=== PATIENT | female | born 1945 | race Caucasian/White ===

== ENCOUNTER 2016-04-29 20:53 | Emergency (ER) | payer OTHER ==
[~2016-04-29] VITALS: Ht 160 cm; Wt 68.0 kg
[~2016-04-29 20:53] MED LIST: CALCTAB5 PO; GABA-113 PO; LISI-788 PO; MULT-506 PO; NAPR1TAB9 PO; TRAM-10 PO
[2016-04-29 20:56] VITALS: TEMP 36.3; Ht 160 cm; Wt 68.0 kg
[2016-04-29] MEDS ORDERED: CORICIDIN PO (21:38)
[2016-04-29] MEDS ORDERED: CALC1TAB56 PO (21:38)
[2016-04-29] MEDS ORDERED: GABA-112 PO (21:38)
[2016-04-29] MEDS ORDERED: DIME50TA49 PO (21:39)
[2016-04-29] MEDS ORDERED: HYDROCODONE/ACETAMOPHEN 5/325MG TAB PO STA (21:42)
--- NOTE | 2016-04-29 22:30 | DIAGNOSTIC IMAGING REPORT ---
CHEST 2 VIEWS ROUTINE CLINICAL HISTORY: fall trauma COMPARISON STUDY: No previous studies for comparison. FINDINGS: Positive large right lateral hiatal hernia. Lungs are clear. Diaphragms smooth. HISTORY: Of scoliosis of the thoracic spine. IMPRESSION: Hiatal hernia. Spinal scoliosis. No acute process. Electronically signed by: Trip Leone M.D. 04/29/2016 10:29 PM Dictated Date/Time: 04/29/2016 10:27 PM
--- NOTE | 2016-04-29 22:32 | DIAGNOSTIC IMAGING REPORT ---
PELVIS 1 OR 2 VIEW ROUTINE CLINICAL HISTORY: fall pain COMPARISON: None DISCUSSION: Degenerative change right hip. Long-standing avascular necrosis left hip with associated substance loss left femoral head. Deformity left acetabulum. Degenerative changes low lumbar spine. . There is a fracture left pubic ring although this is obscured in part to overlying postoperative change. . IMPRESSION: 1. Nondisplaced fracture left pubic ring. 2. 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 3. No additional acute bony abnormality. Electronically signed by: Trip Leone M.D. 04/29/2016 10:31 PM Dictated Date/Time: 04/29/2016 10:29 PM
--- NOTE | 2016-04-29 22:33 | DIAGNOSTIC IMAGING REPORT ---
LUMBAR SPINE 5 VIEWS HISTORY: Trauma fall COMPARISON: None. FINDINGS: There is no fracture. Significant scoliosis. Moderate degenerative disc changes throughout. No acute compression deformity. IMPRESSION: Scoliosis. Significant degenerative change. No acute process. Electronically signed by: Trip Leone M.D. 04/29/2016 10:32 PM Dictated Date/Time: 04/29/2016 10:31 PM
[2016-04-29] MEDS ORDERED: NORCO 5/325MG HOME PACK PO ONE (22:45)
[2016-04-29] MEDS ORDERED: HYDR-5688 PO (22:48)
--- NOTE | 2016-04-29 22:57 | EMERGENCY ROOM VISIT NOTE ---
History Report prepared by Joseph: Xena Marin Under the Supervision of: Dr. Khai Saldaña D.O. First contact with patient: 21:23 Chief Complaint: FALL Stated Complaint: BACK PAIN,FALL History of Present Illness The patient is a 70 year old female who presents to the Emergency Room with complaints of a sudden fall that occurred 6 days ago. The patient was in her kitchen when she accidentally stepped on the cat and lost her balance. She fell onto her left buttock area and hit her left ribs on the corner of the counter as she fell. She denies hitting her head along with LOC. The patient states that she is experiencing pain in her left leg, which makes it hard to ambulate. The pain starts in her groin then radiates into her left lower back whenever she moves or puts weight on her left leg. She denies headaches, chest pain, shortness of breath, and abdominal pain. The patient states that she has a history of chronic back pain and is prescribed tramadol by her PCP. The tramadol has offered her minimal relief of her pain. The patient is not on any blood thinners. The patient has not seen her PCP for these symptoms. Source of History: patient Onset: 6 days ago Quality: other (fall) Timing: other (sudden) Associated Symptoms: No LOC, No SOB, No abdominal pain, No chest pain, No headache Note: left groin pain that radiates into her left lower back Review of Systems See HPI for pertinent positives & negatives. A total of 10 systems reviewed and were otherwise negative. Past Medical & Surgical Medical Problems: (1) Chronic low back pain (2) Hypertension Family History No pertinent family history Social History Smoking Status: Former Smoker Marital Status: single Current/Historical Medications Scheduled Calcium-Magnesium W/ Vitamin D (Citracal Calcium+D Slow R), 1,200 MG PO DAILY Dimenhydrinate (Dramamine), 1 TAB PO PRN UD Gabapentin (Neurontin), 300 MG PO HS Gabapentin (Neurontin), 200 MG PO BID Lisinopril/Hctz (Zestoretic 20MG/25MG), 1 TAB PO DAILY Multivitamin (Multivitamin), 1 TAB PO DAILY [Coricidin], 1 TAB PO PRN Scheduled PRN Hydrocodone/Acetaminophen 5MG/325MG (Lignum 5MG/325MG), 1 TABLET PO Q4 PRN for Pain Naproxen (Aleve), 220 MG PO Q12 PRN for Pain or Fever Tramadol (Ultram), 50-100 MG PO DAILY PRN for Pain Allergies Coded Allergies: Brimonidine (Verified Allergy, Intermediate, OTHER, 04/29/16) Toxic conjunctivitis Latex1 -Allergic Contact Dermititis (Unverified Allergy, Mild, RASH, ) Codeine (Unverified Allergy, Unknown, GI SYMPTOMS, 04/29/16) Nickel (Unverified Allergy, Unknown, RASH, 04/29/16) Oxycodone (Unverified Allergy, Unknown, GI SYMPTOMS, 04/29/16) Uncoded Allergies: LATEX1 (Allergy, Mild, RASH, 12/23/14) [id number] (Allergy, Unknown, GI SYMPTOMS, 12/23/14) [id number] (Allergy, Unknown, GI SYMPTOMS, 12/23/14) [id number] (Allergy, Unknown, RASH, 12/23/14) Physical Exam Vital Signs Date Time Temp Pulse Resp B/P Pulse Ox O2 Delivery O2 Flow Rate FiO2 04/29/16 23:00 93 20 137/97 97 Room Air 04/29/16 21:14 102 04/29/16 20:56 36.3 108 20 160/91 99 Room Air Physical Exam GENERAL: Patient is awake, alert, and in no acute distress. Patient is somewhat anxious and uncomfortable appearing. EYES: The conjunctivae are clear. The pupils are round and reactive. EARS, NOSE, MOUTH AND THROAT: The nose is without any evidence of any deformity. Mucous membranes are moist tongue is midline NECK: The neck is nontender and supple. RESPIRATORY: Normal respiratory effort is noted there is no evidence of wheezing rhonchi or rales CARDIOVASCULAR: Regular rate and rhythm noted there no murmurs rubs or gallops normal S1 normal S2 GASTROINTESTINAL: The abdomen is soft. Bowel sounds are present in all quadrants. Abdomen is nontender BACK: Low lumber spine tenderness noted to palpation. Range of motion appeared limited secondary to the pain. No step-off noted no signs of muscle spasm noted MUSCULOSKELETAL/EXTREMITIES: There is no evidence of gross deformity full range of motion is noted in the hips and shoulders SKIN: There is no obvious evidence of any rash. There are no petechiae, pallor or cyanosis noted. NEUROLOGIC: Patient is awake alert and oriented x3 strength is symmetric patellar reflexes are 2+ bilaterally Achilles tendon reflexes 1+ bilaterally great toe raise symmetric Medical Decision & Procedures ER Provider Diagnostic Interpretation: X-ray results as stated below per interpretation by me and the radiologist. CHEST 2 VIEWS ROUTINE IMPRESSION: Hiatal hernia. Spinal scoliosis. No acute process. Electronically signed by: Trip Leone M.D. 04/29/2016 10:29 PM Dictated Date/Time: 04/29/2016 10:27 PM LUMBAR SPINE 5 VIEWS IMPRESSION: Scoliosis. Significant degenerative change. No acute process. Electronically signed by: Trip Leone M.D. 04/29/2016 10:32 PM Dictated Date/Time: 04/29/2016 10:31 PM PELVIS 1 OR 2 VIEW ROUTINE IMPRESSION: 1. Nondisplaced fracture left pubic ring. 2. 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 3. No additional acute bony abnormality. Electronically signed by: Trip Leone M.D. 04/29/2016 10:31 PM Dictated Date/Time: 04/29/2016 10:29 PM Medications Administered Medications (Trade) Dose Ordered Sig/Viviane Route Start Time Stop Time Status Last Admin Dose Admin Acetaminophen/ Hydrocodone Bitart (Lignum 5/325 Tab) 2 tab ONE STAT PO 04/29/16 21:42 04/29/16 21:44 DC 04/29/16 22:25 2 TAB Acetaminophen/ Hydrocodone Bitart (Lignum 5/325mg Home Pack) 1 homepack UD ONCE PO 04/29/16 22:45 04/29/16 22:47 DC 04/29/16 22:58 1 HOMEPACK ED Course 2124: The medical student evaluated the patient at this time. We discussed her findings and potential treatment plans. 2137: The patient was evaluated in room C10. A complete history and physical examination were performed. 2141: Ordered Acetaminophen/Hydrocodone Bitart 2 tab PO 2244: Ordered Acetaminophen/Hydrocodone Bitart 1 homepack PO 2247: Upon the medical student's reevaluation, the patient is doing well. The medical student discussed the results and treatment plan with the patient. The patient verbalized agreement of the treatment plan. The patient was discharged home. Medical Decision Prior records/ancillary studies reviewed. Triage Nursing notes reviewed. The patient's history was concerning for back pain. Differential diagnosis: Etiologies such as musculoskeletal, disc herniation, fracture, aortic disease, metastatic disease, cord compression, discitis, infection, renal colic, gastrointestinal, acute exacerbation of chronic back pain, sciatica, cauda equina, as well as others were entertained. The patient is a 70-year-old female who presented to the emergency department for evaluation after a fall. The patient had a fall from a standing position and had pain in her left groin. She also had pain across her lower back. The patient's x-rays did reveal signs of a pelvic fracture. The patient was treated with pain medication in the emergency department. She was reevaluated multiple times. She was encouraged to rest and avoid any strenuous activity. She was also encouraged to continue all medications as prescribed. She's also encouraged to return the emergency Department immediately if symptoms change worsen or the need arises. Impression Primary Impression: Fall Additional Impressions: Lumbar contusion Pelvic fracture Scribe Attestation The scribe's documentation has been prepared under my direction and personally reviewed by me in its entirety. I confirm that the note above accurately reflects all work, treatment, procedures, and medical decision making performed by me. Departure Information Dispostion Home / Self-Care Prescriptions Hydrocodone/Acetaminophen 5MG/325MG (Lignum 5MG/325MG) Tab 1 TABLET PO Q4 Y for Pain, #20 TAB Prov: Khai Saldaña, 04/29/16 Referrals Jeremiah Alvarado M.D. (PCP) Forms HOME CARE DOCUMENTATION FORM, IMPORTANT VISIT INFORMATION Patient Instructions ED Back Pain Acute Chronic, ED Fx Pelvis, [facility] Additional Instructions Call your family to schedule a follow-up appointment. Rest and avoid any strenuous activity. Continue all medications as prescribed. Return to the emergency department immediately if symptoms change worsen or the need arises. If you are going to take the stronger pain medication be sure to take an over- the-counter laxative such as Miralax Problem Qualifiers Primary Impression: Fall Encounter type: initial encounter Qualified Codes: W19.XXXA - Unspecified fall, initial encounter Additional Impressions: Lumbar contusion Encounter type: initial encounter Qualified Codes: S30.0XXA - Contusion of lower back and pelvis, initial encounter Pelvic fracture Encounter type: initial encounter Pelvic bone location: unspecified part of pelvis Fracture type: closed Fracture alignment: nondisplaced Qualified Codes: S32.9XXA - Fracture of unspecified parts of lumbosacral spine and pelvis , initial encounter for closed fracture
[2016-04-29 23:00] VITALS: BP 137/97; PULSE 93; O2SAT 97
[2016-10-05] MEDS ORDERED: NRT25 PO (16:31)
[2016-10-05] MEDS ORDERED: CMD4 PO (16:31)
[2016-10-05] MEDS ORDERED: RCPAV2 IV (16:31)
[2016-10-05] MEDS ORDERED: CRDCD180 PO (16:31)
[2016-10-05] MEDS ORDERED: DLD2 PO (16:50)
[2016-10-18] MEDS ORDERED: CETI10TA84 PO (13:19)
[2016-10-18] MEDS ORDERED: FRRS300 PO (13:19)
[2016-11-26] MEDS ORDERED: HYDR2TAB48 PO (21:43)
[2016-11-26] MEDS ORDERED: TRAM-10 PO (21:43)
[2016-11-28] MEDS ORDERED: DAPTOMYCIN IV ×2 (09:46→09:48)
== END 2016-04-29 23:06 | disposition home or self-care (01) ==
LOC: C.EDB 20:54 → C.EDC 23:06
DX: S32.502A Unspecified fracture of left pubis, initial encounter for closed fracture (principal); S30.0XXA Contusion of lower back and pelvis, initial encounter; G89.29 Other chronic pain; I10 Essential (primary) hypertension; Z79.899 Other long term (current) drug therapy; Z88.5 Allergy status to narcotic agent; Z88.8 Allergy status to other drugs, medicaments and biological substances; Z91.040 Latex allergy status; Z87.891 Personal history of nicotine dependence; W01.10XA Fall on same level from slipping, tripping and stumbling with subsequent striking against unspecified object, initial encounter

== ENCOUNTER 2016-09-26 20:07 | Inpatient (IN) | payer OTHER ==
[~2016-09-26] VITALS: Ht 160 cm; Wt 70.2 kg
[~2016-09-26 20:07] MED LIST changes: +CALC1TAB56 PO; -CALCTAB5 PO; +CORICIDIN PO; +DIME50TA49 PO; +GABA-112 PO
[2016-09-26] MEDS ORDERED: MULT-845 PO (21:04)
[2016-09-26] MEDS ORDERED: CHLOTAB10 PO (21:04)
[2016-09-26] MEDS ORDERED: FAMO20TA11 PO (21:04)
[2016-09-26] MEDS ORDERED: TRAV0.00 OPB (21:04)
[2016-09-26] MEDS ORDERED: ACET-749 PO (21:07)
[2016-09-26] MEDS ORDERED: SODIUM CHLORIDE 0.9% 1000ML 1,000 ML IV STA (21:25)
[2016-09-26] MEDS ORDERED: ONDANSETRON INJ 2 MG/ML 2 ML VIAL IV STA (21:25)
[2016-09-26 21:32] LABS: BASO ABS # 0.01 K/uL (0-0.2); COMPLETE YES; HEMATOCRIT 32.1 % (37-47); IG% 0.4 %; LYMPH % 3.4 %; LYMPH ABS # 0.71 K/uL (1.2-3.4); MEAN CELL VOLUME 86.8 fL (80-100); MEAN CORPUSCULAR HEMOGLOBIN 30.8 pg (25-34); MEAN CORPUSCULAR HGB CONC 35.5 g/dl (32-36); MEAN PLATELET VOLUME 9.3 fL (7.4-10.4); MONO % 9.1 %; NEUT % 87.1 %; PLATELET COUNT 219 K/uL (130-400); WHITE BLOOD COUNT 20.85 K/uL (4.8-10.8)
--- NOTE | 2016-09-26 21:42 | EMERGENCY ROOM VISIT NOTE ---
History Report prepared by Joseph: Shannon Niño Under the Supervision of: Dr. Khai Saldaña D.O. First contact with patient: 21:19 Chief Complaint: BACK PAIN Stated Complaint: left groin/hip/back pain chronic History of Present Illness The patient is a 70 year old female who presents to the Emergency Room with complaints of persistent back pain that began yesterday around 2100. She currently rates her discomfort as a 3/10 in severity. The patient reports a long history of spinal stenosis and orthopedic problems. She states that she last had an epidural in the middle of August that typically alleviates her discomfort. The patient states that she cannot have another one until October or November. She states that last evening as she was walking to bed, she suddenly developed pain into her left groin that radiated into her left hip and left back. The patient states that she has never had pain this severe in the past. She states that she began hyperventilating because the pain was so severe. The patient states that when the pain began she took Aleve and got into bed around 2100, she denies any relief of her symptoms. The patient states that at 0200 she took Tramadol that allowed her to sleep for a little. She states that at 0600 she took another Tramadol without relief of her symptoms. The patient states that she had a left over prescribed Tylenol from one year ago, noting that she took that this morning that alleviated her pain for a slight amount of time. The patient states that her pain returned at 1400 and has been persistent since then. She reports worsened pain with movement and denies any injury. The patient states that she arrived via ALS, but was not given any medication en-route to the department. She denies any increased urination or hematuria. The patient denies any chest pain or shortness of breath. Source of History: patient Onset: yesterday around 2100 Position: back Symptom Intensity: 3/10 Timing: other (persistent) Modifying Factors (Worsening): movement Modifying Factors (Relieving): other (tramadol and prescription tylenol) Associated Symptoms: No chest pain, No SOB, No urinary symptoms Note: Associated Symptoms: hyperventilating, left groin pain, left groin pain Review of Systems See HPI for pertinent positives & negatives. A total of 10 systems reviewed and were otherwise negative. Past Medical & Surgical Medical Problems: (1) Chronic low back pain (2) Hypertension (3) Sepsis Family History No pertinent family history Social History Smoking Status: Former Smoker Marital Status: single Occupation Status: retired Current/Historical Medications Scheduled Calcium-Magnesium W/ Vitamin D (Citracal Calcium+D Slow R), 1,200 MG PO DAILY Dimenhydrinate (Dramamine), 1 TAB PO PRN UD Gabapentin (Neurontin), 300 MG PO HS Gabapentin (Neurontin), 200 MG PO BID Lisinopril/Hctz (Zestoretic 20MG/25MG), 1 TAB PO DAILY Multiple Vitamins W/ Minerals (Centrum Silver Adult 50+), 1 TAB PO DAILY Travoprost (Travatan Z), 1 DROPS OPB HS Scheduled PRN Acetaminophen/Codeine (Tylenol W/Codeine #3), 1 TAB PO DIRECTED PRN for Pain Chlorpheniramine-Dm (Coricidin Hbp Cough & Col), 1 TAB PO DIRECTED PRN for CONGESTION Famotidine (Pepcid), 20 MG PO DIRECTED PRN for Indigestion Naproxen (Aleve), 220 MG PO Q12 PRN for Pain or Fever Tramadol (Ultram), 50-100 MG PO DAILY PRN for Pain Allergies Coded Allergies: Latex1 -Allergic Contact Dermititis (Verified Allergy, Severe, RESPIRATORY DISTRESS, 09/26/16) Brimonidine (Verified Allergy, Intermediate, OTHER-SEE COMMENT, 09/26/16) Toxic conjunctivitis Nickel (Verified Allergy, Unknown, RASH, 09/26/16) Oxycodone (Verified Allergy, Unknown, GI SYMPTOMS, 09/26/16) PT STATES "CAN TAKE TYENOL W/CODIENE WITH OUT ANY DIFFICULTY". Diphenhydramine (Verified Adverse Reaction, Severe, DELIRIUM, 09/27/16) as per patient opposite effect Physical Exam Vital Signs Date Time Temp Pulse Resp B/P (MAP) Pulse Ox O2 Delivery O2 Flow Rate FiO2 09/26/16 22:40 94 18 139/73 96 Room Air 09/26/16 21:59 101 09/26/16 20:08 37.6 100 18 128/81 95 Room Air Physical Exam GENERAL: Patient is awake, alert, very anxious appearing and significantly uncomfortable. EYES: The conjunctivae are clear. The pupils are round and reactive. EARS, NOSE, MOUTH AND THROAT: The nose is without any evidence of any deformity. Mucous membranes are moist tongue is midline NECK: The neck is nontender and supple. RESPIRATORY: Normal respiratory effort is noted there is no evidence of wheezing rhonchi or rales CARDIOVASCULAR: Regular rate and rhythm noted there no murmurs rubs or gallops normal S1 normal S2 GASTROINTESTINAL: Mildly distended, but soft, no specific tenderness, guarding or rigidity noted. PELVIS: The Pelvis is stable. No tenderness to palpation is noted. BACK: Significant scoliotic change noted. Range of motion appears intact, but limited with pain. MUSCULOSKELETAL/EXTREMITIES: Significant pain with range of motion of the left hip. No shortening or deformity appreciated. SKIN: Pedal edema noted bilaterally. Skin is warm and dry. NEUROLOGIC: Patient is awake alert and oriented x3 strength is symmetric patellar reflexes are absent bilaterally. Medical Decision & Procedures ER Provider Diagnostic Interpretation: Radiology results as stated below per my review and radiologist interpretation: ABD/PELVIS NO IV OR ORAL CONT CT DOSE: 339.07 mGy.cm HISTORY: Pain left flank pain TECHNIQUE: Multiaxial CT images of the abdomen and pelvis were performed without contrast. A dose lowering technique was utilized adhering to the principles of ALARA. COMPARISON STUDY: None. FINDINGS: Lung bases are clear. There is anterior diaphragmatic hernia containing nonobstructive loops of bowel. This has been present previously. Liver is unremarkable as is the spleen. Kidneys negative for necrosis. There is chronic perinephric infiltrative change. Bowel pattern overall is nonobstructive. There is a small anterior periumbilical hernia possibly with a small nonobstructive localized adhesion area There are findings of chronic sigmoid diverticulosis. No evidence for acute diverticulitis. Considerable degenerative change of the osseous structures throughout. Severe degenerative change left hip with extensive subchondral cyst formation. Complex left hip joint effusion. Moderate degenerative change right hip. No significant right-sided effusion. IMPRESSION: 1. Severe degenerative change left hip with rather significant joint effusion. 2. Subchondral cystic formation left femoral head and to lesser extent left acetabulum. 3. All of the findings are potentially degenerative,, although I cannot entirely exclude an inflammatory component. 4. Chronic sigmoid diverticulosis. 5. Postoperative changes as noted. The above report was generated using voice recognition software. It may contain grammatical, syntax or spelling errors. Electronically signed by: Trip Leone M.D. 09/26/2016 10:30 PM Dictated Date/Time: 09/26/2016 10:25 PM CHEST ONE VIEW PORTABLE CLINICAL HISTORY: abd pain COMPARISON STUDY: 04/29/2016 FINDINGS: Elevation right hemidiaphragm with an interposed right hiatal hernia. This is similar compared to the prior study. Lungs are clear. Minimal chronic atelectatic change left base. IMPRESSION: Fixed hiatal hernia. Chronic changes as noted. No acute process. The above report was generated using voice recognition software. It may contain grammatical, syntax or spelling errors. Electronically signed by: Trip Leone M.D. 09/26/2016 10:16 PM Dictated Date/Time: 09/26/2016 10:15 PM Laboratory Results Test 09/26/16 20:15 09/26/16 23:19 09/26/16 23:20 09/26/16 23:30 Prothrombin Time 12.4 SECONDS (9.0-12.0) Prothromb Time International Ratio 1.2 (0.9-1.1) Activated Partial Thromboplast Time 34.4 SECONDS (21.0-31.0) Partial Thromboplastin Ratio 1.3 Total Bilirubin 0.7 mg/dl (0.2-1) Direct Bilirubin 0.2 mg/dl (0-0.2) Aspartate Amino Transf (AST/SGOT) 31 U/L (15-37) Alanine Aminotransferase (ALT/SGPT) 33 U/L (12-78) Alkaline Phosphatase 72 U/L (45-117) Total Protein 7.3 gm/dl (6.4-8.2) Albumin 3.8 gm/dl (3.4-5.0) Lipase 80 U/L (73-393) Thyroid Stimulating Hormone (TSH) 2.290 uIu/ml (0.300-4.500) Lyme Disease IgG Antibody NEG (NEG) Lyme Disease IgM Antibody NEG (NEG) Lactic Acid Level 1.4 mmol/L (0.4-2.0) Urine Color YELLOW Urine Appearance CLOUDY (CLEAR) Urine pH 5.5 (4.5-7.5) Urine Specific [place] 1.015 (1.000-1.030) Urine Protein NEG (NEG) Urine Glucose (UA) NEG (NEG) Urine Ketones TRACE (NEG) Urine Occult Blood TRACE (NEG) Urine Nitrite NEG (NEG) Urine Bilirubin NEG (NEG) Urine Urobilinogen NEG (NEG) Urine Leukocyte Esterase MODERATE (NEG) Urine WBC (Auto) >30 /hpf (0-5) Urine RBC (Auto) 0-4 /hpf (0-4) Urine Hyaline Casts (Auto) 5-10 /lpf (0-5) Urine Epithelial Cells (Auto) 5-10 /lpf (0-5) Urine Bacteria (Auto) 4+ (NEG) Urine Osmolality 418 mOms/kg (500-800) Urine Random Sodium 35 mEq/L Laboratory results per my review. Medications Administered Medications (Trade) Dose Ordered Sig/Viviane Route Start Time Stop Time Status Last Admin Dose Admin Sodium Chloride 1,000 ml @ 999 mls/hr Q1H1M STAT IV 09/26/16 21:25 09/26/16 22:25 DC 09/26/16 21:43 999 MLS/HR Ondansetron HCl (Zofran Inj) 4 mg NOW STAT IV 09/26/16 21:25 09/26/16 21:27 DC 09/26/16 21:43 4 MG Morphine Sulfate (MoRPHine SULFATE INJ) 4 mg Q15M PRN IV 09/26/16 21:30 09/27/16 00:41 DC 09/26/16 23:08 4 MG Ceftriaxone Sodium (Rocephin Inj) 2 gm NOW STAT IV 09/26/16 22:35 09/26/16 22:37 DC 09/26/16 23:08 2 GM Potassium Chloride (Klor-Con M10) 40 meq NOW STAT PO 09/26/16 23:07 09/26/16 23:17 DC 09/26/16 23:52 40 MEQ Acetaminophen (Tylenol Tab) 650 mg ONE STAT PO 09/26/16 23:17 09/26/16 23:18 DC 09/26/16 23:53 650 MG Vancomycin HCl 1400 mg/Sodium Chloride 528 ml @ 200 mls/hr NOW STAT IV 09/26/16 23:17 09/27/16 01:55 DC 09/26/16 23:53 200 MLS/HR ED Course 2121: The patient was evaluated in room C10. A complete history and physical examination were performed. 2124: Ordered Zofran Inj 4 mg IV, Sodium Chloride 1000 ml @ 999 mls/hr IV. 2129: Ordered Morphine Sulfate 4 mg IV. 2234: Ordered Vancomycin HCl 1400 mg/Sodium Chloride 278 ml @ 125 mls/hr IV, Rocephin Inj 2 gm IV. 2236: I reevaluated the patient and she is still not feeling well. I discussed the exam findings with her and I discussed the treatment plan. She verbalized complete understanding and agreement. She will be evaluated for further treatment. 2302: I discussed the patients case with Gucci Dwyer. He is going to evaluate the patient for further treatment. 0: I discussed the patients case with Dr. Aguilera, Orthopedics. He recommends antibiotics and joint aspiration tomorrow. Medical Decision Differential diagnosis: Etiologies such as musculoskeletal, disc herniation, fracture, aortic disease, metastatic disease, cord compression, discitis, infection, renal colic, gastrointestinal, acute exacerbation of chronic back pain, sciatica, cauda equina, as well as others were entertained. Nursing notes reviewed. Additional history is obtained from the prehospital personnel. The patient is a 70-year-old female who presented to the emergency department for an evaluation of back pain. The patient has a history of chronic back pain but states she had an acute onset of left groin pain today. Initially I thought the patient's condition could be consistent with a kidney stone because of the radiation of the back pain to the left groin. She had pain with range of motion of the left hip. I discussed the patient's laboratory and radiographic studies with her. She appeared to have a very significant elevation in her white blood cell count. Her inflammatory markers were also elevated. She was treated with IV fluids IV pain medicine and IV antiemetics. She was also treated with IV antibiotics for presumed septic joint. On CAT scan the patient appeared to have a large effusion of the left hip. I discussed her case with the on-call [employer] hospitalist as well as the on-call orthopedic physician. The patient will have an aspiration of her left hip to determine if this represents a septic joint. The meantime she'll receive IV antibiotic. I discussed the patient 's condition with her. She is agreeable to this plan at this time. Medication Reconcilliation Current Medication List: was personally reviewed by me Blood Pressure Screening Patient's blood pressure: Normal blood pressure Blood pressure disposition: Did not require urgent referral Consults Time Called: 2244 Consulting Physician: Gucci Dwyer Returned Call: [phone] I discussed the patients case with Gucci Dwyer. He is going to evaluate the patient for further treatment. Additional Consults: Time Called: 2244 Consulted Physician: Dr. Aguilera, Orthopedis Returned Call: [phone] Additional Comments: I discussed the patients case with Dr. Aguilera, Orthopedics. He recommends antibiotics and joint aspiration tomorrow. Impression Primary Impression: Left hip pain Additional Impressions: Effusion, left hip Possible septic joint Hyponatremia Abnormal white blood cell count UTI (urinary tract infection) Scribe Attestation The scribe's documentation has been prepared under my direction and personally reviewed by me in its entirety. I confirm that the note above accurately reflects all work, treatment, procedures, and medical decision making performed by me. Departure Information Dispostion Being Evaluated By Hospitalist Referrals Jeremiah Alvarado M.D. (PCP) Problem Qualifiers Additional Impressions:
[2016-09-26] MEDS: MoRPHine SULFATE 4 MG/ML 1 ML CARP\\VIAL IV PRN ×2 (21:43→23:08)
[2016-09-26 21:44] LABS: INR 1.2 (0.9-1.1); PARTIAL THROMBOPLASTIN RATIO 1.3; PROTHROMBIN TIME (PATIENT) 12.4 SECONDS (9.0-12.0)
[2016-09-26 21:49] LABS: BUN/CREATININE RATIO 21.5 (10-20); CALCIUM 9.5 mg/dl (8.5-10.1); POTASSIUM 3.1 mmol/L (3.5-5.1)
--- NOTE | 2016-09-26 22:17 | DIAGNOSTIC IMAGING REPORT ---
CHEST ONE VIEW PORTABLE CLINICAL HISTORY: abd pain COMPARISON STUDY: 04/29/2016 FINDINGS: Elevation right hemidiaphragm with an interposed right hiatal hernia. This is similar compared to the prior study. Lungs are clear. Minimal chronic atelectatic change left base. IMPRESSION: Fixed hiatal hernia. Chronic changes as noted. No acute process. The above report was generated using voice recognition software. It may contain grammatical, syntax or spelling errors. Electronically signed by: Trip Leone M.D. 09/26/2016 10:16 PM Dictated Date/Time: 09/26/2016 10:15 PM
--- NOTE | 2016-09-26 22:32 | DIAGNOSTIC IMAGING REPORT ---
ADDENDUM Comparison to a routine pelvic series dated 04/29/2016 demonstrates that the changes of the left hip potentially relate to the patient's long-standing avascular process. It appears to be unchanged compared to the prior study. Electronically signed by: Trip Leone M.D. 09/27/2016 4:42 PM Dictated Date/Time: 09/27/2016 4:40 PM ORIGINAL REPORT ABD/PELVIS NO IV OR ORAL CONT CT DOSE: 339.07 mGy.cm HISTORY: Pain left flank pain TECHNIQUE: Multiaxial CT images of the abdomen and pelvis were performed without contrast. A dose lowering technique was utilized adhering to the principles of ALARA. COMPARISON STUDY: None. FINDINGS: Lung bases are clear. There is anterior diaphragmatic hernia containing nonobstructive loops of bowel. This has been present previously. Liver is unremarkable as is the spleen. Kidneys negative for necrosis. There is chronic perinephric infiltrative change. Bowel pattern overall is nonobstructive. There is a small anterior periumbilical hernia possibly with a small nonobstructive localized adhesion area There are findings of chronic sigmoid diverticulosis. No evidence for acute diverticulitis. Considerable degenerative change of the osseous structures throughout. Severe degenerative change left hip with extensive subchondral cyst formation. Complex left hip joint effusion. Moderate degenerative change right hip. No significant right-sided effusion. IMPRESSION: 1. Severe degenerative change left hip with rather significant joint effusion. 2. Subchondral cystic formation left femoral head and to lesser extent left acetabulum. 3. All of the findings are potentially degenerative,, although I cannot entirely exclude an inflammatory component. 4. Chronic sigmoid diverticulosis. 5. Postoperative changes as noted. The above report was generated using voice recognition software. It may contain grammatical, syntax or spelling errors. Electronically signed by: Trip Leone M.D. 09/26/2016 10:30 PM Dictated Date/Time: 09/26/2016 10:25 PM
[2016-09-26] MEDS ORDERED: VANCOMYCIN INJ 1,400 MG in SODIUM CHLORIDE 0.9% 250ML 250 ML IV STA (22:35)
[2016-09-26] MEDS ORDERED: CEFTRIAXONE SOD INJ 1 GM ADDVIAL IV STA (22:35)
[2016-09-26 23:05] LABS: C-REACTIVE PROTEIN 24.2 mg/dl (0-0.29)
[2016-09-26] MEDS ORDERED: POTASSIUM CHLORIDE 10 MEQ TABCR PO STA (23:07)
[2016-09-26] MEDS ORDERED: ACETAMINOPHEN 325 MG TAB PO PRN (23:15)
[2016-09-26] MEDS ORDERED: VANCOMYCIN INJ 1,400 MG in SODIUM CHLORIDE 0.9% 500ML 500 ML IV STA (23:17)
[2016-09-26] MEDS ORDERED: ACETAMINOPHEN 325 MG TAB PO STA (23:17)
[2016-09-26 23:22] LABS: LYME DISEASE AB IGG NEG (NEG); LYME DISEASE AB IGM NEG (NEG)
[2016-09-26 23:34] LABS: URINE APPEARANCE CLOUDY (CLEAR); URINE BILIRUBIN NEG (NEG); URINE COLOR YELLOW; URINE NITRITE NEG (NEG); URINE PH 5.5 (4.5-7.5); URINE SPECIFIC GRAVITY 1.015 (1.000-1.030); UROBILINOGEN NEG (NEG)
[2016-09-26 23:39] LABS: MANUAL MICROSCOPIC REQUIRED? NO; REVIEW REQ? NO
[2016-09-26 23:49] LABS: MAGNESIUM 1.1 mg/dl (1.8-2.4)
[2016-09-27 00:06] LABS: THYROID STIMULATING HORMONE 2.29 uIu/ml (0.300-4.500)
[2016-09-27] MEDS ORDERED: THIAMINE HCL 100 MG/ML 2 ML VIAL IV STA (00:25)
[2016-09-27] MEDS ORDERED: ACETAMINOPHEN 325 MG TAB PO PRN (00:30)
[2016-09-27] MEDS ORDERED: LORAZEPAM 2 MG/ML 1 ML VIAL IV PRN (00:30)
[2016-09-27] MEDS ORDERED: IBUPROFEN 200 MG TAB PO PRN (00:30)
[2016-09-27] MEDS ORDERED: HYDROmorphone INJ 0.5 MG/0.5 ML SYR IV PRN (00:30)
[2016-09-27] MEDS ORDERED: DOCUSATE SODIUM 100 MG CAP PO STA (00:49)
[2016-09-27] MEDS ORDERED: LIDODERM (LIDOCAINE) PATCH 5% TD STA (00:53)
[2016-09-27] MEDS ORDERED: VANCOMYCIN CONSULT ACTIVE PRN (01:00)
[2016-09-27] MEDS ORDERED: KETOROLAC TROMETHAMINE 30 MG/ML VIAL IV STA (01:06)
[2016-09-27] MEDS ORDERED: LORAZEPAM INJ 0.5 MG in SYRINGE 0.75 ML IV PRN (01:15)
[2016-09-27] MEDS ORDERED: THIAMINE HCL INJ 100 MG in SYRINGE 9 ML IV SCH (01:30)
[2016-09-27] MEDS: NSS + 20MEQ KCL 1000ML 1,000 ML IV SCH ×2 (02:00→22:01)
[2016-09-27] MEDS: MAGNESIUM SULFATE 1GM / D5W 1 GM in PREMIXED IN D5W 100 ML IV SCH ×3 (02:04→05:43)
--- NOTE | 2016-09-27 02:47 | HISTORY & PHYSICAL EXAMINATION ---
DATE OF ADMISSION: 09/27/2016 PRIMARY CARE PHYSICIAN: Dr. Alvarado. CHIEF COMPLIANT: Left hip pain. HISTORY OF PRESENT ILLNESS: History obtained from patient and records. Medical history significant for hypertension, past tobacco abuse, chronic back pain, on narcotics, chronic hyponatremia, chronic anemia (baseline hemoglobin 11). Patient has had chronic back pain/chronic sciatica for years. Not interested in surgery. Patient moved to [place] a few years ago. July 2016, she had L5-S1 transforaminal epidural steroid injection by [facility] resulting in 80% relief of radicular left pain. On followup of pain management last month. Tramadol p.r.n. prescribed outpatient and epidural steroid injection as indicated. Recommendation for surgical referral w/c patient declined as per records. Last night, the patient had worsening of achy low back pain on the left, going to the left lateral thigh. Some chills. No chest pain, no shortness of breath. At the Emergency Room, the patient received vancomycin and ceftriaxone for septic arthritis. MEDICAL HISTORY: As above. SURGERIES: She has had hernia surgery. HOME MEDICATIONS: Include lisinopril/HCTZ, gabapentin, tramadol, Aleve, Travatan, Neurontin, Tylenol with Codeine, Dramamine, Pepcid. ALLERGIES: TO LATEX, OXYCODONE, NICKEL, BRIMONIDINE. FAMILY HISTORY: Hypertension. PERSONAL AND SOCIAL HISTORY: Past tobacco abuse. 6 drinks a week, denies abuse. 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 Lives with daughter. REVIEW OF SYSTEMS: As per HPI, all other ROS negative. PHYSICAL EXAMINATION: VITAL SIGNS: Blood pressure was noted to be 120/81, pulse rate 100, RR 18, temperature 37.6, sats 95 on room air. GENERAL: Noted to be comfortable, no respiratory distress. SKIN: Pallor. HEENT: Pale palpebral conjunctivae. Dry mucosa. Chronic lip asymmetry. NECK: No JVD. Supple. CHEST: Decreased breath sounds. HEART: Regular rate and rhythm. ABDOMEN: Soft. EXTREMITIES: tender left hip. Pain with motion. NEUROLOGIC: No gross focality. LABORATORY DATA: Hemoglobin was noted to be 11.4, hematocrit 31.1, white cell count 20, platelets 219. Sodium noted to be 120, potassium 3.1, chloride 103, CO2 26, BUN 22, creatinine 1, glucose 80. CT abdomen and pelvis showed severe arthritis left hip with significant joint effusion, subchondral cystic formation left femoral head, left acetabulum, potential degenerative, cannot exclude inflammatory, chronic sigmoid diverticulosis. ASSESSMENT: 1. Sepsis, possibly secondary to left hip joint. History of left L5-S1 transforaminal epidural steroid injection for chronic back pain. 2. Chronic anemia, hemoglobin at baseline. 3. Hypertension, stable. 4. Acute on chronic hyponatremia; hypokalemia secondary to clinical dehydration , home diuretic rx 5. Past tobacco abuse. PLAN: GMF CS, IV vancomycin for now. Orthopedics consult, L hip pain/effusion (ER physician already in touch with Dr. Aguilera) He recommends consulting IR for possible joint aspiration under fluoro careful correction of sodium. Hold home diuretics for now Replace potassium. Check mag. DVT prophylaxis, Lovenox subcu. Full code. MTDD
[2016-09-27 05:11] VITALS: BP 153/74; TEMP 36.9; Ht 160 cm; Wt 70.2 kg
[2016-09-27 05:57] LABS: BASO ABS # 0.01 K/uL (0-0.2); COMPLETE YES; HEMATOCRIT 27.8 % (37-47); IG% 0.5 %; LYMPH % 2.5 %; LYMPH ABS # 0.51 K/uL (1.2-3.4); MEAN CELL VOLUME 87.4 fL (80-100); MEAN CORPUSCULAR HEMOGLOBIN 30.8 pg (25-34); MEAN CORPUSCULAR HGB CONC 35.3 g/dl (32-36); MEAN PLATELET VOLUME 8.7 fL (7.4-10.4); MONO % 8.4 %; NEUT % 88.6 %; PLATELET COUNT 185 K/uL (130-400); RED BLOOD COUNT 3.18 M/uL (4.2-5.4); WHITE BLOOD COUNT 20.53 K/uL (4.8-10.8)
[2016-09-27 06:41] LABS: BUN/CREATININE RATIO 18.8 (10-20); CALCIUM 8.4 mg/dl (8.5-10.1); CREATININE 1.1 mg/dl (0.60-1.20); MAGNESIUM 2.1 mg/dl (1.8-2.4); POTASSIUM 2.9 mmol/L (3.5-5.1)
[2016-09-27 07:19] VITALS: BP 117/61; PULSE 100; TEMP 36.5; O2SAT 96
[2016-09-27] MEDS: ONDANSETRON INJ 2 MG/ML 2 ML VIAL IV PRN ×2 (07:36→20:45)
[2016-09-27] MEDS: HYDROCODONE/ACETAMOPHEN 5/325MG TAB PO PRN ×2 (07:36→20:45)
[2016-09-27] MEDS: LISINOPRIL 20 MG TAB PO SCH (07:37)
[2016-09-27] MEDS: ENOXAPARIN 30 MG/0.3 ML SYR SQ SCH (07:37)
[2016-09-27] MEDS: CEROVITE ADV FORMULA TAB PO SCH (07:38)
[2016-09-27] MEDS: GABAPENTIN 100 MG CAP PO SCH ×2 (07:38→14:55)
[2016-09-27 08:00] VITALS: O2SAT 96
--- NOTE | 2016-09-27 09:28 | Pharmacy Progress Note ---
Pharmacy Abx Initial Consult Date of Service Sep 27, 2016. Pharmacy Dosing Scope Date of Consult: 09/27/16 Consultation requested by: Dr. Andres Will Pharmacy is consulted to initiate Vancomycin IV dosing therapy, order appropriate labs and adjust drug dose/frequency. Subjective The patient is a 70 year old female admitted on Sep 27, 2016 at 00:00 with left hip pain and possible sepsis secondary to a septic left hip joint. Objective Height (Feet): 5 Height (Inches): 3.00 Weight (Kilograms): 69.700 Vital Signs (Past 12Hrs) Vital Signs Past 12 Hours Date Time Temp Pulse Resp B/P (MAP) Pulse Ox O2 Delivery O2 Flow Rate FiO2 09/27/16 07:19 36.5 100 18 117/61 (79) 96 Room Air 09/27/16 05:11 36.9 18 153/74 Room Air 09/27/16 01:05 36.9 104 18 153/74 96 09/26/16 22:40 94 18 139/73 96 Room Air 09/26/16 21:59 101 Lab Results (24Hrs) Laboratory Tests (24 Hours) Test 09/26/16 20:15 09/26/16 23:19 09/27/16 05:20 C-Reactive Protein 24.20 mg/dl (0-0.29) H Erythrocyte Sedimentation Rate 25 mm/hr (0-21) H Lactic Acid Level 1.4 mmol/L (0.4-2.0) White Blood Count 20.53 K/uL (4.8-10.8) H Red Blood Count 3.18 M/uL (4.2-5.4) L Hemoglobin 9.8 g/dL (12.0-16.0) L Hematocrit 27.8 % (37-47) L Mean Corpuscular Volume 87.4 fL (80-100) Mean Corpuscular Hemoglobin 30.8 pg (25-34) Mean Corpuscular Hemoglobin Concent 35.3 g/dl (32-36) Platelet Count 185 K/uL (130-400) Mean Platelet Volume 8.7 fL (7.4-10.4) Neutrophils (%) (Auto) 88.6 % Lymphocytes (%) (Auto) 2.5 % Monocytes (%) (Auto) 8.4 % Eosinophils (%) (Auto) 0.0 % Basophils (%) (Auto) 0.0 % Neutrophils # (Auto) 18.19 K/uL (1.4-6.5) H Lymphocytes # (Auto) 0.51 K/uL (1.2-3.4) L Monocytes # (Auto) 1.72 K/uL (0.11-0.59) H Eosinophils # (Auto) 0.00 K/uL (0-0.5) Basophils # (Auto) 0.01 K/uL (0-0.2) Micro Results Date/Time Source Procedure Growth Status 09/26/16 23:19 Blood Blood Culture Pending Received 09/26/16 23:13 Blood Blood Culture Pending Received 09/27/16 08:49 Joint Fluid/Space (Synovial) Hip , Left Gram Stain Pending Ordered 09/27/16 08:49 Joint Fluid/Space (Synovial) Hip , Left Bacterial Culture Pending Ordered 09/26/16 23:30 Urine , Clean Catch Urine Culture Pending Received Assessment & Plan Assessment 70 year old female admitted overnight with left hip pain, possible sepsis, secondary to a septic left hip joint. Vancomycin IV initiated empirically pending culture results. Blood cultures, urine culture and joint space culture pending. Will order MRSA nasal swab. Plan IV Vancomycin for treatment of skin and skin structure infection involving the left hip joint and possible sepsis. Vancomycin IV * Loading dose: 1400 mg (20 mg/kg) * Maintenance dose: 1050 mg IV (15 mg/kg) every 18] hours * Goal trough level for septic hip joint/sepsis: 15 to 20 mcg/mL * Trough level ordered for 09/29/16 prior to the 2000 hours IV Vancomycin dose Pharmacy will continue to follow and will adjust dose/frequency as necessary. Thank you.
[2016-09-27] MEDS: KETOROLAC TROMETHAMINE 15 MG/ML VIAL IV. PRN ×3 (09:32→22:11)
[2016-09-27 14:51] VITALS: BP 128/73; PULSE 103; TEMP 36.6; O2SAT 99
[2016-09-27] MEDS: VANCOMYCIN INJ 1,050 MG in SODIUM CHLORIDE 0.9% 250ML 250 ML IV SCH (14:54)
[2016-09-27 16:00] VITALS: O2SAT 99
[2016-09-27 17:01] LABS: BUN/CREATININE RATIO 20.3 (10-20); CREATININE 0.98 mg/dl (0.60-1.20); POTASSIUM 3.3 mmol/L (3.5-5.1)
--- NOTE | 2016-09-27 17:12 | Orthopedic Consultation ---
Orthopedic Consultation Date of Consultation: Sep 27, 2016. Attending Physician: Julien Baez M.D. Reason for Consultation: L hip effusion and pain History of Present Illness 70-year-old female with extensive past lumbar history. About a month ago she had injection for pain management for treatment of right-sided radicular symptoms. She states this relieved about 80% of the radicular symptoms is having on the right side. Starting on Saturday she started having progressively worsening left-sided hip pain. She'll be suspended groin. She denies any radicular pain. Denies any neurologic symptoms in the left leg. She has had difficulty in ambulation and pain control both from her back as well as her hip for a number years. Pain became progressively worse she presented to the emergency room Saturday night. This morning the pain is significantly increased and she is having difficulty laying supine needs to lay on the right side as to take pressure off the left side. 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 She had previous x-ray in April which demonstrated the femoral head collapse which she not been made aware of. She denies any fevers but had chills Saturday night and felt it was secondary to the before meals being on too high. No other symptoms including no chest pain shortness of breath or abdominal symptoms Past Medical/Surgical History Medical Problems: (1) Abnormal white blood cell count Status: Acute (2) Effusion, left hip Status: Acute (3) Fall Status: Acute (4) Fall Status: Acute (5) Hyponatremia Status: Acute (6) Left hip pain Status: Acute (7) Lumbar contusion Status: Acute (8) Lumbar contusion Status: Acute (9) Pelvic fracture Status: Acute (10) Pelvic fracture Status: Acute (11) UTI (urinary tract infection) Status: Acute Family History No pertinent family history Social History Smoking Status: Unknown if Ever Smoked Marital Status: single Occupation Status: retired Allergies Coded Allergies: Latex1 -Allergic Contact Dermititis (Verified Allergy, Severe, RESPIRATORY DISTRESS, 09/26/16) Brimonidine (Verified Allergy, Intermediate, OTHER-SEE COMMENT, 09/26/16) Toxic conjunctivitis Nickel (Verified Allergy, Unknown, RASH, 09/26/16) Oxycodone (Verified Allergy, Unknown, GI SYMPTOMS, 09/26/16) PT STATES "CAN TAKE TYENOL W/CODIENE WITH OUT ANY DIFFICULTY". Home Medications Scheduled Calcium-Magnesium W/ Vitamin D (Citracal Calcium+D Slow R), 1,200 MG PO DAILY Dimenhydrinate (Dramamine), 1 TAB PO PRN UD Gabapentin (Neurontin), 300 MG PO HS Gabapentin (Neurontin), 200 MG PO BID Lisinopril/Hctz (Zestoretic 20MG/25MG), 1 TAB PO DAILY Multiple Vitamins W/ Minerals (Centrum Silver Adult 50+), 1 TAB PO DAILY Travoprost (Travatan Z), 1 DROPS OPB HS Scheduled PRN Acetaminophen/Codeine (Tylenol W/Codeine #3), 1 TAB PO DIRECTED PRN for Pain Chlorpheniramine-Dm (Coricidin Hbp Cough & Col), 1 TAB PO DIRECTED PRN for CONGESTION Famotidine (Pepcid), 20 MG PO DIRECTED PRN for Indigestion Naproxen (Aleve), 220 MG PO Q12 PRN for Pain or Fever Tramadol (Ultram), 50-100 MG PO DAILY PRN for Pain Current Inpatient Medications Current Inpatient Medications Medications (Trade) Dose Ordered Sig/Viviane Route Start Time Stop Time Status Last Admin Dose Admin Enoxaparin Sodium (Lovenox Inj) 30 mg Q24H SQ 09/27/16 09:00 10/27/16 08:59 09/27/16 07:37 30 MG Acetaminophen (Tylenol Tab) 650 mg Q4H PRN PO 09/27/16 00:30 10/27/16 00:29 Ketorolac Tromethamine (Toradol Inj) 15 mg Q6H PRN IV. 09/27/16 00:30 10/02/16 00:29 09/27/16 16:13 15 MG Ibuprofen (Advil Tab) 400 mg Q6H PRN PO 09/27/16 00:30 10/27/16 00:29 Lidocaine (Lidoderm Patch 5%) 1 patch QAM TD 09/28/16 09:00 10/28/16 08:59 Vancomycin HCl (Consult) 1 ea UD PRN N/A 09/27/16 01:00 10/27/16 00:59 Potassium Chloride/Sodium Chloride 1,000 ml @ 50 mls/hr Q20H IV 09/27/16 01:30 10/27/16 01:29 09/27/16 02:00 50 MLS/HR Ondansetron HCl (Zofran Inj) 4 mg Q6H PRN IV 09/27/16 00:30 10/27/16 00:29 09/27/16 07:36 4 MG Lorazepam (Ativan Inj) 0.5 mg Q4H PRN IV 09/27/16 00:30 10/27/16 00:29 Miscellaneous (Remove Lidoderm Patch) 1 ea DAILY@21 N/A 09/27/16 14:00 10/27/16 13:59 Gabapentin (Neurontin Cap) 200 mg BID@0900,1400 PO 09/27/16 09:00 10/27/16 08:59 09/27/16 14:55 200 MG Gabapentin (Neurontin Cap) 300 mg HS PO 09/27/16 21:00 10/27/16 20:59 Multivitamins/ Minerals (Multivitamin W/ Minerals Tab) 1 tab DAILY PO 09/27/16 09:00 10/27/16 08:59 09/27/16 07:38 1 TAB Tramadol HCl (Ultram Tab) pain not relieved by ibupropen/tylenol Q6H PRN PO 09/27/16 00:30 10/27/16 00:29 Travoprost (Travatan Z) 1 drops HS OPB 09/27/16 21:00 10/27/16 20:59 Acetaminophen/ Hydrocodone Bitart ([place] 5/325 Tab) 1 tab Q4H PRN PO 09/27/16 00:30 10/11/16 00:29 09/27/16 07:36 1 TAB Docusate Sodium (coLACE CAP) 100 mg DAILY PO 09/28/16 09:00 10/28/16 08:59 Lisinopril (Zestril Tab) 20 mg QAM PO 09/27/16 09:00 10/27/16 08:59 09/27/16 07:37 20 MG Lorazepam 0.5 mg/ Syringe 1 ml @ 1 mls/min Q4H PRN IV 09/27/16 01:15 10/27/16 01:14 Vancomycin HCl 1050 mg/Sodium Chloride 271 ml @ 125 mls/hr Q18H IV 09/27/16 14:00 10/06/16 22:59 09/27/16 14:54 125 MLS/HR Morphine Sulfate (MoRPHine SULFATE INJ) 4 mg Q4HWA PRN IV 09/27/16 15:45 10/11/16 15:44 Review of Systems Constitutional: + chills Physical Exam Date Time Temp Pulse Resp B/P (MAP) Pulse Ox O2 Delivery O2 Flow Rate FiO2 09/27/16 14:51 36.6 103 18 128/73 (91) 99 Room Air 09/27/16 08:00 96 Room Air 09/27/16 07:19 36.5 100 18 117/61 (79) 96 Room Air 09/27/16 05:11 36.9 18 153/74 Room Air 09/27/16 01:05 36.9 104 18 153/74 96 09/26/16 22:40 94 18 139/73 96 Room Air 09/26/16 21:59 101 09/26/16 20:08 37.6 100 18 128/81 95 Room Air General Appearance: WD/WN, + mild distress Head: normocephalic, atraumatic Eyes: normal inspection ENT: normal ENT inspection Neck: supple Respiratory/Chest: normal breath sounds Cardiovascular: regular rate, rhythm Extremities/Musculoskelatal: + pertinent finding (significant pain with rotation to L hip, holds it in flexed position. no erythema, no swelling, no induration) Laboratory Results Last 24 Hours Test 09/26/16 20:15 09/26/16 23:19 09/26/16 23:20 09/26/16 23:30 White Blood Count 20.85 K/uL Red Blood Count 3.70 M/uL Hemoglobin 11.4 g/dL Hematocrit 32.1 % Mean Corpuscular Volume 86.8 fL Mean Corpuscular Hemoglobin 30.8 pg Mean Corpuscular Hemoglobin Concent 35.5 g/dl Platelet Count 219 K/uL Mean Platelet Volume 9.3 fL Neutrophils (%) (Auto) 87.1 % Lymphocytes (%) (Auto) 3.4 % Monocytes (%) (Auto) 9.1 % Eosinophils (%) (Auto) 0.0 % Basophils (%) (Auto) 0.0 % Neutrophils # (Auto) 18.14 K/uL Lymphocytes # (Auto) 0.71 K/uL Monocytes # (Auto) 1.89 K/uL Eosinophils # (Auto) 0.01 K/uL Basophils # (Auto) 0.01 K/uL RDW Standard Deviation 43.4 fL RDW Coefficient of Variation 13.5 % Immature Granulocyte % (Auto) 0.4 % Immature Granulocyte # (Auto) 0.09 K/uL Erythrocyte Sedimentation Rate 25 mm/hr Prothrombin Time 12.4 SECONDS Prothromb Time International Ratio 1.2 Activated Partial Thromboplast Time 34.4 SECONDS Partial Thromboplastin Ratio 1.3 Sodium Level 120 mmol/L Potassium Level 3.1 mmol/L Chloride Level 83 mmol/L Carbon Dioxide Level 26 mmol/L Anion Gap 11.0 mmol/L Blood Urea Nitrogen 22 mg/dl Creatinine 1.00 mg/dl Est Creatinine Clear Calc Drug Dose 49.7 ml/min Estimated GFR () 66.6 Estimated GFR (Non- 57.4 BUN/Creatinine Ratio 21.5 Random Glucose 80 mg/dl Osmolality 249 mOsm/kg Calcium Level 9.5 mg/dl Magnesium Level 1.1 mg/dl Total Bilirubin 0.7 mg/dl Direct Bilirubin 0.2 mg/dl Aspartate Amino Transf (AST/SGOT) 31 U/L Alanine Aminotransferase (ALT/SGPT) 33 U/L Alkaline Phosphatase 72 U/L C-Reactive Protein 24.20 mg/dl Total Protein 7.3 gm/dl Albumin 3.8 gm/dl Lipase 80 U/L Thyroid Stimulating Hormone (TSH) 2.290 uIu/ml Lyme Disease IgG Antibody NEG Lyme Disease IgM Antibody NEG Lactic Acid Level 1.4 mmol/L Urine Color YELLOW Urine Appearance CLOUDY Urine pH 5.5 Urine Specific [place] 1.015 Urine Protein NEG Urine Glucose (UA) NEG Urine Ketones TRACE Urine Occult Blood TRACE Urine Nitrite NEG Urine Bilirubin NEG Urine Urobilinogen NEG Urine Leukocyte Esterase MODERATE Urine WBC (Auto) >30 /hpf Urine RBC (Auto) 0-4 /hpf Urine Hyaline Casts (Auto) 5-10 /lpf Urine Epithelial Cells (Auto) 5-10 /lpf Urine Bacteria (Auto) 4+ Urine Osmolality 418 mOms/kg Urine Random Sodium 35 mEq/L Test 09/27/16 01:34 09/27/16 05:20 09/27/16 08:49 09/27/16 16:28 Sodium Level 123 mmol/L 124 mmol/L 124 mmol/L Ethyl Alcohol mg/dL < 3.0 mg/dl White Blood Count 20.53 K/uL Red Blood Count 3.18 M/uL Hemoglobin 9.8 g/dL Hematocrit 27.8 % Mean Corpuscular Volume 87.4 fL Mean Corpuscular Hemoglobin 30.8 pg Mean Corpuscular Hemoglobin Concent 35.3 g/dl Platelet Count 185 K/uL Mean Platelet Volume 8.7 fL Neutrophils (%) (Auto) 88.6 % Lymphocytes (%) (Auto) 2.5 % Monocytes (%) (Auto) 8.4 % Eosinophils (%) (Auto) 0.0 % Basophils (%) (Auto) 0.0 % Neutrophils # (Auto) 18.19 K/uL Lymphocytes # (Auto) 0.51 K/uL Monocytes # (Auto) 1.72 K/uL Eosinophils # (Auto) 0.00 K/uL Basophils # (Auto) 0.01 K/uL RDW Standard Deviation 43.4 fL RDW Coefficient of Variation 13.4 % Immature Granulocyte % (Auto) 0.5 % Immature Granulocyte # (Auto) 0.10 K/uL Potassium Level 2.9 mmol/L 3.3 mmol/L Chloride Level 89 mmol/L 93 mmol/L Carbon Dioxide Level 27 mmol/L 22 mmol/L Anion Gap 8.0 mmol/L 9.0 mmol/L Blood Urea Nitrogen 21 mg/dl 20 mg/dl Creatinine 1.10 mg/dl 0.98 mg/dl Est Creatinine Clear Calc Drug Dose 45.2 ml/min 50.7 ml/min Estimated GFR () 59.3 68.2 Estimated GFR (Non- 51.2 58.9 BUN/Creatinine Ratio 18.8 20.3 Random Glucose 119 mg/dl 79 mg/dl Calcium Level 8.4 mg/dl 9.0 mg/dl Magnesium Level 2.1 mg/dl Assessment & Plan (1) Left hip pain (2) Effusion, left hip Possible septic L hip An order for a fluoroscopic-guided left hip aspiration had been placed early this morning. It is my understanding however that this was never communicated to the radiology department. I have spoken with radiology and they're planning on coming to perform the left hip aspiration. The concern is obviously for septic left hip. She has an effusion on CT scan as well as an elevated white count of 20 and positive blood cultures growing gram-positive cocci. 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 If the aspiration comes back positive for infection she'll need irrigation and debridement of the hip joint.
--- NOTE | 2016-09-27 17:53 | DIAGNOSTIC IMAGING REPORT ---
FLUOROSCOPICALLY GUIDED LEFT HIP ASPIRATION CLINICAL HISTORY: Left hip pain. Elevated white count. Possible septic joint. COMPARISON STUDY: CT scan dated September 26, 2016 FLUOROSCOPY TIME: 60 seconds. NUMBER OF FLUOROSCOPIC IMAGES: 4 FINDINGS: A timeout was performed. The risks the procedure were explained the patient informed consent was obtained. The patient was prepped and draped in sterile fashion. The skin was anesthetized 1% lidocaine. A 20-gauge spinal needle was introduced the joint. No fluid could be aspirated. Saline was instilled. No fluid was withdrawn. The needle was repositioned several times. No fluid could be obtained. Optiray 300 was instilled through the needle documenting intra-articular location of the needle. IMPRESSION: No joint fluid could be aspirated, despite intra-articular location of the needle. Electronically signed by: Reggie Cota M.D. 09/27/2016 5:51 PM Dictated Date/Time: 09/27/2016 5:49 PM
[2016-09-27] MEDS: MoRPHine SULFATE 4 MG/ML 1 ML CARP\\VIAL IV PRN (18:00)
--- NOTE | 2016-09-27 18:48 | Progress Note ---
Medicine Progress Note Date & Time of Visit: Sep 27, 2016 at 18:19. Subjective Pt was seen and examined Lying in bed complaint of left hip pain Pt said that pain is worst when moving the leg she said that the toradol seems to help with the pain denies any fever, palpitation, dizziness and SOB Objective Last 8 Hrs Date Time Temp Pulse Resp B/P (MAP) Pulse Ox O2 Delivery O2 Flow Rate FiO2 09/27/16 16:00 99 Room Air 09/27/16 14:51 36.6 103 18 128/73 (91) 99 Room Air Physical Exam: General- Not in any distress Head- atraumatic Eyes- PERRL, EOMI ENT- oropharynx clear Neck- supple, no JVD Lungs- No wheezing, No rales Heart- regular rhythm; no murmur Abdomen- normal bowel sounds, soft Extremities-no calf tenderness, tenderness in the left hip area Neuro- alert, oriented x 3; PERRL, EOMI Skin- warm & dry Laboratory Results: Last 24 Hours Test 09/26/16 20:15 09/26/16 23:19 09/26/16 23:20 09/26/16 23:30 White Blood Count 20.85 K/uL Red Blood Count 3.70 M/uL Hemoglobin 11.4 g/dL Hematocrit 32.1 % Mean Corpuscular Volume 86.8 fL Mean Corpuscular Hemoglobin 30.8 pg Mean Corpuscular Hemoglobin Concent 35.5 g/dl Platelet Count 219 K/uL Mean Platelet Volume 9.3 fL Neutrophils (%) (Auto) 87.1 % Lymphocytes (%) (Auto) 3.4 % Monocytes (%) (Auto) 9.1 % Eosinophils (%) (Auto) 0.0 % Basophils (%) (Auto) 0.0 % Neutrophils # (Auto) 18.14 K/uL Lymphocytes # (Auto) 0.71 K/uL Monocytes # (Auto) 1.89 K/uL Eosinophils # (Auto) 0.01 K/uL Basophils # (Auto) 0.01 K/uL RDW Standard Deviation 43.4 fL RDW Coefficient of Variation 13.5 % Immature Granulocyte % (Auto) 0.4 % Immature Granulocyte # (Auto) 0.09 K/uL Erythrocyte Sedimentation Rate 25 mm/hr Prothrombin Time 12.4 SECONDS Prothromb Time International Ratio 1.2 Activated Partial Thromboplast Time 34.4 SECONDS Partial Thromboplastin Ratio 1.3 Sodium Level 120 mmol/L Potassium Level 3.1 mmol/L Chloride Level 83 mmol/L Carbon Dioxide Level 26 mmol/L Anion Gap 11.0 mmol/L Blood Urea Nitrogen 22 mg/dl Creatinine 1.00 mg/dl Est Creatinine Clear Calc Drug Dose 49.7 ml/min Estimated GFR () 66.6 Estimated GFR (Non- 57.4 BUN/Creatinine Ratio 21.5 Random Glucose 80 mg/dl Osmolality 249 mOsm/kg Calcium Level 9.5 mg/dl Magnesium Level 1.1 mg/dl Total Bilirubin 0.7 mg/dl Direct Bilirubin 0.2 mg/dl Aspartate Amino Transf (AST/SGOT) 31 U/L Alanine Aminotransferase (ALT/SGPT) 33 U/L Alkaline Phosphatase 72 U/L C-Reactive Protein 24.20 mg/dl Total Protein 7.3 gm/dl Albumin 3.8 gm/dl Lipase 80 U/L Thyroid Stimulating Hormone (TSH) 2.290 uIu/ml Lyme Disease IgG Antibody NEG Lyme Disease IgM Antibody NEG Lactic Acid Level 1.4 mmol/L Urine Color YELLOW Urine Appearance CLOUDY Urine pH 5.5 Urine Specific [place] 1.015 Urine Protein NEG Urine Glucose (UA) NEG Urine Ketones TRACE Urine Occult Blood TRACE Urine Nitrite NEG Urine Bilirubin NEG Urine Urobilinogen NEG Urine Leukocyte Esterase MODERATE Urine WBC (Auto) >30 /hpf Urine RBC (Auto) 0-4 /hpf Urine Hyaline Casts (Auto) 5-10 /lpf Urine Epithelial Cells (Auto) 5-10 /lpf Urine Bacteria (Auto) 4+ Urine Osmolality 418 mOms/kg Urine Random Sodium 35 mEq/L Test 09/27/16 01:34 09/27/16 05:20 09/27/16 08:49 09/27/16 16:28 Sodium Level 123 mmol/L 124 mmol/L 124 mmol/L Ethyl Alcohol mg/dL < 3.0 mg/dl White Blood Count 20.53 K/uL Red Blood Count 3.18 M/uL Hemoglobin 9.8 g/dL Hematocrit 27.8 % Mean Corpuscular Volume 87.4 fL Mean Corpuscular Hemoglobin 30.8 pg Mean Corpuscular Hemoglobin Concent 35.3 g/dl Platelet Count 185 K/uL Mean Platelet Volume 8.7 fL Neutrophils (%) (Auto) 88.6 % Lymphocytes (%) (Auto) 2.5 % Monocytes (%) (Auto) 8.4 % Eosinophils (%) (Auto) 0.0 % Basophils (%) (Auto) 0.0 % Neutrophils # (Auto) 18.19 K/uL Lymphocytes # (Auto) 0.51 K/uL Monocytes # (Auto) 1.72 K/uL Eosinophils # (Auto) 0.00 K/uL Basophils # (Auto) 0.01 K/uL RDW Standard Deviation 43.4 fL RDW Coefficient of Variation 13.4 % Immature Granulocyte % (Auto) 0.5 % Immature Granulocyte # (Auto) 0.10 K/uL Potassium Level 2.9 mmol/L 3.3 mmol/L Chloride Level 89 mmol/L 93 mmol/L Carbon Dioxide Level 27 mmol/L 22 mmol/L Anion Gap 8.0 mmol/L 9.0 mmol/L Blood Urea Nitrogen 21 mg/dl 20 mg/dl Creatinine 1.10 mg/dl 0.98 mg/dl Est Creatinine Clear Calc Drug Dose 45.2 ml/min 50.7 ml/min Estimated GFR () 59.3 68.2 Estimated GFR (Non- 51.2 58.9 BUN/Creatinine Ratio 18.8 20.3 Random Glucose 119 mg/dl 79 mg/dl Calcium Level 8.4 mg/dl 9.0 mg/dl Magnesium Level 2.1 mg/dl Date/Time Source Procedure Growth Status 09/26/16 23:19 Blood Blood Culture - Preliminary Gram Positive Cocci Resulted 09/26/16 23:13 Blood Blood Culture - Preliminary Gram Positive Cocci Resulted 09/27/16 16:28 Joint Fluid/Space (Synovial) Hip , Left Gram Stain Pending Ordered 09/27/16 16:28 Joint Fluid/Space (Synovial) Hip , Left Bacterial Culture Pending Ordered 09/27/16 08:49 Joint Fluid/Space (Synovial) Hip , Left Gram Stain Pending Ordered 09/27/16 08:49 Joint Fluid/Space (Synovial) Hip , Left Bacterial Culture Pending Ordered 09/27/16 00:00 Nasal MRSA DNA Surveillance Screen Pending Received 09/27/16 03:30 Urine , Clean Catch Urine Culture Pending Received Assessment & Plan Septic arthritis Meet sepsis criteria Tachycardia, Elevated WBC, febrile, Positive blood cx Severe Left hip pain CT abd/pelvis showed Severe degenerative change left hip with rather significant joint effusion Ortho consulted IR consulted for left hip joint aspiration No joint fluid could be aspirated by radiology Received Rocephin in the ER Continue Vanco IV Pain control Bacteremia Blood cx positive for gram positive cocci Elevated WBC Already on Vanco IV will consult ID will get echo to r/o any endocarditis Will repeat blood cx tomorrow Hyponatremia NA 124 Possible related to SIADH Low serum osmolarity, urine osmolarity elevated On NS @50ml Will start on salt tab Lisinopril/HCTZ on hold consult nephrology Continue monitor BMP Might consider to start lasix if NA does not improved. Chronic back pain. had epidural injection few months ago, with no help Continue tramadol prn Chronic anemia Hemoglobin stable Hypokalemia K replaced Monitor BMP Hypertension Lisinopril/HCTZ on hold BP stable. DVT Px on lovenox (Consider to hold for any surgical procedure) CODE STATUS FULL CODE Consultants: ID ORTHO NEPHRO Current Inpatient Medications: Current Inpatient Medications Medications (Trade) Dose Ordered Sig/Viviane Route Start Time Stop Time Status Last Admin Dose Admin Enoxaparin Sodium (Lovenox Inj) 30 mg Q24H SQ 09/27/16 09:00 10/27/16 08:59 09/27/16 07:37 30 MG Acetaminophen (Tylenol Tab) 650 mg Q4H PRN PO 09/27/16 00:30 10/27/16 00:29 Ketorolac Tromethamine (Toradol Inj) 15 mg Q6H PRN IV. 09/27/16 00:30 10/02/16 00:29 09/27/16 16:13 15 MG Ibuprofen (Advil Tab) 400 mg Q6H PRN PO 09/27/16 00:30 10/27/16 00:29 Lidocaine (Lidoderm Patch 5%) 1 patch QAM TD 09/28/16 09:00 10/28/16 08:59 Vancomycin HCl (Consult) 1 ea UD PRN N/A 09/27/16 01:00 10/27/16 00:59 Potassium Chloride/Sodium Chloride 1,000 ml @ 50 mls/hr Q20H IV 09/27/16 01:30 10/27/16 01:29 09/27/16 02:00 50 MLS/HR Ondansetron HCl (Zofran Inj) 4 mg Q6H PRN IV 09/27/16 00:30 10/27/16 00:29 09/27/16 07:36 4 MG Lorazepam (Ativan Inj) 0.5 mg Q4H PRN IV 09/27/16 00:30 10/27/16 00:29 Miscellaneous (Remove Lidoderm Patch) 1 ea DAILY@21 N/A 09/27/16 14:00 10/27/16 13:59 Gabapentin (Neurontin Cap) 200 mg BID@0900,1400 PO 09/27/16 09:00 10/27/16 08:59 09/27/16 14:55 200 MG Gabapentin (Neurontin Cap) 300 mg HS PO 09/27/16 21:00 10/27/16 20:59 Multivitamins/ Minerals (Multivitamin W/ Minerals Tab) 1 tab DAILY PO 09/27/16 09:00 10/27/16 08:59 09/27/16 07:38 1 TAB Tramadol HCl (Ultram Tab) pain not relieved by ibupropen/tylenol Q6H PRN PO 09/27/16 00:30 10/27/16 00:29 Travoprost (Travatan Z) 1 drops HS OPB 09/27/16 21:00 10/27/16 20:59 Acetaminophen/ Hydrocodone Bitart ([place] 5/325 Tab) 1 tab Q4H PRN PO 09/27/16 00:30 10/11/16 00:29 09/27/16 07:36 1 TAB Docusate Sodium (coLACE CAP) 100 mg DAILY PO 09/28/16 09:00 10/28/16 08:59 Lisinopril (Zestril Tab) 20 mg QAM PO 09/27/16 09:00 10/27/16 08:59 09/27/16 07:37 20 MG Lorazepam 0.5 mg/ Syringe 1 ml @ 1 mls/min Q4H PRN IV 09/27/16 01:15 10/27/16 01:14 Vancomycin HCl 1050 mg/Sodium Chloride 271 ml @ 125 mls/hr Q18H IV 09/27/16 14:00 10/06/16 22:59 09/27/16 14:54 125 MLS/HR Morphine Sulfate (MoRPHine SULFATE INJ) 4 mg Q4HWA PRN IV 09/27/16 15:45 10/11/16 15:44 09/27/16 18:00 4 MG
[2016-09-27] MEDS: SODIUM CHLORIDE 1 GM TAB PO SCH (20:45)
[2016-09-27] MEDS: TRAVOPROST Z 0.004% OPH SOLN 2.5 ML BTL OPB SCH (20:46)
[2016-09-27] MEDS: GABAPENTIN 300 MG CAP PO SCH (20:47)
[2016-09-27] MEDS ORDERED: FAMOTIDINE 20 MG TAB PO ONE (22:38)
[2016-09-27 22:39] VITALS: BP 114/59; PULSE 107; TEMP 36.9; O2SAT 93
[2016-09-27] MEDS ORDERED: FAMOTIDINE 20 MG TAB PO PRN (22:45)
[2016-09-28] VITALS: O2SAT 99
[2016-09-28] MEDS: MoRPHine SULFATE 4 MG/ML 1 ML CARP\\VIAL IV PRN ×3 (03:04→15:42)
[2016-09-28] MEDS: TRAMADOL HCL 50 MG TAB PO PRN (03:39)
[2016-09-28] MEDS: KETOROLAC TROMETHAMINE 15 MG/ML VIAL IV. PRN ×3 (06:18→18:51)
[2016-09-28 06:32] LABS: HEMATOCRIT 28.9 % (37-47); MEAN CELL VOLUME 87.8 fL (80-100); MEAN CORPUSCULAR HEMOGLOBIN 30.4 pg (25-34); MEAN CORPUSCULAR HGB CONC 34.6 g/dl (32-36); MEAN PLATELET VOLUME 8.5 fL (7.4-10.4); PLATELET COUNT 151 K/uL (130-400); RED BLOOD COUNT 3.29 M/uL (4.2-5.4)
[2016-09-28 07:06] LABS: BUN/CREATININE RATIO 20.3 (10-20); CREATININE 0.97 mg/dl (0.60-1.20); POTASSIUM 3.6 mmol/L (3.5-5.1)
[2016-09-28 07:12] VITALS: BP 114/69; PULSE 114; TEMP 37.3; O2SAT 94
[2016-09-28 07:15] LABS: C-REACTIVE PROTEIN 33.1 mg/dl (0-0.29)
[2016-09-28 07:19] LABS: BASO % 0.1 %; BASO ABS # 0.01 K/uL (0-0.2); COMPLETE YES; DOHLE BODIES 1+; IG% 0.4 %; LYMPH % 2.4 %; LYMPH ABS # 0.38 K/uL (1.2-3.4); MONO % 5.9 %; NEUT % 91.2 %
[2016-09-28] MEDS: VANCOMYCIN INJ 1,050 MG in SODIUM CHLORIDE 0.9% 250ML 250 ML IV SCH (08:10)
[2016-09-28] MEDS: LISINOPRIL 20 MG TAB PO SCH (08:12)
[2016-09-28] MEDS: SODIUM CHLORIDE 1 GM TAB PO SCH ×2 (08:12→21:19)
[2016-09-28] MEDS: GABAPENTIN 100 MG CAP PO SCH ×2 (08:13→13:18)
[2016-09-28] MEDS: CEROVITE ADV FORMULA TAB PO SCH (08:14)
[2016-09-28] MEDS: LIDODERM (LIDOCAINE) PATCH 5% TD SCH (08:14)
[2016-09-28] MEDS: ENOXAPARIN 30 MG/0.3 ML SYR SQ SCH (08:15)
[2016-09-28] MEDS: HYDROCODONE/ACETAMOPHEN 5/325MG TAB PO PRN (10:35)
--- NOTE | 2016-09-28 12:11 | NEPHROLOGY CONSULTATION ---
DATE OF CONSULTATION: 09/28/2016 ATTENDING OF RECORD: Dr. Baez. REASON FOR CONSULTATION: Hyponatremia. HISTORY OF PRESENT ILLNESS: This is a 70-year-old female who suffers from chronic pain, specifically back pain and hip pain, who came in with worsening left hip pain. The patient is being evaluated by orthopedics. There was an attempt to drain the left hip for possible signs of infection; however, was unable to do so. The patient is currently getting an echo looking at the heart for signs of infection. Blood cultures are positive for Staph aureus. Urine culture is positive for gram negative bacilli. The patient is currently on vancomycin for her bacteremia. The patient does have elevated white count of 20,000, which has improved to 16,000. Unclear of the source for the bacteremia at this time, although thought possibly from the hip; however, the joint attempted aspiration on the 3rd was unsuccessful with no joint fluid being able to be aspirated. So, the patient currently has 5/10 pain in her left hip at rest. She is up to 10/10 when she attempts to walk. The patient is very frustrated with her pain. In terms of her low sodiums, the patient says that she was told that she had a low sodium about a year ago, although is unaware of the actual sodium number and was instructed to eat more salty pretzels. The patient has been dealing with hypertension for several years and was on hydrochlorothiazide, which may contribute to hyponatremia. The patient also has had a poor appetite given her significant pain issues, although her weight has been stable. She admits that she has not been eating as well she used to. Her sodium level was 120 on admission on the 2nd and improved to 124 about 24 hours later and is up to 126 this morning. The patient is currently on salt tablets 1 gram p.o. b.i.d. and is also on a low rate of IV fluids at 50 mL an hour. 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 REVIEW OF SYSTEMS: No fevers or chills. No headaches. No blurry vision. No chest pain. No shortness of breath. No nausea or vomiting. Does have some constipation. Has chronic pain in the back and the hip and is quite frustrated. Difficulty walking, but no itching or rash. All other review of systems otherwise negative. PAST MEDICAL HISTORY: Hypertension, previous tobacco use quit in 2011, chronic back pain, and the patient says that she has had hyponatremia for at least a year. PAST SURGICAL HISTORY: Hernia surgery. FAMILY HISTORY: No renal disease in family. SOCIAL HISTORY: Quit smoking in 2011. No drugs. Drinks about 6 alcoholic drinks a week. 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 The patient lives with daughter. CURRENT MEDICATIONS: Lidoderm patch daily, Colace 100 mg daily, Neurontin 300 mg at night, salt tablets 1 gram p.o. b.i.d., vancomycin IV q. 18 hours, Lovenox 30 subQ q. 24 hours, multivitamin daily, and lisinopril 20 mg daily. PHYSICAL EXAMINATION: VITAL SIGNS: Temperature 37.3, pulse 114, respiratory rate is 20, blood pressure 114/69, and satting 94% on room air. GENERAL: Awake, alert, and oriented x3. EYES: No scleral icterus. ENT: Moist mucous membranes. NECK: Supple. PULMONARY: Clear to auscultation. CARDIAC: Tachy. ABDOMEN: Bowel sounds positive. Soft and nontender. EXTREMITIES: Tenderness in the left hip. No significant clubbing, cyanosis or edema. NEUROLOGICALLY: Nonfocal. DERMATOLOGIC: No rash or ulcers noted. LABORATORY DATA: Sodium level was 126, potassium 3.6, chloride is 94, bicarbonate is 23, BUN 20, and creatinine 0.97. Serum osmolality is low at 257. Calcium is 9. White count 16, H&H 10 and 29, and platelet count 151. Sed rate 49. CRP is 33. Urine osmolality is 418. Lyme negative. ASSESSMENT AND PLAN: Hyponatremia. The patient appears to have chronic hyponatremia likely from chronic pain plus or minus hydrochlorothiazide. Hydrochlorothiazide has been stopped. Currently now is on salt tablets 1 gram p.o. b.i.d. Sodium levels have improved nicely from 120 up to 126. I would like to recheck sodium levels again this afternoon and recheck another urine osmolality today. TSH levels were done and were normal at 2.29. The patient has hypoosmolar hyponatremia and appears to be euvolemic. 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 For now, we will stop the IV fluids, recheck the sodium level this afternoon. Place the patient on a 1500-mL fluid restriction and attempt to bring up the sodium levels up to the 130s hopefully by Saturday night. I appreciate the consultation. PANCHO
[2016-09-28] MEDS: CEFTRIAXONE SOD INJ 1 GM in DEXTROSE 5% ADD-VANTAGE 50ML 50 ML IV SCH (13:16)
[2016-09-28] MEDS: DOCUSATE SODIUM 100 MG CAP PO SCH (13:17)
--- NOTE | 2016-09-28 13:20 | ECHOCARDIOGRAM REPORT ---
*NOTICE TO RECEIVING [employer] This information is strictly Confidential and protected under [place] law. [place] law prohibits you from making any further disclosure of this information unless further disclosure is expressly permitted by the written consent of the person to whom it pertains or is authorized by law. A general authorization for the release of medical or other information is not sufficient for this purpose. Hospital accepts no responsibility if the information is made available to any other person, INCLUDING THE PATIENT. Interpretation Summary * Name: ELLY BLEDSOE Study Date: 09/28/2016 10:37 AM BP: 114/69 mmHg * Patient Location: .MS2W\S\W250\S\2 HR: 114 * : 1945 (M/d/yyyy) Gender: Female Height: 63 in * Age: 70 yrs Ethnicity: [place] Weight: 150 lb * Ordering Physician: Julien Baez * Referring Physician: Self, Referred * Performed By: Shannon Osborne RDCS * * Reason For Study: ARIELLE * BSA: 1.7 m2 * -- Conclusions -- * Normal LV chamber size and wall thickness. * Normal LV systolic function, EF 60-65%. * No segmental left ventricular wall motion abnormalities are noted. * Grade I diastolic dysfunction. * Trace aortic regurgitation. * No valvular lesions identified within the scope of this imaging modality. Procedure Details * A complete two-dimensional transthoracic echocardiogram was performed (2D, M-mode, Doppler and color flow Doppler). Left Ventricle * The left ventricle is normal in size. * There is normal left ventricular wall thickness. * Ejection Fraction = 60-65%. * Left ventricular systolic function is normal. * No segmental left ventricular wall motion abnormalities are noted. * The left ventricular wall motion is normal. Right Ventricle * The right ventricular cavity size is normal (basal dimension <4.2 cm in right ventricular apical 4-chamber view). * The right ventricular systolic function is normal as assessed by tricuspid annular plane systolic excursion (TAPSE) (normal >1.5 cm). Atria * The left atrial size is normal. * Right atrial size is normal. * No ASD detected; PFO is not assessed. Mitral Valve * The mitral valve is normal in structure and function. Tricuspid Valve * The tricuspid valve is normal in structure and function. Aortic Valve * The aortic valve is not well visualized. * No hemodynamically significant valvular aortic stenosis. * Trace aortic regurgitation. Pulmonic Valve * The pulmonary valve is not well seen, but the Doppler examination is normal without significant regurgitation or stenosis. Great Vessels * The aortic root is normal size. Pericardium/Pleural * There is no pericardial effusion. Left Ventricular Diastolic Function * Grade I diastolic dysfunction, (abnormal relaxation pattern). MMode 2D Measurements and Calculations IVSd 1.7 cm IVSs 1.7 cm LVIDd 3.5 cm LVIDs 2.4 cm LVPWd 0.98 cm LVPWs 1.6 cm IVS/LVPW 1.8 FS 30.6 % EDV(Teich) 51.8 ml ESV(Teich) 21.2 ml EF(Teich) 59.1 % EDV(cubed) 43.8 ml ESV(cubed) 14.7 ml EF(cubed) 66.5 % % IVS thick -4.53 % % LVPW thick 68.7 % LV mass(C)d 166.9 grams LV mass(C)dI 97.5 grams/m\S\2 LV mass(C)s 147.4 grams LV mass(C)sI 86.2 grams/m\S\2 SV(Teich) 30.6 ml SI(Teich) 17.9 ml/m\S\2 SV(cubed) 29.2 ml SI(cubed) 17.0 ml/m\S\2 Ao root diam 3.8 cm Ao root area 11.3 cm\S\2 LA dimension 3.9 cm LA/Ao 1.0 LVAd ap4 26.4 cm\S\2 LVLd ap4 8.2 cm EDV(MOD-sp4) 68.9 ml EDV(sp4-el) 72.0 ml LVAs ap4 15.7 cm\S\2 LVLs ap4 6.7 cm ESV(MOD-sp4) 29.8 ml ESV(sp4-el) 31.3 ml EF(MOD-sp4) 56.8 % EF(sp4-el) 56.5 % LVAd ap2 31.3 cm\S\2 LVLd ap2 8.9 cm EDV(MOD-sp2) 91.2 ml EDV(sp2-el) 93.8 ml LVAs ap2 17.3 cm\S\2 LVLs ap2 7.0 cm ESV(MOD-sp2) 35.6 ml ESV(sp2-el) 36.1 ml EF(MOD-sp2) 61.0 % EF(sp2-el) 61.5 % LVLd %diff 7.9 % EDV(MOD-bp) 80.5 ml LVLs %diff 4.3 % ESV(MOD-bp) 32.0 ml EF(MOD-bp) 60.2 % SV(MOD-sp4) 39.1 ml SI(MOD-sp4) 22.9 ml/m\S\2 SV(MOD-sp2) 55.6 ml SI(MOD-sp2) 32.5 ml/m\S\2 SV(MOD-bp) 48.5 ml SI(MOD-bp) 28.3 ml/m\S\2 SV(sp4-el) 40.7 ml SI(sp4-el) 23.8 ml/m\S\2 SV(sp2-el) 57.7 ml SI(sp2-el) 33.7 ml/m\S\2 Doppler Measurements and Calculations Ao V2 max 115.8 cm/sec Ao max PG 5.4 mmHg Ao max PG (full) -0.71 mmHg LV V1 max PG 6.1 mmHg LV V1 max 123.2 cm/sec TR max segundo 231.7 cm/sec
--- NOTE | 2016-09-28 14:13 | Orthopedic Progress Note ---
Orthopedic Progress Note Date of Service Sep 28, 2016. Objective calves soft nontender, N/V intact continues to have pain with rotation of hip but much improved from yesterday, no erythema, no induration Date Time Temp Pulse Resp B/P (MAP) Pulse Ox O2 Delivery O2 Flow Rate FiO2 09/28/16 08:00 Room Air 09/28/16 07:12 37.3 114 20 114/69 (84) 94 Room Air 09/28/16 00:00 99 Room Air 09/27/16 22:39 36.9 107 18 114/59 (77) 93 Room Air 09/27/16 16:00 99 Room Air 09/27/16 14:51 36.6 103 18 128/73 (91) 99 Room Air Laboratory Results 24 Hours: Test 09/28/16 06:19 White Blood Count 16.10 K/uL Red Blood Count 3.29 M/uL Hemoglobin 10.0 g/dL Hematocrit 28.9 % Mean Corpuscular Volume 87.8 fL Mean Corpuscular Hemoglobin 30.4 pg Mean Corpuscular Hemoglobin Concent 34.6 g/dl Platelet Count 151 K/uL Mean Platelet Volume 8.5 fL Neutrophils (%) (Auto) 91.2 % Lymphocytes (%) (Auto) 2.4 % Monocytes (%) (Auto) 5.9 % Eosinophils (%) (Auto) 0.0 % Basophils (%) (Auto) 0.1 % Neutrophils # (Auto) 14.70 K/uL Lymphocytes # (Auto) 0.38 K/uL Monocytes # (Auto) 0.95 K/uL Eosinophils # (Auto) 0.00 K/uL Basophils # (Auto) 0.01 K/uL Assessment & Plan Assessment: L hip pain and 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 Joint entry confirmed with radio opaque fluid. Very unlikely that there is septic arthritis with a dry tap but not impossible. Her pain is much improved with the toradol but significant when it wears off Blood cx's growing staph, urine has e. coli WBC down to 16 Will continue to observe for now. Patient might benefit from an intra- articular steroid injection at some point but as there is still concern/ question for source of infection, would not recommend that currently. (1) Left hip pain (2) Effusion, left hip
--- NOTE | 2016-09-28 14:17 | Progress Note ---
Progress Note Date of Service Sep 28, 2016. Progress Note ID Consult Dictated #[id number] A/P: 1.S.aureus Septicemia - ? seeding of hip 2. GNR uti 3. Leukocytosis -continue broad spectrum abx, follow cultures -Repeat blood cultures -will follow, thank you
--- NOTE | 2016-09-28 14:37 | INFECT. DISEASE CONSULTATION ---
DATE OF CONSULTATION: 09/28/2016 DATE OF CONSULTATION: 09/28/2016 REQUESTING PHYSICIAN: Dr. Will. HISTORY OF PRESENT ILLNESS: This is a 70-year-old female who was admitted after she had sudden onset of head pain on the left side, which began on Saturday. She denies any falls or trauma to this area. She does have a history of chronic lumbar pain; however, this was worse and she was unable to weightbear. She did have some chills associated with this but did not take her fever as she did not feel feverish at home. She has had intermittent fevers since admission with a T-max of 37.6 in the Emergency Room. She currently is afebrile. She was found to have a leukocytosis of 20.8 in the ER which is improved to 16 today. Her sed rate is elevated and her CRP is 33. She did have a urinalysis which showed greater than 30 WBCs and 4+ bacteria; however, she denies any symptoms of frequency, urgency, dysuria or hematuria. Her urine culture is growing gram negative sepideh. Initial blood cultures were done on the in the Emergency Room and are growing Staph aureus in 2/2 sets. Repeat cultures are pending. She did have an echocardiogram today which was negative for vegetation. She did have a CAT scan which showed avascular necrosis of the hip without any significant fluid. An aspiration was attempted last night, the results of this are pending. A Lyme screen was negative. She is also being followed by orthopedics. Her final sensitivities have not returned on the Staph aureus. She is on Rocephin and vancomycin and appears to be tolerating her antibiotics well. She is currently afebrile. She is out of bed to chair. Her only complaint is of pain in her left hip. She denies any nausea, vomiting or diarrhea. She has no cough, chest pain, shortness of breath or wheezing. She did have a scrape on her left elbow some weeks ago, which has resolved completely, but she denies any purulent drainage from this area. She also had a tooth removed on July 29 and she was told by the dentist there was some pus that was identified but this was not treated with antibiotics. She has no pain in her mouth. All remaining review of systems are reviewed and are unremarkable. PAST MEDICAL HISTORY: Hypertension, low back pain on narcotic therapy, hyponatremia, anemia, sciatica. PAST SURGICAL HISTORY: Significant for hernia repair and injections into the back for chronic pain. ALLERGIES: SHE IS ALLERGIC TO ADHESIVE TAPE, LATEX, OXYCODONE. FAMILY HISTORY: Noncontributory. SOCIAL HISTORY: Significant for history of tobacco use. She drinks occasionally. 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 She lives here with family. She denies any recent sick contacts or travel. CURRENT MEDICATIONS: Include Rocephin, Lidoderm patch, Colace, Pepcid, Neurontin, travoprost, morphine, vancomycin, Lovenox, Neurontin, multivitamins, Zestril, Ativan, Tylenol, Toradol, Advil, Zofran, Ultram, Percocet. PHYSICAL EXAMINATION: VITAL SIGNS: She is afebrile, pulse is 114, respiratory rate is 20, blood pressure is 114/69 and oxygen saturation is 94-99% on room air. GENERAL: She is awake, alert and oriented x3. She is in no acute distress. HEAD, EYES, EARS, NOSE, AND THROAT: Mucous membranes are moist. Extraocular muscles are intact. HEART: Regular. LUNGS: Clear bilaterally. ABDOMEN: Soft, nontender, nondistended. EXTREMITIES: There is no lower extremity edema bilaterally. SKIN: Without rash. Examination of the left elbow reveals a small superficial abrasion which is healing. There is no warmth, erythema, tenderness or induration associated with this. There is no pain to palpation. LABORATORY STUDIES: Lyme titer is negative. A CBC today reveals a white blood cell count of 16.1, hemoglobin 10, hematocrit 28.9 and platelets are 151. Chemistry panel reveals a sodium of 126, potassium 3.6, chloride 94, bicarbonate 23, BUN 20, creatinine 0.9, glucose is 90. Sed rate is 49. CRP is 33. Urinalysis in the ER was remarkable for greater than 30 WBCs and 4+ bacteria. Synovial fluid is pending. Blood cultures from the ER are growing Staph aureus in 2/2 sets. Urine culture on the 2nd and again on the 3rd has gram negative sepideh which is yet to be identified. A left hip fluid culture is pending. IMAGING: As reviewed previously. ASSESSMENT AND PLAN: 1. Staph aureus septicemia with questionable seeding of the head. 2. Gram negative rods in the urine. The patient does admit to some incontinence of stool secondary to pain at home and believes that the culture is positive secondary to this. She is currently asymptomatic. I do agree with maintaining her on broad spectrum antibiotics. Repeat blood culture should be obtained and will be ordered at this time. Echocardiogram was negative. We will follow along with you. Thank you for this consultation.
[2016-09-28 14:45] VITALS: BP 108/73; PULSE 99; TEMP 36.6; O2SAT 98
--- NOTE | 2016-09-28 15:10 | Pain Management Consultation ---
Pain Management Consultation Date of Consultation Sep 28, 2016. Reason for Consultation Left hip pain Pain Location 1 - History 70-year-old female well-known to the [facility] pain management office with history of severe scoliosis, lumbar spondylosis, lumbar radiculitis, SI joint and facet genic pain of her lumbar spine. She is previously had left L5-S1 transforaminal epidural steroid injections most recently performed on 08/08/2016 for her lumbar radiculitis with 80% reduction in her overall pain lasting approximately 2 months. She is typically maintained on when necessary tramadol and gabapentin with good efficacy. She reports that she was admitted the [facility] with left-sided hip pain. She reports that this pain is significantly different than her typical lumbar radicular pain and is solely with in her left hip. She reports that the pain ranges between 7 and 10 out of 10 characterizes a pressure and cramping sensation. She denies any bowel or bladder incontinence subcutaneous anesthesia motor weakness foot drop or any trauma to the area. She denies any distal radicular symptoms past her left intra-articular hip joint. She admits to fever and chills recently. She was seen by orthopedics during this admission for possible septic arthritis however no fluid is able to be aspirated from a left hip intra-articular aspiration. She is been seen by infectious disease and is currently on broad- spectrum antibiotics for UTI and staph aureus septicemia. Past Medical/Surgical History (1) UTI (urinary tract infection) (2) Hyponatremia (3) Left hip pain (4) Abnormal white blood cell count (5) Effusion, left hip (6) Sepsis (7) Hypertension (8) Chronic low back pain Family History No pertinent family history Family Hx Review: history personally reviewed by me Social / Work History Drug Use: none Marital Status: single Occupation: retired Allergies Coded Allergies: Latex1 -Allergic Contact Dermititis (Verified Allergy, Severe, RESPIRATORY DISTRESS, 09/26/16) Brimonidine (Verified Allergy, Intermediate, OTHER-SEE COMMENT, 09/26/16) Toxic conjunctivitis Nickel (Verified Allergy, Unknown, RASH, 09/26/16) Oxycodone (Verified Allergy, Unknown, GI SYMPTOMS, 09/26/16) PT STATES "CAN TAKE TYENOL W/CODIENE WITH OUT ANY DIFFICULTY". Diphenhydramine (Verified Adverse Reaction, Severe, DELIRIUM, 09/27/16) as per patient opposite effect Medications Current Inpatient Medications Medications (Trade) Dose Ordered Sig/Viviane Route Start Time Stop Time Status Last Admin Dose Admin Enoxaparin Sodium (Lovenox Inj) 30 mg Q24H SQ 09/27/16 09:00 10/27/16 08:59 09/28/16 08:15 30 MG Acetaminophen (Tylenol Tab) 650 mg Q4H PRN PO 09/27/16 00:30 10/27/16 00:29 Ketorolac Tromethamine (Toradol Inj) 15 mg Q6H PRN IV. 09/27/16 00:30 10/02/16 00:29 09/28/16 12:03 15 MG Ibuprofen (Advil Tab) 400 mg Q6H PRN PO 09/27/16 00:30 10/27/16 00:29 Lidocaine (Lidoderm Patch 5%) 1 patch QAM TD 09/28/16 09:00 10/28/16 08:59 Vancomycin HCl (Consult) 1 ea UD PRN N/A 09/27/16 01:00 10/27/16 00:59 Ondansetron HCl (Zofran Inj) 4 mg Q6H PRN IV 09/27/16 00:30 10/27/16 00:29 09/27/16 20:45 4 MG Lorazepam (Ativan Inj) 0.5 mg Q4H PRN IV 09/27/16 00:30 10/27/16 00:29 Miscellaneous (Remove Lidoderm Patch) 1 ea DAILY@21 N/A 09/27/16 14:00 10/27/16 13:59 09/27/16 20:53 1 EA Gabapentin (Neurontin Cap) 300 mg HS PO 09/27/16 21:00 10/27/16 20:59 09/27/16 20:47 300 MG Multivitamins/ Minerals (Multivitamin W/ Minerals Tab) 1 tab DAILY PO 09/27/16 09:00 10/27/16 08:59 09/28/16 08:14 1 TAB Tramadol HCl (Ultram Tab) pain not relieved by ibupropen/tylenol Q6H PRN PO 09/27/16 00:30 10/27/16 00:29 09/28/16 03:39 50 MG Travoprost (Travatan Z) 1 drops HS OPB 09/27/16 21:00 10/27/16 20:59 09/27/16 20:46 1 DROPS Docusate Sodium (coLACE CAP) 100 mg DAILY PO 09/28/16 09:00 10/28/16 08:59 09/28/16 13:17 100 MG Lisinopril (Zestril Tab) 20 mg QAM PO 09/27/16 09:00 10/27/16 08:59 09/28/16 08:12 20 MG Lorazepam 0.5 mg/ Syringe 1 ml @ 1 mls/min Q4H PRN IV 09/27/16 01:15 10/27/16 01:14 Vancomycin HCl 1050 mg/Sodium Chloride 271 ml @ 125 mls/hr Q18H IV 09/27/16 14:00 10/06/16 22:59 09/28/16 08:10 125 MLS/HR Morphine Sulfate (MoRPHine SULFATE INJ) 4 mg Q4HWA PRN IV 09/27/16 15:45 10/11/16 15:44 09/28/16 08:26 4 MG Sodium Chloride (Sodium Chloride Tab) 1 gm BID PO 09/27/16 21:00 10/27/16 20:59 09/28/16 08:12 1 GM Famotidine (Pepcid Tab) 20 mg DAILY PRN PO 09/27/16 22:45 10/27/16 22:44 Ceftriaxone Sodium 1 gm/ Dextrose 50 ml @ 100 mls/hr Q24H IV 09/28/16 13:00 10/03/16 11:44 09/28/16 13:16 100 MLS/HR Gabapentin (Neurontin Cap) 300 mg BID@0900,1400 PO 09/29/16 09:00 10/27/16 08:59 UNV Nortriptyline HCl (Pamelor Cap) 25 mg HS PO 09/28/16 21:00 10/28/16 20:59 UNV Hydromorphone HCl (Dilaudid Tab) 2 mg Q6H PRN PO 09/28/16 15:00 10/12/16 14:59 UNV Review of Systems 10 point review of systems was otherwise negative aside from HPI Physical Exam Height & Weight: Height 5 feet, 3.00 inches. Weight 69.700 (Kilograms) 153 (Pounds) Last Vital Signs Documentation Date Time Temp Pulse Resp B/P (MAP) Pulse Ox O2 Delivery O2 Flow Rate FiO2 09/28/16 14:45 36.6 99 20 108/73 (85) 98 09/28/16 08:00 Room Air Exam: She appears her stated age of [age] years old is awake alert noted 3 appearing in no acute distress with appropriate speech and thought processes and clear sensorium. She is tearful on examination throughout parts of the history and physical HEENT pupils equally round and react to light pupils are slightly constricted. Neck is supple CV regular rate and rhythm Lungs no audible wheezes or rhonchi Skin warm and dry to touch Left hip she is tender over the left hip girdle predominantly over the femoral head She has grossly 5 out of 5 strength in all extremities equal throughout she resides in a hospital bedside chair throughout the course of the examination and gait was not observed Cranial nerves are grossly intact Laboratory Laboratory Review: results personally reviewed by me Laboratory Results (Last CBC): 09/28/16 06:19 Red Blood Count 3.29 L, Mean Corpuscular Volume 87.8, Mean Corpuscular Hemoglobin 30.4, Mean Corpuscular Hemoglobin Concent 34.6, Mean Platelet Volume 8.5, Neutrophils (%) (Auto) 91.2, Lymphocytes (%) (Auto) 2.4, Monocytes (%) ( Auto) 5.9, Eosinophils (%) (Auto) 0.0, Basophils (%) (Auto) 0.1, Neutrophils # ( Auto) 14.70 H, Lymphocytes # (Auto) 0.38 L, Monocytes # (Auto) 0.95 H, Eosinophils # (Auto) 0.00, Basophils # (Auto) 0.[address]: reports reviewed CT Findings Patient: ELLY BLEDSOE Address1: [address] Rec: [id number] Address2: Acct ID: [id number] [facility] Zip: [place] [address] Date: 1945 Sex: F Room/Bed: W250-2 Ref Phy: Jeremiah Alvarado M.D. SC: YAIR Att Phy: Julien Baez M.D. Report #: [id number] Kandy Phy: Jeremiah Alvarado M.D. Test: APWO Admit Phy: Julien Baez M.D. Supervisor Coil Winding: LIS Interpreting Phy: Trip Leone M.D. Diagnosis: SEPSIS Ordering Phy: Khai Saldaña D.O. Service Date: 09/26/16 Admit Date: 09/27/1707/03/17 MNE: [id number] CONF: DICTATED BY: Trip Leone M.D.]] CC: Julien Baez M.D. Elias, Jeffrey R., Jeremiah Ramos M.D. Endcc: [~ rep ct add3]] ADDENDUM Comparison to a routine pelvic series dated 04/29/2016 demonstrates that the changes of the left hip potentially relate to the patient's long-standing avascular process. It appears to be unchanged compared to the prior study. Electronically signed by: Trip Leone M.D. 09/27/2016 4:42 PM Dictated Date/Time: 09/27/2016 4:40 PM ORIGINAL REPORT ABD/PELVIS NO IV OR ORAL CONT CT DOSE: 339.07 mGy.cm HISTORY: Pain left flank pain TECHNIQUE: Multiaxial CT images of the abdomen and pelvis were performed without contrast. A dose lowering technique was utilized adhering to the principles of ALARA. COMPARISON STUDY: None. FINDINGS: Lung bases are clear. There is anterior diaphragmatic hernia containing nonobstructive loops of bowel. This has been present previously. Liver is unremarkable as is the spleen. Kidneys negative for necrosis. There is chronic perinephric infiltrative change. Bowel pattern overall is nonobstructive. There is a small anterior periumbilical hernia possibly with a small nonobstructive localized adhesion area There are findings of chronic sigmoid diverticulosis. No evidence for acute diverticulitis. Considerable degenerative change of the osseous structures throughout. Severe degenerative change left hip with extensive subchondral cyst formation. Complex left hip joint effusion. Moderate degenerative change right hip. No significant right-sided effusion. IMPRESSION: 1. Severe degenerative change left hip with rather significant joint effusion. 2. Subchondral cystic formation left femoral head and to lesser extent left acetabulum. 3. All of the findings are potentially degenerative,, although I cannot entirely exclude an inflammatory component. 4. Chronic sigmoid diverticulosis. 5. Postoperative changes as noted. Radiology: reports reviewed Radiology Findings Patient: ELLY BLEDSOE Address[address] [facility] [facility] Rec: [id number] Address2: Acct ID: [id number] [facility] Zip: [place] [address] Date: 1945 Sex: F Room/Bed: [facility] Ref Phy: Jeremiah Alvarado M.D. SC: YAIR Att Phy: Julien Baez M.D. Report #: [id number] Kandy Phy: Jeremiah Alvarado M.D. Test: INJMJNT Admit Phy: Julien Baez M.D. Supervisor Coil Winding: YUDI Interpreting Phy: Reggie Cota M.D. Diagnosis: SEPSIS Ordering Phy: Zbigniew Stanford PAC Service Date: 09/27/16 Admit Date: 09/27/1707/03/17 MNE: [id number] CONF: DICTATED BY: Reggie Cota M.D.]] CC: Zbigniew Stanford P.AJulien Lepe M.D. Pilgram, Philip A., M.D. Endcc: [~ rep ct add3]] FLUOROSCOPICALLY GUIDED LEFT HIP ASPIRATION CLINICAL HISTORY: Left hip pain. Elevated white count. Possible septic joint. COMPARISON STUDY: CT scan dated September 26, 2016 FLUOROSCOPY TIME: 60 seconds. NUMBER OF FLUOROSCOPIC IMAGES: 4 FINDINGS: A timeout was performed. The risks the procedure were explained the patient informed consent was obtained. The patient was prepped and draped in sterile fashion. The skin was anesthetized 1% lidocaine. A 20-gauge spinal needle was introduced the joint. No fluid could be aspirated. Saline was instilled. No fluid was withdrawn. The needle was repositioned several times. No fluid could be obtained. Optiray 300 was instilled through the needle documenting intra-articular location of the needle. IMPRESSION: No joint fluid could be aspirated, despite intra-articular location of the needle. Past Records Previous Records: personally reviewed by me Prior [facility] pain management notes were reviewed [place] Drug Monitoring Program Search Results: patient reviewed within database, no issues identified Assessment 1. Left hip avascular necrosis with possible septic joint on broad-spectrum antibiotics 2. Gram-negative septicemia 3. Urinary Tract infection 4. History of left lumbar radiculitis 5. History of lumbar spondylosis Recommendations 1. The patient is not a candidate for interventional pain therapy at this time due to infection. She may be a candidate for repeat epidural steroid injection in the future should she have recurrence of her lumbar radicular pain however I suspect that her pain is more secondary to intra-articular pathology of her left hip rather than from her lumbar spondylosis and lumbar radiculitis at this time. 2. Recommend increasing her gabapentin to 300 mg by mouth 3 times a day and initiating nortriptyline 25 mg by mouth daily at bedtime to further diminish pain burden. She was counseled on the risks and benefits of these medications as well as side effects and orders were written. 3. We'll discontinue [place] and initiate hydromorphone 2 mg by mouth every 6 when necessary pain. Would plan to decrease her narcotics back to hydrocodone prior to discharge. 4. Continue IV Toradol and morphine as previous for backup pain relief. 5. We'll be happy to see her back as an outpatient at the [facility] pain management office upon discharge. Thank you for consultation please call with any questions
[2016-09-28 16:00] VITALS: O2SAT 98
--- NOTE | 2016-09-28 16:05 | Orthopedic Progress Note ---
Orthopedic Progress Note Date of Service Sep 28, 2016. Subjective Additional Notes: Pt lying in bed on her right side. States that she still has moderate pain in the left hip. Aspiration attempted by Radiology last night that resulted in no obvious fluid extracted. Sterile saline was injected with no return. Optiray was injected to ensure that the joint had been entered and it was. No specimen sent from my understanding although there are pending cultures and cell count. Pt discouraged. Discussed that no obvious treatment for her AVN such as JOSEFA can be done until her infection is cleared. Objective calves soft nontender, N/V intact, A&O x3, toes mobile Continued minimal ROM of the left hip which causes pain to radiate down to the left knee. Date Time Temp Pulse Resp B/P (MAP) Pulse Ox O2 Delivery O2 Flow Rate FiO2 09/28/16 14:45 36.6 99 20 108/73 (85) 98 09/28/16 08:00 Room Air 09/28/16 07:12 37.3 114 20 114/69 (84) 94 Room Air 09/28/16 00:00 99 Room Air 09/27/16 22:39 36.9 107 18 114/59 (77) 93 Room Air 09/27/16 16:00 99 Room Air Laboratory Results 24 Hours: Test 09/28/16 06:19 White Blood Count 16.10 K/uL Red Blood Count 3.29 M/uL Hemoglobin 10.0 g/dL Hematocrit 28.9 % Mean Corpuscular Volume 87.8 fL Mean Corpuscular Hemoglobin 30.4 pg Mean Corpuscular Hemoglobin Concent 34.6 g/dl Platelet Count 151 K/uL Mean Platelet Volume 8.5 fL Neutrophils (%) (Auto) 91.2 % Lymphocytes (%) (Auto) 2.4 % Monocytes (%) (Auto) 5.9 % Eosinophils (%) (Auto) 0.0 % Basophils (%) (Auto) 0.1 % Neutrophils # (Auto) 14.70 K/uL Lymphocytes # (Auto) 0.38 K/uL Monocytes # (Auto) 0.95 K/uL Eosinophils # (Auto) 0.00 K/uL Basophils # (Auto) 0.01 K/uL Assessment & Plan Assessment: L hip pain and chronic AVN of femoral head with reactive changes to the acetabulum. Plan: No fluid was able to be aspirated from hip. Joint entry confirmed with radio opaque fluid. Very unlikely that there is septic arthritis with a dry tap but not impossible. Her pain is much improved with the toradol but significant when it wears off Blood cx's growing staph, urine has e. coli WBC down to 16 Will continue to observe for now. Patient might benefit from an intra- articular steroid injection at some point but as there is still concern/ question for source of infection, would not recommend that currently. (1) Left hip pain (2) Effusion, left hip
[2016-09-28 19:14] LABS: BUN/CREATININE RATIO 15.7 (10-20); CALCIUM 9.5 mg/dl (8.5-10.1); CREATININE 1.4 mg/dl (0.60-1.20); POTASSIUM 3.8 mmol/L (3.5-5.1)
[2016-09-28] MEDS: TRAVOPROST Z 0.004% OPH SOLN 2.5 ML BTL OPB SCH (21:18)
[2016-09-28] MEDS: GABAPENTIN 300 MG CAP PO SCH (21:18)
[2016-09-28] MEDS: NORTRIPTYLINE HCL 25 MG CAP PO SCH (21:19)
[2016-09-28] MEDS: HYDROmorphone HCL 2 MG TAB PO PRN (21:19)
--- NOTE | 2016-09-28 22:39 | Progress Note ---
Medicine Progress Note Date & Time of Visit: Sep 28, 2016 at 18:26. Subjective 70 yo F presents with acute L hip septic arthritis, now with bacteremia and UTI -pain present in hip, somewhat better controlled -pt denies nausea and vomiting, no CP or SOB -denies fevers or chills. Objective Last 8 Hrs Date Time Temp Pulse Resp B/P (MAP) Pulse Ox O2 Delivery O2 Flow Rate FiO2 09/28/16 16:00 98 Room Air 09/28/16 14:45 36.6 99 20 108/73 (85) 98 Physical Exam: GEN: WNWD, in no acute distress, alert and appropriate but appears somewhat overmedicated. HEENT: NC/AT, PERRL, normal sclerae, MMM CARDIO: reg rate, S1/2 heard without m/g/r LUNGS: crackels heard at R base ABD: soft, non-tender, non-distended, no rebound or guarding, +BS-hypoactive. EXTREMITY: RP and DP palpable 2+ bilat, no LE swelling or edema, extremities are warm and well-perfused NEURO: CN 2-12 grossly intact MUSC: difficulty moving L leg in general, otherwise moves other extremities equally SKIN: warm and dry Laboratory Results: 09/28/16 06:19 Red Blood Count 3.29, Mean Corpuscular Volume 87.8, Mean Corpuscular Hemoglobin 30.4, Mean Corpuscular Hemoglobin Concent 34.6, Mean Platelet Volume 8.5, Neutrophils (%) (Auto) 91.2, Lymphocytes (%) (Auto) 2.4, Monocytes (%) (Auto) 5.9, Eosinophils (%) (Auto) 0.0, Basophils (%) (Auto) 0.1, Neutrophils # (Auto) 14.70, Lymphocytes # (Auto) 0.38, Monocytes # (Auto) 0.95, Eosinophils # (Auto) 0.00, Basophils # (Auto) 0.01 09/28/16 18:44 Test 09/26/16 20:15 09/26/16 23:19 09/26/16 23:20 09/26/16 23:30 Prothrombin Time 12.4 SECONDS (9.0-12.0) Prothromb Time International Ratio 1.2 (0.9-1.1) Activated Partial Thromboplast Time 34.4 SECONDS (21.0-31.0) Partial Thromboplastin Ratio 1.3 Total Bilirubin 0.7 mg/dl (0.2-1) Direct Bilirubin 0.2 mg/dl (0-0.2) Aspartate Amino Transf (AST/SGOT) 31 U/L (15-37) Alanine Aminotransferase (ALT/SGPT) 33 U/L (12-78) Alkaline Phosphatase 72 U/L (45-117) Total Protein 7.3 gm/dl (6.4-8.2) Albumin 3.8 gm/dl (3.4-5.0) Lipase 80 U/L (73-393) Thyroid Stimulating Hormone (TSH) 2.290 uIu/ml (0.300-4.500) Lyme Disease IgG Antibody NEG (NEG) Lyme Disease IgM Antibody NEG (NEG) Lactic Acid Level 1.4 mmol/L (0.4-2.0) Urine Color YELLOW Urine Appearance CLOUDY (CLEAR) Urine pH 5.5 (4.5-7.5) Urine Specific [place] 1.015 (1.000-1.030) Urine Protein NEG (NEG) Urine Glucose (UA) NEG (NEG) Urine Ketones TRACE (NEG) Urine Occult Blood TRACE (NEG) Urine Nitrite NEG (NEG) Urine Bilirubin NEG (NEG) Urine Urobilinogen NEG (NEG) Urine Leukocyte Esterase MODERATE (NEG) Urine WBC (Auto) >30 /hpf (0-5) Urine RBC (Auto) 0-4 /hpf (0-4) Urine Hyaline Casts (Auto) 5-10 /lpf (0-5) Urine Epithelial Cells (Auto) 5-10 /lpf (0-5) Urine Bacteria (Auto) 4+ (NEG) Urine Random Sodium 35 mEq/L Test 09/27/16 01:34 09/27/16 05:20 09/28/16 06:19 09/28/16 17:35 Ethyl Alcohol mg/dL < 3.0 mg/dl (0-3) Magnesium Level 2.1 mg/dl (1.8-2.4) White Blood Count 16.10 K/uL (4.8-10.8) Red Blood Count 3.29 M/uL (4.2-5.4) Hemoglobin 10.0 g/dL (12.0-16.0) Hematocrit 28.9 % (37-47) Mean Corpuscular Volume 87.8 fL (80-100) Mean Corpuscular Hemoglobin 30.4 pg (25-34) Mean Corpuscular Hemoglobin Concent 34.6 g/dl (32-36) Platelet Count 151 K/uL (130-400) Mean Platelet Volume 8.5 fL (7.4-10.4) Neutrophils (%) (Auto) 91.2 % Lymphocytes (%) (Auto) 2.4 % Monocytes (%) (Auto) 5.9 % Eosinophils (%) (Auto) 0.0 % Basophils (%) (Auto) 0.1 % Neutrophils # (Auto) 14.70 K/uL (1.4-6.5) Lymphocytes # (Auto) 0.38 K/uL (1.2-3.4) Monocytes # (Auto) 0.95 K/uL (0.11-0.59) Eosinophils # (Auto) 0.00 K/uL (0-0.5) Basophils # (Auto) 0.01 K/uL (0-0.2) RDW Standard Deviation 44.1 fL (36.4-46.3) RDW Coefficient of Variation 13.8 % (11.5-14.5) Immature Granulocyte % (Auto) 0.4 % Immature Granulocyte # (Auto) 0.06 K/uL (0.00-0.02) Dohle Bodies 1+ Erythrocyte Sedimentation Rate 49 mm/hr (0-21) Osmolality 257 mOsm/kg (280-300) C-Reactive Protein 33.10 mg/dl (0-0.29) Urine Osmolality 433 mOms/kg (500-800) Test 09/28/16 18:44 Anion Gap 9.0 mmol/L (3-11) Est Creatinine Clear Calc Drug Dose 35.5 ml/min Estimated GFR () 44.3 Estimated GFR (Non- 38.2 BUN/Creatinine Ratio 15.7 (10-20) Calcium Level 9.5 mg/dl (8.5-10.1) Date/Time Source Procedure Growth Status 09/28/16 15:51 Blood Blood Culture Pending Received 09/27/16 00:00 Nasal MRSA DNA Surveillance Screen - Final Specimen Negative for MRSA by DNA Probe Complete 09/27/16 03:30 Urine , Clean Catch Urine Culture - Preliminary Gram Negative Bacilli Resulted Last 24 Hours Test 09/28/16 06:19 09/28/16 17:35 09/28/16 18:00 White Blood Count 16.10 K/uL Red Blood Count 3.29 M/uL Hemoglobin 10.0 g/dL Hematocrit 28.9 % Mean Corpuscular Volume 87.8 fL Mean Corpuscular Hemoglobin 30.4 pg Mean Corpuscular Hemoglobin Concent 34.6 g/dl Platelet Count 151 K/uL Mean Platelet Volume 8.5 fL Neutrophils (%) (Auto) 91.2 % Lymphocytes (%) (Auto) 2.4 % Monocytes (%) (Auto) 5.9 % Eosinophils (%) (Auto) 0.0 % Basophils (%) (Auto) 0.1 % Neutrophils # (Auto) 14.70 K/uL Lymphocytes # (Auto) 0.38 K/uL Monocytes # (Auto) 0.95 K/uL Eosinophils # (Auto) 0.00 K/uL Basophils # (Auto) 0.01 K/uL RDW Standard Deviation 44.1 fL RDW Coefficient of Variation 13.8 % Immature Granulocyte % (Auto) 0.4 % Immature Granulocyte # (Auto) 0.06 K/uL Dohle Bodies 1+ Erythrocyte Sedimentation Rate 49 mm/hr Sodium Level 126 mmol/L Potassium Level 3.6 mmol/L Chloride Level 94 mmol/L Carbon Dioxide Level 23 mmol/L Anion Gap 9.0 mmol/L Blood Urea Nitrogen 20 mg/dl Creatinine 0.97 mg/dl Est Creatinine Clear Calc Drug Dose 51.2 ml/min Estimated GFR () 69.1 Estimated GFR (Non- 59.6 BUN/Creatinine Ratio 20.3 Random Glucose 90 mg/dl Osmolality 257 mOsm/kg Calcium Level 9.0 mg/dl C-Reactive Protein 33.10 mg/dl Urine Osmolality 433 mOms/kg Date/Time Source Procedure Growth Status 09/28/16 15:51 Blood Blood Culture Pending Received 09/28/16 15:46 Blood Blood Culture Pending Received Assessment & Plan 70 yo F presents with acute L hip septic arthritis, now with bacteremia and UTI 1. Sepsis 2/2 L hip septic arthritis-aspiration under fluoroscopy was unsuccessful. Per PM, pt is not a candidate for an injection in setting of acute infection. PO pain meds were adjusted for better relief. 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 Will have her followup as outpatient for this. Appreciate ID consult. Continuing on Vanc and Rocephin at this time. WBC decreased and patient is not toxic-appearing 2. GPC Bacteremia-cont Vanc, repeat BCx drawn today after 48 hours on Vanc and afebrile. TTE did not reveal any vegetations on valves. 3. Hyponatremia-per Nephro who is recommending fluid restriction to 1500mls, and continuation of salt tabs. 4. Chronic back pain-s/p epidural injection two months ago. cont tramadol PRN 5. Anemia-chronic, no indication for transfusion at this time. 6. HTN-BP controlled on lisinorpil. HCTZ was held 2/2 low Na. 7. GNB UTI-covering with Rocephin empirically pending culture results. 8. Leukocytosis-improved. DVT proph-Lovenox. Full Code Dispo-uncertain at this time. Feel will be here through the weekend. Amina Gr DO [facility] Hospitalist ADDENDUM: Noted creatinine rise to 1.4 on pm bloodwork. Holding ACEI and NSAIDs at this time. Na still 126. Repeat in am as above. Feel likely 2/2 excessive NSAID use to control pain. Consultants: ANKIT AGUILAR NEPHRO Current Inpatient Medications: Current Inpatient Medications Medications (Trade) Dose Ordered Sig/Viviane Route Start Time Stop Time Status Last Admin Dose Admin Enoxaparin Sodium (Lovenox Inj) 30 mg Q24H SQ 09/27/16 09:00 10/27/16 08:59 09/28/16 08:15 30 MG Acetaminophen (Tylenol Tab) 650 mg Q4H PRN PO 09/27/16 00:30 10/27/16 00:29 Ketorolac Tromethamine (Toradol Inj) 15 mg Q6H PRN IV. 09/27/16 00:30 10/02/16 00:29 09/28/16 12:03 15 MG Ibuprofen (Advil Tab) 400 mg Q6H PRN PO 09/27/16 00:30 10/27/16 00:29 Lidocaine (Lidoderm Patch 5%) 1 patch QAM TD 09/28/16 09:00 10/28/16 08:59 Vancomycin HCl (Consult) 1 ea UD PRN N/A 09/27/16 01:00 10/27/16 00:59 Ondansetron HCl (Zofran Inj) 4 mg Q6H PRN IV 09/27/16 00:30 10/27/16 00:29 09/27/16 20:45 4 MG Lorazepam (Ativan Inj) 0.5 mg Q4H PRN IV 09/27/16 00:30 10/27/16 00:29 Miscellaneous (Remove Lidoderm Patch) 1 ea DAILY@21 N/A 09/27/16 14:00 10/27/16 13:59 09/27/16 20:53 1 EA Gabapentin (Neurontin Cap) 300 mg HS PO 09/27/16 21:00 10/27/16 20:59 09/27/16 20:47 300 MG Multivitamins/ Minerals (Multivitamin W/ Minerals Tab) 1 tab DAILY PO 09/27/16 09:00 10/27/16 08:59 09/28/16 08:14 1 TAB Tramadol HCl (Ultram Tab) pain not relieved by ibupropen/tylenol Q6H PRN PO 09/27/16 00:30 10/27/16 00:29 09/28/16 03:39 50 MG Travoprost (Travatan Z) 1 drops HS OPB 09/27/16 21:00 10/27/16 20:59 09/27/16 20:46 1 DROPS Docusate Sodium (coLACE CAP) 100 mg DAILY PO 09/28/16 09:00 10/28/16 08:59 09/28/16 13:17 100 MG Lisinopril (Zestril Tab) 20 mg QAM PO 09/27/16 09:00 10/27/16 08:59 09/28/16 08:12 20 MG Lorazepam 0.5 mg/ Syringe 1 ml @ 1 mls/min Q4H PRN IV 09/27/16 01:15 10/27/16 01:14 Vancomycin HCl 1050 mg/Sodium Chloride 271 ml @ 125 mls/hr Q18H IV 09/27/16 14:00 10/06/16 22:59 09/28/16 08:10 125 MLS/HR Morphine Sulfate (MoRPHine SULFATE INJ) 4 mg Q4HWA PRN IV 09/27/16 15:45 10/11/16 15:44 09/28/16 15:42 4 MG Sodium Chloride (Sodium Chloride Tab) 1 gm BID PO 09/27/16 21:00 10/27/16 20:59 09/28/16 08:12 1 GM Famotidine (Pepcid Tab) 20 mg DAILY PRN PO 09/27/16 22:45 10/27/16 22:44 Ceftriaxone Sodium 1 gm/ Dextrose 50 ml @ 100 mls/hr Q24H IV 09/28/16 13:00 10/03/16 11:44 09/28/16 13:16 100 MLS/HR Gabapentin (Neurontin Cap) 300 mg BID@0900,1400 PO 09/29/16 09:00 10/27/16 08:59 Nortriptyline HCl (Pamelor Cap) 25 mg HS PO 09/28/16 21:00 10/28/16 20:59 Hydromorphone HCl (Dilaudid Tab) 2 mg Q6H PRN PO 09/28/16 15:00 10/12/16 14:59
[2016-09-29] VITALS (22 sets, daily range): BP systolic 89–130; BP diastolic 60–93; PULSE 86–142; TEMP 36.4–37.1; O2SAT 80–100
[2016-09-29] MEDS: MoRPHine SULFATE 4 MG/ML 1 ML CARP\\VIAL IV PRN ×3 (01:06→21:09)
[2016-09-29] MEDS ORDERED: VANCOMYCIN TROUGH SCH ×2 (01:30→19:30)
[2016-09-29] MEDS ORDERED: POTASSIUM CHLORIDE 10 MEQ TABCR PO STA (01:46)
[2016-09-29] MEDS: VANCOMYCIN INJ 1,050 MG in SODIUM CHLORIDE 0.9% 250ML 250 ML IV SCH ×2 (01:54→20:38)
[2016-09-29] MEDS ORDERED: SODIUM CHLORIDE 0.9% 250ML 250 ML IV ONE (02:00)
[2016-09-29 02:06] LABS: MAGNESIUM 1.8 mg/dl (1.8-2.4)
[2016-09-29] MEDS ORDERED: NSS + 20MEQ KCL 1000ML 1,000 ML IV ONE (02:30)
[2016-09-29] MEDS: HYDROmorphone HCL 2 MG TAB PO PRN ×2 (03:26→11:00)
[2016-09-29 07:13] LABS: BASO % 0.1 %; BASO ABS # 0.01 K/uL (0-0.2); COMPLETE YES; EOS % 0.2 %; HEMATOCRIT 30.9 % (37-47); IG% 0.4 %; LYMPH % 3.3 %; MEAN CORPUSCULAR HEMOGLOBIN 29.7 pg (25-34); MEAN CORPUSCULAR HGB CONC 33.3 g/dl (32-36); MEAN PLATELET VOLUME 9.4 fL (7.4-10.4); MONO % 6.4 %; NEUT % 89.6 %; PLATELET COUNT 204 K/uL (130-400); RED BLOOD COUNT 3.47 M/uL (4.2-5.4); WHITE BLOOD COUNT 14.99 K/uL (4.8-10.8)
[2016-09-29 07:40] LABS: CALCIUM 9.1 mg/dl (8.5-10.1); CREATININE 1.6 mg/dl (0.60-1.20); POTASSIUM 3.7 mmol/L (3.5-5.1)
[2016-09-29 07:48] LABS: C-REACTIVE PROTEIN 34.6 mg/dl (0-0.29)
[2016-09-29] MEDS ORDERED: DILTIAZEM HCL 5 MG/ML 5 ML VIAL IV ONE ×2 (08:20→08:45)
[2016-09-29] MEDS ORDERED: NURSING VERBAL MED ORDER ONE (08:45)
[2016-09-29] MEDS: GABAPENTIN 300 MG CAP PO SCH ×4 (08:47→21:01)
[2016-09-29] MEDS: DOCUSATE SODIUM 100 MG CAP PO SCH (08:47)
[2016-09-29] MEDS: SODIUM CHLORIDE 1 GM TAB PO SCH ×2 (08:47→21:00)
[2016-09-29] MEDS: CEROVITE ADV FORMULA TAB PO SCH (08:47)
[2016-09-29] MEDS: LIDODERM (LIDOCAINE) PATCH 5% TD SCH (08:48)
--- NOTE | 2016-09-29 09:14 | Progress Note ---
Medicine Progress Note Date & Time of Visit: Sep 29, 2016 at 08:46. Subjective 70 yo F presents with acute L hip septic arthritis, now with Staph aureus bacteremia and zee-sensitive Klebsiella UTI. No fevers or chills overnight but was stressed by the situation with nurses, flipped into afib with RVR. Initially was tachy into the 130s, and was thought to be dry. Given 1L IVF with improvement in HR to 90s. HR went back into 150s around 700am and EKG revealed afib with RVR, which is a new diagnosis for her. She was asymptomatic at the time. Transferred to telemetry and given Diltiazem 10mg IV bolus, then 15mg IV bolus with improvement in HR to the 110s. Crackles on lung exam this morning, CXR ordered after IVF given overnight. Previous TTE performed this admission revealsEF 60-65%, no wall motion abnormalities, no ASD and no valvular pathology or vegetation in setting of S aureus bacteremia. She has not had any chest pain, shortness of breath, fevers, chills, or UTI symptoms since admission. Objective Last 8 Hrs Date Time Temp Pulse Resp B/P (MAP) Pulse Ox O2 Delivery O2 Flow Rate FiO2 09/29/16 08:33 37.1 142 20 91 09/29/16 07:46 Room Air 09/29/16 07:11 37.1 139 20 125/69 (87) 91 09/29/16 02:21 36.4 92 18 108/62 (77) 100 Room Air 09/29/16 02:08 36.4 92 18 108/62 (77) 100 Room Air Physical Exam: GEN: WNWD, in no acute distress, alert and appropriate, not ill-appearing HEENT: NC/AT, normal sclerae, MMM CARDIO: tachy rate, irregular rhythm, S1/2 heard without m/g/r LUNGS: crackles heard at bases bilaterally, no wheezing or rales ABD: soft, non-tender, non-distended, no rebound or guarding, +BS-hypoactive. EXTREMITY: RP and DP palpable 2+ bilat, no LE swelling or edema, extremities are warm and well-perfused NEURO: CN 2-12 grossly intact MUSC: difficulty moving L leg in general, otherwise moves other extremities equally, unable to bear weight SKIN: warm and dry Laboratory Results: 09/29/16 06:33 Red Blood Count 3.47, Mean Corpuscular Volume 89.0, Mean Corpuscular Hemoglobin 29.7, Mean Corpuscular Hemoglobin Concent 33.3, Mean Platelet Volume 9.4, Neutrophils (%) (Auto) 89.6, Lymphocytes (%) (Auto) 3.3, Monocytes (%) (Auto) 6.4, Eosinophils (%) (Auto) 0.2, Basophils (%) (Auto) 0.1, Neutrophils # (Auto) 13.43, Lymphocytes # (Auto) 0.50, Monocytes # (Auto) 0.96, Eosinophils # (Auto) 0.03, Basophils # (Auto) 0.01 09/29/16 06:33 Test 09/26/16 20:15 09/26/16 23:19 09/26/16 23:20 09/26/16 23:30 Total Bilirubin 0.7 mg/dl (0.2-1) Direct Bilirubin 0.2 mg/dl (0-0.2) Aspartate Amino Transf (AST/SGOT) 31 U/L (15-37) Alanine Aminotransferase (ALT/SGPT) 33 U/L (12-78) Alkaline Phosphatase 72 U/L (45-117) Total Protein 7.3 gm/dl (6.4-8.2) Albumin 3.8 gm/dl (3.4-5.0) Lipase 80 U/L (73-393) Thyroid Stimulating Hormone (TSH) 2.290 uIu/ml (0.300-4.500) Lyme Disease IgG Antibody NEG (NEG) Lyme Disease IgM Antibody NEG (NEG) Lactic Acid Level 1.4 mmol/L (0.4-2.0) Urine Color YELLOW Urine Appearance CLOUDY (CLEAR) Urine pH 5.5 (4.5-7.5) Urine Specific [place] 1.015 (1.000-1.030) Urine Protein NEG (NEG) Urine Glucose (UA) NEG (NEG) Urine Ketones TRACE (NEG) Urine Occult Blood TRACE (NEG) Urine Nitrite NEG (NEG) Urine Bilirubin NEG (NEG) Urine Urobilinogen NEG (NEG) Urine Leukocyte Esterase MODERATE (NEG) Urine WBC (Auto) >30 /hpf (0-5) Urine RBC (Auto) 0-4 /hpf (0-4) Urine Hyaline Casts (Auto) 5-10 /lpf (0-5) Urine Epithelial Cells (Auto) 5-10 /lpf (0-5) Urine Bacteria (Auto) 4+ (NEG) Urine Random Sodium 35 mEq/L Test 09/27/16 01:34 09/28/16 06:19 09/28/16 17:35 09/28/16 18:44 Ethyl Alcohol mg/dL < 3.0 mg/dl (0-3) Dohle Bodies 1+ Osmolality 257 mOsm/kg (280-300) Urine Osmolality 433 mOms/kg (500-800) Magnesium Level 1.8 mg/dl (1.8-2.4) Test 09/29/16 01:08 09/29/16 06:33 09/29/16 09:02 Vancomycin Level Trough 16.9 mcg/ml (SEE COMMENT) White Blood Count 14.99 K/uL (4.8-10.8) Red Blood Count 3.47 M/uL (4.2-5.4) Hemoglobin 10.3 g/dL (12.0-16.0) Hematocrit 30.9 % (37-47) Mean Corpuscular Volume 89.0 fL (80-100) Mean Corpuscular Hemoglobin 29.7 pg (25-34) Mean Corpuscular Hemoglobin Concent 33.3 g/dl (32-36) Platelet Count 204 K/uL (130-400) Mean Platelet Volume 9.4 fL (7.4-10.4) Neutrophils (%) (Auto) 89.6 % Lymphocytes (%) (Auto) 3.3 % Monocytes (%) (Auto) 6.4 % Eosinophils (%) (Auto) 0.2 % Basophils (%) (Auto) 0.1 % Neutrophils # (Auto) 13.43 K/uL (1.4-6.5) Lymphocytes # (Auto) 0.50 K/uL (1.2-3.4) Monocytes # (Auto) 0.96 K/uL (0.11-0.59) Eosinophils # (Auto) 0.03 K/uL (0-0.5) Basophils # (Auto) 0.01 K/uL (0-0.2) RDW Standard Deviation 46.1 fL (36.4-46.3) RDW Coefficient of Variation 14.1 % (11.5-14.5) Immature Granulocyte % (Auto) 0.4 % Immature Granulocyte # (Auto) 0.06 K/uL (0.00-0.02) Erythrocyte Sedimentation Rate 63 mm/hr (0-21) Anion Gap 8.0 mmol/L (3-11) Est Creatinine Clear Calc Drug Dose 31.1 ml/min Estimated GFR () 37.7 Estimated GFR (Non- 32.5 BUN/Creatinine Ratio 16.0 (10-20) Calcium Level 9.1 mg/dl (8.5-10.1) C-Reactive Protein 34.60 mg/dl (0-0.29) Prothrombin Time 10.5 SECONDS (9.0-12.0) Prothromb Time International Ratio 1.0 (0.9-1.1) Activated Partial Thromboplast Time 35.1 SECONDS (21.0-31.0) Partial Thromboplastin Ratio 1.4 Date/Time Source Procedure Growth Status 09/28/16 15:51 Blood Blood Culture Pending Received 09/27/16 00:00 Nasal MRSA DNA Surveillance Screen - Final Specimen Negative for MRSA by DNA Probe Complete 09/27/16 03:30 Urine , Clean Catch Urine Culture - Final Klebsiella Pneumoniae Complete Last 24 Hours Test 09/28/16 17:35 09/28/16 18:44 09/29/16 01:08 09/29/16 06:33 Urine Osmolality 433 mOms/kg Sodium Level 126 mmol/L 127 mmol/L Potassium Level 3.8 mmol/L 3.7 mmol/L Chloride Level 93 mmol/L 96 mmol/L Carbon Dioxide Level 24 mmol/L 23 mmol/L Anion Gap 9.0 mmol/L 8.0 mmol/L Blood Urea Nitrogen 22 mg/dl 26 mg/dl Creatinine 1.40 mg/dl 1.60 mg/dl Est Creatinine Clear Calc Drug Dose 35.5 ml/min 31.1 ml/min Estimated GFR () 44.3 37.7 Estimated GFR (Non- 38.2 32.5 BUN/Creatinine Ratio 15.7 16.0 Random Glucose 91 mg/dl 93 mg/dl Calcium Level 9.5 mg/dl 9.1 mg/dl Magnesium Level 1.8 mg/dl Vancomycin Level Trough 16.9 mcg/ml White Blood Count 14.99 K/uL Red Blood Count 3.47 M/uL Hemoglobin 10.3 g/dL Hematocrit 30.9 % Mean Corpuscular Volume 89.0 fL Mean Corpuscular Hemoglobin 29.7 pg Mean Corpuscular Hemoglobin Concent 33.3 g/dl Platelet Count 204 K/uL Mean Platelet Volume 9.4 fL Neutrophils (%) (Auto) 89.6 % Lymphocytes (%) (Auto) 3.3 % Monocytes (%) (Auto) 6.4 % Eosinophils (%) (Auto) 0.2 % Basophils (%) (Auto) 0.1 % Neutrophils # (Auto) 13.43 K/uL Lymphocytes # (Auto) 0.50 K/uL Monocytes # (Auto) 0.96 K/uL Eosinophils # (Auto) 0.03 K/uL Basophils # (Auto) 0.01 K/uL RDW Standard Deviation 46.1 fL RDW Coefficient of Variation 14.1 % Immature Granulocyte % (Auto) 0.4 % Immature Granulocyte # (Auto) 0.06 K/uL Erythrocyte Sedimentation Rate 63 mm/hr C-Reactive Protein 34.60 mg/dl Date/Time Source Procedure Growth Status 09/28/16 15:51 Blood Blood Culture Pending Received 09/28/16 15:46 Blood Blood Culture Pending Received Assessment & Plan 70 yo F presents with acute L hip septic arthritis, now with Staph aureus bacteremia and zee-sensitive Klebsiella UTI. No fevers or chills overnight but was stressed by the situation with nurses, flipped into afib with RVR. Initially was tachy into the 130s, and was thought to be dry. Given 1L IVF with improvement in HR to 90s. HR went back into 150s around 700am and EKG revealed afib with RVR, which is a new diagnosis for her. She was asymptomatic at the time. Transferred to telemetry and given Diltiazem 10mg IV bolus, then 15mg IV bolus with improvement in HR to the 110s. Crackles on lung exam this morning, CXR ordered after IVF given overnight. Previous TTE performed this admission revealsEF 60-65%, no wall motion abnormalities, no ASD and no valvular pathology or vegetation in setting of S aureus bacteremia. She has not had any chest pain, shortness of breath, fevers, chills, or UTI symptoms since admission. 1. Afib w/RVR-current efforts to rate control include cardizem bolus/drip. Cardiology consulted. TTE results during this admission WNL as above. Crackles on lung exam so CXR ordered after 1L IVF given overnight. Heparin drip ordered. Dual Infection vs increased catecholamines from stress/pain vs ETOH withdrawal are likely etiologies. Currently on appropriate abx therapy and not febrile or having chills. WBC has decreased, CRP has trended up. Apprec cardiology recs. 2. Sepsis 2/2 L hip septic arthritis-resuscitated. Aspiration under fluoroscopy was unsuccessful. Per PM, pt is not a candidate for an injection in setting of acute infection. PO pain meds were adjusted for better relief. 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 Will have her followup as outpatient for this. Appreciate ID consult. Continuing on Vanc and Rocephin at this time. WBC decreased and patient is not toxic-appearing 3. Staph aureus Bacteremia-cont Vanc, repeat BCx drawn 09/28 after 48 hours on Vanc and afebrile. TTE did not reveal any vegetations on valves. Awaiting sensitivities. ID following, appreciate recs. 4. Hyponatremia-improved to 127 on salt tabs and fluid restriction. Stopped fluid restriction while giving IVF. Cont salt tabs per Nephro, apprec recs. Cont holding HCTZ. 4. Chronic pain in L hip and back-s/p epidural injection in back two months ago. Cont aggressive pain control per PM team yesterday. She is currently on gabapentin, pamelor, dilaudid PO and morphine IV for breakthrough pain. 5. Anemia-chronic, no indication for transfusion at this time. 6. HTN-BP controlled on lisinorpil. HCTZ was held 2/2 low Na. 7. Klebsiella [id number], cont Rocephin pending hemodynamic stability in case infection is actually worsening. Apprec ID recs. 8. Leukocytosis-improved. 9. RASHEL-poss 2/2 NSAID use in setting of ACEI and poss dehydration/prerenal azotemia in sepsis. Holding Lisinopril and NSAIDs at this time. Nephro is aware. Cont IVF for now. DVT proph-heparin drip started Full Code Dispo-transferred to telemetry DO Gucci Jimenez Hospitalist Consultants: ANKIT ORTHO NEPHRO CARDS Current Inpatient Medications: Current Inpatient Medications Medications (Trade) Dose Ordered Sig/Viviane Route Start Time Stop Time Status Last Admin Dose Admin Acetaminophen (Tylenol Tab) 650 mg Q4H PRN PO 09/27/16 00:30 10/27/16 00:29 Lidocaine (Lidoderm Patch 5%) 1 patch QAM TD 09/28/16 09:00 10/28/16 08:59 Vancomycin HCl (Consult) 1 ea UD PRN N/A 09/27/16 01:00 10/27/16 00:59 Ondansetron HCl (Zofran Inj) 4 mg Q6H PRN IV 09/27/16 00:30 10/27/16 00:29 09/27/16 20:45 4 MG Lorazepam (Ativan Inj) 0.5 mg Q4H PRN IV 09/27/16 00:30 10/27/16 00:29 Miscellaneous (Remove Lidoderm Patch) 1 ea DAILY@21 N/A 09/27/16 14:00 10/27/16 13:59 09/28/16 20:23 1 EA Gabapentin (Neurontin Cap) 300 mg HS PO 09/27/16 21:00 10/27/16 20:59 09/28/16 21:18 300 MG Multivitamins/ Minerals (Multivitamin W/ Minerals Tab) 1 tab DAILY PO 09/27/16 09:00 10/27/16 08:59 09/28/16 08:14 1 TAB Tramadol HCl (Ultram Tab) pain not relieved by ibupropen/tylenol Q6H PRN PO 09/27/16 00:30 10/27/16 00:29 09/28/16 03:39 50 MG Travoprost (Travatan Z) 1 drops HS OPB 09/27/16 21:00 10/27/16 20:59 09/28/16 21:18 1 DROPS Docusate Sodium (coLACE CAP) 100 mg DAILY PO 09/28/16 09:00 10/28/16 08:59 09/28/16 13:17 100 MG Lorazepam 0.5 mg/ Syringe 1 ml @ 1 mls/min Q4H PRN IV 09/27/16 01:15 10/27/16 01:14 Vancomycin HCl 1050 mg/Sodium Chloride 271 ml @ 125 mls/hr Q18H IV 09/27/16 14:00 10/06/16 22:59 09/29/16 01:54 125 MLS/HR Morphine Sulfate (MoRPHine SULFATE INJ) 4 mg Q4HWA PRN IV 09/27/16 15:45 10/11/16 15:44 09/29/16 06:21 4 MG Famotidine (Pepcid Tab) 20 mg DAILY PRN PO 09/27/16 22:45 10/27/16 22:44 Ceftriaxone Sodium 1 gm/ Dextrose 50 ml @ 100 mls/hr Q24H IV 09/28/16 13:00 10/03/16 11:44 09/28/16 13:16 100 MLS/HR Gabapentin (Neurontin Cap) 300 mg BID@0900,1400 PO 09/29/16 09:00 10/27/16 08:59 Nortriptyline HCl (Pamelor Cap) 25 mg HS PO 09/28/16 21:00 10/28/16 20:59 09/28/16 21:19 25 MG Hydromorphone HCl (Dilaudid Tab) 2 mg Q6H PRN PO 09/28/16 15:00 10/12/16 14:59 09/29/16 03:26 2 MG Sodium Chloride (Sodium Chloride Tab) 1 gm BID PO 09/29/16 09:00 10/29/16 08:59 Potassium Chloride/Sodium Chloride 1,000 ml @ 75 mls/hr [id number] ONCE IV 09/29/16 02:30 09/29/16 15:49 09/29/16 02:24 75 MLS/HR Miscellaneous Information (Nursing Verbal Med Order) 1 ea ONE ONCE N/A 09/29/16 08:45 09/29/16 08:46 UNV Diltiazem HCl (Cardizem Inj) 15 mg NOW ONCE IV 09/29/16 08:45 09/29/16 08:46
[2016-09-29] MEDS ORDERED: DILTIAZEM BOLUS / DRIP IV STA (09:20)
[2016-09-29 09:21] LABS: PARTIAL THROMBOPLASTIN RATIO 1.4; PROTHROMBIN TIME (PATIENT) 10.5 SECONDS (9.0-12.0)
--- NOTE | 2016-09-29 09:42 | DIAGNOSTIC IMAGING REPORT ---
CHEST ONE VIEW PORTABLE CLINICAL HISTORY: No onset A. fib. Crackles on physical examination the lung bases COMPARISON STUDY: 09/26/2016 FINDINGS: There is a right-sided diaphragmatic hernia containing colonic loops. This has been described previously. The heart is normal in size. There is aortic tortuosity/ectasia. There are nonspecific increased markings within the right lung apex. This could reflect an inflammatory process, or asymmetric edema, or atelectasis given the right diaphragmatic hernia. There are no significant pleural effusions. Left lung is clear. IMPRESSION: 1. Right-sided diaphragmatic hernia containing colonic loops 2. Aortic tortuosity/ectasia 3. Nonspecific increased markings in the right lung apex. This could reflect atelectasis, asymmetric edema, or an inflammatory process. Electronically signed by: Reggie Cota M.D. 09/29/2016 9:41 AM Dictated Date/Time: 09/29/2016 9:38 AM
--- NOTE | 2016-09-29 09:42 | Nephrology Progress Note ---
Nephrology Progress Note Date of Service: Sep 29, 2016. Subjective 70 yo female with chronic degenerative disease of the hip and has uti and bacteremia and found to have hyponatremia. overnight, discovered to have afib with rvr. pt asymptomatic. Objective Date Time Temp Pulse Resp B/P (MAP) Pulse Ox O2 Delivery O2 Flow Rate FiO2 09/29/16 08:33 37.1 142 20 91 09/29/16 08:31 36.9 137 20 129/93 (105) 09/29/16 07:46 Room Air 09/29/16 07:11 37.1 139 20 125/69 (87) 91 09/29/16 02:21 36.4 92 18 108/62 (77) 100 Room Air 09/29/16 02:08 36.4 92 18 108/62 (77) 100 Room Air 09/29/16 00:01 37.0 135 18 124/67 (86) 94 Room Air 09/29/16 00:00 Room Air 09/28/16 16:00 98 Room Air 09/28/16 14:45 36.6 99 20 108/73 (85) 98 Physical Exam: General-aaox3 Eyes-no scleral icterus ENT-mmm Neck-supple Lungs-cta Heart-irregularly irregular Abdomen-bs+ s/nt/nd Extremities-no c/c/e Neuro-nonfocal Current Inpatient Medications Medications (Trade) Dose Ordered Sig/Viviane Route Start Time Stop Time Status Last Admin Dose Admin Acetaminophen (Tylenol Tab) 650 mg Q4H PRN PO 09/27/16 00:30 10/27/16 00:29 Lidocaine (Lidoderm Patch 5%) 1 patch QAM TD 09/28/16 09:00 10/28/16 08:59 Vancomycin HCl (Consult) 1 ea UD PRN N/A 09/27/16 01:00 10/27/16 00:59 Ondansetron HCl (Zofran Inj) 4 mg Q6H PRN IV 09/27/16 00:30 10/27/16 00:29 09/27/16 20:45 4 MG Lorazepam (Ativan Inj) 0.5 mg Q4H PRN IV 09/27/16 00:30 10/27/16 00:29 Miscellaneous (Remove Lidoderm Patch) 1 ea DAILY@21 N/A 09/27/16 14:00 10/27/16 13:59 09/28/16 20:23 1 EA Gabapentin (Neurontin Cap) 300 mg HS PO 09/27/16 21:00 10/27/16 20:59 09/28/16 21:18 300 MG Multivitamins/ Minerals (Multivitamin W/ Minerals Tab) 1 tab DAILY PO 09/27/16 09:00 10/27/16 08:59 09/29/16 08:47 1 TAB Tramadol HCl (Ultram Tab) pain not relieved by ibupropen/tylenol Q6H PRN PO 09/27/16 00:30 10/27/16 00:29 09/28/16 03:39 50 MG Travoprost (Travatan Z) 1 drops HS OPB 09/27/16 21:00 10/27/16 20:59 09/28/16 21:18 1 DROPS Docusate Sodium (coLACE CAP) 100 mg DAILY PO 09/28/16 09:00 10/28/16 08:59 09/29/16 08:47 100 MG Lorazepam 0.5 mg/ Syringe 1 ml @ 1 mls/min Q4H PRN IV 09/27/16 01:15 10/27/16 01:14 Vancomycin HCl 1050 mg/Sodium Chloride 271 ml @ 125 mls/hr Q18H IV 09/27/16 14:00 10/06/16 22:59 09/29/16 01:54 125 MLS/HR Morphine Sulfate (MoRPHine SULFATE INJ) 4 mg Q4HWA PRN IV 09/27/16 15:45 10/11/16 15:44 09/29/16 06:21 4 MG Famotidine (Pepcid Tab) 20 mg DAILY PRN PO 09/27/16 22:45 10/27/16 22:44 Ceftriaxone Sodium 1 gm/ Dextrose 50 ml @ 100 mls/hr Q24H IV 09/28/16 13:00 10/03/16 11:44 09/28/16 13:16 100 MLS/HR Gabapentin (Neurontin Cap) 300 mg BID@0900,1400 PO 09/29/16 09:00 10/27/16 08:59 09/29/16 08:47 300 MG Nortriptyline HCl (Pamelor Cap) 25 mg HS PO 09/28/16 21:00 10/28/16 20:59 09/28/16 21:19 25 MG Hydromorphone HCl (Dilaudid Tab) 2 mg Q6H PRN PO 09/28/16 15:00 10/12/16 14:59 09/29/16 03:26 2 MG Sodium Chloride (Sodium Chloride Tab) 1 gm BID PO 09/29/16 09:00 10/29/16 08:59 09/29/16 08:47 1 GM Potassium Chloride/Sodium Chloride 1,000 ml @ 75 mls/hr [id number] ONCE IV 09/29/16 02:30 09/29/16 15:49 09/29/16 02:24 75 MLS/HR Heparin Sodium/ Dextrose 1 ea Q10M N/A 09/29/16 08:48 10/29/16 08:47 Diltiazem HCl (Cardizem Bolus / Drip) 1 ea NOW STAT IV 09/29/16 09:20 09/29/16 09:21 UNV Last 24 Hours Test 09/28/16 17:35 09/28/16 18:44 09/29/16 01:08 09/29/16 06:33 Urine Osmolality 433 mOms/kg Sodium Level 126 mmol/L 127 mmol/L Potassium Level 3.8 mmol/L 3.7 mmol/L Chloride Level 93 mmol/L 96 mmol/L Carbon Dioxide Level 24 mmol/L 23 mmol/L Anion Gap 9.0 mmol/L 8.0 mmol/L Blood Urea Nitrogen 22 mg/dl 26 mg/dl Creatinine 1.40 mg/dl 1.60 mg/dl Est Creatinine Clear Calc Drug Dose 35.5 ml/min 31.1 ml/min Estimated GFR () 44.3 37.7 Estimated GFR (Non- 38.2 32.5 BUN/Creatinine Ratio 15.7 16.0 Random Glucose 91 mg/dl 93 mg/dl Calcium Level 9.5 mg/dl 9.1 mg/dl Magnesium Level 1.8 mg/dl Vancomycin Level Trough 16.9 mcg/ml White Blood Count 14.99 K/uL Red Blood Count 3.47 M/uL Hemoglobin 10.3 g/dL Hematocrit 30.9 % Mean Corpuscular Volume 89.0 fL Mean Corpuscular Hemoglobin 29.7 pg Mean Corpuscular Hemoglobin Concent 33.3 g/dl Platelet Count 204 K/uL Mean Platelet Volume 9.4 fL Neutrophils (%) (Auto) 89.6 % Lymphocytes (%) (Auto) 3.3 % Monocytes (%) (Auto) 6.4 % Eosinophils (%) (Auto) 0.2 % Basophils (%) (Auto) 0.1 % Neutrophils # (Auto) 13.43 K/uL Lymphocytes # (Auto) 0.50 K/uL Monocytes # (Auto) 0.96 K/uL Eosinophils # (Auto) 0.03 K/uL Basophils # (Auto) 0.01 K/uL RDW Standard Deviation 46.1 fL RDW Coefficient of Variation 14.1 % Immature Granulocyte % (Auto) 0.4 % Immature Granulocyte # (Auto) 0.06 K/uL Erythrocyte Sedimentation Rate 63 mm/hr C-Reactive Protein 34.60 mg/dl Test 09/29/16 09:02 Prothrombin Time 10.5 SECONDS Prothromb Time International Ratio 1.0 Activated Partial Thromboplast Time 35.1 SECONDS Partial Thromboplastin Ratio 1.4 Date/Time Source Procedure Growth Status 09/28/16 15:51 Blood Blood Culture Pending Received 09/28/16 15:46 Blood Blood Culture Pending Received Assessment & Plan hyponatremia-pt appears euvolemic to me. has siadh from pain. sodium levels trending up. up to 127 now. on salt tabs and fluid restriction. fluid restriction stopped secondary to afib and normal saline started. will repeat bmp again in 12 hours to follow sodium trend. if sodium levels start to worsen, consider stopping iv fluids. [id number]-hcc-[id number]-atn-likely from nsaid with afib. on iv fluids now and trying to rate control afib. off the nsaids. creatinine likely to worsen before it improves.
[2016-09-29] MEDS: DILTIAZEM HCL INJ 125 MG in DEXTROSE 5% 100ML IV PRN ×2 (09:52→20:50)
--- NOTE | 2016-09-29 09:55 | Progress Note ---
Subjective Date of Service: Sep 29, 2016. Subjective pt with afib rvr overnight, transferred. tolerating abx. afebrile. urine culture with pansensitive K. pneumo. Initial blood culture with S. aureus. sensitivities pending. Repeat blood cultures pending. no fluid analysis from attempted hip aspiration. pain management to see pt for chronic pain. wbc remains elevated but improving. Problem List Medical Problems: (1) Abnormal white blood cell count Status: Acute (2) Effusion, left hip Status: Acute (3) Fall Status: Acute (4) Fall Status: Acute (5) Hyponatremia Status: Acute (6) Left hip pain Status: Acute (7) Lumbar contusion Status: Acute (8) Lumbar contusion Status: Acute (9) Pelvic fracture Status: Acute (10) Pelvic fracture Status: Acute (11) UTI (urinary tract infection) Status: Acute Objective Vital Signs Date Time Temp Pulse Resp B/P (MAP) Pulse Ox O2 Delivery O2 Flow Rate FiO2 09/29/16 08:33 37.1 142 20 91 09/29/16 08:31 36.9 137 20 129/93 (105) 09/29/16 07:46 Room Air 09/29/16 07:11 37.1 139 20 125/69 (87) 91 09/29/16 02:21 36.4 92 18 108/62 (77) 100 Room Air 09/29/16 02:08 36.4 92 18 108/62 (77) 100 Room Air 09/29/16 00:01 37.0 135 18 124/67 (86) 94 Room Air 09/29/16 00:00 Room Air 09/28/16 16:00 98 Room Air 09/28/16 14:45 36.6 99 20 108/73 (85) 98 Laboratory Results Item Value Date Time Urine Culture - Final Complete 09/26/16 2320 Urine , Clean Catch Klebsiella Pneumoniae Blood Culture - Final Complete 09/26/16 2319 Blood Staphylococcus Aureus Blood Culture - Preliminary Resulted 09/26/16 2313 Blood Staphylococcus Aureus Last 24 Hours Test 09/28/16 17:35 09/28/16 18:44 09/29/16 01:08 09/29/16 06:33 Urine Osmolality 433 mOms/kg Sodium Level 126 mmol/L 127 mmol/L Potassium Level 3.8 mmol/L 3.7 mmol/L Chloride Level 93 mmol/L 96 mmol/L Carbon Dioxide Level 24 mmol/L 23 mmol/L Anion Gap 9.0 mmol/L 8.0 mmol/L Blood Urea Nitrogen 22 mg/dl 26 mg/dl Creatinine 1.40 mg/dl 1.60 mg/dl Est Creatinine Clear Calc Drug Dose 35.5 ml/min 31.1 ml/min Estimated GFR () 44.3 37.7 Estimated GFR (Non- 38.2 32.5 BUN/Creatinine Ratio 15.7 16.0 Random Glucose 91 mg/dl 93 mg/dl Calcium Level 9.5 mg/dl 9.1 mg/dl Magnesium Level 1.8 mg/dl Vancomycin Level Trough 16.9 mcg/ml White Blood Count 14.99 K/uL Red Blood Count 3.47 M/uL Hemoglobin 10.3 g/dL Hematocrit 30.9 % Mean Corpuscular Volume 89.0 fL Mean Corpuscular Hemoglobin 29.7 pg Mean Corpuscular Hemoglobin Concent 33.3 g/dl Platelet Count 204 K/uL Mean Platelet Volume 9.4 fL Neutrophils (%) (Auto) 89.6 % Lymphocytes (%) (Auto) 3.3 % Monocytes (%) (Auto) 6.4 % Eosinophils (%) (Auto) 0.2 % Basophils (%) (Auto) 0.1 % Neutrophils # (Auto) 13.43 K/uL Lymphocytes # (Auto) 0.50 K/uL Monocytes # (Auto) 0.96 K/uL Eosinophils # (Auto) 0.03 K/uL Basophils # (Auto) 0.01 K/uL RDW Standard Deviation 46.1 fL RDW Coefficient of Variation 14.1 % Immature Granulocyte % (Auto) 0.4 % Immature Granulocyte # (Auto) 0.06 K/uL Erythrocyte Sedimentation Rate 63 mm/hr C-Reactive Protein 34.60 mg/dl Test 09/29/16 09:02 Prothrombin Time 10.5 SECONDS Prothromb Time International Ratio 1.0 Activated Partial Thromboplast Time 35.1 SECONDS Partial Thromboplastin Ratio 1.4 Assessment and Plan (1) Staphylococcus aureus septicemia Assessment & Plan: continue current abx for now pending additional micro data. repeat blood cultures pending, tte negative for veg. will require prolonged course of abx, concerned for hip involvement.
[2016-09-29] MEDS: HEPARIN 25,000 UNIT/500ML D5W 500 ML IV PRN (09:57)
--- NOTE | 2016-09-29 10:54 | CARDIOLOGY CONSULTATION ---
DATE OF CONSULTATION: 09/29/2016 REFERRING PHYSICIAN: Gucci gan. REASON FOR CONSULTATION: Atrial fibrillation with RVR. HISTORY OF PRESENT ILLNESS: This is a 70-year-old female who was admitted with Staph aureus bacteremia as well as Klebsiella UTI. It was felt possibly due to septic left hip; however, aspiration hip has been negative. After presentation, the patient developed atrial fibrillation with RVR and was moved to telemetry unit. She has been started on a diltiazem infusion. She has no prior history of heart disease, but does mention with a previous illness that she may have had from atrial fibrillation. She has no history of ischemic heart disease or congestive heart failure. No prior history of endocarditis. A transthoracic echocardiogram performed this admission reveals no valvular vegetations. EKG reveals atrial fibrillation with RVR with nonspecific ST and T-wave changes. ALLERGIES: BRIMONIDINE, DIPHENHYDRAMINE, LATEX, EUSEBIA, AND OXYCODONE. PAST MEDICAL HISTORY: As outlined in the history of chief complaint. In addition, the patient has a history of hypertension. SOCIAL HISTORY: The patient stopped smoking in 2011. FAMILY MEDICAL HISTORY: Noncontributory. REVIEW OF SYSTEMS: A 10-point review of systems is negative except for the history of chief complaint. PHYSICAL EXAMINATION: GENERAL: She is alert and oriented. VITAL SIGNS: Pulse is irregular at 120 beats per minute. Blood pressure is 110/70. She is afebrile. HEENT: She is normocephalic. Pupils are equal and reactive to light. Extraocular muscles are intact bilaterally. NECK: The neck veins are flat. Carotids have good upstrokes bilaterally without bruits. Thyroid is nonpalpable. RESPIRATORY: Breath sounds equal bilaterally and clear to auscultation. CARDIOVASCULAR: Heart has an irregular rhythm. There are no cardiac rubs or murmurs. GASTROINTESTINAL: Abdomen is soft and nontender without organomegaly. EXTREMITIES: Free of edema, digit clubbing, or cyanosis. NEUROLOGIC: Grossly intact. SKIN: Warm to touch. LYMPH NODES: Negative to palpation. LABORATORY DATA: WBC count is 14.9 and hemoglobin is 10.3. Potassium is 3.7, sodium is 127, and creatinine is 1.6. IMPRESSION: 1. Staph aureus bacteremia, possibly from a septic left hip. 2. Klebsiella urinary tract infection. 3. Atrial fibrillation with rapid ventricular response. RECOMMENDATIONS: The patient is currently on diltiazem and heparin drip, which I think is appropriate. Hopefully, once her acute illness has improved, she will convert back to her normal sinus rhythm. Supportive care is indicated. If her bacteremia persists, then I think she should have a transesophageal echocardiogram to further evaluate her cardiac valves and rule out endocarditis. We will follow along with you during her hospital stay. PANCHO
[2016-09-29] MEDS: CEFTRIAXONE SOD INJ 1 GM in DEXTROSE 5% ADD-VANTAGE 50ML 50 ML IV SCH (13:00)
[2016-09-29 17:23] LABS: PARTIAL THROMBOPLASTIN RATIO 1.9
[2016-09-29 17:28] LABS: BUN/CREATININE RATIO 17.7 (10-20); CALCIUM 8.6 mg/dl (8.5-10.1); CREATININE 1.5 mg/dl (0.60-1.20); POTASSIUM 4.4 mmol/L (3.5-5.1)
[2016-09-29] MEDS: TRAVOPROST Z 0.004% OPH SOLN 2.5 ML BTL OPB SCH (21:00)
[2016-09-29] MEDS: NORTRIPTYLINE HCL 25 MG CAP PO SCH (21:01)
[2016-09-29] MEDS ORDERED: LEVALBUTEROL/IPRATROPIUM NEB INH STA (22:31)
[2016-09-29] MEDS ORDERED: LEVALBUTEROL 1.25MG/0.5ML NEB INH STA (22:34)
[2016-09-29] MEDS ORDERED: IPRATROPIUM BROMIDE NEB SOLN 0.02% 2.5 ML VIAL INH STA (22:34)
[2016-09-29] MEDS ORDERED: LEVALBUTEROL 1.25MG/0.5ML NEB INH PRN (22:45)
[2016-09-29] MEDS ORDERED: IPRATROPIUM BROMIDE NEB SOLN 0.02% 2.5 ML VIAL INH PRN (22:45)
[2016-09-29] MEDS ORDERED: LEVALBUTEROL/IPRATROPIUM NEB INH PRN (22:45)
--- NOTE | 2016-09-29 22:49 | DIAGNOSTIC IMAGING REPORT ---
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 The heart remains normal in size. There are improving asymmetric interstitial right upper lung zone opacities. The left lung remains clear. There are no pleural effusions.[ There is stable aortic tortuosity/ectasia. IMPRESSION: 1. 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 Decreasing right upper lobe interstitial prominence 3. No evidence of lobar consolidation Electronically signed by: Reggie Cota M.D. 09/29/2016 10:47 PM Dictated Date/Time: 09/29/2016 10:46 PM
--- NOTE | 2016-09-29 22:50 | Progress Note ---
Internal Med Progress Note Date of Service: Sep 29, 2016. Provider Documentation: Made aware by RN around on 10:30 PM of a patient respiratory distress. Patient complaining of shortness of breath, harsh dry hacking cough noted. No chest pain O2 sats 70s. Wheezing noted as per RN. Chest x-ray as per my interpretation, asymmetric congestion, right, possible right upper lobe infiltrate. AP Acute hypoxemic respiratory failure Multifactorial : HAP Mild pulmonary congestion Supplemental O2 Baseline ABG Nebs, steroids for bronchospasm causing hypoxemia, respiratory distress Zosyn (may discontinue Ceftriaxone for UTI) Lasix 1 dose. Vital Signs: Date Time Temp Pulse Resp B/P (MAP) Pulse Ox O2 Delivery O2 Flow Rate FiO2 09/30/16 04:37 36.9 73 18 108/62 (77) 93 Oxymask 09/30/16 04:00 Oxymask 5.0 09/30/16 00:14 36.6 95 16 125/80 (95) 97 Room Air 09/30/16 00:05 115 09/29/16 23:59 Oxymask 5.0 09/29/16 23:14 122 18 94 Mask 2.0 09/29/16 20:00 Nasal Cannula 3.0 09/29/16 19:15 36.9 93 16 99/60 (73) 93 Nasal Cannula 3.0 09/29/16 18:00 102 17 106/69 (81) 92 09/29/16 17:00 93 17 103/65 (78) 91 09/29/16 16:00 97 14 93/64 (74) 09/29/16 16:00 94 Nasal Cannula 3.0 09/29/16 15:16 36.7 86 16 102/67 (79) 95 Nasal Cannula 3.0 09/29/16 15:00 91 17 102/67 (79) 94 09/29/16 14:40 90 16 104/69 (81) 92 09/29/16 14:00 97 16 89/60 (70) 94 09/29/16 13:00 102 28 104/66 (79) 95 09/29/16 12:56 97 Nasal Cannula 3.0 09/29/16 12:00 139 16 116/63 (80) 80 09/29/16 11:40 129 17 119/81 (94) 09/29/16 11:40 37.1 126 23 119/81 (94) 91 Humidified Air 2.0 09/29/16 11:01 128 18 127/63 (84) 09/29/16 11:00 130 22 09/29/16 10:00 95 Nasal Cannula 3.0 09/29/16 10:00 131 14 130/85 (100) 81 09/29/16 08:33 37.1 142 20 91 09/29/16 08:31 36.9 137 20 129/93 (105) 09/29/16 07:46 Room Air 09/29/16 07:11 37.1 139 20 125/69 (87) 91 Lab Results: Results Past 24 Hours Test 09/29/16 09:02 09/29/16 16:57 09/29/16 23:32 09/30/16 06:13 Range/Units Prothrombin Time 10.5 9.0-12.0 SECONDS Prothromb Time International Ratio 1.0 0.9-1.1 Activated Partial Thromboplast Time 35.1 50.3 21.0-31.0 SECONDS Partial Thromboplastin Ratio 1.4 1.9 Sodium Level 129 136-145 mmol/L Potassium Level 4.4 3.5-5.1 mmol/L Chloride Level 101 98-107 mmol/L Carbon Dioxide Level 21 21-32 mmol/L Anion Gap 7.0 3-11 mmol/L Blood Urea Nitrogen 27 7-18 mg/dl Creatinine 1.50 0.60-1.20 mg/dl Est Creatinine Clear Calc Drug Dose 33.1 ml/min Estimated GFR () 40.8 Estimated GFR (Non- 35.2 BUN/Creatinine Ratio 17.7 10-20 Random Glucose 105 70-99 mg/dl Calcium Level 8.6 8.5-10.1 mg/dl Arterial Blood pH 7.42 7.35-7.45 Arterial Blood Partial Pressure CO2 30 35-46 mmHg Arterial Blood Partial Pressure O2 72 80-95 mm/Hg Arterial Blood HCO3 19 19-24 mmol/L Arterial Blood Oxygen Saturation 92.8 90-95 % Arterial Blood Base Excess -4.9 -9-1.8 mEq/L Arterial Blood Gas Delivery 2.5 L Hipolito Test POS POS Magnesium Level 1.6 1.8-2.4 mg/dl Microbiology Results 09/29/16 Blood Culture, Received Pending 09/29/16 Blood Culture, Received Pending
[2016-09-29] MEDS ORDERED: PIPERACILLIN/TAZOBACTAM 4.5 GM/100ML D5W IV STA (22:53)
[2016-09-29] MEDS ORDERED: METHYLPREDNISOLONE IV 40 MG in SYRINGE 0 ML IV ONE (23:00)
[2016-09-29] MEDS ORDERED: PIPERACILL/TAZOBAC CONSULT ACTIVE PRN (23:00)
[2016-09-29] MEDS ORDERED: FUROSEMIDE INJ 40 MG in SYRINGE 0 ML IV ONE (23:00)
[2016-09-30] VITALS (8 sets, daily range): BP systolic 99–125; BP diastolic 58–80; PULSE 73–95; TEMP 36.6–36.9; O2SAT 91–98
[2016-09-30] MEDS ORDERED: DIGOXIN IV 250 MCG in SYRINGE 9 ML IV ONE
[2016-09-30 00:04] LABS: ARTERIAL BLD GAS O2 SATURATION 92.8 % (90-95); ARTERIAL BLOOD GAS BASE EXCESS -4.9 mEq/L (-9-1.8); ARTERIAL BLOOD GAS HCO3 19 mmol/L (19-24); ARTERIAL BLOOD GAS PO2 72 mm/Hg (80-95); ARTERIAL BLOOD GAS pH 7.42 (7.35-7.45)
[2016-09-30 00:05] LABS: ALLEN TEST POS (POS); O2 ADMINISTRATION 2.5 L
[2016-09-30] MEDS: DILTIAZEM HCL INJ 125 MG in DEXTROSE 5% 100ML IV PRN (04:38)
[2016-09-30] MEDS: PIPERACILL/TAZOBAC IV 3.375 GM in DEXTROSE 5% 100ML IV SCH ×2 (04:55→12:21)
[2016-09-30 07:00] LABS: BASO % 0.1 %; BASO ABS # 0.01 K/uL (0-0.2); COMPLETE YES; EOS % 0.1 %; HEMATOCRIT 29.3 % (37-47); IG% 0.5 %; LYMPH % 3.1 %; LYMPH ABS # 0.52 K/uL (1.2-3.4); MEAN CELL VOLUME 89.3 fL (80-100); MEAN CORPUSCULAR HEMOGLOBIN 29.6 pg (25-34); MEAN CORPUSCULAR HGB CONC 33.1 g/dl (32-36); MONO % 2.8 %; NEUT % 93.4 %; PLATELET COUNT 189 K/uL (130-400); RED BLOOD COUNT 3.28 M/uL (4.2-5.4); WHITE BLOOD COUNT 16.64 K/uL (4.8-10.8)
[2016-09-30 07:12] LABS: PARTIAL THROMBOPLASTIN RATIO 1.7
[2016-09-30 07:29] LABS: BUN/CREATININE RATIO 15.4 (10-20); CALCIUM 9.2 mg/dl (8.5-10.1); CREATININE 1.9 mg/dl (0.60-1.20); POTASSIUM 4.1 mmol/L (3.5-5.1)
[2016-09-30] MEDS ORDERED: MAGNESIUM SULFATE 1GM / D5W 1 GM in PREMIXED IN D5W 100 ML IV ONE (08:00)
[2016-09-30] MEDS ORDERED: HEPARIN IV BOLUS 2,000 UNIT in SYRINGE 0 ML IV ONE ×2 (08:30→17:45)
[2016-09-30] MEDS: DOCUSATE SODIUM 100 MG CAP PO SCH (08:38)
[2016-09-30] MEDS: CEROVITE ADV FORMULA TAB PO SCH (08:38)
[2016-09-30] MEDS: GUAIFENESIN 600 MG TABCR PO SCH ×2 (08:38→21:36)
[2016-09-30] MEDS: GABAPENTIN 300 MG CAP PO SCH ×3 (08:38→21:36)
[2016-09-30] MEDS: SODIUM CHLORIDE 1 GM TAB PO SCH (08:39)
[2016-09-30] MEDS: LIDODERM (LIDOCAINE) PATCH 5% TD SCH (08:39)
--- NOTE | 2016-09-30 08:56 | Nephrology Progress Note ---
Nephrology Progress Note Date of Service: Sep 30, 2016. Subjective 70 yo female with chronic degenerative disease of the hip and has uti and bacteremia and found to have hyponatremia. then developed afib requiring diltiazem. pt then last night developed acute worsening sob. given nebs and a dose of lasix. having wheezing. pt requiring face mask. Objective Date Time Temp Pulse Resp B/P (MAP) Pulse Ox O2 Delivery O2 Flow Rate FiO2 09/30/16 08:00 95 Oxymask 2.5 09/30/16 07:00 36.7 86 20 109/58 (75) 94 2.0 09/30/16 04:37 36.9 73 18 108/62 (77) 93 Oxymask 09/30/16 04:00 Oxymask 5.0 09/30/16 00:14 36.6 95 16 125/80 (95) 97 Room Air 09/30/16 00:05 115 09/29/16 23:59 Oxymask 5.0 09/29/16 23:14 122 18 94 Mask 2.0 09/29/16 20:00 Nasal Cannula 3.0 09/29/16 19:15 36.9 93 16 99/60 (73) 93 Nasal Cannula 3.0 09/29/16 18:00 102 17 106/69 (81) 92 09/29/16 17:00 93 17 103/65 (78) 91 09/29/16 16:00 97 14 93/64 (74) 09/29/16 16:00 94 Nasal Cannula 3.0 09/29/16 15:16 36.7 86 16 102/67 (79) 95 Nasal Cannula 3.0 09/29/16 15:00 91 17 102/67 (79) 94 09/29/16 14:40 90 16 104/69 (81) 92 09/29/16 14:00 97 16 89/60 (70) 94 09/29/16 13:00 102 28 104/66 (79) 95 09/29/16 12:56 97 Nasal Cannula 3.0 09/29/16 12:00 139 16 116/63 (80) 80 09/29/16 11:40 129 17 119/81 (94) 09/29/16 11:40 37.1 126 23 119/81 (94) 91 Humidified Air 2.0 09/29/16 11:01 128 18 127/63 (84) 09/29/16 11:00 130 22 09/29/16 10:00 95 Nasal Cannula 3.0 09/29/16 10:00 131 14 130/85 (100) 81 Physical Exam: General-aaox3 Eyes-no scleral icterus ENT-mmm Neck-supple Lungs-wheezing Heart-irregularly irregular Abdomen-bs+ s/nt/nd Extremities-no c/c/e Neuro-nonfocal Current Inpatient Medications Medications (Trade) Dose Ordered Sig/Viviane Route Start Time Stop Time Status Last Admin Dose Admin Acetaminophen (Tylenol Tab) 650 mg Q4H PRN PO 09/27/16 00:30 10/27/16 00:29 Lidocaine (Lidoderm Patch 5%) 1 patch QAM TD 09/28/16 09:00 10/28/16 08:59 09/30/16 08:39 1 PATCH Vancomycin HCl (Consult) 1 ea UD PRN N/A 09/27/16 01:00 10/27/16 00:59 Ondansetron HCl (Zofran Inj) 4 mg Q6H PRN IV 09/27/16 00:30 10/27/16 00:29 09/27/16 20:45 4 MG Lorazepam (Ativan Inj) 0.5 mg Q4H PRN IV 09/27/16 00:30 10/27/16 00:29 09/29/16 12:03 0.5 MG Miscellaneous (Remove Lidoderm Patch) 1 ea DAILY@21 N/A 09/27/16 14:00 10/27/16 13:59 09/28/16 20:23 1 EA Gabapentin (Neurontin Cap) 300 mg HS PO 09/27/16 21:00 10/27/16 20:59 09/29/16 21:01 300 MG Multivitamins/ Minerals (Multivitamin W/ Minerals Tab) 1 tab DAILY PO 09/27/16 09:00 10/27/16 08:59 09/30/16 08:38 1 TAB Tramadol HCl (Ultram Tab) pain not relieved by ibupropen/tylenol Q6H PRN PO 09/27/16 00:30 10/27/16 00:29 09/28/16 03:39 50 MG Travoprost (Travatan Z) 1 drops HS OPB 09/27/16 21:00 10/27/16 20:59 09/29/16 21:00 1 DROPS Docusate Sodium (coLACE CAP) 100 mg DAILY PO 09/28/16 09:00 10/28/16 08:59 09/30/16 08:38 100 MG Lorazepam 0.5 mg/ Syringe 1 ml @ 1 mls/min Q4H PRN IV 09/27/16 01:15 10/27/16 01:14 Vancomycin HCl 1050 mg/Sodium Chloride 271 ml @ 125 mls/hr Q18H IV 09/27/16 14:00 10/06/16 22:59 09/29/16 20:38 125 MLS/HR Morphine Sulfate (MoRPHine SULFATE INJ) 4 mg Q4HWA PRN IV 09/27/16 15:45 10/11/16 15:44 09/29/16 21:09 4 MG Famotidine (Pepcid Tab) 20 mg DAILY PRN PO 09/27/16 22:45 10/27/16 22:44 Gabapentin (Neurontin Cap) 300 mg BID@0900,1400 PO 09/29/16 09:00 10/27/16 08:59 09/30/16 08:38 300 MG Nortriptyline HCl (Pamelor Cap) 25 mg HS PO 09/28/16 21:00 10/28/16 20:59 09/29/16 21:01 25 MG Hydromorphone HCl (Dilaudid Tab) 2 mg Q6H PRN PO 09/28/16 15:00 10/12/16 14:59 09/29/16 11:00 2 MG Sodium Chloride (Sodium Chloride Tab) 1 gm BID PO 09/29/16 09:00 10/29/16 08:59 09/30/16 08:39 1 GM Heparin Sodium/ Dextrose 500 ml @ 23 mls/hr [id number] PRN IV 09/29/16 09:45 10/29/16 09:44 09/29/16 09:57 21 MLS/HR Diltiazem HCl 125 mg/Dextrose 125 ml @ 0 mls/hr Q0M PRN IV 09/29/16 09:45 10/29/16 09:44 09/30/16 04:38 5 MLS/HR Ipratropium [place] (Atrovent 0.02% 0.5MG/2.5ML Neb) 0.5 mg Q4H PRN INH 09/29/16 22:45 10/29/16 22:44 Levalbuterol (Xopenex 1.25MG/ 0.5ML Neb) 1.25 mg Q4H PRN INH 09/29/16 22:45 10/29/16 22:44 Piperacillin Sod/ Tazobactam Sod (Consult) 1 ea UD PRN N/A 09/29/16 23:00 10/29/16 22:59 Piperacillin Sod/ Tazobactam Sod 3.375 gm/Dextrose 115 ml @ 28.75 mls/ hr Q8H IV 09/30/16 04:00 10/07/16 03:59 09/30/16 04:55 28.75 MLS/HR Guaifenesin (Mucinex Contr Rel Tab) 600 mg Q12 PO 09/30/16 09:00 10/30/16 08:59 09/30/16 08:38 600 MG Magnesium Sulfate 1 gm/Prmx 100 ml @ 100 mls/hr TODAY@0800 ONCE IV 09/30/16 08:00 09/30/16 08:59 09/30/16 08:37 100 MLS/HR Last 24 Hours Test 09/29/16 09:02 09/29/16 16:57 09/29/16 23:32 09/30/16 06:13 Prothrombin Time 10.5 SECONDS Prothromb Time International Ratio 1.0 Activated Partial Thromboplast Time 35.1 SECONDS 50.3 SECONDS 43.2 SECONDS Partial Thromboplastin Ratio 1.4 1.9 1.7 Sodium Level 129 mmol/L 129 mmol/L Potassium Level 4.4 mmol/L 4.1 mmol/L Chloride Level 101 mmol/L 99 mmol/L Carbon Dioxide Level 21 mmol/L 20 mmol/L Anion Gap 7.0 mmol/L 10.0 mmol/L Blood Urea Nitrogen 27 mg/dl 29 mg/dl Creatinine 1.50 mg/dl 1.90 mg/dl Est Creatinine Clear Calc Drug Dose 33.1 ml/min 26.3 ml/min Estimated GFR () 40.8 30.6 Estimated GFR (Non- 35.2 26.4 BUN/Creatinine Ratio 17.7 15.4 Random Glucose 105 mg/dl 174 mg/dl Calcium Level 8.6 mg/dl 9.2 mg/dl Arterial Blood pH 7.42 Arterial Blood Partial Pressure CO2 30 mmHg Arterial Blood Partial Pressure O2 72 mm/Hg Arterial Blood HCO3 19 mmol/L Arterial Blood Oxygen Saturation 92.8 % Arterial Blood Base Excess -4.9 mEq/L Arterial Blood Gas Delivery 2.5 L [place] Test POS Magnesium Level 1.6 mg/dl White Blood Count 16.64 K/uL Red Blood Count 3.28 M/uL Hemoglobin 9.7 g/dL Hematocrit 29.3 % Mean Corpuscular Volume 89.3 fL Mean Corpuscular Hemoglobin 29.6 pg Mean Corpuscular Hemoglobin Concent 33.1 g/dl Platelet Count 189 K/uL Mean Platelet Volume 9.0 fL Neutrophils (%) (Auto) 93.4 % Lymphocytes (%) (Auto) 3.1 % Monocytes (%) (Auto) 2.8 % Eosinophils (%) (Auto) 0.1 % Basophils (%) (Auto) 0.1 % Neutrophils # (Auto) 15.56 K/uL Lymphocytes # (Auto) 0.52 K/uL Monocytes # (Auto) 0.46 K/uL Eosinophils # (Auto) 0.01 K/uL Basophils # (Auto) 0.01 K/uL RDW Standard Deviation 48.0 fL RDW Coefficient of Variation 14.5 % Immature Granulocyte % (Auto) 0.5 % Immature Granulocyte # (Auto) 0.08 K/uL Date/Time Source Procedure Growth Status 09/29/16 23:32 Blood Blood Culture Pending Received 8 23:32 Blood Blood Culture Pending Received Assessment & Plan hyponatremia-initially thought patient had siadh from chronic pain, was on salt tabs and fluid restriction. pt now appears fluid overloaded to me. will stop the salt tabs and continue lasix. ok if sodium worsens while trying to optimize pulmonary exam. [id number]-biuqnanf-atn-likely from nsaid with afib. creatinine has been trending up and has had a complicated hospital course with degenerative hip disease/uti/ bacteremia/hyponatremia/rashel/afib/and now fluid overloaded vs HAP. chest xray was not impressive for fluid overload last night. question pe. abg done. creatinine trending up. would like to avoid ct with contrast for now. already on a heparin drip. to repeat chest xray again today and continue with the lasix /nebs. would also like to stop the vancomycin which may be contributing to the RASHEL as well. defer to ID and pharmacy.
[2016-09-30] MEDS: HEPARIN 25,000 UNIT/500ML D5W 500 ML IV PRN (09:40)
[2016-09-30] MEDS: FUROSEMIDE INJ 40 MG in SYRINGE 0 ML IV SCH (09:43)
--- NOTE | 2016-09-30 11:36 | PROGRESS NOTE ---
DATE: 09/30/2016 FOLLOWUP VISIT SUBJECTIVE: This is a 70-year-old female who was admitted with Staph aureus bacteremia as well as Klebsiella UTI. It was felt that she possibly had a septic left hip; however, the aspirate was negative. She developed atrial fibrillation with RVR, which has been well controlled with diltiazem. Last evening, she developed some shortness of breath and was given IV diuretics as well as IV digoxin by the hospitalist. She is sitting in a chair this morning. She is alert, but somewhat lethargic perhaps due to being up at night. She is in no acute distress and on the monitor, she is in a controlled atrial fibrillation. OBJECTIVE: VITAL SIGNS: Blood pressure is 110/60 and pulse is irregular at 85 beats per minute. She is afebrile. HEENT: She is normocephalic. Pupils are equal and reactive to light. NECK: The neck veins are flat. Carotids have good upstrokes bilaterally without bruits. Thyroid is nonpalpable. RESPIRATORY: Breath sounds equal bilaterally and clear to auscultation. CARDIOVASCULAR: Heart has an irregular rhythm. Normal S1 and S2. No S3 or S4. GASTROINTESTINAL: Abdomen is soft and nontender without organomegaly. EXTREMITIES: Free of edema, digit clubbing, or cyanosis. NEUROLOGIC: Grossly intact. SKIN: Warm to touch. LYMPH NODES: Negative to palpation. LABORATORY DATA: Hemoglobin is 9.7. Potassium is 4.1 and creatinine is 1.9. IMPRESSION: 1. Staph aureus bacteremia, possible septic left hip. 2. Klebsiella urinary tract infection. 3. Atrial fibrillation with rapid ventricular response. RECOMMENDATIONS: I would continue the diltiazem and heparin drip. We will have to be more careful with her fluid management. I would continue her antibiotics.
[2016-09-30] MEDS ORDERED: VANCOMYCIN TROUGH SCH (13:30)
--- NOTE | 2016-09-30 13:43 | Progress Note ---
Medicine Progress Note Date & Time of Visit: Sep 30, 2016 at 11:52. Subjective 70 yo F presents with acute L hip septic arthritis, now with Staph aureus bacteremia and zee-sensitive Klebsiella UTI. No fevers or chills overnight but was stressed by the situation with nurses, flipped into afib with RVR. Initially was tachy into the 130s, and was thought to be dry. Given 1L IVF with improvement in HR to 90s. HR went back into 150s around 700am and EKG revealed afib with RVR, which is a new diagnosis for her. She was asymptomatic at the time. Transferred to telemetry and given Diltiazem 10mg IV bolus, then 15mg IV bolus with improvement in HR to the 110s. Crackles on lung exam this morning, CXR ordered after IVF given overnight. Previous TTE performed this admission revealsEF 60-65%, no wall motion abnormalities, no ASD and no valvular pathology or vegetation in setting of S aureus bacteremia. She has not had any chest pain, shortness of breath, fevers, chills, or UTI symptoms since admission. -breathing has improved -still on oxygen -denies coughing, fevers, chills -pain in hip and back appears controlled at this time -we discussed in depth the plan moving forward -she described last night progressively feeling short of breath as the night wore on. -given dig, Lasix and solumedrol overnight. -started on Zosyn for coverage of poss HAP and coverage of UTI Objective Last 8 Hrs Date Time Temp Pulse Resp B/P (MAP) Pulse Ox O2 Delivery O2 Flow Rate FiO2 09/30/16 08:00 95 Oxymask 2.5 09/30/16 07:00 36.7 86 20 109/58 (75) 94 2.0 09/30/16 04:37 36.9 73 18 108/62 (77) 93 Oxymask 09/30/16 04:00 Oxymask 5.0 Physical Exam: GEN: WNWD, in no acute distress, alert and appropriate, not ill-appearing, OXymask in place, sitting in bedside chair HEENT: NC/AT, normal sclerae, MMM CARDIO: reg rate, irregular rhythm, S1/2 heard without m/g/r LUNGS: CTAB, no wheezing or rales. ABD: soft, non-tender, non-distended, no rebound or guarding, +BS EXTREMITY: RP and DP palpable 2+ bilat, no LE swelling or edema, extremities are warm and well-perfused NEURO: CN 2-12 grossly intact MUSC: difficulty moving L leg in general, but once she gets it going is able to kick well in front of her, otherwise moves other extremities equally, unable to bear weight SKIN: warm and dry Laboratory Results: 09/30/16 06:13 Red Blood Count 3.28, Mean Corpuscular Volume 89.3, Mean Corpuscular Hemoglobin 29.6, Mean Corpuscular Hemoglobin Concent 33.1, Mean Platelet Volume 9.0, Neutrophils (%) (Auto) 93.4, Lymphocytes (%) (Auto) 3.1, Monocytes (%) (Auto) 2.8, Eosinophils (%) (Auto) 0.1, Basophils (%) (Auto) 0.1, Neutrophils # (Auto) 15.56, Lymphocytes # (Auto) 0.52, Monocytes # (Auto) 0.46, Eosinophils # (Auto) 0.01, Basophils # (Auto) 0.01 09/30/16 06:13 Test 09/26/16 20:15 09/26/16 23:19 09/26/16 23:20 09/26/16 23:30 Total Bilirubin 0.7 mg/dl (0.2-1) Direct Bilirubin 0.2 mg/dl (0-0.2) Aspartate Amino Transf (AST/SGOT) 31 U/L (15-37) Alanine Aminotransferase (ALT/SGPT) 33 U/L (12-78) Alkaline Phosphatase 72 U/L (45-117) Total Protein 7.3 gm/dl (6.4-8.2) Albumin 3.8 gm/dl (3.4-5.0) Lipase 80 U/L (73-393) Thyroid Stimulating Hormone (TSH) 2.290 uIu/ml (0.300-4.500) Lyme Disease IgG Antibody NEG (NEG) Lyme Disease IgM Antibody NEG (NEG) Lactic Acid Level 1.4 mmol/L (0.4-2.0) Urine Color YELLOW Urine Appearance CLOUDY (CLEAR) Urine pH 5.5 (4.5-7.5) Urine Specific [place] 1.015 (1.000-1.030) Urine Protein NEG (NEG) Urine Glucose (UA) NEG (NEG) Urine Ketones TRACE (NEG) Urine Occult Blood TRACE (NEG) Urine Nitrite NEG (NEG) Urine Bilirubin NEG (NEG) Urine Urobilinogen NEG (NEG) Urine Leukocyte Esterase MODERATE (NEG) Urine WBC (Auto) >30 /hpf (0-5) Urine RBC (Auto) 0-4 /hpf (0-4) Urine Hyaline Casts (Auto) 5-10 /lpf (0-5) Urine Epithelial Cells (Auto) 5-10 /lpf (0-5) Urine Bacteria (Auto) 4+ (NEG) Urine Random Sodium 35 mEq/L Test 09/27/16 01:34 09/28/16 06:19 09/28/16 17:35 09/29/16 06:33 Ethyl Alcohol mg/dL < 3.0 mg/dl (0-3) Dohle Bodies 1+ Osmolality 257 mOsm/kg (280-300) Urine Osmolality 433 mOms/kg (500-800) Erythrocyte Sedimentation Rate 63 mm/hr (0-21) C-Reactive Protein 34.60 mg/dl (0-0.29) Test 09/29/16 09:02 09/29/16 23:32 09/30/16 06:13 09/30/16 13:12 Prothrombin Time 10.5 SECONDS (9.0-12.0) Prothromb Time International Ratio 1.0 (0.9-1.1) Arterial Blood pH 7.42 (7.35-7.45) Arterial Blood Partial Pressure CO2 30 mmHg (35-46) Arterial Blood Partial Pressure O2 72 mm/Hg (80-95) Arterial Blood HCO3 19 mmol/L (19-24) Arterial Blood Oxygen Saturation 92.8 % (90-95) Arterial Blood Base Excess -4.9 mEq/L (-9-1.8) Arterial Blood Gas Delivery 2.5 L Hipolito Test POS (POS) Magnesium Level 1.6 mg/dl (1.8-2.4) White Blood Count 16.64 K/uL (4.8-10.8) Red Blood Count 3.28 M/uL (4.2-5.4) Hemoglobin 9.7 g/dL (12.0-16.0) Hematocrit 29.3 % (37-47) Mean Corpuscular Volume 89.3 fL (80-100) Mean Corpuscular Hemoglobin 29.6 pg (25-34) Mean Corpuscular Hemoglobin Concent 33.1 g/dl (32-36) Platelet Count 189 K/uL (130-400) Mean Platelet Volume 9.0 fL (7.4-10.4) Neutrophils (%) (Auto) 93.4 % Lymphocytes (%) (Auto) 3.1 % Monocytes (%) (Auto) 2.8 % Eosinophils (%) (Auto) 0.1 % Basophils (%) (Auto) 0.1 % Neutrophils # (Auto) 15.56 K/uL (1.4-6.5) Lymphocytes # (Auto) 0.52 K/uL (1.2-3.4) Monocytes # (Auto) 0.46 K/uL (0.11-0.59) Eosinophils # (Auto) 0.01 K/uL (0-0.5) Basophils # (Auto) 0.01 K/uL (0-0.2) RDW Standard Deviation 48.0 fL (36.4-46.3) RDW Coefficient of Variation 14.5 % (11.5-14.5) Immature Granulocyte % (Auto) 0.5 % Immature Granulocyte # (Auto) 0.08 K/uL (0.00-0.02) Activated Partial Thromboplast Time 43.2 SECONDS (21.0-31.0) Partial Thromboplastin Ratio 1.7 Anion Gap 10.0 mmol/L (3-11) Est Creatinine Clear Calc Drug Dose 26.3 ml/min Estimated GFR () 30.6 Estimated GFR (Non- 26.4 BUN/Creatinine Ratio 15.4 (10-20) Calcium Level 9.2 mg/dl (8.5-10.1) Date/Time Source Procedure Growth Status 09/29/16 23:32 Blood Blood Culture Pending Received 09/27/16 00:00 Nasal MRSA DNA Surveillance Screen - Final Specimen Negative for MRSA by DNA Probe Complete 09/27/16 03:30 Urine , Clean Catch Urine Culture - Final Klebsiella Pneumoniae Complete Last 24 Hours Test 09/29/16 16:57 09/29/16 23:32 09/30/16 06:13 Activated Partial Thromboplast Time 50.3 SECONDS 43.2 SECONDS Partial Thromboplastin Ratio 1.9 1.7 Sodium Level 129 mmol/L 129 mmol/L Potassium Level 4.4 mmol/L 4.1 mmol/L Chloride Level 101 mmol/L 99 mmol/L Carbon Dioxide Level 21 mmol/L 20 mmol/L Anion Gap 7.0 mmol/L 10.0 mmol/L Blood Urea Nitrogen 27 mg/dl 29 mg/dl Creatinine 1.50 mg/dl 1.90 mg/dl Est Creatinine Clear Calc Drug Dose 33.1 ml/min 26.3 ml/min Estimated GFR () 40.8 30.6 Estimated GFR (Non- 35.2 26.4 BUN/Creatinine Ratio 17.7 15.4 Random Glucose 105 mg/dl 174 mg/dl Calcium Level 8.6 mg/dl 9.2 mg/dl Arterial Blood pH 7.42 Arterial Blood Partial Pressure CO2 30 mmHg Arterial Blood Partial Pressure O2 72 mm/Hg Arterial Blood HCO3 19 mmol/L Arterial Blood Oxygen Saturation 92.8 % Arterial Blood Base Excess -4.9 mEq/L Arterial Blood Gas Delivery 2.5 L [place] Test POS Magnesium Level 1.6 mg/dl White Blood Count 16.64 K/uL Red Blood Count 3.28 M/uL Hemoglobin 9.7 g/dL Hematocrit 29.3 % Mean Corpuscular Volume 89.3 fL Mean Corpuscular Hemoglobin 29.6 pg Mean Corpuscular Hemoglobin Concent 33.1 g/dl Platelet Count 189 K/uL Mean Platelet Volume 9.0 fL Neutrophils (%) (Auto) 93.4 % Lymphocytes (%) (Auto) 3.1 % Monocytes (%) (Auto) 2.8 % Eosinophils (%) (Auto) 0.1 % Basophils (%) (Auto) 0.1 % Neutrophils # (Auto) 15.56 K/uL Lymphocytes # (Auto) 0.52 K/uL Monocytes # (Auto) 0.46 K/uL Eosinophils # (Auto) 0.01 K/uL Basophils # (Auto) 0.01 K/uL RDW Standard Deviation 48.0 fL RDW Coefficient of Variation 14.5 % Immature Granulocyte % (Auto) 0.5 % Immature Granulocyte # (Auto) 0.08 K/uL Date/Time Source Procedure Growth Status 09/29/16 23:32 Blood Blood Culture Pending Received 09/29/16 23:32 Blood Blood Culture Pending Received Diagnostic Imaging: CHEST ONE VIEW PORTABLE CLINICAL HISTORY: Respiratory distress COMPARISON STUDY: 09/29/2016 FINDINGS: There is a persistent right-sided diaphragmatic hernia containing colonic loops. The heart remains normal in size. There are improving asymmetric interstitial right upper lung zone opacities. The left lung remains clear. There are no pleural effusions.[ There is stable aortic tortuosity/ectasia. IMPRESSION: 1. 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 Decreasing right upper lobe interstitial prominence 3. No evidence of lobar consolidation Assessment & Plan 70 yo F presents with acute L hip septic arthritis, now with Staph aureus bacteremia and zee-sensitive Klebsiella UTI. No fevers or chills overnight but was stressed by the situation with nurses, flipped into afib with RVR. Initially was tachy into the 130s, and was thought to be dry. Given 1L IVF with improvement in HR to 90s. HR went back into 150s around 700am and EKG revealed afib with RVR, which is a new diagnosis for her. She was asymptomatic at the time. Transferred to telemetry and given Diltiazem 10mg IV bolus, then 15mg IV bolus with improvement in HR to the 110s. Crackles on lung exam this morning, CXR ordered after IVF given overnight. Previous TTE performed this admission revealsEF 60-65%, no wall motion abnormalities, no ASD and no valvular pathology or vegetation in setting of S aureus bacteremia. She has not had any chest pain, shortness of breath, fevers, chills, or UTI symptoms since admission. 1. Afib-new onset. Rate controlled with the diltiazem IV. Given dig overnight in the setting of worsening overload and high heart rates associated with this. Will transition to PO now, starting with IR for better titration. TTE WNL this admission. Cont heparin drip pending further recommendations for continued anticoagulation moving forward 2. Hypoxia 2/2 acute fluid overload from acute diastolic heart failure exacerbation-improved after lasix overnight. Repeat CXR pending today. She is not coughing and has no fevers or chills. She was starting to develop crackles on exam yesterday and progressed with this throughout the day and night yesterday per her daughter who was with her. The CXR does not show an acute infiltrate but does show congestion. I do not think she has an HAP at this time. Continuing with the Lasix and holding salt tabs and extra IVF at this time. IV abx will be deescalated and IV dilt changed to PO dilt, as well. Cont oxygen for support as needed. 3. Sepsis 2/2 L hip septic arthritis-resuscitated. Aspiration under fluoroscopy was unsuccessful. Per PM, pt is not a candidate for an injection in setting of acute infection. PO pain meds were adjusted for better relief. 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 Will have her followup as outpatient for this. At this time, she is not ill- appearing and her L hip pain is at baseline, which is not to say it is better, but is not excruciating at this time. Will stop Vanc and Zosyn and will start her on Cefazolin 2gm IV [id number] was discussed with Dr. Fletcher. Also, stopping Vanc will prevent further poss renal toxicity and is not needed in setting of MSSA. 4. Staph aureus Bacteremia-changing abx as above. No vegetations on initial TTE. Pt is not ill-appearing with any fevers or chills. 5. Hyponatremia-improved off HCTZ. Nephro stopped salt tabs. Trend PRP. 6. Chronic pain in L hip and back-s/p epidural injection in back two months ago. She is currently on gabapentin, pamelor, dilaudid PO, tramadol PO and morphine IV for breakthrough pain. 7. Anemia-chronic, no indication for transfusion at this time. 8. HTN-controlled, lisinopril held in setting of RASHEL and HCTZ held in setting of low Na. 9. Klebsiella [id number], received several days of abx at this time, changing abx as above. Asymptomatic. 10. Leukocytosis-improved. 11. RASHEL-poss 2/2 NSAID use in setting of ACEI and poss dehydration/prerenal azotemia in sepsis. Holding Lisinopril and NSAIDs at this time. Nephro is aware. DVT proph-heparin drip Full Code Dispo-transferred to telemetry Amina Gr DO [facility] Hospitalist Consultants: ID ORTHO NEPHRO CARDS Current Inpatient Medications: Current Inpatient Medications Medications (Trade) Dose Ordered Sig/Viviane Route Start Time Stop Time Status Last Admin Dose Admin Acetaminophen (Tylenol Tab) 650 mg Q4H PRN PO 09/27/16 00:30 10/27/16 00:29 Lidocaine (Lidoderm Patch 5%) 1 patch QAM TD 09/28/16 09:00 10/28/16 08:59 09/30/16 08:39 1 PATCH Vancomycin HCl (Consult) 1 ea UD PRN N/A 09/27/16 01:00 10/27/16 00:59 Ondansetron HCl (Zofran Inj) 4 mg Q6H PRN IV 09/27/16 00:30 10/27/16 00:29 09/27/16 20:45 4 MG Lorazepam (Ativan Inj) 0.5 mg Q4H PRN IV 09/27/16 00:30 10/27/16 00:29 09/29/16 12:03 0.5 MG Miscellaneous (Remove Lidoderm Patch) 1 ea DAILY@21 N/A 09/27/16 14:00 10/27/16 13:59 09/28/16 20:23 1 EA Gabapentin (Neurontin Cap) 300 mg HS PO 09/27/16 21:00 10/27/16 20:59 09/29/16 21:01 300 MG Multivitamins/ Minerals (Multivitamin W/ Minerals Tab) 1 tab DAILY PO 09/27/16 09:00 10/27/16 08:59 09/30/16 08:38 1 TAB Tramadol HCl (Ultram Tab) pain not relieved by ibupropen/tylenol Q6H PRN PO 09/27/16 00:30 10/27/16 00:29 09/28/16 03:39 50 MG Travoprost (Travatan Z) 1 drops HS OPB 09/27/16 21:00 10/27/16 20:59 09/29/16 21:00 1 DROPS Docusate Sodium (coLACE CAP) 100 mg DAILY PO 09/28/16 09:00 10/28/16 08:59 09/30/16 08:38 100 MG Lorazepam 0.5 mg/ Syringe 1 ml @ 1 mls/min Q4H PRN IV 09/27/16 01:15 10/27/16 01:14 Vancomycin HCl 1050 mg/Sodium Chloride 271 ml @ 125 mls/hr Q18H IV 09/27/16 14:00 10/06/16 22:59 Future Hold 09/29/16 20:38 125 MLS/HR Morphine Sulfate (MoRPHine SULFATE INJ) 4 mg Q4HWA PRN IV 09/27/16 15:45 10/11/16 15:44 09/29/16 21:09 4 MG Famotidine (Pepcid Tab) 20 mg DAILY PRN PO 09/27/16 22:45 10/27/16 22:44 Gabapentin (Neurontin Cap) 300 mg BID@0900,1400 PO 09/29/16 09:00 10/27/16 08:59 09/30/16 08:38 300 MG Nortriptyline HCl (Pamelor Cap) 25 mg HS PO 09/28/16 21:00 10/28/16 20:59 09/29/16 21:01 25 MG Hydromorphone HCl (Dilaudid Tab) 2 mg Q6H PRN PO 09/28/16 15:00 10/12/16 14:59 09/29/16 11:00 2 MG Heparin Sodium/ Dextrose 500 ml @ 23 mls/hr [id number] PRN IV 09/29/16 09:45 10/29/16 09:44 09/30/16 09:40 23 MLS/HR Diltiazem HCl 125 mg/Dextrose 125 ml @ 0 mls/hr Q0M PRN IV 09/29/16 09:45 10/29/16 09:44 09/30/16 04:38 5 MLS/HR Ipratropium [place] (Atrovent 0.02% 0.5MG/2.5ML Neb) 0.5 mg Q4H PRN INH 09/29/16 22:45 10/29/16 22:44 Levalbuterol (Xopenex 1.25MG/ 0.5ML Neb) 1.25 mg Q4H PRN INH 09/29/16 22:45 10/29/16 22:44 Piperacillin Sod/ Tazobactam Sod (Consult) 1 ea UD PRN N/A 09/29/16 23:00 10/29/16 22:59 Piperacillin Sod/ Tazobactam Sod 3.375 gm/Dextrose 115 ml @ 28.75 mls/ hr Q8H IV 09/30/16 04:00 10/07/16 03:59 09/30/16 04:55 28.75 MLS/HR Guaifenesin (Mucinex Contr Rel Tab) 600 mg Q12 PO 09/30/16 09:00 10/30/16 08:59 09/30/16 08:38 600 MG Furosemide 40 mg/ Syringe 4 ml @ 4 mls/min DAILY IV 09/30/16 09:00 10/30/16 08:59 09/30/16 09:43 4 MLS/MIN
[2016-09-30] MEDS ORDERED: CEFAZOLIN IV 2,000 MG/60 ML D5W IV SCH (14:00)
--- NOTE | 2016-09-30 14:22 | DIAGNOSTIC IMAGING REPORT ---
CHEST ONE VIEW PORTABLE HISTORY: Short of breath. COMPARISON: Chest 09/29/2016. FINDINGS: No change in the right-sided diaphragmatic hernia containing a loop of colon. Bibasilar linear densities suggestive of subsegmental atelectasis. The upper lungs and are clear. No pneumothorax. No evidence for pulmonary edema. Interstitial thickening has improved. The heart is stable in size. IMPRESSION: 1. Improvement/resolution of the interstitial thickening. 2. Bibasilar linear densities. This favors subsegmental atelectasis. 3. Stable right-sided diaphragmatic hernia. Electronically signed by: Lauro Dockery M.D. 09/30/2016 2:21 PM Dictated Date/Time: 09/30/2016 2:19 PM
[2016-09-30] MEDS ORDERED: ANCEF PHARMACY CONSULT IN PROGRESS PRN (14:45)
[2016-09-30] MEDS: DILTIAZEM HCL 60 MG TAB PO SCH ×2 (14:50→21:37)
[2016-09-30] MEDS ORDERED: CEFAZOLIN SOD 2000 MG in DEXTROSE 5% 50ML IV SCH (15:00)
[2016-09-30 17:00] LABS: PARTIAL THROMBOPLASTIN RATIO 1.6
[2016-09-30] MEDS ORDERED: POTASSIUM CHLORIDE 20 MEQ TABCR PO ONE (17:15)
[2016-09-30] MEDS ORDERED: BISACODYL 10 MG SUPP PR PRN (18:15)
[2016-09-30] MEDS ORDERED: POLYETHYLENE (MIRALAX) 17 GM PACK PO PRN (18:15)
[2016-09-30 20:07] LABS: BUN/CREATININE RATIO 18.7 (10-20); CALCIUM 9.5 mg/dl (8.5-10.1); CREATININE 2.2 mg/dl (0.60-1.20); POTASSIUM 3.4 mmol/L (3.5-5.1)
[2016-09-30] MEDS: NORTRIPTYLINE HCL 25 MG CAP PO SCH (21:36)
[2016-09-30] MEDS: TRAVOPROST Z 0.004% OPH SOLN 2.5 ML BTL OPB SCH (21:37)
[2016-09-30] MEDS: HYDROmorphone HCL 2 MG TAB PO PRN (23:48)
[2016-10-01] VITALS (7 sets, daily range): BP systolic 111–132; BP diastolic 59–74; PULSE 75–100; TEMP 36.4–36.8; O2SAT 95–98
[2016-10-01 00:06] LABS: PARTIAL THROMBOPLASTIN RATIO 1.8
[2016-10-01] MEDS ORDERED: HEPARIN IV BOLUS 2,000 UNIT in SYRINGE 0 ML IV STA (01:14)
[2016-10-01] MEDS: CEFAZOLIN IV 1,000 MG in DEXTROSE 5% 50ML 50 ML IV SCH ×2 (04:28→16:46)
[2016-10-01] MEDS: HEPARIN 25,000 UNIT/500ML D5W 500 ML IV PRN (05:49)
[2016-10-01 07:21] LABS: HEMATOCRIT 29.7 % (37-47); MEAN CELL VOLUME 88.1 fL (80-100); MEAN CORPUSCULAR HEMOGLOBIN 31.2 pg (25-34); MEAN CORPUSCULAR HGB CONC 35.4 g/dl (32-36); PLATELET COUNT 250 K/uL (130-400); RED BLOOD COUNT 3.37 M/uL (4.2-5.4); WHITE BLOOD COUNT 18.05 K/uL (4.8-10.8)
[2016-10-01 07:41] LABS: PARTIAL THROMBOPLASTIN RATIO 2.2
[2016-10-01 07:46] LABS: CALCIUM 9.2 mg/dl (8.5-10.1); CREATININE 2.2 mg/dl (0.60-1.20); POTASSIUM 3.6 mmol/L (3.5-5.1)
[2016-10-01] MEDS: FUROSEMIDE INJ 40 MG in SYRINGE 0 ML IV SCH (07:50)
[2016-10-01] MEDS: DOCUSATE SODIUM 100 MG CAP PO SCH (07:50)
[2016-10-01] MEDS: GUAIFENESIN 600 MG TABCR PO SCH ×2 (07:50→20:44)
[2016-10-01] MEDS: GABAPENTIN 300 MG CAP PO SCH ×3 (07:51→20:43)
[2016-10-01] MEDS: DILTIAZEM HCL 60 MG TAB PO SCH ×2 (07:51→14:00)
[2016-10-01] MEDS: CEROVITE ADV FORMULA TAB PO SCH (07:52)
[2016-10-01] MEDS: LIDODERM (LIDOCAINE) PATCH 5% TD SCH (07:54)
--- NOTE | 2016-10-01 08:15 | Nephrology Progress Note ---
Nephrology Progress Note Date of Service: Oct 01, 2016. Subjective 70 yo female with chronic degenerative disease of the hip and has uti and bacteremia and found to have hyponatremia. then developed afib requiring diltiazem. pt then acute worsening sob. pt breathing easier today but still feels difficulty breathing. appetite slowly improving. on heparin and dilt. Objective Date Time Temp Pulse Resp B/P (MAP) Pulse Ox O2 Delivery O2 Flow Rate FiO2 10/01/16 08:06 36.6 79 14 129/63 (85) 98 Room Air 10/01/16 04:00 Oxymask 2.5 10/01/16 03:42 36.4 75 18 115/65 (82) 97 Oxymask 2.0 10/01/16 00:00 36.7 83 20 111/59 (76) 95 Nasal Cannula 2.0 09/30/16 23:59 Oxymask 2.5 09/30/16 20:00 Oxymask 2.5 09/30/16 19:29 36.7 83 16 113/62 (79) 98 Oxymask 2.5 09/30/16 15:50 98 Oxymask 2.5 09/30/16 15:17 36.8 86 18 113/75 (88) 91 Oxymask 2.5 09/30/16 12:00 94 Oxymask 2.5 09/30/16 12:00 36.6 94 20 99/70 (80) 92 2.5 Physical Exam: General-[id number] Eyes-no scleral icterus ENT-mmm Neck-supple Lungs-decreased at right base Heart-irregularly irregular, mild tachy Abdomen-bs+ s/nt/nd Extremities-no c/c/e Neuro-nonfocal Current Inpatient Medications Medications (Trade) Dose Ordered Sig/Viviane Route Start Time Stop Time Status Last Admin Dose Admin Acetaminophen (Tylenol Tab) 650 mg Q4H PRN PO 09/27/16 00:30 10/27/16 00:29 Lidocaine (Lidoderm Patch 5%) 1 patch QAM TD 09/28/16 09:00 10/28/16 08:59 10/01/16 07:54 1 PATCH Ondansetron HCl (Zofran Inj) 4 mg Q6H PRN IV 09/27/16 00:30 10/27/16 00:29 09/27/16 20:45 4 MG Lorazepam (Ativan Inj) 0.5 mg Q4H PRN IV 09/27/16 00:30 10/27/16 00:29 09/29/16 12:03 0.5 MG Miscellaneous (Remove Lidoderm Patch) 1 ea DAILY@21 N/A 09/27/16 14:00 10/27/16 13:59 09/28/16 20:23 1 EA Gabapentin (Neurontin Cap) 300 mg HS PO 09/27/16 21:00 10/27/16 20:59 09/30/16 21:36 300 MG Multivitamins/ Minerals (Multivitamin W/ Minerals Tab) 1 tab DAILY PO 09/27/16 09:00 10/27/16 08:59 10/01/16 07:52 1 TAB Tramadol HCl (Ultram Tab) pain not relieved by ibupropen/tylenol Q6H PRN PO 09/27/16 00:30 10/27/16 00:29 09/28/16 03:39 50 MG Travoprost (Travatan Z) 1 drops HS OPB 09/27/16 21:00 10/27/16 20:59 09/30/16 21:37 1 DROPS Docusate Sodium (coLACE CAP) 100 mg DAILY PO 09/28/16 09:00 10/28/16 08:59 10/01/16 07:50 100 MG Lorazepam 0.5 mg/ Syringe 1 ml @ 1 mls/min Q4H PRN IV 09/27/16 01:15 10/27/16 01:14 Morphine Sulfate (MoRPHine SULFATE INJ) 4 mg Q4HWA PRN IV 09/27/16 15:45 10/11/16 15:44 09/29/16 21:09 4 MG Famotidine (Pepcid Tab) 20 mg DAILY PRN PO 09/27/16 22:45 10/27/16 22:44 Gabapentin (Neurontin Cap) 300 mg BID@0900,1400 PO 09/29/16 09:00 10/27/16 08:59 10/01/16 07:51 300 MG Nortriptyline HCl (Pamelor Cap) 25 mg HS PO 09/28/16 21:00 10/28/16 20:59 09/30/16 21:36 25 MG Hydromorphone HCl (Dilaudid Tab) 2 mg Q6H PRN PO 09/28/16 15:00 10/12/16 14:59 09/30/16 23:48 2 MG Heparin Sodium/ Dextrose 500 ml @ 27 mls/hr [id number] PRN IV 09/29/16 09:45 10/29/16 09:44 10/01/16 05:49 27 MLS/HR Ipratropium [place] (Atrovent 0.02% 0.5MG/2.5ML Neb) 0.5 mg Q4H PRN INH 09/29/16 22:45 10/29/16 22:44 Levalbuterol (Xopenex 1.25MG/ 0.5ML Neb) 1.25 mg Q4H PRN INH 09/29/16 22:45 10/29/16 22:44 Guaifenesin (Mucinex Contr Rel Tab) 600 mg Q12 PO 09/30/16 09:00 10/30/16 08:59 10/01/16 07:50 600 MG Furosemide 40 mg/ Syringe 4 ml @ 4 mls/min DAILY IV 09/30/16 09:00 10/30/16 08:59 10/01/16 07:50 4 MLS/MIN Diltiazem HCl (Cardizem Tab) 60 mg TID PO 09/30/16 14:00 10/30/16 13:59 10/01/16 07:51 60 MG Miscellaneous Information 1 ea UD PRN N/A 09/30/16 14:45 10/30/16 14:44 Polyethylene (Miralax Powder Packet) 17 gm Q24H PRN PO 09/30/16 18:15 10/30/16 18:14 Bisacodyl (Dulcolax Supp) 10 mg Q24H PRN VA 09/30/16 18:15 10/30/16 18:14 Cefazolin Sodium 1000 mg/Dextrose 55 ml @ 110 mls/hr Q12H IV 10/01/16 04:00 10/11/16 03:59 10/01/16 04:28 110 MLS/HR Last 24 Hours Test 09/30/16 13:12 09/30/16 15:11 09/30/16 19:27 09/30/16 23:28 Vancomycin Level Trough 23.5 mcg/ml Activated Partial Thromboplast Time 41.6 SECONDS 46.8 SECONDS Partial Thromboplastin Ratio 1.6 1.8 Sodium Level 130 mmol/L Potassium Level 3.4 mmol/L Chloride Level 95 mmol/L Carbon Dioxide Level 22 mmol/L Anion Gap 13.0 mmol/L Blood Urea Nitrogen 41 mg/dl Creatinine 2.20 mg/dl Est Creatinine Clear Calc Drug Dose 22.7 ml/min Estimated GFR () 25.7 Estimated GFR (Non- 22.1 BUN/Creatinine Ratio 18.7 Random Glucose 128 mg/dl Calcium Level 9.5 mg/dl Pro-B-Type Natriuretic Peptide 63370 pg/ml Test 10/01/16 04:44 10/01/16 07:03 White Blood Count 18.05 K/uL Red Blood Count 3.37 M/uL Hemoglobin 10.5 g/dL Hematocrit 29.7 % Mean Corpuscular Volume 88.1 fL Mean Corpuscular Hemoglobin 31.2 pg Mean Corpuscular Hemoglobin Concent 35.4 g/dl RDW Standard Deviation 47.4 fL RDW Coefficient of Variation 14.5 % Platelet Count 250 K/uL Mean Platelet Volume 9.0 fL Activated Partial Thromboplast Time 57.6 SECONDS Partial Thromboplastin Ratio 2.2 Sodium Level 129 mmol/L Potassium Level 3.6 mmol/L Chloride Level 96 mmol/L Carbon Dioxide Level 23 mmol/L Anion Gap 10.0 mmol/L Blood Urea Nitrogen 44 mg/dl Creatinine 2.20 mg/dl Est Creatinine Clear Calc Drug Dose 22.7 ml/min Estimated GFR () 25.7 Estimated GFR (Non- 22.1 BUN/Creatinine Ratio 20.0 Random Glucose 129 mg/dl Calcium Level 9.2 mg/dl Magnesium Level 2.0 mg/dl Assessment & Plan hyponatremia-initially thought patient had siadh from chronic pain, was on salt tabs and fluid restriction. pt now fluid overloaded. elevated proBNP. off salt tabs. for now trying to optimize lungs. continue lasix. sodium levels stable at 129 to 130 range. [id number] from nsaid with afib. creatinine has been trending up and has had a complicated hospital course with degenerative hip disease/uti/ bacteremia/hyponatremia/sylvia/afib/and now feel pt is fluid overloaded with an elevated pro-bnp on iv lasix. chest xray though does not show pulmonary edema. off vancomycin. hoping creatinine eventually peaks and starts to trend down. no role for dialysis at this time. continue to try to optimize lungs and treat underlying infections. continue the lasix.
--- NOTE | 2016-10-01 09:56 | PROGRESS NOTE ---
DATE: 10/01/2016 FOLLOWUP VISIT SUBJECTIVE: The patient is a 70-year-old female who was admitted with a Staph aureus bacteremia as well as a Klebsiella UTI. The patient was started on antibiotics by infectious disease. Her last 4 blood cultures have been negative. She had an echocardiogram completed, which was a very good study. The patient is a thin woman, so the echo imaging windows were good. There was no evidence of valvular vegetation or other findings that would suggest endocarditis on that study. She has remained afebrile, but continues to have white count elevation. We were asked to see her in regard to atrial fibrillation and RVR. Her heart rates have been controlled on diltiazem. She continues on IV heparin. She has been given IV diuretics on occasion due to volume overload, but overall has been hemodynamically stable. She remains in persistent atrial fibrillation with controlled heart rates. OBJECTIVE: GENERAL: She is alert and oriented in no acute distress. VITAL SIGNS: Blood pressure is 130/60. Pulse is irregular at 80 beats per minute. She is afebrile. HEENT: She is normocephalic. Pupils are equal and reactive to light. Extraocular muscles are intact bilaterally. NECK: The neck veins are flat. Carotids have good upstrokes bilaterally without bruits. Thyroid is nonpalpable. RESPIRATORY: Breath sounds equal bilaterally and clear to auscultation. CARDIOVASCULAR: Heart has an irregular rhythm. There are no cardiac rubs or murmurs. GASTROINTESTINAL: Abdomen is soft and nontender without organomegaly. EXTREMITIES: Free of edema, digit clubbing, or cyanosis. NEUROLOGIC: Grossly intact. SKIN: Warm to touch. LYMPH NODES: Negative to palpation. IMPRESSION: 1. Persistent atrial fibrillation. 2. Staph bacteremia, thought to be secondary to possible septic hip. 3. Klebsiella urinary tract infection. RECOMMENDATIONS: The patient as outlined above remains clinically stable. I would continue the diltiazem and heparin at present. At some point, we will have to switch her over to oral anticoagulant. We will await infectious disease recommendations regarding further imaging.
--- NOTE | 2016-10-01 10:54 | Progress Note ---
Subjective Date of Service: Oct 01, 2016. Subjective Pt evaluation today including: conversation w/ patient, physical exam, chart review, lab review pt seen in follow up, remains in afib, cardio following. no fevers/chills. tolerating abx. had some sylvia and was changed to ancef yesterday, vanco level over weekend increased to 23. tolerating ancef. Hip pain improved, states no plan for surgery at this point due to infection. repeat blood cultures 09/28, ngtd. echo negative for veg. No abd pain, no n/v/d. all remaining ros reviewed and are negative. Problem List Medical Problems: (1) Abnormal white blood cell count Status: Acute (2) Effusion, left hip Status: Acute (3) Fall Status: Acute (4) Fall Status: Acute (5) Hyponatremia Status: Acute (6) Left hip pain Status: Acute (7) Lumbar contusion Status: Acute (8) Lumbar contusion Status: Acute (9) Pelvic fracture Status: Acute (10) Pelvic fracture Status: Acute (11) UTI (urinary tract infection) Status: Acute Objective Vital Signs Date Time Temp Pulse Resp B/P (MAP) Pulse Ox O2 Delivery O2 Flow Rate FiO2 10/01/16 08:06 36.6 79 14 129/63 (85) 98 Room Air 10/01/16 08:00 Oxymask 2.0 Nasal Cannula 10/01/16 04:00 Oxymask 2.5 10/01/16 03:42 36.4 75 18 115/65 (82) 97 Oxymask 2.0 10/01/16 00:00 36.7 83 20 111/59 (76) 95 Nasal Cannula 2.0 09/30/16 23:59 Oxymask 2.5 09/30/16 20:00 Oxymask 2.5 09/30/16 19:29 36.7 83 16 113/62 (79) 98 Oxymask 2.5 09/30/16 15:50 98 Oxymask 2.5 09/30/16 15:17 36.8 86 18 113/75 (88) 91 Oxymask 2.5 09/30/16 12:00 94 Oxymask 2.5 09/30/16 12:00 36.6 94 20 99/70 (80) 92 2.5 Physical Exam General Appearance: WD/WN, no apparent distress Eyes: normal inspection, EOMI Neck: supple Respiratory/Chest: lungs clear, normal breath sounds, no respiratory distress Cardiovascular: no edema, + irregularly irregular Abdomen: non tender, soft Extremities: non-tender, normal inspection, no pedal edema Neurologic/Psychiatric: alert, oriented x 3 Skin: normal color, warm/dry, no rash Laboratory Results Item Value Date Time Blood Culture - Final Complete 09/26/16 2313 Blood Staphylococcus Aureus Blood Culture - Final Complete 09/26/16 2319 Blood Staphylococcus Aureus Urine Culture - Final Complete 09/26/16 2320 Urine , Clean Catch Klebsiella Pneumoniae Blood Culture - Preliminary Resulted 09/28/16 1546 Blood NO GROWTH TO DATE. Blood Culture - Preliminary Resulted 09/28/16 1551 Blood NO GROWTH TO DATE. Last 24 Hours Test 09/30/16 13:12 09/30/16 15:11 09/30/16 19:27 09/30/16 23:28 Vancomycin Level Trough 23.5 mcg/ml Activated Partial Thromboplast Time 41.6 SECONDS 46.8 SECONDS Partial Thromboplastin Ratio 1.6 1.8 Sodium Level 130 mmol/L Potassium Level 3.4 mmol/L Chloride Level 95 mmol/L Carbon Dioxide Level 22 mmol/L Anion Gap 13.0 mmol/L Blood Urea Nitrogen 41 mg/dl Creatinine 2.20 mg/dl Est Creatinine Clear Calc Drug Dose 22.7 ml/min Estimated GFR () 25.7 Estimated GFR (Non- 22.1 BUN/Creatinine Ratio 18.7 Random Glucose 128 mg/dl Calcium Level 9.5 mg/dl Pro-B-Type Natriuretic Peptide 46555 pg/ml Test 10/01/16 04:44 10/01/16 07:03 White Blood Count 18.05 K/uL Red Blood Count 3.37 M/uL Hemoglobin 10.5 g/dL Hematocrit 29.7 % Mean Corpuscular Volume 88.1 fL Mean Corpuscular Hemoglobin 31.2 pg Mean Corpuscular Hemoglobin Concent 35.4 g/dl RDW Standard Deviation 47.4 fL RDW Coefficient of Variation 14.5 % Platelet Count 250 K/uL Mean Platelet Volume 9.0 fL Activated Partial Thromboplast Time 57.6 SECONDS Partial Thromboplastin Ratio 2.2 Sodium Level 129 mmol/L Potassium Level 3.6 mmol/L Chloride Level 96 mmol/L Carbon Dioxide Level 23 mmol/L Anion Gap 10.0 mmol/L Blood Urea Nitrogen 44 mg/dl Creatinine 2.20 mg/dl Est Creatinine Clear Calc Drug Dose 22.7 ml/min Estimated GFR () 25.7 Estimated GFR (Non- 22.1 BUN/Creatinine Ratio 20.0 Random Glucose 129 mg/dl Calcium Level 9.2 mg/dl Magnesium Level 2.0 mg/dl Assessment and Plan (1) Staphylococcus aureus septicemia Assessment & Plan: repeat blood cultures negative, ok for picc from ID standpoint. pt unclear if she will be d/c to rehab. she can continue on ancef however, if she is to be d/c home and would prefer once daily dosing, she could be changed to ctx 2g daily. will need 6 weeks from first negative culture, tentative stop date 11/09. Will need weekly cbc, cmp, esr while on abx. can follow with ID as well post d/c.
--- NOTE | 2016-10-01 17:23 | DIAGNOSTIC IMAGING REPORT ---
CHEST ONE VIEW PORTABLE CLINICAL HISTORY: PICC LINE PLACEMENT TO RIGHT ARM line position COMPARISON STUDY: 09/30/2016 FINDINGS: Placement of right-sided PICC catheter in superior vena cava. No evidence for pneumothorax. IMPRESSION: PICC catheter placed in the superior vena cava. No evidence pneumothorax. The above report was generated using voice recognition software. It may contain grammatical, syntax or spelling errors. Electronically signed by: Trip Leone M.D. 10/01/2016 5:21 PM Dictated Date/Time: 10/01/2016 5:21 PM
[2016-10-01] MEDS ORDERED: WARFARIN SOD 5 MG TAB PO ONE (17:30)
--- NOTE | 2016-10-01 17:50 | Progress Note ---
Medicine Progress Note Date & Time of Visit: Oct 01, 2016 at 14:33. Subjective 70 yo F presents with acute L hip septic arthritis, now with MSSA bacteremia and zee-sensitive Klebsiella UTI. Subsequently went into afib with RVR on 09/28, which was a new diagnosis for her. Overnight prior to afib seen on EKG she was tachy into the 130s, and was thought to be dry. Given 1L IVF with improvement in HR to 90s. HR went back into 150s around 700am and EKG revealed afib with RVR. She was asymptomatic at the time. Transferred to telemetry and given Diltiazem 10mg IV bolus, then 15mg IV bolus with improvement in HR to the 110s. Became fluid overloaded and IVF/salt tabs stopped. Began diuresis with Lasix with good result. Previous TTE performed this admission reveals EF 60-65%, no wall motion abnormalities, no ASD and no valvular pathology or vegetation in setting of S aureus bacteremia. She denies any CP, SOB, coughing, fevers, chills or other symptoms today She states her L hip pain is controlled and is worse at night Tolerating PO Decreased ambulatory capability from baseline-dispo to rehab We discussed coumadin for afib and options moving forward Her dilt PO was changed to long-acting PICC consent obtained Objective Last 8 Hrs Date Time Temp Pulse Resp B/P (MAP) Pulse Ox O2 Delivery O2 Flow Rate FiO2 10/01/16 12:00 Oxymask 2.0 Nasal Cannula 10/01/16 11:45 36.6 94 18 116/72 (87) 97 Room Air 10/01/16 08:06 36.6 79 14 129/63 (85) 98 Room Air 10/01/16 08:00 Oxymask 2.0 Nasal Cannula Physical Exam: GEN: WNWD, in no acute distress, alert and appropriate, not ill-appearing, sitting in bedside chair on nasal canula, not working to breathe. HEENT: NC/AT, normal sclerae, MMM CARDIO: reg rate, irregular rhythm, S1/2 heard without m/g/r LUNGS: CTAB, no wheezing or rales. ABD: soft, non-tender, non-distended, no rebound or guarding, +BS EXTREMITY: RP and DP palpable 2+ bilat, no LE swelling or edema, extremities are warm and well-perfused NEURO: CN 2-12 grossly intact MUSC: moves all extremities equally, no gross focal deficits. SKIN: warm and dry Laboratory Results: 10/01/16 07:03 10/01/16 07:03 Test 09/26/16 20:15 09/26/16 23:19 09/26/16 23:20 09/26/16 23:30 Total Bilirubin 0.7 mg/dl (0.2-1) Direct Bilirubin 0.2 mg/dl (0-0.2) Aspartate Amino Transf (AST/SGOT) 31 U/L (15-37) Alanine Aminotransferase (ALT/SGPT) 33 U/L (12-78) Alkaline Phosphatase 72 U/L (45-117) Total Protein 7.3 gm/dl (6.4-8.2) Albumin 3.8 gm/dl (3.4-5.0) Lipase 80 U/L (73-393) Thyroid Stimulating Hormone (TSH) 2.290 uIu/ml (0.300-4.500) Lyme Disease IgG Antibody NEG (NEG) Lyme Disease IgM Antibody NEG (NEG) Lactic Acid Level 1.4 mmol/L (0.4-2.0) Urine Color YELLOW Urine Appearance CLOUDY (CLEAR) Urine pH 5.5 (4.5-7.5) Urine Specific Luck 1.015 (1.000-1.030) Urine Protein NEG (NEG) Urine Glucose (UA) NEG (NEG) Urine Ketones TRACE (NEG) Urine Occult Blood TRACE (NEG) Urine Nitrite NEG (NEG) Urine Bilirubin NEG (NEG) Urine Urobilinogen NEG (NEG) Urine Leukocyte Esterase MODERATE (NEG) Urine WBC (Auto) >30 /hpf (0-5) Urine RBC (Auto) 0-4 /hpf (0-4) Urine Hyaline Casts (Auto) 5-10 /lpf (0-5) Urine Epithelial Cells (Auto) 5-10 /lpf (0-5) Urine Bacteria (Auto) 4+ (NEG) Urine Random Sodium 35 mEq/L Test 09/27/16 01:34 09/28/16 06:19 09/28/16 17:35 09/29/16 06:33 Ethyl Alcohol mg/dL < 3.0 mg/dl (0-3) Dohle Bodies 1+ Osmolality 257 mOsm/kg (280-300) Urine Osmolality 433 mOms/kg (500-800) Erythrocyte Sedimentation Rate 63 mm/hr (0-21) C-Reactive Protein 34.60 mg/dl (0-0.29) Test 09/29/16 09:02 09/29/16 23:32 09/30/16 06:13 09/30/16 13:12 Prothrombin Time 10.5 SECONDS (9.0-12.0) Prothromb Time International Ratio 1.0 (0.9-1.1) Arterial Blood pH 7.42 (7.35-7.45) Arterial Blood Partial Pressure CO2 30 mmHg (35-46) Arterial Blood Partial Pressure O2 72 mm/Hg (80-95) Arterial Blood HCO3 19 mmol/L (19-24) Arterial Blood Oxygen Saturation 92.8 % (90-95) Arterial Blood Base Excess -4.9 mEq/L (-9-1.8) Arterial Blood Gas Delivery 2.5 L Hipolito Test POS (POS) Immature Granulocyte % (Auto) 0.5 % White Blood Count 16.64 K/uL (4.8-10.8) Red Blood Count 3.28 M/uL (4.2-5.4) Hemoglobin 9.7 g/dL (12.0-16.0) Hematocrit 29.3 % (37-47) Mean Corpuscular Volume 89.3 fL (80-100) Mean Corpuscular Hemoglobin 29.6 pg (25-34) Mean Corpuscular Hemoglobin Concent 33.1 g/dl (32-36) Platelet Count 189 K/uL (130-400) Mean Platelet Volume 9.0 fL (7.4-10.4) Neutrophils (%) (Auto) 93.4 % Lymphocytes (%) (Auto) 3.1 % Monocytes (%) (Auto) 2.8 % Eosinophils (%) (Auto) 0.1 % Basophils (%) (Auto) 0.1 % Neutrophils # (Auto) 15.56 K/uL (1.4-6.5) Lymphocytes # (Auto) 0.52 K/uL (1.2-3.4) Monocytes # (Auto) 0.46 K/uL (0.11-0.59) Eosinophils # (Auto) 0.01 K/uL (0-0.5) Basophils # (Auto) 0.01 K/uL (0-0.2) Immature Granulocyte # (Auto) 0.08 K/uL (0.00-0.02) Vancomycin Level Trough 23.5 mcg/ml (SEE COMMENT) Test 09/30/16 19:27 10/01/16 07:03 Pro-B-Type Natriuretic Peptide 73327 pg/ml (0-900) Red Blood Count 3.37 M/uL (4.2-5.4) Mean Corpuscular Volume 88.1 fL (80-100) Mean Corpuscular Hemoglobin 31.2 pg (25-34) Mean Corpuscular Hemoglobin Concent 35.4 g/dl (32-36) RDW Standard Deviation 47.4 fL (36.4-46.3) RDW Coefficient of Variation 14.5 % (11.5-14.5) Mean Platelet Volume 9.0 fL (7.4-10.4) Activated Partial Thromboplast Time 57.6 SECONDS (21.0-31.0) Partial Thromboplastin Ratio 2.2 Anion Gap 10.0 mmol/L (3-11) Est Creatinine Clear Calc Drug Dose 22.7 ml/min Estimated GFR () 25.7 Estimated GFR (Non- 22.1 BUN/Creatinine Ratio 20.0 (10-20) Calcium Level 9.2 mg/dl (8.5-10.1) Magnesium Level 2.0 mg/dl (1.8-2.4) Date/Time Source Procedure Growth Status 09/29/16 23:32 Blood Blood Culture - Preliminary NO GROWTH TO DATE. Resulted 09/27/16 00:00 Nasal MRSA DNA Surveillance Screen - Final Specimen Negative for MRSA by DNA Probe Complete 09/27/16 03:30 Urine , Clean Catch Urine Culture - Final Klebsiella Pneumoniae Complete Last 24 Hours Test 09/30/16 15:11 09/30/16 19:27 09/30/16 23:28 10/01/16 07:03 Activated Partial Thromboplast Time 41.6 SECONDS 46.8 SECONDS 57.6 SECONDS Partial Thromboplastin Ratio 1.6 1.8 2.2 Sodium Level 130 mmol/L 129 mmol/L Potassium Level 3.4 mmol/L 3.6 mmol/L Chloride Level 95 mmol/L 96 mmol/L Carbon Dioxide Level 22 mmol/L 23 mmol/L Anion Gap 13.0 mmol/L 10.0 mmol/L Blood Urea Nitrogen 41 mg/dl 44 mg/dl Creatinine 2.20 mg/dl 2.20 mg/dl Est Creatinine Clear Calc Drug Dose 22.7 ml/min 22.7 ml/min Estimated GFR () 25.7 25.7 Estimated GFR (Non- 22.1 22.1 BUN/Creatinine Ratio 18.7 20.0 Random Glucose 128 mg/dl 129 mg/dl Calcium Level 9.5 mg/dl 9.2 mg/dl Pro-B-Type Natriuretic Peptide 93844 pg/ml White Blood Count 18.05 K/uL Red Blood Count 3.37 M/uL Hemoglobin 10.5 g/dL Hematocrit 29.7 % Mean Corpuscular Volume 88.1 fL Mean Corpuscular Hemoglobin 31.2 pg Mean Corpuscular Hemoglobin Concent 35.4 g/dl RDW Standard Deviation 47.4 fL RDW Coefficient of Variation 14.5 % Platelet Count 250 K/uL Mean Platelet Volume 9.0 fL Magnesium Level 2.0 mg/dl Assessment & Plan 70 yo F presents with acute L hip septic arthritis, now with MSSA bacteremia and zee-sensitive Klebsiella UTI. Subsequently went into afib with RVR on 09/28, which was a new diagnosis for her. Overnight prior to afib seen on EKG she was tachy into the 130s, and was thought to be dry. Given 1L IVF with improvement in HR to 90s. HR went back into 150s around 700am and EKG revealed afib with RVR. She was asymptomatic at the time. Transferred to telemetry and given Diltiazem 10mg IV bolus, then 15mg IV bolus with improvement in HR to the 110s. Became fluid overloaded and IVF/salt tabs stopped. Began diuresis with Lasix with good result. Previous TTE performed this admission reveals EF 60-65%, no wall motion abnormalities, no ASD and no valvular pathology or vegetation in setting of S aureus bacteremia. 1. Afib-new onset. Rate controlled with the diltiazem PO TID, will change to Diltiazem CD 120mg PO daily starting in am for once daily dosing. TTE WNL this admission. Cont heparin drip and started coumadin today. Would like to discuss options such as cardioversion once infection has cleared, MAZE, etc with Cardiology team at next available opportunity. 2. Hypoxia 2/2 acute fluid overload from acute diastolic heart failure exacerbation-appears compensated. Improved oxygenation at this point--working to wean O2 as tolerated. No decompensation with deescalation of abx overnight. Will hold any further Lasix at this time. 3. Sepsis 2/2 L hip septic arthritis-resuscitated. Aspiration under fluoroscopy was unsuccessful. Per PM, pt is not a candidate for an injection in setting of acute infection. PO pain meds were adjusted for better relief and are controlling pain. 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 Will have her followup as outpatient for this. Cont Ancef for now with PICC placement and plan for 6 weeks abx moving forward. 4. Staph aureus Bacteremia-changing abx as above. No vegetations on initial TTE. Pt is not ill-appearing with any fevers or chills. 5. RASHEL-worsened creatinine to 2.2 poss 2/2 NSAID use in setting of ACEI. Cont holding Lisinopril and NSAIDs at this time. Appreciate Nephro recs. 6. Chronic pain in L hip and back-s/p epidural injection in back two months ago. She is currently on gabapentin, pamelor, dilaudid PO, tramadol PO and morphine IV for breakthrough pain. 7. Anemia-chronic, no indication for transfusion at this time. 8. HTN-controlled, lisinopril held in setting of RASHEL and HCTZ held in setting of low Na. 9. Klebsiella [id number], received several days of abx at this time, changing abx as above. Asymptomatic. 10. Leukocytosis-elevated to 18K in setting of infection. Not ill appearing. Cont to monitor. 11. Hyponatremia-improved off HCTZ. Nephro stopped salt tabs. Trend PRP. DVT proph-heparin drip/coumadin Full Code Dispo-cont tele, will go to rehab likely 2-3 days, referrals have been placed DO [facility] Hospitalist Consultants: [facility] ORTHO NEPHRO CARDS Current Inpatient Medications: Current Inpatient Medications Medications (Trade) Dose Ordered Sig/Viviane Route Start Time Stop Time Status Last Admin Dose Admin Acetaminophen (Tylenol Tab) 650 mg Q4H PRN PO 09/27/16 00:30 10/27/16 00:29 Lidocaine (Lidoderm Patch 5%) 1 patch QAM TD 09/28/16 09:00 10/28/16 08:59 10/01/16 07:54 1 PATCH Ondansetron HCl (Zofran Inj) 4 mg Q6H PRN IV 09/27/16 00:30 10/27/16 00:29 09/27/16 20:45 4 MG Lorazepam (Ativan Inj) 0.5 mg Q4H PRN IV 09/27/16 00:30 10/27/16 00:29 09/29/16 12:03 0.5 MG Miscellaneous (Remove Lidoderm Patch) 1 ea DAILY@21 N/A 09/27/16 14:00 10/27/16 13:59 09/28/16 20:23 1 EA Gabapentin (Neurontin Cap) 300 mg HS PO 09/27/16 21:00 10/27/16 20:59 09/30/16 21:36 300 MG Multivitamins/ Minerals (Multivitamin W/ Minerals Tab) 1 tab DAILY PO 09/27/16 09:00 10/27/16 08:59 10/01/16 07:52 1 TAB Tramadol HCl (Ultram Tab) pain not relieved by ibupropen/tylenol Q6H PRN PO 09/27/16 00:30 10/27/16 00:29 09/28/16 03:39 50 MG Travoprost (Travatan Z) 1 drops HS OPB 09/27/16 21:00 10/27/16 20:59 09/30/16 21:37 1 DROPS Docusate Sodium (coLACE CAP) 100 mg DAILY PO 09/28/16 09:00 10/28/16 08:59 10/01/16 07:50 100 MG Lorazepam 0.5 mg/ Syringe 1 ml @ 1 mls/min Q4H PRN IV 09/27/16 01:15 10/27/16 01:14 Morphine Sulfate (MoRPHine SULFATE INJ) 4 mg Q4HWA PRN IV 09/27/16 15:45 10/11/16 15:44 09/29/16 21:09 4 MG Famotidine (Pepcid Tab) 20 mg DAILY PRN PO 09/27/16 22:45 10/27/16 22:44 Gabapentin (Neurontin Cap) 300 mg BID@0900,1400 PO 09/29/16 09:00 10/27/16 08:59 10/01/16 14:00 300 MG Nortriptyline HCl (Pamelor Cap) 25 mg HS PO 09/28/16 21:00 10/28/16 20:59 09/30/16 21:36 25 MG Hydromorphone HCl (Dilaudid Tab) 2 mg Q6H PRN PO 09/28/16 15:00 10/12/16 14:59 09/30/16 23:48 2 MG Heparin Sodium/ Dextrose 500 ml @ 27 mls/hr [id number] PRN IV 09/29/16 09:45 10/29/16 09:44 10/01/16 05:49 27 MLS/HR Ipratropium Spencer (Atrovent 0.02% 0.5MG/2.5ML Neb) 0.5 mg Q4H PRN INH 09/29/16 22:45 10/29/16 22:44 Levalbuterol (Xopenex 1.25MG/ 0.5ML Neb) 1.25 mg Q4H PRN INH 09/29/16 22:45 10/29/16 22:44 Guaifenesin (Mucinex Contr Rel Tab) 600 mg Q12 PO 09/30/16 09:00 10/30/16 08:59 10/01/16 07:50 600 MG Furosemide 40 mg/ Syringe 4 ml @ 4 mls/min DAILY IV 09/30/16 09:00 10/30/16 08:59 10/01/16 07:50 4 MLS/MIN Diltiazem HCl (Cardizem Tab) 60 mg TID PO 09/30/16 14:00 10/30/16 13:59 10/01/16 14:00 60 MG Miscellaneous Information 1 ea UD PRN N/A 09/30/16 14:45 10/30/16 14:44 Polyethylene (Miralax Powder Packet) 17 gm Q24H PRN PO 09/30/16 18:15 10/30/16 18:14 Bisacodyl (Dulcolax Supp) 10 mg Q24H PRN AL 09/30/16 18:15 10/30/16 18:14 Cefazolin Sodium 1000 mg/Dextrose 55 ml @ 110 mls/hr Q12H IV 10/01/16 04:00 10/11/16 03:59 10/01/16 04:28 110 MLS/HR
[2016-10-01] MEDS: NORTRIPTYLINE HCL 25 MG CAP PO SCH (20:43)
[2016-10-01] MEDS: TRAVOPROST Z 0.004% OPH SOLN 2.5 ML BTL OPB SCH (20:44)
[2016-10-01] MEDS ORDERED: DILTIAZEM HCL 60 MG TAB PO SCH (21:00)
[2016-10-01] MEDS: HYDROmorphone HCL 2 MG TAB PO PRN (23:18)
[2016-10-02] VITALS (11 sets, daily range): BP systolic 101–147; BP diastolic 73–94; PULSE 16–119; TEMP 36.6–37; O2SAT 95–100
[2016-10-02] MEDS: BENZONATATE 100MG CAP PO PRN ×3 (02:22→19:55)
[2016-10-02] MEDS: CEFAZOLIN IV 1,000 MG in DEXTROSE 5% 50ML 50 ML IV SCH ×2 (04:34→15:44)
[2016-10-02] MEDS: TRAMADOL HCL 50 MG TAB PO PRN (04:36)
[2016-10-02] MEDS: HEPARIN 25,000 UNIT/500ML D5W 500 ML IV PRN ×2 (06:12→22:36)
[2016-10-02 06:19] LABS: MEAN CELL VOLUME 87.2 fL (80-100); MEAN CORPUSCULAR HEMOGLOBIN 30.5 pg (25-34); MEAN PLATELET VOLUME 8.8 fL (7.4-10.4); PLATELET COUNT 306 K/uL (130-400); RED BLOOD COUNT 3.67 M/uL (4.2-5.4)
[2016-10-02 06:36] LABS: INR 1.1 (0.9-1.1); PARTIAL THROMBOPLASTIN RATIO 1.8; PROTHROMBIN TIME (PATIENT) 11.8 SECONDS (9.0-12.0)
[2016-10-02 06:43] LABS: BASO % 0.2 %; BASO ABS # 0.03 K/uL (0-0.2); COMPLETE YES; ECHINOCYTES 1+; EOS % 0.6 %; IG% 6.1 %; LYMPH % 9.3 %; LYMPH ABS # 1.59 K/uL (1.2-3.4); MONO % 8.8 %; TOXIC GRANULATION OCCASIONAL; VACUOLIZATION OCCASIONAL
[2016-10-02 06:45] LABS: BUN/CREATININE RATIO 23.6 (10-20); CALCIUM 8.9 mg/dl (8.5-10.1); CREATININE 2.5 mg/dl (0.60-1.20); MAGNESIUM 1.7 mg/dl (1.8-2.4); POTASSIUM 3.3 mmol/L (3.5-5.1)
--- NOTE | 2016-10-02 07:02 | DIAGNOSTIC IMAGING REPORT ---
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 The heart is normal in size. There is no failure. There is no focal pulmonary consolidation. There are no pleural effusions. The right-sided PICC catheter remains unchanged in position.[ IMPRESSION: No acute findings. Electronically signed by: Reggie Cota M.D. 10/02/2016 7:01 AM Dictated Date/Time: 10/02/2016 7:00 AM
[2016-10-02] MEDS: DOCUSATE SODIUM 100 MG CAP PO SCH (08:10)
[2016-10-02] MEDS: GABAPENTIN 300 MG CAP PO SCH ×3 (08:10→19:54)
[2016-10-02] MEDS: GUAIFENESIN 600 MG TABCR PO SCH ×2 (08:11→19:54)
[2016-10-02] MEDS: CEROVITE ADV FORMULA TAB PO SCH (08:11)
[2016-10-02] MEDS: LIDODERM (LIDOCAINE) PATCH 5% TD SCH ×2 (08:12→10:06)
--- NOTE | 2016-10-02 08:26 | Nephrology Progress Note ---
Nephrology Progress Note Date of Service: Oct 02, 2016. Subjective 70 yo female with chronic degenerative disease of the hip/uti/bacteremia/ hyponatremia/afib/sylvia. pt is breathing easier. more comfortable. Objective Date Time Temp Pulse Resp B/P (MAP) Pulse Ox O2 Delivery O2 Flow Rate FiO2 10/02/16 04:35 36.6 118 20 142/87 (105) 98 Nasal Cannula 10/02/16 04:00 98 Nasal Cannula 2.0 10/02/16 00:16 36.6 115 22 147/94 (111) 95 Nasal Cannula 3.0 10/02/16 00:00 97 Room Air 10/01/16 20:17 36.8 100 20 126/68 (87) 96 Room Air 3.0 10/01/16 20:00 Nasal Cannula 2.0 10/01/16 19:20 94 98 Nasal Cannula 2.0 10/01/16 17:04 92 16 132/74 (93) 98 Nasal Cannula 2.5 10/01/16 16:00 Nasal Cannula 2.0 10/01/16 12:00 Oxymask 2.0 Nasal Cannula 10/01/16 11:45 36.6 94 18 116/72 (87) 97 Room Air Physical Exam: General-aaox3 Eyes-no scleral icterus ENT-mmm Neck-supple Lungs-+expiratory wheeze Heart-irregularly irregular, tachycardia Abdomen-bs+ s/nt/nd Extremities-no c/c/e Neuro-nonfocal Current Inpatient Medications Medications (Trade) Dose Ordered Sig/Viviane Route Start Time Stop Time Status Last Admin Dose Admin Acetaminophen (Tylenol Tab) 650 mg Q4H PRN PO 09/27/16 00:30 10/27/16 00:29 Lidocaine (Lidoderm Patch 5%) 1 patch QAM TD 09/28/16 09:00 10/28/16 08:59 10/02/16 08:12 1 PATCH Ondansetron HCl (Zofran Inj) 4 mg Q6H PRN IV 09/27/16 00:30 10/27/16 00:29 09/27/16 20:45 4 MG Lorazepam (Ativan Inj) 0.5 mg Q4H PRN IV 09/27/16 00:30 10/27/16 00:29 09/29/16 12:03 0.5 MG Miscellaneous (Remove Lidoderm Patch) 1 ea DAILY@21 N/A 09/27/16 14:00 10/27/16 13:59 10/01/16 20:44 1 EA Gabapentin (Neurontin Cap) 300 mg HS PO 09/27/16 21:00 10/27/16 20:59 10/01/16 20:43 300 MG Multivitamins/ Minerals (Multivitamin W/ Minerals Tab) 1 tab DAILY PO 09/27/16 09:00 10/27/16 08:59 10/02/16 08:11 1 TAB Tramadol HCl (Ultram Tab) pain not relieved by ibupropen/tylenol Q6H PRN PO 09/27/16 00:30 10/27/16 00:29 10/02/16 04:36 100 MG Travoprost (Travatan Z) 1 drops HS OPB 09/27/16 21:00 10/27/16 20:59 10/01/16 20:44 1 DROPS Docusate Sodium (coLACE CAP) 100 mg DAILY PO 09/28/16 09:00 10/28/16 08:59 10/02/16 08:10 100 MG Lorazepam 0.5 mg/ Syringe 1 ml @ 1 mls/min Q4H PRN IV 09/27/16 01:15 10/27/16 01:14 Morphine Sulfate (MoRPHine SULFATE INJ) 4 mg Q4HWA PRN IV 09/27/16 15:45 10/11/16 15:44 09/29/16 21:09 4 MG Famotidine (Pepcid Tab) 20 mg DAILY PRN PO 09/27/16 22:45 10/27/16 22:44 Gabapentin (Neurontin Cap) 300 mg BID@0900,1400 PO 09/29/16 09:00 10/27/16 08:59 10/02/16 08:10 300 MG Nortriptyline HCl (Pamelor Cap) 25 mg HS PO 09/28/16 21:00 10/28/16 20:59 10/01/16 20:43 25 MG Hydromorphone HCl (Dilaudid Tab) 2 mg Q6H PRN PO 09/28/16 15:00 10/12/16 14:59 10/01/16 23:18 2 MG Heparin Sodium/ Dextrose 500 ml @ 27 mls/hr [id number] PRN IV 09/29/16 09:45 10/29/16 09:44 10/02/16 06:12 27 MLS/HR Ipratropium Salley (Atrovent 0.02% 0.5MG/2.5ML Neb) 0.5 mg Q4H PRN INH 09/29/16 22:45 10/29/16 22:44 Levalbuterol (Xopenex 1.25MG/ 0.5ML Neb) 1.25 mg Q4H PRN INH 09/29/16 22:45 10/29/16 22:44 Guaifenesin (Mucinex Contr Rel Tab) 600 mg Q12 PO 09/30/16 09:00 10/30/16 08:59 10/02/16 08:11 600 MG Miscellaneous Information 1 ea UD PRN N/A 09/30/16 14:45 10/30/16 14:44 Polyethylene (Miralax Powder Packet) 17 gm Q24H PRN PO 09/30/16 18:15 10/30/16 18:14 10/01/16 17:54 17 GM Bisacodyl (Dulcolax Supp) 10 mg Q24H PRN RI 09/30/16 18:15 10/30/16 18:14 Cefazolin Sodium 1000 mg/Dextrose 55 ml @ 110 mls/hr Q12H IV 10/01/16 04:00 10/11/16 03:59 10/02/16 04:34 110 MLS/HR Warfarin Sodium (Coumadin Tab) 5 mg DAILY@16 PO 10/02/16 16:00 11/01/16 15:59 Diltiazem HCl (Cardizem Cd Cap) 120 mg QAM PO 10/02/16 09:00 11/01/16 08:59 10/02/16 08:11 120 MG Benzonatate (Tessalon Perles Cap) 100 mg Q8H PRN PO 10/02/16 02:00 11/01/16 01:59 10/02/16 02:22 100 MG Potassium Chloride meq meq/ Magnesium Sulfate gm gm/Sodium Chloride 620 ml @ 125 mls/hr Q4H58M IV 10/02/16 08:15 10/02/16 12:15 UNV Potassium Chloride (Klor-Con Tab) 40 meq ONE PO 10/02/16 08:15 11/01/16 08:14 UNV Last 24 Hours Test 10/02/16 05:27 White Blood Count 17.10 K/uL Red Blood Count 3.67 M/uL Hemoglobin 11.2 g/dL Hematocrit 32.0 % Mean Corpuscular Volume 87.2 fL Mean Corpuscular Hemoglobin 30.5 pg Mean Corpuscular Hemoglobin Concent 35.0 g/dl Platelet Count 306 K/uL Mean Platelet Volume 8.8 fL Neutrophils (%) (Auto) 75.0 % Lymphocytes (%) (Auto) 9.3 % Monocytes (%) (Auto) 8.8 % Eosinophils (%) (Auto) 0.6 % Basophils (%) (Auto) 0.2 % Neutrophils # (Auto) 12.83 K/uL Lymphocytes # (Auto) 1.59 K/uL Monocytes # (Auto) 1.51 K/uL Eosinophils # (Auto) 0.10 K/uL Basophils # (Auto) 0.03 K/uL RDW Standard Deviation 46.6 fL RDW Coefficient of Variation 14.4 % Immature Granulocyte % (Auto) 6.1 % Immature Granulocyte # (Auto) 1.04 K/uL Toxic Granulation OCCASIONAL Toxic Vacuolation OCCASIONAL Echinocytes 1+ Prothrombin Time 11.8 SECONDS Prothromb Time International Ratio 1.1 Activated Partial Thromboplast Time 47.9 SECONDS Partial Thromboplastin Ratio 1.8 Sodium Level 131 mmol/L Potassium Level 3.3 mmol/L Chloride Level 96 mmol/L Carbon Dioxide Level 24 mmol/L Anion Gap 11.0 mmol/L Blood Urea Nitrogen 59 mg/dl Creatinine 2.50 mg/dl Est Creatinine Clear Calc Drug Dose 20.0 ml/min Estimated GFR () 22.0 Estimated GFR (Non- 19.0 BUN/Creatinine Ratio 23.6 Random Glucose 103 mg/dl Calcium Level 8.9 mg/dl Magnesium Level 1.7 mg/dl Assessment & Plan fucdmyyowtgu-kaudr-lvrbee levels above 130 which is good. initially treated with salt tabs and fluid restriction-however became fluid overloaded and treated with lasix. lasix and salt tabs on hold. will place back on fluid restriction of 1500cc. clg-fka-srtemqvh-atn-likely from nsaid with afib. vanco is off. creatinine continues to worsen but may have had additional insults with the necessary diuretics. would check ua with micro today and renal us to be thorough. with her worsening lung and renal disease with no overt signs of edema-one may consider pulmonary/renal [id number]-[id number]-pvpq check serologies to be thorough. no hemoptysis. platelet count and hg levels are stable.
--- NOTE | 2016-10-02 08:54 | DIAGNOSTIC IMAGING REPORT ---
RENAL ULTRASOUND HISTORY: Acute kidney injury . COMPARISON: Abdomen and pelvis CT 09/26/2016. FINDINGS: Right kidney: 11.4 cm. No hydronephrosis. Normal corticomedullary differentiation and cortical thickness. A 1.3 cm cyst. The lower pole is partially obscured by overlying bowel gas. Left kidney: 11.6 cm. No hydronephrosis. Normal corticomedullary differentiation and cortical thickness. Bladder: No bladder wall thickening. The bilateral ureteral jets were identified. IMPRESSION: No hydronephrosis. Electronically signed by: Lauro Dockery M.D. 10/02/2016 8:53 AM Dictated Date/Time: 10/02/2016 8:51 AM
[2016-10-02] MEDS ORDERED: DILTIAZEM HCL 120 MG CAPCR PO SCH (09:00)
[2016-10-02] MEDS ORDERED: MAGNESIUM SULFATE IV SCH ×6 (09:00)
[2016-10-02] MEDS ORDERED: [UNRECOGNIZED DRUG - OTHER] IV SCH ×6 (09:00)
[2016-10-02] MEDS ORDERED: POTASSIUM CHLORIDE 20 MEQ TABCR PO ONE (09:00)
[2016-10-02] MEDS ORDERED: WTR IV SCH ×6 (09:00)
[2016-10-02] MEDS ORDERED: POTASSIUM CHLORIDE IV SCH ×6 (09:00)
[2016-10-02 09:21] LABS: ARTERIAL BLOOD GAS BASE EXCESS -2.5 mEq/L (-9-1.8); ARTERIAL BLOOD GAS HCO3 21 mmol/L (19-24); ARTERIAL BLOOD GAS PO2 85 mm/Hg (80-95); ARTERIAL BLOOD GAS pH 7.43 (7.35-7.45)
[2016-10-02 09:27] LABS: ALLEN TEST POS (POS); O2 ADMINISTRATION 2.5 LITERS
[2016-10-02 10:33] LABS: URINE APPEARANCE CLEAR (CLEAR); URINE BILIRUBIN NEG (NEG); URINE COLOR YELLOW; URINE NITRITE NEG (NEG); UROBILINOGEN NEG (NEG)
[2016-10-02 10:35] LABS: MANUAL MICROSCOPIC REQUIRED? NO; REVIEW REQ? NO
--- NOTE | 2016-10-02 12:54 | PULMONARY CONSULTATION ---
DATE OF CONSULTATION: 10/02/2016 TIME: 11:15 a.m. REPORT OF CONSULTATION: The patient was seen in room 201. She is a 70-year-old female who came to the hospital on 09/26/2016, complaining of severe back pain and left hip pain. She had pain into the left groin. At home, she had tried Aleve, tramadol, and Tylenol without substantial benefit. She has a history of spinal stenosis. She had had an epidural done in August with a fair amount of improvement. At the time of her admission, she was found to have an elevated white count. Blood cultures were done. There were 2 blood cultures from the date of admission reporting staph aureus. The source of the infection has not been clear. There was an attempted aspiration of the left hip which did not retrieve any fluid. There has been no other obvious site. She did have an echocardiogram done during this hospital stay, this did not show evidence of valvular lesions. She had grade 1 diastolic dysfunction. The echo was done on 09/28/2016. On 09/29/2016, patient developed increasing shortness of breath. It was severe for a period of time. She had a dry hacking cough associated with it. She was then found to be in atrial fibrillation with rapid ventricular response. The AFib was new. She did recall an episode a few years ago where she had a very bad bronchitis. She had palpitations at that time. She states an EKG was done and showed only PACs. She felt similar then to what she did this time. The patient has had some improvement in her cough with Tessalon. She was bothered by her cough again last evening. She has not had significant shortness of breath. Her course has also been complicated by significant hyponatremia. At the time she had the AFib, she was given some IV fluids and her ProBNP became significantly elevated suggesting some fluid overload. Pulmonary consultation is requested to assess if patient might be a candidate for bronchoscopy. She states her cough is basically dry. She has expectorated just scant amounts of sputum. She does feel wheezy at times. She has nebulizer treatments ordered, but I do not believe she has been getting any that I could see with certainty. They are ordered on a p.r.n. basis. The patient was a heavy smoker for many years. She smoked about 1-1/2 packs per day for 44 years and she quit 5 years ago. She has never had a pulmonary function test done. She does not take any pulmonary medicines. Her alcohol intake is occasional. PAST SURGICAL HISTORY: Hernia repair. PAST MEDICAL HISTORY: 1. Spinal stenosis. 2. Scoliosis, which was first told to her at age 27. 3. Hypertension. 4. Anemia. 5. Hyponatremia. 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 FAMILY HISTORY: Mother in her 80s from what patient described as old age. Father in his late 60s from esophageal cancer. ALLERGIES: LISTED ALLERGIES TO LATEX WHICH CAUSED RESPIRATORY DISTRESS. OTHER ALLERGIES INCLUDE BRIMONIDINE, OXYCODONE, AND DIPHENHYDRAMINE. THE DIPHENHYDRAMINE REPORTEDLY CAUSED DELIRIUM. REVIEW OF SYSTEMS: GENERAL: The patient's energy level has been low. She lives at home with her daughter. She has been unable to ambulate a whole lot due to her severe left hip pain. NEUROLOGIC: No syncope or near syncope. OPHTHALMIC: No visual complaints. EAR, NOSE, THROAT: Denies nasal congestion or coryza. CARDIAC: She has not had any chest pains either pleuritic or nonpleuritic. She has not noticed palpitations. GASTROINTESTINAL: She has some chronic constipation. Denies nausea or vomiting. GENITOURINARY: Denies complaints. MUSCULOSKELETAL: Severe hip pain and some back pain as noted above. DERMATOLOGIC: No rashes. ENDOCRINE: No lymphadenopathy. PHYSICAL EXAMINATION: VITAL SIGNS: The patient is a 70-year-old female who looks fatigued. She did not appear to be short of breath. She was cooperative, alert and oriented. VITAL SIGNS: Temperature is currently 36.6. Her maximum temperature on 09/28/2016 was 37.3, that appears to be the highest temperature she has had since admission. HEENT: Pupils were reactive to light. Nares were clear. Mouth exam showed no erythema or exudate. NECK: Palpation of the neck reveals no lymph nodes or masses. Her neck veins were mildly distended. CHEST: Shows some degree of kyphosis but also scoliosis more inferiorly. CARDIOVASCULAR: Her heart rate when I first examined her was 109. The rhythm was atrial fibrillation. Blood pressure is 117/73. LUNGS: Auscultation of the lung delaney revealed some wheezing, predominantly on the right chest. This is heard posteriorly. It is somewhat focal. She has just a few scattered rales. Her respiratory rate was 20 breaths per minute. Blood pressure most recently was 117/73. ABDOMEN: Soft. Bowel sounds were present. They were normal. There was no tenderness to palpation or definitive mass. EXTREMITIES: Showed no cyanosis, clubbing or edema. The patient had numerous chest x-rays done during this hospital stay. The first one on 09/26/2016 does show a large right-sided diaphragmatic hernia. Lungs delaney were otherwise clear. On 09/29/2016, this again showed the right-sided hernia. There were increased markings in the right lung apex that could reflect asymmetric edema or inflammatory process but more likely edema. A followup x-ray later in the day showed some decrease in the interstitial prominence seen previously. Her chest x-ray done today shows the persistent right-sided diaphragmatic hernia with no consolidation. There is a PICC line in place on the right. She did have an abdominal CAT scan on admission, showing an anterior diaphragmatic hernia containing nonobstructive loops of bowel. Reportedly, this had been present previously. I could find a chest x-ray as far back as 04/29/2016 that showed this anterior herniation, although it seems to have progressed somewhat since then. Repeat blood cultures x2 have been negative. Urine culture shows Klebsiella. Admission white count was 20.85. White count today is 17.1. Today's hemoglobin is 11.2. Platelets were 306,000. PTT today is 47.9. She is on heparin. Initially urinalysis showed greater than 30 wbc's with 4+ bacteria. Today's urine shows negative bacteria with 1-5 wbc's. Arterial blood gas done on 09/29/2016 on 2.5 liters of oxygen showed a pH of 7.42 with a pCO2 of 30 and pO2 of 72. Repeat blood gas today on 2.5 liters showed a pH of 7.43 with a pCO2 of 33 and pO2 of 85. Admission electrolytes showed sodium 120, potassium 3.1, chloride 83, bicarbonate 26. BUN was 22 with a creatinine of 1.0. Magnesium was low at 1.1. C-reactive protein was significantly elevated at 24.2. TSH was normal at 2.29. Serial electrolytes obviously have been done. Today, sodium is up to 131, potassium 3.3, chloride 96, bicarbonate 24. The BUN and creatinine, however, have risen to 59 and 2.5 respectively. This has been a gradual increase. She did have a ProBNP of 16,673 on 09/30/2016. Liver function tests done on admission were normal. IMPRESSION: 1. Staph aureus bacteremia. 2. Atrial fibrillation with rapid ventricular response. 3. Right diaphragmatic hernia. 4. Scoliosis. 5. Fluid volume overload. 6. Hyponatremia. 7. Urinary tract infection with Klebsiella. COMMENTS AND RECOMMENDATIONS: The patient's increasing dyspnea over the past few days has likely been multifactorial. The bacteremia itself may have caused some shortness of breath. Likewise, her onset of AFib and the subsequent volume overload, I believe contributed to the shortness of breath and cough. She has a fairly large right diaphragmatic hernia that is occupying a significant portion of the lower part of her right chest. I suspect that this contributes somewhat to her respiratory insufficiency. This has been present at least as far back as April 2016 and may have been much longer. I believe this ultimately will need to be evaluated but now certainly is not the correct time for anything significant. The acute onset of atrial fibrillation could raise the specter of pulmonary embolic disease; however, patient is already anticoagulated and likely will be anticoagulated. She is not a candidate for CT angio of the chest due to her renal dysfunction. We may ultimately need to do a CT without contrast at the very least period. An alternative for diagnosing PE could be a ventilation perfusion scan. This test has many limitations and she does have an abnormal chest as noted above. Thus interpretation would be more difficult. I do not believe patient has her symptoms related to retained secretions and thus I do not think she needs bronchoscopy at present. I would be somewhat reticent any way in light of the fact she still had the AFib with some increase in her heart rates. I think she cautiously should get some nebulizer treatments to see if this would help her breathing a bit. I did explain to her that when she is well and out of the hospital a month or more and stable that outpatient pulmonary function test would be advised. We will follow patient with you. Thank you very much for asking me to assist in her care.
--- NOTE | 2016-10-02 12:57 | CARDIOLOGY PROGRESS NOTE ---
DATE: 10/02/2016 DATE: 10/02/2016 FOLLOW-UP VISIT SUBJECTIVE: The patient is a 70-year-old female who presented with a staph bacteremia and a Klebsiella UTI. The bacteremia was felt to be from a septic hip. She is currently on antibiotics and has remained afebrile. During her hospital admission, she developed atrial fibrillation with RVR. She was started on diltiazem and heparin. Today, she is resting comfortably. She has actually converted to normal sinus rhythm. OBJECTIVE: GENERAL: She is alert and oriented. VITAL SIGNS: Blood pressure is 110/80, pulse is regular at 80 beats per minute. GENERAL: She is in a sinus rhythm. She is afebrile. HEAD, EYES, EARS, NOSE, AND THROAT: Normocephalic. Pupils are equal and reactive to light. Extraocular muscles are intact bilaterally. NECK: The neck veins are flat. Carotids have good upstrokes bilaterally without bruits. Thyroid is nonpalpable. RESPIRATORY: Breath sounds equal bilaterally and clear to auscultation. CARDIOVASCULAR: Heart has a regular rhythm. Normal S1, S2. No S3, S4. No cardiac rubs or murmurs. GASTROINTESTINAL: Abdomen is soft, nontender without organomegaly. EXTREMITIES: Free of edema, digit clubbing, or cyanosis. NEUROLOGIC: Grossly intact. SKIN: Warm to touch. LYMPH NODES: Negative to palpation. IMPRESSIONS: 1. Paroxysmal atrial fibrillation, currently in sinus rhythm. 2. Staph bacteremia. 3. Urinary tract infection with Klebsiella. RECOMMENDATIONS: At this point, I would continue the patient on oral diltiazem and continue to load her with warfarin. She is going to receive several weeks of antibiotics for her bacteremia which I believe is appropriate. The transthoracic echocardiogram was a good study with good imaging windows and it showed no evidence of vegetations or other evidence for endocarditis. I do not believe at this time a transesophageal echocardiogram is indicated. Blood cultures have been negative since starting the antibiotics.
--- NOTE | 2016-10-02 14:43 | Progress Note ---
Subjective Date of Service: Oct 02, 2016. Subjective tolerating abx. afib being managed. remains with elevated creat. Repeat cultures from 09/28, 09/29 are negative. afebrile. no overnight events. no plans for AILEEN or hip surgery at this time Problem List Medical Problems: (1) Abnormal white blood cell count Status: Acute (2) Effusion, left hip Status: Acute (3) Fall Status: Acute (4) Fall Status: Acute (5) Hyponatremia Status: Acute (6) Left hip pain Status: Acute (7) Lumbar contusion Status: Acute (8) Lumbar contusion Status: Acute (9) Pelvic fracture Status: Acute (10) Pelvic fracture Status: Acute (11) UTI (urinary tract infection) Status: Acute Objective Vital Signs Date Time Temp Pulse Resp B/P (MAP) Pulse Ox O2 Delivery O2 Flow Rate FiO2 10/02/16 12:00 Nasal Cannula 2.0 10/02/16 11:22 36.6 96 20 101/79 (86) 97 Nasal Cannula 2.0 10/02/16 08:00 Nasal Cannula 2.0 10/02/16 07:22 36.6 119 20 117/73 (88) 95 2.5 10/02/16 04:35 36.6 118 20 142/87 (105) 98 Nasal Cannula 10/02/16 04:00 98 Nasal Cannula 2.0 10/02/16 00:16 36.6 115 22 147/94 (111) 95 Nasal Cannula 3.0 10/02/16 00:00 97 Room Air 10/01/16 20:17 36.8 100 20 126/68 (87) 96 Room Air 3.0 10/01/16 20:00 Nasal Cannula 2.0 10/01/16 19:20 94 98 Nasal Cannula 2.0 10/01/16 17:04 92 16 132/74 (93) 98 Nasal Cannula 2.5 10/01/16 16:00 Nasal Cannula 2.0 Laboratory Results Item Value Date Time Blood Culture - Preliminary Resulted 09/29/16 2332 Blood NO GROWTH TO DATE. Blood Culture - Preliminary Resulted 09/29/16 2332 Blood NO GROWTH TO DATE. Blood Culture - Preliminary Resulted 09/28/16 1551 Blood NO GROWTH TO DATE. Blood Culture - Preliminary Resulted 09/28/16 1546 Blood NO GROWTH TO DATE. Blood Culture - Final Complete 09/26/16 2319 Blood Staphylococcus Aureus Blood Culture - Final Complete 09/26/16 2313 Blood Staphylococcus Aureus Last 24 Hours Test 10/02/16 05:27 10/02/16 09:05 10/02/16 09:48 10/02/16 10:10 White Blood Count 17.10 K/uL Red Blood Count 3.67 M/uL Hemoglobin 11.2 g/dL Hematocrit 32.0 % Mean Corpuscular Volume 87.2 fL Mean Corpuscular Hemoglobin 30.5 pg Mean Corpuscular Hemoglobin Concent 35.0 g/dl Platelet Count 306 K/uL Mean Platelet Volume 8.8 fL Neutrophils (%) (Auto) 75.0 % Lymphocytes (%) (Auto) 9.3 % Monocytes (%) (Auto) 8.8 % Eosinophils (%) (Auto) 0.6 % Basophils (%) (Auto) 0.2 % Neutrophils # (Auto) 12.83 K/uL Lymphocytes # (Auto) 1.59 K/uL Monocytes # (Auto) 1.51 K/uL Eosinophils # (Auto) 0.10 K/uL Basophils # (Auto) 0.03 K/uL RDW Standard Deviation 46.6 fL RDW Coefficient of Variation 14.4 % Immature Granulocyte % (Auto) 6.1 % Immature Granulocyte # (Auto) 1.04 K/uL Toxic Granulation OCCASIONAL Toxic Vacuolation OCCASIONAL Echinocytes 1+ Prothrombin Time 11.8 SECONDS Prothromb Time International Ratio 1.1 Activated Partial Thromboplast Time 47.9 SECONDS Partial Thromboplastin Ratio 1.8 Sodium Level 131 mmol/L Potassium Level 3.3 mmol/L Chloride Level 96 mmol/L Carbon Dioxide Level 24 mmol/L Anion Gap 11.0 mmol/L Blood Urea Nitrogen 59 mg/dl Creatinine 2.50 mg/dl Est Creatinine Clear Calc Drug Dose 20.0 ml/min Estimated GFR () 22.0 Estimated GFR (Non- 19.0 BUN/Creatinine Ratio 23.6 Random Glucose 103 mg/dl Calcium Level 8.9 mg/dl Magnesium Level 1.7 mg/dl Arterial Blood pH 7.43 Arterial Blood Partial Pressure CO2 33 mmHg Arterial Blood Partial Pressure O2 85 mm/Hg Arterial Blood HCO3 21 mmol/L Arterial Blood Oxygen Saturation 95.0 % Arterial Blood Base Excess -2.5 mEq/L Arterial Blood Gas Delivery 2.5 LITERS Hipolito Test POS Urine Color YELLOW Urine Appearance CLEAR Urine pH 5.0 Urine Specific Margie 1.020 Urine Protein NEG Urine Glucose (UA) NEG Urine Ketones NEG Urine Occult Blood NEG Urine Nitrite NEG Urine Bilirubin NEG Urine Urobilinogen NEG Urine Leukocyte Esterase NEG Urine WBC (Auto) 1-5 /hpf Urine RBC (Auto) 5-10 /hpf Urine Hyaline Casts (Auto) 0 /lpf Urine Epithelial Cells (Auto) 10-20 /lpf Urine Bacteria (Auto) NEG Assessment and Plan (1) Staphylococcus aureus septicemia Assessment & Plan: repeat blood cultures negative, ok for picc from ID standpoint. pt unclear if she will be d/c to rehab. she can continue on ancef however, if she is to be d/c home and would prefer once daily dosing, she could be changed to ctx 2g daily. will need 6 weeks from first negative culture, tentative stop date 11/09. Will need weekly cbc, cmp, esr while on abx. can follow with ID as well post d/c.
[2016-10-02] MEDS: WARFARIN SOD 5 MG TAB PO SCH (15:44)
[2016-10-02] MEDS: TRAVOPROST Z 0.004% OPH SOLN 2.5 ML BTL OPB SCH (19:54)
[2016-10-02] MEDS: NORTRIPTYLINE HCL 25 MG CAP PO SCH (19:54)
[2016-10-02] MEDS: HYDROmorphone HCL 2 MG TAB PO PRN (22:28)
[2016-10-03] VITALS (9 sets, daily range): BP systolic 126–152; BP diastolic 68–86; PULSE 91–113; TEMP 36.7–37.1; O2SAT 91–100
[2016-10-03] MEDS: CEFAZOLIN IV 1,000 MG in DEXTROSE 5% 50ML 50 ML IV SCH ×2 (04:04→15:55)
[2016-10-03 05:02] LABS: HEMATOCRIT 28.7 % (37-47); MEAN CELL VOLUME 87.2 fL (80-100); MEAN CORPUSCULAR HEMOGLOBIN 29.5 pg (25-34); MEAN CORPUSCULAR HGB CONC 33.8 g/dl (32-36); MEAN PLATELET VOLUME 8.6 fL (7.4-10.4); PLATELET COUNT 302 K/uL (130-400); RED BLOOD COUNT 3.29 M/uL (4.2-5.4); WHITE BLOOD COUNT 20.23 K/uL (4.8-10.8)
[2016-10-03 05:27] LABS: PARTIAL THROMBOPLASTIN RATIO 3.6
[2016-10-03 05:44] LABS: COMPLETE YES; ECHINOCYTES 1+; EOSINOPHIL % 5.2 %; LYMPHOCYTE % 10.4 %; META ABS # 0.34 K/uL (0-0); METAMYELOCYTE % 1.7 %; MYELOCYTE % 2.6 %; NEUTROPHILS % 77.5 %; TOXIC GRANULATION OCCASIONAL
--- NOTE | 2016-10-03 06:05 | Progress Note ---
Medicine Progress Note Date & Time of Visit: Oct 02, 2016 at 09:48. Subjective Overall improved coughing spell overnight improved with Tessalon Perles. Remains afebrile, no chills pain in hip is controlled, worse with movement. tolerating PO mentating at baseline still requiring oxygen, notable decline with little movement. Objective Last 8 Hrs Date Time Temp Pulse Resp B/P (MAP) Pulse Ox O2 Delivery O2 Flow Rate FiO2 10/02/16 07:22 36.6 119 20 117/73 (88) 95 2.5 10/02/16 04:35 36.6 118 20 142/87 (105) 98 Nasal Cannula 10/02/16 04:00 98 Nasal Cannula 2.0 Physical Exam: GEN: WNWD, in no acute distress, alert and appropriate, appears short of breath with minimal exertion. HEENT: NC/AT, normal sclerae, MMM CARDIO: tachy rate, irregular rhythm, S1/2 heard without m/g/r LUNGS: Crackles at R base otherwise clear to auscultation bilaterally without wheezes or rales. ABD: soft, non-tender, non-distended, no rebound or guarding, +BS EXTREMITY: RP and DP palpable 2+ bilat, no LE swelling or edema, extremities are warm and well-perfused NEURO: CN 2-12 grossly intact MUSC: moves all extremities equally, no gross focal deficits. SKIN: warm and dry Laboratory Results: 10/02/16 05:27 Red Blood Count 3.67, Mean Corpuscular Volume 87.2, Mean Corpuscular Hemoglobin 30.5, Mean Corpuscular Hemoglobin Concent 35.0, Mean Platelet Volume 8.8, Neutrophils (%) (Auto) 75.0, Lymphocytes (%) (Auto) 9.3, Monocytes (%) (Auto) 8.8, Eosinophils (%) (Auto) 0.6, Basophils (%) (Auto) 0.2, Neutrophils # (Auto) 12.83, Lymphocytes # (Auto) 1.59, Monocytes # (Auto) 1.51, Eosinophils # (Auto) 0.10, Basophils # (Auto) 0.03 10/02/16 05:27 Test 09/26/16 20:15 09/26/16 23:19 09/26/16 23:20 09/26/16 23:30 Total Bilirubin 0.7 mg/dl (0.2-1) Direct Bilirubin 0.2 mg/dl (0-0.2) Aspartate Amino Transf (AST/SGOT) 31 U/L (15-37) Alanine Aminotransferase (ALT/SGPT) 33 U/L (12-78) Alkaline Phosphatase 72 U/L (45-117) Total Protein 7.3 gm/dl (6.4-8.2) Albumin 3.8 gm/dl (3.4-5.0) Lipase 80 U/L (73-393) Thyroid Stimulating Hormone (TSH) 2.290 uIu/ml (0.300-4.500) Lyme Disease IgG Antibody NEG (NEG) Lyme Disease IgM Antibody NEG (NEG) Lactic Acid Level 1.4 mmol/L (0.4-2.0) Urine Color YELLOW Urine Appearance CLOUDY (CLEAR) Urine pH 5.5 (4.5-7.5) Urine Specific [place] 1.015 (1.000-1.030) Urine Protein NEG (NEG) Urine Glucose (UA) NEG (NEG) Urine Ketones TRACE (NEG) Urine Occult Blood TRACE (NEG) Urine Nitrite NEG (NEG) Urine Bilirubin NEG (NEG) Urine Urobilinogen NEG (NEG) Urine Leukocyte Esterase MODERATE (NEG) Urine WBC (Auto) >30 /hpf (0-5) Urine RBC (Auto) 0-4 /hpf (0-4) Urine Hyaline Casts (Auto) 5-10 /lpf (0-5) Urine Epithelial Cells (Auto) 5-10 /lpf (0-5) Urine Bacteria (Auto) 4+ (NEG) Urine Random Sodium 35 mEq/L Test 09/27/16 01:34 09/28/16 06:19 09/28/16 17:35 09/29/16 06:33 Ethyl Alcohol mg/dL < 3.0 mg/dl (0-3) Dohle Bodies 1+ Osmolality 257 mOsm/kg (280-300) Urine Osmolality 433 mOms/kg (500-800) Erythrocyte Sedimentation Rate 63 mm/hr (0-21) C-Reactive Protein 34.60 mg/dl (0-0.29) Test 09/30/16 13:12 09/30/16 19:27 10/02/16 05:27 10/02/16 09:05 Vancomycin Level Trough 23.5 mcg/ml (SEE COMMENT) Pro-B-Type Natriuretic Peptide 21199 pg/ml (0-900) White Blood Count 17.10 K/uL (4.8-10.8) Red Blood Count 3.67 M/uL (4.2-5.4) Hemoglobin 11.2 g/dL (12.0-16.0) Hematocrit 32.0 % (37-47) Mean Corpuscular Volume 87.2 fL (80-100) Mean Corpuscular Hemoglobin 30.5 pg (25-34) Mean Corpuscular Hemoglobin Concent 35.0 g/dl (32-36) Platelet Count 306 K/uL (130-400) Mean Platelet Volume 8.8 fL (7.4-10.4) Neutrophils (%) (Auto) 75.0 % Lymphocytes (%) (Auto) 9.3 % Monocytes (%) (Auto) 8.8 % Eosinophils (%) (Auto) 0.6 % Basophils (%) (Auto) 0.2 % Neutrophils # (Auto) 12.83 K/uL (1.4-6.5) Lymphocytes # (Auto) 1.59 K/uL (1.2-3.4) Monocytes # (Auto) 1.51 K/uL (0.11-0.59) Eosinophils # (Auto) 0.10 K/uL (0-0.5) Basophils # (Auto) 0.03 K/uL (0-0.2) RDW Standard Deviation 46.6 fL (36.4-46.3) RDW Coefficient of Variation 14.4 % (11.5-14.5) Immature Granulocyte % (Auto) 6.1 % Immature Granulocyte # (Auto) 1.04 K/uL (0.00-0.02) Toxic Granulation OCCASIONAL Toxic Vacuolation OCCASIONAL Echinocytes 1+ Prothrombin Time 11.8 SECONDS (9.0-12.0) Prothromb Time International Ratio 1.1 (0.9-1.1) Activated Partial Thromboplast Time 47.9 SECONDS (21.0-31.0) Partial Thromboplastin Ratio 1.8 Anion Gap 11.0 mmol/L (3-11) Est Creatinine Clear Calc Drug Dose 20.0 ml/min Estimated GFR () 22.0 Estimated GFR (Non- 19.0 BUN/Creatinine Ratio 23.6 (10-20) Calcium Level 8.9 mg/dl (8.5-10.1) Magnesium Level 1.7 mg/dl (1.8-2.4) Arterial Blood pH 7.43 (7.35-7.45) Arterial Blood Partial Pressure CO2 33 mmHg (35-46) Arterial Blood Partial Pressure O2 85 mm/Hg (80-95) Arterial Blood HCO3 21 mmol/L (19-24) Arterial Blood Oxygen Saturation 95.0 % (90-95) Arterial Blood Base Excess -2.5 mEq/L (-9-1.8) Arterial Blood Gas Delivery 2.5 LITERS Hipolito Test POS (POS) Test 10/02/16 09:48 Date/Time Source Procedure Growth Status 09/29/16 23:32 Blood Blood Culture - Preliminary NO GROWTH TO DATE. Resulted 09/27/16 00:00 Nasal MRSA DNA Surveillance Screen - Final Specimen Negative for MRSA by DNA Probe Complete 09/27/16 03:30 Urine , Clean Catch Urine Culture - Final Klebsiella Pneumoniae Complete Last 24 Hours Test 10/02/16 05:27 10/02/16 08:26 10/02/16 09:05 White Blood Count 17.10 K/uL Red Blood Count 3.67 M/uL Hemoglobin 11.2 g/dL Hematocrit 32.0 % Mean Corpuscular Volume 87.2 fL Mean Corpuscular Hemoglobin 30.5 pg Mean Corpuscular Hemoglobin Concent 35.0 g/dl Platelet Count 306 K/uL Mean Platelet Volume 8.8 fL Neutrophils (%) (Auto) 75.0 % Lymphocytes (%) (Auto) 9.3 % Monocytes (%) (Auto) 8.8 % Eosinophils (%) (Auto) 0.6 % Basophils (%) (Auto) 0.2 % Neutrophils # (Auto) 12.83 K/uL Lymphocytes # (Auto) 1.59 K/uL Monocytes # (Auto) 1.51 K/uL Eosinophils # (Auto) 0.10 K/uL Basophils # (Auto) 0.03 K/uL RDW Standard Deviation 46.6 fL RDW Coefficient of Variation 14.4 % Immature Granulocyte % (Auto) 6.1 % Immature Granulocyte # (Auto) 1.04 K/uL Toxic Granulation OCCASIONAL Toxic Vacuolation OCCASIONAL Echinocytes 1+ Prothrombin Time 11.8 SECONDS Prothromb Time International Ratio 1.1 Activated Partial Thromboplast Time 47.9 SECONDS Partial Thromboplastin Ratio 1.8 Sodium Level 131 mmol/L Potassium Level 3.3 mmol/L Chloride Level 96 mmol/L Carbon Dioxide Level 24 mmol/L Anion Gap 11.0 mmol/L Blood Urea Nitrogen 59 mg/dl Creatinine 2.50 mg/dl Est Creatinine Clear Calc Drug Dose 20.0 ml/min Estimated GFR () 22.0 Estimated GFR (Non- 19.0 BUN/Creatinine Ratio 23.6 Random Glucose 103 mg/dl Calcium Level 8.9 mg/dl Magnesium Level 1.7 mg/dl Arterial Blood pH 7.43 Arterial Blood Partial Pressure CO2 33 mmHg Arterial Blood Partial Pressure O2 85 mm/Hg Arterial Blood HCO3 21 mmol/L Arterial Blood Oxygen Saturation 95.0 % Arterial Blood Base Excess -2.5 mEq/L Arterial Blood Gas Delivery 2.5 LITERS Hipolito Test POS Assessment & Plan 70 yo F presents with acute L hip septic arthritis, now with MSSA bacteremia and zee-sensitive Klebsiella UTI. Subsequently went into afib with RVR on 09/28, which was a new diagnosis for her. Overnight prior to afib seen on EKG she was tachy into the 130s, and was thought to be dry. Given 1L IVF with improvement in HR to 90s. HR went back into 150s around 700am and EKG revealed afib with RVR. She was asymptomatic at the time. Transferred to telemetry and given Diltiazem 10mg IV bolus, then 15mg IV bolus with improvement in HR to the 110s. Became fluid overloaded and IVF/salt tabs stopped. Began diuresis with Lasix with good result. Previous TTE performed this admission reveals EF 60-65%, no wall motion abnormalities, no ASD and no valvular pathology or vegetation in setting of S aureus bacteremia. 1. Afib-new onset. Rate controlled with the diltiazem PO TID, will change to Diltiazem CD 120mg PO daily starting in am for once daily dosing. TTE WNL this admission. Cont heparin drip and cont coumadin. 2. Hypoxia 2/2 acute fluid overload from acute diastolic heart failure exacerbation-appears compensated. Improved oxygenation at this point--working to wean O2 as tolerated. -coughing spell last night-no changes on CXR and better with Tessalon Perldhruv-persistent hypoxia with dyspnea on exertion. Good air movement on exam with some crackles on the R base. Pulm consult. Vasculitis studies pending. -may need bronch if hypoxia is persistent? 3. Sepsis 2/2 L hip septic arthritis, MSSA and Klebsiella UTI-resuscitated. Aspiration under fluoroscopy was unsuccessful. Per PM, pt is not a candidate for an injection in setting of acute infection. PO pain meds were adjusted for better relief and are controlling pain. 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 Will have her followup as outpatient for this. Cont Ancef for now with PICC placement and plan for 6 weeks abx moving forward. 5. RASHEL-worsened creatinine to 2.5 poss 2/2 NSAID use in setting of ACEI. Cont holding Lisinopril and NSAIDs at this time. Appreciate Nephro recs. Vasculitis studies pending. 6. Chronic pain in L hip and back-s/p epidural injection in back two months ago. She is currently on gabapentin, pamelor, dilaudid PO, tramadol PO and morphine IV for breakthrough pain. 7. Anemia-chronic, no indication for transfusion at this time. 8. HTN-controlled, lisinopril held in setting of RASHEL and HCTZ held in setting of low Na. 9. Klebsiella RKS-vgs-egvdzpbgb, received several days of abx at this time, changing abx as above. Asymptomatic. 10. Leukocytosis-elevated to 18K in setting of infection. Not ill appearing. Cont to monitor. 11. Hyponatremia-improved off HCTZ. Nephro stopped salt tabs. Trend PRP. 12. Ambulatory dysfunction 2/2 pain DVT proph-heparin drip/coumadin Full Code Dispo-cont tele, will go to rehab likely 2-3 days, referrals have been placed DO [facility] Hospitalist Consultants: [facility] ORTHO NEPHRO CARDS PULM Current Inpatient Medications: Current Inpatient Medications Medications (Trade) Dose Ordered Sig/Viviane Route Start Time Stop Time Status Last Admin Dose Admin Acetaminophen (Tylenol Tab) 650 mg Q4H PRN PO 09/27/16 00:30 10/27/16 00:29 Lidocaine (Lidoderm Patch 5%) 1 patch QAM TD 09/28/16 09:00 10/28/16 08:59 10/02/16 08:12 1 PATCH Ondansetron HCl (Zofran Inj) 4 mg Q6H PRN IV 09/27/16 00:30 10/27/16 00:29 09/27/16 20:45 4 MG Lorazepam (Ativan Inj) 0.5 mg Q4H PRN IV 09/27/16 00:30 10/27/16 00:29 09/29/16 12:03 0.5 MG Miscellaneous (Remove Lidoderm Patch) 1 ea DAILY@21 N/A 09/27/16 14:00 10/27/16 13:59 10/01/16 20:44 1 EA Gabapentin (Neurontin Cap) 300 mg HS PO 09/27/16 21:00 10/27/16 20:59 10/01/16 20:43 300 MG Multivitamins/ Minerals (Multivitamin W/ Minerals Tab) 1 tab DAILY PO 09/27/16 09:00 10/27/16 08:59 10/02/16 08:11 1 TAB Tramadol HCl (Ultram Tab) pain not relieved by ibupropen/tylenol Q6H PRN PO 09/27/16 00:30 10/27/16 00:29 10/02/16 04:36 100 MG Travoprost (Travatan Z) 1 drops HS OPB 09/27/16 21:00 10/27/16 20:59 10/01/16 20:44 1 DROPS Docusate Sodium (coLACE CAP) 100 mg DAILY PO 09/28/16 09:00 10/28/16 08:59 10/02/16 08:10 100 MG Lorazepam 0.5 mg/ Syringe 1 ml @ 1 mls/min Q4H PRN IV 09/27/16 01:15 10/27/16 01:14 Morphine Sulfate (MoRPHine SULFATE INJ) 4 mg Q4HWA PRN IV 09/27/16 15:45 10/11/16 15:44 09/29/16 21:09 4 MG Famotidine (Pepcid Tab) 20 mg DAILY PRN PO 09/27/16 22:45 10/27/16 22:44 Gabapentin (Neurontin Cap) 300 mg BID@0900,1400 PO 09/29/16 09:00 10/27/16 08:59 10/02/16 08:10 300 MG Nortriptyline HCl (Pamelor Cap) 25 mg HS PO 09/28/16 21:00 10/28/16 20:59 10/01/16 20:43 25 MG Hydromorphone HCl (Dilaudid Tab) 2 mg Q6H PRN PO 09/28/16 15:00 10/12/16 14:59 10/01/16 23:18 2 MG Heparin Sodium/ Dextrose 500 ml @ 27 mls/hr [id number] PRN IV 09/29/16 09:45 10/29/16 09:44 10/02/16 06:12 27 MLS/HR Ipratropium [place] (Atrovent 0.02% 0.5MG/2.5ML Neb) 0.5 mg Q4H PRN INH 09/29/16 22:45 10/29/16 22:44 Levalbuterol (Xopenex 1.25MG/ 0.5ML Neb) 1.25 mg Q4H PRN INH 09/29/16 22:45 10/29/16 22:44 Guaifenesin (Mucinex Contr Rel Tab) 600 mg Q12 PO 09/30/16 09:00 10/30/16 08:59 10/02/16 08:11 600 MG Miscellaneous Information 1 ea UD PRN N/A 09/30/16 14:45 10/30/16 14:44 Polyethylene (Miralax Powder Packet) 17 gm Q24H PRN PO 09/30/16 18:15 10/30/16 18:14 10/01/16 17:54 17 GM Bisacodyl (Dulcolax Supp) 10 mg Q24H PRN [place] 09/30/16 18:15 10/30/16 18:14 Cefazolin Sodium 1000 mg/Dextrose 55 ml @ 110 mls/hr Q12H IV 10/01/16 04:00 10/11/16 03:59 10/02/16 04:34 110 MLS/HR Warfarin Sodium (Coumadin Tab) 5 mg DAILY@16 PO 10/02/16 16:00 11/01/16 15:59 Diltiazem HCl (Cardizem Cd Cap) 120 mg QAM PO 10/02/16 09:00 11/01/16 08:59 10/02/16 08:11 120 MG Benzonatate (Tessalon Perles Cap) 100 mg Q8H PRN PO 10/02/16 02:00 11/01/16 01:59 10/02/16 02:22 100 MG Potassium Chloride 40 meq/ Magnesium Sulfate 4 gm/Sodium Chloride 528 ml @ 125 mls/hr Q4H14M IV 10/02/16 09:00 10/02/16 13:00 10/02/16 09:31 125 MLS/HR
[2016-10-03 06:06] LABS: BUN/CREATININE RATIO 22.8 (10-20); CALCIUM 8.9 mg/dl (8.5-10.1); CREATININE 2.4 mg/dl (0.60-1.20); POTASSIUM 4.5 mmol/L (3.5-5.1)
[2016-10-03] MEDS: HEPARIN 25,000 UNIT/500ML D5W 500 ML IV PRN ×3 (06:39→19:59)
[2016-10-03 08:18] LABS: PROTHROMBIN TIME (PATIENT) 22.4 SECONDS (9.0-12.0)
--- NOTE | 2016-10-03 08:31 | PULMONARY PROGRESS NOTE ---
DATE: 10/03/2016 TIME: 7:55 a.m. SUBJECTIVE: The patient is feeling much better today. She has had no significant coughing spells over the last 12 hours. She has not had any shortness of breath. Her strength is somewhat improved. She is sitting up on the side of the bed. She just ate a good breakfast and her appetite was good. She seems stronger today. OBJECTIVE: GENERAL: The patient appears comfortable at rest. VITAL SIGNS: Temperature is 36.8. Her maximum temperature in the past 24 hours is 37 degrees. EARS, NOSE AND THROAT: Unchanged from yesterday. HEART: The cardiac rate is 118. The rhythm is atrial fibrillation. Blood pressure is 152/86. LUNGS: Auscultation of the lung delaney revealed them to be clear today. No wheezing was heard. Her respiratory rate was 20 breaths per minute. The oxygen saturation is 100% on 2 liters. ABDOMEN: Soft and nontender. EXTREMITIES: Showed +1 lower extremity edema bilaterally. LABORATORY DATA: Today's white blood cell count has increased to 20.23. Yesterday it was 17.10. Hemoglobin today is 9.7 and yesterday was 11.2. Platelets are 302,000. PTT this morning was 94.5. The INR is still pending. Today's BUN is 55 with a creatinine of 2.4. Yesterday, they were 59 and 2.5 respectively. Electrolytes today show sodium 133, potassium 4.5, chloride 101 and bicarbonate 22. The ALETA screen and ANCA levels are pending. IMPRESSION: 1. Staph aureus bacteremia. 2. Atrial fibrillation with rapid ventricular response. 3. 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 4. Scoliosis. 5. Renal insufficiency. 6. Hyponatremia. 7. Urinary tract infection with Klebsiella. COMMENTS AND RECOMMENDATIONS: The patient's respiratory status has improved. It is likely that her oxygen supplementation can be decreased or discontinued. Her lungs today sound clear. Her other issues are still pending as noted from the above laboratory results. I do not believe she needs any specific respiratory intervention other than the incentive spirometry that she is already doing. She does have p.r.n. respiratory treatments ordered, but I do not believe she has needed them.
--- NOTE | 2016-10-03 08:46 | Nephrology Progress Note ---
Nephrology Progress Note Date of Service: Oct 03, 2016. Subjective 70 yo female with chronic degenerative disease of the hip/uti/bacteremia/ hyponatremia/afib/sylvia. pt overall much improved in terms of breathing. sating 100% on 2 liters and lungs cta. appetite is good as well. Objective Date Time Temp Pulse Resp B/P (MAP) Pulse Ox O2 Delivery O2 Flow Rate FiO2 10/03/16 07:11 36.8 109 20 152/86 (108) 100 Nasal Cannula 2.0 10/03/16 04:24 36.7 113 18 126/73 (90) 96 Nasal Cannula 2.0 Humidified Oxygen 10/03/16 04:00 Nasal Cannula 2.0 10/03/16 00:00 96 Nasal Cannula 2.0 10/02/16 23:00 37.0 108 28 144/83 (103) 96 10/02/16 20:00 98 Nasal Cannula 2.0 10/02/16 18:40 36.9 107 16 140/83 (102) 98 Nasal Cannula 2.5 10/02/16 16:00 Nasal Cannula 2.0 10/02/16 15:10 36.6 94 18 118/81 (93) 100 Nasal Cannula 2.5 10/02/16 12:00 Nasal Cannula 2.0 10/02/16 11:22 36.6 96 20 101/79 (86) 97 Nasal Cannula 2.0 Physical Exam: General-aaox3 Eyes-no scleral icterus ENT-mmm Neck-supple Lungs-cta Heart-irregularly irregular, tachycardia Abdomen-bs+ s/nt/nd Extremities-no c/c/e Neuro-nonfocal Current Inpatient Medications Medications (Trade) Dose Ordered Sig/Viviane Route Start Time Stop Time Status Last Admin Dose Admin Acetaminophen (Tylenol Tab) 650 mg Q4H PRN PO 09/27/16 00:30 10/27/16 00:29 Lidocaine (Lidoderm Patch 5%) 1 patch QAM TD 09/28/16 09:00 10/28/16 08:59 10/01/16 07:54 1 PATCH Ondansetron HCl (Zofran Inj) 4 mg Q6H PRN IV 09/27/16 00:30 10/27/16 00:29 09/27/16 20:45 4 MG Lorazepam (Ativan Inj) 0.5 mg Q4H PRN IV 09/27/16 00:30 10/27/16 00:29 09/29/16 12:03 0.5 MG Miscellaneous (Remove Lidoderm Patch) 1 ea DAILY@21 N/A 09/27/16 14:00 10/27/16 13:59 10/01/16 20:44 1 EA Gabapentin (Neurontin Cap) 300 mg HS PO 09/27/16 21:00 10/27/16 20:59 10/02/16 19:54 300 MG Multivitamins/ Minerals (Multivitamin W/ Minerals Tab) 1 tab DAILY PO 09/27/16 09:00 10/27/16 08:59 10/02/16 08:11 1 TAB Tramadol HCl (Ultram Tab) pain not relieved by ibupropen/tylenol Q6H PRN PO 09/27/16 00:30 10/27/16 00:29 10/02/16 04:36 100 MG Travoprost (Travatan Z) 1 drops HS OPB 09/27/16 21:00 10/27/16 20:59 10/02/16 19:54 1 DROPS Docusate Sodium (coLACE CAP) 100 mg DAILY PO 09/28/16 09:00 10/28/16 08:59 10/02/16 08:10 100 MG Lorazepam 0.5 mg/ Syringe 1 ml @ 1 mls/min Q4H PRN IV 09/27/16 01:15 10/27/16 01:14 Morphine Sulfate (MoRPHine SULFATE INJ) 4 mg Q4HWA PRN IV 09/27/16 15:45 10/11/16 15:44 09/29/16 21:09 4 MG Famotidine (Pepcid Tab) 20 mg DAILY PRN PO 09/27/16 22:45 10/27/16 22:44 Gabapentin (Neurontin Cap) 300 mg BID@0900,1400 PO 09/29/16 09:00 10/27/16 08:59 10/02/16 13:45 300 MG Nortriptyline HCl (Pamelor Cap) 25 mg HS PO 09/28/16 21:00 10/28/16 20:59 10/02/16 19:54 25 MG Hydromorphone HCl (Dilaudid Tab) 2 mg Q6H PRN PO 09/28/16 15:00 10/12/16 14:59 10/02/16 22:28 2 MG Heparin Sodium/ Dextrose 500 ml @ 25 mls/hr Q20H PRN IV 09/29/16 09:45 10/29/16 09:44 10/03/16 06:39 25 MLS/HR Ipratropium [place] (Atrovent 0.02% 0.5MG/2.5ML Neb) 0.5 mg Q4H PRN INH 09/29/16 22:45 10/29/16 22:44 Levalbuterol (Xopenex 1.25MG/ 0.5ML Neb) 1.25 mg Q4H PRN INH 09/29/16 22:45 10/29/16 22:44 Guaifenesin (Mucinex Contr Rel Tab) 600 mg Q12 PO 09/30/16 09:00 10/30/16 08:59 10/02/16 19:54 600 MG Miscellaneous Information 1 ea UD PRN N/A 09/30/16 14:45 10/30/16 14:44 Polyethylene (Miralax Powder Packet) 17 gm Q24H PRN PO 09/30/16 18:15 10/30/16 18:14 10/01/16 17:54 17 GM Bisacodyl (Dulcolax Supp) 10 mg Q24H PRN [place] 09/30/16 18:15 10/30/16 18:14 Cefazolin Sodium 1000 mg/Dextrose 55 ml @ 110 mls/hr Q12H IV 10/01/16 04:00 10/11/16 03:59 10/03/16 04:04 110 MLS/HR Warfarin Sodium (Coumadin Tab) 5 mg DAILY@16 PO 10/02/16 16:00 11/01/16 15:59 10/02/16 15:44 5 MG Benzonatate (Tessalon Perles Cap) 100 mg Q8H PRN PO 10/02/16 02:00 11/01/16 01:59 10/02/16 19:55 100 MG Heparin Sodium (Porcine) (Heparin 10 Unit/ ml 5 ml Flush) 5 ml PRN PRN FLUSH 10/02/16 23:45 11/01/16 23:44 Diltiazem HCl (Cardizem Cd Cap) 180 mg QAM PO 10/03/16 09:00 9/8/17 08:59 Last 24 Hours Test 10/02/16 09:05 10/02/16 09:48 10/02/16 10:10 10/03/16 04:41 Arterial Blood pH 7.43 Arterial Blood Partial Pressure CO2 33 mmHg Arterial Blood Partial Pressure O2 85 mm/Hg Arterial Blood HCO3 21 mmol/L Arterial Blood Oxygen Saturation 95.0 % Arterial Blood Base Excess -2.5 mEq/L Arterial Blood Gas Delivery 2.5 LITERS Hipolito Test POS Urine Color YELLOW Urine Appearance CLEAR Urine pH 5.0 Urine Specific [place] 1.020 Urine Protein NEG Urine Glucose (UA) NEG Urine Ketones NEG Urine Occult Blood NEG Urine Nitrite NEG Urine Bilirubin NEG Urine Urobilinogen NEG Urine Leukocyte Esterase NEG Urine WBC (Auto) 1-5 /hpf Urine RBC (Auto) 5-10 /hpf Urine Hyaline Casts (Auto) 0 /lpf Urine Epithelial Cells (Auto) 10-20 /lpf Urine Bacteria (Auto) NEG White Blood Count 20.23 K/uL Red Blood Count 3.29 M/uL Hemoglobin 9.7 g/dL Hematocrit 28.7 % Mean Corpuscular Volume 87.2 fL Mean Corpuscular Hemoglobin 29.5 pg Mean Corpuscular Hemoglobin Concent 33.8 g/dl Platelet Count 302 K/uL Mean Platelet Volume 8.6 fL RDW Standard Deviation 46.2 fL RDW Coefficient of Variation 14.6 % Neutrophils % (Manual) 77.5 % Lymphocytes % (Manual) 10.4 % Monocytes % (Manual) 2.6 % Eosinophils % (Manual) 5.2 % Metamyelocytes % 1.7 % Myelocytes % 2.6 % Neutrophils # (Manual) 15.68 K/uL Total Absolute Neutrophils 15.68 K/uL Lymphocytes # (Manual) 2.10 K/uL Total Absolute Lymphocytes 2.10 K/uL Monocytes # (Manual) 0.53 K/uL Eosinophils # (Manual) 1.05 K/uL Metamyelocytes # 0.34 K/uL Myelocytes # 0.53 K/uL Toxic Granulation OCCASIONAL Echinocytes 1+ Activated Partial Thromboplast Time 94.5 SECONDS Partial Thromboplastin Ratio 3.6 Sodium Level 133 mmol/L Potassium Level 4.5 mmol/L Chloride Level 101 mmol/L Carbon Dioxide Level 22 mmol/L Anion Gap 10.0 mmol/L Blood Urea Nitrogen 55 mg/dl Creatinine 2.40 mg/dl Est Creatinine Clear Calc Drug Dose 20.8 ml/min Estimated GFR () 23.1 Estimated GFR (Non- 19.9 BUN/Creatinine Ratio 22.8 Random Glucose 110 mg/dl Calcium Level 8.9 mg/dl Test 10/03/16 07:44 Prothrombin Time 22.4 SECONDS Prothromb Time International Ratio 2.0 Magnesium Level 2.5 mg/dl Assessment & Plan [id number]-[id number] levels above 130 which is good. on fluid restriction of 1500cc. no salt tabs or lasix at this time. myp-sfc-czocmnsp-atn-likely from nsaid with afib +/- vanco. no longer on vanco. ua with rbcs in it although also in setting of blood thinners. ordered serologies with worsening pulmonary function and renal function. however both appear to be improving now. spoke with pulmonary and appreciate their input. will try to wean off the oxygen. hoping, since lasix stopped and infection improved, that creatinine will continue to trend down.
[2016-10-03] MEDS: GUAIFENESIN 600 MG TABCR PO SCH ×2 (08:59→19:54)
[2016-10-03] MEDS: CEROVITE ADV FORMULA TAB PO SCH (08:59)
[2016-10-03] MEDS: GABAPENTIN 300 MG CAP PO SCH ×3 (08:59→19:54)
[2016-10-03] MEDS: BENZONATATE 100MG CAP PO PRN ×2 (09:00→17:31)
[2016-10-03] MEDS: DILTIAZEM HCL 180 MG CAPCR PO SCH (09:00)
[2016-10-03] MEDS: TRAMADOL HCL 50 MG TAB PO PRN ×2 (09:00→17:32)
[2016-10-03] MEDS: DOCUSATE SODIUM 100 MG CAP PO SCH (09:00)
--- NOTE | 2016-10-03 10:40 | PROGRESS NOTE ---
DATE: 10/03/2016 FOLLOWUP VISIT SUBJECTIVE: The patient is a 70-year-old female admitted with a Staph aureus bacteremia from a septic arthritis of the left hip. She also had an incidental Klebsiella UTI, which is being treated by infectious disease. Upon presentation, she had atrial fibrillation with RVR, which has been well controlled with diltiazem and she is currently anticoagulated with heparin transitioning to warfarin. I thought yesterday that the patient may be in a sinus mechanism on the telemetry, but this morning she remains in atrial fibrillation with a controlled rate. She has no complaints today The pulmonary consult was noted. OBJECTIVE: VITAL SIGNS: Blood pressure is 120/70. Pulse is irregular at 100 beats per minute. She is afebrile. GENERAL: She is alert and oriented, in no acute distress. HEENT: She is normocephalic. Pupils are equal and reactive to light. Extraocular muscles are intact bilaterally. NECK: The neck veins are flat. Carotids have good upstrokes bilaterally without bruits. Thyroid is nonpalpable. RESPIRATORY: Breath sounds equal bilaterally and clear to auscultation. CARDIOVASCULAR: Heart has an irregular rhythm. There are no cardiac rubs or murmurs. GASTROINTESTINAL: Abdomen is soft and nontender without organomegaly. EXTREMITIES: Free of edema, digit clubbing, or cyanosis. NEUROLOGIC: Grossly intact. SKIN: Warm to touch. LYMPH NODES: Negative to palpation. IMPRESSION: 1. Persistent atrial fibrillation. 2. Staph bacteremia from a septic left hip. 3. Klebsiella urinary tract infection. 4. Large hiatal hernia. RECOMMENDATIONS: At this point, I would continue the patient with diltiazem and continue to transition her to warfarin.
[2016-10-03] MEDS: MoRPHine SULFATE 4 MG/ML 1 ML CARP\\VIAL IV PRN ×2 (10:52→19:57)
[2016-10-03] MEDS: ONDANSETRON INJ 2 MG/ML 2 ML VIAL IV PRN ×2 (10:57→20:02)
[2016-10-03 13:02] LABS: PARTIAL THROMBOPLASTIN RATIO 3.5
[2016-10-03] MEDS: WARFARIN SOD 5 MG TAB PO SCH (15:55)
[2016-10-03] MEDS: NORTRIPTYLINE HCL 25 MG CAP PO SCH (19:52)
[2016-10-03] MEDS: TRAVOPROST Z 0.004% OPH SOLN 2.5 ML BTL OPB SCH (19:58)
[2016-10-03 21:29] LABS: PARTIAL THROMBOPLASTIN RATIO 2.7
--- NOTE | 2016-10-03 23:03 | Progress Note ---
Medicine Progress Note Date & Time of Visit: Oct 03, 2016 at 17:28. Subjective tolerating PO pain is slightly worse in hip today but is controlled patient is very concerned that we will discharge her prematurely, assured this would not be the case. discussed that she would also be going to rehab, with which she agrees off oxygen at this time. Objective Last 8 Hrs Date Time Temp Pulse Resp B/P (MAP) Pulse Ox O2 Delivery O2 Flow Rate FiO2 10/03/16 15:01 37.1 96 18 136/68 (90) 95 Room Air 10/03/16 12:00 Nasal Cannula 1.0 10/03/16 10:40 37.1 91 20 136/70 (92) 97 1.0 Physical Exam: GEN: WNWD, in no acute distress, alert and appropriate HEENT: NC/AT, normal sclerae, MMM CARDIO: tachy rate, irregular rhythm, S1/2 heard without m/g/r LUNGS: CTAB without crackles, wheezes or rales. Good air movement. ABD: soft, non-tender, non-distended, no rebound or guarding, +BS EXTREMITY: RP and DP palpable 2+ bilat, no LE swelling or edema, extremities are warm and well-perfused NEURO: CN 2-12 grossly intact MUSC: 5/5 strength in lower extremities, no gross focal deficits. SKIN: warm and dry Laboratory Results: 10/03/16 04:41 Red Blood Count 3.29, Mean Corpuscular Volume 87.2, Mean Corpuscular Hemoglobin 29.5, Mean Corpuscular Hemoglobin Concent 33.8, Mean Platelet Volume 8.6 10/03/16 04:41 Test 09/26/16 20:15 09/26/16 23:19 09/26/16 23:30 09/27/16 01:34 Total Bilirubin 0.7 mg/dl (0.2-1) Direct Bilirubin 0.2 mg/dl (0-0.2) Aspartate Amino Transf (AST/SGOT) 31 U/L (15-37) Alanine Aminotransferase (ALT/SGPT) 33 U/L (12-78) Alkaline Phosphatase 72 U/L (45-117) Total Protein 7.3 gm/dl (6.4-8.2) Albumin 3.8 gm/dl (3.4-5.0) Lipase 80 U/L (73-393) Thyroid Stimulating Hormone (TSH) 2.290 uIu/ml (0.300-4.500) Lyme Disease IgG Antibody NEG (NEG) Lyme Disease IgM Antibody NEG (NEG) Lactic Acid Level 1.4 mmol/L (0.4-2.0) Urine Random Sodium 35 mEq/L Ethyl Alcohol mg/dL < 3.0 mg/dl (0-3) Test 09/28/16 06:19 09/28/16 17:35 09/29/16 06:33 09/30/16 13:12 Dohle Bodies 1+ Osmolality 257 mOsm/kg (280-300) Urine Osmolality 433 mOms/kg (500-800) Erythrocyte Sedimentation Rate 63 mm/hr (0-21) C-Reactive Protein 34.60 mg/dl (0-0.29) Vancomycin Level Trough 23.5 mcg/ml (SEE COMMENT) Test 09/30/16 19:27 10/02/16 05:27 10/02/16 09:05 10/02/16 09:48 Pro-B-Type Natriuretic Peptide 61083 pg/ml (0-900) Immature Granulocyte % (Auto) 6.1 % White Blood Count 17.10 K/uL (4.8-10.8) Red Blood Count 3.67 M/uL (4.2-5.4) Hemoglobin 11.2 g/dL (12.0-16.0) Hematocrit 32.0 % (37-47) Mean Corpuscular Volume 87.2 fL (80-100) Mean Corpuscular Hemoglobin 30.5 pg (25-34) Mean Corpuscular Hemoglobin Concent 35.0 g/dl (32-36) Platelet Count 306 K/uL (130-400) Mean Platelet Volume 8.8 fL (7.4-10.4) Neutrophils (%) (Auto) 75.0 % Lymphocytes (%) (Auto) 9.3 % Monocytes (%) (Auto) 8.8 % Eosinophils (%) (Auto) 0.6 % Basophils (%) (Auto) 0.2 % Neutrophils # (Auto) 12.83 K/uL (1.4-6.5) Lymphocytes # (Auto) 1.59 K/uL (1.2-3.4) Monocytes # (Auto) 1.51 K/uL (0.11-0.59) Eosinophils # (Auto) 0.10 K/uL (0-0.5) Basophils # (Auto) 0.03 K/uL (0-0.2) Immature Granulocyte # (Auto) 1.04 K/uL (0.00-0.02) Toxic Vacuolation OCCASIONAL Arterial Blood pH 7.43 (7.35-7.45) Arterial Blood Partial Pressure CO2 33 mmHg (35-46) Arterial Blood Partial Pressure O2 85 mm/Hg (80-95) Arterial Blood HCO3 21 mmol/L (19-24) Arterial Blood Oxygen Saturation 95.0 % (90-95) Arterial Blood Base Excess -2.5 mEq/L (-9-1.8) Arterial Blood Gas Delivery 2.5 LITERS [place] Test POS (POS) Test 10/02/16 10:10 10/03/16 04:41 10/03/16 07:44 10/03/16 20:14 Urine Color YELLOW Urine Appearance CLEAR (CLEAR) Urine pH 5.0 (4.5-7.5) Urine Specific [place] 1.020 (1.000-1.030) Urine Protein NEG (NEG) Urine Glucose (UA) NEG (NEG) Urine Ketones NEG (NEG) Urine Occult Blood NEG (NEG) Urine Nitrite NEG (NEG) Urine Bilirubin NEG (NEG) Urine Urobilinogen NEG (NEG) Urine Leukocyte Esterase NEG (NEG) Urine WBC (Auto) 1-5 /hpf (0-5) Urine RBC (Auto) 5-10 /hpf (0-4) Urine Hyaline Casts (Auto) 0 /lpf (0-5) Urine Epithelial Cells (Auto) 10-20 /lpf (0-5) Urine Bacteria (Auto) NEG (NEG) White Blood Count 20.23 K/uL (4.8-10.8) Red Blood Count 3.29 M/uL (4.2-5.4) Hemoglobin 9.7 g/dL (12.0-16.0) Hematocrit 28.7 % (37-47) Mean Corpuscular Volume 87.2 fL (80-100) Mean Corpuscular Hemoglobin 29.5 pg (25-34) Mean Corpuscular Hemoglobin Concent 33.8 g/dl (32-36) Platelet Count 302 K/uL (130-400) Mean Platelet Volume 8.6 fL (7.4-10.4) RDW Standard Deviation 46.2 fL (36.4-46.3) RDW Coefficient of Variation 14.6 % (11.5-14.5) Neutrophils % (Manual) 77.5 % Lymphocytes % (Manual) 10.4 % Monocytes % (Manual) 2.6 % Eosinophils % (Manual) 5.2 % Metamyelocytes % 1.7 % Myelocytes % 2.6 % Neutrophils # (Manual) 15.68 K/uL (1.4-6.5) Total Absolute Neutrophils 15.68 K/uL (1.4-6.5) Lymphocytes # (Manual) 2.10 K/uL (1.2-3.4) Total Absolute Lymphocytes 2.10 K/uL (1.2-3.4) Monocytes # (Manual) 0.53 K/uL (0.11-0.59) Eosinophils # (Manual) 1.05 K/uL (0-0.5) Metamyelocytes # 0.34 K/uL (0-0) Myelocytes # 0.53 K/uL (0-0) Toxic Granulation OCCASIONAL Echinocytes 1+ Anion Gap 10.0 mmol/L (3-11) Est Creatinine Clear Calc Drug Dose 20.8 ml/min Estimated GFR () 23.1 Estimated GFR (Non- 19.9 BUN/Creatinine Ratio 22.8 (10-20) Calcium Level 8.9 mg/dl (8.5-10.1) Prothrombin Time 22.4 SECONDS (9.0-12.0) Prothromb Time International Ratio 2.0 (0.9-1.1) Magnesium Level 2.5 mg/dl (1.8-2.4) Activated Partial Thromboplast Time 69.0 SECONDS (21.0-31.0) Partial Thromboplastin Ratio 2.7 Date/Time Source Procedure Growth Status 09/29/16 23:32 Blood Blood Culture - Preliminary NO GROWTH TO DATE. Resulted 09/27/16 00:00 Nasal MRSA DNA Surveillance Screen - Final Specimen Negative for MRSA by DNA Probe Complete 09/27/16 03:30 Urine , Clean Catch Urine Culture - Final Klebsiella Pneumoniae Complete Last 24 Hours Test 10/03/16 04:41 10/03/16 07:44 10/03/16 12:30 White Blood Count 20.23 K/uL Red Blood Count 3.29 M/uL Hemoglobin 9.7 g/dL Hematocrit 28.7 % Mean Corpuscular Volume 87.2 fL Mean Corpuscular Hemoglobin 29.5 pg Mean Corpuscular Hemoglobin Concent 33.8 g/dl Platelet Count 302 K/uL Mean Platelet Volume 8.6 fL RDW Standard Deviation 46.2 fL RDW Coefficient of Variation 14.6 % Neutrophils % (Manual) 77.5 % Lymphocytes % (Manual) 10.4 % Monocytes % (Manual) 2.6 % Eosinophils % (Manual) 5.2 % Metamyelocytes % 1.7 % Myelocytes % 2.6 % Neutrophils # (Manual) 15.68 K/uL Total Absolute Neutrophils 15.68 K/uL Lymphocytes # (Manual) 2.10 K/uL Total Absolute Lymphocytes 2.10 K/uL Monocytes # (Manual) 0.53 K/uL Eosinophils # (Manual) 1.05 K/uL Metamyelocytes # 0.34 K/uL Myelocytes # 0.53 K/uL Toxic Granulation OCCASIONAL Echinocytes 1+ Activated Partial Thromboplast Time 94.5 SECONDS 90.9 SECONDS Partial Thromboplastin Ratio 3.6 3.5 Sodium Level 133 mmol/L Potassium Level 4.5 mmol/L Chloride Level 101 mmol/L Carbon Dioxide Level 22 mmol/L Anion Gap 10.0 mmol/L Blood Urea Nitrogen 55 mg/dl Creatinine 2.40 mg/dl Est Creatinine Clear Calc Drug Dose 20.8 ml/min Estimated GFR () 23.1 Estimated GFR (Non- 19.9 BUN/Creatinine Ratio 22.8 Random Glucose 110 mg/dl Calcium Level 8.9 mg/dl Prothrombin Time 22.4 SECONDS Prothromb Time International Ratio 2.0 Magnesium Level 2.5 mg/dl Assessment & Plan 70 yo F presents with acute L hip septic arthritis, now with MSSA bacteremia and zee-sensitive Klebsiella UTI. Subsequently went into afib with RVR on 09/28, which was a new diagnosis for her. Overnight prior to afib seen on EKG she was tachy into the 130s, and was thought to be dry. Given 1L IVF with improvement in HR to 90s. HR went back into 150s around 700am and EKG revealed afib with RVR. She was asymptomatic at the time. Transferred to telemetry and given Diltiazem 10mg IV bolus, then 15mg IV bolus with improvement in HR to the 110s. Required a diltiazem drip with transition to PO diltiazem. Became fluid overloaded and IVF/salt tabs stopped. Began diuresis with Lasix with good result. Previous TTE performed this admission reveals EF 60-65%, no wall motion abnormalities, no ASD and no valvular pathology or vegetation in setting of S aureus bacteremia. Hypoxia persisted and pulm was consulted. Agrees hypoxia most likely 2/2 volume overload and improving and recommends continuing incentive spirometry. 1. Afib-new onset. Coumadin started, will titrate based on tomorrow's INR result per nomogram. Heparin stopped. Diltiazem increased to 180mg this morning with improved control in heart rate. Cardiology agrees with plan. 2. Hypoxia 2/2 acute fluid overload from acute diastolic heart failure exacerbation-compensated. Weaned off oxygen completely with resolution of her cough and clear lungs on exam. 3. Sepsis 2/2 L hip septic arthritis, MSSA and Klebsiella UTI-resuscitated. Aspiration under fluoroscopy was unsuccessful. Per PM, pt is not a candidate for an injection in setting of acute infection. PO pain meds were adjusted for better relief and are controlling pain. 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 Will have her followup as outpatient for this. Cont Ancef for now with PICC placement and plan for 6 weeks abx moving forward. 4. RASHEL-slight improvement in kidney function today off lisinopril, HCTZ and lasix. cont to hold. Apprec Nephro recs. 6. Anemia-chronic, no indication for transfusion at this time. 8. HTN-controlled, lisinopril held in setting of RASHEL and HCTZ held in setting of low Na. 9. Klebsiella BRB-nge-ynonapcxx, received several days of abx at this time, changing abx as above. Asymptomatic. 10. Leukocytosis-elevated in setting of infection. Not ill-appearing. Cont to monitor. 11. Hyponatremia-improved off HCTZ. Nephro stopped salt tabs. Trend PRP. 12. Ambulatory dysfunction 2/2 pain DVT proph-coumadin Full Code Dispo-cont tele, will go to rehab likely 2-3 days, ref[facility] have been placed [facility] Hospital[facility] Consultants: ID ORTHO NEPHRO CARDS PULM Current Inpatient Medications: Current Inpatient Medications Medications (Trade) Dose Ordered Sig/Viviane Route Start Time Stop Time Status Last Admin Dose Admin Acetaminophen (Tylenol Tab) 650 mg Q4H PRN PO 09/27/16 00:30 10/27/16 00:29 Lidocaine (Lidoderm Patch 5%) 1 patch QAM TD 09/28/16 09:00 10/28/16 08:59 10/01/16 07:54 1 PATCH Ondansetron HCl (Zofran Inj) 4 mg Q6H PRN IV 09/27/16 00:30 10/27/16 00:29 10/03/16 10:57 4 MG Lorazepam (Ativan Inj) 0.5 mg Q4H PRN IV 09/27/16 00:30 10/27/16 00:29 09/29/16 12:03 0.5 MG Miscellaneous (Remove Lidoderm Patch) 1 ea DAILY@21 N/A 09/27/16 14:00 10/27/16 13:59 10/01/16 20:44 1 EA Gabapentin (Neurontin Cap) 300 mg HS PO 09/27/16 21:00 10/27/16 20:59 10/02/16 19:54 300 MG Multivitamins/ Minerals (Multivitamin W/ Minerals Tab) 1 tab DAILY PO 09/27/16 09:00 10/27/16 08:59 10/03/16 08:59 1 TAB Tramadol HCl (Ultram Tab) pain not relieved by ibupropen/tylenol Q6H PRN PO 09/27/16 00:30 10/27/16 00:29 10/03/16 09:00 50 MG Travoprost (Travatan Z) 1 drops HS OPB 09/27/16 21:00 10/27/16 20:59 10/02/16 19:54 1 DROPS Docusate Sodium (coLACE CAP) 100 mg DAILY PO 09/28/16 09:00 10/28/16 08:59 10/02/16 08:10 100 MG Lorazepam 0.5 mg/ Syringe 1 ml @ 1 mls/min Q4H PRN IV 09/27/16 01:15 10/27/16 01:14 Morphine Sulfate (MoRPHine SULFATE INJ) 4 mg Q4HWA PRN IV 09/27/16 15:45 10/11/16 15:44 10/03/16 10:52 4 MG Famotidine (Pepcid Tab) 20 mg DAILY PRN PO 09/27/16 22:45 10/27/16 22:44 Gabapentin (Neurontin Cap) 300 mg BID@0900,1400 PO 09/29/16 09:00 10/27/16 08:59 10/03/16 13:58 300 MG Nortriptyline HCl (Pamelor Cap) 25 mg HS PO 09/28/16 21:00 10/28/16 20:59 10/02/16 19:54 25 MG Hydromorphone HCl (Dilaudid Tab) 2 mg Q6H PRN PO 09/28/16 15:00 10/12/16 14:59 10/02/16 22:28 2 MG Heparin Sodium/ Dextrose 500 ml @ 23 mls/hr [id number] PRN IV 09/29/16 09:45 10/29/16 09:44 10/03/16 14:00 23 MLS/HR Ipratropium [place] (Atrovent 0.02% 0.5MG/2.5ML Neb) 0.5 mg Q4H PRN INH 09/29/16 22:45 10/29/16 22:44 Levalbuterol (Xopenex 1.25MG/ 0.5ML Neb) 1.25 mg Q4H PRN INH 09/29/16 22:45 10/29/16 22:44 Guaifenesin (Mucinex Contr Rel Tab) 600 mg Q12 PO 09/30/16 09:00 10/30/16 08:59 10/03/16 08:59 600 MG Miscellaneous Information 1 ea UD PRN N/A 09/30/16 14:45 10/30/16 14:44 Polyethylene (Miralax Powder Packet) 17 gm Q24H PRN PO 09/30/16 18:15 10/30/16 18:14 10/01/16 17:54 17 GM Bisacodyl (Dulcolax Supp) 10 mg Q24H PRN MD 09/30/16 18:15 10/30/16 18:14 Cefazolin Sodium 1000 mg/Dextrose 55 ml @ 110 mls/hr Q12H IV 10/01/16 04:00 10/11/16 03:59 10/03/16 15:55 110 MLS/HR Warfarin Sodium (Coumadin Tab) 5 mg DAILY@16 PO 10/02/16 16:00 11/01/16 15:59 10/03/16 15:55 5 MG Benzonatate (Tessalon Perles Cap) 100 mg Q8H PRN PO 10/02/16 02:00 11/01/16 01:59 10/03/16 09:00 100 MG Heparin Sodium (Porcine) (Heparin 10 Unit/ ml 5 ml Flush) 5 ml PRN PRN FLUSH 10/02/16 23:45 11/01/16 23:44 Diltiazem HCl (Cardizem Cd Cap) 180 mg QAM PO 10/03/16 09:00 11/02/16 08:59 10/03/16 09:00 180 MG
[2016-10-04] VITALS (10 sets, daily range): BP systolic 107–140; BP diastolic 61–81; PULSE 93–105; TEMP 36.5–37; O2SAT 94–99
[2016-10-04] MEDS: HYDROmorphone HCL 2 MG TAB PO PRN ×2 (02:27→22:26)
[2016-10-04] MEDS: BENZONATATE 100MG CAP PO PRN ×3 (02:27→22:20)
[2016-10-04] MEDS: CEFAZOLIN IV 1,000 MG in DEXTROSE 5% 50ML 50 ML IV SCH (04:04)
[2016-10-04 05:29] LABS: HEMATOCRIT 26.8 % (37-47); MEAN CELL VOLUME 88.2 fL (80-100); MEAN CORPUSCULAR HEMOGLOBIN 29.9 pg (25-34); MEAN PLATELET VOLUME 8.5 fL (7.4-10.4); PLATELET COUNT 289 K/uL (130-400); RED BLOOD COUNT 3.04 M/uL (4.2-5.4); WHITE BLOOD COUNT 20.72 K/uL (4.8-10.8)
[2016-10-04 05:50] LABS: INR 2.2 (0.9-1.1)
[2016-10-04 05:59] LABS: COMPLETE YES; ECHINOCYTES 1+; EOSINOPHIL % 3.5 %; LYMPH ABS # 2.15 K/uL (1.2-3.4); LYMPHOCYTE % 10.4 %; META ABS # 0.54 K/uL (0-0); METAMYELOCYTE % 2.6 %; MYELOCYTE % 0.9 %; NEUTROPHILS % 79.1 %
[2016-10-04 06:23] LABS: BUN/CREATININE RATIO 22.9 (10-20); CALCIUM 8.8 mg/dl (8.5-10.1); POTASSIUM 4.4 mmol/L (3.5-5.1)
[2016-10-04] MEDS: CEROVITE ADV FORMULA TAB PO SCH (08:30)
[2016-10-04] MEDS: DILTIAZEM HCL 180 MG CAPCR PO SCH (08:30)
[2016-10-04] MEDS: GUAIFENESIN 600 MG TABCR PO SCH ×2 (08:30→21:49)
[2016-10-04] MEDS: GABAPENTIN 300 MG CAP PO SCH ×3 (08:31→21:48)
[2016-10-04] MEDS: LIDODERM (LIDOCAINE) PATCH 5% TD SCH (08:31)
[2016-10-04] MEDS: TRAMADOL HCL 50 MG TAB PO PRN ×2 (08:32→17:24)
[2016-10-04] MEDS ORDERED: DOCUSATE SODIUM 100 MG CAP PO PRN (09:00)
--- NOTE | 2016-10-04 10:32 | PULMONARY PROGRESS NOTE ---
DATE: 10/04/2016 DATE: 10/04/2016 TIME: 10:00 a.m. SUBJECTIVE: The patient is generally feeling reasonably well. She had one episode of coughing yesterday or last evening and she did expectorate on 1 occasion some mucus. She states it was larger quantity than it had been before. She did not cough significantly overnight or this morning. She is not short of breath. She continues to feel a little bit stronger on a daily basis. Overall, she continues to feel slightly better. OBJECTIVE: GENERAL: The patient appeared comfortable at rest. VITAL SIGNS: Temperature is 36.5. EARS, NOSE, THROAT: Unremarkable. HEART: Heart rate is 106. The rhythm is irregularly irregular and is compatible with atrial fibrillation. The patient did state she thought she went into sinus rhythm for a while. She has thought that based upon her review of the telemetry. 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 Auscultation of the lung delaney revealed them to be clear. CHEST: Respiratory rate was 20 breaths per minute. Desaturations on room air is 94%. EXTREMITIES: Revealed +1 edema of both lower extremities. Her intake and output for yesterday was 2100 output and 1164 input. LABORATORY DATA: White count today is still elevated at 20.72. Hemoglobin is 9.1. Platelets 289,000. INR today is 2.2. Electrolytes today show sodium 133, potassium 4.4, chloride 101, bicarb 23. BUN is 46 and yesterday had been 55. The creatinine today is 2.0 and had been 2.4 yesterday. IMPRESSIONS: 1. Staph aureus bacteremia. 2. Atrial fibrillation. 3. 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 4. Scoliosis. 5. Renal insufficiency. 6. Hyponatremia. 7. Urinary tract infection with Klebsiella. COMMENTS: The patient's respiratory status is stable. Lungs are clear. Oxygen saturation on room air is adequate at 94%. She has persisted with significant leukocytosis despite the antibiotic therapy. She seems stable from respiratory perspective. Will sign off for now, but would be happy to reevaluate her if requested.
[2016-10-04] MEDS: MoRPHine SULFATE 4 MG/ML 1 ML CARP\\VIAL IV PRN ×2 (10:48→20:39)
[2016-10-04] MEDS: ONDANSETRON INJ 2 MG/ML 2 ML VIAL IV PRN ×2 (10:53→20:40)
--- NOTE | 2016-10-04 14:07 | PROGRESS NOTE ---
DATE: 10/04/2016 SUBJECTIVE: The patient is a 70-year-old female admitted with Staph aureus bacteremia from a septic arthritis of the left hip along with an incidental Klebsiella UTI. She is being treated by the infectious disease service. She also had paroxysmal atrial fibrillation with RVR. Currently, her heart rates are well controlled and she is in and out of sinus rhythm. She is currently resting comfortably in a chair. OBJECTIVE: GENERAL: She is alert and oriented. VITAL SIGNS: Blood pressure is 115/70, pulse is irregular at 90 beats per minute. She is afebrile. HEENT: She is normocephalic. Pupils are equal and reactive to light. Extraocular muscles are intact bilaterally. NECK: The neck veins are flat. Carotids have good upstrokes bilaterally without bruits. Thyroid is nonpalpable. RESPIRATORY: Breath sounds equal bilaterally and clear to auscultation. CARDIOVASCULAR: Heart has an irregular rhythm. Normal S1, S2, no S3, S4. No cardiac rubs or murmurs. GASTROINTESTINAL: Abdomen is soft, nontender without organomegaly. EXTREMITIES: Free of edema, digit clubbing, or cyanosis. NEUROLOGIC: Grossly intact. SKIN: Warm to touch. LYMPH NODES: Negative to palpation. IMPRESSION: 1. Paroxysmal atrial fibrillation. 2. Staph bacteremia due to a septic left hip. 3. Klebsiella urinary tract infection. 4. Large hiatal hernia. RECOMMENDATIONS: I would continue the patient on diltiazem as well as transitioning her to warfarin. As I stated above, she is intermittently in sinus rhythm and I am hopeful once her infection is well controlled that she will maintain sinus rhythm on her own.
--- NOTE | 2016-10-04 14:15 | Nephrology Progress Note ---
Nephrology Progress Note Date of Service: Oct 04, 2016. Subjective 70 yo female with chronic degenerative disease of the hip/uti/bacteremia/ hyponatremia/afib/sylvia. pt oob to chair. breathing much better on room air. creatinine improved to 2. sodium levels are better. continues to have pain in the hip and difficult for her to walk. Objective Date Time Temp Pulse Resp B/P (MAP) Pulse Ox O2 Delivery O2 Flow Rate FiO2 10/04/16 12:00 Room Air 10/04/16 10:33 36.6 96 20 112/78 (89) 94 Room Air 10/04/16 08:00 Room Air 10/04/16 07:04 36.5 97 20 140/81 (100) 94 Room Air 10/04/16 04:00 96 Room Air 10/04/16 03:51 36.9 102 20 116/70 (85) 94 Room Air 10/04/16 00:01 36.9 100 20 124/65 (84) 96 Room Air 10/04/16 00:00 94 Room Air 10/03/16 20:00 91 Room Air 10/03/16 19:38 37.1 103 26 139/84 (102) 91 Room Air 10/03/16 16:00 100 Room Air 10/03/16 15:01 37.1 96 18 136/68 (90) 95 Room Air Physical Exam: General-aaox3 Eyes-no scleral icterus ENT-mmm Neck-supple Lungs-clear Heart-irregularly irregular Abdomen-bs+ s/nt/nd Extremities-no c/c/e Neuro-nonfocal Current Inpatient Medications Medications (Trade) Dose Ordered Sig/Viviane Route Start Time Stop Time Status Last Admin Dose Admin Acetaminophen (Tylenol Tab) 650 mg Q4H PRN PO 09/27/16 00:30 10/27/16 00:29 Lidocaine (Lidoderm Patch 5%) 1 patch QAM TD 09/28/16 09:00 10/28/16 08:59 10/01/16 07:54 1 PATCH Ondansetron HCl (Zofran Inj) 4 mg Q6H PRN IV 09/27/16 00:30 10/27/16 00:29 10/04/16 10:53 4 MG Lorazepam (Ativan Inj) 0.5 mg Q4H PRN IV 09/27/16 00:30 10/27/16 00:29 09/29/16 12:03 0.5 MG Miscellaneous (Remove Lidoderm Patch) 1 ea DAILY@21 N/A 09/27/16 14:00 10/27/16 13:59 10/01/16 20:44 1 EA Gabapentin (Neurontin Cap) 300 mg HS PO 09/27/16 21:00 10/27/16 20:59 10/03/16 19:54 300 MG Multivitamins/ Minerals (Multivitamin W/ Minerals Tab) 1 tab DAILY PO 09/27/16 09:00 10/27/16 08:59 10/04/16 08:30 1 TAB Tramadol HCl (Ultram Tab) pain not relieved by ibupropen/tylenol Q6H PRN PO 09/27/16 00:30 10/27/16 00:29 10/04/16 08:32 50 MG Travoprost (Travatan Z) 1 drops HS OPB 09/27/16 21:00 10/27/16 20:59 10/03/16 19:58 1 DROPS Lorazepam 0.5 mg/ Syringe 1 ml @ 1 mls/min Q4H PRN IV 09/27/16 01:15 10/27/16 01:14 Morphine Sulfate (MoRPHine SULFATE INJ) 4 mg Q4HWA PRN IV 09/27/16 15:45 10/11/16 15:44 10/04/16 10:48 4 MG Famotidine (Pepcid Tab) 20 mg DAILY PRN PO 09/27/16 22:45 10/27/16 22:44 Gabapentin (Neurontin Cap) 300 mg BID@0900,1400 PO 09/29/16 09:00 10/27/16 08:59 10/04/16 08:31 300 MG Nortriptyline HCl (Pamelor Cap) 25 mg HS PO 09/28/16 21:00 10/28/16 20:59 10/03/16 19:52 25 MG Hydromorphone HCl (Dilaudid Tab) 2 mg Q6H PRN PO 09/28/16 15:00 10/12/16 14:59 10/04/16 02:27 2 MG Ipratropium [place] (Atrovent 0.02% 0.5MG/2.5ML Neb) 0.5 mg Q4H PRN INH 09/29/16 22:45 10/29/16 22:44 Levalbuterol (Xopenex 1.25MG/ 0.5ML Neb) 1.25 mg Q4H PRN INH 09/29/16 22:45 10/29/16 22:44 Guaifenesin (Mucinex Contr Rel Tab) 600 mg Q12 PO 09/30/16 09:00 10/30/16 08:59 10/04/16 08:30 600 MG Miscellaneous Information 1 ea UD PRN N/A 09/30/16 14:45 10/30/16 14:44 Polyethylene (Miralax Powder Packet) 17 gm Q24H PRN PO 09/30/16 18:15 10/30/16 18:14 10/01/16 17:54 17 GM Bisacodyl (Dulcolax Supp) [address] 09/30/16 18:15 10/30/16 18:14 Cefazolin Sodium 1000 mg/Dextrose 55 ml @ 110 mls/hr Q12H IV 10/01/16 04:00 10/11/16 03:59 10/04/16 04:04 110 MLS/HR Warfarin Sodium (Coumadin Tab) 5 mg DAILY@16 PO 10/02/16 16:00 11/01/16 15:59 10/03/16 15:55 5 MG Benzonatate (Tessalon Perles Cap) 100 mg Q8H PRN PO 10/02/16 02:00 11/01/16 01:59 10/04/16 02:27 100 MG Heparin Sodium (Porcine) (Heparin 10 Unit/ ml 5 ml Flush) 5 ml PRN PRN FLUSH 10/02/16 23:45 11/01/16 23:44 Diltiazem HCl (Cardizem Cd Cap) 180 mg QAM PO 10/03/16 09:00 11/02/16 08:59 10/04/16 08:30 180 MG Docusate Sodium (coLACE CAP) 100 mg DAILY PRN PO 10/04/16 09:00 10/28/16 08:59 Last 24 Hours Test 10/03/16 20:14 10/04/16 05:03 Activated Partial Thromboplast Time 69.0 SECONDS Partial Thromboplastin Ratio 2.7 White Blood Count 20.72 K/uL Red Blood Count 3.04 M/uL Hemoglobin 9.1 g/dL Hematocrit 26.8 % Mean Corpuscular Volume 88.2 fL Mean Corpuscular Hemoglobin 29.9 pg Mean Corpuscular Hemoglobin Concent 34.0 g/dl Platelet Count 289 K/uL Mean Platelet Volume 8.5 fL RDW Standard Deviation 48.4 fL RDW Coefficient of Variation 14.9 % Neutrophils % (Manual) 79.1 % Lymphocytes % (Manual) 10.4 % Monocytes % (Manual) 3.5 % Eosinophils % (Manual) 3.5 % Metamyelocytes % 2.6 % Myelocytes % 0.9 % Neutrophils # (Manual) 16.39 K/uL Total Absolute Neutrophils 16.39 K/uL Lymphocytes # (Manual) 2.15 K/uL Total Absolute Lymphocytes 2.15 K/uL Monocytes # (Manual) 0.73 K/uL Eosinophils # (Manual) 0.73 K/uL Metamyelocytes # 0.54 K/uL Myelocytes # 0.19 K/uL Echinocytes 1+ Prothrombin Time 24.0 SECONDS Prothromb Time International Ratio 2.2 Sodium Level 133 mmol/L Potassium Level 4.4 mmol/L Chloride Level 101 mmol/L Carbon Dioxide Level 23 mmol/L Anion Gap 9.0 mmol/L Blood Urea Nitrogen 46 mg/dl Creatinine 2.00 mg/dl Est Creatinine Clear Calc Drug Dose 24.9 ml/min Estimated GFR () 28.8 Estimated GFR (Non- 24.8 BUN/Creatinine Ratio 22.9 Random Glucose 103 mg/dl Calcium Level 8.8 mg/dl Assessment & Plan [id number] levels above 130 which is good. on fluid restriction of 1500cc. no salt tabs or lasix at this time. sodium of 133 today. efn-[id number]-[id number]-creatinine has peaked and trending down. pulmonary-renal syndrome on the differential and obtained serologies which are pending. however more likely diagnosis is atn and creatinine has peaked and trending down and lungs are breathing better and she sounds more clear. ok from renal perspective to go home once medically cleared with downward trend noted. would repeat bmp again in a week. hopefully eventually improves back to baseline.
--- NOTE | 2016-10-04 14:54 | Progress Note ---
Subjective Date of Service: Oct 04, 2016. Subjective Pt evaluation today including: conversation w/ patient, conversation w/ family , physical exam, chart review, lab review pt seen in followup, oob to chair. feeling much better. denies sob, cough, cp. fluid restriction. tolerating abx. repeat blood cultures negative. afebrile. wbc elevated but clinically improved. creat down to 2.0. c/o hip pain but improved. urinating without difficulty. all remaining ros reviewed and are negative. Problem List Medical Problems: (1) Abnormal white blood cell count Status: Acute (2) Effusion, left hip Status: Acute (3) Fall Status: Acute (4) Fall Status: Acute (5) Hyponatremia Status: Acute (6) Left hip pain Status: Acute (7) Lumbar contusion Status: Acute (8) Lumbar contusion Status: Acute (9) Pelvic fracture Status: Acute (10) Pelvic fracture Status: Acute (11) UTI (urinary tract infection) Status: Acute Objective Vital Signs Date Time Temp Pulse Resp B/P (MAP) Pulse Ox O2 Delivery O2 Flow Rate FiO2 10/04/16 12:00 Room Air 10/04/16 10:33 36.6 96 20 112/78 (89) 94 Room Air 10/04/16 08:00 Room Air 10/04/16 07:04 36.5 97 20 140/81 (100) 94 Room Air 10/04/16 04:00 96 Room Air 10/04/16 03:51 36.9 102 20 116/70 (85) 94 Room Air 10/04/16 00:01 36.9 100 20 124/65 (84) 96 Room Air 10/04/16 00:00 94 Room Air 10/03/16 20:00 91 Room Air 10/03/16 19:38 37.1 103 26 139/84 (102) 91 Room Air 10/03/16 16:00 100 Room Air 10/03/16 15:01 37.1 96 18 136/68 (90) 95 Room Air Physical Exam General Appearance: WD/WN, no apparent distress Eyes: normal inspection, EOMI Neck: supple Respiratory/Chest: lungs clear, normal breath sounds, no respiratory distress Cardiovascular: regular rate, rhythm, no edema Abdomen: non tender, soft Extremities: non-tender, normal inspection, no pedal edema Neurologic/Psychiatric: alert, oriented x 3 Laboratory Results Item Value Date Time Blood Culture - Preliminary Resulted 09/29/16 2332 Blood NO GROWTH TO DATE. Blood Culture - Preliminary Resulted 09/29/16 2332 Blood NO GROWTH TO DATE. Blood Culture - Preliminary Resulted 09/28/16 1551 Blood NO GROWTH TO DATE. Blood Culture - Preliminary Resulted 09/28/16 1546 Blood NO GROWTH TO DATE. Blood Culture - Final Complete 09/26/16 2313 Blood Staphylococcus Aureus Blood Culture - Final Complete 09/26/16 2319 Blood Staphylococcus Aureus Last 24 Hours Test 10/03/16 20:14 10/04/16 05:03 Activated Partial Thromboplast Time 69.0 SECONDS Partial Thromboplastin Ratio 2.7 White Blood Count 20.72 K/uL Red Blood Count 3.04 M/uL Hemoglobin 9.1 g/dL Hematocrit 26.8 % Mean Corpuscular Volume 88.2 fL Mean Corpuscular Hemoglobin 29.9 pg Mean Corpuscular Hemoglobin Concent 34.0 g/dl Platelet Count 289 K/uL Mean Platelet Volume 8.5 fL RDW Standard Deviation 48.4 fL RDW Coefficient of Variation 14.9 % Neutrophils % (Manual) 79.1 % Lymphocytes % (Manual) 10.4 % Monocytes % (Manual) 3.5 % Eosinophils % (Manual) 3.5 % Metamyelocytes % 2.6 % Myelocytes % 0.9 % Neutrophils # (Manual) 16.39 K/uL Total Absolute Neutrophils 16.39 K/uL Lymphocytes # (Manual) 2.15 K/uL Total Absolute Lymphocytes 2.15 K/uL Monocytes # (Manual) 0.73 K/uL Eosinophils # (Manual) 0.73 K/uL Metamyelocytes # 0.54 K/uL Myelocytes # 0.19 K/uL Echinocytes 1+ Prothrombin Time 24.0 SECONDS Prothromb Time International Ratio 2.2 Sodium Level 133 mmol/L Potassium Level 4.4 mmol/L Chloride Level 101 mmol/L Carbon Dioxide Level 23 mmol/L Anion Gap 9.0 mmol/L Blood Urea Nitrogen 46 mg/dl Creatinine 2.00 mg/dl Est Creatinine Clear Calc Drug Dose 24.9 ml/min Estimated GFR () 28.8 Estimated GFR (Non- 24.8 BUN/Creatinine Ratio 22.9 Random Glucose 103 mg/dl Calcium Level 8.8 mg/dl Assessment and Plan (1) Staphylococcus aureus septicemia Assessment & Plan: repeat blood cultures negative, ok for picc from ID standpoint. pt unclear if she will be d/c to rehab. she can continue on ancef however, if she is to be d/c home and would prefer once daily dosing, she could be changed to ctx 2g daily. will need 6 weeks from first negative culture, tentative stop date 11/09. Will need weekly cbc, cmp, esr while on abx. can follow with ID as well post d/c.
--- NOTE | 2016-10-04 16:53 | Progress Note ---
Medicine Progress Note Date & Time of Visit: Oct 04, 2016 at 16:37. Subjective tolerating PO feeling well pain in L hip persistent but not worse no fevers or chills discussed plan for discharge with her and also called her daughter at her request and discussed the dc plan with her, also. Received a callback from office of Dr. Milton bishop's brother stating he is currently out of the country. I gave daughter my cell and told her to call me with any questions. Objective Last 8 Hrs Date Time Temp Pulse Resp B/P (MAP) Pulse Ox O2 Delivery O2 Flow Rate FiO2 10/04/16 14:57 36.7 93 17 130/63 (85) 99 Room Air 10/04/16 12:00 Room Air 10/04/16 10:33 36.6 96 20 112/78 (89) 94 Room Air Physical Exam: GEN: WNWD, in no acute distress, alert and appropriate HEENT: NC/AT, pupils are equal and round bilaterally, normal sclerae, MMM CARDIO: reg rate, irregular rhythm, S1/2 heard without m/g/r LUNGS: CTAB without crackles, wheezes or rales. Good air movement. ABD: soft, non-tender, non-distended, no rebound or guarding, +BS EXTREMITY: RP and DP palpable 2+ bilat, no LE swelling or edema, extremities are warm and well-perfused NEURO: CN 2-12 grossly intact, no gross focal deficits. MUSC: 5/5 strength in lower extremities, no gross focal deficits. SKIN: warm and dry Laboratory Results: 10/04/16 05:03 Red Blood Count 3.04, Mean Corpuscular Volume 88.2, Mean Corpuscular Hemoglobin 29.9, Mean Corpuscular Hemoglobin Concent 34.0, Mean Platelet Volume 8.5 10/04/16 05:03 Test 09/26/16 20:15 09/26/16 23:19 09/26/16 23:30 09/27/16 01:34 Total Bilirubin 0.7 mg/dl (0.2-1) Direct Bilirubin 0.2 mg/dl (0-0.2) Aspartate Amino Transf (AST/SGOT) 31 U/L (15-37) Alanine Aminotransferase (ALT/SGPT) 33 U/L (12-78) Alkaline Phosphatase 72 U/L (45-117) Total Protein 7.3 gm/dl (6.4-8.2) Albumin 3.8 gm/dl (3.4-5.0) Lipase 80 U/L (73-393) Thyroid Stimulating Hormone (TSH) 2.290 uIu/ml (0.300-4.500) Lyme Disease IgG Antibody NEG (NEG) Lyme Disease IgM Antibody NEG (NEG) Lactic Acid Level 1.4 mmol/L (0.4-2.0) Urine Random Sodium 35 mEq/L Ethyl Alcohol mg/dL < 3.0 mg/dl (0-3) Test 09/28/16 06:19 09/28/16 17:35 09/29/16 06:33 09/30/16 13:12 Dohle Bodies 1+ Osmolality 257 mOsm/kg (280-300) Urine Osmolality 433 mOms/kg (500-800) Erythrocyte Sedimentation Rate 63 mm/hr (0-21) C-Reactive Protein 34.60 mg/dl (0-0.29) Vancomycin Level Trough 23.5 mcg/ml (SEE COMMENT) Test 09/30/16 19:27 10/02/16 05:27 10/02/16 09:05 10/02/16 09:48 Pro-B-Type Natriuretic Peptide 11960 pg/ml (0-900) Immature Granulocyte % (Auto) 6.1 % White Blood Count 17.10 K/uL (4.8-10.8) Red Blood Count 3.67 M/uL (4.2-5.4) Hemoglobin 11.2 g/dL (12.0-16.0) Hematocrit 32.0 % (37-47) Mean Corpuscular Volume 87.2 fL (80-100) Mean Corpuscular Hemoglobin 30.5 pg (25-34) Mean Corpuscular Hemoglobin Concent 35.0 g/dl (32-36) Platelet Count 306 K/uL (130-400) Mean Platelet Volume 8.8 fL (7.4-10.4) Neutrophils (%) (Auto) 75.0 % Lymphocytes (%) (Auto) 9.3 % Monocytes (%) (Auto) 8.8 % Eosinophils (%) (Auto) 0.6 % Basophils (%) (Auto) 0.2 % Neutrophils # (Auto) 12.83 K/uL (1.4-6.5) Lymphocytes # (Auto) 1.59 K/uL (1.2-3.4) Monocytes # (Auto) 1.51 K/uL (0.11-0.59) Eosinophils # (Auto) 0.10 K/uL (0-0.5) Basophils # (Auto) 0.03 K/uL (0-0.2) Immature Granulocyte # (Auto) 1.04 K/uL (0.00-0.02) Toxic Vacuolation OCCASIONAL Arterial Blood pH 7.43 (7.35-7.45) Arterial Blood Partial Pressure CO2 33 mmHg (35-46) Arterial Blood Partial Pressure O2 85 mm/Hg (80-95) Arterial Blood HCO3 21 mmol/L (19-24) Arterial Blood Oxygen Saturation 95.0 % (90-95) Arterial Blood Base Excess -2.5 mEq/L (-9-1.8) Arterial Blood Gas Delivery 2.5 LITERS Hipolito Test POS (POS) Test 10/02/16 10:10 10/03/16 04:41 10/03/16 07:44 10/03/16 20:14 Urine Color YELLOW Urine Appearance CLEAR (CLEAR) Urine pH 5.0 (4.5-7.5) Urine Specific [place] 1.020 (1.000-1.030) Urine Protein NEG (NEG) Urine Glucose (UA) NEG (NEG) Urine Ketones NEG (NEG) Urine Occult Blood NEG (NEG) Urine Nitrite NEG (NEG) Urine Bilirubin NEG (NEG) Urine Urobilinogen NEG (NEG) Urine Leukocyte Esterase NEG (NEG) Urine WBC (Auto) 1-5 /hpf (0-5) Urine RBC (Auto) 5-10 /hpf (0-4) Urine Hyaline Casts (Auto) 0 /lpf (0-5) Urine Epithelial Cells (Auto) 10-20 /lpf (0-5) Urine Bacteria (Auto) NEG (NEG) Toxic Granulation OCCASIONAL Magnesium Level 2.5 mg/dl (1.8-2.4) Activated Partial Thromboplast Time 69.0 SECONDS (21.0-31.0) Partial Thromboplastin Ratio 2.7 Test 10/04/16 05:03 White Blood Count 20.72 K/uL (4.8-10.8) Red Blood Count 3.04 M/uL (4.2-5.4) Hemoglobin 9.1 g/dL (12.0-16.0) Hematocrit 26.8 % (37-47) Mean Corpuscular Volume 88.2 fL (80-100) Mean Corpuscular Hemoglobin 29.9 pg (25-34) Mean Corpuscular Hemoglobin Concent 34.0 g/dl (32-36) Platelet Count 289 K/uL (130-400) Mean Platelet Volume 8.5 fL (7.4-10.4) RDW Standard Deviation 48.4 fL (36.4-46.3) RDW Coefficient of Variation 14.9 % (11.5-14.5) Neutrophils % (Manual) 79.1 % Lymphocytes % (Manual) 10.4 % Monocytes % (Manual) 3.5 % Eosinophils % (Manual) 3.5 % Metamyelocytes % 2.6 % Myelocytes % 0.9 % Neutrophils # (Manual) 16.39 K/uL (1.4-6.5) Total Absolute Neutrophils 16.39 K/uL (1.4-6.5) Lymphocytes # (Manual) 2.15 K/uL (1.2-3.4) Total Absolute Lymphocytes 2.15 K/uL (1.2-3.4) Monocytes # (Manual) 0.73 K/uL (0.11-0.59) Eosinophils # (Manual) 0.73 K/uL (0-0.5) Metamyelocytes # 0.54 K/uL (0-0) Myelocytes # 0.19 K/uL (0-0) Echinocytes 1+ Prothrombin Time 24.0 SECONDS (9.0-12.0) Prothromb Time International Ratio 2.2 (0.9-1.1) Anion Gap 9.0 mmol/L (3-11) Est Creatinine Clear Calc Drug Dose 24.9 ml/min Estimated GFR () 28.8 Estimated GFR (Non- 24.8 BUN/Creatinine Ratio 22.9 (10-20) Calcium Level 8.8 mg/dl (8.5-10.1) Date/Time Source Procedure Growth Status 09/29/16 23:32 Blood Blood Culture - Preliminary NO GROWTH TO DATE. Resulted 09/27/16 00:00 Nasal MRSA DNA Surveillance Screen - Final Specimen Negative for MRSA by DNA Probe Complete 09/27/16 03:30 Urine , Clean Catch Urine Culture - Final Klebsiella Pneumoniae Complete Last 24 Hours Test 10/03/16 20:14 10/04/16 05:03 Activated Partial Thromboplast Time 69.0 SECONDS Partial Thromboplastin Ratio 2.7 White Blood Count 20.72 K/uL Red Blood Count 3.04 M/uL Hemoglobin 9.1 g/dL Hematocrit 26.8 % Mean Corpuscular Volume 88.2 fL Mean Corpuscular Hemoglobin 29.9 pg Mean Corpuscular Hemoglobin Concent 34.0 g/dl Platelet Count 289 K/uL Mean Platelet Volume 8.5 fL RDW Standard Deviation 48.4 fL RDW Coefficient of Variation 14.9 % Neutrophils % (Manual) 79.1 % Lymphocytes % (Manual) 10.4 % Monocytes % (Manual) 3.5 % Eosinophils % (Manual) 3.5 % Metamyelocytes % 2.6 % Myelocytes % 0.9 % Neutrophils # (Manual) 16.39 K/uL Total Absolute Neutrophils 16.39 K/uL Lymphocytes # (Manual) 2.15 K/uL Total Absolute Lymphocytes 2.15 K/uL Monocytes # (Manual) 0.73 K/uL Eosinophils # (Manual) 0.73 K/uL Metamyelocytes # 0.54 K/uL Myelocytes # 0.19 K/uL Echinocytes 1+ Prothrombin Time 24.0 SECONDS Prothromb Time International Ratio 2.2 Sodium Level 133 mmol/L Potassium Level 4.4 mmol/L Chloride Level 101 mmol/L Carbon Dioxide Level 23 mmol/L Anion Gap 9.0 mmol/L Blood Urea Nitrogen 46 mg/dl Creatinine 2.00 mg/dl Est Creatinine Clear Calc Drug Dose 24.9 ml/min Estimated GFR () 28.8 Estimated GFR (Non- 24.8 BUN/Creatinine Ratio 22.9 Random Glucose 103 mg/dl Calcium Level 8.8 mg/dl Assessment & Plan 70 yo F presents with acute L hip septic arthritis, now with MSSA bacteremia and zee-sensitive Klebsiella UTI. Subsequently went into afib with RVR on 09/28, which was a new diagnosis for her. Overnight prior to afib seen on EKG she was tachy into the 130s, and was thought to be dry. Given 1L IVF with improvement in HR to 90s. HR went back into 150s around 700am and EKG revealed afib with RVR. She was asymptomatic at the time. Transferred to telemetry and given Diltiazem 10mg IV bolus, then 15mg IV bolus with improvement in HR to the 110s. Required a diltiazem drip with transition to PO diltiazem. Became fluid overloaded and IVF/salt tabs stopped. Began diuresis with Lasix with good result. Previous TTE performed this admission reveals EF 60-65%, no wall motion abnormalities, no ASD and no valvular pathology or vegetation in setting of S aureus bacteremia. Hypoxia persisted and pulm was consulted. Agrees hypoxia most likely 2/2 volume overload and improving and recommends continuing incentive spirometry. 1. Afib-new onset. Coumadin started, cont current dose. Diltiazem increased to 180mg this morning with improved control in heart rate. Cardiology agrees with plan. 2. Hypoxia 2/2 acute fluid overload from acute diastolic heart failure exacerbation-compensated. Weaned off oxygen completely with resolution of her cough and clear lungs on exam. 3. Sepsis 2/2 L hip septic arthritis, MSSA and Klebsiella UTI-resuscitated. Aspiration under fluoroscopy was unsuccessful. Per PM, pt is not a candidate for an injection in setting of acute infection. PO pain meds were adjusted for better relief and are controlling pain. 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 Will have her followup as outpatient for this. Cont daily cefriaxone IV for 6 weeks. Spoke with Ortho--with WBC persistently 20K and persistent pain, would like to reimage her hip now prior to going to rehab tomorrow to ensure effusion didn't get worse. Clinically she appears stable, however. 4. RASHEL-further improvement today off lisinopril, HCTZ and lasix. cont to hold. Apprec Nephro recs. 5. Anemia-chronic, no indication for transfusion at this time. 6. HTN-controlled, lisinopril held in setting of RASHEL and HCTZ held in setting of low Na. 7. Klebsiella YUQ-lid-idiuwyfkc, received several days of abx at this time, changing abx as above. Asymptomatic. 8. Leukocytosis-elevated in setting of infection. Not ill-appearing. Cont to monitor. 9. Hyponatremia-improved off HCTZ. Nephro stopped salt tabs. Trend PRP. 10. Ambulatory dysfunction 2/2 pain-rehab likely tomorrow DVT proph-coumadin Full Code Dispo-to med/surg tonight, likely dc to rehab in am. Amina Gr DO [facility] Hospitalist Consultants: [facility] ORTHO NEPHRO CARDS PULM Current Inpatient Medications: Current Inpatient Medications Medications (Trade) Dose Ordered Sig/Viviane Route Start Time Stop Time Status Last Admin Dose Admin Acetaminophen (Tylenol Tab) 650 mg Q4H PRN PO 09/27/16 00:30 10/27/16 00:29 Lidocaine (Lidoderm Patch 5%) 1 patch QAM TD 09/28/16 09:00 10/28/16 08:59 10/01/16 07:54 1 PATCH Ondansetron HCl (Zofran Inj) 4 mg Q6H PRN IV 09/27/16 00:30 10/27/16 00:29 10/04/16 10:53 4 MG Lorazepam (Ativan Inj) 0.5 mg Q4H PRN IV 09/27/16 00:30 10/27/16 00:29 09/29/16 12:03 0.5 MG Miscellaneous (Remove Lidoderm Patch) 1 ea DAILY@21 N/A 09/27/16 14:00 10/27/16 13:59 10/01/16 20:44 1 EA Gabapentin (Neurontin Cap) 300 mg HS PO 09/27/16 21:00 10/27/16 20:59 10/03/16 19:54 300 MG Multivitamins/ Minerals (Multivitamin W/ Minerals Tab) 1 tab DAILY PO 09/27/16 09:00 10/27/16 08:59 10/04/16 08:30 1 TAB Tramadol HCl (Ultram Tab) pain not relieved by ibupropen/tylenol Q6H PRN PO 09/27/16 00:30 10/27/16 00:29 10/04/16 08:32 50 MG Travoprost (Travatan Z) 1 drops HS OPB 09/27/16 21:00 10/27/16 20:59 10/03/16 19:58 1 DROPS Lorazepam 0.5 mg/ Syringe 1 ml @ 1 mls/min Q4H PRN IV 09/27/16 01:15 10/27/16 01:14 Morphine Sulfate (MoRPHine SULFATE INJ) 4 mg Q4HWA PRN IV 09/27/16 15:45 10/11/16 15:44 10/04/16 10:48 4 MG Famotidine (Pepcid Tab) 20 mg DAILY PRN PO 09/27/16 22:45 10/27/16 22:44 Gabapentin (Neurontin Cap) 300 mg BID@0900,1400 PO 09/29/16 09:00 10/27/16 08:59 10/04/16 14:24 300 MG Nortriptyline HCl (Pamelor Cap) 25 mg HS PO 09/28/16 21:00 10/28/16 20:59 10/03/16 19:52 25 MG Hydromorphone HCl (Dilaudid Tab) 2 mg Q6H PRN PO 09/28/16 15:00 10/12/16 14:59 10/04/16 02:27 2 MG Ipratropium [place] (Atrovent 0.02% 0.5MG/2.5ML Neb) 0.5 mg Q4H PRN INH 09/29/16 22:45 10/29/16 22:44 Levalbuterol (Xopenex 1.25MG/ 0.5ML Neb) 1.25 mg Q4H PRN INH 09/29/16 22:45 10/29/16 22:44 Guaifenesin (Mucinex Contr Rel Tab) 600 mg Q12 PO 09/30/16 09:00 10/30/16 08:59 10/04/16 08:30 600 MG Polyethylene (Miralax Powder Packet) 17 gm Q24H PRN PO 09/30/16 18:15 10/30/16 18:14 10/01/16 17:54 17 GM Bisacodyl (Dulcolax Supp) 10 mg Q24H PRN ME 09/30/16 18:15 10/30/16 18:14 Warfarin Sodium (Coumadin Tab) 5 mg DAILY@16 PO 10/02/16 16:00 11/01/16 15:59 10/03/16 15:55 5 MG Benzonatate (Tessalon Perles Cap) 100 mg Q8H PRN PO 10/02/16 02:00 11/01/16 01:59 10/04/16 14:24 100 MG Heparin Sodium (Porcine) (Heparin 10 Unit/ ml 5 ml Flush) 5 ml PRN PRN FLUSH 10/02/16 23:45 11/01/16 23:44 Diltiazem HCl (Cardizem Cd Cap) 180 mg QAM PO 10/03/16 09:00 11/02/16 08:59 10/04/16 08:30 180 MG Docusate Sodium (coLACE CAP) 100 mg DAILY PRN PO 10/04/16 09:00 10/28/16 08:59 Ceftriaxone Sodium 2000 mg/ Dextrose 70 ml @ 100 mls/hr Q24H IV 10/04/16 16:00 10/18/16 15:59
[2016-10-04] MEDS: WARFARIN SOD 5 MG TAB PO SCH (17:24)
[2016-10-04] MEDS: CEFTRIAXONE SOD INJ 2,000 MG in DEXTROSE 5% 50ML 50 ML IV SCH (17:25)
--- NOTE | 2016-10-04 20:34 | DIAGNOSTIC IMAGING REPORT ---
LEFT HIP-LOWER EXTREMITY WITHOUT CT DOSE: 610.50 mGy.cm HISTORY: CT left hip reimage for worsening effusion after 1 week TECHNIQUE: Multiaxial CT images of the left hip were performed and reformatted in the sagittal and coronal plane without the use of contrast. A dose lowering technique was utilized adhering to the principles of ALARA. COMPARISON: 09/26/2016 FINDINGS: Deformity left hip suggestive of avascular necrosis is again noted. Granulation tissue versus complex soft tissue within a widened acetabular margin is again noted. There is a subacute to pre-existing fracture of the left pubic ring unchanged from the prior study. Mild fragmentation of the acetabulum as well as femoral head is noted and appears to be similar. There has been a mild increase in soft tissue edema lateral to the greater trochanter. There is a slightly progressive soft tissues soft tissue cellulitis-type process within the subcutaneous fat. IMPRESSION: 1. Stable deformity left femoral head suggesting long-standing avascular process. 2. Unchanging complex soft tissue versus granulation tissue within the left hip joint space. 3. Subacute fracture left pubic ring unchanged. 4. Moderate increase in soft tissue edema lateral to the left hip including subcutaneous fat as well as musculature lateral to the greater trochanter. The above report was generated using voice recognition software. It may contain grammatical, syntax or spelling errors. Electronically signed by: Trip Leone M.D. 10/04/2016 8:33 PM Dictated Date/Time: 10/04/2016 8:30 PM
[2016-10-04] MEDS: NORTRIPTYLINE HCL 25 MG CAP PO SCH (21:49)
[2016-10-04] MEDS: TRAVOPROST Z 0.004% OPH SOLN 2.5 ML BTL OPB SCH (22:21)
[2016-10-05 05:33] LABS: HEMATOCRIT 27.3 % (37-47); MEAN CELL VOLUME 89.2 fL (80-100); MEAN CORPUSCULAR HEMOGLOBIN 30.4 pg (25-34); MEAN CORPUSCULAR HGB CONC 34.1 g/dl (32-36); MEAN PLATELET VOLUME 8.4 fL (7.4-10.4); PLATELET COUNT 294 K/uL (130-400); RED BLOOD COUNT 3.06 M/uL (4.2-5.4); WHITE BLOOD COUNT 20.32 K/uL (4.8-10.8)
[2016-10-05 05:39] LABS: INR 2.7 (0.9-1.1); PROTHROMBIN TIME (PATIENT) 30.2 SECONDS (9.0-12.0)
[2016-10-05 05:53] LABS: BUN/CREATININE RATIO 22.7 (10-20); CALCIUM 8.9 mg/dl (8.5-10.1); CREATININE 1.9 mg/dl (0.60-1.20); MAGNESIUM 1.9 mg/dl (1.8-2.4); POTASSIUM 4.8 mmol/L (3.5-5.1)
[2016-10-05 07:05] VITALS: BP 127/76; PULSE 103; TEMP 36.8; O2SAT 93
[2016-10-05] MEDS: CEROVITE ADV FORMULA TAB PO SCH (08:51)
[2016-10-05] MEDS: GUAIFENESIN 600 MG TABCR PO SCH (08:51)
[2016-10-05] MEDS: GABAPENTIN 300 MG CAP PO SCH ×2 (08:51→13:34)
[2016-10-05] MEDS: DILTIAZEM HCL 180 MG CAPCR PO SCH (08:51)
[2016-10-05] MEDS: LIDODERM (LIDOCAINE) PATCH 5% TD SCH (08:52)
[2016-10-05] MEDS: TRAMADOL HCL 50 MG TAB PO PRN ×2 (08:54→16:31)
[2016-10-05] MEDS: BENZONATATE 100MG CAP PO PRN (08:58)
--- NOTE | 2016-10-05 14:14 | CARDIOLOGY PROGRESS NOTE ---
DATE: 10/05/2016 DATE: 10/05/2016 FOLLOW-UP VISIT SUBJECTIVE: The patient is a 70-year-old female who was admitted with septic right hip and staph bacteremia. She is scheduled to go to [facility] today. She has had a PICC line placed. She had paroxysmal atrial fibrillation during her hospital stay which has been slowly converting mostly to sinus rhythm with diltiazem. The patient is also on Coumadin for outpatient anticoagulation. OBJECTIVE: VITAL SIGNS: Blood pressure is 120/70, pulse is regular at 85 beats per minute. GENERAL: She is afebrile. HEAD, EYES, EARS, NOSE, AND THROAT: She is normocephalic. Pupils are equal and reactive to light. Extraocular muscles are intact bilaterally. NECK: The neck veins are flat. Carotids have good upstrokes bilaterally without bruits. Thyroid is nonpalpable. RESPIRATORY: Breath sounds equal bilaterally and clear to auscultation. CARDIOVASCULAR: Heart has a regular rhythm. Normal S1, S2. No S3, S4. No cardiac rubs or murmurs. GASTROINTESTINAL: Abdomen is soft, nontender without organomegaly. EXTREMITIES: Free of edema, digit clubbing, or cyanosis. NEUROLOGIC: Grossly intact. SKIN: Warm to touch. LYMPH NODES: Negative to palpation. LABORATORY DATA: INR is 2.7. WBC count is 20.3, hemoglobin is 9.3. IMPRESSION: 1. Septic arthritis with bacteremia. 2. Paroxysmal atrial fibrillation. RECOMMENDATIONS: I would continue the diltiazem and warfarin post discharge. We will plan followup in 2-3 months after her completion of antibiotics and final plan of care for her hip.
[2016-10-05 15:03] VITALS: BP 123/70; PULSE 103; TEMP 36.7; O2SAT 93
[2016-10-05] MEDS ORDERED: WARFARIN SOD 4 MG TAB PO SCH (16:00)
[2016-10-05] MEDS: CEFTRIAXONE SOD INJ 2,000 MG in DEXTROSE 5% 50ML 50 ML IV SCH (16:27)
[2016-10-05] MEDS ORDERED: CMD4 PO (16:31)
[2016-10-05] MEDS ORDERED: CRDCD180 PO (16:31)
[2016-10-05] MEDS ORDERED: RCPAV2 IV (16:31)
[2016-10-05] MEDS ORDERED: NRT25 PO (16:31)
[2016-10-05] MEDS ORDERED: DLD2 PO (16:50)
--- NOTE | 2016-10-05 16:52 | Discharge Instructions ---
Discharge Instructions Date of Service Oct 05, 2016. Admission Reason for Admission: Sepsis Discharge Discharge Diagnosis / Problem: septic arthritis L hip, afib w RVR, diastolic CHF Discharge Goals Goal(s): Prevent Disease Progression Activity Recommendations Activity Limitations: per Instructions/Follow-up section . Instructions / Follow-Up Instructions / Follow-Up Call your Primary Care doctor if any of the following symptoms or problems start or get worse: * Shortness of breath or difficulty breathing * Wake up at night short of breath * Chest pain * Cough * Swelling of your hands, feet, or legs * More fatigued or tired with your normal activity * Palpitations - sudden fast heart beats WEIGHT * Weigh yourself every morning after using the bathroom. * Use the same scale. * Wear the same amount of clothing. * Write your weight down on a chart. * Call your Primary Care doctor if you gain more than 2-3 pounds in 1-2 days. MEDICATIONS * Use this discharge instruction sheet for medication instructions. * Take your medications at the time your doctor ordered. * Do not skip a dose of your medicines. * If you miss a dose of medicine, take it as soon as possible, but DO NOT DOUBLE A DOSE. * Read your medicine information when you get home. * Know all of the side effects of your medicine. If in doubt, ask your pharmacist * Call your Primary Care doctor's office if you have any side effects. * Be sure all of your doctors know what medicine and herbs you take (including cold, flu, and herbal medicine). Take the following with you to your follow-up doctor appointments: * Weight Chart * Medication List * List of questions Do not drink excessive alcohol, beer or wine. ADDITIONAL PROVIDER INSTRUCTIONS: 1. Please take all medications as prescribed. 2. You will require a daily infusion of CEFTRIAXONE 2GM up to and including 11/02 (total 6 weeks). On this medication you will need weekly blood draws to be taken with results sent to Dr. Hina Fletcher, Infectious Disease specialist with [facility]. These labs include weekly CBC w diff, CMP and ESR. Until you leave [facility], the staff there will be drawing your blood. When you are discharged home, they will provide you with a lab prescription to get this done as an outpatient. You will need to schedule a follow-up with Dr. Fletcher mid October. 3. Once the infection has been cleared and you are off antibiotics, you will need to follow-up with Orthopedics to be re-evaluated for a hip replacement. 4. Once the infection has cleared and you are off antibiotics, you will need a follow-up appointment with [facility] Cardiology for re-evaluation of your atrial fibrillation. 5. Until otherwise instructed by a physician, you will need to continue taking coumadin at the dose above. INR levels will be drawn at [facility] with the next one recommended on Sat, 10/08. Coumadin dosage adjustments will be made accordingly for a goal INR 2-3. After rehab you will be enrolled into a local Anticoagulation Clinic for outpatient management. 6. A follow-up with your primary care physician (PCP) is recommended within one week of discharge from the rehab facility for follow-up from this hospitalization. 7. The comprehensive metabolic panel to be drawn above should also be sent to the Nephrology office of Dr. Skyla Woodward for monitoring of resolution of acute kidney injury. It was a pleasure taking care of you! Call if you have any questions or problems. You can reach a [facility] hospitalist on duty at [facility] 24 hours a day by calling [phone]. Take care of yourself. Amina Gr DO [facility] Hospitalist Current Hospital Diet Patient's current hospital diet: AHA Diet (Heart Healthy) Discharge Diet Recommended Diet: AHA Diet (Heart Healthy) Procedures Procedures Performed: TTE (09/28): Normal LV chamber size and wall thickness. Normal LV systolic function, EF 60-65%. No segmental left ventricular wall motion abnormalities are noted. Grade I diastolic dysfunction. Trace aortic regurgitation. No valvular lesions identified within the scope of this imaging modality. Pending Studies Studies pending at discharge: yes List of pending studies: ALETA panel, Complement panel Medical Emergencies . Who to Call and When: Call 911 or go to the Emergency Room if: * If at any time you feel your situation is an emergency * You have tightness or pain in your chest that does not go away with rest or Nitroglycerin * You are very short of breath even with rest . Non-Emergent Contact Non-Emergency issues call your: Primary Care Provider . . "Provider Documentation" section prepared by Amina Gr. . VTE Core Measure Inpt VTE Proph given/why not?: Warfarin (Coumadin), Other Anticoagulation [place] Drug Monitoring Program Search Results: patient reviewed within database, no issues identified
--- NOTE | 2016-10-05 16:59 | Discharge Summary ---
Discharge Summary Date of Service Oct 05, 2016. Discharge Summary Admission Date: Sep 27, 2016 at 00:00 Discharge Date: Oct 05, 2016 Discharge Disposition: senior living facility Principal Diagnosis: MSSA Bacteremia in setting of L hip septic arthritis s/p dry tap severe L hip OA Klebsiella pneumonia UTI Atrial fibrillation with RVR-new onset RASHEL Anemia HTN Leukocytosis 2/2 inflammation/infection Hyponatremia Ambulatory dysfunction Procedures: L hip joint aspiration under fluoroscopy-dry tap TTE Vaccinations: None. Consultations: ID ORTHO NEPHRO CARDS PULM Pending Studies/Follow-Up: see instructions below. Medication Reconciliation New Medications: Ceftriaxone Sod (Ceftriaxone Sodium) 2 Gm Inj 2 GM IV DAILY for 35 Days, #35 EA 0 Refills Cont with last dose on 11/02/16 Diltiazem HCl (Diltiazem HCl ER) 180 Mg Capcr 180 MG PO QAM for 30 Days, #30 CAP Hydromorphone HCl (Hydromorphone HCl) 2 Mg Tab 2 MG PO Q6H PRN for severe pain for 7 Days, #28 TAB Nortriptyline HCl (Nortriptyline HCl) 25 Mg Cap 25 MG PO HS for 30 Days, #30 CAP Warfarin Sod (Coumadin) 4 Mg Tab 4 MG PO DAILY@16 for 30 Days, #30 TAB Continued Medications: Calcium-Magnesium W/ Vitamin D (Citracal Calcium+D Slow R) 1 Tab Tab 1200 MG PO DAILY Dimenhydrinate (Dramamine) 50 Mg Tab 1 TAB PO PRN UD Famotidine (Pepcid) 20 Mg Tab 20 MG PO DIRECTED PRN for Indigestion, TAB Gabapentin (Neurontin) 300 Mg Cap 300 MG PO HS, CAP Gabapentin (Neurontin) 100 Mg Cap 200 MG PO BID, CAP Multiple Vitamins W/ Minerals (Centrum Silver Adult 50+) 1 Tab Tab 1 TAB PO DAILY Tramadol (Ultram) 50 Mg Tab 50-100 MG PO DAILY PRN for Pain, TAB Travoprost (Travatan Z) 0.004 % Yonathan 1 DROPS OPB HS, #1 BTL 5 Refills Discontinued Medications: Acetaminophen/Codeine (Tylenol W/Codeine #3) 300 Mg/30 Mg Tab 1 TAB PO DIRECTED PRN for Pain, TAB Chlorpheniramine-Dm (Coricidin Hbp Cough & Col) 1 Tab Tab 1 TAB PO DIRECTED PRN for CONGESTION Lisinopril/Hctz (Zestoretic 20MG/25MG) Tab 1 TAB PO DAILY, TAB Naproxen (Aleve) 220 Mg Tab 220 MG PO Q12 PRN for Pain or Fever, TAB Admission Information HPI (per Admitting provider): HISTORY OF PRESENT ILLNESS: History obtained from patient and records. Medical history significant for hypertension, past tobacco abuse, chronic back pain, on narcotics, chronic hyponatremia, chronic anemia (baseline hemoglobin 11). Patient has had chronic back pain/chronic sciatica for years. Not interested in surgery. Patient moved to [place] a few years ago. July 2016, she had L5-S1 transforaminal epidural steroid injection by [facility] resulting in 80% relief of radicular left pain. On followup of pain management last month. Tramadol p.r.n. prescribed outpatient and epidural steroid injection as indicated. Recommendation for surgical referral w/c patient declined as per records. Last night, the patient had worsening of achy low back pain on the left, going to the left lateral thigh. Some chills. No chest pain, no shortness of breath. At the Emergency Room, the patient received vancomycin and ceftriaxone for septic arthritis. Physical Exam (per Admitting): PHYSICAL EXAMINATION: VITAL SIGNS: Blood pressure was noted to be 120/81, pulse rate 100, RR 18, temperature 37.6, sats 95 on room air. GENERAL: Noted to be comfortable, no respiratory distress. SKIN: Pallor. HEENT: Pale palpebral conjunctivae. Dry mucosa. Chronic lip asymmetry. NECK: No JVD. Supple. CHEST: Decreased breath sounds. HEART: Regular rate and rhythm. ABDOMEN: Soft. EXTREMITIES: tender left hip. Pain with motion. NEUROLOGIC: No gross focality. Hospital Course 70 yo F presents with acute L hip septic arthritis, now with MSSA bacteremia and zee-sensitive Klebsiella UTI. Subsequently went into afib with RVR on 09/28, which was a new diagnosis for her. Overnight prior to afib seen on EKG she was tachy into the 130s, and was thought to be dry. Given 1L IVF with improvement in HR to 90s. HR went back into 150s around 700am and EKG revealed afib with RVR. She was asymptomatic at the time. Transferred to telemetry and given Diltiazem 10mg IV bolus, then 15mg IV bolus with improvement in HR to the 110s. Required a diltiazem drip with transition to PO diltiazem. Became fluid overloaded and IVF/salt tabs stopped. Began diuresis with Lasix with good result. Previous TTE performed this admission reveals EF 60-65%, no wall motion abnormalities, no ASD and no valvular pathology or vegetation in setting of S aureus bacteremia. Hypoxia persisted and pulm was consulted. Agrees hypoxia most likely 2/2 volume overload and improving and recommends continuing incentive spirometry. 1. Afib-new onset. Coumadin started, cont current dose. Diltiazem increased to 180mg this morning with improved control in heart rate. Cardiology agrees with plan. 2. Hypoxia 2/2 acute fluid overload from acute diastolic heart failure exacerbation-compensated. Weaned off oxygen completely with resolution of her cough and clear lungs on exam. 3. Sepsis 2/2 L hip septic arthritis, MSSA and Klebsiella UTI-resuscitated. Aspiration under fluoroscopy was unsuccessful. Per PM, pt is not a candidate for an injection in setting of acute infection. PO pain meds were adjusted for better relief and are controlling pain. 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 Will have her followup as outpatient for this. Cont daily cefriaxone IV for 6 weeks. Spoke with Ortho--with WBC persistently 20K and persistent pain, would like to reimage her hip now prior to going to rehab tomorrow to ensure effusion didn't get worse. Clinically she appears stable, however. CT reviewed with no changes. Again will consider hip replacement after infection completely treated. 4. RASHEL-further improvement today off lisinopril, HCTZ and lasix. cont to hold on discharge with new diltiazem added. Will need to be titrated as outpatient. Improved creatinine function at time of discharge. 5. Anemia-chronic, no indication for transfusion at this time. 6. HTN-controlled, lisinopril held in setting of RASHEL and HCTZ held in setting of low Na. 7. Klebsiella [id number], received several days of abx at this time, changing abx as above. Asymptomatic. 8. Leukocytosis-elevated in setting of infection. Not ill-appearing. Cont to monitor. 9. Hyponatremia-improved off HCTZ. Nephro stopped salt tabs. Trend PRP. 10. Ambulatory dysfunction 2/2 pain-rehab likely tomorrow At time of discharge she was afebrile and hemodynamically stable. Her hip pain was controlled on oral medications and she was mentating and breathing at baseline. Physical exam was unchanged. She was discharged in stable condition to SNF for rehab in order to get strong enough to go home. Total time spent on discharge = 60 minutes This includes examination of the patient, discharge planning, medication reconciliation, and communication with other providers[place] [address] Discharge Heart Failure (CHF) Patient Name: Keena Cool Unit Number: [id number] Date of : 1945 Patient Status: Admitted Inpatient Attending Doctor: Amina Gr DO DI: CHF v4 Discharge Instructions Date of Service Oct 05, 2016. Admission Reason for Admission: Sepsis Discharge Discharge Diagnosis / Problem: septic arthritis L hip, afib w RVR, diastolic CHF Discharge Goals Goal(s): Prevent Disease Progression Activity Recommendations Activity Limitations: per Instructions/Follow-up section . Instructions / Follow-Up Instructions / Follow-Up Call your Primary Care doctor if any of the following symptoms or problems start or get worse: * Shortness of breath or difficulty breathing * Wake up at night short of breath * Chest pain * Cough * Swelling of your hands, feet, or legs * More fatigued or tired with your normal activity * Palpitations - sudden fast heart beats WEIGHT * Weigh yourself every morning after using the bathroom. * Use the same scale. * Wear the same amount of clothing. * Write your weight down on a chart. * Call your Primary Care doctor if you gain more than 2-3 pounds in 1-2 days. MEDICATIONS * Use this discharge instruction sheet for medication instructions. * Take your medications at the time your doctor ordered. * Do not skip a dose of your medicines. * If you miss a dose of medicine, take it as soon as possible, but DO NOT DOUBLE A DOSE. * Read your medicine information when you get home. * Know all of the side effects of your medicine. If in doubt, ask your pharmacist * Call your Primary Care doctor's office if you have any side effects. * Be sure all of your doctors know what medicine and herbs you take (including cold, flu, and herbal medicine). Take the following with you to your follow-up doctor appointments: * Weight Chart * Medication List * List of questions Do not drink excessive alcohol, beer or wine. ADDITIONAL PROVIDER INSTRUCTIONS: 1. Please take all medications as prescribed. 2. You will require a daily infusion of CEFTRIAXONE 2GM up to and including 11/02 (total 6 weeks). On this medication you will need weekly blood draws to be taken with results sent to Dr. Hina Fletcher, Infectious Disease specialist with [facility]. These labs include weekly CBC w diff, CMP and ESR. Until you leave [facility], the staff there will be drawing your blood. When you are discharged home, they will provide you with a lab prescription to get this done as an outpatient. You will need to schedule a follow-up with Dr. Fletcher mid October. 3. Once the infection has been cleared and you are off antibiotics, you will need to follow-up with Orthopedics to be re-evaluated for a hip replacement. 4. Once the infection has cleared and you are off antibiotics, you will need a follow-up appointment with [facility] for re-evaluation of your atrial fibrillation. 5. Until otherwise instructed by a physician, you will need to continue taking coumadin at the dose above. INR levels will be drawn at [facility] with the next one recommended on 10/08. Coumadin dosage adjustments will be made accordingly for a goal INR 2-3. After rehab you will be enrolled into a local Anticoagulation Clinic for outpatient management. 6. A follow-up with your primary care physician (PCP) is recommended within one week of discharge from the rehab facility for follow-up from this hospitalization. 7. The comprehensive metabolic panel to be drawn above should also be sent to the Nephrology office of Dr. Skyla Woodward for monitoring of resolution of acute kidney injury. It was a pleasure taking care of you! Call if you have any questions or problems. You can reach a [facility] hospitalist on duty at [facility] 24 hours a day by calling [phone]. Take care of yourself. Amina Gr DO [facility] Hospitalist Current Hospital Diet Patient's current hospital diet: AHA Diet (Heart Healthy) Discharge Diet Recommended Diet: AHA Diet (Heart Healthy) Procedures Procedures Performed: TTE (09/28): Normal LV chamber size and wall thickness. Normal LV systolic function, EF 60-65%. No segmental left ventricular wall motion abnormalities are noted. Grade I diastolic dysfunction. Trace aortic regurgitation. No valvular lesions identified within the scope of this imaging modality. Pending Studies Studies pending at discharge: yes List of pending studies: ALETA panel, Complement panel Medical Emergencies . Who to Call and When: Call 911 or go to the Emergency Room if: * If at any time you feel your situation is an emergency * You have tightness or pain in your chest that does not go away with rest or Nitroglycerin * You are very short of breath even with rest . Non-Emergent Contact Non-Emergency issues call your: Primary Care Provider . . "Provider Documentation" section prepared by Amina Gr. . VTE Core Measure Inpt VTE Proph given/why not?: Warfarin (Coumadin), Other Anticoagulation [place] Drug Monitoring Program Search Results: patient reviewed within database, no issues identified Additional Copies To Michael Harrison DO; Skyla Woodward DO; Jennifer. Chance, D.Sarah; Jeremiah Alvarado M.D.; Zaki Koch M.D.; Upendra. White M.D.
[2016-10-05 17:48] VITALS: BP 123/70; PULSE 103; TEMP 36.7; O2SAT 93
[2016-10-18] MEDS ORDERED: CETI10TA84 PO (13:19)
[2016-10-18] MEDS ORDERED: FRRS300 PO (13:19)
[2016-11-26] MEDS ORDERED: TRAM-10 PO (21:43)
[2016-11-26] MEDS ORDERED: HYDR2TAB48 PO (21:43)
[2016-11-28] MEDS ORDERED: DAPTOMYCIN IV ×2 (09:46→09:48)
== END 2016-10-05 17:45 | DRG 871 ==
LOC: EDBD 20:07 → C.EDC 20:10 → C.MS2W 09-27 → ENRESERV 09-27 00:50 → C.2E 09-29 08:17 → ENRESERV 10-04 16:57 → C.MSN 10-04 20:21
PROVIDERS: ADMIT Internal Medicine; ATTEND Hospitalist
DX: A41.01 Sepsis due to Methicillin susceptible Staphylococcus aureus (principal); I50.31 Acute diastolic (congestive) heart failure; M00.9 Pyogenic arthritis, unspecified; E87.1 Hypo-osmolality and hyponatremia; N39.0 Urinary tract infection, site not specified; M87.352 Other secondary osteonecrosis, left femur; N17.9 Acute kidney failure, unspecified; I11.0 Hypertensive heart disease with heart failure; F17.200 Nicotine dependence, unspecified, uncomplicated; D64.9 Anemia, unspecified; E87.6 Hypokalemia; M16.12 Unilateral primary osteoarthritis, left hip; I48.91 Unspecified atrial fibrillation; B96.1 Klebsiella pneumoniae [K. pneumoniae] as the cause of diseases classified elsewhere; R09.02 Hypoxemia; E87.70 Fluid overload, unspecified; M41.9 Scoliosis, unspecified; M47.896 Other spondylosis, lumbar region; M54.16 Radiculopathy, lumbar region; T39.395A Adverse effect of other nonsteroidal anti-inflammatory drugs [NSAID], initial encounter

== ENCOUNTER 2016-10-12 15:36 | Inpatient (IN) | payer OTHER ==
[~2016-10-12] VITALS: Ht 160 cm; Wt 69.5 kg
[~2016-10-12 15:36] MED LIST changes: +CMD4 PO; -CORICIDIN PO; +CRDCD180 PO; +DLD2 PO; +FAMO20TA11 PO; -LISI-788 PO; -MULT-506 PO; +MULT-845 PO; -NAPR1TAB9 PO; +NRT25 PO; +RCPAV2 IV; +TRAV0.00 OPB
[2016-10-12] MEDS ORDERED: PIPERACILLIN/TAZOBACTAM 4.5 GM/100ML D5W IV STA (15:52)
[2016-10-12] MEDS ORDERED: SODIUM CHLORIDE 0.9% 1000ML 500 ML IV ONE (15:52)
[2016-10-12] MEDS ORDERED: WARF4TAB8 PO (16:08)
[2016-10-12] MEDS ORDERED: WARF2TAB8 PO (16:08)
[2016-10-12] MEDS ORDERED: BISA10SU3 PR (16:13)
[2016-10-12] MEDS ORDERED: ACET325T96 PO (16:13)
[2016-10-12] MEDS ORDERED: SODIENE PR (16:13)
--- NOTE | 2016-10-12 16:13 | EMERGENCY ROOM VISIT NOTE ---
History Report prepared by Joseph: Alison Alberto Under the Supervision of: Dr. Rivera Cook M.D. First contact with patient: 15:43 Chief Complaint: TACHYCARDIA Stated Complaint: TACH CARDIA / [facility] History of Present Illness The patient is a 70 year old female who presents to the Emergency Room with complaints of persistent tachycardia starting just prior to arrival. The patient states she has had shortness of breath, fever and swelling in her left leg. She denies any chest pain or history of PE or DVTs. The patient was in the ED for left hip pain September 27. During that visit, she was diagnosed with klebsiella in her urine and staph in her blood. She was admitted for Sepsis and discharged October 05. The patient was discharged to [facility] for rehab and continued Ceftriaxone injections. The patient was also found in atrial fibrillation during her last visit and is now on Coumadin. Per nursing notes, she was found to have a low grade fever today--concerns for ongoing infection were raised. The patient states she was told that her lab values have worsened since her hospital discharge. Source of History: patient Onset: just prior to arrival Timing: other (persistent) Associated Symptoms: + fevers, + SOB, No chest pain Note: The patient notes swelling in her left leg. Review of Systems ROS: Please see HPI. At least 10 systems in total were reviewed and otherwise negative. Past Medical & Surgical Medical Problems: (1) Chronic low back pain (2) Hypertension (3) Sepsis (4) Staphylococcus aureus septicemia Family History No pertinent family history no pertinent family history stated Social History Smoking Status: Never Smoker Marital Status: single Occupation Status: retired Current/Historical Medications Scheduled Calcium-Magnesium W/ Vitamin D (Citracal Calcium+D Slow R), 1,200 MG PO DAILY Ceftriaxone Sod (Ceftriaxone Sodium), 2 GM IV DAILY Diltiazem HCl (Diltiazem HCl ER), 180 MG PO QAM Gabapentin (Neurontin), 300 MG PO HS Gabapentin (Neurontin), 200 MG PO BID Multiple Vitamins W/ Minerals (Centrum Silver Adult 50+), 1 TAB PO DAILY Nortriptyline HCl (Nortriptyline HCl), 25 MG PO HS Travoprost (Travatan Z), 1 DROPS OPB HS Warfarin Sod (Jantoven), 2 MG PO DIRECTED Warfarin Sod (Jantoven), 4 MG PO DIRECTED Scheduled PRN Acetaminophen Tab (Tylenol), 650 MG PO Q4 PRN for Fever Bisacodyl (Dulcolax), 1 SUPP AK DAILY PRN for Constipation Famotidine (Pepcid), 20 MG PO DIRECTED PRN for Indigestion Hydromorphone HCl (Hydromorphone HCl), 2 MG PO Q6H PRN for severe pain Sodium Phosphate/Biphosphate (Fleet Enema), 1 EA AK DAILY PRN for Constipation Tramadol (Ultram), 50-100 MG PO DAILY PRN for Pain Allergies Coded Allergies: Latex1 -Allergic Contact Dermititis (Verified Allergy, Severe, RESPIRATORY DISTRESS, 10/12/16) Brimonidine (Verified Allergy, Intermediate, OTHER-SEE COMMENT, 10/12/16) Toxic conjunctivitis Nickel (Verified Allergy, Unknown, RASH, 10/12/16) Oxycodone (Verified Allergy, Unknown, GI SYMPTOMS, 10/12/16) PT STATES "CAN TAKE TYENOL W/CODIENE WITH OUT ANY DIFFICULTY". Diphenhydramine (Verified Adverse Reaction, Severe, DELIRIUM, 10/12/16) as per patient opposite effect Physical Exam Vital Signs Date Time Temp Pulse Resp B/P (MAP) Pulse Ox O2 Delivery O2 Flow Rate FiO2 10/12/16 19:08 36.6 10/12/16 18:43 156/98 10/12/16 17:36 113 16 93 10/12/16 17:30 156/90 10/12/16 17:10 109 20 154/87 92 Room Air 10/12/16 17:06 108 16 96 10/12/16 17:00 154/87 10/12/16 16:36 104 13 96 10/12/16 16:33 155/91 10/12/16 16:06 102 16 96 10/12/16 16:00 150/85 10/12/16 15:54 96 Room Air 10/12/16 15:50 106 10/12/16 15:39 37.0 106 16 155/86 99 Room Air 10/12/16 15:37 155/86 Physical Exam GENERAL: Patient is in no acute distress. HEENT: No acute trauma, normocephalic atraumatic, mucous membranes dry, no nasal congestion, no scleral icterus. NECK: No stridor, no adenopathy, no meningismus, trachea is midline. LUNGS: Equal breath sounds, crackles at bases more on right, no wheezing. HEART: Tachycardic with regular rhythm, no murmurs ABDOMEN: Soft, nontender, bowel sounds positive, no hernias, no peritonitis. RECTAL: Brown stool heme negative EXTREMITIES: No cyanosis, full range of motion of all the joints without pain or difficulty, no signs for acute trauma. Edema noted to left lower extremity, no cellulitis NEUROLOGIC: Oriented x 3, no acute motor or sensory deficits, no focal weakness. SKIN: No rash, no jaundice, no diaphoresis. Medical Decision & Procedures ER Provider Diagnostic Interpretation: Radiology results as stated below per my review and radiologist interpretation: CHEST ONE VIEW PORTABLE FINDINGS: Right upper extremity PICC terminates in the superior vena cava. Atherosclerosis of the aortic arch. Cardiac silhouette normal. Elevation of the right hemidiaphragm, unchanged. Minimal bandlike opacity at the lingula is new from prior. No large effusion or pneumothorax. Degenerative changes of the glenohumeral joints. Scoliosis and degenerative change of the spine. Upper abdomen normal. IMPRESSION: 1. Minimal opacity in the lingula, possibly atelectasis. Electronically signed by: Zaki Rubio M.D. LEFT VENOUS DOPP LOWER EXT UNILAT FINDINGS: Left: Common femoral vein: Patent. Femoral vein: Patent. Greater saphenous vein: Patent. Popliteal vein: Patent. Calf veins: Patent. Other: None. IMPRESSION: No evidence of deep venous thrombosis. Electronically signed by: Zaki Rubio M.D. Laboratory Results 10/12/16 16:00 Red Blood Count 2.76, Mean Corpuscular Volume 89.9, Mean Corpuscular Hemoglobin 30.1, Mean Corpuscular Hemoglobin Concent 33.5, Mean Platelet Volume 8.2, Neutrophils (%) (Auto) 70.9, Lymphocytes (%) (Auto) 14.7, Monocytes (%) (Auto) 9.1, Eosinophils (%) (Auto) 4.0, Basophils (%) (Auto) 1.0, Neutrophils # (Auto) 6.40, Lymphocytes # (Auto) 1.33, Monocytes # (Auto) 0.82, Eosinophils # (Auto) 0.36, Basophils # (Auto) 0.09 10/12/16 16:00 Test 10/12/16 16:00 8/18/17 16:12 10/12/16 16:50 White Blood Count 9.03 K/uL (4.8-10.8) Red Blood Count 2.76 M/uL (4.2-5.4) Hemoglobin 8.3 g/dL (12.0-16.0) Hematocrit 24.8 % (37-47) Mean Corpuscular Volume 89.9 fL (80-100) Mean Corpuscular Hemoglobin 30.1 pg (25-34) Mean Corpuscular Hemoglobin Concent 33.5 g/dl (32-36) Platelet Count 375 K/uL (130-400) Mean Platelet Volume 8.2 fL (7.4-10.4) Neutrophils (%) (Auto) 70.9 % Lymphocytes (%) (Auto) 14.7 % Monocytes (%) (Auto) 9.1 % Eosinophils (%) (Auto) 4.0 % Basophils (%) (Auto) 1.0 % Neutrophils # (Auto) 6.40 K/uL (1.4-6.5) Lymphocytes # (Auto) 1.33 K/uL (1.2-3.4) Monocytes # (Auto) 0.82 K/uL (0.11-0.59) Eosinophils # (Auto) 0.36 K/uL (0-0.5) Basophils # (Auto) 0.09 K/uL (0-0.2) RDW Standard Deviation 47.7 fL (36.4-46.3) RDW Coefficient of Variation 14.5 % (11.5-14.5) Immature Granulocyte % (Auto) 0.3 % Immature Granulocyte # (Auto) 0.03 K/uL (0.00-0.02) Spherocytes 1+ Erythrocyte Sedimentation Rate 61 mm/hr (0-21) Prothrombin Time 30.9 SECONDS (9.0-12.0) Prothromb Time International Ratio 2.8 (0.9-1.1) Activated Partial Thromboplast Time 56.3 SECONDS (21.0-31.0) Partial Thromboplastin Ratio 2.2 Anion Gap 7.0 mmol/L (3-11) Est Creatinine Clear Calc Drug Dose 36.9 ml/min Estimated GFR () 44.3 Estimated GFR (Non- 38.2 BUN/Creatinine Ratio 13.5 (10-20) Calcium Level 8.9 mg/dl (8.5-10.1) Magnesium Level 1.5 mg/dl (1.8-2.4) Total Bilirubin 0.3 mg/dl (0.2-1) Aspartate Amino Transf (AST/SGOT) 16 U/L (15-37) Alanine Aminotransferase (ALT/SGPT) 14 U/L (12-78) Alkaline Phosphatase 77 U/L (45-117) Troponin I < 0.015 ng/ml (0-0.045) C-Reactive Protein 15.80 mg/dl (0-0.29) Total Protein 7.1 gm/dl (6.4-8.2) Albumin 2.1 gm/dl (3.4-5.0) Globulin 5.0 gm/dl (2.5-4.0) Albumin/Globulin Ratio 0.4 (0.9-2) Thyroid Stimulating Hormone (TSH) 3.720 uIu/ml (0.300-4.500) Free Thyroxine 1.58 ng/dl (0.80-1.60) Bedside Lactic Acid Venous 0.40 mmol/L (0.90-1.70) Urine Color YELLOW Urine Appearance CLEAR (CLEAR) Urine pH 7.0 (4.5-7.5) Urine Specific [place] 1.009 (1.000-1.030) Urine Protein NEG (NEG) Urine Glucose (UA) NEG (NEG) Urine Ketones NEG (NEG) Urine Occult Blood NEG (NEG) Urine Nitrite NEG (NEG) Urine Bilirubin NEG (NEG) Urine Urobilinogen NEG (NEG) Urine Leukocyte Esterase NEG (NEG) Urine WBC (Auto) 1-5 /hpf (0-5) Urine RBC (Auto) 0-4 /hpf (0-4) Urine Hyaline Casts (Auto) 0 /lpf (0-5) Urine Epithelial Cells (Auto) 0-5 /lpf (0-5) Urine Bacteria (Auto) NEG (NEG) Laboratory results reviewed by me. Medications Administered Medications (Trade) Dose Ordered Sig/Viviane Route Start Time Stop Time Status Last Admin Dose Admin Sodium Chloride 500 ml @ 999 mls/hr Q31M ONCE IV 10/12/16 15:52 10/12/16 16:22 DC 10/12/16 17:09 999 MLS/HR Piperacillin Sod/ Tazobactam Sod (Zosyn Iv) 4.5 gm ONE STAT IV 10/12/16 15:52 10/12/16 15:58 DC 10/12/16 17:09 4.5 GM Magnesium Sulfate (Magnesium Sulfate) 2 gm NOW STAT IV 10/12/16 17:19 10/12/16 17:21 DC 10/12/16 18:50 2 GM Tramadol HCl (Ultram Tab) 50 mg NOW STAT PO 10/12/16 18:46 10/12/16 18:47 DC 10/12/16 18:50 50 MG Lorazepam (Ativan Inj) 0.5 mg NOW STAT IV 10/12/16 19:06 10/12/16 19:07 DC 10/12/16 19:14 0.5 MG ECG Indication: tachycardia Rate (beats per minute): 107 Rhythm: sinus tachycardia Findings: PAC, no acute ischemic change ED Course 1544: The patient was evaluated in room B4B. A complete history and physical exam was performed. 1552: Zosyn Iv 4.5 gm IV, Sodium Chloride 500 ml @ 999 mls/hr IV. 1719: Magnesium Sulfate 2 gm IV. 1823: I checked on the patient, she is resting comfortably. 1825: I discussed the patient's case with Hina Duckworth. 1846: Ultram Tab 50 mg PO 1906: Lorazepam 0.5 mg IV. 1920: Upon reexamination the patient is resting comfortably. I discussed results and treatment plan with the patient. She verbalizes agreement and understanding. The patient will be evaluated for further management. Medical Decision Differential diagnosis includes but is not limited to sepsis or bacteremia, pneumonia, UTI, renal failure, dehydration, DVT or PE, failed outpatient treatment. There is no leukocytosis. The patient is anemic though and this is a drop for her looking back at previous testing. Rectal exam today was heme negative. There is a hyponatremia and hypomagnesemia. Creatinine slightly elevated consistent with some dehydration/renal insufficiency. No hepatitis. The patient appears to be in a euthyroid state. Lactic acid level is not elevated making severe sepsis less likely. Chest film does not show any pneumonia or CHF. Urinalysis does not show infection. Blood cultures are pending. Sedimentation rate and C-reactive protein are both elevated. INR is therapeutic for someone taking Coumadin. EKG shows a sinus tachycardia with PACs. Cardiac enzyme testing 1 is not consistent with acute cardiac injury. Left leg ultrasound does not show DVT. Patient received IV saline, IV Zosyn. She received oral tramadol for pain, IV Ativan for anxiety. She was given IV magnesium for the low magnesium value. The patient presents with tachycardia, possible low-grade fever, increasing weakness and fatigue and shortness of breath. She has laboratory findings that explain why she feels poorly. Ongoing infection is a concern. I do think admission/observation is warranted. Further testing is required. I spoke to the patient and case management. The on-call hospitalist was consulted. Medication Reconcilliation Current Medication List: was personally reviewed by me Blood Pressure Screening Patient's blood pressure: Elevated blood pressure Blood pressure disposition: Elevated BP felt to be situational Consults Time Called: 1819 Consulting Physician: Hina Duckworth Returned Call: [id number] Discussed the patient's case. The patient will be evaluated for further management. Impression Primary Impression: Tachycardia Additional Impressions: Anemia Dehydration Hypomagnesemia Hyponatremia Scribe Attestation The scribe's documentation has been prepared under my direction and personally reviewed by me in its entirety. I confirm that the note above accurately reflects all work, treatment, procedures, and medical decision making performed by me. Departure Information Dispostion Being Evaluated By Hospitalist Referrals Jeremiah Alvarado M.D. (PCP) Patient Instructions [facility] Problem Qualifiers
[2016-10-12 16:24] LABS: BASO ABS # 0.09 K/uL (0-0.2); HEMATOCRIT 24.8 % (37-47); IG% 0.3 %; LYMPH % 14.7 %; LYMPH ABS # 1.33 K/uL (1.2-3.4); MEAN CELL VOLUME 89.9 fL (80-100); MEAN CORPUSCULAR HEMOGLOBIN 30.1 pg (25-34); MEAN CORPUSCULAR HGB CONC 33.5 g/dl (32-36); MEAN PLATELET VOLUME 8.2 fL (7.4-10.4); MONO % 9.1 %; NEUT % 70.9 %; PLATELET COUNT 375 K/uL (130-400); RED BLOOD COUNT 2.76 M/uL (4.2-5.4); WHITE BLOOD COUNT 9.03 K/uL (4.8-10.8)
--- NOTE | 2016-10-12 16:27 | DIAGNOSTIC IMAGING REPORT ---
CHEST ONE VIEW PORTABLE CLINICAL HISTORY: 70 years-old Female presenting with Sepsis. TECHNIQUE: Portable upright AP view of the chest was obtained. COMPARISON: 10/02/2016. FINDINGS: Right upper extremity PICC terminates in the superior vena cava. Atherosclerosis of the aortic arch. Cardiac silhouette normal. Elevation of the right hemidiaphragm, unchanged. Minimal bandlike opacity at the lingula is new from prior. No large effusion or pneumothorax. Degenerative changes of the glenohumeral joints. Scoliosis and degenerative change of the spine. Upper abdomen normal. IMPRESSION: 1. Minimal opacity in the lingula, possibly atelectasis. Electronically signed by: Zaki Rubio M.D. 10/12/2016 4:25 PM Dictated Date/Time: 10/12/2016 4:15 PM
[2016-10-12 16:45] LABS: INR 2.8 (0.9-1.1); PARTIAL THROMBOPLASTIN RATIO 2.2; PROTHROMBIN TIME (PATIENT) 30.9 SECONDS (9.0-12.0)
[2016-10-12 17:00] LABS: ALT/SGPT 14 U/L (12-78); AST/SGOT 16 U/L (15-37); BLOOD UREA NITROGEN 19 mg/dl (7-18); BUN/CREATININE RATIO 13.5 (10-20); CALCIUM 8.9 mg/dl (8.5-10.1); CARBON DIOXIDE 28 mmol/L (21-32); CHLORIDE 93 mmol/L (98-107); GLUCOSE 90 mg/dl (70-99); MAGNESIUM 1.5 mg/dl (1.8-2.4); POTASSIUM 4.2 mmol/L (3.5-5.1); SODIUM 128 mmol/L (136-145)
[2016-10-12 17:07] LABS: URINE APPEARANCE CLEAR (CLEAR); URINE BILIRUBIN NEG (NEG); URINE COLOR YELLOW; URINE EPITHELIAL CELL AUTO 0-5 /lpf (0-5); URINE NITRITE NEG (NEG); URINE SPECIFIC GRAVITY 1.009 (1.000-1.030); UROBILINOGEN NEG (NEG); ZZURINE CULT IF INDIC CATH NO
[2016-10-12 17:08] LABS: MANUAL MICROSCOPIC REQUIRED? NO; REVIEW REQ? NO
[2016-10-12 17:11] LABS: ALB/GLOB RATIO 0.4 (0.9-2); ALKALINE PHOSPHATASE 77 U/L (45-117)
[2016-10-12 17:12] LABS: COMPLETE YES; SPHEROCYTE 1+
[2016-10-12] MEDS ORDERED: MAGNESIUM SULFATE 1GM / D5W 1 GM BAG IV STA (17:19)
--- NOTE | 2016-10-12 18:17 | DIAGNOSTIC IMAGING REPORT ---
LEFT VENOUS DOPP LOWER EXT UNILAT CLINICAL HISTORY: 70 years-old Female presenting with swelling. TECHNIQUE: Real-time grayscale and color and spectral Doppler ultrasound imaging of the veins of the left lower extremity was performed. Compression and augmentation were also utilized. COMPARISON: None. FINDINGS: Left: Common femoral vein: Patent. Femoral vein: Patent. Greater saphenous vein: Patent. Popliteal vein: Patent. Calf veins: Patent. Other: None. IMPRESSION: No evidence of deep venous thrombosis. Electronically signed by: Zaki Rubio M.D. 10/12/2016 6:16 PM Dictated Date/Time: 10/12/2016 6:14 PM
[2016-10-12] MEDS ORDERED: TRAMADOL HCL 50 MG TAB PO STA (18:46)
[2016-10-12] MEDS ORDERED: LORAZEPAM 2 MG/ML 1 ML VIAL IV STA (19:06)
[2016-10-12] MEDS ORDERED: CHLOTAB10 PO (20:17)
[2016-10-12] MEDS ORDERED: HYDROmorphone INJ 0.5 MG/0.5 ML SYR IV PRN (21:15)
[2016-10-12] MEDS ORDERED: ONDANSETRON INJ 2 MG/ML 2 ML VIAL IV PRN ×2 (21:15)
[2016-10-12] MEDS ORDERED: NITROGLYCERIN 0.4 MG SL PER TAB CHARGE SL PRN (21:15)
[2016-10-12 21:21] LABS: HEMATOCRIT 25.2 % (37-47)
[2016-10-12 21:40] VITALS: BP 137/74; PULSE 110; TEMP 36.9; O2SAT 95; Ht 160 cm; Wt 69.5 kg
--- NOTE | 2016-10-12 22:14 | History and Physical ---
History & Physical Date & Time of Service: Oct 12, 2016 at 20:12 Chief Complaint: Tach Cardia / [place] Primary Care Physician: Jeremiah Alvarado M.D. History of Present Illness Source: patient, hospital records This is a 70 year old female with PMH listed below who presents to the ED from [facility] for left hip pain. Patient was recently admitted to [facility] from September 27-2016 for MSSA bacteremia in setting of left hip septic arthritis s/ p dry tap, zee-sensitive Klebsiella UTI, new onset Afib with RVR for which she was placed on diltiazem and Coumadin, hypoxia due to diastolic heart failure exacerbation, RASHEL. Echo during hospitalization showed no vegetation. She was discharged on 6 week course of ceftriaxone via PICC line. Has AVN left hip. Injection or JOSEFA could not be done until infection clears. Patient now presents due to worsening left hip pain. She was able to bear weight (with pain) before, but today could not tolerate bearing weight on the hip at all due to severe pain. No radiation of pain, numbness, or weakness. Has swelling of LLE. Pt reports low grade fevers (Tmax 100 per patient) and chills for past week. Has been dizzy at times. Reports intermittent nausea and poor intake of food. On 1500 cc fluid restriction. Has chronic dry cough and postnasal drip attributed to allergies. She denies chest pain, SOB, abdominal pain, vomiting, diarrhea, UTI symptoms, GI bleeding or any other bleeding. Past Medical/Surgical History Medical Problems: (1) Anemia Status: Chronic (2) Atrial fibrillation Status: Chronic (3) AVN (avascular necrosis of bone) Status: Chronic (4) Chronic low back pain Status: Chronic (5) CKD (chronic kidney disease), stage III Status: Chronic (6) Dyslipidemia Status: Chronic (7) H/o septic arthritis left hip Status: Chronic (8) Hypertension Status: Chronic (9) Hyponatremia Status: Chronic (10) Lumbar disc disease Status: Chronic (11) Osteoarthritis Status: Chronic Surgical Problems: (1) S/P epidural steroid injection Status: Chronic (2) S/P inguinal hernia repair Status: Chronic Family History FH: esophageal cancer FATHER Social History Smoking Status: Former Smoker (quit 5 yeras ago) Alcohol Use: occasionally Drug Use: none Marital Status: single Housing status: fpc ([facility] ) Occupational Status: retired Allergies Coded Allergies: Latex1 -Allergic Contact Dermititis (Verified Allergy, Severe, RESPIRATORY DISTRESS, 10/12/16) Brimonidine (Verified Allergy, Intermediate, OTHER-SEE COMMENT, 10/12/16) Toxic conjunctivitis Nickel (Verified Allergy, Unknown, RASH, 10/12/16) Oxycodone (Verified Allergy, Unknown, GI SYMPTOMS, 10/12/16) PT STATES "CAN TAKE TYENOL W/CODIENE WITH OUT ANY DIFFICULTY". Diphenhydramine (Verified Adverse Reaction, Severe, DELIRIUM, 10/12/16) as per patient opposite effect Home Medications Scheduled Calcium-Magnesium W/ Vitamin D (Citracal Calcium+D Slow R), 1,200 MG PO DAILY Ceftriaxone Sod (Ceftriaxone Sodium), 2 GM IV DAILY Diltiazem HCl (Diltiazem HCl ER), 180 MG PO QAM Gabapentin (Neurontin), 300 MG PO HS Gabapentin (Neurontin), 200 MG PO BID Multiple Vitamins W/ Minerals (Centrum Silver Adult 50+), 1 TAB PO DAILY Nortriptyline HCl (Nortriptyline HCl), 25 MG PO HS Travoprost (Travatan Z), 1 DROPS OPB HS Warfarin Sod (Jantoven), 2 MG PO DIRECTED Warfarin Sod (Jantoven), 4 MG PO DIRECTED Scheduled PRN Acetaminophen Tab (Tylenol), 650 MG PO Q4 PRN for Fever Bisacodyl (Dulcolax), 1 SUPP CA DAILY PRN for Constipation Chlorpheniramine-Dm (Coricidin Hbp Cough & Col), 1 TAB PO Q6H PRN for Nasal Congestion Famotidine (Pepcid), 20 MG PO DIRECTED PRN for Indigestion Hydromorphone HCl (Hydromorphone HCl), 2 MG PO Q6H PRN for severe pain Sodium Phosphate/Biphosphate (Fleet Enema), 1 EA CA DAILY PRN for Constipation Tramadol (Ultram), 50 MG PO Q6 PRN for Pain Review of Systems Ten systems reviewed and negative except as noted in HPI. Physical Exam Vital Signs Date Time Temp Pulse Resp B/P (MAP) Pulse Ox O2 Delivery O2 Flow Rate FiO2 10/12/16 19:08 36.6 10/12/16 18:43 156/98 10/12/16 17:36 113 16 93 10/12/16 17:30 156/90 10/12/16 17:10 109 20 154/87 92 Room Air 10/12/16 17:06 108 16 96 10/12/16 17:00 154/87 10/12/16 16:36 104 13 96 10/12/16 16:33 155/91 10/12/16 16:06 102 16 96 10/12/16 16:00 150/85 10/12/16 15:54 96 Room Air 10/12/16 15:50 106 10/12/16 15:39 37.0 106 16 155/86 99 Room Air 10/12/16 15:37 155/86 General Appearance: WD/WN, no apparent distress, + pertinent finding (daughter at bedside) Head: normocephalic, atraumatic Eyes: normal inspection, sclerae normal ENT: hearing grossly normal, pharynx normal Neck: supple, trachea midline Respiratory/Chest: lungs clear, normal breath sounds, no respiratory distress, no accessory muscle use Cardiovascular: no murmur, + tachycardia (rate 110's, regular rhythm, appears to be sinus on monitor) Abdomen/GI: normal bowel sounds, non tender, soft Extremities/Musculoskelatal: no calf tenderness, + pedal edema (LLE 2+ pretibial and pedal edema. RLE no edema. ), + pertinent finding (left hip tender to palpation laterally and painful on ROM. left knee and ankle nontender without pain on ROM. ) Neurologic/Psych: alert, oriented x 3, + pertinent finding (anxious) Skin: normal color, warm/dry Diagnostics Laboratory Results Results Past 24 Hours Test 10/12/16 16:00 10/12/16 16:12 10/12/16 16:50 Range/Units White Blood Count 9.03 4.8-10.8 K/uL Red Blood Count 2.76 4.2-5.4 M/uL Hemoglobin 8.3 12.0-16.0 g/dL Hematocrit 24.8 37-47 % Mean Corpuscular Volume 89.9 80-100 fL Mean Corpuscular Hemoglobin 30.1 25-34 pg Mean Corpuscular Hemoglobin Concent 33.5 32-36 g/dl Platelet Count 375 130-400 K/uL Mean Platelet Volume 8.2 7.4-10.4 fL Neutrophils (%) (Auto) 70.9 % Lymphocytes (%) (Auto) 14.7 % Monocytes (%) (Auto) 9.1 % Eosinophils (%) (Auto) 4.0 % Basophils (%) (Auto) 1.0 % Neutrophils # (Auto) 6.40 1.4-6.5 K/uL Lymphocytes # (Auto) 1.33 1.2-3.4 K/uL Monocytes # (Auto) 0.82 0.11-0.59 K/uL Eosinophils # (Auto) 0.36 0-0.5 K/uL Basophils # (Auto) 0.09 0-0.2 K/uL RDW Standard Deviation 47.7 36.4-46.3 fL RDW Coefficient of Variation 14.5 11.5-14.5 % Immature Granulocyte % (Auto) 0.3 % Immature Granulocyte # (Auto) 0.03 0.00-0.02 K/uL Spherocytes 1+ Erythrocyte Sedimentation Rate 61 0-21 mm/hr Prothrombin Time 30.9 9.0-12.0 SECONDS Prothromb Time International Ratio 2.8 0.9-1.1 Activated Partial Thromboplast Time 56.3 21.0-31.0 SECONDS Partial Thromboplastin Ratio 2.2 Sodium Level 128 136-145 mmol/L Potassium Level 4.2 3.5-5.1 mmol/L Chloride Level 93 98-107 mmol/L Carbon Dioxide Level 28 21-32 mmol/L Anion Gap 7.0 3-11 mmol/L Blood Urea Nitrogen 19 7-18 mg/dl Creatinine 1.40 0.60-1.20 mg/dl Est Creatinine Clear Calc Drug Dose 36.9 ml/min Estimated GFR () 44.3 Estimated GFR (Non- 38.2 BUN/Creatinine Ratio 13.5 10-20 Random Glucose 90 70-99 mg/dl Calcium Level 8.9 8.5-10.1 mg/dl Magnesium Level 1.5 1.8-2.4 mg/dl Total Bilirubin 0.3 0.2-1 mg/dl Aspartate Amino Transf (AST/SGOT) 16 15-37 U/L Alanine Aminotransferase (ALT/SGPT) 14 12-78 U/L Alkaline Phosphatase 77 45-117 U/L Troponin I < 0.015 0-0.045 ng/ml C-Reactive Protein 15.80 0-0.29 mg/dl Total Protein 7.1 6.4-8.2 gm/dl Albumin 2.1 3.4-5.0 gm/dl Globulin 5.0 2.5-4.0 gm/dl Albumin/Globulin Ratio 0.4 0.9-2 Thyroid Stimulating Hormone (TSH) 3.720 0.300-4.500 uIu/ml Free Thyroxine 1.58 0.80-1.60 ng/dl Bedside Lactic Acid Venous 0.40 0.90-1.70 mmol/L Urine Color YELLOW Urine Appearance CLEAR CLEAR Urine pH 7.0 4.5-7.5 Urine Specific [place] 1.009 1.000-1.030 Urine Protein NEG NEG Urine Glucose (UA) NEG NEG Urine Ketones NEG NEG Urine Occult Blood NEG NEG Urine Nitrite NEG NEG Urine Bilirubin NEG NEG Urine Urobilinogen NEG NEG Urine Leukocyte Esterase NEG NEG Urine WBC (Auto) 1-5 0-5 /hpf Urine RBC (Auto) 0-4 0-4 /hpf Urine Hyaline Casts (Auto) 0 0-5 /lpf Urine Epithelial Cells (Auto) 0-5 0-5 /lpf Urine Bacteria (Auto) NEG NEG Microbiology Results 10/12/16 Blood Culture, Received Pending 10/12/16 Blood Culture, Received Pending Diagnostic Radiology CHEST ONE VIEW PORTABLE IMPRESSION: 1. Minimal opacity in the lingula, possibly atelectasis. LEFT VENOUS DOPP LOWER EXT UNILAT IMPRESSION: No evidence of deep venous thrombosis. EKG sinus tachycardia with PACs, rate 107, when compared to prior EKG the R wave progression is later in the precordial leads, as confirmed by cardiology read Impression Assessment and Plan ANEMIA Acute on chronic, symptomatic Hg is 8.3; was 9's-11's on recent admission Rectal exam heme negative per ER provider Transfuse 1 unit pRBC Monitor H/H LEFT HIP PAIN Recent septic arthritis L hip s/p dry tap, on ceftriaxone; AVN left hip Now with worsening pain Check CT hip PRN IV Dilaudid Continue IV ceftriaxone RECENT MSSA BACTEREMIA In setting of left hip septic arthritis; echo negative for vegetation on recent admission On IV ceftriaxone Noted to be tachycardic in ER, but does not meet sepsis criteria (afebrile, no tachypnea, no leukocytosis, lactic acid WNL) Repeat blood cultures drawn and dose of Zosyn given in ER Continue IV ceftriaxone HYPONATREMIA Acute on chronic Na is 128 Received 500 mL NSS in ER Monitor sodium level HISTORY OF ATRIAL FIBRILLATION Currently in sinus tach, rate 100'-110's, possibly from anemia and dehydration Continue diltiazem INR therapeutic; Coumadin held due to anemia HYPOMAGNESEMIA Replace and monitor CKD STAGE III Had RASHEL on recent admission- creat up to 2's, baseline ~1.0, was 1.9 on discharge- has trended down to 1.4 today Monitor renal function Avoid nephrotoxins DVT PROPHYLAXIS Coumadin held due to anemia SCD's DISPOSITION Presents from [facility] Discharge planning eval requested Patient seen in collaboration with Dr. Will. Please see his addendum. Assessment/Plan IM ATTENDING : Patient seen and examined. History obtained from patient and records. Preceding documentation by Ms. Hina Quinones PA-C, reviewed. FINAL ASSESSMENT AND PLAN as follows: 1. Shortness of breath, possibly from symptomatic anemia rule out hemarthrosis, left hip given increased left hip pain complaints following discharge from the hospital. Of note, hemoccult in the ER was negative, 2. acute on chronic hyponatremia, ARF, mild clinical dehydration 3. hx PAF. On Coumadin Currently sinus tachycardia secondary to anemia/ discomfort INR therapeutic 4. septic arthritis, left hip, MSSA, ongoing IV ceftriaxone course to complete 6 weeks 5. past tobacco abuse. PCU transfuse pRBC for symptomatic anemia CT left hip, rule out hemarthrosis. Careful correction of sodium with NSS. May need Nephrology assistance if problems encountered. Further management pending workup results. DVT prophylaxis, Coumadin INR 2-3 if hemoglobin stable and no concern of bleeding on the left hip. FULL CODE.
[2016-10-12] MEDS ORDERED: SODIUM CHLORIDE 0.9% 1000ML 1,000 ML IV ONE (22:15)
--- NOTE | 2016-10-12 22:42 | DIAGNOSTIC IMAGING REPORT ---
CT SCAN OF THE LEFT HIP WITHOUT IV CONTRAST CLINICAL HISTORY: Left leg pain. COMPARISON STUDY: CT scan of the left dated 10/04/2016. Pelvic CT dated 09/26/2016 TECHNIQUE: CT scan of the left hip is performed from the left bony pelvis to the midshaft of the left femur. Images are reviewed in the axial, sagittal, and coronal planes. IV contrast was not administered for this examination. A dose lowering technique was utilized adhering to the principles of ALARA. CT DOSE: 682.21 mGy.cm FINDINGS: The skeletal structures are osteopenic. No acute fracture is identified. Subacute/nonunited left pubic ring fractures are similar to previous. Advanced degenerative change and deformity in the left hip is unchanged from 10/04/2016. There is near complete loss of the joint space with bony sclerosis and subchondral cyst formation. A component of avascular necrosis is not excluded. A left hip joint is unchanged from previous, and bursal fluid around the left hip as well as granulation tissue are similar to previous. Soft tissue edema in the left lateral thigh is unchanged. No organized fluid collection is seen. The partially imaged pelvic viscera is grossly unremarkable noting calcified uterine fibroids. Postoperative change is seen in the inguinal region. There is advanced diverticulosis of the left colon. There is no left inguinal lymphadenopathy. Atherosclerotic calcification is seen in the left femoral artery. IMPRESSION: 1. No significant change from the 10/04/2016 examination. 2. No acute fracture is seen. Subacute/nonunited left pubic ring fractures are similar to previous. 3. Advanced degenerative change/deformity of the left femoral head is similar to prior studies with near complete loss of the joint space. 4. Joint effusion and bursal fluid around the left hip is unchanged from 10/04/2016. Electronically signed by: Rivera Díaz M.D. 10/12/2016 10:41 PM Dictated Date/Time: 10/12/2016 9:44 PM
[2016-10-12] MEDS: CEFTRIAXONE SOD INJ 2000 MG in DEXTROSE 5% 50ML IV SCH (22:54)
[2016-10-12 23:51] VITALS: BP_SYST 139; BP_SYST 148; BP_DIAS 75; BP_DIAS 78; PULSE 107; TEMP 37; TEMP 37.1; O2SAT 94; O2SAT 95
[2016-10-13] VITALS (13 sets, daily range): BP systolic 123–147; BP diastolic 64–81; PULSE 92–109; TEMP 36.7–37.3; O2SAT 91–99
[2016-10-13] MEDS: HYDROmorphone HCL 2 MG TAB PO PRN ×3 (04:01→19:30)
[2016-10-13 05:24] LABS: BASO % 1.2 %; EOS % 4.6 %; HEMATOCRIT 24.5 % (37-47); IG% 0.5 %; LYMPH % 15.1 %; LYMPH ABS # 1.25 K/uL (1.2-3.4); MEAN CELL VOLUME 88.8 fL (80-100); MEAN CORPUSCULAR HEMOGLOBIN 29.7 pg (25-34); MEAN CORPUSCULAR HGB CONC 33.5 g/dl (32-36); MEAN PLATELET VOLUME 8.3 fL (7.4-10.4); MONO % 10.8 %; NEUT % 67.8 %; PLATELET COUNT 327 K/uL (130-400); RED BLOOD COUNT 2.76 M/uL (4.2-5.4); WHITE BLOOD COUNT 8.27 K/uL (4.8-10.8)
[2016-10-13 05:41] LABS: INR 2.5 (0.9-1.1); PROTHROMBIN TIME (PATIENT) 27.6 SECONDS (9.0-12.0)
[2016-10-13 05:48] LABS: COMPLETE YES
[2016-10-13 06:02] LABS: BUN/CREATININE RATIO 11.8 (10-20); CALCIUM 8.3 mg/dl (8.5-10.1); CREATININE 1.3 mg/dl (0.60-1.20); MAGNESIUM 1.7 mg/dl (1.8-2.4); POTASSIUM 4.2 mmol/L (3.5-5.1)
[2016-10-13] MEDS ORDERED: MAGNESIUM SULFATE 1GM / D5W 1 GM in PREMIXED IN D5W 100 ML IV ONE (06:45)
[2016-10-13] MEDS: CEROVITE ADV FORMULA TAB PO SCH (07:43)
[2016-10-13] MEDS: GABAPENTIN 100 MG CAP PO SCH ×2 (07:44→13:14)
[2016-10-13] MEDS: DILTIAZEM HCL 180 MG CAPCR PO SCH (07:44)
[2016-10-13] MEDS: TRAMADOL HCL 50 MG TAB PO PRN ×2 (08:30→22:47)
[2016-10-13] MEDS ORDERED: ROCEPHIN: CONSULT PHARMACY PRN (09:00)
[2016-10-13] MEDS ORDERED: LORAZEPAM 0.5 MG TAB PO ONE (12:15)
--- NOTE | 2016-10-13 12:17 | HISTORY & PHYSICAL EXAMINATION ---
DATE OF ADMISSION: 10/12/2016 IM ATTENDING : Patient seen and examined. History obtained from patient and records. Preceding documentation by Ms. Hina Quinones PA-C, reviewed. FINAL ASSESSMENT AND PLAN as follows: 1. Shortness of breath, possibly from symptomatic anemia rule out hemarthrosis, left hip given increased left hip pain complaints following discharge from the hospital. Of note, hemoccult in the ER was negative, 2. acute on chronic hyponatremia, ARF, mild clinical dehydration 3. hx PAF. On Coumadin Currently sinus tachycardia secondary to anemia/ discomfort INR therapeutic 4. septic arthritis, left hip, MSSA, ongoing IV ceftriaxone course to complete 6 weeks 5. past tobacco abuse. PCU transfuse pRBC for symptomatic anemia CT left hip, rule out hemarthrosis. Careful correction of sodium with NSS. May need Nephrology assistance if problems encountered. Further management pending workup results. DVT prophylaxis, Coumadin INR 2-3 if hemoglobin stable and no concern of bleeding on the left hip. FULL CODE. MTDD
--- NOTE | 2016-10-13 13:50 | Progress Note ---
Medicine Progress Note Date & Time of Visit: Oct 13, 2016 at 13:00. Subjective Pt was seen and examined Lying in bed with no distress Pt said that she continue to have pain in her left hip after discharging from the hospital last week. She said that her pain is worst when putting pressing in her left leg by walking and standing she said that right now her pain is only a 2 out 10 because she just lies down in her bed Denies any chest pain, palpitation, dizziness and SOB Objective Last 8 Hrs Date Time Temp Pulse Resp B/P (MAP) Pulse Ox O2 Delivery O2 Flow Rate FiO2 10/13/16 12:00 Nasal Cannula 10/13/16 10:20 37.2 106 16 128/79 96 10/13/16 09:20 36.9 104 18 130/79 99 10/13/16 08:50 36.8 92 18 144/80 92 10/13/16 08:00 Nasal Cannula 10/13/16 07:38 36.8 109 18 146/79 (101) 96 Physical Exam: General- No acute distress Head- atraumatic Eyes- PERRL, EOMI ENT- oropharynx clear Neck- supple, no JVD Lungs- clear to auscultation Heart- +tachycardia, no murmur Abdomen- normal bowel sounds, soft Extremities- no calf tenderness, +LLE edema Neuro- alert, oriented x 3; PERRL, EOMI; no facial palsy Skin- warm & dry Laboratory Results: Last 24 Hours Test 10/12/16 16:00 10/12/16 16:12 10/12/16 16:50 10/12/16 21:04 White Blood Count 9.03 K/uL Red Blood Count 2.76 M/uL Hemoglobin 8.3 g/dL 8.5 g/dL Hematocrit 24.8 % 25.2 % Mean Corpuscular Volume 89.9 fL Mean Corpuscular Hemoglobin 30.1 pg Mean Corpuscular Hemoglobin Concent 33.5 g/dl Platelet Count 375 K/uL Mean Platelet Volume 8.2 fL Neutrophils (%) (Auto) 70.9 % Lymphocytes (%) (Auto) 14.7 % Monocytes (%) (Auto) 9.1 % Eosinophils (%) (Auto) 4.0 % Basophils (%) (Auto) 1.0 % Neutrophils # (Auto) 6.40 K/uL Lymphocytes # (Auto) 1.33 K/uL Monocytes # (Auto) 0.82 K/uL Eosinophils # (Auto) 0.36 K/uL Basophils # (Auto) 0.09 K/uL RDW Standard Deviation 47.7 fL RDW Coefficient of Variation 14.5 % Immature Granulocyte % (Auto) 0.3 % Immature Granulocyte # (Auto) 0.03 K/uL Spherocytes 1+ Erythrocyte Sedimentation Rate 61 mm/hr Prothrombin Time 30.9 SECONDS Prothromb Time International Ratio 2.8 Activated Partial Thromboplast Time 56.3 SECONDS Partial Thromboplastin Ratio 2.2 Sodium Level 128 mmol/L 128 mmol/L Potassium Level 4.2 mmol/L Chloride Level 93 mmol/L Carbon Dioxide Level 28 mmol/L Anion Gap 7.0 mmol/L Blood Urea Nitrogen 19 mg/dl Creatinine 1.40 mg/dl Est Creatinine Clear Calc Drug Dose 36.9 ml/min Estimated GFR () 44.3 Estimated GFR (Non- 38.2 BUN/Creatinine Ratio 13.5 Random Glucose 90 mg/dl Calcium Level 8.9 mg/dl Magnesium Level 1.5 mg/dl Total Bilirubin 0.3 mg/dl Aspartate Amino Transf (AST/SGOT) 16 U/L Alanine Aminotransferase (ALT/SGPT) 14 U/L Alkaline Phosphatase 77 U/L Troponin I < 0.015 ng/ml C-Reactive Protein 15.80 mg/dl Total Protein 7.1 gm/dl Albumin 2.1 gm/dl Globulin 5.0 gm/dl Albumin/Globulin Ratio 0.4 Thyroid Stimulating Hormone (TSH) 3.720 uIu/ml Free Thyroxine 1.58 ng/dl Bedside Lactic Acid Venous 0.40 mmol/L Urine Color YELLOW Urine Appearance CLEAR Urine pH 7.0 Urine Specific [place] 1.009 Urine Protein NEG Urine Glucose (UA) NEG Urine Ketones NEG Urine Occult Blood NEG Urine Nitrite NEG Urine Bilirubin NEG Urine Urobilinogen NEG Urine Leukocyte Esterase NEG Urine WBC (Auto) 1-5 /hpf Urine RBC (Auto) 0-4 /hpf Urine Hyaline Casts (Auto) 0 /lpf Urine Epithelial Cells (Auto) 0-5 /lpf Urine Bacteria (Auto) NEG Test 10/13/16 05:05 White Blood Count 8.27 K/uL Red Blood Count 2.76 M/uL Hemoglobin 8.2 g/dL Hematocrit 24.5 % Mean Corpuscular Volume 88.8 fL Mean Corpuscular Hemoglobin 29.7 pg Mean Corpuscular Hemoglobin Concent 33.5 g/dl Platelet Count 327 K/uL Mean Platelet Volume 8.3 fL Neutrophils (%) (Auto) 67.8 % Lymphocytes (%) (Auto) 15.1 % Monocytes (%) (Auto) 10.8 % Eosinophils (%) (Auto) 4.6 % Basophils (%) (Auto) 1.2 % Neutrophils # (Auto) 5.61 K/uL Lymphocytes # (Auto) 1.25 K/uL Monocytes # (Auto) 0.89 K/uL Eosinophils # (Auto) 0.38 K/uL Basophils # (Auto) 0.10 K/uL RDW Standard Deviation 47.5 fL RDW Coefficient of Variation 14.6 % Immature Granulocyte % (Auto) 0.5 % Immature Granulocyte # (Auto) 0.04 K/uL Red Blood Cell Morphology Unremarkable Prothrombin Time 27.6 SECONDS Prothromb Time International Ratio 2.5 Sodium Level 129 mmol/L Potassium Level 4.2 mmol/L Chloride Level 95 mmol/L Carbon Dioxide Level 27 mmol/L Anion Gap 7.0 mmol/L Blood Urea Nitrogen 15 mg/dl Creatinine 1.30 mg/dl Est Creatinine Clear Calc Drug Dose 38.1 ml/min Estimated GFR () 48.5 Estimated GFR (Non- 41.8 BUN/Creatinine Ratio 11.8 Random Glucose 74 mg/dl Calcium Level 8.3 mg/dl Magnesium Level 1.7 mg/dl Date/Time Source Procedure Growth Status 10/12/16 16:32 Blood Blood Culture Pending Received 10/12/16 16:00 Blood Blood Culture Pending Received 10/12/16 22:00 Nasal MRSA DNA Surveillance Screen - Final Specimen Negative for MRSA by DNA Probe Complete Assessment & Plan ANEMIA Hgb 8.2 today Hbg was btw 9 to 11 on recent admission Rectal exam heme negative per ER provider S/P 2 units PRBC given Coumadin on hold Monitor H/H LEFT HIP PAIN Recent septic arthritis L hip s/p dry tap, on ceftriaxone; AVN left hip CT of hip showed advanced degenerative change/deformity of the left femoral head is similar to prior studies with near complete loss of the joint space. Joint effusion and bursal fluid around the left hip is unchanged from Continue PRN IV Dilaudid PT/OT and advised pt to use a walker to ambulate to relieve the pressure on the left hip RECENT MSSA BACTEREMIA In setting of left hip septic arthritis; echo negative for vegetation on recent admission Continue IV ceftriaxone to complete 6 weeks course afebrile and no leukocytosis Stable HYPONATREMIA Na is 129 Monitor sodium level Nephrology consulted HISTORY OF ATRIAL FIBRILLATION Currently in sinus tachycardia Coumadin on hold due to anemia Continue diltiazem INR therapeutic 2.5 HYPOMAGNESEMIA Replace and monitor CKD STAGE III Had RASHEL on recent admission- creat up to 2's, baseline ~1.0, was 1.9 on discharge Creatine on admission 1.4 Creatine today 1.3 Monitor renal function Avoid nephrotoxins DVT PROPHYLAXIS Coumadin held due to anemia SCD's CODE STATUS FULL CODE Consultants: Nephrology Current Inpatient Medications: Current Inpatient Medications Medications (Trade) Dose Ordered Sig/Viviane Route Start Time Stop Time Status Last Admin Dose Admin Acetaminophen (Tylenol Tab) 650 mg Q4H PRN PO 10/12/16 21:15 11/11/16 21:14 Nitroglycerin (Nitrostat Tab) 0.4 mg UD PRN SL 10/12/16 21:15 11/11/16 21:14 Hydromorphone HCl (Dilaudid Inj) 0.5 mg Q6H PRN IV 10/12/16 21:15 10/26/16 21:14 Ondansetron HCl (Zofran Inj) 4 mg Q6H PRN IV 10/12/16 21:15 11/11/16 21:14 10/13/16 04:06 4 MG Tramadol HCl (Ultram Tab) not relieved by tylenol @ Q6H PRN PO 10/12/16 21:15 11/11/16 21:14 10/13/16 08:30 50 MG Diltiazem HCl (Cardizem Cd Cap) 180 mg QAM PO 10/13/16 09:00 11/12/16 08:59 10/13/16 07:44 180 MG Gabapentin (Neurontin Cap) 200 mg BID@0900,1400 PO 10/13/16 09:00 11/12/16 08:59 10/13/16 07:44 200 MG Gabapentin (Neurontin Cap) 300 mg HS PO 10/13/16 21:00 11/12/16 20:59 Hydromorphone HCl (Dilaudid Tab) 2 mg Q6H PRN PO 10/12/16 21:15 10/26/16 21:14 10/13/16 04:01 2 MG Multivitamins/ Minerals (Multivitamin W/ Minerals Tab) 1 tab DAILY PO 10/13/16 09:00 11/12/16 08:59 10/13/16 07:43 1 TAB Nortriptyline HCl (Pamelor Cap) 25 mg HS PO 10/13/16 21:00 11/12/16 20:59 Travoprost (Travatan Z) 1 drops HS OPB 10/13/16 21:00 11/12/16 20:59 Miscellaneous Information (Pharmacy Consult) 1 ea UD PRN N/A 10/13/16 09:00 11/12/16 08:59 Sodium Chloride 1,000 ml @ 60 mls/hr [id number] ONCE IV 10/12/16 22:15 10/13/16 14:54 10/12/16 22:53 60 MLS/HR Ceftriaxone Sodium 2000 mg/ Dextrose 70 ml @ 140 mls/hr DAILY@2300 IV 10/12/16 23:00 11/23/16 22:59 10/12/16 22:54 140 MLS/HR Heparin Sodium (Porcine) (Heparin 10 Unit/ ml 5 ml Flush) 5 ml PRN PRN FLUSH 10/13/16 02:00 11/12/16 01:59
[2016-10-13 20:13] LABS: BUN/CREATININE RATIO 13.7 (10-20); CALCIUM 8.8 mg/dl (8.5-10.1); CREATININE 1.4 mg/dl (0.60-1.20)
[2016-10-13] MEDS: TRAVOPROST Z 0.004% OPH SOLN 2.5 ML BTL OPB SCH (21:06)
[2016-10-13] MEDS: NORTRIPTYLINE HCL 25 MG CAP PO SCH (21:07)
[2016-10-13] MEDS: GABAPENTIN 300 MG CAP PO SCH (21:07)
[2016-10-13] MEDS: CEFTRIAXONE SOD INJ 2000 MG in DEXTROSE 5% 50ML IV SCH (23:30)
[2016-10-14] VITALS (7 sets, daily range): BP systolic 100–143; BP diastolic 66–81; PULSE 56–105; TEMP 36.6–36.9; O2SAT 91–99
[2016-10-14 05:04] LABS: BASO ABS # 0.08 K/uL (0-0.2); COMPLETE YES; EOS % 4.4 %; HEMATOCRIT 27.7 % (37-47); IG% 0.4 %; LYMPH % 21.5 %; LYMPH ABS # 1.81 K/uL (1.2-3.4); MEAN CELL VOLUME 88.5 fL (80-100); MEAN CORPUSCULAR HEMOGLOBIN 29.7 pg (25-34); MEAN CORPUSCULAR HGB CONC 33.6 g/dl (32-36); MEAN PLATELET VOLUME 8.1 fL (7.4-10.4); MONO % 8.3 %; NEUT % 64.4 %; PLATELET COUNT 313 K/uL (130-400); RED BLOOD COUNT 3.13 M/uL (4.2-5.4); WHITE BLOOD COUNT 8.41 K/uL (4.8-10.8)
[2016-10-14 05:12] LABS: INR 1.8 (0.9-1.1); PROTHROMBIN TIME (PATIENT) 19.8 SECONDS (9.0-12.0)
[2016-10-14 05:29] LABS: BUN/CREATININE RATIO 12.9 (10-20); CALCIUM 8.9 mg/dl (8.5-10.1); CREATININE 1.3 mg/dl (0.60-1.20); MAGNESIUM 1.7 mg/dl (1.8-2.4)
[2016-10-14] MEDS: TRAMADOL HCL 50 MG TAB PO PRN ×2 (06:33→23:02)
[2016-10-14] MEDS: CEROVITE ADV FORMULA TAB PO SCH (08:19)
[2016-10-14] MEDS: GABAPENTIN 100 MG CAP PO SCH ×2 (08:20→14:16)
[2016-10-14] MEDS: ACETAMINOPHEN 325 MG TAB PO PRN (08:20)
[2016-10-14] MEDS: DILTIAZEM HCL 180 MG CAPCR PO SCH (08:20)
[2016-10-14] MEDS: DOCUSATE SODIUM/SENNA 50/8.6MG TAB PO PRN (08:22)
[2016-10-14] MEDS ORDERED: MAGNESIUM SULFATE 1GM / D5W 1 GM in PREMIXED IN D5W 100 ML IV ONE (08:45)
--- NOTE | 2016-10-14 12:17 | Progress Note ---
Medicine Progress Note Date & Time of Visit: Oct 14, 2016 at 12:11. Subjective Pt was seen and examined Sitting in bed with no distress Pt said that she continue to have pain in her Left hip on/off tramadol helps with the pain Her last BM was on Saturday denies any chest pain, palpitation, dizziness and SOB Objective Last 8 Hrs Date Time Temp Pulse Resp B/P (MAP) Pulse Ox O2 Delivery O2 Flow Rate FiO2 10/14/16 11:20 36.7 90 16 135/81 (99) 91 Room Air 10/14/16 08:20 Room Air 10/14/16 07:10 36.9 101 18 143/81 (101) 96 Room Air 10/14/16 04:28 36.6 56 14 100/66 (77) 99 Room Air Physical Exam: General- No acute distress Head- atraumatic Eyes- PERRL, EOMI ENT- oropharynx clear Neck- supple, no JVD Lungs- clear to auscultation Heart- +tachycardia, no murmur Abdomen- normal bowel sounds, soft Extremities- no calf tenderness, +LE edema L>R Neuro- alert, oriented x 3; PERRL, EOMI; no facial palsy Skin- warm & dry Laboratory Results: Last 24 Hours Test 10/13/16 16:58 10/13/16 19:15 10/14/16 04:50 Sodium Level 127 mmol/L 130 mmol/L Potassium Level 4.0 mmol/L 4.0 mmol/L Chloride Level 93 mmol/L 95 mmol/L Carbon Dioxide Level 28 mmol/L 28 mmol/L Anion Gap 6.0 mmol/L 7.0 mmol/L Blood Urea Nitrogen 19 mg/dl 17 mg/dl Creatinine 1.40 mg/dl 1.30 mg/dl Est Creatinine Clear Calc Drug Dose 35.4 ml/min 38.1 ml/min Estimated GFR () 44.3 48.5 Estimated GFR (Non- 38.2 41.8 BUN/Creatinine Ratio 13.7 12.9 Random Glucose 90 mg/dl 90 mg/dl Osmolality 270 mOsm/kg Calcium Level 8.8 mg/dl 8.9 mg/dl Urine Osmolality 238 mOms/kg Urine Random Sodium 41 mEq/L White Blood Count 8.41 K/uL Red Blood Count 3.13 M/uL Hemoglobin 9.3 g/dL Hematocrit 27.7 % Mean Corpuscular Volume 88.5 fL Mean Corpuscular Hemoglobin 29.7 pg Mean Corpuscular Hemoglobin Concent 33.6 g/dl Platelet Count 313 K/uL Mean Platelet Volume 8.1 fL Neutrophils (%) (Auto) 64.4 % Lymphocytes (%) (Auto) 21.5 % Monocytes (%) (Auto) 8.3 % Eosinophils (%) (Auto) 4.4 % Basophils (%) (Auto) 1.0 % Neutrophils # (Auto) 5.42 K/uL Lymphocytes # (Auto) 1.81 K/uL Monocytes # (Auto) 0.70 K/uL Eosinophils # (Auto) 0.37 K/uL Basophils # (Auto) 0.08 K/uL RDW Standard Deviation 50.1 fL RDW Coefficient of Variation 15.4 % Immature Granulocyte % (Auto) 0.4 % Immature Granulocyte # (Auto) 0.03 K/uL Prothrombin Time 19.8 SECONDS Prothromb Time International Ratio 1.8 Magnesium Level 1.7 mg/dl Assessment & Plan ANEMIA Hgb 9.3 today Hbg was btw 9 to 11 on recent admission Rectal exam heme negative per ER provider S/P 2 units PRBC do far Coumadin on hold Continue Monitor CBC Will resume coumadin if H/H stable tomorrow LEFT HIP PAIN Recent septic arthritis L hip s/p dry tap, on ceftriaxone; AVN left hip CT of hip showed advanced degenerative change/deformity of the left femoral head is similar to prior studies with near complete loss of the joint space. Joint effusion and bursal fluid around the left hip is unchanged from Continue pain control PT/OT and advised pt to use a walker to ambulate to relieve the pressure on the left hip RECENT MSSA BACTEREMIA In setting of left hip septic arthritis; echo negative for vegetation on recent admission Continue IV ceftriaxone to complete 6 weeks course afebrile and no leukocytosis Stable HYPONATREMIA Na is 130 Monitor sodium level Nephrology consulted HISTORY OF ATRIAL FIBRILLATION Currently in sinus tachycardia Coumadin on hold due to anemia Continue diltiazem INR 1.8 today HYPOMAGNESEMIA MG replaced and monitor CKD STAGE III Had RASHEL on recent admission- creat up to 2's, baseline ~1.0, was 1.9 on discharge Creatine on admission 1.4 Creatine today 1.3 Monitor renal function Avoid nephrotoxins DVT PROPHYLAXIS Coumadin held due to anemia SCD's CODE STATUS FULL CODE Consultants: Nephrology Current Inpatient Medications: Current Inpatient Medications Medications (Trade) Dose Ordered Sig/Viviane Route Start Time Stop Time Status Last Admin Dose Admin Acetaminophen (Tylenol Tab) 650 mg Q4H PRN PO 10/12/16 21:15 11/11/16 21:14 10/14/16 08:20 650 MG Nitroglycerin (Nitrostat Tab) 0.4 mg UD PRN SL 10/12/16 21:15 11/11/16 21:14 Hydromorphone HCl (Dilaudid Inj) 0.5 mg Q6H PRN IV 10/12/16 21:15 10/26/16 21:14 Ondansetron HCl (Zofran Inj) 4 mg Q6H PRN IV 10/12/16 21:15 11/11/16 21:14 10/13/16 04:06 4 MG Tramadol HCl (Ultram Tab) not relieved by tylenol @ Q6H PRN PO 10/12/16 21:15 11/11/16 21:14 10/14/16 06:33 50 MG Diltiazem HCl (Cardizem Cd Cap) 180 mg QAM PO 10/13/16 09:00 11/12/16 08:59 10/14/16 08:20 180 MG Gabapentin (Neurontin Cap) 200 mg BID@0900,1400 PO 10/13/16 09:00 11/12/16 08:59 10/14/16 08:20 200 MG Gabapentin (Neurontin Cap) 300 mg HS PO 10/13/16 21:00 11/12/16 20:59 10/13/16 21:07 300 MG Hydromorphone HCl (Dilaudid Tab) 2 mg Q6H PRN PO 10/12/16 21:15 10/26/16 21:14 10/13/16 19:30 2 MG Multivitamins/ Minerals (Multivitamin W/ Minerals Tab) 1 tab DAILY PO 10/13/16 09:00 11/12/16 08:59 10/14/16 08:19 1 TAB Nortriptyline HCl (Pamelor Cap) 25 mg HS PO 10/13/16 21:00 11/12/16 20:59 10/13/16 21:07 25 MG Travoprost (Travatan Z) 1 drops HS OPB 10/13/16 21:00 11/12/16 20:59 10/13/16 21:06 1 DROPS Miscellaneous Information (Pharmacy Consult) 1 ea UD PRN N/A 10/13/16 09:00 11/12/16 08:59 Ceftriaxone Sodium 2000 mg/ Dextrose 70 ml @ 140 mls/hr DAILY@2300 IV 10/12/16 23:00 11/23/16 22:59 10/13/16 23:30 140 MLS/HR Heparin Sodium (Porcine) (Heparin 10 Unit/ ml 5 ml Flush) 5 ml PRN PRN FLUSH 10/13/16 02:00 11/12/16 01:59 Senna/Docusate Sodium (Senokot S Tab) 1 tab QAM PRN PO 10/13/16 14:30 11/12/16 14:29 10/14/16 08:22 1 TAB
--- NOTE | 2016-10-14 16:04 | Nephrology Consultation ---
Nephrology Consultation Date of Consultation: Oct 14, 2016. Attending Physician: Dr Baez Requesting Physician: Dr Baez Reason for Consultation: chronic hyponatremia, renal failure History of Present Illness 70 year old female admitted 10/11 w/ L hip pain from [facility] after recent hospitalization here 09/27-10/05 for MSSA bacteremia attributed to septic L hip, L hip AVN, uti. Also diagnosed that admission w/ a fib w/ RVR and heart failure, acute renal failure. Other PMH includes HTN, reformed tobacco user (quit 2011) , chronic back pain, chronic hyponatremia since at least 2015. She presented at admission earlier this month on hctz w/ sNa 120, improved to 134 by hosp d/ c. she had salt tablets during admission but was ultimately d/c on 1.5L fluid restriction and no other meds to treat hyponatremia attributed to hctz use and chronic pain. D/c creatinine was 1.9, d/c na 134. On readmission, creat was 1.4, sNa 128; today creat 1.3 and sNa 130. She had been receiving NS at 60 mL hourly until late last evening; has received no diuretics this admission and currently on no fluid limit. appetite is borderline she states; pain reasonably controlled for now; no n/v. Past Medical/Surgical History as per HPI Family History FH: esophageal cancer FATHER Social History Smoking Status: Former Smoker (quit 5 yeras ago) Drug Use: none Marital Status: single Occupation Status: retired Allergies Coded Allergies: Latex1 -Allergic Contact Dermititis (Verified Allergy, Severe, RESPIRATORY DISTRESS, 10/12/16) Brimonidine (Verified Allergy, Intermediate, OTHER-SEE COMMENT, 10/12/16) Toxic conjunctivitis Nickel (Verified Allergy, Unknown, RASH, 10/12/16) Oxycodone (Verified Allergy, Unknown, GI SYMPTOMS, 10/12/16) PT STATES "CAN TAKE TYENOL W/CODIENE WITH OUT ANY DIFFICULTY". Diphenhydramine (Verified Adverse Reaction, Severe, DELIRIUM, 10/12/16) as per patient opposite effect Medications Current Inpatient Medications Medications (Trade) Dose Ordered Sig/Viviane Route Start Time Stop Time Status Last Admin Dose Admin Acetaminophen (Tylenol Tab) 650 mg Q4H PRN PO 10/12/16 21:15 11/11/16 21:14 10/14/16 08:20 650 MG Nitroglycerin (Nitrostat Tab) 0.4 mg UD PRN SL 10/12/16 21:15 11/11/16 21:14 Hydromorphone HCl (Dilaudid Inj) 0.5 mg Q6H PRN IV 10/12/16 21:15 10/26/16 21:14 Ondansetron HCl (Zofran Inj) 4 mg Q6H PRN IV 10/12/16 21:15 11/11/16 21:14 10/13/16 04:06 4 MG Tramadol HCl (Ultram Tab) not relieved by tylenol @ Q6H PRN PO 10/12/16 21:15 11/11/16 21:14 10/14/16 06:33 50 MG Diltiazem HCl (Cardizem Cd Cap) 180 mg QAM PO 10/13/16 09:00 11/12/16 08:59 10/14/16 08:20 180 MG Gabapentin (Neurontin Cap) 200 mg BID@0900,1400 PO 10/13/16 09:00 11/12/16 08:59 10/14/16 08:20 200 MG Gabapentin (Neurontin Cap) 300 mg HS PO 10/13/16 21:00 11/12/16 20:59 10/13/16 21:07 300 MG Hydromorphone HCl (Dilaudid Tab) 2 mg Q6H PRN PO 10/12/16 21:15 10/26/16 21:14 10/13/16 19:30 2 MG Multivitamins/ Minerals (Multivitamin W/ Minerals Tab) 1 tab DAILY PO 10/13/16 09:00 11/12/16 08:59 10/14/16 08:19 1 TAB Nortriptyline HCl (Pamelor Cap) 25 mg HS PO 10/13/16 21:00 11/12/16 20:59 10/13/16 21:07 25 MG Travoprost (Travatan Z) 1 drops HS OPB 10/13/16 21:00 11/12/16 20:59 10/13/16 21:06 1 DROPS Miscellaneous Information (Pharmacy Consult) 1 ea UD PRN N/A 10/13/16 09:00 11/12/16 08:59 Ceftriaxone Sodium 2000 mg/ Dextrose 70 ml @ 140 mls/hr DAILY@2300 IV 10/12/16 23:00 11/23/16 22:59 10/13/16 23:30 140 MLS/HR Heparin Sodium (Porcine) (Heparin 10 Unit/ ml 5 ml Flush) 5 ml PRN PRN FLUSH 10/13/16 02:00 11/12/16 01:59 Senna/Docusate Sodium (Senokot S Tab) 1 tab QAM PRN PO 10/13/16 14:30 11/12/16 14:29 10/14/16 08:22 1 TAB Magnesium Sulfate 1 gm/Prmx 100 ml @ 100 mls/hr ONE ONCE IV 10/14/16 08:45 10/14/16 09:44 Home Meds and Scripts Medications Dose Route/Sig Max Daily Dose Days Date Category Dose Instructions Coricidin Hbp Cough & Col (Chlorpheniramine-Dm) 1 Tab Tab 1 Tab PO Q6H PRN 10/12/16 Reported Tylenol (Acetaminophen) 325 Mg Tab 650 Mg PO Q4 PRN 10/12/16 Reported Fleet Enema (Sodium Phosphate/Biphosphate) Tayler 1 Ea HI DAILY PRN 10/12/16 Reported Dulcolax (Bisacodyl) 10 Mg Sup 1 Supp HI DAILY PRN 10/12/16 Reported Jantoven (Warfarin Sodium) 4 Mg Tab 4 Mg PO DIRECTED 10/12/16 Reported TAKE 4MG TABLET EVERY SATURDAY, SATURDAY, SATURDAY, SATURDAY , SATURDAY Jantoven (Warfarin Sodium) 2 Mg Tab 2 Mg PO DIRECTED 10/12/16 Reported TAKE 2MG EVERY SATURDAY AND SATURDAY Hydromorphone HCl 2 Mg Tab 2 Mg PO Q6H PRN 7 10/05/16 Rx Nortriptyline HCl 25 Mg Cap 25 Mg PO HS 30 10/05/16 Rx Diltiazem HCl ER (Diltiazem HCl) 180 Mg Capcr 180 Mg PO QAM 30 10/05/16 Rx Ceftriaxone Sodium (Ceftriaxone Sod) 2 Gm Inj 2 Gm IV DAILY 35 10/05/16 Rx Cont with last dose on 11/02/16 Centrum Silver Adult 50+ (Multiple Vitamins W/ Minerals) 1 Tab Tab 1 Tab PO DAILY 09/26/16 Reported Travatan Z (Travoprost) 0.004 % Yonathan 1 Drops OPB HS 09/26/16 Reported Pepcid (Famotidine) 20 Mg Tab 20 Mg PO DIRECTED PRN 09/26/16 Reported Citracal Calcium+D Slow R (Calcium-Magnesium W/ Vitamin D) 1 Tab Tab 1,200 Mg PO DAILY 04/29/16 Reported Neurontin (Gabapentin) 100 Mg Cap 200 Mg PO BID 04/29/16 Reported morning and afternoon Neurontin (Gabapentin) 300 Mg Cap 300 Mg PO HS 01/23/16 Reported Ultram (Tramadol HCl) 50 Mg Tab 50 Mg PO Q6 PRN 11/16/13 Reported Review of Systems Constitutional: + weakness, + fatigue, No fever, No chills Eyes: No worsening of vision ENT: No hearing loss Respiratory: + cough (chronic stable), No shortness of breath Cardiac: + edema (worse since d/c), No chest pain, No orthopnea, No palpitations Abdomen: No pain, No nausea, No vomiting, No diarrhea, No constipation Musculoskeletal: + joint pain (L hip, back) Female : No dysuria, No urinary frequency, No hematuria Neuro: + weakness, + balance problems, No memory loss Psych: No depression symptoms, No anxiety Heme: No abnormal bleeding/bruising Endo: + fatigue Skin: No rash Physical Exam Date Time Temp Pulse Resp B/P (MAP) Pulse Ox O2 Delivery O2 Flow Rate FiO2 10/14/16 07:10 36.9 101 18 143/81 (101) 96 Room Air 10/14/16 04:28 36.6 56 14 100/66 (77) 99 Room Air 10/14/16 04:00 Room Air 10/14/16 00:38 36.8 105 16 118/67 (84) 96 Room Air 10/14/16 00:00 Room Air 10/13/16 20:00 Nasal Cannula 1.0 10/13/16 19:51 36.7 105 20 135/81 (99) 95 Nasal Cannula 1.5 10/13/16 16:00 Nasal Cannula 10/13/16 15:48 36.8 99 20 123/72 (89) 99 Nasal Cannula 1.5 10/13/16 12:00 Nasal Cannula 10/13/16 10:20 37.2 106 16 128/79 96 10/13/16 09:20 36.9 104 18 130/79 99 10/13/16 08:50 36.8 92 18 144/80 92 General Appearance: WD/WN, no apparent distress, + pertinent finding (on RA, maneuvers readily for exam) Eyes: EOMI ENT: hearing grossly normal Neck: supple Respiratory/Chest: no respiratory distress, no accessory muscle use, + crackles (a few fine bibasilar) Cardiovascular: + tachycardia, + irregularly irregular Abdomen: normal bowel sounds, non tender, soft, + pertinent finding (no benz) Extremities: + pertinent finding (L 2+ ankle/pedal edema, no RLE edema) Neurologic/Psych: alert, normal mood/affect, oriented x 3 Skin: no jaundice, warm/dry, no rash Diagnostics Last 24 Hours Test 10/13/16 16:58 10/13/16 19:15 10/14/16 04:50 Sodium Level 127 mmol/L 130 mmol/L Potassium Level 4.0 mmol/L 4.0 mmol/L Chloride Level 93 mmol/L 95 mmol/L Carbon Dioxide Level 28 mmol/L 28 mmol/L Anion Gap 6.0 mmol/L 7.0 mmol/L Blood Urea Nitrogen 19 mg/dl 17 mg/dl Creatinine 1.40 mg/dl 1.30 mg/dl Est Creatinine Clear Calc Drug Dose 35.4 ml/min 38.1 ml/min Estimated GFR () 44.3 48.5 Estimated GFR (Non- 38.2 41.8 BUN/Creatinine Ratio 13.7 12.9 Random Glucose 90 mg/dl 90 mg/dl Osmolality 270 mOsm/kg Calcium Level 8.8 mg/dl 8.9 mg/dl Urine Osmolality 238 mOms/kg Urine Random Sodium 41 mEq/L White Blood Count 8.41 K/uL Red Blood Count 3.13 M/uL Hemoglobin 9.3 g/dL Hematocrit 27.7 % Mean Corpuscular Volume 88.5 fL Mean Corpuscular Hemoglobin 29.7 pg Mean Corpuscular Hemoglobin Concent 33.6 g/dl Platelet Count 313 K/uL Mean Platelet Volume 8.1 fL Neutrophils (%) (Auto) 64.4 % Lymphocytes (%) (Auto) 21.5 % Monocytes (%) (Auto) 8.3 % Eosinophils (%) (Auto) 4.4 % Basophils (%) (Auto) 1.0 % Neutrophils # (Auto) 5.42 K/uL Lymphocytes # (Auto) 1.81 K/uL Monocytes # (Auto) 0.70 K/uL Eosinophils # (Auto) 0.37 K/uL Basophils # (Auto) 0.08 K/uL RDW Standard Deviation 50.1 fL RDW Coefficient of Variation 15.4 % Immature Granulocyte % (Auto) 0.4 % Immature Granulocyte # (Auto) 0.03 K/uL Prothrombin Time 19.8 SECONDS Prothromb Time International Ratio 1.8 Magnesium Level 1.7 mg/dl Diagnostic Radiology: cxr clear TTE 09/2016 EF 60%, normal LV function, wall motion, wall dimensions; no valvular lesions or dz seen Assessment & Plan 70 y/o F w/ L hip avascular necrosis and degenerative disease w/ recent admission here earlier this month for septic L hip arthritis and MSSA bacteremia , RASHEL, acute on chronic hyponatremia, new onset AFib w/ RVR, per pt asymptomatic K pniae uti. Other PMH includes chronic low back pain, HTN, chronic hyponatremia. Baseline creatinine early this month 1.0; peak creat last admission 2.5, was 1.9 by d/c and attributed to ATN from nsaids, sepsis. Pulmonary renal syndrome also considered last admission but serologies negative. Chronic hyponatremia -stable/ improving very slowly w/ conservative mgt. no indication at this time for diuretics, fluid limit, or other interventions. -control pain and nausea both of which can worsen low sodium >recheck bmp in am -goal sNa in am is 133 Acute renal failure, recovering ATN -w/ ongoing slow improvement after recent d/c w/ sCreat 1.9; cont daily bmp; avoid nephrotoxins L hip AVN/septic joint c/b MSSA bacteremia -on longer term abtx; per primary service Appreciate consult; will follow with you. Care coordinated w/ Dr Baez.
[2016-10-14] MEDS: HYDROmorphone HCL 2 MG TAB PO PRN (19:32)
[2016-10-14] MEDS: GABAPENTIN 300 MG CAP PO SCH (21:41)
[2016-10-14] MEDS: NORTRIPTYLINE HCL 25 MG CAP PO SCH (21:41)
[2016-10-14] MEDS: TRAVOPROST Z 0.004% OPH SOLN 2.5 ML BTL OPB SCH (21:42)
[2016-10-14] MEDS: CEFTRIAXONE SOD INJ 2000 MG in DEXTROSE 5% 50ML IV SCH (23:21)
[2016-10-15] VITALS (9 sets, daily range): BP systolic 123–149; BP diastolic 66–81; PULSE 84–105; TEMP 36.7–36.9; O2SAT 92–98
[2016-10-15] MEDS: ACETAMINOPHEN 325 MG TAB PO PRN ×2 (03:57→12:10)
[2016-10-15 05:08] LABS: BASO % 0.8 %; BASO ABS # 0.06 K/uL (0-0.2); COMPLETE YES; EOS % 5.8 %; HEMATOCRIT 27.1 % (37-47); IG% 0.4 %; LYMPH % 19.5 %; LYMPH ABS # 1.52 K/uL (1.2-3.4); MEAN CELL VOLUME 88.9 fL (80-100); MEAN CORPUSCULAR HEMOGLOBIN 29.8 pg (25-34); MEAN CORPUSCULAR HGB CONC 33.6 g/dl (32-36); MEAN PLATELET VOLUME 8.4 fL (7.4-10.4); MONO % 8.2 %; NEUT % 65.3 %; PLATELET COUNT 322 K/uL (130-400); RED BLOOD COUNT 3.05 M/uL (4.2-5.4); WHITE BLOOD COUNT 7.79 K/uL (4.8-10.8)
[2016-10-15 05:16] LABS: INR 1.4 (0.9-1.1); PROTHROMBIN TIME (PATIENT) 15.5 SECONDS (9.0-12.0)
[2016-10-15 05:36] LABS: CREATININE 1.3 mg/dl (0.60-1.20)
[2016-10-15 05:37] LABS: CALCIUM 8.4 mg/dl (8.5-10.1); MAGNESIUM 1.4 mg/dl (1.8-2.4); POTASSIUM 3.7 mmol/L (3.5-5.1)
[2016-10-15] MEDS: GABAPENTIN 100 MG CAP PO SCH ×2 (08:05→14:06)
[2016-10-15] MEDS: MAGNESIUM SULFATE 1GM / D5W 1 GM in PREMIXED IN D5W 100 ML IV SCH ×2 (08:05→09:29)
[2016-10-15] MEDS: DILTIAZEM HCL 180 MG CAPCR PO SCH (08:06)
[2016-10-15] MEDS: CEROVITE ADV FORMULA TAB PO SCH (08:06)
--- NOTE | 2016-10-15 08:34 | Nephrology Progress Note ---
Nephrology Progress Note Date of Service: Oct 15, 2016. Subjective no N/V, no sob, intermittently uncontrolled pain natalya late in day yesterday; wondering about fluid limit or not Objective Date Time Temp Pulse Resp B/P (MAP) Pulse Ox O2 Delivery O2 Flow Rate FiO2 10/15/16 08:06 36.8 90 18 132/76 (94) 96 10/15/16 04:00 Room Air 10/15/16 03:19 36.9 105 20 123/67 (85) 92 Room Air 10/14/16 23:59 Room Air 10/14/16 23:25 36.9 102 20 131/79 (96) 97 Room Air 10/14/16 20:00 Room Air 10/14/16 19:02 36.7 97 20 128/78 (95) 93 Room Air 10/14/16 16:00 Room Air 10/14/16 15:19 36.8 85 20 119/70 (86) 95 Room Air 10/14/16 12:20 Room Air 10/14/16 11:20 36.7 90 16 135/81 (99) 91 Room Air Physical Exam: General Appearance: WD/WN, no apparent distress, + pertinent finding (on RA, maneuvers easily for exam) Eyes: EOMI ENT: hearing grossly normal Neck: supple Respiratory/Chest: no respiratory distress, no accessory muscle use diminished BL bases but clear Cardiovascular: regularly spaced beats in 90s Abdomen: normal bowel sounds, non tender, soft, + pertinent finding (no benz) Extremities: + pertinent finding (L 1+ ankle/pedal edema, no RLE edema) Neurologic/Psych: alert, normal mood/affect, oriented x 3 Skin: no jaundice, warm/dry, no rash Current Inpatient Medications Medications (Trade) Dose Ordered Sig/Viviane Route Start Time Stop Time Status Last Admin Dose Admin Acetaminophen (Tylenol Tab) 650 mg Q4H PRN PO 10/12/16 21:15 11/11/16 21:14 10/15/16 03:57 650 MG Nitroglycerin (Nitrostat Tab) 0.4 mg UD PRN SL 10/12/16 21:15 11/11/16 21:14 Hydromorphone HCl (Dilaudid Inj) 0.5 mg Q6H PRN IV 10/12/16 21:15 10/26/16 21:14 Ondansetron HCl (Zofran Inj) 4 mg Q6H PRN IV 10/12/16 21:15 11/11/16 21:14 10/13/16 04:06 4 MG Tramadol HCl (Ultram Tab) not relieved by tylenol @ Q6H PRN PO 10/12/16 21:15 11/11/16 21:14 10/14/16 23:02 50 MG Diltiazem HCl (Cardizem Cd Cap) 180 mg QAM PO 10/13/16 09:00 11/12/16 08:59 10/15/16 08:06 180 MG Gabapentin (Neurontin Cap) 200 mg BID@0900,1400 PO 10/13/16 09:00 11/12/16 08:59 10/15/16 08:05 200 MG Gabapentin (Neurontin Cap) 300 mg HS PO 10/13/16 21:00 11/12/16 20:59 10/14/16 21:41 300 MG Hydromorphone HCl (Dilaudid Tab) 2 mg Q6H PRN PO 10/12/16 21:15 10/26/16 21:14 10/14/16 19:32 2 MG Multivitamins/ Minerals (Multivitamin W/ Minerals Tab) 1 tab DAILY PO 10/13/16 09:00 11/12/16 08:59 10/15/16 08:06 1 TAB Nortriptyline HCl (Pamelor Cap) 25 mg HS PO 10/13/16 21:00 11/12/16 20:59 10/14/16 21:41 25 MG Travoprost (Travatan Z) 1 drops HS OPB 10/13/16 21:00 11/12/16 20:59 10/14/16 21:42 1 DROPS Miscellaneous Information (Pharmacy Consult) 1 ea UD PRN N/A 10/13/16 09:00 11/12/16 08:59 Ceftriaxone Sodium 2000 mg/ Dextrose 70 ml @ 140 mls/hr DAILY@2300 IV 10/12/16 23:00 11/23/16 22:59 10/14/16 23:21 140 MLS/HR Heparin Sodium (Porcine) (Heparin 10 Unit/ ml 5 ml Flush) 5 ml PRN PRN FLUSH 10/13/16 02:00 11/12/16 01:59 Senna/Docusate Sodium (Senokot S Tab) 1 tab QAM PRN PO 10/13/16 14:30 11/12/16 14:29 10/14/16 08:22 1 TAB Magnesium Sulfate 1 gm/Prmx 100 ml @ 100 mls/hr TODAY@0800,0900 IV 10/15/16 08:00 10/15/16 12:00 10/15/16 08:05 100 MLS/HR Last 24 Hours Test 10/15/16 04:33 White Blood Count 7.79 K/uL Red Blood Count 3.05 M/uL Hemoglobin 9.1 g/dL Hematocrit 27.1 % Mean Corpuscular Volume 88.9 fL Mean Corpuscular Hemoglobin 29.8 pg Mean Corpuscular Hemoglobin Concent 33.6 g/dl Platelet Count 322 K/uL Mean Platelet Volume 8.4 fL Neutrophils (%) (Auto) 65.3 % Lymphocytes (%) (Auto) 19.5 % Monocytes (%) (Auto) 8.2 % Eosinophils (%) (Auto) 5.8 % Basophils (%) (Auto) 0.8 % Neutrophils # (Auto) 5.09 K/uL Lymphocytes # (Auto) 1.52 K/uL Monocytes # (Auto) 0.64 K/uL Eosinophils # (Auto) 0.45 K/uL Basophils # (Auto) 0.06 K/uL RDW Standard Deviation 49.6 fL RDW Coefficient of Variation 15.1 % Immature Granulocyte % (Auto) 0.4 % Immature Granulocyte # (Auto) 0.03 K/uL Prothrombin Time 15.5 SECONDS Prothromb Time International Ratio 1.4 Sodium Level 131 mmol/L Potassium Level 3.7 mmol/L Chloride Level 98 mmol/L Carbon Dioxide Level 26 mmol/L Anion Gap 7.0 mmol/L Blood Urea Nitrogen 18 mg/dl Creatinine 1.30 mg/dl Est Creatinine Clear Calc Drug Dose 39.0 ml/min Estimated GFR () 48.5 Estimated GFR (Non- 41.8 BUN/Creatinine Ratio 14.0 Random Glucose 96 mg/dl Calcium Level 8.4 mg/dl Magnesium Level 1.4 mg/dl Assessment & Plan 70 y/o F w/ L hip avascular necrosis and degenerative disease w/ recent admission here earlier this month for septic L hip arthritis and MSSA bacteremia , RASHEL, acute on chronic hyponatremia, new onset AFib w/ RVR, per pt asymptomatic at that admission K pniae uti. Other PMH includes chronic low back pain, HTN, chronic hyponatremia. Baseline creatinine early this month 1.0 ; peak creat last admission 2.5, was 1.9 by d/c and attributed to ATN from nsaids, sepsis. Pulmonary renal syndrome also considered last admission but serologies negative. Chronic hyponatremia -again stable/ improving very slowly w/ conservative mgt. no indication at this time for diuretics, fluid limit, or other interventions. -I advised her to focus on good solid food intake; no fluid limit for now specifically but not to go overboard either -control pain and nausea both of which can worsen low sodium >recheck bmp in am -goal sNa in am is 135 Acute renal failure, recovering ATN >creat unchanged today but overall slowly improving -recent d/c w/ sCreat 1.9; cont daily bmp; avoid nephrotoxins L hip AVN/septic joint c/b MSSA bacteremia -on longer term abtx; per primary service Appreciate consult; will follow with you. Care coordinated w/ Dr Baez.
[2016-10-15] MEDS: TRAMADOL HCL 50 MG TAB PO PRN ×2 (12:09→21:21)
--- NOTE | 2016-10-15 15:49 | Progress Note ---
Medicine Progress Note Date & Time of Visit: Oct 15, 2016 at 15:36. Subjective Pt was seen and examined Sitting in chair comfortable with no distress Pt said that her left hip pain seems to improve Denies any chest pain, palpitation and sob Objective Last 8 Hrs Date Time Temp Pulse Resp B/P (MAP) Pulse Ox O2 Delivery O2 Flow Rate FiO2 10/15/16 12:21 36.8 88 18 139/66 (90) 95 10/15/16 12:00 92 Room Air 1.0 10/15/16 08:06 36.8 90 18 132/76 (94) 96 10/15/16 08:00 92 Room Air 1.0 Physical Exam: General- No acute distress Head- atraumatic Eyes- PERRL, EOMI ENT- oropharynx clear Neck- supple, no JVD Lungs- clear to auscultation Heart- regular, no murmur Abdomen- normal bowel sounds, soft Extremities- no calf tenderness, +LE edema L>R Neuro- alert, oriented x 3; PERRL, EOMI; no facial palsy Skin- warm & dry Laboratory Results: Last 24 Hours Test 10/15/16 04:33 White Blood Count 7.79 K/uL Red Blood Count 3.05 M/uL Hemoglobin 9.1 g/dL Hematocrit 27.1 % Mean Corpuscular Volume 88.9 fL Mean Corpuscular Hemoglobin 29.8 pg Mean Corpuscular Hemoglobin Concent 33.6 g/dl Platelet Count 322 K/uL Mean Platelet Volume 8.4 fL Neutrophils (%) (Auto) 65.3 % Lymphocytes (%) (Auto) 19.5 % Monocytes (%) (Auto) 8.2 % Eosinophils (%) (Auto) 5.8 % Basophils (%) (Auto) 0.8 % Neutrophils # (Auto) 5.09 K/uL Lymphocytes # (Auto) 1.52 K/uL Monocytes # (Auto) 0.64 K/uL Eosinophils # (Auto) 0.45 K/uL Basophils # (Auto) 0.06 K/uL RDW Standard Deviation 49.6 fL RDW Coefficient of Variation 15.1 % Immature Granulocyte % (Auto) 0.4 % Immature Granulocyte # (Auto) 0.03 K/uL Prothrombin Time 15.5 SECONDS Prothromb Time International Ratio 1.4 Sodium Level 131 mmol/L Potassium Level 3.7 mmol/L Chloride Level 98 mmol/L Carbon Dioxide Level 26 mmol/L Anion Gap 7.0 mmol/L Blood Urea Nitrogen 18 mg/dl Creatinine 1.30 mg/dl Est Creatinine Clear Calc Drug Dose 39.0 ml/min Estimated GFR () 48.5 Estimated GFR (Non- 41.8 BUN/Creatinine Ratio 14.0 Random Glucose 96 mg/dl Calcium Level 8.4 mg/dl Magnesium Level 1.4 mg/dl Assessment & Plan ANEMIA Hgb 9.2 today Hbg was btw 9 to 11 on recent admission Rectal exam heme negative per ER provider S/P 2 units PRBC do far hgb stable, will restart coumadin Continue Monitor CBC LEFT HIP PAIN Recent septic arthritis L hip s/p dry tap, on ceftriaxone; AVN left hip CT of hip showed advanced degenerative change/deformity of the left femoral head is similar to prior studies with near complete loss of the joint space. Joint effusion and bursal fluid around the left hip is unchanged from Continue pain control PT/OT and advised pt to use a walker to ambulate to relieve the pressure on the left hip RECENT MSSA BACTEREMIA In setting of left hip septic arthritis; echo negative for vegetation on recent admission Continue IV ceftriaxone to complete 6 weeks course afebrile and no leukocytosis Stable HYPONATREMIA Na is 131 Monitor sodium level NA goal for tomorrow 135 Nephrology consulted HISTORY OF ATRIAL FIBRILLATION Currently in sinus tachycardia Coumadin was on hold due to anemia Resume coumadin Continue diltiazem INR 1.4 today HYPOMAGNESEMIA Mg 1.4 today MG replaced and monitor CKD STAGE III Had RASHEL on recent admission- creat up to 2's, baseline ~1.0, was 1.9 on discharge Creatine on admission 1.4 Creatine today 1.3 Monitor renal function Avoid nephrotoxins DVT PROPHYLAXIS resume coumadin INR 1.4 SCD's CODE STATUS FULL CODE Consultants: Nephrology Current Inpatient Medications: Current Inpatient Medications Medications (Trade) Dose Ordered Sig/Viviane Route Start Time Stop Time Status Last Admin Dose Admin Acetaminophen (Tylenol Tab) 650 mg Q4H PRN PO 10/12/16 21:15 11/11/16 21:14 10/15/16 12:10 650 MG Nitroglycerin (Nitrostat Tab) 0.4 mg UD PRN SL 10/12/16 21:15 11/11/16 21:14 Hydromorphone HCl (Dilaudid Inj) 0.5 mg Q6H PRN IV 10/12/16 21:15 10/26/16 21:14 Ondansetron HCl (Zofran Inj) 4 mg Q6H PRN IV 10/12/16 21:15 11/11/16 21:14 10/13/16 04:06 4 MG Tramadol HCl (Ultram Tab) not relieved by tylenol @ Q6H PRN PO 10/12/16 21:15 11/11/16 21:14 10/15/16 12:09 50 MG Diltiazem HCl (Cardizem Cd Cap) 180 mg QAM PO 10/13/16 09:00 11/12/16 08:59 10/15/16 08:06 180 MG Gabapentin (Neurontin Cap) 200 mg BID@0900,1400 PO 10/13/16 09:00 11/12/16 08:59 10/15/16 14:06 200 MG Gabapentin (Neurontin Cap) 300 mg HS PO 10/13/16 21:00 11/12/16 20:59 10/14/16 21:41 300 MG Hydromorphone HCl (Dilaudid Tab) 2 mg Q6H PRN PO 10/12/16 21:15 10/26/16 21:14 10/14/16 19:32 2 MG Multivitamins/ Minerals (Multivitamin W/ Minerals Tab) 1 tab DAILY PO 10/13/16 09:00 11/12/16 08:59 10/15/16 08:06 1 TAB Nortriptyline HCl (Pamelor Cap) 25 mg HS PO 10/13/16 21:00 11/12/16 20:59 10/14/16 21:41 25 MG Travoprost (Travatan Z) 1 drops HS OPB 10/13/16 21:00 11/12/16 20:59 10/14/16 21:42 1 DROPS Miscellaneous Information (Pharmacy Consult) 1 ea UD PRN N/A 10/13/16 09:00 11/12/16 08:59 Ceftriaxone Sodium 2000 mg/ Dextrose 70 ml @ 140 mls/hr DAILY@2300 IV 10/12/16 23:00 11/23/16 22:59 10/14/16 23:21 140 MLS/HR Heparin Sodium (Porcine) (Heparin 10 Unit/ ml 5 ml Flush) 5 ml PRN PRN FLUSH 10/13/16 02:00 11/12/16 01:59 Senna/Docusate Sodium (Senokot S Tab) 1 tab QAM PRN PO 10/13/16 14:30 11/12/16 14:29 10/14/16 08:22 1 TAB
[2016-10-15] MEDS: WARFARIN SOD 2.5 MG TAB PO SCH (16:34)
[2016-10-15] MEDS: HYDROmorphone HCL 2 MG TAB PO PRN (16:35)
[2016-10-15] MEDS: TRAVOPROST Z 0.004% OPH SOLN 2.5 ML BTL OPB SCH (20:13)
[2016-10-15] MEDS: GABAPENTIN 300 MG CAP PO SCH (20:13)
[2016-10-15] MEDS: NORTRIPTYLINE HCL 25 MG CAP PO SCH (20:13)
[2016-10-15] MEDS: CEFTRIAXONE SOD INJ 2000 MG in DEXTROSE 5% 50ML IV SCH (22:42)
[2016-10-16] VITALS (8 sets, daily range): BP systolic 129–150; BP diastolic 64–82; PULSE 74–109; TEMP 36.4–36.8; O2SAT 93–99
[2016-10-16] MEDS: HYDROmorphone HCL 2 MG TAB PO PRN ×4 (02:06→22:55)
[2016-10-16 05:08] LABS: BASO % 1.2 %; BASO ABS # 0.09 K/uL (0-0.2); EOS % 6.6 %; HEMATOCRIT 27.4 % (37-47); IG% 0.4 %; LYMPH % 19.7 %; LYMPH ABS # 1.47 K/uL (1.2-3.4); MEAN CELL VOLUME 89.3 fL (80-100); MEAN CORPUSCULAR HGB CONC 32.5 g/dl (32-36); NEUT % 64.1 %; PLATELET COUNT 313 K/uL (130-400); RED BLOOD COUNT 3.07 M/uL (4.2-5.4); WHITE BLOOD COUNT 7.48 K/uL (4.8-10.8)
[2016-10-16 05:29] LABS: INR 1.2 (0.9-1.1); PROTHROMBIN TIME (PATIENT) 12.7 SECONDS (9.0-12.0)
[2016-10-16] MEDS: TRAMADOL HCL 50 MG TAB PO PRN ×3 (05:34→19:42)
[2016-10-16 05:35] LABS: BUN/CREATININE RATIO 16.7 (10-20); CALCIUM 8.7 mg/dl (8.5-10.1); CREATININE 1.2 mg/dl (0.60-1.20); MAGNESIUM 1.6 mg/dl (1.8-2.4); POTASSIUM 3.9 mmol/L (3.5-5.1)
[2016-10-16 05:42] LABS: COMPLETE YES
[2016-10-16] MEDS: DOCUSATE SODIUM/SENNA 50/8.6MG TAB PO PRN (08:13)
[2016-10-16] MEDS: DILTIAZEM HCL 180 MG CAPCR PO SCH (08:13)
[2016-10-16] MEDS: CEROVITE ADV FORMULA TAB PO SCH (08:14)
[2016-10-16] MEDS: GABAPENTIN 100 MG CAP PO SCH ×2 (08:14→14:13)
[2016-10-16] MEDS ORDERED: MAGNESIUM SULFATE 1GM / D5W 1 GM in PREMIXED IN D5W 100 ML IV ONE (08:15)
[2016-10-16] MEDS: MAGNESIUM OXIDE 400 MG TAB PO SCH ×2 (10:12→20:30)
[2016-10-16] MEDS: ACETAMINOPHEN 325 MG TAB PO PRN (13:06)
[2016-10-16 14:08] LABS: HEMATOCRIT 28.3 % (37-47); MEAN CORPUSCULAR HEMOGLOBIN 29.3 pg (25-34); MEAN CORPUSCULAR HGB CONC 32.2 g/dl (32-36); MEAN PLATELET VOLUME 8.2 fL (7.4-10.4); PLATELET COUNT 331 K/uL (130-400); RED BLOOD COUNT 3.11 M/uL (4.2-5.4); WHITE BLOOD COUNT 7.57 K/uL (4.8-10.8)
[2016-10-16 14:20] LABS: INR 1.2 (0.9-1.1); PROTHROMBIN TIME (PATIENT) 12.6 SECONDS (9.0-12.0)
[2016-10-16 14:26] LABS: BUN/CREATININE RATIO 17.8 (10-20); CREATININE 1.1 mg/dl (0.60-1.20); MAGNESIUM 1.9 mg/dl (1.8-2.4); POTASSIUM 3.9 mmol/L (3.5-5.1)
[2016-10-16] MEDS: WARFARIN SOD 2.5 MG TAB PO SCH (16:10)
[2016-10-16] MEDS ORDERED: WARFARIN SOD 4 MG TAB PO ONE (18:30)
[2016-10-16] MEDS ORDERED: WARFARIN SOD 2.5 MG TAB PO ONE ×2 (19:00)
--- NOTE | 2016-10-16 19:07 | Progress Note ---
Medicine Progress Note Date & Time of Visit: Oct 16, 2016 at 18:51. Subjective Pt was seen and examined Sitting in bed comfortable with no distress watching TV She is doing much better her Lower extremities swelling slightly improved she wants to speak to casework specialist to see if she can get a compression device to go to the [facility] with she said that it helps her LE swelling denies any chest pain, palpitation,dizziness and SOB Objective Last 8 Hrs Date Time Temp Pulse Resp B/P (MAP) Pulse Ox O2 Delivery O2 Flow Rate FiO2 10/16/16 16:00 93 Room Air 10/16/16 15:18 36.8 96 20 150/77 (101) 93 Room Air 10/16/16 11:47 36.6 93 18 148/80 (102) 99 10/16/16 11:30 36.6 93 18 99 Physical Exam: General- No acute distress Head- atraumatic Eyes- PERRL, EOMI ENT- oropharynx clear Neck- supple, no JVD Lungs- clear to auscultation Heart- regular, no murmur Abdomen- normal bowel sounds, soft Extremities- no calf tenderness, +LE edema L>R Neuro- alert, oriented x 3; PERRL, EOMI; no facial palsy Skin- warm & dry Laboratory Results: Last 24 Hours Test 10/16/16 04:50 10/16/16 13:56 White Blood Count 7.48 K/uL 7.57 K/uL Red Blood Count 3.07 M/uL 3.11 M/uL Hemoglobin 8.9 g/dL 9.1 g/dL Hematocrit 27.4 % 28.3 % Mean Corpuscular Volume 89.3 fL 91.0 fL Mean Corpuscular Hemoglobin 29.0 pg 29.3 pg Mean Corpuscular Hemoglobin Concent 32.5 g/dl 32.2 g/dl Platelet Count 313 K/uL 331 K/uL Mean Platelet Volume 8.0 fL 8.2 fL Neutrophils (%) (Auto) 64.1 % Lymphocytes (%) (Auto) 19.7 % Monocytes (%) (Auto) 8.0 % Eosinophils (%) (Auto) 6.6 % Basophils (%) (Auto) 1.2 % Neutrophils # (Auto) 4.80 K/uL Lymphocytes # (Auto) 1.47 K/uL Monocytes # (Auto) 0.60 K/uL Eosinophils # (Auto) 0.49 K/uL Basophils # (Auto) 0.09 K/uL RDW Standard Deviation 49.4 fL 50.2 fL RDW Coefficient of Variation 15.1 % 15.1 % Immature Granulocyte % (Auto) 0.4 % Immature Granulocyte # (Auto) 0.03 K/uL Red Blood Cell Morphology Unremarkable Prothrombin Time 12.7 SECONDS 12.6 SECONDS Prothromb Time International Ratio 1.2 1.2 Sodium Level 132 mmol/L 133 mmol/L Potassium Level 3.9 mmol/L 3.9 mmol/L Chloride Level 100 mmol/L 98 mmol/L Carbon Dioxide Level 27 mmol/L 27 mmol/L Anion Gap 5.0 mmol/L 8.0 mmol/L Blood Urea Nitrogen 20 mg/dl 20 mg/dl Creatinine 1.20 mg/dl 1.10 mg/dl Est Creatinine Clear Calc Drug Dose 41.7 ml/min 45.1 ml/min Estimated GFR () 53.4 59.3 Estimated GFR (Non- 46.1 51.2 BUN/Creatinine Ratio 16.7 17.8 Random Glucose 87 mg/dl 100 mg/dl Calcium Level 8.7 mg/dl 9.0 mg/dl Magnesium Level 1.6 mg/dl 1.9 mg/dl Assessment & Plan ANEMIA Hgb 9.1 today Hbg was btw 9 to 11 on recent admission Rectal exam heme negative per ER provider S/P 2 units PRBC during this admission hgb stable Coumadin restarted yesterday Continue Monitor CBC LEFT HIP PAIN AVN left hip Recent septic arthritis L hip s/p dry tap, on ceftriaxone; CT of hip showed advanced degenerative change/deformity of the left femoral head is similar to prior studies with near complete loss of the joint space. Joint effusion and bursal fluid around the left hip is unchanged from Continue pain control PT/OT and advised pt to use a walker to ambulate to relieve the pressure on the left hip RECENT MSSA BACTEREMIA In setting of left hip septic arthritis; echo negative for vegetation on recent admission Continue IV ceftriaxone to complete 6 weeks course afebrile and no leukocytosis Stable HYPONATREMIA Na is 133 Monitor sodium level Nephrology consulted HISTORY OF ATRIAL FIBRILLATION Currently in sinus tachycardia Coumadin was on hold due to anemia Resume coumadin Continue diltiazem INR 1.2 today HYPOMAGNESEMIA Mg 1.6 today MG replaced and monitor repeat mg 1.9 CKD STAGE III Had RASHEL on recent admission- creat up to 2's, baseline ~1.0, was 1.9 on discharge Creatine on admission 1.4 Creatine today 1.1 Monitor renal function Avoid nephrotoxins DVT PROPHYLAXIS Coumadin resumed INR 1.2 SCD's CODE STATUS FULL CODE Disposition OK to discharge tomorrow to [facility] Continue physical therapy Continue antibiotic infusion with rocephin to complete 6 weeks course Follow up with Ortho once completed abx Follow up with Infectious disease Check BMP and CBC within 1 week Check INR Consultants: Nephrology Current Inpatient Medications: Current Inpatient Medications Medications (Trade) Dose Ordered Sig/Viviane Route Start Time Stop Time Status Last Admin Dose Admin Acetaminophen (Tylenol Tab) 650 mg Q4H PRN PO 10/12/16 21:15 11/11/16 21:14 10/16/16 13:06 650 MG Nitroglycerin (Nitrostat Tab) 0.4 mg UD PRN SL 10/12/16 21:15 11/11/16 21:14 Hydromorphone HCl (Dilaudid Inj) 0.5 mg Q6H PRN IV 10/12/16 21:15 10/26/16 21:14 Ondansetron HCl (Zofran Inj) 4 mg Q6H PRN IV 10/12/16 21:15 11/11/16 21:14 10/13/16 04:06 4 MG Tramadol HCl (Ultram Tab) not relieved by tylenol @ Q6H PRN PO 10/12/16 21:15 11/11/16 21:14 10/16/16 11:34 50 MG Diltiazem HCl (Cardizem Cd Cap) 180 mg QAM PO 10/13/16 09:00 11/12/16 08:59 10/16/16 08:13 180 MG Gabapentin (Neurontin Cap) 200 mg BID@0900,1400 PO 10/13/16 09:00 11/12/16 08:59 10/16/16 14:13 200 MG Gabapentin (Neurontin Cap) 300 mg HS PO 10/13/16 21:00 11/12/16 20:59 10/15/16 20:13 300 MG Hydromorphone HCl (Dilaudid Tab) 2 mg Q6H PRN PO 10/12/16 21:15 10/26/16 21:14 10/16/16 14:04 2 MG Multivitamins/ Minerals (Multivitamin W/ Minerals Tab) 1 tab DAILY PO 10/13/16 09:00 11/12/16 08:59 10/16/16 08:14 1 TAB Nortriptyline HCl (Pamelor Cap) 25 mg HS PO 10/13/16 21:00 11/12/16 20:59 10/15/16 20:13 25 MG Travoprost (Travatan Z) 1 drops HS OPB 10/13/16 21:00 11/12/16 20:59 10/15/16 20:13 1 DROPS Miscellaneous Information (Pharmacy Consult) 1 ea UD PRN N/A 10/13/16 09:00 11/12/16 08:59 Ceftriaxone Sodium 2000 mg/ Dextrose 70 ml @ 140 mls/hr DAILY@2300 IV 10/12/16 23:00 11/23/16 22:59 10/15/16 22:42 140 MLS/HR Heparin Sodium (Porcine) (Heparin 10 Unit/ ml 5 ml Flush) 5 ml PRN PRN FLUSH 10/13/16 02:00 11/12/16 01:59 10/16/16 14:10 5 ML Senna/Docusate Sodium (Senokot S Tab) 1 tab QAM PRN PO 10/13/16 14:30 11/12/16 14:29 10/16/16 08:13 1 TAB Warfarin Sodium (Coumadin Tab) 2.5 mg DAILY@16 PO 10/15/16 16:00 11/14/16 15:59 10/16/16 16:10 2.5 MG Magnesium Oxide (Mag-Ox Tab) 400 mg BID PO 10/16/16 09:00 11/15/16 08:59 10/16/16 10:12 400 MG Warfarin Sodium (Coumadin Tab) 4 mg ONE ONCE PO 10/16/16 18:30 10/16/16 18:31 UNV
[2016-10-16] MEDS: NORTRIPTYLINE HCL 25 MG CAP PO SCH (20:29)
[2016-10-16] MEDS: GABAPENTIN 300 MG CAP PO SCH (20:30)
[2016-10-16] MEDS: TRAVOPROST Z 0.004% OPH SOLN 2.5 ML BTL OPB SCH (20:30)
[2016-10-16] MEDS: CEFTRIAXONE SOD INJ 2000 MG in DEXTROSE 5% 50ML IV SCH (22:55)
[2016-10-17 05:40] LABS: HEMATOCRIT 26.6 % (37-47); MEAN CELL VOLUME 91.1 fL (80-100); MEAN CORPUSCULAR HEMOGLOBIN 29.1 pg (25-34); MEAN PLATELET VOLUME 8.2 fL (7.4-10.4); PLATELET COUNT 284 K/uL (130-400); RED BLOOD COUNT 2.92 M/uL (4.2-5.4); WHITE BLOOD COUNT 6.73 K/uL (4.8-10.8)
[2016-10-17 05:55] LABS: INR 1.3 (0.9-1.1); PROTHROMBIN TIME (PATIENT) 13.5 SECONDS (9.0-12.0)
[2016-10-17 06:05] LABS: BUN/CREATININE RATIO 16.3 (10-20); CALCIUM 8.7 mg/dl (8.5-10.1); POTASSIUM 4.1 mmol/L (3.5-5.1)
[2016-10-17 07:14] VITALS: BP 160/85; PULSE 101; TEMP 36.6; O2SAT 99
[2016-10-17 07:45] VITALS: O2SAT 99
[2016-10-17] MEDS: GABAPENTIN 100 MG CAP PO SCH ×2 (08:04→14:19)
[2016-10-17] MEDS: DOCUSATE SODIUM/SENNA 50/8.6MG TAB PO PRN (08:04)
[2016-10-17] MEDS: DILTIAZEM HCL 180 MG CAPCR PO SCH (08:04)
[2016-10-17] MEDS: CEROVITE ADV FORMULA TAB PO SCH (08:04)
[2016-10-17] MEDS: MAGNESIUM OXIDE 400 MG TAB PO SCH ×2 (08:04→20:48)
[2016-10-17] MEDS: HYDROmorphone HCL 2 MG TAB PO PRN ×2 (08:05→14:19)
[2016-10-17 10:30] VITALS: BP 154/83; PULSE 101; TEMP 36.4; O2SAT 98
[2016-10-17] MEDS: TRAMADOL HCL 50 MG TAB PO PRN ×2 (10:31→20:48)
[2016-10-17 10:42] LABS: INR 1.3 (0.9-1.1); PROTHROMBIN TIME (PATIENT) 14.3 SECONDS (9.0-12.0)
[2016-10-17 10:50] LABS: BUN/CREATININE RATIO 16.8 (10-20); CALCIUM 9.1 mg/dl (8.5-10.1)
[2016-10-17 13:56] VITALS: BP 123/68; PULSE 93; O2SAT 95
[2016-10-17 15:28] VITALS: BP 145/82; PULSE 94; TEMP 36.9; O2SAT 96
[2016-10-17 15:28] LABS: HEMATOCRIT 29.6 % (37-47)
[2016-10-17 16:00] VITALS: O2SAT 96
[2016-10-17] MEDS: ACETAMINOPHEN 325 MG TAB PO PRN (16:16)
--- NOTE | 2016-10-17 16:17 | Progress Note ---
Medicine Progress Note Date & Time of Visit: Oct 17, 2016 at 16:08. Subjective patient seen resting in bed, comfortable frustrated that she cannot have SCDs at the [facility] denies dizziness, chest pain, dyspnea no melena, or hematochezia denies leg pain no other symptoms states she is ready for discharge today Objective Last 8 Hrs Date Time Temp Pulse Resp B/P (MAP) Pulse Ox O2 Delivery O2 Flow Rate FiO2 10/17/16 15:28 36.9 94 20 145/82 (103) 96 10/17/16 13:56 93 18 123/68 (86) 95 Room Air 10/17/16 13:53 36.6 93 18 99 Room Air 10/17/16 10:30 36.4 101 18 154/83 (106) 98 Room Air Physical Exam: General-oriented x 3, not in distress, speaks in sentences with no effort Eyes- EOMI, anicteric Neck- supple, no JVD Lungs- clear breath sounds bilaterally Heart- regular rhythm; no murmur, normal rate Abdomen- normal bowel sounds, soft, nontender Extremities- right pedal edema, no warmth/tenderness/redness left pedal edema, no warmth/tenderness/redness Neuro- alert, oriented x 3;no gross focal deficits Skin- warm & dry Laboratory Results: Last 24 Hours Test 10/17/16 05:22 10/17/16 10:10 10/17/16 15:20 White Blood Count 6.73 K/uL Red Blood Count 2.92 M/uL Hemoglobin 8.5 g/dL 9.7 g/dL Hematocrit 26.6 % 29.6 % Mean Corpuscular Volume 91.1 fL Mean Corpuscular Hemoglobin 29.1 pg Mean Corpuscular Hemoglobin Concent 32.0 g/dl RDW Standard Deviation 50.0 fL RDW Coefficient of Variation 14.9 % Platelet Count 284 K/uL Mean Platelet Volume 8.2 fL Prothrombin Time 13.5 SECONDS 14.3 SECONDS Prothromb Time International Ratio 1.3 1.3 Sodium Level 132 mmol/L 133 mmol/L Potassium Level 4.1 mmol/L 4.0 mmol/L Chloride Level 99 mmol/L 97 mmol/L Carbon Dioxide Level 28 mmol/L 28 mmol/L Anion Gap 5.0 mmol/L 8.0 mmol/L Blood Urea Nitrogen 16 mg/dl 17 mg/dl Creatinine 1.00 mg/dl 1.00 mg/dl Est Creatinine Clear Calc Drug Dose 49.6 ml/min 49.6 ml/min Estimated GFR () 66.6 66.6 Estimated GFR (Non- 57.4 57.4 BUN/Creatinine Ratio 16.3 16.8 Random Glucose 78 mg/dl 93 mg/dl Calcium Level 8.7 mg/dl 9.1 mg/dl Assessment & Plan ANEMIA Hbg was btw 9 to 11 on recent admission Rectal exam heme negative per ER provider S/P 2 units PRBC during this admission hgb stable at 9.7 -- coumadin resumed monitor Hg LEFT HIP PAIN AVN left hip Recent septic arthritis L hip s/p dry tap, on ceftriaxone; CT of hip showed advanced degenerative change/deformity of the left femoral head is similar to prior studies with near complete loss of the joint space. Joint effusion and bursal fluid around the left hip is unchanged from Continue pain control PT/OT ordered RECENT MSSA BACTEREMIA In setting of left hip septic arthritis; echo negative for vegetation on recent admission Continue IV ceftriaxone to complete 6 weeks course afebrile and no leukocytosis Stable HYPONATREMIA Na is 133- stable Nephrology consulted HISTORY OF ATRIAL FIBRILLATION Currently in sinus tachycardia Coumadin was on hold due to anemia Continue diltiazem INR 1.3 -- coumadin increased to 4mg today HYPOMAGNESEMIA resolved CKD STAGE III Had RASHEL on recent admission- creat up to 2's, baseline ~1.0, was 1.9 on discharge Creatine on admission 1.4 Creatine today 1.1 -- resolved RIGHT LOWER LEG/FOOT SWELLING -- r/o DVT with Leg US DVT PROPHYLAXIS Coumadin INR 1.3 SCD's CODE STATUS FULL CODE Disposition -- OK to discharge tomorrow to [facility] Continue physical therapy Continue antibiotic infusion with rocephin to complete 6 weeks course Follow up with Ortho once completed abx Follow up with Infectious disease Check BMP and CBC within 1 week Check INR Consultants: Nephrology Current Inpatient Medications: Current Inpatient Medications Medications (Trade) Dose Ordered Sig/Viviane Route Start Time Stop Time Status Last Admin Dose Admin Acetaminophen (Tylenol Tab) 650 mg Q4H PRN PO 10/12/16 21:15 11/11/16 21:14 10/16/16 13:06 650 MG Nitroglycerin (Nitrostat Tab) 0.4 mg UD PRN SL 8/18/17 21:15 11/11/16 21:14 Hydromorphone HCl (Dilaudid Inj) 0.5 mg Q6H PRN IV 10/12/16 21:15 10/26/16 21:14 Ondansetron HCl (Zofran Inj) 4 mg Q6H PRN IV 10/12/16 21:15 11/11/16 21:14 10/13/16 04:06 4 MG Tramadol HCl (Ultram Tab) not relieved by tylenol @ Q6H PRN PO 10/12/16 21:15 11/11/16 21:14 10/17/16 10:31 50 MG Diltiazem HCl (Cardizem Cd Cap) 180 mg QAM PO 10/13/16 09:00 11/12/16 08:59 10/17/16 08:04 180 MG Gabapentin (Neurontin Cap) 200 mg BID@0900,1400 PO 10/13/16 09:00 11/12/16 08:59 10/17/16 14:19 200 MG Gabapentin (Neurontin Cap) 300 mg HS PO 10/13/16 21:00 11/12/16 20:59 10/16/16 20:30 300 MG Hydromorphone HCl (Dilaudid Tab) 2 mg Q6H PRN PO 10/12/16 21:15 10/26/16 21:14 10/17/16 14:19 2 MG Multivitamins/ Minerals (Multivitamin W/ Minerals Tab) 1 tab DAILY PO 10/13/16 09:00 11/12/16 08:59 10/17/16 08:04 1 TAB Nortriptyline HCl (Pamelor Cap) 25 mg HS PO 10/13/16 21:00 11/12/16 20:59 10/16/16 20:29 25 MG Travoprost (Travatan Z) 1 drops HS OPB 10/13/16 21:00 11/12/16 20:59 10/16/16 20:30 1 DROPS Miscellaneous Information (Pharmacy Consult) 1 ea UD PRN N/A 10/13/16 09:00 11/12/16 08:59 Ceftriaxone Sodium 2000 mg/ Dextrose 70 ml @ 140 mls/hr DAILY@2300 IV 10/12/16 23:00 11/23/16 22:59 10/16/16 22:55 140 MLS/HR Heparin Sodium (Porcine) (Heparin 10 Unit/ ml 5 ml Flush) 5 ml PRN PRN FLUSH 10/13/16 02:00 11/12/16 01:59 10/17/16 10:20 5 ML Senna/Docusate Sodium (Senokot S Tab) 1 tab QAM PRN PO 10/13/16 14:30 11/12/16 14:29 10/16/16 08:13 1 TAB Magnesium Oxide (Mag-Ox Tab) 400 mg BID PO 10/16/16 09:00 11/15/16 08:59 10/17/16 08:04 400 MG Warfarin Sodium (Coumadin Tab) 4 mg DAILY@16 PO 10/17/16 16:00 11/16/16 15:59
[2016-10-17] MEDS: WARFARIN SOD 4 MG TAB PO SCH (16:32)
--- NOTE | 2016-10-17 19:14 | DIAGNOSTIC IMAGING REPORT ---
ULTRASOUND RIGHT LOWER EXTREMITY VENOUS CLINICAL HISTORY: Right leg swelling. COMPARISON STUDY: No priors. TECHNIQUE: Real-time, grayscale, and color Doppler sonography of the deep veins of the right lower extremity was performed from the inguinal crease to the calf. Compression and augmentation were utilized. FINDINGS: There is no sonographic evidence of deep venous thrombosis identified in the right lower extremity. The common femoral, superficial femoral, and popliteal veins are patent and normally compressible. The greater saphenous vein and the profunda femoris vein at the junction with the common femoral vein are clear. The visualized calf veins are patent. IMPRESSION: There is no sonographic evidence of deep venous thrombosis identified in the right lower extremity. Electronically signed by: Rivera Díaz M.D. 10/17/2016 7:12 PM Dictated Date/Time: 10/17/2016 7:12 PM
[2016-10-17] MEDS: GABAPENTIN 300 MG CAP PO SCH (20:48)
[2016-10-17] MEDS: NORTRIPTYLINE HCL 25 MG CAP PO SCH (20:48)
[2016-10-17] MEDS: TRAVOPROST Z 0.004% OPH SOLN 2.5 ML BTL OPB SCH (20:48)
[2016-10-17] MEDS: CEFTRIAXONE SOD INJ 2000 MG in DEXTROSE 5% 50ML IV SCH (23:29)
[2016-10-18] MEDS: HYDROmorphone HCL 2 MG TAB PO PRN ×2 (00:16→09:20)
[2016-10-18 00:32] VITALS: BP 123/72; PULSE 95; TEMP 37; O2SAT 96
[2016-10-18 06:44] LABS: BASO % 1.2 %; BASO ABS # 0.08 K/uL (0-0.2); EOS % 8.6 %; HEMATOCRIT 27.1 % (37-47); IG% 0.2 %; LYMPH % 21.7 %; LYMPH ABS # 1.41 K/uL (1.2-3.4); MEAN CELL VOLUME 92.2 fL (80-100); MEAN CORPUSCULAR HEMOGLOBIN 28.9 pg (25-34); MEAN CORPUSCULAR HGB CONC 31.4 g/dl (32-36); MEAN PLATELET VOLUME 8.5 fL (7.4-10.4); MONO % 10.4 %; NEUT % 57.9 %; PLATELET COUNT 314 K/uL (130-400); RED BLOOD COUNT 2.94 M/uL (4.2-5.4); WHITE BLOOD COUNT 6.51 K/uL (4.8-10.8)
[2016-10-18 07:12] LABS: INR 1.4 (0.9-1.1); PROTHROMBIN TIME (PATIENT) 15.5 SECONDS (9.0-12.0)
[2016-10-18 07:20] LABS: BUN/CREATININE RATIO 18.2 (10-20); CALCIUM 8.9 mg/dl (8.5-10.1); POTASSIUM 4.1 mmol/L (3.5-5.1)
[2016-10-18 07:30] VITALS: BP 136/76; PULSE 101; TEMP 36.6; O2SAT 96
[2016-10-18] MEDS: GABAPENTIN 100 MG CAP PO SCH ×2 (07:45→13:51)
[2016-10-18] MEDS: DILTIAZEM HCL 180 MG CAPCR PO SCH (07:45)
[2016-10-18] MEDS: MAGNESIUM OXIDE 400 MG TAB PO SCH (07:45)
[2016-10-18] MEDS: CEROVITE ADV FORMULA TAB PO SCH (07:45)
[2016-10-18] MEDS: TRAMADOL HCL 50 MG TAB PO PRN ×2 (07:47→13:54)
[2016-10-18 07:52] LABS: COMPLETE YES
[2016-10-18 08:00] VITALS: O2SAT 96
[2016-10-18 10:38] LABS: INR 1.5 (0.9-1.1); PROTHROMBIN TIME (PATIENT) 16.1 SECONDS (9.0-12.0)
[2016-10-18 10:56] LABS: BUN/CREATININE RATIO 18.2 (10-20); CALCIUM 8.6 mg/dl (8.5-10.1)
--- NOTE | 2016-10-18 13:12 | Progress Note ---
Medicine Progress Note Date & Time of Visit: Oct 18, 2016 at 13:00. Subjective seen resting in bedside chair, comfortable states she feels fine overall no chest pain, dyspnea, dizziness no melena/hematochezia, bleeding hip pain about the same denies other symptoms no problems ambulating states she is ready for discharge today Objective Last 8 Hrs Date Time Temp Pulse Resp B/P (MAP) Pulse Ox O2 Delivery O2 Flow Rate FiO2 10/18/16 08:00 96 Room Air 10/18/16 07:30 36.6 101 18 136/76 (96) 96 Room Air Physical Exam: General-oriented x 3, not in distress, speaks in sentences with no effort Eyes-anicteric Neck- no JVD Lungs- clear breath sounds bilaterally, no rales/wheezes Heart- regular rhythm; no murmur, normal rate Abdomen- normal bowel sounds, soft, nontender Extremities- mild right lower leg edema, no warmth/tenderness/redness left pedal edema, no warmth/tenderness/redness Neuro- alert, oriented x 3;no gross focal deficits Skin- warm & dry Laboratory Results: Last 24 Hours Test 10/17/16 15:20 10/18/16 05:32 10/18/16 08:11 10/18/16 10:18 Hemoglobin 9.7 g/dL 8.5 g/dL Hematocrit 29.6 % 27.1 % White Blood Count 6.51 K/uL Red Blood Count 2.94 M/uL Mean Corpuscular Volume 92.2 fL Mean Corpuscular Hemoglobin 28.9 pg Mean Corpuscular Hemoglobin Concent 31.4 g/dl Platelet Count 314 K/uL Mean Platelet Volume 8.5 fL Neutrophils (%) (Auto) 57.9 % Lymphocytes (%) (Auto) 21.7 % Monocytes (%) (Auto) 10.4 % Eosinophils (%) (Auto) 8.6 % Basophils (%) (Auto) 1.2 % Neutrophils # (Auto) 3.77 K/uL Lymphocytes # (Auto) 1.41 K/uL Monocytes # (Auto) 0.68 K/uL Eosinophils # (Auto) 0.56 K/uL Basophils # (Auto) 0.08 K/uL RDW Standard Deviation 50.4 fL RDW Coefficient of Variation 15.0 % Immature Granulocyte % (Auto) 0.2 % Immature Granulocyte # (Auto) 0.01 K/uL Red Blood Cell Morphology Unremarkable Prothrombin Time 15.5 SECONDS 16.1 SECONDS Prothromb Time International Ratio 1.4 1.5 Sodium Level 133 mmol/L 133 mmol/L Potassium Level 4.1 mmol/L 4.0 mmol/L Chloride Level 99 mmol/L 99 mmol/L Carbon Dioxide Level 30 mmol/L 29 mmol/L Anion Gap 4.0 mmol/L 5.0 mmol/L Blood Urea Nitrogen 18 mg/dl 18 mg/dl Creatinine 1.00 mg/dl 1.00 mg/dl Est Creatinine Clear Calc Drug Dose 49.7 ml/min 49.7 ml/min Estimated GFR () 66.6 66.6 Estimated GFR (Non- 57.4 57.4 BUN/Creatinine Ratio 18.2 18.2 Random Glucose 90 mg/dl 91 mg/dl Calcium Level 8.9 mg/dl 8.6 mg/dl Transferrin % Saturation % 17 % Iron Level 26 mcg/dl Total Iron Binding Capacity 129 mcg/dl Transferrin 111 mg/dl Ferritin 322.0 ng/ml Vitamin B12 Level 1230 pg/mL Folate 17.15 ng/mL Assessment & Plan ANEMIA Hbg was btw 9 to 11 on recent admission Rectal exam heme negative per ER provider S/P 2 units PRBC during this admission hgb stable at around 8.5-9 no signs of active bleeding -- coumadin has been resumed monitor Hg LEFT HIP PAIN secondary to AVN left hip Recent septic arthritis L hip s/p dry tap, has been on ceftriaxone IV via Picc line CT of hip showed advanced degenerative change/deformity of the left femoral head is similar to prior studies with near complete loss of the joint space. Joint effusion and bursal fluid around the left hip is unchanged from -- continue pain management -- continue PT/OT RECENT MSSA BACTEREMIA In setting of left hip septic arthritis; echo negative for vegetation on recent admission -- per ID recommendations: will need Ceftriaxone IV for 6 weeks from first negative culture, tentative stop date 11/09. Will need weekly cbc, cmp, esr while on abx. -- afebrile and no leukocytosis Stable HYPONATREMIA Na is 133- stable Nephrology consulted, was given IV fluids Na stable around 133 -- repeat Na level in 3-5 days HISTORY OF ATRIAL FIBRILLATION Currently in sinus tachycardia continue Diltiazem and coumadin INR 1.5 -- coumadin 4mg po at 4pm today -- check INR daily and titrate coumadin accordingly usually on coumadin 4mg daily except mon and fri 2mg HYPOMAGNESEMIA resolved CKD STAGE III Creatine on admission 1.4 Creatine 1.1 -- resolved -- ff up with [facility] Dr. Heredia in 1-2 weeks LOWER LEG EDEMA - left more than the right - Doppler US: no dvt - elevate legs monitor closely CODE STATUS FULL CODE Disposition -- discharge to [facility] Continue physical therapy will need Ceftriaxone IV for 6 weeks from first negative culture, tentative stop date 11/09. Will need weekly cbc, cmp, esr while on abx. Follow up with Infectious disease in 1-2 weeks Follow up with Ortho once completed abx Consultants: Nephrology Current Inpatient Medications: Current Inpatient Medications Medications (Trade) Dose Ordered Sig/Viviane Route Start Time Stop Time Status Last Admin Dose Admin Acetaminophen (Tylenol Tab) 650 mg Q4H PRN PO 10/12/16 21:15 11/11/16 21:14 10/17/16 16:16 650 MG Nitroglycerin (Nitrostat Tab) 0.4 mg UD PRN SL 10/12/16 21:15 11/11/16 21:14 Hydromorphone HCl (Dilaudid Inj) 0.5 mg Q6H PRN IV 10/12/16 21:15 10/26/16 21:14 Ondansetron HCl (Zofran Inj) 4 mg Q6H PRN IV 10/12/16 21:15 11/11/16 21:14 10/13/16 04:06 4 MG Tramadol HCl (Ultram Tab) not relieved by tylenol @ Q6H PRN PO 10/12/16 21:15 11/11/16 21:14 10/18/16 07:47 50 MG Diltiazem HCl (Cardizem Cd Cap) 180 mg QAM PO 10/13/16 09:00 11/12/16 08:59 10/18/16 07:45 180 MG Gabapentin (Neurontin Cap) 200 mg BID@0900,1400 PO 10/13/16 09:00 11/12/16 08:59 10/18/16 07:45 200 MG Gabapentin (Neurontin Cap) 300 mg HS PO 10/13/16 21:00 11/12/16 20:59 10/17/16 20:48 300 MG Hydromorphone HCl (Dilaudid Tab) 2 mg Q6H PRN PO 10/12/16 21:15 10/26/16 21:14 10/18/16 09:20 2 MG Multivitamins/ Minerals (Multivitamin W/ Minerals Tab) 1 tab DAILY PO 10/13/16 09:00 11/12/16 08:59 10/18/16 07:45 1 TAB Nortriptyline HCl (Pamelor Cap) 25 mg HS PO 10/13/16 21:00 11/12/16 20:59 10/17/16 20:48 25 MG Travoprost (Travatan Z) 1 drops HS OPB 10/13/16 21:00 11/12/16 20:59 10/17/16 20:48 1 DROPS Miscellaneous Information (Pharmacy Consult) 1 UD PRN N/A 10/13/16 09:00 11/12/16 08:59 Ceftriaxone Sodium 2000 mg/ Dextrose 70 ml @ 140 mls/hr DAILY@2300 IV 10/12/16 23:00 11/23/16 22:59 10/17/16 23:29 140 MLS/HR Heparin Sodium (Porcine) (Heparin 10 Unit/ ml 5 ml Flush) 5 ml PRN PRN FLUSH 10/13/16 02:00 11/12/16 01:59 10/18/16 10:19 5 ML Senna/Docusate Sodium (Senokot S Tab) 1 tab QAM PRN PO 10/13/16 14:30 11/12/16 14:29 10/16/16 08:13 1 TAB Magnesium Oxide (Mag-Ox Tab) 400 mg BID PO 10/16/16 09:00 11/15/16 08:59 10/18/16 07:45 400 MG Warfarin Sodium (Coumadin Tab) 4 mg DAILY@16 PO 10/17/16 16:00 11/16/16 15:59 10/17/16 16:32 4 MG Miscellaneous Information (Nursing Decision Medication Order) 1 UD N/A 10/18/16 13:00 11/17/16 12:59 UNV
[2016-10-18] MEDS ORDERED: FRRS300 PO (13:19)
[2016-10-18] MEDS ORDERED: CETI10TA84 PO (13:19)
--- NOTE | 2016-10-18 13:26 | Discharge Instructions ---
Discharge Instructions Date of Service Oct 18, 2016. Admission Reason for Admission: Hyponatremia Discharge Discharge Diagnosis / Problem: SYMPTOMATIC ANEMIA, LEFT HIP PAIN Discharge Goals Goal(s): Diagnostic testing, Therapeutic intervention Activity Recommendations Activity Level: Assistance Required Therapies: Physical Therapy, Occupational Therapy . Additional Information Patient informed of condition: Yes Advance Directives: No (UNKNOWN) DNR: No (PATIENT IS FULL CODE) Level of Care: Skilled Communicable Disease: No Prognosis: Stable Instructions / Follow-Up Instructions / Follow-Up REPEAT INR TOMORROW THEN DAILY AND TITRATE COUMADIN ACCORDINGLY. REPEAT CBC, SODIUM LEVEL IN 3- 5DAYS. PLEASE REFER TO ACCOMPANYING HOSPITAL DISCHARGE SUMMARY FOR FURTHER DETAILS. FOLLOW UP WITH PRIMARY CARE PHYSICIAN DR. ASCENCIO ON SUNDAY OCTOBER 23, 2016 AT 2:45 PM. FOLLOW UP WITH INFECTIOUS DISEASE, DISASTER DIRECTOR IN 1-2 WEEKS. Current Hospital Diet Patient's current hospital diet: AHA Diet (Heart Healthy) Discharge Diet Recommended Diet: AHA Diet (Heart Healthy) Procedures Procedures Performed: PRBC TRANSFUSION, CT HIP, LOWER EXTREMITY ULTRASOUND Pending Studies Studies pending at discharge: yes List of pending studies: REPEAT INR TOMORROW THEN DAILY AND TITRATE COUMADIN ACCORDINGLY. REPEAT CBC, SODIUM LEVEL IN 3- 5DAYS. PLEASE REFER TO ACCOMPANYING HOSPITAL DISCHARGE SUMMARY FOR FURTHER DETAILS. Physician Orders On Transfer Special Precautions: REPEAT INR TOMORROW THEN DAILY AND TITRATE COUMADIN ACCORDINGLY. REPEAT CBC, SODIUM LEVEL IN 3- 5DAYS. PLEASE REFER TO ACCOMPANYING HOSPITAL DISCHARGE SUMMARY FOR FURTHER DETAILS. FOLLOW UP WITH PRIMARY CARE PHYSICIAN DR. ASCENCIO ON SUNDAY OCTOBER 23, 2016 AT 2:45 PM. FOLLOW UP WITH INFECTIOUS DISEASE, DISASTER DIRECTOR IN 1-2 WEEKS. Medical Emergencies . Who to Call and When: Medical Emergencies: If at any time you feel your situation is an emergency, please call 911 immediately. . Non-Emergent Contact Non-Emergency issues call your: Primary Care Provider Call Non-Emergent contact if: you have a fever, your pain is not controlled, your pain is worsening, you have any medication questions . Past History Medical & Surgical History: (1) Hypertension (2) Chronic low back pain (3) Osteoarthritis (4) Lumbar disc disease (5) Dyslipidemia (6) Atrial fibrillation (7) Anemia (8) Hyponatremia (9) CKD (chronic kidney disease), stage III (10) AVN (avascular necrosis of bone) (11) Dehydration (12) H/o septic arthritis left hip (13) Hypomagnesemia (14) Anemia (15) Tachycardia (16) Hyponatremia (17) S/P inguinal hernia repair (18) S/P epidural steroid injection . "Provider Documentation" section prepared by Velasquez Simms. . Core Measure Problem Core Measures: None
[2016-10-18] MEDS ORDERED: MICONAZOLE NITRATE POWDER 43 GM EXT PRN (13:30)
--- NOTE | 2016-10-18 13:38 | Discharge Summary ---
Discharge Summary Date of Service Oct 18, 2016. Discharge Summary Admission Date: Oct 12, 2016 at 20:17 Discharge Date: Oct 18, 2016 Discharge Disposition: [facility] facility Principal Diagnosis: ANEMIA, IRON DEFICIENCY; LEFT HIP PAIN Secondary Diagnoses/Problems: Please refer to hospital course below. Procedures: 2 units PRBC transfusion, CHEST ONE VIEW PORTABLE CLINICAL HISTORY: 70 years-old Female presenting with Sepsis. TECHNIQUE: Portable upright AP view of the chest was obtained. COMPARISON: 10/02/2016. FINDINGS: Right upper extremity PICC terminates in the superior vena cava. Atherosclerosis of the aortic arch. Cardiac silhouette normal. Elevation of the right hemidiaphragm, unchanged. Minimal bandlike opacity at the lingula is new from prior. No large effusion or pneumothorax. Degenerative changes of the glenohumeral joints. Scoliosis and degenerative change of the spine. Upper abdomen normal. IMPRESSION: 1. Minimal opacity in the lingula, possibly atelectasis. CT SCAN OF THE LEFT HIP WITHOUT IV CONTRAST CLINICAL HISTORY: Left leg pain. COMPARISON STUDY: CT scan of the left dated 10/04/2016. Pelvic CT dated 09/26/2016 TECHNIQUE: CT scan of the left hip is performed from the left bony pelvis to the midshaft of the left femur. Images are reviewed in the axial, sagittal, and coronal planes. IV contrast was not administered for this examination. A dose lowering technique was utilized adhering to the principles of ALARA. CT DOSE: 682.21 mGy.cm FINDINGS: The skeletal structures are osteopenic. No acute fracture is identified. Subacute/nonunited left pubic ring fractures are similar to previous. Advanced degenerative change and deformity in the left hip is unchanged from 10/04/2016. There is near complete loss of the joint space with bony sclerosis and subchondral cyst formation. A component of avascular necrosis is not excluded. A left hip joint is unchanged from previous, and bursal fluid around the left hip as well as granulation tissue are similar to previous. Soft tissue edema in the left lateral thigh is unchanged. No organized fluid collection is seen. The partially imaged pelvic viscera is grossly unremarkable noting calcified uterine fibroids. Postoperative change is seen in the inguinal region. There is advanced diverticulosis of the left colon. There is no left inguinal lymphadenopathy. Atherosclerotic calcification is seen in the left femoral artery. IMPRESSION: 1. No significant change from the 10/04/2016 examination. 2. No acute fracture is seen. Subacute/nonunited left pubic ring fractures are similar to previous. 3. Advanced degenerative change/deformity of the left femoral head is similar to prior studies with near complete loss of the joint space. 4. Joint effusion and bursal fluid around the left hip is unchanged from 10/04/2016. Consultations: Nephrology Dr. Heredia Pending Studies/Follow-Up: REPEAT INR TOMORROW THEN DAILY AND TITRATE COUMADIN ACCORDINGLY. REPEAT CBC, SODIUM LEVEL IN 3- 5DAYS. PLEASE REFER TO HOSPITAL COURSE BELOW FOR FURTHER DETAILS. FOLLOW UP WITH PRIMARY CARE PHYSICIAN DR. ASCENCIO ON SUNDAY OCTOBER 23, 2016 AT 2:45 PM. FOLLOW UP WITH INFECTIOUS DISEASE, RIP TAILER IN 1-2 WEEKS. Medication Reconciliation New Medications: Cetirizine (Zyrtec) 10 Mg Tab 10 MG PO DAILY PRN for pruritus/rash, #10 TAB 1 Refill Ferrous Sulfate (Ferrous Sulfate) 325 Mg Tab 1 TAB PO BID for 30 Days, #30 TABS 1 Refill Continued Medications: Acetaminophen Tab (Tylenol) 325 Mg Tab 650 MG PO Q4 PRN for Fever, TAB Bisacodyl (Dulcolax) 10 Mg Sup 1 SUPP [place] DAILY PRN for Constipation, SUP Calcium-Magnesium W/ Vitamin D (Citracal Calcium+D Slow R) 1 Tab Tab 1200 MG PO DAILY Ceftriaxone Sod (Ceftriaxone Sodium) 2 Gm Inj 2 GM IV DAILY for 35 Days, #35 EA 0 Refills Cont with last dose on 11/02/16 Chlorpheniramine-Dm (Coricidin Hbp Cough & Col) 1 Tab Tab 1 TAB PO Q6H PRN for Nasal Congestion Diltiazem HCl (Diltiazem HCl ER) 180 Mg Capcr 180 MG PO QAM for 30 Days, #30 CAP Famotidine (Pepcid) 20 Mg Tab 20 MG PO DIRECTED PRN for Indigestion, TAB Gabapentin (Neurontin) 300 Mg Cap 300 MG PO HS, CAP Gabapentin (Neurontin) 100 Mg Cap 200 MG PO BID, CAP morning and afternoon Hydromorphone HCl (Hydromorphone HCl) 2 Mg Tab 2 MG PO Q6H PRN for severe pain for 7 Days, #28 TAB Multiple Vitamins W/ Minerals (Centrum Silver Adult 50+) 1 Tab Tab 1 TAB PO DAILY Nortriptyline HCl (Nortriptyline HCl) 25 Mg Cap 25 MG PO HS for 30 Days, #30 CAP Sodium Phosphate/Biphosphate (Fleet Enema) Tayler 1 EA [place] DAILY PRN for Constipation, BTL Tramadol (Ultram) 50 Mg Tab 50 MG PO Q6 PRN for Pain, TAB Travoprost (Travatan Z) 0.004 % Yonathan 1 DROPS OPB HS, #1 BTL 5 Refills Warfarin Sod (Jantoven) 2 Mg Tab 2 MG PO DIRECTED, TAB TAKE 2MG EVERY SATURDAY AND SATURDAY Warfarin Sod (Jantoven) 4 Mg Tab 4 MG PO DIRECTED, TAB TAKE 4MG TABLET EVERY SATURDAY, SATURDAY, SATURDAY, SATURDAY, SATURDAY Admission Information HPI (per Admitting provider): This is a 70 year old female with PMH listed below who presents to the ED from [facility] for left hip pain. Patient was recently admitted to [facility] from September 27-2016 for MSSA bacteremia in setting of left hip septic arthritis s/ p dry tap, zee-sensitive Klebsiella UTI, new onset Afib with RVR for which she was placed on diltiazem and Coumadin, hypoxia due to diastolic heart failure exacerbation, RASHEL. Echo during hospitalization showed no vegetation. She was discharged on 6 week course of ceftriaxone via PICC line. Has AVN left hip. Injection or JOSEFA could not be done until infection clears. Patient now presents due to worsening left hip pain. She was able to bear weight (with pain) before, but today could not tolerate bearing weight on the hip at all due to severe pain. No radiation of pain, numbness, or weakness. Has swelling of LLE. Pt reports low grade fevers (Tmax 100 per patient) and chills for past week. Has been dizzy at times. Reports intermittent nausea and poor intake of food. On 1500 cc fluid restriction. Has chronic dry cough and postnasal drip attributed to allergies. She denies chest pain, SOB, abdominal pain, vomiting, diarrhea, UTI symptoms, GI bleeding or any other bleeding. Physical Exam (per Admitting): General Appearance: WD/WN, no apparent distress, + pertinent finding ( daughter at bedside) Head: normocephalic, atraumatic Eyes: normal inspection, sclerae normal ENT: hearing grossly normal, pharynx normal Neck: supple, trachea midline Respiratory/Chest: lungs clear, normal breath sounds, no respiratory distress, no accessory muscle use Cardiovascular: no murmur, + tachycardia (rate 110's, regular rhythm, appears to be sinus on monitor) Abdomen/GI: normal bowel sounds, non tender, soft Extremities/Musculoskelatal: no calf tenderness, + pedal edema (LLE 2+ pretibial and pedal edema. RLE no edema. ), + pertinent finding (left hip tender to palpation laterally and painful on ROM. left knee and ankle nontender without pain on ROM. ) Neurologic/Psych: alert, oriented x 3, + pertinent finding (anxious) Skin: normal color, warm/dry Hospital Course ANEMIA, IRON DEFICIENCY Hbg was btw 9 to 11 on recent admission Rectal exam heme negative per ER provider S/P 2 units PRBC during this admission hgb stable at around 8.5-9 Iron level 25 no signs of active bleeding -- coumadin has been resumed Iron supplement started monitor Hg LEFT HIP PAIN secondary to Recent septic arthritis L hip s/p dry tap, has been on ceftriaxone IV via Picc line CT of hip showed advanced degenerative change/deformity of the left femoral head is similar to prior studies with near complete loss of the joint space. Joint effusion and bursal fluid around the left hip is unchanged from -- continue pain management -- continue PT/OT RECENT MSSA BACTEREMIA In setting of left hip septic arthritis; echo negative for vegetation on recent admission -- per ID recommendations: will need Ceftriaxone IV for 6 weeks from first negative culture, tentative stop date 11/09. Will need weekly cbc, cmp, esr while on abx. -- afebrile and no leukocytosis Stable -- ff up with Ortho HYPONATREMIA Na is 133- stable Nephrology consulted, was given IV fluids Na stable around 133 -- repeat Na level in 3-5 days HISTORY OF ATRIAL FIBRILLATION Currently in sinus tachycardia continue Diltiazem and coumadin INR 1.5 -- coumadin 4mg po at 4pm today -- check INR daily and titrate coumadin accordingly usually on coumadin 4mg daily except mon and fri 2mg HYPOMAGNESEMIA resolved CKD STAGE III Creatine on admission 1.4 Creatine 1.1 -- resolved -- ff up with [facility] Dr. Heredia in 1-2 weeks LOWER LEG EDEMA - left more than the right - Doppler US: no dvt - elevate legs monitor closely CODE STATUS FULL CODE Disposition -- discharge to [facility] physical therapy will need Ceftriaxone IV for 6 weeks from first negative culture, tentative stop date 11/09. Will need weekly cbc, cmp, esr while on abx. Follow up with Infectious disease in 1-2 weeks Follow up with Ortho once completed abx Total time spent on discharge = 40 minutes This includes examination of the patient, discharge planning, medication reconciliation, and communication with other providers. Discharge Instructions Discharge Instructions Date of Service Oct 18, 2016. Admission Reason for Admission: Hyponatremia Discharge Discharge Diagnosis / Problem: SYMPTOMATIC ANEMIA, LEFT HIP PAIN Discharge Goals Goal(s): Diagnostic testing, Therapeutic intervention Activity Recommendations Activity Level: Assistance Required Therapies: Physical Therapy, Occupational Therapy . Additional Information Patient informed of condition: Yes Advance Directives: No (UNKNOWN) DNR: No (PATIENT IS FULL CODE) Level of Care: Skilled Communicable Disease: No Prognosis: Stable Instructions / Follow-Up Instructions / Follow-Up REPEAT INR TOMORROW THEN DAILY AND TITRATE COUMADIN ACCORDINGLY. REPEAT CBC, SODIUM LEVEL IN 3- 5DAYS. PLEASE REFER TO ACCOMPANYING HOSPITAL DISCHARGE SUMMARY FOR FURTHER DETAILS. FOLLOW UP WITH PRIMARY CARE PHYSICIAN DR. ASCENCIO ON SUNDAY OCTOBER 23, 2016 AT 2:45 PM. FOLLOW UP WITH INFECTIOUS DISEASE, RIP TAILER IN 1-2 WEEKS. Current Hospital Diet Patient's current hospital diet: AHA Diet (Heart Healthy) Discharge Diet Recommended Diet: AHA Diet (Heart Healthy) Procedures Procedures Performed: PRBC TRANSFUSION, CT HIP, LOWER EXTREMITY ULTRASOUND Pending Studies Studies pending at discharge: yes List of pending studies: REPEAT INR TOMORROW THEN DAILY AND TITRATE COUMADIN ACCORDINGLY. REPEAT CBC, SODIUM LEVEL IN 3- 5DAYS. PLEASE REFER TO ACCOMPANYING HOSPITAL DISCHARGE SUMMARY FOR FURTHER DETAILS. Physician Orders On Transfer Special Precautions: REPEAT INR TOMORROW THEN DAILY AND TITRATE COUMADIN ACCORDINGLY. REPEAT CBC, SODIUM LEVEL IN 3- 5DAYS. PLEASE REFER TO ACCOMPANYING HOSPITAL DISCHARGE SUMMARY FOR FURTHER DETAILS. FOLLOW UP WITH PRIMARY CARE PHYSICIAN DR. ASCENCIO ON SUNDAY OCTOBER 23, 2016 AT 2:45 PM. FOLLOW UP WITH INFECTIOUS DISEASE, RIP TAILER IN 1-2 WEEKS.
[2016-10-18] MEDS: ACETAMINOPHEN 325 MG TAB PO PRN (15:55)
[2016-10-18] MEDS: WARFARIN SOD 4 MG TAB PO SCH (16:36)
[2016-11-26] MEDS ORDERED: HYDR2TAB48 PO (21:43)
[2016-11-26] MEDS ORDERED: TRAM-10 PO (21:43)
[2016-11-28] MEDS ORDERED: DAPTOMYCIN IV ×2 (09:46→09:48)
== END 2016-10-18 18:50 | DRG 811 ==
LOC: EDBD 15:36 → C.EDB 15:37 → C.2T 20:17 → ENRESERV 20:32 → C.MS2W 10-16 12:01
PROVIDERS: ADMIT Internal Medicine; ATTEND Internal Medicine
DX: D50.9 Iron deficiency anemia, unspecified (principal); N17.0 Acute kidney failure with tubular necrosis; E87.1 Hypo-osmolality and hyponatremia; M87.852 Other osteonecrosis, left femur; R60.0 Localized edema; B95.61 Methicillin susceptible Staphylococcus aureus infection as the cause of diseases classified elsewhere; I12.9 Hypertensive chronic kidney disease with stage 1 through stage 4 chronic kidney disease, or unspecified chronic kidney disease; E83.42 Hypomagnesemia; N18.3 Chronic kidney disease, stage 3 (moderate); I48.0 Paroxysmal atrial fibrillation; Z79.01 Long term (current) use of anticoagulants; Z79.899 Other long term (current) drug therapy; Z87.891 Personal history of nicotine dependence

== ENCOUNTER → 2016-11-09 | Outpatient (CLI) | payer OTHER ==
[~2016-11-09] MED LIST changes: +ACET-1256 PO; +ACET325T96 PO; +BISA-16 PO; +BISA10SU3 PR; +CETI10TA84 PO; +CHLOTAB10 PO; +CLOTCRE TOP; -CMD4 PO; +DAPTOMYCIN IV; +DILT-113 PO; +DILT180C58 PO; -DIME50TA49 PO; -DLD2 PO; +DOCU100C31 PO; +FERR1TAB13 PO; +FRRS300 PO; +HYDR-3124 PO; +HYDR2TAB3 PO; +HYDR2TAB48 PO; +HYDR4TAB2 PO; +LATA0.009 OP; +LORA-741 PO; +MOML PO; +NF656 TOP; +NORT25CA PO; +ONDA4TAB10 SL; +POLY335019 PO; +SENN-61 PO; +SENN-65 PO; +SODIENE PR; +WARF2TAB PO; +WARF2TAB8 PO; +WARF4TAB8 PO; +WARF5TAB7 PO
[2016-11-09 11:58] LABS: ALT/SGPT 13 U/L (12-78); BLOOD UREA NITROGEN 16 mg/dl (7-18); BUN/CREATININE RATIO 16.4 (10-20); CALCIUM 9.1 mg/dl (8.5-10.1); CARBON DIOXIDE 29 mmol/L (21-32); CHLORIDE 99 mmol/L (98-107); CREATININE 0.95 mg/dl (0.60-1.20); GLUCOSE 79 mg/dl (70-99); POTASSIUM 3.4 mmol/L (3.5-5.1); SODIUM 135 mmol/L (136-145)
[2016-11-09 12:01] LABS: ALB/GLOB RATIO 0.6 (0.9-2); ALKALINE PHOSPHATASE 106 U/L (45-117); AST/SGOT 15 U/L (15-37)
== END | disposition home or self-care (01) ==
LOC: C.LABSPEC 11:15
PROVIDERS: ATTEND Family Medicine
DX: Z01.89 Encounter for other specified special examinations (principal)

== ENCOUNTER → 2016-11-16 | Outpatient (CLI) | payer OTHER ==
[~2016-11-16] MED LIST changes: +ATV5 PO; +IPRASOL4 INH; +LSX20 PO; +MGNO400 PO
[2016-11-16 12:18] LABS: INR 1.9 (0.9-1.1); PROTHROMBIN TIME (PATIENT) 20.4 SECONDS (9.0-12.0)
--- NOTE | 2016-11-21 14:22 | CODING QUERY NO DIAGNOSIS ---
Valid Physician Order Needed A valid physician order must be submitted in order to properly bill for the service(s) provided, including date of service(s), valid diagnosis, and physician signature. If these tests are done on a recurring basis the original physician order must be submitted in order to code and bill for the service(s) provided. Please fax us the original, signed physician order so that we may expedite billing to [phone] DOS 11/16/2016 * PROTHROMBIN TIME Thank you Atul [facility] Information Management
== END | disposition home or self-care (01) ==
LOC: C.LABSPEC 11:51
PROVIDERS: ATTEND Family Medicine
DX: Z01.89 Encounter for other specified special examinations (principal)

== ENCOUNTER 2016-11-20 21:33 | Inpatient (IN) | payer OTHER ==
[~2016-11-20] VITALS: Ht 160 cm; Wt 68.0 kg
[~2016-11-20 21:33] MED LIST changes: -ACET-1256 PO; -ATV5 PO; -BISA-16 PO; -CLOTCRE TOP; -DAPTOMYCIN IV; -DILT-113 PO; -DILT180C58 PO; +DLD2 PO; -DOCU100C31 PO; -FERR1TAB13 PO; -HYDR-3124 PO; -HYDR2TAB3 PO; -HYDR2TAB48 PO; -HYDR4TAB2 PO; -IPRASOL4 INH; -LATA0.009 OP; -LORA-741 PO; -LSX20 PO; -MGNO400 PO; -MOML PO; -NF656 TOP; -NORT25CA PO; -ONDA4TAB10 SL; -POLY335019 PO; -SENN-61 PO; -SENN-65 PO; -WARF2TAB PO; -WARF5TAB7 PO
[2016-11-20] MEDS ORDERED: SODIUM CHLORIDE 0.9% 1000ML 1,000 ML IV STA (22:03)
[2016-11-20] MEDS ORDERED: HYDROmorphone INJ 0.5 MG/0.5 ML SYR IV STA (22:03)
[2016-11-20] MEDS ORDERED: ACETAMINOPHEN 500 MG TAB PO STA (22:03)
[2016-11-20] MEDS ORDERED: TRAMADOL HCL 50 MG TAB PO STA (22:03)
[2016-11-20] MEDS ORDERED: HYDR-3124 PO (22:14)
[2016-11-20] MEDS ORDERED: OPTIRAY 320 IV PRN (22:15)
[2016-11-20] MEDS ORDERED: WARF4TAB8 PO (22:18)
[2016-11-20] MEDS ORDERED: DILT-113 PO (22:21)
[2016-11-20] MEDS ORDERED: FERR1TAB13 PO (22:22)
[2016-11-20] MEDS ORDERED: NORT25CA PO (22:24)
[2016-11-20] MEDS ORDERED: SENN-65 PO (22:26)
[2016-11-20] MEDS ORDERED: HYDR2TAB48 PO (22:27)
--- NOTE | 2016-11-20 22:28 | EMERGENCY ROOM VISIT NOTE ---
History Report prepared by Joseph: Marnie Miranda Under the Supervision of: Dr. Kael Garrison M.D. First contact with patient: 21:41 Chief Complaint: HIP PAIN Stated Complaint: SEVERE LEFT HIP PAIN/CHILLS History of Present Illness The patient is a 70 year old female with a past medical history of septic arthritis of the left hip who presents to the ED with a cc of worsening hip pain beginning two days ago. She notes she stopped antibiotics 11 days ago. She currently rates her pain as an 8/10 in severity. She notes the pain is worse with walking. She notes she has used Tramadol and Tylenol with no relief. Positive fevers and Coumadin use. Negative rhinorrhea, cough, congestion, nausea , vomiting, rashes, calf pain, abdominal pain, and chest pain. Source of History: patient Onset: two days ago Position: other (left hip) Symptom Intensity: 8/10 Quality: other ("previous episode of septic hip") Timing: worsening Modifying Factors (Worsening): other (walking) Associated Symptoms: + fevers, No cough, No chest pain, No nausea, No vomiting, No abdominal pain, No rash Note: Negative rhinorrhea, congestion, and calf pain. Review of Systems See HPI for pertinent positives and negatives. A total of ten systems were reviewed and were otherwise negative. Past Medical & Surgical Medical Problems: (1) Anemia (2) Atrial fibrillation (3) AVN (avascular necrosis of bone) (4) Chronic low back pain (5) CKD (chronic kidney disease), stage III (6) Dyslipidemia (7) H/o septic arthritis left hip (8) Hypertension (9) Hyponatremia (10) Lumbar disc disease (11) Osteoarthritis Surgical Problems: (1) S/P epidural steroid injection (2) S/P inguinal hernia repair Family History FH: esophageal cancer FATHER Social History Smoking Status: Former Smoker Drug Use: none Marital Status: single Housing Status: lives with family Occupation Status: retired Current/Historical Medications Scheduled Calcium-Magnesium W/ Vitamin D (Citracal Calcium+D Slow R), 1,200 MG PO DAILY Diltiazem Hcl Ext Rel (Tiazac), 180 MG PO QAM Famotidine (Pepcid), 20 MG PO QAM Ferrous Sulfate (Kp Ferrous Sulfate), 325 MG PO BID Gabapentin (Neurontin), 300 MG PO HS Gabapentin (Neurontin), 200 MG PO BID Hydroxyzine Hcl (Atarax), 25 MG PO Q6H Multiple Vitamins W/ Minerals (Centrum Silver Adult 50+), 1 TAB PO DAILY Nortriptyline (Pamelor), 25 MG PO HS Senna/Docusate Sod (Senokot S), 1 TAB PO DAILY Travoprost (Travatan Z), 1 DROP OPB HS Warfarin Sod (Jantoven), 2 MG PO WK Warfarin Sod (Jantoven), 4 MG PO [id number] Scheduled PRN Acetaminophen Tab (Tylenol), 650 MG PO Q4 PRN for Fever Bisacodyl (Dulcolax), 10 MG AL DAILY PRN for Constipation Hydromorphone Hcl (Dilaudid), 2 MG PO Q6H PRN for SEVERE PAIN Sodium Phosphate/Biphosphate (Fleet Enema), 1 EA AL DAILY PRN for Constipation Tramadol (Ultram), 50 MG PO Q6 PRN for Pain Allergies Coded Allergies: Ceftriaxone (Verified Allergy, Severe, RASH, 11/21/16) Codeine (Verified Allergy, Severe, GI SYMPTOMS, 11/21/16) Latex1 -Allergic Contact Dermititis (Verified Allergy, Severe, RESPIRATORY DISTRESS, 11/21/16) Vancomycin (Verified Allergy, Severe, red jez syndrome, 11/21/16) pt reports the only way she was able to tolerate vanco was if it was given over a 4 hour period iv and was given hydroxyzine 25mg every 6 hours around the clock for 24 hours Brimonidine (Verified Allergy, Intermediate, OTHER-SEE COMMENT, 11/21/16) Toxic conjunctivitis Nickel (Verified Allergy, Unknown, RASH, 11/21/16) Oxycodone (Verified Allergy, Unknown, GI SYMPTOMS, 11/21/16) PT STATES "CAN TAKE TYENOL W/CODIENE WITH OUT ANY DIFFICULTY". Diphenhydramine (Verified Adverse Reaction, Severe, DELIRIUM, 11/21/16) as per patient opposite effect Physical Exam Vital Signs Date Time Temp Pulse Resp B/P (MAP) Pulse Ox O2 Delivery O2 Flow Rate FiO2 11/21/16 01:45 87 18 170/79 94 Room Air 11/21/16 00:09 96 18 138/67 95 Room Air 11/20/16 23:02 100 19 143/74 94 Room Air 11/20/16 22:29 101 11/20/16 21:37 36.8 105 20 150/70 97 Room Air Physical Exam GENERAL: Awake, alert, uncomfortable appearing, in pain HENT: Normocephalic, atraumatic. EYES: Normal conjunctiva. Sclera non-icteric. NECK: Supple. No nuchal rigidity. FROM. RESPIRATORY: CTAB, no rhonchi, wheezing, crackles CARDIAC: Irregular rate, regular rhythm, no MRG ABDOMEN: Soft, NTND, BS+ MSK: No chest wall TTP, no LE edema, pain to left lower back and hip, mild calor , no erythema, no fluctuance NEURO: GCS 15, CN 2-12 intact, moves all 4s on command SKIN: No rash or jaundice noted. Medical Decision & Procedures ER Provider Diagnostic Interpretation: Radiology results as stated below per my review and radiologist interpretation: CHEST ONE VIEW PORTABLE CLINICAL HISTORY: 70 years-old Female presenting with fever, h/o septic hip. TECHNIQUE: Portable upright AP view of the chest was obtained. COMPARISON: 10/12/2016. FINDINGS: Interval removal of the right upper extremity PICC. Atherosclerosis and tortuosity of the aorta. Cardiac silhouette normal in size. Colonic bowel gas above the level of the diaphragm consistent with the Morgagni hernia better demonstrated on CT of the abdomen and pelvis from 09/26/2016. Interval resolution of left basilar opacity. No new focal infiltrate. No pleural effusion or pneumothorax. Degenerative changes of the thoracic spine. Scoliotic curvature of the lower thoracic spine. Upper abdomen normal. IMPRESSION: 1. No acute cardiopulmonary disease. Resolution of left basilar atelectasis. Electronically signed by: Zaki Rubio M.D. 11/20/2016 10:50 PM Dictated Date/Time: 11/20/2016 10:[address] ABDOMEN & PELVIS: Comparison: 09/26/2016 Impression: There is fracture to the neck of the left femur with volume loss and sclerosis of the femoral head, grossly unchanged. There is additional subacute fractures of the inferior and superior left pubic ramus with sclerosis of the left pelvis , also grossly unchanged. There is a large joint effusion with peripheral enhancement and marked adjacent soft tissue thickening, which appears worse as compared to the prior. Findings are concerning for osteomyelitis with septic arthritis. There are also small peripheral enhancing fluid collections that appear not to communicate with the joint, suggesting tiny abscess. These appear new as compared to the prior. Additional findings: Lower thorax demonstrates right anterior diaphragmatic hernia containing bowel. Liver, gallbladder, spleen, pancreas, and adrenal glands are unremarkable. Probable simple cysts within both kidneys. No hydronephrosis. Uterus and adnexa are unremarkable. Appendix is within normal limits. Noninfalmed colonic diverticulosis. Radiologist: Franko Dixon MD Study ready at 00:08 and initial results transmitted at 00:36. Laboratory Results 11/20/16 22:55 Red Blood Count 2.94, Mean Corpuscular Volume 88.8, Mean Corpuscular Hemoglobin 28.2, Mean Corpuscular Hemoglobin Concent 31.8, Mean Platelet Volume 9.1, Neutrophils (%) (Auto) 79.6, Lymphocytes (%) (Auto) 12.3, Monocytes (%) (Auto) 7.1, Eosinophils (%) (Auto) 0.6, Basophils (%) (Auto) 0.1, Neutrophils # (Auto) 10.72, Lymphocytes # (Auto) 1.66, Monocytes # (Auto) 0.96, Eosinophils # (Auto) 0.08, Basophils # (Auto) 0.02 11/20/16 22:55 Test 11/20/16 22:25 11/20/16 22:55 11/20/16 23:06 11/20/16 23:43 Urine Color DK YELLOW Urine Appearance CLEAR (CLEAR) Urine pH 6.0 (4.5-7.5) Urine Specific Triangle 1.021 (1.000-1.030) Urine Protein 2+ (NEG) Urine Glucose (UA) NEG (NEG) Urine Ketones NEG (NEG) Urine Occult Blood NEG (NEG) Urine Nitrite NEG (NEG) Urine Bilirubin NEG (NEG) Urine Urobilinogen NEG (NEG) Urine Leukocyte Esterase NEG (NEG) Urine WBC (Auto) 1-5 /hpf (0-5) Urine RBC (Auto) 0-4 /hpf (0-4) Urine Hyaline Casts (Auto) 1-5 /lpf (0-5) Urine Epithelial Cells (Auto) 10-20 /lpf (0-5) Urine Bacteria (Auto) NEG (NEG) White Blood Count 13.48 K/uL (4.8-10.8) Red Blood Count 2.94 M/uL (4.2-5.4) Hemoglobin 8.3 g/dL (12.0-16.0) Hematocrit 26.1 % (37-47) Mean Corpuscular Volume 88.8 fL (80-100) Mean Corpuscular Hemoglobin 28.2 pg (25-34) Mean Corpuscular Hemoglobin Concent 31.8 g/dl (32-36) Platelet Count 307 K/uL (130-400) Mean Platelet Volume 9.1 fL (7.4-10.4) Neutrophils (%) (Auto) 79.6 % Lymphocytes (%) (Auto) 12.3 % Monocytes (%) (Auto) 7.1 % Eosinophils (%) (Auto) 0.6 % Basophils (%) (Auto) 0.1 % Neutrophils # (Auto) 10.72 K/uL (1.4-6.5) Lymphocytes # (Auto) 1.66 K/uL (1.2-3.4) Monocytes # (Auto) 0.96 K/uL (0.11-0.59) Eosinophils # (Auto) 0.08 K/uL (0-0.5) Basophils # (Auto) 0.02 K/uL (0-0.2) RDW Standard Deviation 52.0 fL (36.4-46.3) RDW Coefficient of Variation 15.9 % (11.5-14.5) Immature Granulocyte % (Auto) 0.3 % Immature Granulocyte # (Auto) 0.04 K/uL (0.00-0.02) Red Blood Cell Morphology Unremarkable Erythrocyte Sedimentation Rate 31 mm/hr (0-21) Est Creatinine Clear Calc Drug Dose 52.3 ml/min Estimated GFR () 71.7 Estimated GFR (Non- 61.9 BUN/Creatinine Ratio 19.3 (10-20) Lactic Acid Level 0.8 mmol/L (0.4-2.0) Calcium Level 9.5 mg/dl (8.5-10.1) Magnesium Level 1.5 mg/dl (1.8-2.4) C-Reactive Protein 24.70 mg/dl (0-0.29) Bedside Hemoglobin 8.8 g/dl (12.0-16.0) Bedside Hematocrit 26 % (37-47) Bedside Sodium 131 mEq/L (135-144) Bedside Potassium 3.5 mEq/L (3.3-5.0) Bedside Chloride 92 mEq/L (101-112) Bedside Total CO2 27 mEq/l (24-31) Anion Gap 17.0 mmol/L (16-25) Bedside Blood Urea Nitrogen 18 mg/dl (7-18) Bedside Creatinine 1.0 mg/dl (0.6-1.3) Bedside Glucose (other) 96 mg/dl (70-99) Bedside Ionized Calcium (Yusra) 1.25 mmol/l (1.12-1.32) Venous Blood pH 7.46 (7.36-7.41) Venous Blood Partial Pressure CO2 38 mmHg (38.0-50.0) Venous Blood Partial Pressure O2 64 mmHg Venous Blood HCO3 26 mmol/L Venous Blood Oxygen Saturation 90.2 % Venous Blood Base Excess 2.5 mEq/L Laboratory results reviewed by me Medications Administered Medications (Trade) Dose Ordered Sig/Viviane Route Start Time Stop Time Status Last Admin Dose Admin Sodium Chloride 1,000 ml @ 999 mls/hr Q1H1M STAT IV 11/20/16 22:03 11/20/16 23:03 DC 11/20/16 22:58 999 MLS/HR Acetaminophen (Tylenol Tab) 1,000 mg NOW STAT PO 11/20/16 22:03 11/20/16 22:06 DC 11/20/16 22:44 1,000 MG Tramadol HCl (Ultram Tab) 50 mg NOW STAT PO 11/20/16 22:03 11/20/16 22:06 DC 11/20/16 22:45 50 MG Hydromorphone HCl (Dilaudid Inj) 0.5 mg NOW STAT IV 11/20/16 22:03 11/20/16 22:06 DC 11/20/16 22:59 0.5 MG Vancomycin HCl 1250 mg/Sodium Chloride 275 ml @ 125 mls/hr NOW STAT IV 11/20/16 23:44 11/21/16 01:55 DC 11/21/16 00:54 125 MLS/HR Sodium Chloride 1,000 ml @ 999 mls/hr Q1H1M STAT IV 11/21/16 00:10 11/21/16 01:10 DC 11/21/16 00:54 999 MLS/HR Hydroxyzine HCl (Vistaril Tab) 25 mg NOW STAT PO 11/21/16 00:47 11/21/16 00:48 DC 11/21/16 00:54 25 MG ED Course 215: The patient was evaluated in room B3B. A complete history and physical exam was performed. 2331: I reevaluated the patient and she is doing well. 103: I discussed the patient's case with Dr. Chew from [facility]. They report that they will see her in the morning. 0132: Discussed the patient's case with Dr. Cara Smiley. The patient will be evaluated for further treatment and disposition. Medical Decision Differential diagnoses includes septic hip, pneumonia, UTI, URI, DVT, bronchitis. Patient was seen and evaluated the bedside. Patient does have a prior history of a septic hip in the past. Patient is complaining of ferment of left-sided pain. Patient is CT of the abdomen pelvis was completed in addition to blood work was completed. Patient did have a mildly elevated white count in addition to other inflammatory markers. Patient chest x-ray and UA negative. Patient is CT was completed which was concerning for a fluid collection consistent with possible osteomyelitis and septic arthritis. Several small abscesses or fluid- filled pockets concerning for abscesses or near but not confluent with the joint space. Patient was started on vancomycin as well as ciprofloxacin. 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 I spoke with the orthopedist stated that they would see her in the morning. I spoke with the hospitalist who agreed patient would benefit from further workup and admission. Patient was admitted. Medication Reconcilliation Current Medication List: was personally reviewed by me Blood Pressure Screening Patient's blood pressure: Elevated blood pressure The hospitalist will further evaluate the patient blood pressure. Consults Time Called: 100 Consulting Physician: Dr. Chew from [facility] Returned Call: [phone] I discussed the patient's case with Dr. Chew from [facility]. They report that they will see her in the morning. Additional Consults: Time Called: 0111 Consulted Physician: Dr. Cara Smiley Returned Call: [phone] Additional Comments: Discussed the patient's case with Dr. Cara Smiley. The patient will be evaluated for further treatment and disposition. Impression Primary Impression: Fracture of neck of left femur Additional Impressions: Septic arthritis Sepsis Scribe Attestation The scribe's documentation has been prepared under my direction and personally reviewed by me in its entirety. I confirm that the note above accurately reflects all work, treatment, procedures, and medical decision making performed by me. Departure Information Dispostion Being Evaluated By Hospitalist Referrals Jeremiah Alvarado M.D. (PCP) Patient Instructions My [facility] Problem Qualifiers Primary Impression: Fracture of neck of left femur Encounter type: initial encounter Fracture type: closed Qualified Codes: S72.002A - Fracture of unspecified part of neck of left femur, initial encounter for closed fracture Additional Impressions: Septic arthritis Septic arthritis location: hip Septic arthritis organism: due to unspecified organism Laterality: left Qualified Codes: M00.9 - Pyogenic arthritis, unspecified Sepsis Sepsis type: sepsis due to unspecified organism Qualified Codes: A41.9 - Sepsis, unspecified organism
--- NOTE | 2016-11-20 22:51 | DIAGNOSTIC IMAGING REPORT ---
CHEST ONE VIEW PORTABLE CLINICAL HISTORY: 70 years-old Female presenting with fever, h/o septic hip. TECHNIQUE: Portable upright AP view of the chest was obtained. COMPARISON: 10/12/2016. FINDINGS: Interval removal of the right upper extremity PICC. Atherosclerosis and tortuosity of the aorta. Cardiac silhouette normal in size. Colonic bowel gas above the level of the diaphragm consistent with the Morgagni hernia better demonstrated on CT of the abdomen and pelvis from 09/26/2016. Interval resolution of left basilar opacity. No new focal infiltrate. No pleural effusion or pneumothorax. Degenerative changes of the thoracic spine. Scoliotic curvature of the lower thoracic spine. Upper abdomen normal. IMPRESSION: 1. No acute cardiopulmonary disease. Resolution of left basilar atelectasis. Electronically signed by: Zaki Rubio M.D. 11/20/2016 10:50 PM Dictated Date/Time: 11/20/2016 10:47 PM
[2016-11-20 23:20] LABS: ISTAT HEMOGLOBIN 8.8 g/dl (12.0-16.0); ISTAT IONIZED CALCIUM 1.25 mmol/l (1.12-1.32)
[2016-11-20 23:27] LABS: BASO % 0.1 %; BASO ABS # 0.02 K/uL (0-0.2); EOS % 0.6 %; HEMATOCRIT 26.1 % (37-47); IG% 0.3 %; LYMPH % 12.3 %; LYMPH ABS # 1.66 K/uL (1.2-3.4); MEAN CELL VOLUME 88.8 fL (80-100); MEAN CORPUSCULAR HEMOGLOBIN 28.2 pg (25-34); MEAN CORPUSCULAR HGB CONC 31.8 g/dl (32-36); MEAN PLATELET VOLUME 9.1 fL (7.4-10.4); MONO % 7.1 %; NEUT % 79.6 %; PLATELET COUNT 307 K/uL (130-400); RED BLOOD COUNT 2.94 M/uL (4.2-5.4); WHITE BLOOD COUNT 13.48 K/uL (4.8-10.8)
[2016-11-20 23:34] LABS: URINE APPEARANCE CLEAR (CLEAR); URINE BILIRUBIN NEG (NEG); URINE COLOR DK YELLOW; URINE NITRITE NEG (NEG); URINE SPECIFIC GRAVITY 1.021 (1.000-1.030); UROBILINOGEN NEG (NEG); ZZUR CULT IF INDIC CLEAN CATCH NO
[2016-11-20 23:39] LABS: MANUAL MICROSCOPIC REQUIRED? NO; REVIEW REQ? NO
[2016-11-20 23:41] LABS: BUN/CREATININE RATIO 19.3 (10-20); CALCIUM 9.5 mg/dl (8.5-10.1); CREATININE 0.94 mg/dl (0.60-1.20); POTASSIUM 3.5 mmol/L (3.5-5.1)
[2016-11-20] MEDS ORDERED: VANCOMYCIN INJ 1,250 MG in SODIUM CHLORIDE 0.9% 250ML 250 ML IV STA (23:44)
[2016-11-20 23:49] LABS: C-REACTIVE PROTEIN 24.7 mg/dl (0-0.29)
[2016-11-21 00:01] LABS: VEN BLD GAS O2 SATURATION 90.2 %; VEN BLOOD GAS BASE EXCESS 2.5 mEq/L
[2016-11-21] MEDS ORDERED: SODIUM CHLORIDE 0.9% 1000ML 1,000 ML IV STA (00:10)
[2016-11-21 00:12] LABS: COMPLETE YES
[2016-11-21] MEDS ORDERED: hydrOXYzine HCL 25 MG TAB PO STA (00:47)
[2016-11-21] MEDS ORDERED: CIPROFLOXACIN 400MG / 200ML D5W IV STA (00:57)
[2016-11-21 01:51] LABS: MAGNESIUM 1.5 mg/dl (1.8-2.4)
[2016-11-21 02:05] LABS: INR 1.9 (0.9-1.1); PROTHROMBIN TIME (PATIENT) 20.5 SECONDS (9.0-12.0)
[2016-11-21] MEDS ORDERED: POTASSIUM CHLORIDE 10 MEQ TABCR PO STA (02:32)
[2016-11-21] MEDS ORDERED: ONDANSETRON INJ 2 MG/ML 2 ML VIAL IV PRN (02:45)
[2016-11-21] MEDS ORDERED: POLYETHYLENE (MIRALAX) 17 GM PACK PO PRN (02:45)
[2016-11-21] MEDS ORDERED: ACETAMINOPHEN 325 MG TAB PO PRN (02:45)
[2016-11-21] MEDS ORDERED: SOD PHOSPHATE/SOD BIPHOSPHATE ENEMA 132 ML BTL PR PRN (02:45)
[2016-11-21] MEDS ORDERED: KETOROLAC TROMETHAMINE 30 MG/ML VIAL IV STA (02:47)
[2016-11-21 03:10] VITALS: BP 177/79; PULSE 96; TEMP 36.6; O2SAT 95; Ht 160 cm; Wt 68.0 kg
[2016-11-21] MEDS ORDERED: DOCUSATE SODIUM/SENNA 50/8.6MG TAB PO STA (03:12)
[2016-11-21] MEDS ORDERED: DILTIAZEM HCL (TIAzac) 180 MG CAPCR PO STA (03:12)
[2016-11-21] MEDS ORDERED: POLYETHYLENE (MIRALAX) 17 GM PACK PO STA (03:14)
[2016-11-21] MEDS ORDERED: VANCOMYCIN CONSULT ACTIVE PRN (03:30)
[2016-11-21] MEDS: MAGNESIUM SULFATE 1GM / D5W 1 GM in PREMIXED IN D5W 100 ML IV SCH ×2 (03:40→05:19)
[2016-11-21 05:26] LABS: HEMATOCRIT 23.8 % (37-47); MEAN CELL VOLUME 89.8 fL (80-100); MEAN CORPUSCULAR HEMOGLOBIN 28.3 pg (25-34); MEAN CORPUSCULAR HGB CONC 31.5 g/dl (32-36); MEAN PLATELET VOLUME 8.4 fL (7.4-10.4); PLATELET COUNT 247 K/uL (130-400); RED BLOOD COUNT 2.65 M/uL (4.2-5.4); WHITE BLOOD COUNT 11.91 K/uL (4.8-10.8)
[2016-11-21 05:46] LABS: INR 1.9 (0.9-1.1); PROTHROMBIN TIME (PATIENT) 21.2 SECONDS (9.0-12.0)
[2016-11-21 05:54] LABS: BUN/CREATININE RATIO 16.7 (10-20); CREATININE 0.89 mg/dl (0.60-1.20); MAGNESIUM 1.8 mg/dl (1.8-2.4); POTASSIUM 3.6 mmol/L (3.5-5.1)
[2016-11-21 05:55] VITALS: BP 126/70; PULSE 81
[2016-11-21 06:25] LABS: BASO % 0.1 %; BASO ABS # 0.01 K/uL (0-0.2); COMPLETE YES; EOS % 1.3 %; IG% 0.4 %; LYMPH % 14.8 %; LYMPH ABS # 1.76 K/uL (1.2-3.4); MONO % 7.6 %; NEUT % 75.8 %
--- NOTE | 2016-11-21 06:36 | Pharmacy Progress Note ---
Pharmacy Abx Initial Consult Date of Service Nov 21, 2016. Pharmacy Dosing Scope Date of Consult: 11/21/16 Consultation requested by: Dr. Will Pharmacy is consulted to continue Vancomcyin dosing therapy, order appropriate labs and adjust drug dose/frequency. Subjective The patient is a 70 year old female admitted on Nov 21, 2016 at 02:00 with pain in her (L) hip. She has history of a septic hip in the past. Upon evaluation in the ED, CT scan reveals possible osteomyelitis in same hip. Patient had been on antibiotics at home which is noted she stopped [address] Will consulted us to dose Vancomycin going forward. Objective Height (Feet): 5 Height (Inches): 3.00 Weight (Kilograms): 68.000 Vital Signs (Past 12Hrs) Vital Signs Past 12 Hours Date Time Temp Pulse Resp B/P (MAP) Pulse Ox O2 Delivery O2 Flow Rate FiO2 11/21/16 05:55 81 126/70 (88) 11/21/16 03:10 Room Air 11/21/16 03:10 36.6 96 18 177/79 95 Room Air 11/21/16 03:05 88 19 136/69 96 11/21/16 02:14 102 11/21/16 01:45 87 18 170/79 94 Room Air 11/21/16 00:09 96 18 138/67 95 Room Air 11/20/16 23:02 100 19 143/74 94 Room Air 11/20/16 22:29 101 11/20/16 21:37 36.8 105 20 150/70 97 Room Air Lab Results (24Hrs) Laboratory Tests (24 Hours) Test 11/20/16 22:55 11/21/16 05:12 C-Reactive Protein 24.70 mg/dl (0-0.29) H Erythrocyte Sedimentation Rate 31 mm/hr (0-21) H Lactic Acid Level 0.8 mmol/L (0.4-2.0) White Blood Count 11.91 K/uL (4.8-10.8) H Red Blood Count 2.65 M/uL (4.2-5.4) L Hemoglobin 7.5 g/dL (12.0-16.0) L Hematocrit 23.8 % (37-47) L Mean Corpuscular Volume 89.8 fL (80-100) Mean Corpuscular Hemoglobin 28.3 pg (25-34) Mean Corpuscular Hemoglobin Concent 31.5 g/dl (32-36) L Platelet Count 247 K/uL (130-400) Mean Platelet Volume 8.4 fL (7.4-10.4) Neutrophils (%) (Auto) 75.8 % Lymphocytes (%) (Auto) 14.8 % Monocytes (%) (Auto) 7.6 % Eosinophils (%) (Auto) 1.3 % Basophils (%) (Auto) 0.1 % Neutrophils # (Auto) 9.03 K/uL (1.4-6.5) H Lymphocytes # (Auto) 1.76 K/uL (1.2-3.4) Monocytes # (Auto) 0.91 K/uL (0.11-0.59) H Eosinophils # (Auto) 0.15 K/uL (0-0.5) Basophils # (Auto) 0.01 K/uL (0-0.2) Micro Results Date/Time Source Procedure Growth Status 11/20/16 23:00 Blood Blood Culture Pending Received 11/20/16 22:55 Blood Blood Culture Pending Received Risk Factors for Resistance * Antimicrobial use within the last 90 days; noted as stopped PO antibiotics 11 days ago Assessment & Plan Assessment 70 year old female with Osteomyelitis in her (L) hip. She has had a septic hip in the past. 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 It notes she tolerates with slower rate and pretreats with Atarax. She tolerated ED loading dose at normal rate as far as record shows. Pharmacy will continue to follow and will adjust dose/frequency as necessary. Thank you.
--- NOTE | 2016-11-21 06:45 | HISTORY & PHYSICAL EXAMINATION ---
DATE OF ADMISSION: 11/21/2016 CHIEF COMPLAINT: Worsening left hip pain. HISTORY OF PRESENT ILLNESS: History is obtained from the patient and records. Medical history is significant for hypertension, chronic anemia (baseline hemoglobin of 8), PAF on Coumadin, hyperlipidemia, past tobacco abuse, chronic hyponatremia, Hx septic arthritis, L hip (MSSA) sp IV Ceftriaxone later Vancomycin course. The patient confined September 27- for septic arthritis, left hip. Aspirate negative, blood cultures grew MSSA. Px discharged to [facility] for rehabilitation on 6 week course of IV ceftriaxone. Plan for Ortho evaluation for left hip replacement after infection has cleared as per discharge note. PX readmitted October 12 for anemia and left hip pain. Coumadin resumed. PX discharged to [facility] for rehabilitation. PX noted to have a drug reaction/rash at [facility] attributed to IV Ceftriaxone. Px switched to IV vancomycin as per ID recommendation. Px dcd home from rehabilitation about 3 weeks ago. Had a follow up with ID outpatient last week. IV Vancomycin discontinued. PICC line removed. The last 2 days worsening of chronic left hip pain, achy. Fever of 101 at home , intermittent, no chest pain. No nausea, no cough. Constipated. Patient was brought to the Emergency Room. CAT scan initial read showed fracture of the neck left femur with volume loss, sclerosis femoral head grossly unchanged, subacute fracture inferior-superior left pubic ramus, large joint effusion, peripheral enhancement , appearing worse, possible osteomyelitis with septic arthritis, small collection , possible tiny abscess, new. Patient given Vancomycin in the Emergency Room. MEDICAL HISTORY: As above SURGICAL HISTORY: Hernia repair. HOME MEDICATIONS: Include, furosemide, hydromorphone, hydroxyzine, multivitamins, calcium carbonate, Coumadin, diltiazem, ferrous sulfate, gabapentin, vancomycin, Neurontin, Pamelor, tramadol. ALLERGIES: TO BRIMONIDINE, CODEINE, LATEX, , PERCOCET, ROCEPHIN. PERSONAL AND SOCIAL HISTORY: Past tobacco abuse. hx chronic alcohol intake in the past. 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 FAMILY HISTORY: History of esophageal cancer. REVIEW OF SYSTEMS: As per HPI, all other ROS negative. PHYSICAL EXAMINATION: VITAL SIGNS: Blood pressure noted to be 150/70, pulse rate 105 later 87, RR 18, temperature 36.8, sats 97 on room air. GENERAL: Noted to be slightly uncomfortable, no respiratory distress. SKIN: Pallor. HEENT: [place] palpebral conjunctivae. Dry mucosa. Old lip asymmetry. NECK: No JVD. Supple. CHEST: Clear to auscultation. HEART: Regular rate and rhythm. ABDOMEN: Soft. EXTREMITIES : Tenderness, L hip NEUROLOGIC: No gross focality, except for old lip asymmetry. LABORATORY DATA: Hemoglobin was noted to be 8.3, hematocrit 36.1, white cell count 13.48, platelets 200. ESR 31. CRP 24.7. Sodium 140, potassium 3.5, chloride 95, CO2 28, BUN 18, creatinine 0.94, glucose was noted to be 92. INR was 1.9. CT abd pelvis as above. ASSESSMENT: 1. Sepsis secondary to septic arthritis/Left hip osteomyelitis hx MSSA sp IV Ceftriaxone/Vancomycin Rx 2. pathologic fracture secondary to above. 3. Hypertension, slightly elevated. 4. PAF, NSR, on anticoagulation. INR is slightly subtherapeutic 5. Past tobacco abuse. 6. Chronic anemia, hemoglobin at baseline. 7. Chronic hyponatremia 8. Constipation PLAN: GMF Cultures, IV Vancomycin. Follow official CT read. Orthopedics consult RE left hip pain, abnormal CT. (ER provider already in touch with with Dr. Chew.) ID consult RE sepsis. (Patient known to Dr. Fletcher.) Hold Coumadin for now until patient seen by Orthopedics in anticipation of any procedure. Bowel regimen DVT prophylaxis. SCDs while INR less than 2 while Coumadin on hold. Resume Coumadin if okay with Ortho. Full code. MTDD
[2016-11-21 07:11] VITALS: BP 146/77; PULSE 87; TEMP 36.7; O2SAT 94
--- NOTE | 2016-11-21 07:34 | DIAGNOSTIC IMAGING REPORT ---
ABDOMEN AND PELVIS CT WITH IV CONTRAST CT DOSE: 795.46 mGycm HISTORY: prior L hip septic arthritis, septicemia, recurrent symptoms TECHNIQUE: Multiaxial CT images of the abdomen and pelvis were performed following the use of intravenous contrast. A dose lowering technique was utilized adhering to the principles of ALARA. COMPARISON STUDY: Abdomen and pelvis CT 09/26/2016. FINDINGS: Bibasilar linear densities consistent with subsegmental atelectasis. No pneumoperitoneum. No pneumatosis. Healing left pubic fractures. Progressive cortical destruction within the left hip with progressive sclerosis and a peripheral enhancing left hip effusion consistent with septic arthritis. The there is a new fluid collection abutting the posterior aspect of the left hip which measures 5.7 cm. This likely represents a component of the hip effusion. Cortical destruction at the base of the femoral neck which is consistent with an impending fracture. There is mild lateral subluxation of the residual left femoral head in relation to the acetabulum. Small calcification within the uterus consistent with a fibroid. Normal bladder. Small left iliopsoas bursa which is also increased in size. Colonic diverticulosis. 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 No bowel wall thickening or obstruction. The liver, gallbladder, spleen, adrenal glands, and pancreas are unremarkable. No hydronephrosis. Bilateral perinephric edema has improved. A 9 mm hypodense exophytic lesion within the left kidney. This is too small to characterize. Surgical clips within the left groin. A few prominent periaortic lymph nodes. Scoliosis and severe degenerative changes within the lumbar spine. IMPRESSION: 1. Progressive left hip septic arthritis with increase in size of the left hip effusion including a 5.7 cm fluid collection extending posterior to the hip. There is also progressive cortical destruction and subluxation of the left hip. The cortical destruction at the base of the femoral neck is concerning for an impending fracture. Orthopedic consultation is recommended. 2. Additional findings as described above. Electronically signed by: Lauro Dockery M.D. 11/21/2016 7:33 AM Dictated Date/Time: 11/21/2016 7:22 AM
[2016-11-21] MEDS: KETOROLAC TROMETHAMINE 15 MG/ML VIAL IV. PRN ×3 (08:51→23:16)
[2016-11-21] MEDS: GABAPENTIN 100 MG CAP PO SCH ×2 (08:54→13:55)
[2016-11-21] MEDS: FERROUS SULFATE 325 MG TAB PO SCH ×2 (08:55→18:10)
[2016-11-21] MEDS: DOCUSATE SODIUM/SENNA 50/8.6MG TAB PO SCH ×2 (08:55→20:54)
[2016-11-21] MEDS: CEROVITE ADV FORMULA TAB PO SCH (08:55)
[2016-11-21] MEDS ORDERED: DILTIAZEM HCL (TIAzac) 180 MG CAPCR PO SCH (09:00)
[2016-11-21] MEDS: FAMOTIDINE 20 MG TAB PO SCH (09:26)
[2016-11-21] MEDS: hydrOXYzine HCL 25 MG TAB PO PRN (09:29)
[2016-11-21] MEDS: VANCOMYCIN INJ 1,000 MG in SODIUM CHLORIDE 0.9% 250ML 250 ML IV SCH (09:36)
--- NOTE | 2016-11-21 10:15 | Progress Note ---
Progress Note Date of Service Nov 21, 2016. Progress Note ID Consult Dictated #[id number] A/P: 1. Septic Arthritis Left hip -Recently completed course abx (6weeks IV vanco) with recurrent collection, now measuring 5.7 cm, will likely need surgical intervention, has failed conservative therapy -Does have h/o MSSA, did not tolerate rocephin, will continue with vanco -Follow cultures -Will follow, thank you
--- NOTE | 2016-11-21 10:35 | INFECT. DISEASE CONSULTATION ---
DATE OF CONSULTATION: 11/21/2016 REQUESTING PHYSICIAN: Dr. Baez. HISTORY OF PRESENT ILLNESS: This is a 70-year-old female who was recently on a prolonged course of antibiotics for suspected septic arthritis of the left hip. She does have a history of avascular necrosis. She was seen by infectious diseases in the hospital in early September. At that time she was found to have MSSA septicemia. Her repeat blood cultures were negative. Her echocardiogram was negative. She did have an orthopedic evaluation. There was an attempted aspiration of her hip; however, no fluid was obtained and cultures could not be performed and she was subsequently discharged from the hospital on intravenous Rocephin. She did have difficulty tolerating this and was subsequently changed to vancomycin which she tolerated well. She was last seen in the office on 11/09/2016 and her intravenous antibiotics were discontinued at that time as she had completed greater than 6 weeks of therapy. She had her PICC line removed. She states over the weekend she got out of bed and put weight on her left leg. She had immediate significant pain and this continued throughout the weekend. She presented to the ER and had a CAT scan done which showed a fracture, a new collection measuring 5.7 cm and iliopsoas bursitis in the area. Blood cultures were obtained and are pending. Her sed rate was mildly elevated at 31 and her white blood cell count was 13.4, which did improve to 11.9 today. She has been afebrile since admission and denies any fevers at home. She was placed empirically on vancomycin and is tolerating this well. Her only complaint on my examination today is left hip pain. She denies any chest pain, cough, shortness of breath, nausea, vomiting or diarrhea. All remaining review of systems are unremarkable. PAST MEDICAL HISTORY: Hypertension, anemia, hyperlipidemia and recent MSSA septicemia followed with prolonged antibiotics. PAST SURGICAL HISTORY: Significant for hernia repair. ALLERGIES: SHE HAS ALLERGIES TO BRIMONIDINE, CODEINE, LATEX, PERCOCET AND ROCEPHIN. SOCIAL HISTORY: Significant for a history of tobacco use. She denies any alcohol or drug use. FAMILY HISTORY: Unremarkable. CURRENT MEDICATIONS: Diltiazem, Neurontin, nortriptyline, travoprost eyedrops, vancomycin, Pepcid, multivitamin, Senokot, iron therapy, Vistaril, Tylenol, Dilaudid, Ultram, MiraLax, Zofran, Toradol. PHYSICAL EXAMINATION: VITAL SIGNS: She is afebrile, pulse 87, respiratory rate is 20, blood pressure is 147/77, oxygen saturation is 94-96% on room air. GENERAL: She is awake, alert and oriented x3. She is in no acute distress. HEENT: Mucous membranes are moist. Extraocular muscles are intact. HEART: Regular. LUNGS: Clear. ABDOMEN: Soft, nontender, nondistended. EXTREMITIES: There is no lower extremity edema. There is pain in the left hip, but there is no induration or erythema. LABORATORY STUDIES: CBC today reveals a white blood cell count of 11.9, hemoglobin 7.5 and platelets are 247. Sed rate is 31. Chemistry panel reveals a sodium of 134, potassium 3.6, chloride 101, bicarbonate 26, BUN 15, creatinine 0.89, glucose is 134. LFTs are with CRP is elevated at 24.7. Urinalysis is unremarkable. Blood cultures are pending. Again, CT of the abdomen and pelvis shows fluid collection and impending fracture. ASSESSMENT AND PLAN: Likely abscess with septic arthritis. She will be continued on vancomycin. Orthopedic consultation is pending. I will follow her blood cultures. Thank you for this consultation.
[2016-11-21] MEDS: HYDROmorphone INJ 0.5 MG/0.5 ML SYR IV PRN ×3 (15:04→23:16)
[2016-11-21 15:11] VITALS: BP 152/74; PULSE 102; TEMP 37.6; O2SAT 92
--- NOTE | 2016-11-21 16:14 | Progress Note ---
Medicine Progress Note Date & Time of Visit: Nov 21, 2016 at 15:43. Subjective Pt was seen and examined Lying in bed with no acute distress continue to have some tenderness in the left hip she said that she does not have any pain if she does not move much denies any chest pain, palpitation, dizziness and sob Objective Last 8 Hrs Date Time Temp Pulse Resp B/P (MAP) Pulse Ox O2 Delivery O2 Flow Rate FiO2 11/21/16 15:11 37.6 102 20 152/74 (100) 92 Physical Exam: General- No acute distress Head- atraumatic Eyes- PERRL, EOMI ENT- oropharynx clear Neck- supple, no JVD Lungs- clear to auscultation Heart- regular rhythm Abdomen- normal bowel sounds, soft Extremities- no calf tenderness Neuro- alert, oriented x 3; PERRL, EOMI Skin- warm & dry Laboratory Results: Last 24 Hours Test 11/20/16 22:25 11/20/16 22:55 11/20/16 23:06 11/20/16 23:43 Urine Color DK YELLOW Urine Appearance CLEAR Urine pH 6.0 Urine Specific Cutler 1.021 Urine Protein 2+ Urine Glucose (UA) NEG Urine Ketones NEG Urine Occult Blood NEG Urine Nitrite NEG Urine Bilirubin NEG Urine Urobilinogen NEG Urine Leukocyte Esterase NEG Urine WBC (Auto) 1-5 /hpf Urine RBC (Auto) 0-4 /hpf Urine Hyaline Casts (Auto) 1-5 /lpf Urine Epithelial Cells (Auto) 10-20 /lpf Urine Bacteria (Auto) NEG White Blood Count 13.48 K/uL Red Blood Count 2.94 M/uL Hemoglobin 8.3 g/dL Hematocrit 26.1 % Mean Corpuscular Volume 88.8 fL Mean Corpuscular Hemoglobin 28.2 pg Mean Corpuscular Hemoglobin Concent 31.8 g/dl Platelet Count 307 K/uL Mean Platelet Volume 9.1 fL Neutrophils (%) (Auto) 79.6 % Lymphocytes (%) (Auto) 12.3 % Monocytes (%) (Auto) 7.1 % Eosinophils (%) (Auto) 0.6 % Basophils (%) (Auto) 0.1 % Neutrophils # (Auto) 10.72 K/uL Lymphocytes # (Auto) 1.66 K/uL Monocytes # (Auto) 0.96 K/uL Eosinophils # (Auto) 0.08 K/uL Basophils # (Auto) 0.02 K/uL RDW Standard Deviation 52.0 fL RDW Coefficient of Variation 15.9 % Immature Granulocyte % (Auto) 0.3 % Immature Granulocyte # (Auto) 0.04 K/uL Red Blood Cell Morphology Unremarkable Erythrocyte Sedimentation Rate 31 mm/hr Prothrombin Time 20.5 SECONDS Prothromb Time International Ratio 1.9 Sodium Level 132 mmol/L Potassium Level 3.5 mmol/L Chloride Level 95 mmol/L Carbon Dioxide Level 28 mmol/L Anion Gap 9.0 mmol/L 17.0 mmol/L Blood Urea Nitrogen 18 mg/dl Creatinine 0.94 mg/dl Est Creatinine Clear Calc Drug Dose 52.3 ml/min Estimated GFR () 71.7 Estimated GFR (Non- 61.9 BUN/Creatinine Ratio 19.3 Random Glucose 92 mg/dl Lactic Acid Level 0.8 mmol/L Calcium Level 9.5 mg/dl Magnesium Level 1.5 mg/dl C-Reactive Protein 24.70 mg/dl Bedside Hemoglobin 8.8 g/dl Bedside Hematocrit 26 % Bedside Sodium 131 mEq/L Bedside Potassium 3.5 mEq/L Bedside Chloride 92 mEq/L Bedside Total CO2 27 mEq/l Bedside Blood Urea Nitrogen 18 mg/dl Bedside Creatinine 1.0 mg/dl Bedside Glucose (other) 96 mg/dl Bedside Ionized Calcium (Yusra) 1.25 mmol/l Venous Blood pH 7.46 Venous Blood Partial Pressure CO2 38 mmHg Venous Blood Partial Pressure O2 64 mmHg Venous Blood HCO3 26 mmol/L Venous Blood Oxygen Saturation 90.2 % Venous Blood Base Excess 2.5 mEq/L Test 11/21/16 05:12 White Blood Count 11.91 K/uL Red Blood Count 2.65 M/uL Hemoglobin 7.5 g/dL Hematocrit 23.8 % Mean Corpuscular Volume 89.8 fL Mean Corpuscular Hemoglobin 28.3 pg Mean Corpuscular Hemoglobin Concent 31.5 g/dl Platelet Count 247 K/uL Mean Platelet Volume 8.4 fL Neutrophils (%) (Auto) 75.8 % Lymphocytes (%) (Auto) 14.8 % Monocytes (%) (Auto) 7.6 % Eosinophils (%) (Auto) 1.3 % Basophils (%) (Auto) 0.1 % Neutrophils # (Auto) 9.03 K/uL Lymphocytes # (Auto) 1.76 K/uL Monocytes # (Auto) 0.91 K/uL Eosinophils # (Auto) 0.15 K/uL Basophils # (Auto) 0.01 K/uL RDW Standard Deviation 52.5 fL RDW Coefficient of Variation 16.0 % Immature Granulocyte % (Auto) 0.4 % Immature Granulocyte # (Auto) 0.05 K/uL Basophilic Stippling OCCASIONAL Prothrombin Time 21.2 SECONDS Prothromb Time International Ratio 1.9 Sodium Level 134 mmol/L Potassium Level 3.6 mmol/L Chloride Level 101 mmol/L Carbon Dioxide Level 26 mmol/L Anion Gap 7.0 mmol/L Blood Urea Nitrogen 15 mg/dl Creatinine 0.89 mg/dl Est Creatinine Clear Calc Drug Dose 55.2 ml/min Estimated GFR () 76.6 Estimated GFR (Non- 66.1 BUN/Creatinine Ratio 16.7 Random Glucose 134 mg/dl Calcium Level 9.0 mg/dl Magnesium Level 1.8 mg/dl Date/Time Source Procedure Growth Status 11/20/16 23:00 Blood Blood Culture Pending Received 11/20/16 22:55 Blood Blood Culture Pending Received Assessment & Plan Septic arthritis Left hip Recently completed 6 weeks of IV abx hx MSSA sp IV Ceftriaxone and was unble to tolerate and was changed to Vancomycin CT abd/pelvis Progressive left hip septic arthritis with increase in size of the left hip effusion including a 5.7 cm fluid collection extending posterior to the hip. There is also progressive cortical destruction and subluxation of the left hip. The cortical destruction at the base of the femoral neck is concerning for an impending fracture Ortho consulted Failed conservative management with IV abx Might need surgical intervention and drainage for the hip effusion Starting om IV vanco ID on board, recommended to continue IV vanco blood cx pending Elevated CRP Chronic Anemia Hbg 7.5 this morning will do type and cross check H/H later if h/h continues to drop, will transfuse continue monitor H/H Hypertension, BP fluctuates On diltiazem Continue monitor BP PAF, Rate control On NSR, Continue cardizem Coumadin on hold/anticipated surgery INR is 1.9 Chronic hyponatremia Na 134 Continue monitor BMP Hypomagnesemia Mg 1.8 replaced continue monitor mg CKD STAGE III Stable DVT px on SCDs coumadin on hold/ Anticipate surgery INR 1.9 today CODE STATUS FULL CODE Consultants: Ortho ID Current Inpatient Medications: Current Inpatient Medications Medications (Trade) Dose Ordered Sig/Viviane Route Start Time Stop Time Status Last Admin Dose Admin Ioversol (Optiray 320) 100 ml UD PRN IV 11/20/16 22:15 11/24/16 22:14 Acetaminophen (Tylenol Tab) 650 mg Q4H PRN PO 11/21/16 02:45 12/21/16 02:44 Famotidine (Pepcid Tab) 20 mg QAM PO 11/21/16 09:00 12/21/16 08:59 11/21/16 09:26 20 MG Gabapentin (Neurontin Cap) 200 mg BID@0900,1400 PO 11/21/16 09:00 12/21/16 08:59 11/21/16 13:55 200 MG Gabapentin (Neurontin Cap) 300 mg HS PO 11/21/16 21:00 12/21/16 20:59 Hydromorphone HCl (Dilaudid Tab) 2 mg Q6H PRN PO 11/21/16 02:45 12/05/16 02:44 Multivitamins/ Minerals (Multivitamin W/ Minerals Tab) 1 tab DAILY PO 11/21/16 09:00 12/21/16 08:59 11/21/16 08:55 1 TAB Nortriptyline HCl (Pamelor Cap) 25 mg HS PO 11/21/16 21:00 12/21/16 20:59 Senna/Docusate Sodium (Senokot S Tab) 1 tab BID PO 11/21/16 09:00 12/21/16 08:59 11/21/16 08:55 1 TAB Tramadol HCl (Ultram Tab) 50 mg Q4 PRN PO 11/21/16 02:45 12/21/16 02:44 Travoprost (Travatan Z) 1 drops HS OPB 11/21/16 21:00 12/21/16 20:59 Ferrous Sulfate (Feosol Tab) 325 mg BIDM PO 11/21/16 08:30 12/21/16 08:29 11/21/16 08:55 325 MG Hydromorphone HCl (Dilaudid Inj) 0.5 mg Q3H PRN IV 11/21/16 02:45 12/05/16 02:44 11/21/16 15:04 0.5 MG Vancomycin HCl (Consult) 1 ea UD PRN N/A 11/21/16 03:30 12/21/16 03:29 Polyethylene (Miralax Powder Packet) 17 gm DAILY PRN PO 11/21/16 02:45 12/21/16 02:44 Ondansetron HCl (Zofran Inj) 4 mg Q6H PRN IV 11/21/16 02:45 12/21/16 02:44 Ketorolac Tromethamine (Toradol Inj) 15 mg Q6H PRN IV. 11/21/16 02:45 11/26/16 02:44 11/21/16 15:31 15 MG Sodium Biphosphate/ Sodium Phosphate (Fleet Enema) 132 ml DAILY PRN NC 11/21/16 02:45 12/21/16 02:44 Hydroxyzine HCl (Vistaril Tab) 25 mg Q6H PRN PO 11/21/16 03:00 12/21/16 02:59 11/21/16 09:29 25 MG Diltiazem HCl (TIAzac CAP) 180 mg QAM PO 11/22/16 09:00 12/21/16 08:59 Vancomycin HCl 1000 mg/Sodium Chloride 270 ml @ 70 mls/hr Q16H IV 11/21/16 10:00 01/02/17 09:59 11/21/16 09:36 70 MLS/HR
[2016-11-21] MEDS: TRAMADOL HCL 50 MG TAB PO PRN (18:10)
[2016-11-21 18:52] LABS: HEMATOCRIT 23.7 % (37-47)
[2016-11-21] MEDS: TRAVOPROST Z 0.004% OPH SOLN 2.5 ML BTL OPB SCH (20:49)
[2016-11-21] MEDS: NORTRIPTYLINE HCL 25 MG CAP PO SCH (20:52)
[2016-11-21] MEDS: GABAPENTIN 300 MG CAP PO SCH (20:52)
[2016-11-21] MEDS: HYDROmorphone HCL 2 MG TAB PO PRN (20:59)
[2016-11-21 23:00] VITALS: BP 136/77; PULSE 111; TEMP 37.8; O2SAT 94
[2016-11-22] VITALS (9 sets, daily range): BP systolic 135–156; BP diastolic 76–89; PULSE 99–108; TEMP 36.9–38; O2SAT 92–97
[2016-11-22] MEDS: hydrOXYzine HCL 25 MG TAB PO PRN ×2 (01:35→19:14)
[2016-11-22] MEDS: VANCOMYCIN INJ 1,000 MG in SODIUM CHLORIDE 0.9% 250ML 250 ML IV SCH ×2 (01:35→19:11)
--- NOTE | 2016-11-22 02:18 | ORTHOPEDIC CONSULTATION ---
DATE OF CONSULTATION: 11/21/2016 HISTORY OF PRESENT ILLNESS: A 70-year-old female with complex left hip pain and pathology. She had a history of severe arthritis of her hip and questionable septic hip. There was a dry tap previously, so we never fully identified whether she had a true septic hip. She has advanced DJD. This has worsened over the time with proximal migration of the femoral head superolaterally, progressive flattening of the femoral head, probable AVN, cystic changes and joint effusion. She has widened acetabulum from the chronic DJD. She was treated with antibiotics for MSSA septicemia. She is on IV Rocephin, changed to vancomycin. Recently she has increased weightbearing with new onset pain in the last few weeks. She has more pain, less range of motion than she had previously at this time. She was worked up with CT scan which demonstrated new 5.7 cm fluid collection which was posterior to hip, near the posterior acetabulum, and posterior hip joint area. She has some fluid in the iliopsoas tendon area. The fluid collection posteriorly is more significant. She also has severe DJD of the head and cystic changes around the neck, possible impending fracture of the neck and this could be signs of osteomyelitis potentially. Sed rate is only 31; however, her white count is 13.4, which has decreased to 11.9 on admission. PAST MEDICAL HISTORY: Positive for hypertension, anemia. PAST SURGICAL HISTORY: Hernia repair. SOCIAL HISTORY: Tobacco use. CURRENT HOME MEDICATIONS: Are, vancomycin, Tylenol, Dilaudid and Neurontin, and other usual medications. PHYSICAL EXAMINATION: EXTREMITIES: Demonstrates about 60 degrees range of motion passively of hip. She has a shortened left leg with some of her pelvic obliquities due to severe scoliosis as well. She has significant pain with any range of motion of the left hip. She has no redness over the hip and no obvious swelling. NEUROLOGICAL: Exam is intact. ASSESSMENT: Severe avascular necrosis and possible impending femoral neck fracture and severe degenerative joint disease and acetabular destruction and widening. The patient truly has a septic hip, but she is not a candidate for hip replacement surgery, or any hardware fix any fracture. Treatment is medical management initially. If open surgery will be entertained to treat a condition then a resection arthroplasty will most likely be required or possibly some type of cement, Prostalac type spacer could be placed to maintain soft tissue space and antibiotic beads with an incision and drainage of the hip. Likely, this is best from the posterior approach because the fluid is primarily posterior located. At this time, we ordered a consult to radiology to see if we can get an ultrasound or CT guided aspirate of the fluid collection which was felt possibly they would attempt to do this tomorrow. If the patient ends up coming to surgery, most likely we are going to transfer to a tertiary care center for surgery. PANCHO
[2016-11-22 07:12] LABS: BASO % 0.3 %; BASO ABS # 0.03 K/uL (0-0.2); EOS % 3.3 %; HEMATOCRIT 22.9 % (37-47); IG% 0.3 %; LYMPH % 13.9 %; LYMPH ABS # 1.56 K/uL (1.2-3.4); MEAN CELL VOLUME 88.4 fL (80-100); MEAN CORPUSCULAR HEMOGLOBIN 28.6 pg (25-34); MEAN CORPUSCULAR HGB CONC 32.3 g/dl (32-36); MEAN PLATELET VOLUME 8.8 fL (7.4-10.4); MONO % 8.8 %; NEUT % 73.4 %; PLATELET COUNT 318 K/uL (130-400); RED BLOOD COUNT 2.59 M/uL (4.2-5.4); WHITE BLOOD COUNT 11.24 K/uL (4.8-10.8)
[2016-11-22] MEDS: TRAMADOL HCL 50 MG TAB PO PRN ×3 (07:19→16:11)
[2016-11-22 07:32] LABS: INR 1.6 (0.9-1.1); PROTHROMBIN TIME (PATIENT) 17.9 SECONDS (9.0-12.0)
[2016-11-22 07:35] LABS: ANISOCYTOSIS PRESENT; COMPLETE YES; HYPERSEGMENTED POLYS 1+
[2016-11-22 07:49] LABS: BUN/CREATININE RATIO 16.6 (10-20); CALCIUM 8.9 mg/dl (8.5-10.1); CREATININE 0.94 mg/dl (0.60-1.20); MAGNESIUM 1.7 mg/dl (1.8-2.4); POTASSIUM 4.4 mmol/L (3.5-5.1)
[2016-11-22] MEDS: HYDROmorphone HCL 2 MG TAB PO PRN ×2 (08:50→22:02)
[2016-11-22] MEDS: GABAPENTIN 100 MG CAP PO SCH ×2 (08:52→13:45)
[2016-11-22] MEDS: CEROVITE ADV FORMULA TAB PO SCH (08:52)
[2016-11-22] MEDS: FERROUS SULFATE 325 MG TAB PO SCH ×2 (08:52→19:10)
[2016-11-22] MEDS: DOCUSATE SODIUM/SENNA 50/8.6MG TAB PO SCH ×2 (08:53→22:01)
[2016-11-22] MEDS: DILTIAZEM HCL (TIAzac) 180 MG CAPCR PO SCH (08:53)
[2016-11-22] MEDS: FAMOTIDINE 20 MG TAB PO SCH (09:22)
[2016-11-22] MEDS ORDERED: MAGNESIUM SULFATE 1GM / D5W 1 GM in PREMIXED IN D5W 100 ML IV ONE (11:30)
[2016-11-22] MEDS: HYDROmorphone INJ 0.5 MG/0.5 ML SYR IV PRN ×2 (13:48→19:13)
--- NOTE | 2016-11-22 14:24 | Progress Note ---
Subjective Date of Service: Nov 22, 2016. Subjective pt off of floor, tolerating abx. afebrile. blood cultures negative to date. orhto eval noted. Problem List Medical Problems: (1) Abnormal white blood cell count Status: Acute (2) Anemia Status: Acute (3) Dehydration Status: Acute (4) Effusion, left hip Status: Acute (5) Fall Status: Acute (6) Fall Status: Acute (7) Fracture of neck of left femur Status: Acute (8) Hypomagnesemia Status: Acute (9) Hyponatremia Status: Acute (10) Hyponatremia Status: Acute (11) Left hip pain Status: Acute (12) Lumbar contusion Status: Acute (13) Lumbar contusion Status: Acute (14) Pelvic fracture Status: Acute (15) Pelvic fracture Status: Acute (16) Sepsis Status: Acute (17) Septic arthritis Status: Acute (18) Tachycardia Status: Acute (19) UTI (urinary tract infection) Status: Acute Objective Vital Signs Date Time Temp Pulse Resp B/P (MAP) Pulse Ox O2 Delivery O2 Flow Rate FiO2 11/22/16 10:33 36.9 104 18 151/80 95 11/22/16 09:46 37.1 11/22/16 09:35 37.9 106 17 146/79 11/22/16 09:05 37.6 106 16 156/89 11/22/16 08:50 37.2 106 16 144/84 96 11/22/16 08:34 37.3 108 16 154/76 11/22/16 07:47 37.1 106 18 146/76 (99) 97 Room Air 11/22/16 07:15 Room Air 11/21/16 23:55 Room Air 11/21/16 23:00 37.8 111 18 136/77 (96) 94 Room Air 11/21/16 20:00 Room Air 11/21/16 15:11 37.6 102 20 152/74 (100) 92 Laboratory Results Item Value Date Time Blood Culture - Preliminary Resulted 11/20/16 2255 Blood NO GROWTH TO DATE. Blood Culture - Preliminary Resulted 11/20/16 2300 Blood NO GROWTH TO DATE. Last 24 Hours Test 11/21/16 16:59 11/22/16 06:45 Hemoglobin 7.5 g/dL 7.4 g/dL Hematocrit 23.7 % 22.9 % White Blood Count 11.24 K/uL Red Blood Count 2.59 M/uL Mean Corpuscular Volume 88.4 fL Mean Corpuscular Hemoglobin 28.6 pg Mean Corpuscular Hemoglobin Concent 32.3 g/dl Platelet Count 318 K/uL Mean Platelet Volume 8.8 fL Neutrophils (%) (Auto) 73.4 % Lymphocytes (%) (Auto) 13.9 % Monocytes (%) (Auto) 8.8 % Eosinophils (%) (Auto) 3.3 % Basophils (%) (Auto) 0.3 % Neutrophils # (Auto) 8.26 K/uL Lymphocytes # (Auto) 1.56 K/uL Monocytes # (Auto) 0.99 K/uL Eosinophils # (Auto) 0.37 K/uL Basophils # (Auto) 0.03 K/uL RDW Standard Deviation 52.3 fL RDW Coefficient of Variation 16.1 % Immature Granulocyte % (Auto) 0.3 % Immature Granulocyte # (Auto) 0.03 K/uL Hypersegmented Polys 1+ Anisocytosis PRESENT Prothrombin Time 17.9 SECONDS Prothromb Time International Ratio 1.6 Sodium Level 134 mmol/L Potassium Level 4.4 mmol/L Chloride Level 103 mmol/L Carbon Dioxide Level 26 mmol/L Anion Gap 5.0 mmol/L Blood Urea Nitrogen 16 mg/dl Creatinine 0.94 mg/dl Est Creatinine Clear Calc Drug Dose 52.3 ml/min Estimated GFR () 71.7 Estimated GFR (Non- 61.9 BUN/Creatinine Ratio 16.6 Random Glucose 82 mg/dl Calcium Level 8.9 mg/dl Magnesium Level 1.7 mg/dl Assessment and Plan (1) Septic arthritis Assessment & Plan: continue abx, follow cultures. (2) Fracture of neck of left femur
--- NOTE | 2016-11-22 15:09 | ORTHOPEDIC PROGRESS NOTE ---
DATE: 11/22/2016 DATE: 11/22/2016 SUBJECTIVE: The patient is currently lying in her bed awaiting an ultrasound of her left hip. She was just recently seen by Dr. Shultz approximately a half hour prior to my visit. The two of them discussed what had been going on with her hip and the possibilities that may occur in the future with this left hip. The patient has been frustrated for multiple reasons, but most recently the original CAT scan that was ordered had to be canceled due to the CAT scan machine being down. An ultrasound of the hip was then ordered and the patient is now awaiting ultrasound aspiration at this time. We discussed that there could be possible several things to do with the hip, however she understands that this may have to be taken care of at a tertiary care facility. She discussed the fact of how long she has had low back pain and has been having pain management as well as injections in the past. She has had years of low back pain which may have also been masking her left hip pain and she understands this. Currently, she is hoping that they are able to successfully aspirate some fluid from this area to get an idea of what could be causing the fluid collection and infection in the posterior aspect of her hip. She currently has no new complaints at this time and is now patiently awaiting her ultrasound. Currently her pain is fairly controlled at rest and states that she just received some pain medication prior to coming down for the ultrasound. However, when she tries to shift her weight in bed she has notable pain in the left hip. PHYSICAL EXAMINATION: She obviously has leg length discrepancy on the left versus the right. No attempts were made to move the hip due to pain and will be deferred. ASSESSMENT: Severe avascular necrosis and possible pending neck fracture with severe degenerative joint disease and acetabular destruction and widening with question of a septic hip versus abscess collection just posterior to the acetabulum. PLAN: Ultrasound aspiration of the area in hopes to get a sample for culture and cell count, continue IV antibiotics at this time per infectious disease and/or medical team. If ultrasound is unsuccessful, it may be necessary to have the CT guided aspirate done when the CT scanner is up and running. We will currently wait ultrasounds results and move forward from there. PANCHO
--- NOTE | 2016-11-22 15:22 | DIAGNOSTIC IMAGING REPORT ---
ULTRASOUND-GUIDED LEFT HIP ASPIRATION (no charge) CLINICAL HISTORY: fluid collection left posterior hip COMPARISON STUDY: CT scan dated 11/20/2016 FINDINGS: The aspiration was initially scheduled to be performed with CT guidance. Unfortunately one of the CT scanners was inoperable. I was asked to attempt the procedure under ultrasound guidance. A timeout was performed. The risks the procedure were explained the patient informed consent was obtained. The patient was prepped and draped in sterile fashion. The skin was anesthetized 1% lidocaine. The fluid collection was difficult to visualized ultrasonographically. An attempt to aspirate the collection was unsuccessful. A decision was made to transfer the patient to the CT scan for CT-guided aspiration. No charge will be made for the unsuccessful ultrasound and aspiration. IMPRESSION: Ultrasound aspiration was unsuccessful, and the patient was transferred to the CT suite. Ultrasound or CT guidance was successful. Please see the CT dictation. Electronically signed by: Reggie Cota M.D. 11/22/2016 3:21 PM Dictated Date/Time: 11/22/2016 3:18 PM
--- NOTE | 2016-11-22 15:34 | DIAGNOSTIC IMAGING REPORT ---
CT GUIDED LEFT HIP ASPIRATION CT DOSE: 223.46 mGycm CLINICAL HISTORY: Infected left hip. Fluid collection posterior to the left hip. TECHNIQUE: The consent for the attempted ultrasound aspiration was used. A dose lowering technique was utilized adhering to the principles of ALARA. COMPARISON STUDY: CT scan dated 11/20/2016 FINDINGS: The patient was scanned in the right lateral decubitus position. Utilizing CT guidance and a grid marker, the skin over the collection was localized and marked. The patient was prepped and draped in sterile fashion. The skin was anesthetized 1% lidocaine. A 9 cm 16-gauge needle, the fluid collection which appears to communicate with the joint was aspirated. 20 cc of pus was aspirated. The fluid was sent to the laboratory for culture and sensitivity. IMPRESSION: Successful CT-guided left hip joint aspiration. 20 cc of pus was aspirated and sent for culture. Electronically signed by: Reggie Cota M.D. 11/22/2016 3:32 PM Dictated Date/Time: 11/22/2016 3:21 PM
[2016-11-22 17:26] LABS: HEMATOCRIT 27.8 % (37-47)
--- NOTE | 2016-11-22 18:10 | ORTHOPEDIC PROGRESS NOTE ---
DATE: 11/22/2016 SUBJECTIVE: The patient was seen earlier in the day just prior to ultrasound of her left hip to rule out abscess formation. Shortly after seeing her, the ultrasound was performed and they were able to retrieve 20 mL of what appeared to be a purulent fluid and it was sent off for culture and Gram stain. I discussed the case with Dr. Shultz and plans at this time are now be to have her undergo irrigation and debridement of her left hip where the area of abscess is located. Tentative time is 7:15 AM tomorrow. We will repeat her H/H. I spoke to Microbiology and hopefully we will have a gram stain result soon. PANCHO
--- NOTE | 2016-11-22 18:53 | Anesthesiology Progress Note ---
Anesthesia Progress Note Date of Service Nov 22, 2016. Progress Notes The patient is a 70 y/o female scheduled for L hip I and D by Dr. Shultz tomorrow. 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 She is currently on vancomycin which is being given very slowly due to her developing Brendon's syndrome. Other PMH includes afib on coumadin, HTN, hiatal hernia, GERD, arthritis, lumbago, an recent episode of acute kidney failure, hyponatremia, a recent episode of CHF, diastolic dysfunction Grade 1, anemia of unknown origin requiring one unit PRBC, and MRSA. She is an ex smoker of 40 years. She has had no anesthesia problems in the past. Her CXR shows NAD. Her EKG from 10/12 shows sinus tach with PACs. Her echo from 09/28 shows EF 60-65% with grade 1 diastolic dysfunction. Significant labs from today show hgb of 9.2 up from 7.4 , WBC 11.2, Na 134, magnesium 1.7, and INR 1.6. On exam the patient was sitting in bed and appeared to be in pain whenever her L leg moved. She was a MP 2 airway with okay neck extension. Dentition was intact. Lungs were clear. Heart was rapid and irregular. She was negative for carotid bruits. The patient is an ASA 3. She was consented for general anesthesia. She was counseled to remain NPO after midnight except for sips of water with pills. She has one unit of PRBC on hold.
--- NOTE | 2016-11-22 19:07 | Progress Note ---
Medicine Progress Note Date & Time of Visit: Nov 22, 2016 at 18:55. Subjective Pt was seen and examined Lying in bed with no distress just had aspiration done in the left hip about 20cc of pus collected she said that pain seems less after the drainage she received 1 units PRBC this morning she was very emotional this morning about the whole situation concerning her hip denies any chest pain, palpitation, dizziness and SOB Objective Last 8 Hrs Date Time Temp Pulse Resp B/P (MAP) Pulse Ox O2 Delivery O2 Flow Rate FiO2 11/22/16 15:29 37.0 99 18 155/76 (102) 92 Room Air Physical Exam: General- No acute distress Head- atraumatic Eyes- PERRL, EOMI ENT- oropharynx clear Neck- supple, no JVD Lungs- clear to auscultation Heart- regular rhythm Abdomen- normal bowel sounds, soft Extremities- no calf tenderness Neuro- alert, oriented x 3; PERRL, EOMI Skin- warm & dry Laboratory Results: Last 24 Hours Test 11/22/16 00:00 11/22/16 06:45 11/22/16 17:17 White Blood Count 11.24 K/uL Red Blood Count 2.59 M/uL Hemoglobin 7.4 g/dL 9.2 g/dL Hematocrit 22.9 % 27.8 % Mean Corpuscular Volume 88.4 fL Mean Corpuscular Hemoglobin 28.6 pg Mean Corpuscular Hemoglobin Concent 32.3 g/dl Platelet Count 318 K/uL Mean Platelet Volume 8.8 fL Neutrophils (%) (Auto) 73.4 % Lymphocytes (%) (Auto) 13.9 % Monocytes (%) (Auto) 8.8 % Eosinophils (%) (Auto) 3.3 % Basophils (%) (Auto) 0.3 % Neutrophils # (Auto) 8.26 K/uL Lymphocytes # (Auto) 1.56 K/uL Monocytes # (Auto) 0.99 K/uL Eosinophils # (Auto) 0.37 K/uL Basophils # (Auto) 0.03 K/uL RDW Standard Deviation 52.3 fL RDW Coefficient of Variation 16.1 % Immature Granulocyte % (Auto) 0.3 % Immature Granulocyte # (Auto) 0.03 K/uL Hypersegmented Polys 1+ Anisocytosis PRESENT Prothrombin Time 17.9 SECONDS Prothromb Time International Ratio 1.6 Sodium Level 134 mmol/L Potassium Level 4.4 mmol/L Chloride Level 103 mmol/L Carbon Dioxide Level 26 mmol/L Anion Gap 5.0 mmol/L Blood Urea Nitrogen 16 mg/dl Creatinine 0.94 mg/dl Est Creatinine Clear Calc Drug Dose 52.3 ml/min Estimated GFR () 71.7 Estimated GFR (Non- 61.9 BUN/Creatinine Ratio 16.6 Random Glucose 82 mg/dl Calcium Level 8.9 mg/dl Magnesium Level 1.7 mg/dl Date/Time Source Procedure Growth Status 11/22/16 00:00 Joint Fluid/Space (Synovial) Hip , Left Gram Stain Pending Received 11/22/16 00:00 Joint Fluid/Space (Synovial) Hip , Left Bacterial Culture Pending Received Assessment & Plan Septic arthritis Left hip Recently completed 6 weeks of IV abx hx MSSA sp IV Ceftriaxone and was unble to tolerate and was changed to Vancomycin CT abd/pelvis Progressive left hip septic arthritis with increase in size of the left hip effusion including a 5.7 cm fluid collection extending posterior to the hip. There is also progressive cortical destruction and subluxation of the left hip. The cortical destruction at the base of the femoral neck is concerning for an impending fracture Ortho consulted Failed conservative management with IV abx Might need surgical intervention and drainage for the hip effusion Starting on IV vanco ID on board, recommended to continue IV vanco blood cx pending Elevated CRP 11/22 Had u/s aspiration done today where 20cc purulent fluid collected and sent for culture Plan to undergo irrigation and debridement of her left hip tomorrow If pt need an extensive surgery, might need to transfer to a tertiary center for the procedure as per ortho NPO after midnight Continue IV antibiotic with Vanco ID on board Chronic Anemia Hbg 7.5 this morning will do type and cross check H/H later if h/h continues to drop, will transfuse continue monitor H/H 11/22 s/p 1 unit prbc today repeat hgb 9.2 continue monitor h/h Hypertension BP fluctuates On diltiazem Continue monitor BP PAF, Rate control On NSR, Continue cardizem Coumadin on hold/anticipated surgery INR is 1.6 Chronic hyponatremia Na 134 Continue monitor BMP Hypomagnesemia Mg 1.7 today replaced continue monitor mg CKD STAGE III Stable DVT px on SCDs coumadin on hold/ Anticipate surgery INR 1.6 today/ SCDs CODE STATUS FULL CODE Disposition Continue IV abx Plan for irrigation and debridement of her left hip tomorrow Consultants: Ortho ID Current Inpatient Medications: Current Inpatient Medications Medications (Trade) Dose Ordered Sig/Viviane Route Start Time Stop Time Status Last Admin Dose Admin Ioversol (Optiray 320) 100 ml UD PRN IV 11/20/16 22:15 11/24/16 22:14 Acetaminophen (Tylenol Tab) 650 mg Q4H PRN PO 11/21/16 02:45 12/21/16 02:44 Famotidine (Pepcid Tab) 20 mg QAM PO 11/21/16 09:00 12/21/16 08:59 11/22/16 09:22 20 MG Gabapentin (Neurontin Cap) 200 mg BID@0900,1400 PO 11/21/16 09:00 12/21/16 08:59 11/22/16 13:45 200 MG Gabapentin (Neurontin Cap) 300 mg HS PO 11/21/16 21:00 12/21/16 20:59 11/21/16 20:52 300 MG Hydromorphone HCl (Dilaudid Tab) 2 mg Q6H PRN PO 11/21/16 02:45 12/05/16 02:44 11/22/16 08:50 2 MG Multivitamins/ Minerals (Multivitamin W/ Minerals Tab) 1 tab DAILY PO 11/21/16 09:00 12/21/16 08:59 11/22/16 08:52 1 TAB Nortriptyline HCl (Pamelor Cap) 25 mg HS PO 11/21/16 21:00 12/21/16 20:59 11/21/16 20:52 25 MG Senna/Docusate Sodium (Senokot S Tab) 1 tab BID PO 11/21/16 09:00 12/21/16 08:59 11/22/16 08:53 1 TAB Tramadol HCl (Ultram Tab) 50 mg Q4 PRN PO 11/21/16 02:45 12/21/16 02:44 11/22/16 16:11 50 MG Travoprost (Travatan Z) 1 drops HS OPB 11/21/16 21:00 12/21/16 20:59 11/21/16 20:49 1 DROPS Ferrous Sulfate (Feosol Tab) 325 mg BIDM PO 11/21/16 08:30 10/27/17 08:29 11/22/16 08:52 325 MG Hydromorphone HCl (Dilaudid Inj) 0.5 mg Q3H PRN IV 11/21/16 02:45 12/05/16 02:44 11/22/16 13:48 0.5 MG Vancomycin HCl (Consult) 1 ea UD PRN N/A 11/21/16 03:30 12/21/16 03:29 Polyethylene (Miralax Powder Packet) 17 gm DAILY PRN PO 11/21/16 02:45 12/21/16 02:44 Ondansetron HCl (Zofran Inj) 4 mg Q6H PRN IV 11/21/16 02:45 12/21/16 02:44 Ketorolac Tromethamine (Toradol Inj) 15 mg Q6H PRN IV. 11/21/16 02:45 11/26/16 02:44 11/21/16 23:16 15 MG Sodium Biphosphate/ Sodium Phosphate (Fleet Enema) 132 ml DAILY PRN DE 11/21/16 02:45 12/21/16 02:44 Hydroxyzine HCl (Vistaril Tab) 25 mg Q6H PRN PO 11/21/16 03:00 12/21/16 02:59 11/22/16 01:35 25 MG Diltiazem HCl (TIAzac CAP) 180 mg QAM PO 11/22/16 09:00 12/21/16 08:59 11/22/16 08:53 180 MG Vancomycin HCl 1000 mg/Sodium Chloride 270 ml @ 70 mls/hr Q16H IV 11/21/16 10:00 01/02/17 09:59 11/22/16 01:35 70 MLS/HR
[2016-11-22 19:34] LABS: SYNOVIAL FLUID APPEARANCE BLOODY; SYNOVIAL FLUID COLOR RED
[2016-11-22] MEDS: TRAVOPROST Z 0.004% OPH SOLN 2.5 ML BTL OPB SCH (22:00)
[2016-11-22] MEDS: NORTRIPTYLINE HCL 25 MG CAP PO SCH (22:01)
[2016-11-22] MEDS: GABAPENTIN 300 MG CAP PO SCH (22:03)
[2016-11-22] MEDS: KETOROLAC TROMETHAMINE 15 MG/ML VIAL IV. PRN (23:33)
[2016-11-23] VITALS (10 sets, daily range): BP systolic 121–153; BP diastolic 73–93; PULSE 81–93; TEMP 36.4–37; O2SAT 93–99
[2016-11-23 06:52] LABS: BASO % 0.4 %; BASO ABS # 0.04 K/uL (0-0.2); EOS % 4.3 %; HEMATOCRIT 24.6 % (37-47); IG% 0.3 %; LYMPH % 14.1 %; LYMPH ABS # 1.35 K/uL (1.2-3.4); MEAN CELL VOLUME 87.9 fL (80-100); MEAN CORPUSCULAR HEMOGLOBIN 28.9 pg (25-34); MEAN CORPUSCULAR HGB CONC 32.9 g/dl (32-36); MEAN PLATELET VOLUME 8.3 fL (7.4-10.4); MONO % 8.1 %; NEUT % 72.8 %; PLATELET COUNT 300 K/uL (130-400); WHITE BLOOD COUNT 9.55 K/uL (4.8-10.8)
[2016-11-23] MEDS ORDERED: PROPOFOL IV EMULSION 10 MG/ML 20 ML VIAL IV ONE (06:58)
[2016-11-23] MEDS ORDERED: FENTANYL CITRATE INJ 50 MCG/1 ML 2 ML VIAL ONE ×3 (06:58→09:26)
[2016-11-23] MEDS ORDERED: MIDAZOLAM HCL 1 MG/ML 2ML VIAL ONE (06:58)
[2016-11-23] MEDS ORDERED: ONDANSETRON INJ 2 MG/ML 2 ML VIAL ONE (06:59)
[2016-11-23] MEDS ORDERED: LIDOCAINE HCL 2% 2 ML VIAL (20MG/ML) ONE ×2 (06:59→07:00)
[2016-11-23] MEDS ORDERED: BACITRACIN 50000 UNIT VIAL ONE (07:06)
[2016-11-23] MEDS ORDERED: POVIDONE-IODINE OP SOLN 30 ML BTL ONE (07:06)
[2016-11-23] MEDS ORDERED: VANCOMYCIN HCL 1000MG/20ML VIAL ONE (07:07)
[2016-11-23] MEDS ORDERED: GENTAMICIN SULFATE 40 MG/ML 2 ML VIAL ONE ×2 (07:07→07:38)
[2016-11-23 07:13] LABS: INR 1.4 (0.9-1.1); PROTHROMBIN TIME (PATIENT) 15.4 SECONDS (9.0-12.0)
[2016-11-23 07:18] LABS: COMPLETE YES; ECHINOCYTES 1+
--- NOTE | 2016-11-23 07:21 | History & Physical Bridge Note ---
H&P Re-Evaluation Bridge Note: I have examined the patient, reviewed the History & Physical and in the interval since the performance of the History & Physical I have noted the following changes of clinical significance: No changes noted
[2016-11-23 07:34] LABS: BUN/CREATININE RATIO 15.5 (10-20); CALCIUM 9.1 mg/dl (8.5-10.1); CREATININE 0.92 mg/dl (0.60-1.20); MAGNESIUM 1.6 mg/dl (1.8-2.4); POTASSIUM 3.9 mmol/L (3.5-5.1)
[2016-11-23] MEDS ORDERED: TOBRAMYCIN SULF 1.2 GM VIAL (POWDER) ONE (07:37)
[2016-11-23] MEDS ORDERED: DEXAMETHASONE SOD INJ 4 MG/ML VIAL ONE (07:43)
[2016-11-23] MEDS ORDERED: HYDROmorphone INJ 2 MG/ML SYR/VIAL ONE (08:03)
[2016-11-23] MEDS ORDERED: BISACODYL 10 MG SUPP PR PRN (09:00)
[2016-11-23] MEDS: GABAPENTIN 100 MG CAP PO SCH ×3 (09:00→13:35)
[2016-11-23] MEDS ORDERED: MAGNESIUM HYDROXIDE SUSP 30 ML UDC PO PRN (09:00)
[2016-11-23] MEDS: FAMOTIDINE 20 MG TAB PO SCH ×2 (09:00→11:17)
[2016-11-23] MEDS ORDERED: ATROPINE SULFATE 0.1 MG/ML 5ML SYR IV PRN (09:15)
[2016-11-23] MEDS ORDERED: LABETALOL HCL IV 5 MG/ML 20ML IV PRN (09:15)
[2016-11-23] MEDS ORDERED: MEPERIDINE HCL 25 MG/ML CARP IV PRN (09:15)
[2016-11-23] MEDS ORDERED: EpHEDrine SULFATE INJ 50 MG/ML AMP IV PRN (09:15)
[2016-11-23] MEDS ORDERED: HYDROmorphone INJ 1 MG/ML SYR IV PRN (09:15)
[2016-11-23] MEDS ORDERED: ONDANSETRON INJ 2 MG/ML 2 ML VIAL IV PRN (09:15)
[2016-11-23] MEDS: FENTANYL CITRATE INJ 50 MCG/1 ML 2 ML VIAL IV PRN ×2 (09:28→09:34)
[2016-11-23] MEDS ORDERED: VANCOMYCIN TROUGH SCH (09:30)
--- NOTE | 2016-11-23 09:46 | Anesthesiology Progress Note ---
Anesthesia Post Op Note Date & Time Nov 23, 2016 at 09:46 Vital Signs Pain Intensity: 2 Vital Signs Past 12 Hours Date Time Temp Pulse Resp B/P (MAP) Pulse Ox O2 Delivery O2 Flow Rate FiO2 11/23/16 09:03 36.2 82 14 131/75 98 Oxymask 10 11/23/16 06:47 37.0 92 18 151/89 (109) 93 Room Air 11/23/16 05:32 36.4 11/22/16 23:30 Room Air 11/22/16 23:01 38.0 99 16 135/80 (98) 95 Room Air Notes Mental Status: alert / awake / arousable, participated in evaluation Pt Amnestic to Procedure: Yes Nausea / Vomiting: adequately controlled Pain: adequately controlled Airway Patency, RR, SpO2: stable & adequate BP & HR: stable & adequate Hydration State: stable & adequate Anesthetic Complications: no major complications apparent
[2016-11-23] MEDS: DILTIAZEM HCL (TIAzac) 180 MG CAPCR PO SCH (10:26)
[2016-11-23] MEDS: FERROUS SULFATE 325 MG TAB PO SCH ×2 (10:27→19:33)
[2016-11-23] MEDS: CEROVITE ADV FORMULA TAB PO SCH (10:27)
[2016-11-23] MEDS: DOCUSATE SODIUM/SENNA 50/8.6MG TAB PO SCH ×2 (10:27→22:11)
[2016-11-23] MEDS: DOCUSATE SODIUM 100 MG CAP PO SCH ×2 (10:29→22:11)
--- NOTE | 2016-11-23 10:34 | Progress Note ---
Subjective Date of Service: Nov 23, 2016. Subjective pt in OR, underwent ct guided aspiration of hip abscess yesterday afternoon, culture growing S. aureus ( h/o MSSA bsi in 09/2016, treated with prolonged IV abx), blood culture negative to date. underwent I&D in OR today, additional cultures sent, pending. had isolated fever overnight, tmax 38. remains on vanco , tolerating well. did not tolerated rocephin in the past. wbc 9.5hip aspirate with >93,000 wbc 98% neutrophils. Problem List Medical Problems: (1) Abnormal white blood cell count Status: Acute (2) Anemia Status: Acute (3) Dehydration Status: Acute (4) Effusion, left hip Status: Acute (5) Fall Status: Acute (6) Fall Status: Acute (7) Fracture of neck of left femur Status: Acute (8) Hypomagnesemia Status: Acute (9) Hyponatremia Status: Acute (10) Hyponatremia Status: Acute (11) Left hip pain Status: Acute (12) Lumbar contusion Status: Acute (13) Lumbar contusion Status: Acute (14) Pelvic fracture Status: Acute (15) Pelvic fracture Status: Acute (16) Sepsis Status: Acute (17) Septic arthritis Status: Acute (18) Tachycardia Status: Acute (19) UTI (urinary tract infection) Status: Acute Objective Vital Signs Date Time Temp Pulse Resp B/P (MAP) Pulse Ox O2 Delivery O2 Flow Rate FiO2 11/23/16 10:12 36.5 81 14 130/87 (101) 97 Nasal Cannula 2.0 11/23/16 09:50 36.4 78 16 136/67 98 Nasal Cannula 2 11/23/16 09:40 79 15 124/67 97 Nasal Cannula 2 11/23/16 09:30 81 16 128/74 100 Nasal Cannula 2 11/23/16 09:20 85 15 123/70 100 Oxymask 10 11/23/16 09:10 80 22 123/76 98 Oxymask 10 11/23/16 09:03 36.2 82 14 131/75 98 Oxymask 10 11/23/16 06:47 37.0 92 18 151/89 (109) 93 Room Air 11/23/16 05:32 36.4 11/22/16 23:30 Room Air 11/22/16 23:01 38.0 99 16 135/80 (98) 95 Room Air 11/22/16 16:00 Room Air 11/22/16 15:29 37.0 99 18 155/76 (102) 92 Room Air 11/22/16 10:33 36.9 104 18 151/80 95 Laboratory Results Item Value Date Time Gram Stain - Final Resulted 11/22/16 0000 Joint Fluid/Space (Synovial) Hip , Left Blood Culture - Preliminary Resulted 11/20/16 2255 Blood NO GROWTH TO DATE. Blood Culture - Preliminary Resulted 11/20/16 2300 Blood NO GROWTH TO DATE. Last 24 Hours Test 11/22/16 17:17 11/23/16 06:36 11/23/16 09:57 Hemoglobin 9.2 g/dL 8.1 g/dL Hematocrit 27.8 % 24.6 % White Blood Count 9.55 K/uL Red Blood Count 2.80 M/uL Mean Corpuscular Volume 87.9 fL Mean Corpuscular Hemoglobin 28.9 pg Mean Corpuscular Hemoglobin Concent 32.9 g/dl Platelet Count 300 K/uL Mean Platelet Volume 8.3 fL Neutrophils (%) (Auto) 72.8 % Lymphocytes (%) (Auto) 14.1 % Monocytes (%) (Auto) 8.1 % Eosinophils (%) (Auto) 4.3 % Basophils (%) (Auto) 0.4 % Neutrophils # (Auto) 6.95 K/uL Lymphocytes # (Auto) 1.35 K/uL Monocytes # (Auto) 0.77 K/uL Eosinophils # (Auto) 0.41 K/uL Basophils # (Auto) 0.04 K/uL RDW Standard Deviation 51.0 fL RDW Coefficient of Variation 15.7 % Immature Granulocyte % (Auto) 0.3 % Immature Granulocyte # (Auto) 0.03 K/uL Echinocytes 1+ Prothrombin Time 15.4 SECONDS Prothromb Time International Ratio 1.4 Sodium Level 134 mmol/L Potassium Level 3.9 mmol/L Chloride Level 101 mmol/L Carbon Dioxide Level 23 mmol/L Anion Gap 10.0 mmol/L Blood Urea Nitrogen 14 mg/dl Creatinine 0.92 mg/dl Est Creatinine Clear Calc Drug Dose 53.4 ml/min Estimated GFR () 73.6 Estimated GFR (Non- 63.5 BUN/Creatinine Ratio 15.5 Random Glucose 89 mg/dl Calcium Level 9.1 mg/dl Magnesium Level 1.6 mg/dl Assessment and Plan (1) Septic arthritis Assessment & Plan: s/p washout and aspirate, aspirate culture growing S. aureus , final pending. blood culture negative. she will again require prolonged course of IV abx. she will continue vanco for now. follow final cultures and OR culture results. (2) Fracture of neck of left femur
[2016-11-23] MEDS: VANCOMYCIN INJ 1,000 MG in SODIUM CHLORIDE 0.9% 250ML 250 ML IV SCH (11:06)
[2016-11-23] MEDS ORDERED: MAGNESIUM SULFATE 1GM / D5W 1 GM in PREMIXED IN D5W 100 ML IV ONE (11:30)
--- NOTE | 2016-11-23 11:34 | OPERATIVE REPORT ---
DATE OF OPERATION: 11/23/2016 PREOPERATIVE DIAGNOSIS: Septic arthritis, left hip with periarticular abscess. POSTOPERATIVE DIAGNOSES: Same. PROCEDURE: I&D left hip and abscess SURGEON: Dr. Shultz. CORPORATE SECURITIES RESEARCH ANALYST: Hina Roldan PA-C. COMPLICATIONS: None. PROCEDURE: Following induction of adequate general anesthesia, the patient was placed in right lateral decubitus position, a left Blanche-Langenbeck incision was made. Subcutaneous tissue was sharply dissected. Electrocautery was used for hemostasis. Fascia was incised throughout the length of the wound a the portion of the short external rotators was divided from the posterior aspect of the femur using electrocautery. A capsulotomy was performed and the fluid from the joint was cultured and pulsatile irrigation was used to thoroughly irrigate the joint. Following this, additional dissection superiorly revealed an abscess containing bloody purulent fluid. This was suctioned and additionally irrigated with pulsatile irrigation. The wound was irrigated with a total of 1200 mL of sterile saline with bacitracin. The Stimulan beads were made using gentamicin as the fluid and were packed both into the abscess as well as in the periarticular area. A Hemovac drain was placed. The wound was closed over a Hemovac drain with #1 Vicryl, subcutaneous tissue was closed with 0 Dexon, skin was closed with belkys. Sterile dressing of Adaptic, 4x4s, ABDs and foam tape was applied. The patient tolerated the procedure well. I attest to the content of the Intraoperative Record and any orders documented therein. Any exceptions are noted below. EDIED
[2016-11-23] MEDS: SODIUM CHLORIDE 0.9% 1000ML 1,000 ML IV SCH ×2 (12:20→22:11)
[2016-11-23] MEDS: ACETAMINOPHEN 500 MG TAB PO SCH ×2 (12:39→22:12)
--- NOTE | 2016-11-23 14:14 | Progress Note ---
Medicine Progress Note Date & Time of Visit: Nov 23, 2016 at 13:54. Subjective Pt was seen and examined Lying in bed with no distress Just got back from OR for her left hip incision and drainage Pt said that she feels tired and drowsy from the anesthesia denies any chest pain, palpitation, and sob Objective Last 8 Hrs Date Time Temp Pulse Resp B/P (MAP) Pulse Ox O2 Delivery O2 Flow Rate FiO2 11/23/16 12:11 88 16 139/80 (99) 95 Room Air 11/23/16 10:59 87 16 153/93 (113) 97 Nasal Cannula 2.0 11/23/16 10:30 85 16 130/73 (92) 97 Nasal Cannula 3.0 11/23/16 10:12 36.5 81 14 130/87 (101) 97 Nasal Cannula 2.0 11/23/16 09:50 36.4 78 16 136/67 98 Nasal Cannula 2 11/23/16 09:40 79 15 124/67 97 Nasal Cannula 2 11/23/16 09:30 81 16 128/74 100 Nasal Cannula 2 11/23/16 09:20 85 15 123/70 100 Oxymask 10 11/23/16 09:10 80 22 123/76 98 Oxymask 10 11/23/16 09:03 36.2 82 14 131/75 98 Oxymask 10 11/23/16 08:00 Nasal Cannula 2.0 11/23/16 06:47 37.0 92 18 151/89 (109) 93 Room Air Physical Exam: General- No acute distress Head- atraumatic Eyes- PERRL, EOMI ENT- oropharynx clear Neck- supple, no JVD Lungs- clear to auscultation Heart- regular rhythm Abdomen- normal bowel sounds, soft Extremities- no calf tenderness, dressing in left hip, palpable pulse in Neuro- alert, oriented x 3; PERRL, EOMI Skin- warm & dry Laboratory Results: Last 24 Hours Test 11/22/16 17:17 11/23/16 06:36 11/23/16 09:57 Hemoglobin 9.2 g/dL 8.1 g/dL Hematocrit 27.8 % 24.6 % White Blood Count 9.55 K/uL Red Blood Count 2.80 M/uL Mean Corpuscular Volume 87.9 fL Mean Corpuscular Hemoglobin 28.9 pg Mean Corpuscular Hemoglobin Concent 32.9 g/dl Platelet Count 300 K/uL Mean Platelet Volume 8.3 fL Neutrophils (%) (Auto) 72.8 % Lymphocytes (%) (Auto) 14.1 % Monocytes (%) (Auto) 8.1 % Eosinophils (%) (Auto) 4.3 % Basophils (%) (Auto) 0.4 % Neutrophils # (Auto) 6.95 K/uL Lymphocytes # (Auto) 1.35 K/uL Monocytes # (Auto) 0.77 K/uL Eosinophils # (Auto) 0.41 K/uL Basophils # (Auto) 0.04 K/uL RDW Standard Deviation 51.0 fL RDW Coefficient of Variation 15.7 % Immature Granulocyte % (Auto) 0.3 % Immature Granulocyte # (Auto) 0.03 K/uL Echinocytes 1+ Prothrombin Time 15.4 SECONDS Prothromb Time International Ratio 1.4 Sodium Level 134 mmol/L Potassium Level 3.9 mmol/L Chloride Level 101 mmol/L Carbon Dioxide Level 23 mmol/L Anion Gap 10.0 mmol/L Blood Urea Nitrogen 14 mg/dl Creatinine 0.92 mg/dl Est Creatinine Clear Calc Drug Dose 53.4 ml/min Estimated GFR () 73.6 Estimated GFR (Non- 63.5 BUN/Creatinine Ratio 15.5 Random Glucose 89 mg/dl Calcium Level 9.1 mg/dl Magnesium Level 1.6 mg/dl Vancomycin Level Trough 27.7 mcg/ml Date/Time Source Procedure Growth Status 11/23/16 08:01 Joint Fluid/Space (Synovial) Hip , Left Gram Stain - Final Resulted 11/23/16 08:01 Joint Fluid/Space (Synovial) Hip , Left Bacterial Culture Pending Resulted 11/23/16 08:01 Joint Fluid/Space (Synovial) Hip , Left Gram Stain - Final Resulted 11/23/16 08:01 Joint Fluid/Space (Synovial) Hip , Left Bacterial Culture Pending Resulted 11/23/16 08:01 Joint Fluid/Space (Synovial) Hip , Left Gram Stain Pending Received 11/23/16 08:01 Joint Fluid/Space (Synovial) Hip , Left Bacterial Culture Pending Received 11/23/16 08:29 Abscess Hip , Left Gram Stain Pending Received 11/23/16 08:29 Abscess Hip , Left Bacterial Culture Pending Received 11/23/16 08:29 Abscess Hip , Left Gram Stain Pending Received 11/23/16 08:29 Abscess Hip , Left Bacterial Culture Pending Received 11/23/16 08:29 Abscess Hip , Left Gram Stain - Final Resulted 11/23/16 08:29 Abscess Hip , Left Bacterial Culture Pending Resulted Assessment & Plan Septic arthritis Left hip Recently completed 6 weeks of IV abx hx MSSA sp IV Ceftriaxone and was unble to tolerate and was changed to Vancomycin CT abd/pelvis Progressive left hip septic arthritis with increase in size of the left hip effusion including a 5.7 cm fluid collection extending posterior to the hip. There is also progressive cortical destruction and subluxation of the left hip. The cortical destruction at the base of the femoral neck is concerning for an impending fracture Ortho consulted Failed conservative management with IV abx Might need surgical intervention and drainage for the hip effusion Starting on IV vanco ID on board, recommended to continue IV vanco blood cx pending Elevated CRP 11/22 Had u/s aspiration done today where 20cc purulent fluid collected and sent for culture Plan to undergo irrigation and debridement of her left hip tomorrow If pt need an extensive surgery, might need to transfer to a tertiary center for the procedure as per ortho NPO after midnight Continue IV antibiotic with Vanco ID on board 11/23 S/p irrigation and debridement of Left hip today by dr. Sofia Culture pending case discussed with ID recommended IV abx for 6 weeks Continue IV vanco consent signed for Picc line case management notified to arrange for abx infusion As per ortho once infection is cleared, she will need hip replacement that can be done at a tertiary facility Chronic Anemia Hbg 7.5 this morning will do type and cross check H/H later if h/h continues to drop, will transfuse continue monitor H/H 11/23 s/p 1 unit prbc on 11/22 hgb 8.1 today Will check h/h at 1700 continue monitor Hypertension BP stable On diltiazem Continue monitor BP PAF, Rate control On NSR, Continue cardizem Coumadin on hold/anticipated surgery INR is 1.4 today Will restart coumadin once hgb stable Chronic hyponatremia Na 134 Continue monitor BMP Hypomagnesemia Mg 1.6 today Mg replaced continue monitor mg CKD STAGE III Stable DVT px on SCDs coumadin on hold/ Anticipate surgery INR 1.4 today/ SCDs CODE STATUS FULL CODE Disposition Continue IV abx Will need to arrange for placement for abx infusion PICC line Consultants: Jean-Paul PHAM Current Inpatient Medications: Current Inpatient Medications Medications (Trade) Dose Ordered Sig/Viviane Route Start Time Stop Time Status Last Admin Dose Admin Ioversol (Optiray 320) 100 ml UD PRN IV 11/20/16 22:15 11/24/16 22:14 Acetaminophen (Tylenol Tab) 650 mg Q4H PRN PO 11/21/16 02:45 12/21/16 02:44 Future Hold Famotidine (Pepcid Tab) 20 mg QAM PO 11/21/16 09:00 12/21/16 08:59 11/22/16 09:22 20 MG Gabapentin (Neurontin Cap) 200 mg BID@0900,1400 PO 11/21/16 09:00 12/21/16 08:59 11/23/16 13:35 200 MG Gabapentin (Neurontin Cap) 300 mg HS PO 11/21/16 21:00 12/21/16 20:59 11/22/16 22:03 300 MG Hydromorphone HCl (Dilaudid Tab) 2 mg Q6H PRN PO 11/21/16 02:45 12/05/16 02:44 11/22/16 22:02 2 MG Multivitamins/ Minerals (Multivitamin W/ Minerals Tab) 1 tab DAILY PO 11/21/16 09:00 12/21/16 08:59 11/23/16 10:27 1 TAB Nortriptyline HCl (Pamelor Cap) 25 mg HS PO 11/21/16 21:00 12/21/16 20:59 11/22/16 22:01 25 MG Senna/Docusate Sodium (Senokot S Tab) 1 tab BID PO 11/21/16 09:00 12/21/16 08:59 11/23/16 10:27 1 TAB Tramadol HCl (Ultram Tab) 50 mg Q4 PRN PO 11/21/16 02:45 12/21/16 02:44 11/22/16 16:11 50 MG Travoprost (Travatan Z) 1 drops HS OPB 11/21/16 21:00 12/21/16 20:59 11/22/16 22:00 1 DROPS Ferrous Sulfate (Feosol Tab) 325 mg BIDM PO 11/21/16 08:30 12/21/16 08:29 11/23/16 10:27 325 MG Hydromorphone HCl (Dilaudid Inj) 0.5 mg Q3H PRN IV 11/21/16 02:45 12/05/16 02:44 11/22/16 19:13 0.5 MG Vancomycin HCl (Consult) 1 ea UD PRN N/A 11/21/16 03:30 12/21/16 03:29 Polyethylene (Miralax Powder Packet) 17 gm DAILY PRN PO 11/21/16 02:45 12/21/16 02:44 Ondansetron HCl (Zofran Inj) 4 mg Q6H PRN IV 11/21/16 02:45 12/21/16 02:44 Ketorolac Tromethamine (Toradol Inj) 15 mg Q6H PRN IV. 11/21/16 02:45 11/26/16 02:44 11/22/16 23:33 15 MG Sodium Biphosphate/ Sodium Phosphate (Fleet Enema) 132 ml DAILY PRN CO 11/21/16 02:45 12/21/16 02:44 Hydroxyzine HCl (Vistaril Tab) 25 mg Q6H PRN PO 11/21/16 03:00 12/21/16 02:59 11/22/16 19:14 25 MG Diltiazem HCl (TIAzac CAP) 180 mg QAM PO 11/22/16 09:00 12/21/16 08:59 11/23/16 10:26 180 MG Acetaminophen (Tylenol Tab) 1,000 mg Q8 PO 11/23/16 14:00 12/23/16 13:59 11/23/16 12:39 1,000 MG Magnesium Hydroxide (Milk Of Magnesia Susp) 30 ml Q6H PRN PO 11/23/16 09:00 12/23/16 08:59 Bisacodyl (Dulcolax Supp) 10 mg DAILY PRN CO 11/23/16 09:00 12/23/16 08:59 Docusate Sodium (coLACE CAP) 100 mg BID PO 11/23/16 09:00 12/23/16 08:59 11/23/16 10:29 100 MG Fentanyl Citrate (Fentanyl Inj) 50 mcg Q5M PRN IV 11/23/16 09:15 11/23/16 14:00 11/23/16 09:34 50 MCG Hydromorphone HCl (Dilaudid Inj) 0.5 mg Q5M PRN IV 11/23/16 09:15 11/23/16 14:00 Meperidine HCl (Demerol Inj) 25 mg Q5M PRN IV 11/23/16 09:15 11/23/16 14:00 Ondansetron HCl (Zofran Inj) 4 mg ONE PRN IV 11/23/16 09:15 11/23/16 14:00 Labetalol HCl (Normodyne IV) 5 mg Q5M PRN IV 11/23/16 09:15 11/23/16 14:00 Ephedrine Sulfate (EpHEDrine SULFATE INJ) 5 mg Q5M PRN IV 11/23/16 09:15 11/23/16 14:00 Atropine Sulfate (Atropine Sulfate 0.1MG/Ml Inj) 0.5 mg Q1M PRN IV 11/23/16 09:15 11/23/16 14:00 Sodium Chloride 1,000 ml @ 100 mls/hr Q10H IV 11/23/16 11:30 12/23/16 11:29 11/23/16 12:20 100 MLS/HR
--- NOTE | 2016-11-23 15:08 | Pharmacy Progress Note ---
Pharmacy Abx Dose Short Note Date of Service Nov 23, 2016. Assessment & Plan Assessment 70 year old female receiving Vancomycin for treatment of septic arthritis (L hip ) Day # 3 of antimicrobial therapy. Plan Vancomycin * Trough level of 27.7 mcg/mL is supratherapeutic. * Vancomycin rates have been cut in half which has effected trough levels. * Pt experiences adverse reactions per nursing at regular rates. * When vancomycin infusion extended, trough are at higher risk of being elevated. * Spoke with ID, switch to daptomycin IV 6 mg/kg. Pharmacy will continue to follow and will adjust dose/frequency as necessary. Thank you.
[2016-11-23] MEDS ORDERED: DAPTOMYCIN IV 500 MG in NSS 50ML IV SCH (16:00)
[2016-11-23] MEDS: DAPTOmycin IV 400 MG in SODIUM CHLORIDE 0.9% 50ML 50 ML IV SCH (16:47)
[2016-11-23] MEDS: NORTRIPTYLINE HCL 25 MG CAP PO SCH (22:11)
[2016-11-23] MEDS: GABAPENTIN 300 MG CAP PO SCH (22:11)
[2016-11-23] MEDS: TRAVOPROST Z 0.004% OPH SOLN 2.5 ML BTL OPB SCH (22:11)
[2016-11-23] MEDS: TRAMADOL HCL 50 MG TAB PO PRN (23:29)
[2016-11-24] VITALS (10 sets, daily range): BP systolic 106–155; BP diastolic 62–75; PULSE 71–92; TEMP 36.2–36.8; O2SAT 95–99
[2016-11-24] MEDS: hydrOXYzine HCL 25 MG TAB PO PRN (00:39)
[2016-11-24] MEDS: KETOROLAC TROMETHAMINE 15 MG/ML VIAL IV. PRN (01:19)
[2016-11-24] MEDS: HYDROmorphone INJ 0.5 MG/0.5 ML SYR IV PRN ×2 (01:44→23:24)
[2016-11-24] MEDS: ACETAMINOPHEN 500 MG TAB PO SCH ×3 (06:00→22:16)
[2016-11-24 06:31] LABS: BASO % 0.1 %; BASO ABS # 0.01 K/uL (0-0.2); EOS % 0.1 %; HEMATOCRIT 23.7 % (37-47); IG% 0.5 %; LYMPH % 11.5 %; LYMPH ABS # 1.27 K/uL (1.2-3.4); MEAN CELL VOLUME 88.4 fL (80-100); MEAN CORPUSCULAR HEMOGLOBIN 28.4 pg (25-34); MEAN CORPUSCULAR HGB CONC 32.1 g/dl (32-36); MEAN PLATELET VOLUME 8.7 fL (7.4-10.4); MONO % 4.8 %; PLATELET COUNT 376 K/uL (130-400); RED BLOOD COUNT 2.68 M/uL (4.2-5.4); WHITE BLOOD COUNT 11.09 K/uL (4.8-10.8)
[2016-11-24 06:58] LABS: BUN/CREATININE RATIO 23.4 (10-20); CALCIUM 8.9 mg/dl (8.5-10.1); CREATININE 0.9 mg/dl (0.60-1.20)
[2016-11-24 07:47] LABS: COMPLETE YES; HYPOCHROMIA PRESENT
[2016-11-24] MEDS: DILTIAZEM HCL (TIAzac) 180 MG CAPCR PO SCH (08:02)
[2016-11-24] MEDS: DOCUSATE SODIUM/SENNA 50/8.6MG TAB PO SCH ×2 (08:02→21:18)
[2016-11-24] MEDS: GABAPENTIN 100 MG CAP PO SCH ×2 (08:02→13:29)
[2016-11-24] MEDS: SODIUM CHLORIDE 0.9% 1000ML 1,000 ML IV SCH ×2 (08:02→17:35)
[2016-11-24] MEDS: FERROUS SULFATE 325 MG TAB PO SCH ×2 (08:02→17:35)
[2016-11-24] MEDS: DOCUSATE SODIUM 100 MG CAP PO SCH ×2 (08:03→21:18)
[2016-11-24] MEDS: CEROVITE ADV FORMULA TAB PO SCH (08:03)
--- NOTE | 2016-11-24 09:57 | Orthopedic Progress Note ---
Orthopedic Progress Note Date of Service Nov 24, 2016. Subjective Post OP Day: 1 Reports: feeling well, pain controlled w PO medications, Denies: complaints, chest pain, SOB, nausea / vomiting, light headedness, calf pain Additional Notes: HGb 7.6 Objective calves soft nontender, N/V intact, capillary refill less than 2 sec., dressing C /D/I, A&O x3, toes mobile Date Time Temp Pulse Resp B/P (MAP) Pulse Ox O2 Delivery O2 Flow Rate FiO2 11/24/16 07:15 36.4 79 17 121/75 (90) 99 Room Air 11/24/16 04:18 36.8 78 16 112/67 (82) 95 Room Air 11/23/16 23:34 Room Air 11/23/16 23:05 36.4 82 18 132/77 (95) 98 Room Air 11/23/16 19:27 36.5 90 18 121/75 (90) 97 Room Air 11/23/16 16:45 99 Nasal Cannula 2.0 11/23/16 15:17 36.5 93 18 125/73 (90) 99 Nasal Cannula 2.0 11/23/16 12:11 88 16 139/80 (99) 95 Room Air 11/23/16 10:59 87 16 153/93 (113) 97 Nasal Cannula 2.0 11/23/16 10:30 85 16 130/73 (92) 97 Nasal Cannula 3.0 11/23/16 10:12 36.5 81 14 130/87 (101) 97 Nasal Cannula 2.0 Laboratory Results 24 Hours: Test 11/23/16 20:26 11/24/16 05:57 Hematocrit 27.0 % 23.7 % Hemoglobin 8.7 g/dL 7.6 g/dL White Blood Count 11.09 K/uL Red Blood Count 2.68 M/uL Mean Corpuscular Volume 88.4 fL Mean Corpuscular Hemoglobin 28.4 pg Mean Corpuscular Hemoglobin Concent 32.1 g/dl Platelet Count 376 K/uL Mean Platelet Volume 8.7 fL Neutrophils (%) (Auto) 83.0 % Lymphocytes (%) (Auto) 11.5 % Monocytes (%) (Auto) 4.8 % Eosinophils (%) (Auto) 0.1 % Basophils (%) (Auto) 0.1 % Neutrophils # (Auto) 9.22 K/uL Lymphocytes # (Auto) 1.27 K/uL Monocytes # (Auto) 0.53 K/uL Eosinophils # (Auto) 0.01 K/uL Basophils # (Auto) 0.01 K/uL Assessment & Plan Assessment: POD #1, left hip I&D Plan: PT/ OT- partial WB DVT proph- Heparin D/C planning uncertain PICC placed- prob 6 wks IV anti bx per ID input, on Dapto (+staph) As per medicine- Anemia
[2016-11-24] MEDS ORDERED: MAGNESIUM SULFATE 1GM / D5W 1 GM in PREMIXED IN D5W 100 ML IV ONE (12:30)
[2016-11-24] MEDS: TRAMADOL HCL 50 MG TAB PO PRN ×2 (13:29→23:48)
[2016-11-24] MEDS: DAPTOmycin IV 400 MG in SODIUM CHLORIDE 0.9% 50ML 50 ML IV SCH (16:53)
--- NOTE | 2016-11-24 18:11 | Progress Note ---
Internal Med Progress Note Date of Service: Nov 24, 2016. Provider Documentation: SUBJECTIVE: sitting up on chair , has minimum pain on left hip with movement drain present no fever or chills 'very disappointed with ongoing infection of left hip area OBJECTIVE: Vital Signs-as noted below Exam: General- No acute distress Head- atraumatic Eyes- PERRL, EOMI ENT- oropharynx clear Neck- supple, no JVD Lungs- clear to auscultation Heart- regular rhythm Abdomen- normal bowel sounds, soft Extremities- no calf tenderness, dressing in left hip, drain present Neuro- alert, oriented x 3; PERRL, EOMI Skin- warm & dry Lab data as noted below. ASSESSMENT & PLAN: Septic arthritis Left hip Recently completed 6 weeks of IV abx hx MSSA sp IV Ceftriaxone and was unble to tolerate and was changed to Vancomycin CT abd/pelvis Progressive left hip septic arthritis with increase in size of the left hip effusion including a 5.7 cm fluid collection extending posterior to the hip. There is also progressive cortical destruction and subluxation of the left hip. The cortical destruction at the base of the femoral neck is concerning for an impending fracture Ortho consulted s/p u/s guided aspiration with 20cc purulent fluid collected and sent for culture s/p irrigation and debridement left hip dr. Sofia Surgical fluid growing Staph Aureus ID following ABx changed to Daptomycin will need 6 weeks of abx As per ortho once infection is cleared, she will need hip replacement that can be done at a tertiary facility Chronic Anemia Hb dropped to 7.6 today ordered for 1 unit of PRBC tx today repeat H&H tomorrow s/p 1 unit prbc on 11/22 follow H&H Hypertension BP stable On diltiazem Continue monitor BP Paroxysmal Afib Continue Cardizem Coumadin on hold for surgery Chronic hyponatremia Na 134 Continue monitor BMP CKD STAGE III Stable DVT px on SCDs Coumadin on hold for surgery /Anemia CODE STATUS FULL CODE Disposition Continue IV abx PICC line Consultants: Ortho ID Vital Signs: Date Time Temp Pulse Resp B/P (MAP) Pulse Ox O2 Delivery O2 Flow Rate FiO2 11/25/16 16:00 36.3 84 16 125/76 (92) 95 Room Air 11/25/16 10:09 105 162/81 (108) 11/25/16 07:45 Room Air 11/25/16 06:55 36.5 92 18 135/78 (97) 97 Room Air 11/24/16 23:15 Room Air 11/24/16 23:15 36.3 92 20 155/73 (100) 97 Room Air Lab Results: Results Past 24 Hours Test 11/25/16 05:42 Range/Units White Blood Count 11.67 4.8-10.8 K/uL Red Blood Count 3.00 4.2-5.4 M/uL Hemoglobin 8.6 12.0-16.0 g/dL Hematocrit 26.6 37-47 % Mean Corpuscular Volume 88.7 80-100 fL Mean Corpuscular Hemoglobin 28.7 25-34 pg Mean Corpuscular Hemoglobin Concent 32.3 32-36 g/dl Platelet Count 429 130-400 K/uL Mean Platelet Volume 8.6 7.4-10.4 fL Neutrophils (%) (Auto) 72.9 % Lymphocytes (%) (Auto) 17.5 % Monocytes (%) (Auto) 8.1 % Eosinophils (%) (Auto) 0.9 % Basophils (%) (Auto) 0.3 % Neutrophils # (Auto) 8.51 1.4-6.5 K/uL Lymphocytes # (Auto) 2.04 1.2-3.4 K/uL Monocytes # (Auto) 0.94 0.11-0.59 K/uL Eosinophils # (Auto) 0.11 0-0.5 K/uL Basophils # (Auto) 0.03 0-0.2 K/uL RDW Standard Deviation 52.3 36.4-46.3 fL RDW Coefficient of Variation 16.1 11.5-14.5 % Immature Granulocyte % (Auto) 0.3 % Immature Granulocyte # (Auto) 0.04 0.00-0.02 K/uL Red Blood Cell Morphology Unremarkable Sodium Level 141 136-145 mmol/L Potassium Level 3.7 3.5-5.1 mmol/L Chloride Level 108 98-107 mmol/L Carbon Dioxide Level 23 21-32 mmol/L Anion Gap 10.0 3-11 mmol/L Blood Urea Nitrogen 20 7-18 mg/dl Creatinine 0.92 0.60-1.20 mg/dl Est Creatinine Clear Calc Drug Dose 53.4 ml/min Estimated GFR () 73.6 Estimated GFR (Non- 63.5 BUN/Creatinine Ratio 21.6 10-20 Random Glucose 80 70-99 mg/dl Calcium Level 9.8 8.5-10.1 mg/dl Magnesium Level 1.5 1.8-2.4 mg/dl
[2016-11-24] MEDS: HYDROmorphone HCL 2 MG TAB PO PRN (21:17)
[2016-11-24] MEDS: TRAVOPROST Z 0.004% OPH SOLN 2.5 ML BTL OPB SCH (21:18)
[2016-11-24] MEDS: GABAPENTIN 300 MG CAP PO SCH (21:18)
[2016-11-24] MEDS: NORTRIPTYLINE HCL 25 MG CAP PO SCH (21:19)
[2016-11-25] MEDS: TRAMADOL HCL 50 MG TAB PO PRN ×3 (05:22→18:04)
[2016-11-25 06:06] LABS: BASO % 0.3 %; BASO ABS # 0.03 K/uL (0-0.2); EOS % 0.9 %; HEMATOCRIT 26.6 % (37-47); IG% 0.3 %; LYMPH % 17.5 %; LYMPH ABS # 2.04 K/uL (1.2-3.4); MEAN CELL VOLUME 88.7 fL (80-100); MEAN CORPUSCULAR HEMOGLOBIN 28.7 pg (25-34); MEAN CORPUSCULAR HGB CONC 32.3 g/dl (32-36); MEAN PLATELET VOLUME 8.6 fL (7.4-10.4); MONO % 8.1 %; NEUT % 72.9 %; PLATELET COUNT 429 K/uL (130-400); WHITE BLOOD COUNT 11.67 K/uL (4.8-10.8)
[2016-11-25] MEDS: ACETAMINOPHEN 500 MG TAB PO SCH ×3 (06:10→21:33)
[2016-11-25 06:34] LABS: COMPLETE YES
[2016-11-25 06:35] LABS: BUN/CREATININE RATIO 21.6 (10-20); CALCIUM 9.8 mg/dl (8.5-10.1); CREATININE 0.92 mg/dl (0.60-1.20); MAGNESIUM 1.5 mg/dl (1.8-2.4); POTASSIUM 3.7 mmol/L (3.5-5.1)
[2016-11-25 06:55] VITALS: BP 135/78; PULSE 92; TEMP 36.5; O2SAT 97
--- NOTE | 2016-11-25 08:39 | Orthopedic Progress Note ---
Orthopedic Progress Note Date of Service Nov 25, 2016. Subjective Post OP Day: 2 Reports: feeling well, pain controlled w PO medications, Denies: complaints, chest pain, SOB, nausea / vomiting, light headedness, calf pain Additional Notes: Hgb improved to 8.6 All cxs, + staph Objective calves soft nontender, N/V intact, capillary refill less than 2 sec., dressing C /D/I, A&O x3, toes mobile Date Time Temp Pulse Resp B/P (MAP) Pulse Ox O2 Delivery O2 Flow Rate FiO2 11/25/16 06:55 36.5 92 18 135/78 (97) 97 Room Air 11/24/16 23:15 Room Air 11/24/16 23:15 36.3 92 20 155/73 (100) 97 Room Air 11/24/16 16:51 36.4 74 16 121/68 97 11/24/16 15:43 36.4 71 16 124/69 96 11/24/16 15:35 Room Air 11/24/16 14:44 36.4 73 16 117/71 96 11/24/16 14:11 36.7 76 16 114/68 97 11/24/16 14:03 36.4 80 18 106/65 96 11/24/16 14:00 36.4 72 17 114/62 97 11/24/16 13:44 36.2 80 18 115/68 Laboratory Results 24 Hours: Test 11/25/16 05:42 White Blood Count 11.67 K/uL Red Blood Count 3.00 M/uL Hemoglobin 8.6 g/dL Hematocrit 26.6 % Mean Corpuscular Volume 88.7 fL Mean Corpuscular Hemoglobin 28.7 pg Mean Corpuscular Hemoglobin Concent 32.3 g/dl Platelet Count 429 K/uL Mean Platelet Volume 8.6 fL Neutrophils (%) (Auto) 72.9 % Lymphocytes (%) (Auto) 17.5 % Monocytes (%) (Auto) 8.1 % Eosinophils (%) (Auto) 0.9 % Basophils (%) (Auto) 0.3 % Neutrophils # (Auto) 8.51 K/uL Lymphocytes # (Auto) 2.04 K/uL Monocytes # (Auto) 0.94 K/uL Eosinophils # (Auto) 0.11 K/uL Basophils # (Auto) 0.03 K/uL Assessment & Plan Assessment: POD #2, left hip I&D Plan: PT/ OT- partial WB w walker DVT proph- Heparin D/C planning as per primary team PICC placed- prob 6 wks IV anti bx per ID input, on Dapto (+staph) As per medicine- Anemia, improved.
--- NOTE | 2016-11-25 08:44 | Consultant Recommendations ---
Semi Conductor Assembler Recommendations Date of Service Nov 25, 2016. Semi Conductor Assembler Recommendations Left Hip I&D Partial weight bearing Left leg with walker. IV anti bx as per infectious disease and medicine, at least 6 wks. Keep incision clean, dry and in tact with daily dressing changes. Ice and pain medications as needed. Follow up with Dr. Shultz 10-12 days post op, call [facility] at [phone] for appt.
[2016-11-25] MEDS: DOCUSATE SODIUM/SENNA 50/8.6MG TAB PO SCH ×2 (09:00→20:10)
[2016-11-25] MEDS: HYDROmorphone HCL 2 MG TAB PO PRN (10:01)
[2016-11-25] MEDS: FERROUS SULFATE 325 MG TAB PO SCH ×2 (10:01→18:04)
[2016-11-25] MEDS: DOCUSATE SODIUM 100 MG CAP PO SCH ×2 (10:05→20:10)
[2016-11-25] MEDS: GABAPENTIN 100 MG CAP PO SCH ×2 (10:08→14:09)
[2016-11-25 10:09] VITALS: BP 162/81; PULSE 105
[2016-11-25] MEDS: DILTIAZEM HCL (TIAzac) 180 MG CAPCR PO SCH (10:09)
[2016-11-25] MEDS: CEROVITE ADV FORMULA TAB PO SCH (10:10)
[2016-11-25] MEDS: FAMOTIDINE 20 MG TAB PO SCH (14:08)
[2016-11-25] MEDS: HYDROmorphone INJ 0.5 MG/0.5 ML SYR IV PRN ×2 (14:13→21:35)
[2016-11-25 16:00] VITALS: BP 125/76; PULSE 84; TEMP 36.3; O2SAT 95
[2016-11-25] MEDS: DAPTOmycin IV 400 MG in SODIUM CHLORIDE 0.9% 50ML 50 ML IV SCH (16:07)
[2016-11-25] MEDS: MAGNESIUM SULFATE 1GM / D5W 1 GM in PREMIXED IN D5W 100 ML IV SCH ×2 (19:03→20:06)
[2016-11-25] MEDS: GABAPENTIN 300 MG CAP PO SCH (20:09)
[2016-11-25] MEDS: TRAVOPROST Z 0.004% OPH SOLN 2.5 ML BTL OPB SCH (20:10)
[2016-11-25] MEDS: NORTRIPTYLINE HCL 25 MG CAP PO SCH (20:10)
--- NOTE | 2016-11-25 20:24 | Progress Note ---
Internal Med Progress Note Date of Service: Nov 25, 2016. Provider Documentation: SUBJECTIVE: drained removed form left hip surgical site having more pain and discomfort at that area no fever or chills OBJECTIVE: Vital Signs-as noted below Exam: General- No acute distress Head- atraumatic Eyes- PERRL, EOMI ENT- oropharynx clear Neck- supple, no JVD Lungs- clear to auscultation Heart- regular rhythm Abdomen- normal bowel sounds, soft Extremities- no calf tenderness, dressing in left hip, Neuro- alert, oriented x 3; PERRL, EOMI Skin- warm & dry Lab data as noted below. ASSESSMENT & PLAN: INFECTED Left hip /LEFT HIP SEPTIC ARTHRITIS Recently completed 6 weeks of IV abx hx MSSA sp IV Ceftriaxone and was unble to tolerate and was changed to Vancomycin CT abd/pelvis Progressive left hip septic arthritis with increase in size of the left hip effusion including a 5.7 cm fluid collection extending posterior to the hip. There is also progressive cortical destruction and subluxation of the left hip. The cortical destruction at the base of the femoral neck is concerning for an impending fracture Ortho consulted s/p u/s guided aspiration with 20cc purulent fluid collected and sent for culture s/p irrigation and debridement left hip dr. Sofia Surgical fluid growing Staph Aureus ID following ABx changed to Daptomycin will need 6 weeks of abx evaluated by Ortho today stable to be dc will need Ortho follow up in 2 weeks for removal of belkys As per ortho once infection is cleared, she will need hip replacement that can be done at a tertiary facility Chronic Anemia hb improved 8.6 s/p 1 unit of PRBC tx yesterday follow H&H Hypertension BP stable On diltiazem Continue monitor BP Paroxysmal Afib Continue Cardizem Coumadin on hold for surgery will repeat H&H in AM if not drop in HB will resume Coumadin Chronic hyponatremia Na 134 Continue monitor BMP CKD STAGE III Stable DVT px on SCDs Coumadin will be resumed tomorrow CODE STATUS FULL CODE Disposition will need rehab for IV Abx and left hip local wound care was at [facility] in recently social service consulted for discharge planning pt can be tx to SNF in next 24-48 hrs Consultants: Ortho ID Vital Signs: Date Time Temp Pulse Resp B/P (MAP) Pulse Ox O2 Delivery O2 Flow Rate FiO2 11/25/16 19:05 Room Air 11/25/16 16:00 36.3 84 16 125/76 (92) 95 Room Air 11/25/16 10:09 105 162/81 (108) 11/25/16 07:45 Room Air 11/25/16 06:55 36.5 92 18 135/78 (97) 97 Room Air 11/24/16 23:15 Room Air 11/24/16 23:15 36.3 92 20 155/73 (100) 97 Room Air Lab Results: Results Past 24 Hours Test 11/25/16 05:42 Range/Units White Blood Count 11.67 4.8-10.8 K/uL Red Blood Count 3.00 4.2-5.4 M/uL Hemoglobin 8.6 12.0-16.0 g/dL Hematocrit 26.6 37-47 % Mean Corpuscular Volume 88.7 80-100 fL Mean Corpuscular Hemoglobin 28.7 25-34 pg Mean Corpuscular Hemoglobin Concent 32.3 32-36 g/dl Platelet Count 429 130-400 K/uL Mean Platelet Volume 8.6 7.4-10.4 fL Neutrophils (%) (Auto) 72.9 % Lymphocytes (%) (Auto) 17.5 % Monocytes (%) (Auto) 8.1 % Eosinophils (%) (Auto) 0.9 % Basophils (%) (Auto) 0.3 % Neutrophils # (Auto) 8.51 1.4-6.5 K/uL Lymphocytes # (Auto) 2.04 1.2-3.4 K/uL Monocytes # (Auto) 0.94 0.11-0.59 K/uL Eosinophils # (Auto) 0.11 0-0.5 K/uL Basophils # (Auto) 0.03 0-0.2 K/uL RDW Standard Deviation 52.3 36.4-46.3 fL RDW Coefficient of Variation 16.1 11.5-14.5 % Immature Granulocyte % (Auto) 0.3 % Immature Granulocyte # (Auto) 0.04 0.00-0.02 K/uL Red Blood Cell Morphology Unremarkable Sodium Level 141 136-145 mmol/L Potassium Level 3.7 3.5-5.1 mmol/L Chloride Level 108 98-107 mmol/L Carbon Dioxide Level 23 21-32 mmol/L Anion Gap 10.0 3-11 mmol/L Blood Urea Nitrogen 20 7-18 mg/dl Creatinine 0.92 0.60-1.20 mg/dl Est Creatinine Clear Calc Drug Dose 53.4 ml/min Estimated GFR () 73.6 Estimated GFR (Non- 63.5 BUN/Creatinine Ratio 21.6 10-20 Random Glucose 80 70-99 mg/dl Calcium Level 9.8 8.5-10.1 mg/dl Magnesium Level 1.5 1.8-2.4 mg/dl
[2016-11-25 22:53] VITALS: BP 134/72; PULSE 84; TEMP 36.5; O2SAT 93
[2016-11-26] MEDS: HYDROmorphone HCL 2 MG TAB PO PRN ×4 (03:11→23:26)
[2016-11-26] MEDS: ACETAMINOPHEN 500 MG TAB PO SCH ×3 (05:29→21:53)
[2016-11-26 05:31] LABS: HEMATOCRIT 27.2 % (37-47); MEAN CELL VOLUME 89.2 fL (80-100); MEAN CORPUSCULAR HEMOGLOBIN 28.9 pg (25-34); MEAN CORPUSCULAR HGB CONC 32.4 g/dl (32-36); MEAN PLATELET VOLUME 8.2 fL (7.4-10.4); PLATELET COUNT 414 K/uL (130-400); RED BLOOD COUNT 3.05 M/uL (4.2-5.4); WHITE BLOOD COUNT 10.28 K/uL (4.8-10.8)
[2016-11-26 06:07] LABS: BUN/CREATININE RATIO 25.9 (10-20); CALCIUM 9.7 mg/dl (8.5-10.1); CREATININE 0.92 mg/dl (0.60-1.20); MAGNESIUM 1.6 mg/dl (1.8-2.4); POTASSIUM 4.2 mmol/L (3.5-5.1)
[2016-11-26 06:53] VITALS: BP 157/80; PULSE 98; TEMP 36.8; O2SAT 95
[2016-11-26] MEDS: TRAMADOL HCL 50 MG TAB PO PRN ×3 (08:19→21:54)
[2016-11-26] MEDS: DOCUSATE SODIUM 100 MG CAP PO SCH ×2 (08:20→21:53)
[2016-11-26] MEDS: FERROUS SULFATE 325 MG TAB PO SCH ×2 (08:20→18:32)
[2016-11-26] MEDS: CEROVITE ADV FORMULA TAB PO SCH (08:20)
[2016-11-26] MEDS: GABAPENTIN 100 MG CAP PO SCH ×2 (08:21→13:34)
[2016-11-26 08:23] VITALS: BP 157/82; PULSE 93
[2016-11-26] MEDS: DILTIAZEM HCL (TIAzac) 180 MG CAPCR PO SCH (08:24)
[2016-11-26] MEDS: FAMOTIDINE 20 MG TAB PO SCH (09:00)
[2016-11-26] MEDS: DOCUSATE SODIUM/SENNA 50/8.6MG TAB PO SCH ×2 (09:00→21:53)
--- NOTE | 2016-11-26 10:31 | Progress Note ---
Subjective Date of Service: Nov 26, 2016. Subjective Pt evaluation today including: conversation w/ patient, physical exam, chart review, lab review pt seen in follow up, had red jez syndrome with vanco, increased itching, now on dapto, tolerating well. All OR culture with MSSA, blood cultures negative and final. no f/c. hip pain but improved. no drainage, drain removed yesterday. to be d/c to snf soon with plans to follow in [place] for hip replacement in the future. all remaining ros reviewed and are negative. Problem List Medical Problems: (1) Abnormal white blood cell count Status: Acute (2) Anemia Status: Acute (3) Dehydration Status: Acute (4) Effusion, left hip Status: Acute (5) Fall Status: Acute (6) Fall Status: Acute (7) Fracture of neck of left femur Status: Acute (8) Hypomagnesemia Status: Acute (9) Hyponatremia Status: Acute (10) Hyponatremia Status: Acute (11) Left hip pain Status: Acute (12) Lumbar contusion Status: Acute (13) Lumbar contusion Status: Acute (14) Pelvic fracture Status: Acute (15) Pelvic fracture Status: Acute (16) Sepsis Status: Acute (17) Septic arthritis Status: Acute (18) Tachycardia Status: Acute (19) UTI (urinary tract infection) Status: Acute Objective Vital Signs Date Time Temp Pulse Resp B/P (MAP) Pulse Ox O2 Delivery O2 Flow Rate FiO2 11/26/16 08:23 93 157/82 (107) 11/26/16 07:30 Room Air 11/26/16 06:53 36.8 98 18 157/80 (105) 95 Room Air 11/25/16 22:53 36.5 84 16 134/72 (92) 93 Room Air 11/25/16 19:05 Room Air 11/25/16 16:00 36.3 84 16 125/76 (92) 95 Room Air Physical Exam General Appearance: WD/WN, no apparent distress Eyes: normal inspection, EOMI Neck: supple Respiratory/Chest: lungs clear, normal breath sounds, no respiratory distress Cardiovascular: regular rate, rhythm, no edema Abdomen: non tender, soft Extremities: non-tender, normal inspection, no pedal edema Neurologic/Psychiatric: alert, oriented x 3 Skin: normal color, warm/dry, no rash Comments: dressing c/d/i no surrounding erythema Laboratory Results Item Value Date Time Gram Stain - Final Resulted 11/23/16 0829 Abscess Hip , Left Gram Stain - Final Resulted 11/23/16 0829 Abscess Hip , Left Gram Stain - Final Resulted 11/23/16 0829 Abscess Hip , Left Gram Stain - Final Resulted 11/23/16 0801 Joint Fluid/Space (Synovial) Hip , Left Gram Stain - Final Resulted 11/23/16 0801 Joint Fluid/Space (Synovial) Hip , Left Gram Stain - Final Resulted 11/23/16 08 Joint Fluid/Space (Synovial) Hip , Left Gram Stain - Final Resulted 11/22/16 0000 Joint Fluid/Space (Synovial) Hip , Left Blood Culture - Final Complete 11/20/16 2300 Blood NO GROWTH Blood Culture - Final Complete 11/20/16 2255 Blood NO GROWTH Item Value Date Time Gram Stain - Final Resulted 11/23/16 0829 Abscess Hip , Left Gram Stain - Final Resulted 11/23/16 0829 Abscess Hip , Left Gram Stain - Final Resulted 11/23/16 0829 Abscess Hip , Left Gram Stain - Final Resulted 11/23/16 0801 Joint Fluid/Space (Synovial) Hip , Left Gram Stain - Final Resulted 11/23/16 0801 Joint Fluid/Space (Synovial) Hip , Left Gram Stain - Final Resulted 11/23/16 0801 Joint Fluid/Space (Synovial) Hip , Left Gram Stain - Final Resulted 11/22/16 0000 Joint Fluid/Space (Synovial) Hip , Left Blood Culture - Final Complete 11/20/16 2300 Blood NO GROWTH Blood Culture - Final Complete 11/20/16 2255 Blood NO GROWTH Last 24 Hours Test 11/26/16 05:25 White Blood Count 10.28 K/uL Red Blood Count 3.05 M/uL Hemoglobin 8.8 g/dL Hematocrit 27.2 % Mean Corpuscular Volume 89.2 fL Mean Corpuscular Hemoglobin 28.9 pg Mean Corpuscular Hemoglobin Concent 32.4 g/dl RDW Standard Deviation 53.3 fL RDW Coefficient of Variation 16.4 % Platelet Count 414 K/uL Mean Platelet Volume 8.2 fL Sodium Level 138 mmol/L Potassium Level 4.2 mmol/L Chloride Level 107 mmol/L Carbon Dioxide Level 24 mmol/L Anion Gap 7.0 mmol/L Blood Urea Nitrogen 24 mg/dl Creatinine 0.92 mg/dl Est Creatinine Clear Calc Drug Dose 53.4 ml/min Estimated GFR () 73.6 Estimated GFR (Non- 63.5 BUN/Creatinine Ratio 25.9 Random Glucose 81 mg/dl Calcium Level 9.7 mg/dl Magnesium Level 1.6 mg/dl Assessment and Plan (1) Septic arthritis Assessment & Plan: will continue dapto, will need 6 weeks from OR date, tentative stop 01/04. will need weekly cbc, cmp, esr and cpk while on abx. follow up with ID in 2 weeks. long discussion with patient regarding terminal makeup operator care at time of hip replacement, suspect she will need to transition to terminal makeup operator po suppression. will follow in office. ok for d/c from ID standpoint. (2) Fracture of neck of left femur
[2016-11-26] MEDS: HYDROmorphone INJ 0.5 MG/0.5 ML SYR IV PRN ×2 (11:10→18:33)
--- NOTE | 2016-11-26 13:15 | Orthopedic Progress Note ---
Orthopedic Progress Note Date of Service Nov 26, 2016. Subjective Post OP Day: 3 Reports: feeling well, Denies: chest pain, SOB, nausea / vomiting, light headedness, calf pain Objective calves soft nontender, N/V intact, hip located, dressing C/D/I (scant serous drainage), A&O x3, toes mobile Date Time Temp Pulse Resp B/P (MAP) Pulse Ox O2 Delivery O2 Flow Rate FiO2 11/26/16 08:23 93 157/82 (107) 11/26/16 07:30 Room Air 11/26/16 06:53 36.8 98 18 157/80 (105) 95 Room Air 11/25/16 22:53 36.5 84 16 134/72 (92) 93 Room Air 11/25/16 19:05 Room Air 11/25/16 16:00 36.3 84 16 125/76 (92) 95 Room Air Laboratory Results 24 Hours: Test 11/26/16 05:25 Hematocrit 27.2 % Hemoglobin 8.8 g/dL Additional Notes: GRAM STAIN Final 11/22/16 RESULT MODERATE GRAM POSITIVE COCCI MANY WBCs SEEN APPROXIMATELY 80% PMNs/20% MONONUCLEAR CELLS. OR AER/ALETA CULT Preliminary 11/26/16-1137 Organism 1 STAPHYLOCOCCUS AUREUS QUANITY MODERATE SENS SENSITIVITY TO FOLLOW 1. STAPHYLOCOCCUS AUREUS Target Route Dose RX AB Cost M.I.C. IQ ------ ----- ------ -- ------ -------- - ------ TRIMET/SULFA S <=0.5/ 9.5 * OXACILLIN S 0.5 VANCOMYCIN S 2 ERYTHROMYCIN S <=0.5 TETRACYCLINE S <=4 CLINDAMYCIN S <=0.5 DAPTOMYCIN S 1 S = SENSITIVE I = INTERMEDIATE R = RESISTANT Assessment & Plan Assessment: POD #3, left hip I&D Plan: PT/ OT- partial WB w walker DVT proph- Heparin D/C planning as per primary team PICC placed- prob 6 wks IV anti bx per ID input, on Dapto (+staph) As per medicine- Anemia, improved. APPLY PREVENA DRESSING TODAY. ORTHOPEDICALLY STABLE. FOLLOW UP IN 10-14 DAYS FOR WOUND CHECK AND STAPLE REMOVAL. ORTHO WILL SIGN OFF.
[2016-11-26] MEDS: DAPTOmycin IV 400 MG in SODIUM CHLORIDE 0.9% 50ML 50 ML IV SCH (15:28)
[2016-11-26 15:38] VITALS: BP 121/69; PULSE 84; TEMP 36.6; O2SAT 94
--- NOTE | 2016-11-26 16:28 | Anesthesiology Progress Note ---
Anesthesia Post Op Note Date & Time Nov 26, 2016 at 16:28 Vital Signs Pain Intensity: 6.0 Vital Signs Past 12 Hours Date Time Temp Pulse Resp B/P (MAP) Pulse Ox O2 Delivery O2 Flow Rate FiO2 11/26/16 15:38 36.6 84 18 121/69 (86) 94 Room Air 11/26/16 08:23 93 157/82 (107) 11/26/16 07:30 Room Air 11/26/16 06:53 36.8 98 18 157/80 (105) 95 Room Air Notes Mental Status: alert / awake / arousable, participated in evaluation Pt Amnestic to Procedure: Yes Nausea / Vomiting: adequately controlled Pain: adequately controlled Airway Patency, RR, SpO2: stable & adequate BP & HR: stable & adequate Hydration State: stable & adequate Anesthetic Complications: no major complications apparent
[2016-11-26 21:19] VITALS: O2SAT 100
--- NOTE | 2016-11-26 21:38 | Progress Note ---
Internal Med Progress Note Date of Service: Nov 26, 2016. Provider Documentation: SUBJECTIVE: no pain on left hip site no fever or chills worsening of bilat ankle edema teds ordered pt asked to keep legs elevated no diarrhea , no nausea or vomiting OBJECTIVE: Vital Signs-as noted below Exam: General- No acute distress Head- atraumatic Eyes- PERRL, EOMI ENT- oropharynx clear Neck- supple, no JVD Lungs- clear to auscultation Heart- regular rhythm Abdomen- normal bowel sounds, soft Extremities- no calf tenderness, dressing in left hip, Neuro- alert, oriented x 3; PERRL, EOMI Skin- warm & dry Lab data as noted below. ASSESSMENT & PLAN: INFECTED Left hip /LEFT HIP SEPTIC ARTHRITIS Recently completed 6 weeks of IV abx hx MSSA sp IV Ceftriaxone and was unble to tolerate and was changed to Vancomycin CT abd/pelvis Progressive left hip septic arthritis with increase in size of the left hip effusion including a 5.7 cm fluid collection extending posterior to the hip. There is also progressive cortical destruction and subluxation of the left hip. The cortical destruction at the base of the femoral neck is concerning for an impending fracture Ortho consulted s/p u/s guided aspiration with 20cc purulent fluid collected and sent for culture s/p irrigation and debridement left hip dr. Sofia Surgical fluid growing Staph Aureus ID following ABx changed to Daptomycin will need 6 weeks of abx will need Ortho follow up in 2 weeks for removal of belkys As per ortho once infection is cleared, she will need hip replacement that can be done at a tertiary facility Chronic Anemia hb remains stable s/p 1 unit of PRBC tx follow H&H Hypertension BP stable On diltiazem Paroxysmal Afib Continue Cardizem Coumadin resumed LOW MG : replaced CKD STAGE III Stable DVT px on SCDs Coumadin resumed CODE STATUS FULL CODE Disposition will need rehab for IV Abx and left hip local wound care referral made to [facility] possible tx to [facility] tomorrow Vital Signs: Date Time Temp Pulse Resp B/P (MAP) Pulse Ox O2 Delivery O2 Flow Rate FiO2 11/26/16 21:19 100 Room Air 11/26/16 15:38 36.6 84 18 121/69 (86) 94 Room Air 11/26/16 15:25 Room Air 11/26/16 08:23 93 157/82 (107) 11/26/16 07:30 Room Air 11/26/16 06:53 36.8 98 18 157/80 (105) 95 Room Air 11/25/16 22:53 36.5 84 16 134/72 (92) 93 Room Air Lab Results: Results Past 24 Hours Test 11/26/16 05:25 Range/Units White Blood Count 10.28 4.8-10.8 K/uL Red Blood Count 3.05 4.2-5.4 M/uL Hemoglobin 8.8 12.0-16.0 g/dL Hematocrit 27.2 37-47 % Mean Corpuscular Volume 89.2 80-100 fL Mean Corpuscular Hemoglobin 28.9 25-34 pg Mean Corpuscular Hemoglobin Concent 32.4 32-36 g/dl RDW Standard Deviation 53.3 36.4-46.3 fL RDW Coefficient of Variation 16.4 11.5-14.5 % Platelet Count 414 130-400 K/uL Mean Platelet Volume 8.2 7.4-10.4 fL Sodium Level 138 136-145 mmol/L Potassium Level 4.2 3.5-5.1 mmol/L Chloride Level 107 98-107 mmol/L Carbon Dioxide Level 24 21-32 mmol/L Anion Gap 7.0 3-11 mmol/L Blood Urea Nitrogen 24 7-18 mg/dl Creatinine 0.92 0.60-1.20 mg/dl Est Creatinine Clear Calc Drug Dose 53.4 ml/min Estimated GFR () 73.6 Estimated GFR (Non- 63.5 BUN/Creatinine Ratio 25.9 10-20 Random Glucose 81 70-99 mg/dl Calcium Level 9.7 8.5-10.1 mg/dl Magnesium Level 1.6 1.8-2.4 mg/dl Microbiology Results 11/26/16 C.difficile Toxin B Gene (PCR) - Final, Complete No C. difficile toxin B gene detected
[2016-11-26] MEDS ORDERED: TRAM-10 PO (21:43)
[2016-11-26] MEDS ORDERED: HYDR2TAB48 PO (21:43)
[2016-11-26] MEDS ORDERED: BISACODYL 10 MG SUPP PR PRN (21:45)
[2016-11-26] MEDS: TRAVOPROST Z 0.004% OPH SOLN 2.5 ML BTL OPB SCH (21:53)
[2016-11-26] MEDS: NORTRIPTYLINE HCL 25 MG CAP PO SCH (21:53)
[2016-11-26] MEDS: GABAPENTIN 300 MG CAP PO SCH (21:54)
[2016-11-26] MEDS ORDERED: hydrOXYzine HCL 25 MG TAB PO SCH (22:00)
[2016-11-26] MEDS: MAGNESIUM SULFATE 1GM / D5W 1 GM in PREMIXED IN D5W 100 ML IV SCH ×2 (22:03→23:27)
[2016-11-26 23:23] VITALS: BP 139/77; PULSE 106; TEMP 36.9; O2SAT 95
[2016-11-27] MEDS: ACETAMINOPHEN 500 MG TAB PO SCH ×3 (05:40→21:11)
[2016-11-27] MEDS: HYDROmorphone HCL 2 MG TAB PO PRN ×3 (05:41→18:23)
[2016-11-27 06:05] LABS: BUN/CREATININE RATIO 25.1 (10-20); CALCIUM 9.8 mg/dl (8.5-10.1); CREATININE 0.89 mg/dl (0.60-1.20); MAGNESIUM 1.5 mg/dl (1.8-2.4)
[2016-11-27 07:01] VITALS: BP 125/74; PULSE 96; TEMP 36.8; O2SAT 96
[2016-11-27] MEDS: DOCUSATE SODIUM 100 MG CAP PO SCH ×2 (08:36→21:09)
[2016-11-27] MEDS: GABAPENTIN 100 MG CAP PO SCH ×2 (08:36→13:31)
[2016-11-27] MEDS: FERROUS SULFATE 325 MG TAB PO SCH ×2 (08:36→17:03)
[2016-11-27] MEDS: CEROVITE ADV FORMULA TAB PO SCH (08:36)
[2016-11-27] MEDS: DOCUSATE SODIUM/SENNA 50/8.6MG TAB PO SCH ×2 (08:37→21:09)
[2016-11-27] MEDS: FAMOTIDINE 20 MG TAB PO SCH (08:37)
[2016-11-27 08:39] VITALS: BP 135/76; PULSE 96
[2016-11-27] MEDS: DILTIAZEM HCL (TIAzac) 180 MG CAPCR PO SCH (08:40)
[2016-11-27] MEDS: TRAMADOL HCL 50 MG TAB PO PRN ×3 (09:22→21:57)
[2016-11-27 14:46] VITALS: BP 126/67; PULSE 79; TEMP 36.8; O2SAT 93
[2016-11-27] MEDS: DAPTOmycin IV 400 MG in SODIUM CHLORIDE 0.9% 50ML 50 ML IV SCH (15:46)
[2016-11-27] MEDS: MAGNESIUM SULFATE 1GM / D5W 1 GM in PREMIXED IN D5W 100 ML IV SCH ×3 (17:03→19:38)
[2016-11-27] MEDS: WARFARIN SOD 2.5 MG TAB PO SCH (17:03)
--- NOTE | 2016-11-27 18:26 | Progress Note ---
Internal Med Progress Note Date of Service: Nov 27, 2016. Provider Documentation: SUBJECTIVE: no change in status has minimum pain, no fever or chills waiting for placement -will need superintendent terminal 6 weeks of IV Abx OBJECTIVE: Vital Signs-as noted below Exam: General- No acute distress Head- atraumatic Eyes- PERRL, EOMI ENT- oropharynx clear Neck- supple, no JVD Lungs- clear to auscultation Heart- regular rhythm Abdomen- normal bowel sounds, soft Extremities- no calf tenderness, dressing in left hip, Neuro- alert, oriented x 3; PERRL, EOMI Skin- warm & dry Lab data as noted below. ASSESSMENT & PLAN: INFECTED Left hip /LEFT HIP SEPTIC ARTHRITIS Recently completed 6 weeks of IV abx hx MSSA sp IV Ceftriaxone and was unble to tolerate and was changed to Vancomycin CT abd/pelvis Progressive left hip septic arthritis with increase in size of the left hip effusion including a 5.7 cm fluid collection extending posterior to the hip. There is also progressive cortical destruction and subluxation of the left hip. The cortical destruction at the base of the femoral neck is concerning for an impending fracture Ortho consulted s/p u/s guided aspiration with 20cc purulent fluid collected and sent for culture s/p irrigation and debridement left hip dr. Sofia on 11/23/16 left hip joint fluid /synoviall fluid growing Staph Aureus MSSA ID following -appreciate input ABx changed to Daptomycin -6mg /Kg daily -on 400mg IV Daily dose ID recommend for 6 weeks of IV Daptomycin form OR Date , tentative last day of tx on 01/04/17 pt will need weekly Labs : CBC. CMP . ESR . 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 Ortho follow up in 2 weeks for removal of belkys As per ortho once infection is cleared, she will need hip replacement that can be done at a tertiary facility Chronic Anemia hb remains stable s/p 1 unit of PRBC tx Hypertension BP stable On diltiazem Paroxysmal Afib Continue Cardizem Coumadin resumed LOW MG : replaced CKD STAGE III Stable DVT px on SCDs Coumadin resumed CODE STATUS FULL CODE Disposition will need rehab for IV Abx and left hip local wound care referral made to [facility] pt was initially denies of [facility] for acute rehab Peer to Peer done with [facility] , explained that pt was in SNF with vancomycin prior to [facility] admission the infection remained the same will benefit form acute rehab with IV Daptomycin and wound care at [facility] as the infection gets cleared -pt will need total hip replacement at Tertiary care [facility] given the complicated infection of the pt and repeated admission -pt is approved for acute rehab at [facility] by her [facility] insurance CM updated pt to be discharged tomorrow to [facility] 11/28/16 Vital Signs: Date Time Temp Pulse Resp B/P (MAP) Pulse Ox O2 Delivery O2 Flow Rate FiO2 11/28/16 08:44 103 129/75 (93) 11/28/16 07:10 Room Air 11/28/16 06:57 36.8 99 16 137/79 (98) 95 Room Air 11/28/16 00:30 Room Air 11/27/16 23:00 36.8 98 16 129/75 (93) 96 Room Air 11/27/16 15:45 Room Air 11/27/16 14:46 36.8 79 16 126/67 (86) 93 Room Air Lab Results: Results Past 24 Hours Test 11/28/16 05:26 Range/Units Sodium Level 136 136-145 mmol/L Potassium Level 4.2 3.5-5.1 mmol/L Chloride Level 103 98-107 mmol/L Carbon Dioxide Level 25 21-32 mmol/L Anion Gap 8.0 3-11 mmol/L Blood Urea Nitrogen 22 7-18 mg/dl Creatinine 0.82 0.60-1.20 mg/dl Est Creatinine Clear Calc Drug Dose 59.9 ml/min Estimated GFR () 84.6 Estimated GFR (Non- 73.0 BUN/Creatinine Ratio 26.7 10-20 Random Glucose 78 70-99 mg/dl Calcium Level 9.7 8.5-10.1 mg/dl Magnesium Level 1.8 1.8-2.4 mg/dl
[2016-11-27] MEDS: GABAPENTIN 300 MG CAP PO SCH (21:09)
[2016-11-27] MEDS: TRAVOPROST Z 0.004% OPH SOLN 2.5 ML BTL OPB SCH (21:09)
[2016-11-27] MEDS: NORTRIPTYLINE HCL 25 MG CAP PO SCH (21:10)
[2016-11-27 23:00] VITALS: BP 129/75; PULSE 98; TEMP 36.8; O2SAT 96
[2016-11-28] MEDS: HYDROmorphone HCL 2 MG TAB PO PRN ×3 (00:29→16:39)
[2016-11-28] MEDS: ACETAMINOPHEN 500 MG TAB PO SCH ×2 (05:17→14:12)
[2016-11-28] MEDS: TRAMADOL HCL 50 MG TAB PO PRN ×3 (05:18→15:32)
[2016-11-28 06:57] VITALS: BP 137/79; PULSE 99; TEMP 36.8; O2SAT 95
[2016-11-28 07:08] LABS: BUN/CREATININE RATIO 26.7 (10-20); CALCIUM 9.7 mg/dl (8.5-10.1); CREATININE 0.82 mg/dl (0.60-1.20); MAGNESIUM 1.8 mg/dl (1.8-2.4); POTASSIUM 4.2 mmol/L (3.5-5.1)
[2016-11-28 08:44] VITALS: BP 129/75; PULSE 103
--- NOTE | 2016-11-28 08:48 | Discharge Instructions ---
Discharge Instructions Date of Service Nov 28, 2016. Admission Reason for Admission: Sepsis Discharge Discharge Diagnosis / Problem: LEFT HIP SEPTIC ARTHRITS /MSSA Discharge Goals Goal(s): Decrease discomfort, Increase independence, Improve disease control, Therapeutic intervention Activity Recommendations Activity Level: Assistance Required Therapies: Physical Therapy, Occupational Therapy Partial weight bearing Left leg with walker. Keep incision clean, dry and in tact with daily dressing changes. Ice and pain medications as needed. Additional Information Patient informed of condition: Yes Advance Directives: No DNR: No Level of Care: Acute Rehab Communicable Disease: Yes Prognosis: Stable Talbert Catheter: No Instructions / Follow-Up Instructions / Follow-Up FOLLOW UP WITH PHYSICIAN AT [facility] FOLLOW UP WITH DR LUDY PHAM IN 2 WEEKS ORTHOPEDICS FOLLOW with Dr. Shultz 10-12 days post op, call [facility] at [phone] for appt. . COMPLETE IV ANTIBIOTIC DAPTOMYCIN FOR TOTAL 6 WEEKS , LAST DAY OF TREATMENT 12/11 LAB WORK : COMPLETE BLOOD WORK , COMPREHENSIVE METABOLIC PANEL , ESR , CPK LEVEL EVERY WEEK WHILE ON IV DAPTOMYCIN Current Hospital Diet Patient's current hospital diet: AHA Diet (Heart Healthy) Discharge Diet Recommended Diet: AHA Diet (Heart Healthy) Procedures Procedures Performed: Incision and Drainage Left Hip, Drainage of Periarticular Abscess Pending Studies Studies pending at discharge: no Medical Emergencies . Who to Call and When: Medical Emergencies: If at any time you feel your situation is an emergency, please call 911 immediately. . Non-Emergent Contact Non-Emergency issues call your: Primary Care Provider . . "Provider Documentation" section prepared by Maria T Wright. . Cartridge Loading Operator Recommendations Cartridge Loading Operator Recommendations: Left Hip I&D Partial weight bearing Left leg with walker. Keep incision clean, dry and in tact with daily dressing changes. Ice and pain medications as needed. Follow up with Dr. Shultz 10-12 days post op, call [facility] at [phone] for appt. Cartridge Loading Operator Recommendations Addendum Section Prevena- This is a large suction dressing covering your incision. This will help pull any excess drainage from the wound and allow your incision to heal properly. You may shower with this if you can keep the unit outside of the shower. If any bleeding or leakage is noted please call your doctor's office. This will remain on your incision for 7 days and then should be removed. This can be done yourself or by the home nursing staff if applicable. The entire unit is disposable once removed. Once removed, keep incision clean and dry. If redness or drainage is noted, please call your surgeon. Core Measure Problem Core Measures: None
[2016-11-28] MEDS: DOCUSATE SODIUM 100 MG CAP PO SCH (08:51)
[2016-11-28] MEDS: DILTIAZEM HCL (TIAzac) 180 MG CAPCR PO SCH (08:51)
[2016-11-28] MEDS: DOCUSATE SODIUM/SENNA 50/8.6MG TAB PO SCH (08:51)
[2016-11-28] MEDS: GABAPENTIN 100 MG CAP PO SCH ×2 (08:51→14:12)
[2016-11-28] MEDS: FERROUS SULFATE 325 MG TAB PO SCH (08:51)
[2016-11-28] MEDS: CEROVITE ADV FORMULA TAB PO SCH (08:51)
[2016-11-28] MEDS: FAMOTIDINE 20 MG TAB PO SCH (08:51)
[2016-11-28] MEDS ORDERED: DAPTOMYCIN IV ×2 (09:46→09:48)
[2016-11-28 15:05] VITALS: BP 123/69; PULSE 88; TEMP 36.5; O2SAT 97
[2016-11-28] MEDS: DAPTOmycin IV 400 MG in SODIUM CHLORIDE 0.9% 50ML 50 ML IV SCH (15:18)
[2016-11-28] MEDS: WARFARIN SOD 2.5 MG TAB PO SCH ×2 (15:32→16:38)
[2016-11-28 16:20] LABS: INR 1.1 (0.9-1.1); PROTHROMBIN TIME (PATIENT) 11.5 SECONDS (9.0-12.0)
--- NOTE | 2016-11-28 16:20 | Progress Note ---
Internal Med Progress Note Date of Service: Nov 28, 2016. Provider Documentation: SUBJECTIVE: no complain of back pain feel fine stable to be transferred to [facility] OBJECTIVE: Vital Signs-as noted below Exam: General- No acute distress Head- atraumatic Eyes- PERRL, EOMI ENT- oropharynx clear Neck- supple, no JVD Lungs- clear to auscultation Heart- regular rhythm Abdomen- normal bowel sounds, soft Extremities- no calf tenderness, Prevana Dressing with vac on left hip Neuro- alert, oriented x 3; PERRL, EOMI Skin- warm & dry Lab data as noted below. ASSESSMENT & PLAN: INFECTED Left hip /LEFT HIP SEPTIC ARTHRITIS Recently completed 6 weeks of IV abx hx MSSA sp IV Ceftriaxone and was unble to tolerate and was changed to Vancomycin CT abd/pelvis Progressive left hip septic arthritis with increase in size of the left hip effusion including a 5.7 cm fluid collection extending posterior to the hip. There is also progressive cortical destruction and subluxation of the left hip. The cortical destruction at the base of the femoral neck is concerning for an impending fracture Ortho consulted s/p u/s guided aspiration with 20cc purulent fluid collected and sent for culture s/p irrigation and debridement left hip dr. Sofia on 11/23/16 left hip joint fluid /synovial fluid growing Staph Aureus MSSA ID following -appreciate input ABx changed to Daptomycin -6mg /Kg daily -on 400mg IV Daily dose ID recommend for 6 weeks of IV Daptomycin form OR Date , tentative last day of tx on 01/04/17 pt will need weekly Labs : CBC. CMP . ESR . 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 Ortho follow up in 2 weeks for removal of belkys As per ortho once infection is cleared, she will need hip replacement that can be done at a tertiary facility Chronic Anemia hb remains stable s/p 1 unit of PRBC tx Hypertension BP stable On diltiazem Paroxysmal Afib Continue Cardizem Coumadin resumed LOW MG : replaced CKD STAGE III Stable DVT px on SCDs Coumadin resumed CODE STATUS FULL CODE Disposition will need rehab for IV Abx and left hip local wound care referral made to [facility] transfer to [facility] today Vital Signs: Date Time Temp Pulse Resp B/P (MAP) Pulse Ox O2 Delivery O2 Flow Rate FiO2 11/28/16 15:35 Room Air 11/28/16 15:05 36.5 88 16 123/69 (87) 97 Room Air 11/28/16 10:02 36.8 103 16 95 Room Air 11/28/16 08:44 103 129/75 (93) 11/28/16 07:10 Room Air 11/28/16 06:57 36.8 99 16 137/79 (98) 95 Room Air 11/28/16 00:30 Room Air 11/27/16 23:00 36.8 98 16 129/75 (93) 96 Room Air Lab Results: Results Past 24 Hours Test 11/28/16 05:26 11/28/16 15:59 Range/Units Sodium Level 136 136-145 mmol/L Potassium Level 4.2 3.5-5.1 mmol/L Chloride Level 103 98-107 mmol/L Carbon Dioxide Level 25 21-32 mmol/L Anion Gap 8.0 3-11 mmol/L Blood Urea Nitrogen 22 7-18 mg/dl Creatinine 0.82 0.60-1.20 mg/dl Est Creatinine Clear Calc Drug Dose 59.9 ml/min Estimated GFR () 84.6 Estimated GFR (Non- 73.0 BUN/Creatinine Ratio 26.7 10-20 Random Glucose 78 70-99 mg/dl Calcium Level 9.7 8.5-10.1 mg/dl Magnesium Level 1.8 1.8-2.4 mg/dl Prothrombin Time 11.5 9.0-12.0 SECONDS Prothromb Time International Ratio 1.1 0.9-1.1
--- NOTE | 2016-11-28 19:54 | Discharge Summary ---
Discharge Summary Date of Service Nov 28, 2016. Discharge Summary Admission Date: Nov 21, 2016 at 02:00 Discharge Date: Nov 28, 2016 Discharge Disposition: Rehab ([facility] ) Principal Diagnosis: LEFT HIP SEPTIC ARTHRITS /MSSA Procedures: Procedures Performed: Incision and Drainage Left Hip, Drainage of Periarticular Abscess Consultations: Ortho ID Medication Reconciliation New Medications: [Daptomycin] () 400 MG IV DAILY for 35 Days 5 MORE WEEKS TENTATIVE LAST DAY OF TREATMENT ON 01/04/17 Continued Medications: Acetaminophen Tab (Tylenol) 325 Mg Tab 650 MG PO Q4 PRN for Fever, TAB Bisacodyl (Dulcolax) 10 Mg Sup 10 MG CA DAILY PRN for Constipation, SUP Calcium-Magnesium W/ Vitamin D (Citracal Calcium+D Slow R) 1 Tab Tab 1200 MG PO DAILY Diltiazem Hcl Ext Rel (Tiazac) 180 Mg Capcr 180 MG PO QAM, CAP Famotidine (Pepcid) 20 Mg Tab 20 MG PO QAM, TAB Ferrous Sulfate (Kp Ferrous Sulfate) 325 Mg Tab 325 MG PO BID, TAB Gabapentin (Neurontin) 300 Mg Cap 300 MG PO HS, CAP Gabapentin (Neurontin) 100 Mg Cap 200 MG PO BID, CAP morning and afternoon Hydromorphone Hcl (Dilaudid) 2 Mg Tab 2 MG PO Q6H PRN for SEVERE PAIN, #14 TAB (This prescription has been renewed) Hydroxyzine Hcl (Atarax) 25 Mg Tab 25 MG PO Q6H, TAB Multiple Vitamins W/ Minerals (Centrum Silver Adult 50+) 1 Tab Tab 1 TAB PO DAILY Nortriptyline (Pamelor) 25 Mg Cap 25 MG PO HS, CAP Senna/Docusate Sod (Senokot S) 1 Tab Tab 1 TAB PO DAILY, TAB Sodium Phosphate/Biphosphate (Fleet Enema) Tayler 1 EA CA DAILY PRN for Constipation, BTL Tramadol (Ultram) 50 Mg Tab 50 MG PO Q6 PRN for Pain, #10 TAB (This prescription has been renewed) Travoprost (Travatan Z) 0.004 % Yonathan 1 DROP OPB HS Warfarin Sod (Jantoven) 2 Mg Tab 2 MG PO WK, TAB TAKE 2MG EVERY SATURDAY . Warfarin Sod (Jantoven) 4 Mg Tab 4 MG PO 6XWK, TAB TAKE 4MG EVERY SATURDAY/SATURDAY/SATURDAY/SATURDAY/SATURDAY/SATURDAY. Referrals At Discharge Follow up Referrals: Infectious Disease - Within 2 Weeks with Jennifer. Fletcher D.O. Orthopedics Referral - Within 6 Weeks with Juan Manuel Shultz M.D. Admission Information HPI (per Admitting provider): DATE OF ADMISSION: 11/21/2016 CHIEF COMPLAINT: Worsening left hip pain. HISTORY OF PRESENT ILLNESS: History is obtained from the patient and records. Medical history is significant for hypertension, chronic anemia (baseline hemoglobin of 8), PAF on Coumadin, hyperlipidemia, past tobacco abuse, chronic hyponatremia, Hx septic arthritis, L hip (MSSA) sp IV Ceftriaxone later Vancomycin course. The patient confined September 27- for septic arthritis, left hip. Aspirate negative, blood cultures grew MSSA. Px discharged to [facility] for rehabilitation on 6 week course of IV ceftriaxone. Plan for Ortho evaluation for left hip replacement after infection has cleared as per discharge note. PX readmitted October 12 for anemia and left hip pain. Coumadin resumed. PX discharged to [facility] for rehabilitation. PX noted to have a drug reaction/rash at [facility] attributed to IV Ceftriaxone. Px switched to IV vancomycin as per ID recommendation. Px dcd home from rehabilitation about 3 weeks ago. Had a follow up with ID outpatient last week. IV Vancomycin discontinued. PICC line removed. The last 2 days worsening of chronic left hip pain, achy. Fever of 101 at home , intermittent, no chest pain. No nausea, no cough. Constipated. Patient was brought to the Emergency Room. CAT scan initial read showed fracture of the neck left femur with volume loss, sclerosis femoral head grossly unchanged, subacute fracture inferior-superior left pubic ramus, large joint effusion, peripheral enhancement , appearing worse, possible osteomyelitis with septic arthritis, small collection , possible tiny abscess, new. Patient given Vancomycin in the Emergency Room. MEDICAL HISTORY: As above SURGICAL HISTORY: Hernia repair. HOME MEDICATIONS: Include, furosemide, hydromorphone, hydroxyzine, multivitamins, calcium carbonate, Coumadin, diltiazem, ferrous sulfate, gabapentin, vancomycin, Neurontin, Pamelor, tramadol. ALLERGIES: TO BRIMONIDINE, CODEINE, LATEX, , PERCOCET, ROCEPHIN. PERSONAL AND SOCIAL HISTORY: Past tobacco abuse. hx chronic alcohol intake in the past. 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 FAMILY HISTORY: History of esophageal cancer. Physical Exam (per Admitting): REVIEW OF SYSTEMS: As per HPI, all other ROS negative. PHYSICAL EXAMINATION: VITAL SIGNS: Blood pressure noted to be 150/70, pulse rate 105 later 87, RR 18, temperature 36.8, sats 97 on room air. GENERAL: Noted to be slightly uncomfortable, no respiratory distress. SKIN: Pallor. HEENT: [place] palpebral conjunctivae. Dry mucosa. Old lip asymmetry. NECK: No JVD. Supple. CHEST: Clear to auscultation. HEART: Regular rate and rhythm. ABDOMEN: Soft. EXTREMITIES : Tenderness, L hip NEUROLOGIC: No gross focality, except for old lip asymmetry. Hospital Course INFECTED Left hip /LEFT HIP SEPTIC ARTHRITIS Recently completed 6 weeks of IV abx hx MSSA sp IV Ceftriaxone and was unble to tolerate and was changed to Vancomycin CT abd/pelvis Progressive left hip septic arthritis with increase in size of the left hip effusion including a 5.7 cm fluid collection extending posterior to the hip. There is also progressive cortical destruction and subluxation of the left hip. The cortical destruction at the base of the femoral neck is concerning for an impending fracture Ortho consulted s/p u/s guided aspiration with 20cc purulent fluid collected and sent for culture s/p irrigation and debridement left hip dr. Sofia on 11/23/16 left hip joint fluid /synovial fluid growing Staph Aureus MSSA ID following -appreciate input ABx changed to Daptomycin -6mg /Kg daily -on 400mg IV Daily dose ID recommend for 6 weeks of IV Daptomycin form OR Date , tentative last day of tx on 01/04/17 pt will need weekly Labs : CBC. CMP . ESR . 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 care registered nurse PO suppression antibiotic for recurrent Left hip joint infection Ortho follow up in 2 weeks for removal of belkys As per ortho once infection is cleared, she will need hip replacement that can be done at a tertiary facility Chronic Anemia hb remains stable s/p 1 unit of PRBC tx Hypertension BP stable On diltiazem Paroxysmal Afib Continue Cardizem Coumadin resumed LOW MG : replaced CKD STAGE III Stable DVT px on SCDs Coumadin resumed CODE STATUS FULL CODE Disposition will need rehab for IV Abx and left hip local wound care referral made to [facility] transfer to [facility] today Total time spent on discharge = 35MINS This includes examination of the patient, discharge planning, medication reconciliation, and communication with other providers. Discharge Instructions Discharge Instructions Date of Service Nov 28, 2016. Admission Reason for Admission: Sepsis Discharge Discharge Diagnosis / Problem: LEFT HIP SEPTIC ARTHRITS /MSSA Discharge Goals Goal(s): Decrease discomfort, Increase independence, Improve disease control, Therapeutic intervention Activity Recommendations Activity Level: Assistance Required Therapies: Physical Therapy, Occupational Therapy Partial weight bearing Left leg with walker. Keep incision clean, dry and in tact with daily dressing changes. Ice and pain medications as needed. Additional Information Patient informed of condition: Yes Advance Directives: No DNR: No Level of Care: Acute Rehab Communicable Disease: Yes Prognosis: Stable Talbert Catheter: No Instructions / Follow-Up Instructions / Follow-Up FOLLOW UP WITH PHYSICIAN AT [facility] FOLLOW UP WITH DR LUDY PHAM IN 2 WEEKS ORTHOPEDICS FOLLOW with Dr. Shultz 10-12 days post op, call [facility] at [phone] for appt. . COMPLETE IV ANTIBIOTIC DAPTOMYCIN FOR TOTAL 6 WEEKS , LAST DAY OF TREATMENT 12/11 LAB WORK : COMPLETE BLOOD WORK , COMPREHENSIVE METABOLIC PANEL , ESR , CPK LEVEL EVERY WEEK WHILE ON IV DAPTOMYCIN Current Hospital Diet Patient's current hospital diet: AHA Diet (Heart Healthy) Discharge Diet Recommended Diet: AHA Diet (Heart Healthy) Procedures Procedures Performed: Incision and Drainage Left Hip, Drainage of Periarticular Abscess Pending Studies Studies pending at discharge: no Medical Emergencies . Who to Call and When: Medical Emergencies: If at any time you feel your situation is an emergency, please call 911 immediately. . Non-Emergent Contact Non-Emergency issues call your: Primary Care Provider . . "Provider Documentation" section prepared by Maria T Wright. . Emergency Room Physician Assistant Recommendations Emergency Room Physician Assistant Recommendations: Left Hip I&D Partial weight bearing Left leg with walker. Keep incision clean, dry and in tact with daily dressing changes. Ice and pain medications as needed. Follow up with Dr. Shultz 10-12 days post op, call [facility] at [phone] for appt. Emergency Room Physician Assistant Recommendations Addendum Section Prevena- This is a large suction dressing covering your incision. This will help pull any excess drainage from the wound and allow your incision to heal properly. You may shower with this if you can keep the unit outside of the shower. If any bleeding or leakage is noted please call your doctor's office. This will remain on your incision for 7 days and then should be removed. This can be done yourself or by the home nursing staff if applicable. The entire unit is disposable once removed. Once removed, keep incision clean and dry. If redness or drainage is noted, please call your surgeon. Core Measure Problem Core Measures: None Additional Copies To Hina Fletcher.Tomasa Douglas, M.D.
== END 2016-11-28 17:35 | DRG 481 ==
LOC: C.EDB 21:34 → C.MSW 11-21 02:00 → ENRESERV 11-21 02:23
PROVIDERS: ADMIT Internal Medicine; ATTEND Hospitalist
PROC: 02HV33Z Insertion of Infusion Device into Superior Vena Cava, Percutaneous Approach (ICD-10-PCS; 2016-11-23)
PROC: 0S9B0ZZ Drainage of Left Hip Joint, Open Approach (ICD-10-PCS; principal; 2016-11-23 07:15)
DX: M00.9 Pyogenic arthritis, unspecified (principal); M86.9 Osteomyelitis, unspecified; M84.452A Pathological fracture, left femur, initial encounter for fracture; E87.1 Hypo-osmolality and hyponatremia; M87.9 Osteonecrosis, unspecified; N18.3 Chronic kidney disease, stage 3 (moderate); I48.0 Paroxysmal atrial fibrillation; E78.5 Hyperlipidemia, unspecified; I12.9 Hypertensive chronic kidney disease with stage 1 through stage 4 chronic kidney disease, or unspecified chronic kidney disease; D64.9 Anemia, unspecified; E83.42 Hypomagnesemia; Z79.01 Long term (current) use of anticoagulants; Z79.899 Other long term (current) drug therapy

== ENCOUNTER → 2016-12-04 | Outpatient (CLI) | payer OTHER ==
[~2016-12-04] MED LIST changes: -CETI10TA84 PO; -CHLOTAB10 PO; -CRDCD180 PO; +DAPTOMYCIN IV; +DILT-113 PO; -DLD2 PO; +FERR1TAB13 PO; -FRRS300 PO; +HYDR-3124 PO; +HYDR2TAB48 PO; +NORT25CA PO; -NRT25 PO; -RCPAV2 IV; +SENN-65 PO
--- NOTE | 2016-12-04 18:06 | DIAGNOSTIC IMAGING REPORT ---
LEFT HIP ULTRASOUND CLINICAL HISTORY: PAIN/SWELLING IN L Hip, r/o ABSCESS COMPARISON STUDY: Abdomen and pelvis CT 11/20/2016. FINDINGS: There are 3 similar-appearing complex fluid collections seen within the left hip deep to the incision site. The more superficial collections measure approximately 9 cm and 11 cm in size. The deeper fluid collection measures 6 x 4 x 3 cm. IMPRESSION: There are 3 similar-appearing complex fluid collections deep to the left hip incision site as described above. These are nonspecific and could represent postoperative seromas, hematomas, or abscesses. Electronically signed by: Lauro Dockery M.D. 12/04/2016 6:04 PM Dictated Date/Time: 12/04/2016 6:01 PM
== END | disposition home or self-care (01) ==
LOC: C.ULTR 16:56
PROVIDERS: ATTEND Physical Medicine & Rehabilitation
DX: M25.552 Pain in left hip (principal); M25.452 Effusion, left hip

== ENCOUNTER 2016-12-27 17:36 | Inpatient (IN) | payer OTHER ==
[~2016-12-27] VITALS: Ht 160 cm; Wt 67.8 kg
[~2016-12-27 17:36] MED LIST changes: -FAMO20TA11 PO; -FERR1TAB13 PO; -GABA-112 PO; -HYDR-3124 PO; -MULT-845 PO; -NORT25CA PO
--- NOTE | 2016-12-27 17:57 | EMERGENCY ROOM VISIT NOTE ---
History Report prepared by Joseph: Arnulfo Duke Under the Supervision of: Dr. Rivera Cook M.D. First contact with patient: 17:42 Stated Complaint: SOB History of Present Illness The patient is a 71 year old female who presents to the Emergency Room with complaints of shortness of breath that began recently. She is currently receiving rehabilitation for her left hip infection. She has a history of osteomyelitis. At rehab today, the patient was found short of breath with an oxygen saturation of 90% on room air. This morning, the patient states that she was not short of breath. She is also having a dry cough that has become productive today. She denies any chest pain. She denies any history of blood clots or lung disorders. She is currently on Coumadin. She denies any hematochezia or melena. She notes that she has a low grade fever currently. Source of History: patient Onset: recently Position: other (Respiratory System) Symptom Intensity: moderate Quality: other (Shortness of breath) Timing: constant Associated Symptoms: + fevers (low grade), + cough, No chest pain Review of Systems See HPI for pertinent positives & negatives. A total of 10 systems reviewed and were otherwise negative. Past Medical & Surgical Medical Problems: (1) Anemia (2) Atrial fibrillation (3) AVN (avascular necrosis of bone) (4) Chronic low back pain (5) CKD (chronic kidney disease), stage III (6) Dyslipidemia (7) H/o septic arthritis left hip (8) Hypertension (9) Hyponatremia (10) Lumbar disc disease (11) Osteoarthritis (12) Septic arthritis Surgical Problems: (1) S/P epidural steroid injection (2) S/P inguinal hernia repair Family History FH: esophageal cancer FATHER Social History Smoking Status: Former Smoker Drug Use: none Marital Status: single Housing Status: lives with family Occupation Status: retired Current/Historical Medications Scheduled Bisacodyl (Dulcolax), 1 TAB PO PRN Clotrimazole W/ Betamethasone (Lotrisone), 1 APPLN TOP AMPM Diltiazem Hcl Coated Beads (Diltiazem Cd), 180 MG PO DAILY Docusate Sodium (Docusate Sodium), 1 CAP PO BID Famotidine (Pepcid), 20 MG PO QAM Ferrous Sulfate (Kp Ferrous Sulfate), 325 MG PO BID Gabapentin (Neurontin), 300 MG PO HS Gabapentin (Neurontin), 200 MG PO BID Latanoprost (Xalatan 0.005% Oph Nanci), 1 DROPS OP HS Lidocaine (Lidoderm Patch 5%), 1 PATCH TOP DAILY Multiple Vitamins W/ Minerals (Centrum Silver Adult 50+), 1 TAB PO DAILY Nortriptyline (Pamelor), 25 MG PO HS Senna (Senokot), 2 TAB PO HS Warfarin Sodium (Coumadin), 4 MG PO UD [Daptomycin], 400 MG IV DAILY Scheduled PRN Acetaminophen (Tylenol), 500 MG PO Q4 PRN for Pain or Fever Bisacodyl (Dulcolax), 10 MG TN DAILY PRN for Constipation Hydromorphone Hcl (Dilaudid), 4 MG PO Q3HRS PRN for Pain Hydroxyzine Hcl (Atarax), 25 MG PO Q6H PRN for Dizziness or Vertigo Lorazepam (Ativan), 0.5 MG PO ONCE PRN for Anxiety Magnesium Hydroxide (Milk Of Magnesia), 30 ML PO DAILY PRN for Constipation Ondasetron Odt (Zofran Odt), 4 MG SL Q6H PRN for Nausea or Vomiting Polyethylene Glycol 3350 (Miralax), 17 GM PO DAILY PRN for Constipation Sodium Phosphate/Biphosphate (Fleet Enema), 1 EA TN DAILY PRN for Constipation Tramadol (Ultram), 50 MG PO Q6 PRN for Pain Allergies Coded Allergies: Brimonidine (Verified Allergy, Intermediate, OTHER-SEE COMMENT, 11/21/16) Toxic conjunctivitis Ceftriaxone (Verified Allergy, Intermediate, RASH, 11/26/16) Vancomycin (Verified Allergy, Intermediate, red jez syndrome, 11/26/16) pt reports the only way she was able to tolerate vanco was if it was given over a 4 hour period iv and was given hydroxyzine 25mg every 6 hours around the clock for 24 hours Codeine (Verified Allergy, Mild, GI SYMPTOMS, 11/26/16) Latex1 -Allergic Contact Dermititis (Verified Allergy, Mild, RASH, 11/21/16 ) Oxycodone (Verified Allergy, Mild, GI SYMPTOMS-TYL. W/CODEINE OK, 11/26/16) PT STATES "CAN TAKE TYENOL W/CODIENE WITH OUT ANY DIFFICULTY". Nickel (Verified Allergy, Unknown, RASH, 11/21/16) Diphenhydramine (Verified Adverse Reaction, Intermediate, Hyper, 11/26/16) as per patient opposite effect Physical Exam Vital Signs Date Time Temp Pulse Resp B/P (MAP) Pulse Ox O2 Delivery O2 Flow Rate FiO2 12/27/16 20:39 90 20 133/68 96 Nasal Cannula 3.0 12/27/16 18:52 95 17 125/67 96 Nasal Cannula 3.0 12/27/16 18:09 99 Nasal Cannula 3.0 12/27/16 18:02 37.6 96 26 141/75 90 Room Air 12/27/16 18:02 98 Nasal Cannula 3.0 12/27/16 18:02 90 Room Air 12/27/16 17:50 94 Physical Exam GENERAL: Patient is in mild acute distress secondary to her dyspnea. HEENT: No acute trauma, normocephalic atraumatic, mucous membranes moist, no nasal congestion, no scleral icterus. NECK: No stridor, no adenopathy, no meningismus, trachea is midline. LUNGS: Clear to auscultation bilaterally, no wheeze, no rhonchi, breath sounds equal. Patient seems dyspneic when speaking. HEART: Without murmurs gallops or rubs, regular rate and rhythm. ABDOMEN: Soft, nontender, bowel sounds positive, no hernias, no peritonitis. EXTREMITIES: She has pedal edema bilaterally that is worse on the left. Her left lateral hip has a healing incision with some subtle surrounding erythema. NEUROLOGIC: Oriented x 3, no acute motor or sensory deficits, no focal weakness. SKIN: No rash, no jaundice, no diaphoresis. Medical Decision & Procedures ER Provider Diagnostic Interpretation: Radiology results as stated below per my review and radiologist interpretation: CT ANGIOGRAM OF THE CHEST CLINICAL HISTORY: Atypical chest pain. Respiratory distress. COMPARISON STUDY: Chest x-ray dated 01-11 TECHNIQUE: Following the IV administration of 70 mL of Optiray-320, CT angiogram of the thorax was performed from the thoracic inlet to the lung bases utilizing the pulmonary embolus protocol. Images are reviewed in the axial, sagittal, and coronal planes. IV contrast was administered without complication. MIP imaging was performed. A dose lowering technique was utilized adhering to the principles of ALARA. CT DOSE: 415.77 mGy.cm FINDINGS: There is an 8 mm right lobe thyroid nodule There is mild mediastinal lymphadenopathy. There is a 15 mm right paratracheal lymph node and 12 mm subcarinal lymph node. There is a mildly enlarged right hilar lymph node There was no evidence of thoracic aortic dilatation. There were no pulmonary artery filling defects to indicate acute pulmonary embolism. 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 There are dependent right lower lobe atelectatic changes. There is pulmonary emphysema. There are extensive right upper lobe airspace opacities, likely representing a pneumonia. Peripheral left upper lobe airspace opacities are also present. There are left basilar atelectatic changes. There are sternal fragmentation. There are bilateral shoulder joint effusions. There are bilateral arthritic changes within the shoulders. IMPRESSION: 1. No evidence of acute pulmonary embolism 2. Right-sided foramen of Morganii hernia 3. Small right pleural effusion 4. Mild mediastinal and hilar adenopathy 5. Emphysema 6. Right upper lobe airspace opacities suspicious for pneumonia. Also evident are peripheral airspace opacities within the left upper lobe, likely also inflammatory/infectious. Clinical and imaging follow-up is recommended. Electronically signed by: Reggie Cota M.D. 12/27/2016 8:40 PM Dictated Date/Time: 12/27/2016 8:33 PM CHEST ONE VIEW PORTABLE CLINICAL HISTORY: Respiratory distress COMPARISON STUDY: 11/20/2016 FINDINGS: The cardiac images all contours remain stable. A right diaphragmatic hernia is again visualized. Since the prior study, the patient has developed right upper lobe airspace opacity suspicious for a pneumonia. Linear opacities the right lung base or atelectatic. There are equivocal left perihilar airspace opacities.[Left-sided PICC catheter is visualized. The tip projects over the superior vena cava. IMPRESSION: 1. Interval development of right upper lobe airspace opacity suspicious for pneumonia. Clinical and radiographic follow-up is recommended 2. Opacity at the right lung base, likely secondary to the patient's known diaphragmatic hernia with superimposed atelectasis Electronically signed by: Reggie Cota M.D. 12/27/2016 6:16 PM Dictated Date/Time: 12/27/2016 6:13 PM Laboratory Results 12/27/16 18:30 Red Blood Count 2.88, Mean Corpuscular Volume 86.5, Mean Corpuscular Hemoglobin 27.8, Mean Corpuscular Hemoglobin Concent 32.1, Mean Platelet Volume 8.7, Neutrophils (%) (Auto) 74.6, Lymphocytes (%) (Auto) 11.4, Monocytes (%) (Auto) 8.2, Eosinophils (%) (Auto) 5.0, Basophils (%) (Auto) 0.3, Neutrophils # (Auto) 9.91, Lymphocytes # (Auto) 1.52, Monocytes # (Auto) 1.09, Eosinophils # (Auto) 0.66, Basophils # (Auto) 0.04 12/27/16 18:30 Test 12/27/16 18:20 12/27/16 18:30 12/27/16 18:52 12/27/16 19:25 Urine Color YELLOW Urine Appearance CLEAR (CLEAR) Urine pH 6.0 (4.5-7.5) Urine Specific [place] 1.011 (1.000-1.030) Urine Protein NEG (NEG) Urine Glucose (UA) NEG (NEG) Urine Ketones NEG (NEG) Urine Occult Blood NEG (NEG) Urine Nitrite NEG (NEG) Urine Bilirubin NEG (NEG) Urine Urobilinogen NEG (NEG) Urine Leukocyte Esterase NEG (NEG) White Blood Count 13.28 K/uL (4.8-10.8) Red Blood Count 2.88 M/uL (4.2-5.4) Hemoglobin 8.0 g/dL (12.0-16.0) Hematocrit 24.9 % (37-47) Mean Corpuscular Volume 86.5 fL (80-100) Mean Corpuscular Hemoglobin 27.8 pg (25-34) Mean Corpuscular Hemoglobin Concent 32.1 g/dl (32-36) Platelet Count 283 K/uL (130-400) Mean Platelet Volume 8.7 fL (7.4-10.4) Neutrophils (%) (Auto) 74.6 % Lymphocytes (%) (Auto) 11.4 % Monocytes (%) (Auto) 8.2 % Eosinophils (%) (Auto) 5.0 % Basophils (%) (Auto) 0.3 % Neutrophils # (Auto) 9.91 K/uL (1.4-6.5) Lymphocytes # (Auto) 1.52 K/uL (1.2-3.4) Monocytes # (Auto) 1.09 K/uL (0.11-0.59) Eosinophils # (Auto) 0.66 K/uL (0-0.5) Basophils # (Auto) 0.04 K/uL (0-0.2) RDW Standard Deviation 51.6 fL (36.4-46.3) RDW Coefficient of Variation 16.2 % (11.5-14.5) Immature Granulocyte % (Auto) 0.5 % Immature Granulocyte # (Auto) 0.06 K/uL (0.00-0.02) Polychromasia 1+ Hypochromasia PRESENT Anion Gap 8.0 mmol/L (3-11) Est Creatinine Clear Calc Drug Dose 58.8 ml/min Estimated GFR () 76.1 Estimated GFR (Non- 65.7 BUN/Creatinine Ratio 15.7 (10-20) Calcium Level 8.6 mg/dl (8.5-10.1) Magnesium Level 1.4 mg/dl (1.8-2.4) Total Bilirubin 0.3 mg/dl (0.2-1) Aspartate Amino Transf (AST/SGOT) 15 U/L (15-37) Alanine Aminotransferase (ALT/SGPT) 11 U/L (12-78) Alkaline Phosphatase 82 U/L (45-117) Troponin I < 0.015 ng/ml (0-0.045) Total Protein 7.4 gm/dl (6.4-8.2) Albumin 2.0 gm/dl (3.4-5.0) Globulin 5.4 gm/dl (2.5-4.0) Albumin/Globulin Ratio 0.4 (0.9-2) Thyroid Stimulating Hormone (TSH) 1.500 uIu/ml (0.300-4.500) Lactic Acid Level 0.9 mmol/L (0.4-2.0) Prothrombin Time 23.2 SECONDS (9.0-12.0) Prothromb Time International Ratio 2.1 (0.9-1.1) Activated Partial Thromboplast Time 49.9 SECONDS (21.0-31.0) Partial Thromboplastin Ratio 1.9 Laboratory results reviewed by me. Medications Administered Medications (Trade) Dose Ordered Sig/Viviane Route Start Time Stop Time Status Last Admin Dose Admin Levofloxacin (Levaquin / D5W) 750 mg NOW STAT IV 12/27/16 18:21 12/27/16 18:24 DC 12/27/16 18:52 750 MG Sodium Chloride 500 ml @ 999 mls/hr Q31M STAT IV 12/27/16 18:59 12/27/16 19:29 DC 12/27/16 20:35 999 MLS/HR Magnesium Sulfate (Magnesium Sulfate) 1 gm NOW STAT IV 12/27/16 19:20 12/27/16 19:21 DC 12/27/16 20:35 1 GM Morphine Sulfate (MoRPHine SULFATE INJ) 2 mg NOW STAT IV 12/27/16 21:17 12/27/16 21:18 DC 12/27/16 21:24 2 MG ECG Indication: SOB/dyspnea Rate (beats per minute): 95 Rhythm: normal sinus Findings: no acute ischemic change, no ectopy, other (old septal infarct) ED Course 1741: The patient was evaluated in room B2. A complete history and physical exam was performed. 1820: Ordered Levofloxacin 750 mg IV 185: Ordered Sodium Chloride 500 ml @ 999 mls/hr IV 0: Ordered Magnesium Sulfate 1 gm IV 2116: Ordered Morphine Sulfate 2 mg IV 2120: Upon reexamination the patient is resting. I discussed results and treatment plan with the patient. She verbalizes agreement and understanding. The patient will be evaluated by Dr. James [facility] Hospitalist, for further management. Medical Decision Differential diagnosis includes but is not limited to pneumonia, PE, CHF, anemia , electrolyte imbalance, and dysrhythmia. There is a mild leukocytosis, this could be consistent with infection. The patient is anemic but looking back at previous testing, this is about baseline for her. Magnesium is low. No kidney failure. No hepatitis. INR is elevated and consistent with her Coumadin use. Lactic acid level was not elevated making sepsis less likely. Chest film shows a right upper lung pneumonia. Chest CT shows the same pneumonia, no PE was noted. EKG shows a sinus rhythm, no acute ischemia. Cardiac enzyme testing 1 is not consistent with acute cardiac injury. Blood cultures are pending. Urinalysis does not show infection. The patient was placed on oxygen via nasal cannula. She received IV Levaquin for antibiotic coverage. She received IV morphine for pain, IV saline for hydration. She was given IV magnesium. The patient requires a hospital stay. She is already on IV daptomycin for a left hip infection. She has developed a hospital-acquired pneumonia. IV antibiotics are required. I spoke to the patient and case management. The on- call hospitalist was consulted. Medication Reconcilliation Current Medication List: was personally reviewed by me Blood Pressure Screening Patient's blood pressure: Normal blood pressure Blood pressure disposition: Did not require urgent referral Consults Time Called: 2114 Consulting Physician: Dr. Jacob Duckworth Hospitalist Returned Call: [phone] Discussed the patient's case. The patient will be evaluated for further management. Impression Primary Impression: PNA (pneumonia) Additional Impression: SOB (shortness of breath) Scribe Attestation The scribe's documentation has been prepared under my direction and personally reviewed by me in its entirety. I confirm that the note above accurately reflects all work, treatment, procedures, and medical decision making performed by me. Departure Information Dispostion Being Evaluated By Hospitalist Prescriptions Warfarin Sodium (COUMADIN) 2 Mg Tab 4 MG PO UD, #30 TAB coumadin 4mg po daily except saturday coumadin 2mg po daily on saturday Prov: Xavier James MD 12/27/16 Diltiazem Hcl Coated Beads (DILTIAZEM CD) 180 Mg Cap 180 MG PO DAILY, #30 CAP Prov: Xavier James MD 12/27/16 Referrals Jeremiah Alvarado M.D. (PCP) Problem Qualifiers Primary Impression: PNA (pneumonia)
[2016-12-27] MEDS ORDERED: OPTIRAY 320 IV PRN (18:15)
--- NOTE | 2016-12-27 18:17 | DIAGNOSTIC IMAGING REPORT ---
CHEST ONE VIEW PORTABLE CLINICAL HISTORY: Respiratory distress COMPARISON STUDY: 11/20/2016 FINDINGS: The cardiac images all contours remain stable. A right diaphragmatic hernia is again visualized. Since the prior study, the patient has developed right upper lobe airspace opacity suspicious for a pneumonia. Linear opacities the right lung base or atelectatic. There are equivocal left perihilar airspace opacities.[Left-sided PICC catheter is visualized. The tip projects over the superior vena cava. IMPRESSION: 1. Interval development of right upper lobe airspace opacity suspicious for pneumonia. Clinical and radiographic follow-up is recommended 2. Opacity at the right lung base, likely secondary to the patient's known diaphragmatic hernia with superimposed atelectasis Electronically signed by: Reggie Cota M.D. 12/27/2016 6:16 PM Dictated Date/Time: 12/27/2016 6:13 PM
[2016-12-27] MEDS ORDERED: LEVAQUIN 750MG / 150ML D5W IV STA (18:21)
[2016-12-27 18:57] LABS: BASO % 0.3 %; BASO ABS # 0.04 K/uL (0-0.2); HEMATOCRIT 24.9 % (37-47); IG% 0.5 %; LYMPH % 11.4 %; LYMPH ABS # 1.52 K/uL (1.2-3.4); MEAN CELL VOLUME 86.5 fL (80-100); MEAN CORPUSCULAR HEMOGLOBIN 27.8 pg (25-34); MEAN CORPUSCULAR HGB CONC 32.1 g/dl (32-36); MEAN PLATELET VOLUME 8.7 fL (7.4-10.4); MONO % 8.2 %; NEUT % 74.6 %; PLATELET COUNT 283 K/uL (130-400); RED BLOOD COUNT 2.88 M/uL (4.2-5.4); WHITE BLOOD COUNT 13.28 K/uL (4.8-10.8)
[2016-12-27] MEDS ORDERED: SODIUM CHLORIDE 0.9% 500ML 500 ML IV STA (18:59)
[2016-12-27] MEDS ORDERED: MOML PO (19:16)
[2016-12-27] MEDS ORDERED: SODIENE PR (19:16)
[2016-12-27] MEDS ORDERED: LATA0.009 OP (19:16)
[2016-12-27] MEDS ORDERED: POLY335019 PO (19:16)
[2016-12-27] MEDS ORDERED: TRAM-10 PO (19:16)
[2016-12-27] MEDS ORDERED: NF656 TOP (19:16)
[2016-12-27] MEDS ORDERED: DOCU100C31 PO (19:16)
[2016-12-27] MEDS ORDERED: ACET-1256 PO (19:16)
[2016-12-27] MEDS ORDERED: HYDR4TAB2 PO (19:16)
[2016-12-27 19:17] LABS: ALT/SGPT 11 U/L (12-78); BLOOD UREA NITROGEN 14 mg/dl (7-18); BUN/CREATININE RATIO 15.7 (10-20); CALCIUM 8.6 mg/dl (8.5-10.1); CARBON DIOXIDE 28 mmol/L (21-32); CHLORIDE 95 mmol/L (98-107); CREATININE 0.89 mg/dl (0.60-1.20); GLUCOSE 90 mg/dl (70-99); MAGNESIUM 1.4 mg/dl (1.8-2.4); POTASSIUM 3.6 mmol/L (3.5-5.1); SODIUM 130 mmol/L (136-145)
[2016-12-27] MEDS ORDERED: MAGNESIUM SULFATE 1GM / D5W 1 GM BAG IV STA (19:20)
[2016-12-27] MEDS ORDERED: CLOTCRE TOP (19:27)
[2016-12-27] MEDS ORDERED: WARF5TAB7 PO (19:27)
[2016-12-27] MEDS ORDERED: BISA-16 PO (19:27)
[2016-12-27] MEDS ORDERED: SENN-61 PO (19:27)
[2016-12-27] MEDS ORDERED: LORA-741 PO (19:27)
[2016-12-27] MEDS ORDERED: ONDA4TAB10 SL (19:27)
[2016-12-27] MEDS ORDERED: DAPTOMYCIN IV (19:27)
[2016-12-27 19:28] LABS: ALB/GLOB RATIO 0.4 (0.9-2); ALKALINE PHOSPHATASE 82 U/L (45-117); AST/SGOT 15 U/L (15-37); COMPLETE YES; HYPOCHROMIA PRESENT; POLYCHROMASIA 1+
[2016-12-27 19:55] LABS: URINE APPEARANCE CLEAR (CLEAR); URINE BILIRUBIN NEG (NEG); URINE COLOR YELLOW; URINE NITRITE NEG (NEG); URINE SPECIFIC GRAVITY 1.011 (1.000-1.030); UROBILINOGEN NEG (NEG); ZZURINE CULT IF INDIC CATH NO
[2016-12-27 19:57] LABS: INR 2.1 (0.9-1.1); PARTIAL THROMBOPLASTIN RATIO 1.9; PROTHROMBIN TIME (PATIENT) 23.2 SECONDS (9.0-12.0)
[2016-12-27 19:59] LABS: MANUAL MICROSCOPIC REQUIRED? NO; REVIEW REQ? NO
--- NOTE | 2016-12-27 20:41 | DIAGNOSTIC IMAGING REPORT ---
CT ANGIOGRAM OF THE CHEST CLINICAL HISTORY: Atypical chest pain. Respiratory distress. COMPARISON STUDY: Chest x-ray dated 01-11 TECHNIQUE: Following the IV administration of 70 mL of Optiray-320, CT angiogram of the thorax was performed from the thoracic inlet to the lung bases utilizing the pulmonary embolus protocol. Images are reviewed in the axial, sagittal, and coronal planes. IV contrast was administered without complication. MIP imaging was performed. A dose lowering technique was utilized adhering to the principles of ALARA. CT DOSE: 415.77 mGy.cm FINDINGS: There is an 8 mm right lobe thyroid nodule There is mild mediastinal lymphadenopathy. There is a 15 mm right paratracheal lymph node and 12 mm subcarinal lymph node. There is a mildly enlarged right hilar lymph node There was no evidence of thoracic aortic dilatation. There were no pulmonary artery filling defects to indicate acute pulmonary embolism. 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 There are dependent right lower lobe atelectatic changes. There is pulmonary emphysema. There are extensive right upper lobe airspace opacities, likely representing a pneumonia. Peripheral left upper lobe airspace opacities are also present. There are left basilar atelectatic changes. There are sternal fragmentation. There are bilateral shoulder joint effusions. There are bilateral arthritic changes within the shoulders. IMPRESSION: 1. No evidence of acute pulmonary embolism 2. Right-sided foramen of Morganii hernia 3. Small right pleural effusion 4. Mild mediastinal and hilar adenopathy 5. Emphysema 6. Right upper lobe airspace opacities suspicious for pneumonia. Also evident are peripheral airspace opacities within the left upper lobe, likely also inflammatory/infectious. Clinical and imaging follow-up is recommended. Electronically signed by: Reggie Cota M.D. 12/27/2016 8:40 PM Dictated Date/Time: 12/27/2016 8:33 PM
[2016-12-27] MEDS ORDERED: FAMO20TA11 PO (21:04)
[2016-12-27] MEDS ORDERED: MULT-845 PO (21:04)
[2016-12-27] MEDS ORDERED: MoRPHine SULFATE 2 MG/ML CARP IV STA (21:17)
[2016-12-27] MEDS ORDERED: GABA-112 PO (21:38)
[2016-12-27] MEDS ORDERED: ACETAMINOPHEN 325 MG TAB PO PRN (21:45)
[2016-12-27] MEDS ORDERED: ONDANSETRON 4MG OD TAB SL PRN (21:45)
[2016-12-27] MEDS ORDERED: NITROGLYCERIN 0.4 MG SL PER TAB CHARGE SL PRN (21:45)
[2016-12-27] MEDS ORDERED: MAGNESIUM HYDROXIDE SUSP 30 ML UDC PO PRN (21:45)
[2016-12-27] MEDS ORDERED: SOD PHOSPHATE/SOD BIPHOSPHATE ENEMA 132 ML BTL PR PRN (21:45)
[2016-12-27] MEDS ORDERED: ACETAMINOPHEN 500 MG TAB PO PRN (21:45)
[2016-12-27] MEDS ORDERED: BISACODYL 10 MG SUPP PR PRN (21:45)
[2016-12-27] MEDS ORDERED: hydrOXYzine HCL 25 MG TAB PO PRN (21:45)
[2016-12-27] MEDS ORDERED: ALUMINUM/MAGNESIUM/SIMETH (MAALOX MAX) 30 ML UDC PO PRN (21:45)
[2016-12-27] MEDS ORDERED: WARF2TAB PO (21:59)
[2016-12-27] MEDS ORDERED: DILT180C58 PO (21:59)
[2016-12-27] MEDS ORDERED: HYDR-3124 PO (22:14)
[2016-12-27] MEDS ORDERED: FERR1TAB13 PO (22:22)
[2016-12-27] MEDS ORDERED: NORT25CA PO (22:24)
[2016-12-27 23:00] VITALS: BP 140/80; PULSE 98; TEMP 36.7; O2SAT 97; Ht 160 cm; Wt 67.8 kg
[2016-12-27] MEDS ORDERED: LIDODERM (LIDOCAINE) PATCH 5% TD SCH (23:00)
[2016-12-27] MEDS ORDERED: LEVOFLOXACIN CONSULT ACTIVE PRN (23:15)
[2016-12-27] MEDS: SODIUM CHLORIDE 0.9% 1000ML 1,000 ML IV SCH (23:20)
[2016-12-27 23:59] VITALS: O2SAT 97
[2016-12-28] VITALS (9 sets, daily range): BP systolic 120–156; BP diastolic 61–80; PULSE 91–100; TEMP 36.6–37; O2SAT 93–97
[2016-12-28] MEDS: HYDROmorphone HCL 2 MG TAB PO PRN ×5 (00:05→22:05)
[2016-12-28] MEDS ORDERED: NURSING VERBAL MED ORDER ONE (00:15)
[2016-12-28] MEDS: ALBUT/IPRATROP 3MG/0.5MG NEB 3 ML VIAL INH PRN (02:47)
[2016-12-28] MEDS: TRAMADOL HCL 50 MG TAB PO PRN ×2 (03:19→19:32)
[2016-12-28] MEDS ORDERED: INFLUENZA ADMINISTRATION CHARGE ONE (05:30)
[2016-12-28] MEDS ORDERED: INFLUENZA VACCINE HIGH DOSE 65+ 0.5 ML SYR IM. ONE (05:30)
[2016-12-28 05:40] LABS: BASO % 0.3 %; BASO ABS # 0.03 K/uL (0-0.2); EOS % 4.7 %; HEMATOCRIT 23.4 % (37-47); IG% 0.3 %; LYMPH ABS # 1.39 K/uL (1.2-3.4); MEAN CORPUSCULAR HEMOGLOBIN 27.2 pg (25-34); MEAN CORPUSCULAR HGB CONC 31.6 g/dl (32-36); MEAN PLATELET VOLUME 8.1 fL (7.4-10.4); MONO % 8.5 %; NEUT % 74.2 %; PLATELET COUNT 263 K/uL (130-400); RED BLOOD COUNT 2.72 M/uL (4.2-5.4)
[2016-12-28 06:09] LABS: BUN/CREATININE RATIO 15.4 (10-20); CALCIUM 8.3 mg/dl (8.5-10.1); CREATININE 0.73 mg/dl (0.60-1.20); MAGNESIUM 1.4 mg/dl (1.8-2.4); POTASSIUM 3.7 mmol/L (3.5-5.1)
[2016-12-28 06:11] LABS: ANISOCYTOSIS PRESENT; COMPLETE YES; POLYCHROMASIA 1+
--- NOTE | 2016-12-28 06:39 | HISTORY & PHYSICAL EXAMINATION ---
DATE OF ADMISSION: 12/27/2016 CHIEF COMPLAINT: Shortness of breath. HISTORY OF PRESENT ILLNESS: This is a 71-year-old male with past medical history significant for hypertension, chronic anemia, baseline hemoglobin of 8, paroxysmal atrial fibrillation on Coumadin, hyperlipidemia, past tobacco use, chronic hyponatremia, history of septic arthritis left hip with MSSA, status post IV Rocephin which was later changed to vancomycin course and completed 6 weeks of course. After completion of antibiotics again she came back with fever and at that time she was found to have fracture of the left neck femur with volume loss and some joint effusion. She again had I&D done. The cultures again grew MSSA and she was started on another 6-week course of IV daptomycin, which she is supposed to get done by 2016, and once she has cleared up infection, there is a plan for hip replacement at a tertiary center. Patient is currently at a rehab, yesterday when she was doing PT she developed cough and she was getting more progressively short of breath and she was brought in here and she also has a mild temperature spike. She is having some difficulty speaking secondary to shortness of breath, saturating okay on 3 liters. Denies any headaches, no blurred vision, no dizziness, no chest pain, no nausea, no vomiting, no abdominal pain. Appetite not great today. Normal bowel and bladder movements. ALLERGIES: BRIMONIDINE, CEFTRIAXONE, CODEINE, DIPHENHYDRAMINE, LATEX, NICKEL, OXYCODONE, VANCOMYCIN. PAST MEDICAL HISTORY: As mentioned above. PAST SURGICAL HISTORY: Hernia repair, paraventricular nerve block, left hip I&Ds. SOCIAL HISTORY: Past tobacco with history of chronic alcoholic intake in the past. 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 FAMILY HISTORY: Significant for esophageal cancer. MEDICATIONS: Currently the patient is on Tylenol 500 mg p.o. q. 4 hours p.r.n., Dulcolax 10 mg per rectal daily p.r.n., bisacodyl 5 mg tablet p.o. p.r.n., Lotrisone cream, diltiazem CD 180 mg p.o. daily, Colace 100 mg p.o. b.i.d., famotine 20 mg p.o. a.m., ferrous sulfate 325 mg p.o. b.i.d., gabapentin 300 mg p.o. at bedtime, gabapentin 200 mg p.o. b.i.d., hydromorphone 4 mg p.o. q. 6 hours p.r.n., hydroxyzine 25 mg p.o. q. 6 hours p.r.n., latanoprost ophthalmic drops, Ativan 0.5 p.o. daily p.r.n., nortriptyline 25 mg p.o. at bedtime, multivitamin with minerals 1 tablet p.o. daily, tramadol 50 mg p.o. q. 6 hours p.r.n., Coumadin 4 mg p.o. daily except on Saturday and 2 mg on Saturday, daptomycin IV 400 mg daily. REVIEW OF SYMPTOMS: As per HPI. Rest of review of symptoms is negative. PHYSICAL EXAMINATION: GENERAL: The patient is of moderate build, not in distress. VITAL SIGNS: Temperature 37.6, pulse 90, respiratory rate 20, blood pressure 133/68, oxygen 96% on 3 liters. HEENT: No pallor, no icterus. Pupils equal, round, reactive to light. NECK: No JVD, no neck masses, no carotid bruits. CARDIOVASCULAR: S1, S2 heard, regular rate and rhythm, no murmur, no gallop. RESPIRATORY SYSTEM: Normal AP diameter, somewhat labored breathing. No wheezing, no crackles heard. ABDOMEN: Soft, bowel sounds present. Nontender. No distention. CENTRAL NERVOUS SYSTEM: Cranial nerves II-XII grossly intact. Nonfocal. EXTREMITIES: No edema, no erythema. Left hip postsurgical site no erythema or drainage seen. LABORATORY DATA AND DIAGNOSTIC STUDIES: WBC 13.2, hemoglobin 8, hematocrit 24.9, platelets 283. Sodium 130, potassium 3.6, chloride 95, bicarbonate 28, BUN 14, creatinine 0.8, serum glucose 90. Lactic acid 0.9, calcium 8.6, magnesium 1.4, total bilirubin 0.3, AST 15, ALT 11, alkaline phosphatase 82, troponin I less than 0.015. TSH 1.5. PT 23.2, INR 2.1, PTT 49.9. Urinalysis negative. CTA of the chest shows no PE, right upper lobe airspace opacity suspicious for pneumonia. Also evident are peripheral airspace opacities within left upper lobe likely also infectious. EKG: Normal sinus rhythm with rate of 95. No acute st changes seen. ASSESSMENT AND PLAN: This 71-year-old female presents with shortness of breath and found to have pneumonia. 1. Pneumonia, community versus hospital acquired pneumonia. The patient has a history of MSSA in the blood cultures and wound cultures and she had two 6 weeks of antibiotics currently on daptomycin, supposed to get done on 01/04/2017. Daptomycin has poor lung penetration. She received IV Levaquin in the ER which we will continue. Follow the cultures and consult ID in a.m. for further recommendation of antibiotics. Close monitor. 2. Left hip septic arthritis, initially finished 6 weeks of IV ceftriaxone and IV vancomycin and got reinfected and again status post I&D and currently on IV daptomycin, which she is supposed to get done by 01/04/2017. The patient is supposed to get left hip surgery once done with the antibiotics at a tertiary center. Continue IV daptomycin for now. Pain control. 3. History of atrial fibrillation, continue diltiazem and Coumadin. Follow the PT/INR. 4. Chronic anemia with a hemoglobin baseline around 8-9. We will follow the labs. 5. Hypertension, on diltiazem, we will monitor the blood pressure. 6. Low magnesium, we will replace. 7. Chronic kidney disease stage III, currently stable. We will monitor and we will follow the labs. 8. Deep venous thrombosis prophylaxis on Coumadin. INR therapeutic. DISPOSITION: Admit to tele floor. Expect to discharge back to rehab when stable. Level 1 full code. MTDD
[2016-12-28] MEDS: MAGNESIUM SULFATE 1GM / D5W 1 GM in PREMIXED IN D5W 100 ML IV SCH ×2 (08:24→08:26)
[2016-12-28] MEDS: FAMOTIDINE 20 MG TAB PO SCH (08:25)
[2016-12-28] MEDS: CLOTRIMAZOLE/BETAMETHASONE CR 15 GM TUBE EXT SCH ×2 (08:25→20:52)
[2016-12-28] MEDS: GABAPENTIN 100 MG CAP PO SCH ×2 (08:25→15:31)
[2016-12-28] MEDS: MAGNESIUM OXIDE 400 MG TAB PO SCH ×2 (08:26→20:54)
[2016-12-28] MEDS: CEROVITE ADV FORMULA TAB PO SCH (08:26)
[2016-12-28] MEDS: FERROUS SULFATE 325 MG TAB PO SCH ×2 (08:26→20:52)
[2016-12-28] MEDS: DOCUSATE SODIUM 100 MG CAP PO SCH ×2 (08:27→20:54)
[2016-12-28] MEDS: DILTIAZEM HCL 180 MG CAPCR PO SCH (08:27)
[2016-12-28] MEDS: SODIUM CHLORIDE 0.9% 1000ML 1,000 ML IV SCH ×2 (08:28→18:59)
[2016-12-28] MEDS: LIDODERM (LIDOCAINE) PATCH 5% TD SCH (08:28)
[2016-12-28] MEDS ORDERED: DAPTOMYCIN 400 MG IV SCH (09:00)
[2016-12-28] MEDS ORDERED: GABAPENTIN 100 MG CAP PO SCH (09:00)
[2016-12-28] MEDS ORDERED: POTASSIUM CHLORIDE 20 MEQ TABCR PO ONE (09:30)
[2016-12-28] MEDS ORDERED: MAGNESIUM SULFATE 1GM / D5W 1 GM in PREMIXED IN D5W 100 ML IV ONE (09:30)
[2016-12-28] MEDS: DAPTOmycin IV 400 MG in SYRINGE 0 ML IV SCH (11:13)
--- NOTE | 2016-12-28 11:55 | Progress Note ---
Progress Note Date of Service Dec 28, 2016. Progress Note Subjective: patient seen and examined in her room which is currently in the the intensive care unit of the hospital building. patient is there because no available telemetry beds. no notable telemetry events to date. however patient with electrolyte deficiencies and will need magnesium and potassium levels repleted before discontinuing telemetry to avoid arrhythmias from electrolyte deficiencies patient sitting in chair, breathing on nasal cannula, is saturating well but feels shortness of breath. no chest pain. some pain of left hip when palpated Physical Exam Lungs: fair air entry, saturation above 95% on nasal cannula Heart: Heart rate between high 90s to low 100s Abdomen: soft, nontender Hip: patient expresses some pain of left hip when palpated which radiates to back Extremities: no focal deficits ASSESSMENT AND PLAN: This 71-year-old female presents with shortness of breath and found to have pneumonia. 1. Pneumonia, community versus hospital acquired pneumonia. The patient has a history of MSSA in the blood cultures and wound cultures and she had two 6 weeks of antibiotics currently on daptomycin, supposed to get done on 01/04/2017. Daptomycin has poor lung penetration. She received IV Levaquin in the ER which we will continue. As per ID recommendations: Continue abx, check sputum culture , flu swab, legionella antigen 2. Left hip septic arthritis, initially finished 6 weeks of IV ceftriaxone and IV vancomycin and got reinfected and again status post I&D and currently on IV daptomycin, which she is supposed to get done by 01/04/2017. The patient is supposed to get left hip surgery once done with the antibiotics at a tertiary center. Continue IV daptomycin for now. Pain control. 3. History of atrial fibrillation, continue diltiazem and Coumadin. trend PT/ INR. 4. Chronic anemia with a hemoglobin baseline around 8-9. 5. Hypertension, on diltiazem, we will monitor the blood pressure. 6. electrolyte deficiencies and will need magnesium and potassium levels repleted before discontinuing telemetry to avoid arrhythmias from electrolyte deficiencies. 7. Chronic kidney disease stage III 8. Deep venous thrombosis prophylaxis on Coumadin. Disposition: originally from rehab facility, admitted as inpatient
--- NOTE | 2016-12-28 11:55 | Progress Note ---
Progress Note Date of Service Dec 28, 2016. Progress Note ID Consult Dictated [id number] A/P: 1. PNA 2. Septic arthritis hip, MSSA -Continue abx, check sputum culture, flu swab, legionella antigen -Continue supportive care -Thank you
--- NOTE | 2016-12-28 12:01 | INFECT. DISEASE CONSULTATION ---
DATE OF CONSULTATION: 12/28/2016 REQUESTING PHYSICIAN: Dr. James. HISTORY OF PRESENT ILLNESS: This is a 71-year-old female who was admitted to the hospital from her local half-way facility secondary to 1 day of shortness of breath. She is also having significant dyspnea on exertion. She denies any cough. She did have a CAT scan in the Emergency Room, which showed a right upper lobe infiltrate and also emphysematous changes. She did not have any evidence of PE. She has been on daptomycin for a prolonged period of time due to a left hip infection. She was previously seen and was found to have an MSSA septicemia in the summer. She also had fluid collections of her left hip and avascular necrosis. Fluid aspiration was attempted and was unable to be done. She was treated with Rocephin. Almost immediately after discontinuing a prolonged course of Rocephin, she developed worsening hip pain and fever. She had repeat imaging, which showed reaccumulation of fluid collections. She did undergo an I&D recently and these cultures grew MSSA as well. She is currently on daptomycin and has been tolerating that well. She states since her last ID visit in the office, she has been evaluated by surgeon in [place] and was to undergo significant joint surgery with what sounds like cement spacer; however, she is now admitted with pneumonia. Levaquin was added empirically. She did have one-time elevated temperature of 37.6 this morning, but denies any fevers or chills previously. She states that there have been sick people at her half-way facility. Her initial white blood cell count was 13 and it is 11 today. Her LFTs are normal. Her UA was negative. Blood cultures were obtained and are pending. On my examination, she is out of bed to chair. She does have nasal cannula oxygen, which she does not require on a normal basis. She denies any pleuritic chest pain. She just feels that she is tight and has nonproductive cough. She denies any nausea, vomiting, abdominal pain or diarrhea. Her remaining review of systems is unremarkable. PAST MEDICAL HISTORY: Significant for hypertension, anemia, paroxysmal AFib on blood thinners, hyperlipidemia and septic arthritis of the hip with MSSA on prolonged antibiotics as above. PAST SURGICAL HISTORY: Significant for hernia repair, nerve blocks, and multiple left hip I&Ds. FAMILY HISTORY: Noncontributory. SOCIAL HISTORY: Significant for history of tobacco use. She does have a history of alcohol use in the past. She currently has a local half-way facility. CURRENT MEDICATIONS: Include Coumadin, Neurontin, eyedrops, nortriptyline, Senokot, Lidoderm patch, levofloxacin, daptomycin, Colace, Pepcid, multivitamins, iron, diltiazem, magnesium, subQ heparin, Zofran, Maalox, milk of magnesia, MiraLax, Tylenol, Dulcolax, Dilaudid, hydroxyzine, Ultram and DuoNeb. ALLERGIES: SHE HAS ALLERGIES TO BRIMONIDINE, CEFTRIAXONE, CODEINE, BENADRYL, LATEX, NICKEL, OXYCODONE, AND VANCOMYCIN. PHYSICAL EXAMINATION: VITAL SIGNS: Her T-max is 37.6. She is currently afebrile, pulse 100, respiratory rate 18, blood pressure 156/80, and oxygen saturation is 94%-97% on 4 liters nasal cannula. GENERAL: She is awake, alert and oriented. She is in no acute distress. HEENT: Mucous membranes are dry. Extraocular muscles are intact. HEART: Without murmur. LUNGS: Decreased bilaterally. There is no wheezing. ABDOMEN: Soft and nondistended. EXTREMITIES: There is no lower extremity edema. SKIN: Without rash. LABORATORY STUDIES: CBC today reveals a white blood cell count of 11.6, hemoglobin 7.4, and platelets are 263. Chemistry panel reveals a sodium of 133, potassium 3.7, chloride 97, bicarbonate 27, BUN 11, creatinine 0.7, and glucose is 73. UA is negative. Blood cultures are pending. IMAGING: As above. She will remain on daptomycin and Levaquin empirically. A flu swab will be obtained. Legionella antigen will be obtained as well. Sputum culture should be obtained if able to provide and we will follow along with you. Thank you for this consultation.
[2016-12-28 12:58] LABS: BUN/CREATININE RATIO 12.7 (10-20); CALCIUM 8.9 mg/dl (8.5-10.1); CREATININE 0.79 mg/dl (0.60-1.20); MAGNESIUM 2.4 mg/dl (1.8-2.4); POTASSIUM 3.4 mmol/L (3.5-5.1)
[2016-12-28 13:02] LABS: ALB/GLOB RATIO 0.3 (0.9-2)
[2016-12-28] MEDS ORDERED: POTASSIUM CHLORIDE 20 MEQ TABCR PO STA (14:49)
[2016-12-28] MEDS: WARFARIN SOD 4 MG TAB PO SCH (15:31)
[2016-12-28] MEDS ORDERED: WARFARIN SOD 5 MG TAB PO SCH (16:00)
[2016-12-28] MEDS: LEVOFLOXACIN / D5W 750 MG in PREMIXED IN D5W 150 ML IV SCH (18:57)
[2016-12-28] MEDS: LORAZEPAM 0.5 MG TAB PO PRN (20:49)
[2016-12-28] MEDS: SENNA 8.6 MG TAB PO SCH (20:53)
[2016-12-28] MEDS: GABAPENTIN 300 MG CAP PO SCH (20:53)
[2016-12-28] MEDS: NORTRIPTYLINE HCL 25 MG CAP PO SCH (20:53)
[2016-12-28] MEDS: LATANOPROST 0.005% OP SOLN 2.5 ML BTL OP SCH (20:54)
[2016-12-29] VITALS (10 sets, daily range): BP systolic 120–137; BP diastolic 70–80; PULSE 88–112; TEMP 36.5–37.4; O2SAT 91–97
[2016-12-29] MEDS: ALBUT/IPRATROP 3MG/0.5MG NEB 3 ML VIAL INH PRN ×2 (04:53→15:56)
[2016-12-29] MEDS: SODIUM CHLORIDE 0.9% 1000ML 1,000 ML IV SCH ×2 (05:30→15:17)
[2016-12-29 06:06] LABS: BASO % 0.2 %; BASO ABS # 0.02 K/uL (0-0.2); EOS % 7.4 %; HEMATOCRIT 24.1 % (37-47); IG% 0.2 %; LYMPH % 12.3 %; LYMPH ABS # 1.37 K/uL (1.2-3.4); MEAN CELL VOLUME 86.7 fL (80-100); MEAN CORPUSCULAR HGB CONC 31.1 g/dl (32-36); MEAN PLATELET VOLUME 8.4 fL (7.4-10.4); MONO % 8.4 %; NEUT % 71.5 %; PLATELET COUNT 321 K/uL (130-400); RED BLOOD COUNT 2.78 M/uL (4.2-5.4); WHITE BLOOD COUNT 11.18 K/uL (4.8-10.8)
[2016-12-29 06:44] LABS: COMPLETE YES; HYPOCHROMIA PRESENT; INR 2.1 (0.9-1.1); PROTHROMBIN TIME (PATIENT) 23.7 SECONDS (9.0-12.0)
[2016-12-29 06:50] LABS: BUN/CREATININE RATIO 12.6 (10-20); CALCIUM 8.9 mg/dl (8.5-10.1); CREATININE 0.75 mg/dl (0.60-1.20); MAGNESIUM 1.7 mg/dl (1.8-2.4)
[2016-12-29] MEDS ORDERED: MAGNESIUM SULFATE 1GM / D5W 1 GM in PREMIXED IN D5W 100 ML IV STA (07:30)
[2016-12-29] MEDS: DILTIAZEM HCL 180 MG CAPCR PO SCH (07:48)
[2016-12-29] MEDS: FAMOTIDINE 20 MG TAB PO SCH (07:48)
[2016-12-29] MEDS: DOCUSATE SODIUM 100 MG CAP PO SCH ×2 (07:48→21:01)
[2016-12-29] MEDS: GABAPENTIN 100 MG CAP PO SCH ×2 (07:48→15:15)
[2016-12-29] MEDS: CEROVITE ADV FORMULA TAB PO SCH (07:48)
[2016-12-29] MEDS: FERROUS SULFATE 325 MG TAB PO SCH ×2 (07:48→21:01)
[2016-12-29] MEDS: MAGNESIUM OXIDE 400 MG TAB PO SCH ×2 (07:49→21:00)
[2016-12-29] MEDS: CLOTRIMAZOLE/BETAMETHASONE CR 15 GM TUBE EXT SCH ×2 (07:50→20:46)
[2016-12-29] MEDS: LIDODERM (LIDOCAINE) PATCH 5% TD SCH (07:50)
[2016-12-29] MEDS: TRAMADOL HCL 50 MG TAB PO PRN (11:19)
[2016-12-29] MEDS: DAPTOmycin IV 400 MG in SYRINGE 0 ML IV SCH (12:09)
--- NOTE | 2016-12-29 15:00 | Progress Note ---
Internal Med Progress Note Date of Service: Dec 29, 2016. Provider Documentation: Subjective: patient examined in the AM, patient on nasal cannula, less discomfort compared to yesterday, cooperative on exam, still feels shortness of breath and left hip pain Physical Exam HEENT: on nasal cannula Neck: no JVD, trachea midline Lungs: fair air entry on nasal cannula Heart: Heart rate between high 90s to low 100s Abdomen: soft, nontender Hip: patient expresses some pain of left hip when palpated which radiates to back Extremities: no focal deficits ASSESSMENT & PLAN: This 71-year-old female presents with shortness of breath and found to have pneumonia. 1. Pneumonia, community versus hospital acquired pneumonia. The patient has a history of MSSA in the blood cultures and wound cultures and she had two 6 weeks of antibiotics currently on daptomycin, supposed to get done on 2016. Daptomycin has poor lung penetration. She received IV Levaquin in the ER which continued as 750 mg IV q24 hours . As per ID recommendations: Continue abx , check sputum culture, flu swab, legionella antigen 2. Left hip septic arthritis, initially finished 6 weeks of IV ceftriaxone and IV vancomycin and got reinfected and again status post I&D and currently on IV daptomycin, which she is supposed to get done by 01/04/2017. The patient is supposed to get left hip surgery once done with the antibiotics at a tertiary center. Continue IV daptomycin 400 mg daily. Pain control medications 3. History of atrial fibrillation, continue diltiazem 180 mg daily and Coumadin. INR between 2 to 3 4. Chronic anemia with a hemoglobin baseline around 8-9. 5. Hypertension controlled on diltiazem 180 mg daily 6. electrolyte deficiencies: was hypokalemic and now potassium levels at goal, hypomagnesemia 1.7 on labs today and given 1 gram IV 7. Chronic kidney disease stage III 8. Deep venous thrombosis prophylaxis on Coumadin. Disposition: originally from rehab facility, admitted as inpatient Vital Signs: Date Time Temp Pulse Resp B/P (MAP) Pulse Ox O2 Delivery O2 Flow Rate FiO2 12/29/16 12:02 36.6 98 17 134/80 (98) 94 Nasal Cannula 4.0 12/29/16 12:00 Nasal Cannula 4.0 12/29/16 08:00 Nasal Cannula 4.0 12/29/16 07:18 37.4 104 20 137/70 (92) 94 Nasal Cannula 4.0 12/29/16 04:53 88 20 93 Nasal Cannula 4.0 12/29/16 04:43 36.9 104 20 123/74 (90) 94 Nasal Cannula 4.0 12/29/16 04:01 96 Nasal Cannula 3.0 12/29/16 00:49 36.5 93 19 125/71 (89) 97 Nasal Cannula 3.0 12/29/16 00:05 96 Nasal Cannula 3.0 12/28/16 20:27 36.6 100 20 150/77 (101) 95 Nasal Cannula 3.0 12/28/16 20:00 96 Nasal Cannula 3.0 12/28/16 16:00 36.7 96 18 121/70 (87) 96 Nasal Cannula 4.0 12/28/16 16:00 Nasal Cannula 4.0 Lab Results: Results Past 24 Hours Test 12/28/16 18:07 12/29/16 05:32 Range/Units White Blood Count 11.18 4.8-10.8 K/uL Red Blood Count 2.78 4.2-5.4 M/uL Hemoglobin 7.5 12.0-16.0 g/dL Hematocrit 24.1 37-47 % Mean Corpuscular Volume 86.7 80-100 fL Mean Corpuscular Hemoglobin 27.0 25-34 pg Mean Corpuscular Hemoglobin Concent 31.1 32-36 g/dl Platelet Count 321 130-400 K/uL Mean Platelet Volume 8.4 7.4-10.4 fL Neutrophils (%) (Auto) 71.5 % Lymphocytes (%) (Auto) 12.3 % Monocytes (%) (Auto) 8.4 % Eosinophils (%) (Auto) 7.4 % Basophils (%) (Auto) 0.2 % Neutrophils # (Auto) 8.00 1.4-6.5 K/uL Lymphocytes # (Auto) 1.37 1.2-3.4 K/uL Monocytes # (Auto) 0.94 0.11-0.59 K/uL Eosinophils # (Auto) 0.83 0-0.5 K/uL Basophils # (Auto) 0.02 0-0.2 K/uL RDW Standard Deviation 51.3 36.4-46.3 fL RDW Coefficient of Variation 16.1 11.5-14.5 % Immature Granulocyte % (Auto) 0.2 % Immature Granulocyte # (Auto) 0.02 0.00-0.02 K/uL Hypochromasia PRESENT Prothrombin Time 23.7 9.0-12.0 SECONDS Prothromb Time International Ratio 2.1 0.9-1.1 Sodium Level 132 136-145 mmol/L Potassium Level 4.0 3.5-5.1 mmol/L Chloride Level 98 98-107 mmol/L Carbon Dioxide Level 26 21-32 mmol/L Anion Gap 8.0 3-11 mmol/L Blood Urea Nitrogen 10 7-18 mg/dl Creatinine 0.75 0.60-1.20 mg/dl Est Creatinine Clear Calc Drug Dose 66.6 ml/min Estimated GFR () 93.6 Estimated GFR (Non- 80.8 BUN/Creatinine Ratio 12.6 10-20 Random Glucose 89 70-99 mg/dl Calcium Level 8.9 8.5-10.1 mg/dl Magnesium Level 1.7 1.8-2.4 mg/dl Microbiology Results 12/29/16 Gram Stain - Final, Resulted 12/29/16 Sputum Culture, Resulted Pending
[2016-12-29] MEDS: WARFARIN SOD 4 MG TAB PO SCH (15:22)
[2016-12-29] MEDS: HYDROmorphone HCL 2 MG TAB PO PRN ×2 (15:25→20:59)
--- NOTE | 2016-12-29 16:40 | DIAGNOSTIC IMAGING REPORT ---
CHEST ONE VIEW PORTABLE CLINICAL HISTORY: shortness of breath COMPARISON STUDY: 01-11 FINDINGS: The cardiomediastinal contours remain stable. There is a left-sided PICC catheter unchanged in position. There is a right-sided diaphragmatic hernia. There are persistent right upper lobe airspace opacities consistent with a pneumonia. Minimally increased left markings are likely atelectatic. Arthritic changes involve the shoulders.[ IMPRESSION: 1. Persistent right upper lobe airspace opacity suspicious for pneumonia. Electronically signed by: Reggie Cota M.D. 12/29/2016 4:39 PM Dictated Date/Time: 12/29/2016 4:38 PM
[2016-12-29] MEDS ORDERED: FUROSEMIDE 40 MG/4 ML VIAL IV ONE (16:45)
[2016-12-29] MEDS: LEVOFLOXACIN / D5W 750 MG in PREMIXED IN D5W 150 ML IV SCH ×2 (18:31→19:34)
[2016-12-29] MEDS: LATANOPROST 0.005% OP SOLN 2.5 ML BTL OP SCH (21:00)
[2016-12-29] MEDS: SENNA 8.6 MG TAB PO SCH (21:00)
[2016-12-29] MEDS: NORTRIPTYLINE HCL 25 MG CAP PO SCH (21:01)
[2016-12-29] MEDS: GABAPENTIN 300 MG CAP PO SCH (21:01)
[2016-12-30] VITALS (10 sets, daily range): BP systolic 120–134; BP diastolic 66–74; PULSE 94–119; TEMP 36.7–37.5; O2SAT 90–98
[2016-12-30 05:50] LABS: BASO % 0.3 %; BASO ABS # 0.03 K/uL (0-0.2); EOS % 9.3 %; IG% 0.3 %; LYMPH ABS # 1.46 K/uL (1.2-3.4); MEAN CELL VOLUME 86.1 fL (80-100); MEAN CORPUSCULAR HGB CONC 31.3 g/dl (32-36); MEAN PLATELET VOLUME 8.2 fL (7.4-10.4); MONO % 7.8 %; NEUT % 69.3 %; PLATELET COUNT 318 K/uL (130-400); RED BLOOD COUNT 2.67 M/uL (4.2-5.4); WHITE BLOOD COUNT 11.22 K/uL (4.8-10.8)
[2016-12-30 05:58] LABS: INR 2.3 (0.9-1.1); PROTHROMBIN TIME (PATIENT) 25.4 SECONDS (9.0-12.0)
[2016-12-30 06:24] LABS: BUN/CREATININE RATIO 14.6 (10-20); CALCIUM 8.7 mg/dl (8.5-10.1); CREATININE 0.79 mg/dl (0.60-1.20); MAGNESIUM 1.6 mg/dl (1.8-2.4); POTASSIUM 3.5 mmol/L (3.5-5.1)
[2016-12-30 06:26] LABS: ANISOCYTOSIS PRESENT; COMPLETE YES; HYPOCHROMIA PRESENT; POLYCHROMASIA 1+
[2016-12-30] MEDS: ALBUT/IPRATROP 3MG/0.5MG NEB 3 ML VIAL INH PRN (07:45)
[2016-12-30] MEDS: CEROVITE ADV FORMULA TAB PO SCH (08:01)
[2016-12-30] MEDS: MAGNESIUM OXIDE 400 MG TAB PO SCH ×2 (08:01→21:43)
[2016-12-30] MEDS: DILTIAZEM HCL 180 MG CAPCR PO SCH (08:01)
[2016-12-30] MEDS: GABAPENTIN 100 MG CAP PO SCH ×2 (08:01→13:52)
[2016-12-30] MEDS: FERROUS SULFATE 325 MG TAB PO SCH ×2 (08:01→21:42)
[2016-12-30] MEDS: FAMOTIDINE 20 MG TAB PO SCH (08:01)
[2016-12-30] MEDS: DOCUSATE SODIUM 100 MG CAP PO SCH ×2 (08:01→21:41)
[2016-12-30] MEDS: LIDODERM (LIDOCAINE) PATCH 5% TD SCH (08:01)
[2016-12-30] MEDS: CLOTRIMAZOLE/BETAMETHASONE CR 15 GM TUBE EXT SCH ×2 (08:02→20:17)
[2016-12-30] MEDS: ONDANSETRON INJ 2 MG/ML 2 ML VIAL IV PRN (08:08)
--- NOTE | 2016-12-30 10:29 | Progress Note ---
Internal Med Progress Note Date of Service: Dec 30, 2016. Provider Documentation: Subjective: patient was given Lasix 40 mg IV at night because of concerns for pulmonary congestion from IV fluids. IV fluids stopped. Subsequent CXR was performed. May be having more right upper lobe infiltrates. patient overnight had tachycardia. on nasal cannula. minimally mobile because of left hip and generally bedbound similar to other hospital stays. Physical Exam HEENT: on nasal cannula Neck: no JVD, trachea midline Lungs: fair air entry on nasal cannula Heart: mild tachycardia with heart rate around 100 bpm Abdomen: soft, nontender Extremities: lower extremity swelling ASSESSMENT & PLAN: This 71-year-old female presents with shortness of breath and found to have pneumonia. Pneumonia, community versus hospital acquired pneumonia. The patient has a history of MSSA in the blood cultures and wound cultures and she had two 6 weeks of antibiotics currently on daptomycin, supposed to get done on 2016. She received IV Levaquin in the ER which continued as 750 mg IV q24 hours . sputum culture 12/29/16 pending speciation, flu swab, legionella and mycoplasma tests pending results. pulmonary consult placed on 12/30/16 to assess for possibly increased infiltrates especially of right upper lobe based on CXR from 12/29/16 Left hip septic arthritis, initially finished 6 weeks of IV ceftriaxone and IV vancomycin and got reinfected and again status post I&D and currently on IV daptomycin, which she is supposed to get done by 01/04/2017. The patient is supposed to get left hip surgery once done with the antibiotics at a tertiary center. Continue IV daptomycin 400 mg daily. Pain control medications Blood culture on 12/27/16 no growth to date, repeat blood culture sent on 12/30/16 History of atrial fibrillation, continue diltiazem 180 mg daily and Coumadin. INR between 2 to 3. may need increased rate control medication if HR persistently above 110 bpm Chronic anemia with a hemoglobin baseline around 8-9. Hgb between 7 to 8 during this admission. maintain active type and screen Hypertension controlled on diltiazem 180 mg daily electrolyte deficiencies: was hypokalemic and now potassium levels at goal, hypomagnesemia 1.7 on labs today and given 1 gram IV history of CKD but renal labs on this admission has been showing estimated GFR above 75 and generally stable renal function Deep venous thrombosis prophylaxis on Coumadin. Disposition: originally from rehab facility, admitted as inpatient Vital Signs: Date Time Temp Pulse Resp B/P (MAP) Pulse Ox O2 Delivery O2 Flow Rate FiO2 12/30/16 08:00 Nasal Cannula 4.0 12/30/16 07:46 100 20 91 Nasal Cannula 4.0 12/30/16 07:12 36.7 97 18 134/74 (94) 96 Nasal Cannula 4.0 12/30/16 05:20 36.7 119 17 125/71 (89) 94 Nasal Cannula 4.0 12/30/16 04:00 Nasal Cannula 4.0 12/30/16 00:11 37.5 112 20 130/66 (87) 90 Room Air 12/30/16 00:00 Nasal Cannula 4.0 12/29/16 20:00 Nasal Cannula 4.0 12/29/16 19:42 37.4 112 18 128/78 (95) 97 2.0 12/29/16 16:00 Nasal Cannula 4.0 12/29/16 15:56 97 26 91 Nasal Cannula 4.0 12/29/16 15:46 36.8 98 18 120/70 (87) 93 Nasal Cannula 4.0 12/29/16 12:02 36.6 98 17 134/80 (98) 94 Nasal Cannula 4.0 12/29/16 12:00 Nasal Cannula 4.0 Lab Results: Results Past 24 Hours Test 12/30/16 05:34 Range/Units White Blood Count 11.22 4.8-10.8 K/uL Red Blood Count 2.67 4.2-5.4 M/uL Hemoglobin 7.2 12.0-16.0 g/dL Hematocrit 23.0 37-47 % Mean Corpuscular Volume 86.1 80-100 fL Mean Corpuscular Hemoglobin 27.0 25-34 pg Mean Corpuscular Hemoglobin Concent 31.3 32-36 g/dl Platelet Count 318 130-400 K/uL Mean Platelet Volume 8.2 7.4-10.4 fL Neutrophils (%) (Auto) 69.3 % Lymphocytes (%) (Auto) 13.0 % Monocytes (%) (Auto) 7.8 % Eosinophils (%) (Auto) 9.3 % Basophils (%) (Auto) 0.3 % Neutrophils # (Auto) 7.78 1.4-6.5 K/uL Lymphocytes # (Auto) 1.46 1.2-3.4 K/uL Monocytes # (Auto) 0.88 0.11-0.59 K/uL Eosinophils # (Auto) 1.04 0-0.5 K/uL Basophils # (Auto) 0.03 0-0.2 K/uL RDW Standard Deviation 51.3 36.4-46.3 fL RDW Coefficient of Variation 16.2 11.5-14.5 % Immature Granulocyte % (Auto) 0.3 % Immature Granulocyte # (Auto) 0.03 0.00-0.02 K/uL Polychromasia 1+ Hypochromasia PRESENT Anisocytosis PRESENT Prothrombin Time 25.4 9.0-12.0 SECONDS Prothromb Time International Ratio 2.3 0.9-1.1 Sodium Level 131 136-145 mmol/L Potassium Level 3.5 3.5-5.1 mmol/L Chloride Level 96 98-107 mmol/L Carbon Dioxide Level 28 21-32 mmol/L Anion Gap 7.0 3-11 mmol/L Blood Urea Nitrogen 12 7-18 mg/dl Creatinine 0.79 0.60-1.20 mg/dl Est Creatinine Clear Calc Drug Dose 63.7 ml/min Estimated GFR () 87.9 Estimated GFR (Non- 75.8 BUN/Creatinine Ratio 14.6 10-20 Random Glucose 91 70-99 mg/dl Calcium Level 8.7 8.5-10.1 mg/dl Magnesium Level 1.6 1.8-2.4 mg/dl Microbiology Results 12/30/16 Blood Culture, Received Pending 12/30/16 Blood Culture, Received Pending
[2016-12-30] MEDS: HYDROmorphone HCL 2 MG TAB PO PRN ×3 (10:46→23:33)
[2016-12-30] MEDS: DAPTOmycin IV 400 MG in SYRINGE 0 ML IV SCH (11:46)
--- NOTE | 2016-12-30 13:51 | PULMONARY CONSULTATION ---
DATE OF CONSULTATION: 12/30/2016 DATE OF CONSULTATION: 12/30/2016 TIME: 1:00 p.m. HISTORY OF PRESENT ILLNESS: The patient was seen in room 278 bed 1. She is a 71-year-old female who has had recurring medical problems over the past several months. Her chief complaint at the time of this admission is shortness of breath. This began on 12/26/2016. She had increasing shortness of breath and increasing cough. Her symptoms progressed. She ultimately was brought to the Emergency Room on 12/27/2016. A chest x-ray showed a right upper lobe infiltrate. She is still short of breath. She has still some cough. Her mucus has been scant. She has started to bring up some cain colored mucus. Initially the cough had been dry. She had a temperature of 100.8 as an outpatient. Since admission, her maximum temperature has been 37.6. She has not coughed up any blood. She has had a history of sepsis with MSSA back in September. She was hospitalized from September 27 through October 05 with some tachycardia. She was having hip pain at the time on the left side. She also had severe back pain. There was pain into the left groin. She also had a new onset of atrial fibrillation during that hospital stay. She was thought to have perhaps low grade CHF with diastolic dysfunction. She was admitted again from October 12 through October 18. During that hospital stay, she had persistent pain in the area of the left hip. She was felt to have left hip septic arthritis. She was then hospitalized from November 21 through November 28. At that time she underwent an incision and drainage procedure of the left hip. She previously had received 6 weeks of ceftriaxone therapy. She then developed a rash from the ceftriaxone near the end of therapy. She then was on vancomycin and she states she developed red man syndrome with this. Subsequently, she was on daptomycin and she has still been on that as an outpatient. She states she has not been home, she has been back at [facility]. Her problem during this admission is a right upper lobe pneumonia. A follow-up x-ray done December 29 showed persistent right upper lobe airspace opacity consistent with pneumonia. PAST SURGICAL HISTORY: 1. Inguinal hernia repair. 2. Left hip I&D. PAST MEDICAL HISTORY: 1. Right diaphragmatic hernia. 2. Hypertension. 3. Afib. 4. Hyperlipidemia. 5. Hyponatremia. 6. Spinal stenosis. 7. Scoliosis. SOCIAL HISTORY: Tobacco none for 5 years but previously 1-1/2 packs per day for 33 years. ETOH -- apparently was at least a moderate alcohol user in the past. 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 ALLERGIES: 1. VANCOMYCIN. 2. BRIMONIDINE 3. CEFTRIAXONE 4. CODEINE CAUSING NAUSEA, VOMITING. 5. DIPHENHYDRAMINE, WHICH CAUSED RESTLESSNESS AND AGITATION. 6. LATEX. 7. OXYCODONE WHICH GAVE NAUSEA, VOMITING. FAMILY HISTORY: Positive for esophageal cancer. MEDICATIONS AT HOME: 1. Dulcolax. 2. Bisacodyl. 3. Lotrisone cream. 4. Diltiazem CD 180 mg daily. 5. Colace. 6. Famotidine 20 mg daily. 7. Ferrous 325 mg b.i.d. 8. Gabapentin 300 mg at bedtime and 200 mg b.i.d. 9. Hydromorphone 4 mg q. 6 hours p.r.n. 10. Hydroxyzine 25 mg q. 6 p.r.n. 11. Latanoprost ophthalmic drops. 12. Ativan 0.5 p.r.n. 13. Nortriptyline 25 mg at bedtime. 14. Tramadol 50 mg q. 6 p.r.n. 15. Coumadin 4 mg daily except 2 mg on Mondays. 16. Daptomycin 400 mg daily IV. REVIEW OF SYSTEMS: Negative except for the above mentioned complaints. Overall, she does have malaise. Her appetite was down, but is starting to peanut picker today. She still has discomfort in the area of the left hip. Review of systems is otherwise negative. Ten systems were reviewed. PHYSICAL EXAMINATION: GENERAL: The patient is a 71-year-old female who was cooperative, alert and oriented. VITAL SIGNS: Temperature was 36.9. HEAD, EYES, EARS, NOSE, AND THROAT: Pupils were reactive. Nares were clear. Mouth exam showed no erythema or exudate. NECK: Palpation of the neck reveals no lymph nodes. CHEST: Showed a scoliosis. HEART: Heart rate is 94 per minute. The rhythm was regular. Blood pressure 120/69. LUNGS: Lung delaney reveals rales in the right upper anterior and to a lesser degree posterior chest. Respiratory rate 20. Saturation was 95% on 4 liters. ABDOMEN: Soft. Bowel sounds were normal. There was no tenderness to palpation. EXTREMITIES: Revealed +3 edema on the left and +2 edema on the right. She reportedly has had at least 1 or more than 1 Doppler in the past month or two on her legs. A CT angio of the chest done on 12/27/2016 shows no evidence of acute pulmonary embolic disease. She has a right-sided foramen of Morgagni hernia. There is mild mediastinal and hilar adenopathy. The maximum would be 15 mm. Some emphysema was noted. There is a right upper lobe airspace opacification consistent with pneumonia. There is some peripheral airspace opacities in the left upper lobe. LABORATORY DATA: White count today is 11.22. On admission was 13.28. Hemoglobin is 7.2. It had been 8.0 on admission. Platelets are 318,000. INR today is 2.3. Electrolytes show sodium 131, potassium 3.5, chloride 96, bicarb 28. BUN is 12 with a creatinine of 0.79. Albumin was low at 1.9. Globulin was high at 5.5. Total protein was 7.4. Lactic acid was 0.9. TSH was 1.5. EKG shows a normal sinus rhythm. Cannot exclude a septal infarct. IMPRESSIONS: 1. Pneumonia right upper lobe and to a lesser degree left upper lobe -- likely healthcare associated pneumonia. 2. Scoliosis. 3. Rule out chronic obstructive pulmonary disease. 4. Emphysema on CT. 5. Mild mediastinal adenopathy. 6. Left hip infection with methicillin-sensitive Staphylococcus aureus. COMMENTS AND RECOMMENDATIONS: The patient has a new pneumonia. I believe we have to assume this is HCAP. Infectious disease is on the case. They have for now suggested levofloxacin and continuing daptomycin. It is not clear that she is improving; however. Thus there may need to be alterations made with caution. She did have a sputum sample sent which was small quantity and likely is a contaminant. It reports moderate epithelial cells.Will re check the C&S. The patient has nebulizer treatments ordered only on a p.r.n. basis. I believe she should receive some treatments regularly rather than just p.r.n. Perhaps it would be worth checking immunoglobulins in light of her recurring infections which seem difficult to resolve. She is not aware of being immunosuppressed in any way. Dr. Talbert will be in to see her tomorrow from the pulmonary department. PANCHO
[2016-12-30] MEDS: POLYETHYLENE (MIRALAX) 17 GM PACK PO PRN (13:52)
[2016-12-30] MEDS: ALBUT/IPRATROP 3MG/0.5MG NEB 3 ML VIAL INH SCH ×2 (15:10→19:04)
[2016-12-30] MEDS: WARFARIN SOD 4 MG TAB PO SCH (15:57)
[2016-12-30] MEDS: TRAMADOL HCL 50 MG TAB PO PRN (19:29)
[2016-12-30] MEDS: LEVOFLOXACIN / D5W 750 MG in PREMIXED IN D5W 150 ML IV SCH (19:31)
[2016-12-30] MEDS: LATANOPROST 0.005% OP SOLN 2.5 ML BTL OP SCH (21:40)
[2016-12-30] MEDS: SENNA 8.6 MG TAB PO SCH (21:42)
[2016-12-30] MEDS: GABAPENTIN 300 MG CAP PO SCH (21:42)
[2016-12-30] MEDS: NORTRIPTYLINE HCL 25 MG CAP PO SCH (21:43)
[2016-12-31] VITALS (11 sets, daily range): BP systolic 110–144; BP diastolic 62–78; PULSE 92–113; TEMP 36.5–36.9; O2SAT 90–95
[2016-12-31] MEDS: HYDROmorphone HCL 2 MG TAB PO PRN ×4 (04:41→22:31)
[2016-12-31 05:58] LABS: BASO % 0.2 %; BASO ABS # 0.02 K/uL (0-0.2); EOS % 9.8 %; IG% 0.4 %; LYMPH % 12.9 %; LYMPH ABS # 1.57 K/uL (1.2-3.4); MEAN CELL VOLUME 86.1 fL (80-100); MEAN CORPUSCULAR HEMOGLOBIN 27.7 pg (25-34); MEAN CORPUSCULAR HGB CONC 32.2 g/dl (32-36); MEAN PLATELET VOLUME 8.4 fL (7.4-10.4); MONO % 6.9 %; NEUT % 69.8 %; PLATELET COUNT 376 K/uL (130-400); RED BLOOD COUNT 2.67 M/uL (4.2-5.4); WHITE BLOOD COUNT 12.13 K/uL (4.8-10.8)
[2016-12-31 06:23] LABS: INR 2.5 (0.9-1.1); PROTHROMBIN TIME (PATIENT) 27.3 SECONDS (9.0-12.0)
[2016-12-31 06:27] LABS: BUN/CREATININE RATIO 15.8 (10-20); CALCIUM 8.7 mg/dl (8.5-10.1); COMPLETE YES; CREATININE 0.96 mg/dl (0.60-1.20); MAGNESIUM 1.4 mg/dl (1.8-2.4); POTASSIUM 3.7 mmol/L (3.5-5.1)
[2016-12-31 06:39] LABS: ALB/GLOB RATIO 0.4 (0.9-2)
[2016-12-31] MEDS: ALBUT/IPRATROP 3MG/0.5MG NEB 3 ML VIAL INH SCH ×3 (07:10→20:02)
[2016-12-31] MEDS: CEROVITE ADV FORMULA TAB PO SCH (08:21)
[2016-12-31] MEDS: MAGNESIUM SULFATE 1GM / D5W 1 GM in PREMIXED IN D5W 100 ML IV SCH ×2 (08:21→09:54)
[2016-12-31] MEDS: ONDANSETRON INJ 2 MG/ML 2 ML VIAL IV PRN (08:22)
[2016-12-31] MEDS: FAMOTIDINE 20 MG TAB PO SCH (08:22)
[2016-12-31] MEDS: TRAMADOL HCL 50 MG TAB PO PRN ×2 (08:22→20:46)
[2016-12-31] MEDS: GABAPENTIN 100 MG CAP PO SCH ×2 (08:22→14:12)
[2016-12-31] MEDS: CLOTRIMAZOLE/BETAMETHASONE CR 15 GM TUBE EXT SCH ×2 (08:23→20:49)
[2016-12-31] MEDS: MAGNESIUM OXIDE 400 MG TAB PO SCH ×2 (08:23→20:49)
[2016-12-31] MEDS: DILTIAZEM HCL 180 MG CAPCR PO SCH (08:23)
[2016-12-31] MEDS: DOCUSATE SODIUM 100 MG CAP PO SCH ×2 (08:23→20:49)
[2016-12-31] MEDS: FERROUS SULFATE 325 MG TAB PO SCH ×2 (08:24→20:48)
[2016-12-31] MEDS: LIDODERM (LIDOCAINE) PATCH 5% TD SCH (08:25)
[2016-12-31] MEDS ORDERED: FUROSEMIDE 20 MG/2 ML UDP PO STA (09:52)
[2016-12-31] MEDS ORDERED: FUROSEMIDE 20 MG TAB PO ONE (10:15)
--- NOTE | 2016-12-31 10:36 | Progress Note ---
Subjective Date of Service: Dec 31, 2016. Subjective remains on levaquin and dapto, sputum with nml diego, repeat pending, pulm eval yesterday. transferred from ICU. afebrile. repeat cxr with RUL infiltrate. afebrile. tolerating abx. wbc remains elevated but improved. blood cultures remain negative. Problem List Medical Problems: (1) Abnormal white blood cell count Status: Acute (2) Anemia Status: Acute (3) Dehydration Status: Acute (4) Effusion, left hip Status: Acute (5) Fall Status: Acute (6) Fall Status: Acute (7) Fracture of neck of left femur Status: Acute (8) Hypomagnesemia Status: Acute (9) Hyponatremia Status: Acute (10) Hyponatremia Status: Acute (11) Left hip pain Status: Acute (12) Lumbar contusion Status: Acute (13) Lumbar contusion Status: Acute (14) Pelvic fracture Status: Acute (15) Pelvic fracture Status: Acute (16) PNA (pneumonia) Status: Acute (17) Sepsis Status: Acute (18) Septic arthritis Status: Acute (19) SOB (shortness of breath) Status: Acute (20) Tachycardia Status: Acute (21) UTI (urinary tract infection) Status: Acute Objective Vital Signs Date Time Temp Pulse Resp B/P (MAP) Pulse Ox O2 Delivery O2 Flow Rate FiO2 12/31/16 08:00 Nasal Cannula 4.0 12/31/16 07:26 36.8 103 18 144/74 (97) 94 Room Air 12/31/16 07:10 103 18 91 Nasal Cannula 4.0 12/31/16 03:55 36.9 105 16 124/71 (88) 94 Nasal Cannula 4.0 12/30/16 23:37 37.3 107 19 130/68 (88) 98 Nasal Cannula 4.0 12/30/16 23:30 Nasal Cannula 4.0 12/30/16 20:00 Nasal Cannula 4.0 12/30/16 19:58 36.9 113 19 131/71 (91) 93 Nasal Cannula 4.0 12/30/16 19:07 106 18 93 Nasal Cannula 4.0 12/30/16 16:00 Nasal Cannula 4.0 12/30/16 15:15 94 18 97 Nasal Cannula 4.0 12/30/16 15:14 36.7 95 16 122/70 (87) 96 Nasal Cannula 4.0 12/30/16 12:00 Nasal Cannula 4.0 12/30/16 11:41 36.9 101 18 120/69 (86) 92 Nasal Cannula 4.0 Laboratory Results Item Value Date Time Gram Stain - Final Resulted 11/23/16 0829 Abscess Hip , Left Gram Stain - Final Resulted 11/23/16 0829 Abscess Hip , Left Gram Stain - Final Resulted 11/23/16 0829 Abscess Hip , Left Gram Stain - Final Resulted 11/23/16 0801 Joint Fluid/Space (Synovial) Hip , Left Gram Stain - Final Resulted 11/23/16 0801 Joint Fluid/Space (Synovial) Hip , Left Gram Stain - Final Resulted 11/23/16 0801 Joint Fluid/Space (Synovial) Hip , Left Gram Stain - Final Resulted 11/22/16 0000 Joint Fluid/Space (Synovial) Hip , Left Blood Culture - Final Complete 11/20/16 2300 Blood NO GROWTH Blood Culture - Final Complete 11/20/16 2255 Blood NO GROWTH Blood Culture - Preliminary Resulted 12/30/16 0534 Blood NO GROWTH TO DATE. Blood Culture - Preliminary Resulted 12/30/16 0421 Blood NO GROWTH TO DATE. Gram Stain - Final Resulted 12/29/16 0452 Sputum Expectorated Sputum Blood Culture - Preliminary Resulted 12/27/16 1852 Blood NO GROWTH TO DATE. Blood Culture - Preliminary Resulted 12/27/16 1830 Blood NO GROWTH TO DATE. Last 24 Hours Test 12/31/16 05:26 White Blood Count 12.13 K/uL Red Blood Count 2.67 M/uL Hemoglobin 7.4 g/dL Hematocrit 23.0 % Mean Corpuscular Volume 86.1 fL Mean Corpuscular Hemoglobin 27.7 pg Mean Corpuscular Hemoglobin Concent 32.2 g/dl Platelet Count 376 K/uL Mean Platelet Volume 8.4 fL Neutrophils (%) (Auto) 69.8 % Lymphocytes (%) (Auto) 12.9 % Monocytes (%) (Auto) 6.9 % Eosinophils (%) (Auto) 9.8 % Basophils (%) (Auto) 0.2 % Neutrophils # (Auto) 8.46 K/uL Lymphocytes # (Auto) 1.57 K/uL Monocytes # (Auto) 0.84 K/uL Eosinophils # (Auto) 1.19 K/uL Basophils # (Auto) 0.02 K/uL RDW Standard Deviation 51.1 fL RDW Coefficient of Variation 16.1 % Immature Granulocyte % (Auto) 0.4 % Immature Granulocyte # (Auto) 0.05 K/uL Red Blood Cell Morphology Unremarkable Prothrombin Time 27.3 SECONDS Prothromb Time International Ratio 2.5 Sodium Level 131 mmol/L Potassium Level 3.7 mmol/L Chloride Level 94 mmol/L Carbon Dioxide Level 29 mmol/L Anion Gap 8.0 mmol/L Blood Urea Nitrogen 15 mg/dl Creatinine 0.96 mg/dl Est Creatinine Clear Calc Drug Dose 51.9 ml/min Estimated GFR () 69.4 Estimated GFR (Non- 59.9 BUN/Creatinine Ratio 15.8 Random Glucose 97 mg/dl Calcium Level 8.7 mg/dl Magnesium Level 1.4 mg/dl Total Bilirubin 0.2 mg/dl Aspartate Amino Transf (AST/SGOT) 19 U/L Alanine Aminotransferase (ALT/SGPT) 15 U/L Alkaline Phosphatase 82 U/L Total Protein 7.2 gm/dl Albumin 1.9 gm/dl Globulin 5.3 gm/dl Albumin/Globulin Ratio 0.4 Immunoglobulin G 1790.0 mg/dL Immunoglobulin A 279.0 mg/dL Immunoglobulin M 177.0 mg/dL Assessment and Plan (1) PNA (pneumonia) Assessment & Plan: follow repeat sputum culture (2) Septic arthritis Assessment & Plan: will remain on dapto
[2016-12-31 11:25] LABS: LEGIONELLA ANTIGEN NOT DETECTED (NOT DETECTED)
[2016-12-31] MEDS: DAPTOmycin IV 400 MG in SYRINGE 0 ML IV SCH (12:07)
--- NOTE | 2016-12-31 14:35 | Pulmonology Progress Note ---
Pulmonary Progress Note Date of Service Dec 31, 2016. Attending Dr. Talbert Subjective Patient seen and examined. She is out of bed to chair. She states she's feeling better than how she felt on admission. She was transferred out of the ICU yesterday. Able to walk about 10 feet with assistance. She still remains dyspneic on exertion. She still has a harsh nonproductive cough and complains of bilateral lower extremity edema. Objective Vital signs reviewed. MAXIMUM TEMPERATURE 36.9, blood pressure 110/62 to 144/74 , pulse 97-105, respiratory rate 16-18, pulse oximetry 91-94% on 4 L nasal cannula. Gen.: Awake, alert, oriented 3. Out of bed to chair. CVS: S1 and S2 irregularly irregular. Lungs: Good air entry bilaterally, no crackles or wheezes. Speaking in full sentences without respiratory distress. Abdomen: Soft, nontender, nondistended, bowel sounds positive Extremities: Left lower extremity greater than right lower extremity 3+ pitting edema, no clubbing, no cyanosis. Labs reviewed. White blood cell count 12 Eosinophil 0.66, 0.54, 0.83, 1.04, 1.19. Hemoglobin 7.4 from 7.2 Platelet 376 Sodium 131, chloride 94, albumin 1.9. INR 2.5, PTT 27.3 IgG 1880, IgA 288, IgM 186 Urine Legionella not detected Mycoplasma pneumonia IgM pending Sputum culture from 12/29/2016 shows heavy normal diego. Blood cultures from 12/27/2016 and 12/30/2016 showing no growth to date. Imaging reviewed and reviewed by me. TTE 09/28/2016 * -- Conclusions -- * Normal LV chamber size and wall thickness. * Normal LV systolic function, EF 60-65%. * No segmental left ventricular wall motion abnormalities are noted. * Grade I diastolic dysfunction. * Trace aortic regurgitation. * No valvular lesions identified within the scope of this imaging modality. Medications reviewed. Assessment & Plan Hypoxemia. Right upper lobe pneumonia . Eosinophilia. Anemia of chronic disease. Hypoalbuminemia. Right Hiatal hernia. MSSA left hip. Atrial fibrillation. Ms. Dawn is a 71-year-old female with septic arthritis of left hip joint. She presents with hypoxemia most likely secondary to right upper lobe pneumonia. Of note patient has eosinophilia on her CBC, which could represent underlying infectious vs immunologic/allergic process. She also has diastolic dysfunction as well as hypoalbuminemia which can be contributing to some of her symptoms. At the current time I would like to send off IgE, Aspergillus antibody, Fungitell. Urine Legionella is negative. Mycoplasma IgM still pending. ALETA and ANCA screens were negative in September. I will send ESR and CRP although I'm aware that this may be elevated to underlying infection of her hip. Depending on these labs, may consider starting steroid taper. Continue with treatment for pneumonia with Levaquin and daptomycin for right hip , per ID recommendations. Continue with oxygen supplementation to maintain SaO2 above 92%. Continue to optimize blood pressure and heart rate. She'll benefit from full PFTs as an outpatient. Will order flutter valve. She also has a right Morgagni hernia, which should be reevaluated when she is medically optimized. Obtain speech and swallow eval as she may be silently aspirating. Continue the PPI. She also may benefit from protein supplementation as she does have significant hypoalbuminemia. Replete electrolytes per primary team. Her left lower extremity is markedly increased in sized compared to right. Recommend bilateral lower extremity dopplers. Continue with Coumadin for anticoagulation. per primary team. Data Medications: Current Inpatient Medications Medications (Trade) Dose Ordered Sig/Viviane Route Start Time Stop Time Status Last Admin Dose Admin Ioversol (Optiray 320) 100 ml UD PRN IV 12/27/16 18:15 12/31/16 18:14 Al Hydrox/Mg Hydrox/Simethicone (Maalox Max Susp) 15 ml Q4H PRN PO 12/27/16 21:45 01/26/17 21:44 Magnesium Hydroxide (Milk Of Magnesia Susp) 30 ml Q12H PRN PO 12/27/16 21:45 01/26/17 21:44 Ondansetron HCl (Zofran Inj) 4 mg Q6H PRN IV 12/27/16 21:45 01/26/17 21:44 12/31/16 08:22 4 MG Nitroglycerin (Nitrostat Tab) 0.4 mg UD PRN SL 12/27/16 21:45 01/26/17 21:44 Polyethylene (Miralax Powder Packet) 17 gm DAILY PRN PO 12/27/16 21:45 01/26/17 21:44 12/30/16 13:52 17 GM Acetaminophen (Tylenol Tab) 500 mg Q4 PRN PO 12/27/16 21:45 01/26/17 21:44 Bisacodyl (Dulcolax Tab) 5 mg UD PRN PO 12/27/16 21:45 01/26/17 21:44 Bisacodyl (Dulcolax Supp) 10 mg DAILY PRN W[place] 12/27/16 21:45 01/26/17 21:44 Betamethasone/ Clotrimazole (Lotrisone Crm) 1 appln BID EXT 12/28/16 09:00 01/27/17 08:59 12/28/16 08:25 1 APPLN Docusate Sodium (coLACE CAP) 100 mg BID PO 12/28/16 09:00 01/27/17 08:59 12/31/16 08:23 100 MG Famotidine (Pepcid Tab) 20 mg QAM PO 12/28/16 09:00 01/27/17 08:59 12/31/16 08:22 20 MG Gabapentin (Neurontin Cap) 300 mg HS PO 12/28/16 21:00 01/27/17 20:59 12/30/16 21:42 300 MG Hydromorphone HCl (Dilaudid Tab) 4 mg Q4 PRN PO 12/27/16 21:45 01/10/17 21:44 12/31/16 10:34 4 MG Hydroxyzine HCl (Vistaril Tab) 25 mg Q6H PRN PO 12/27/16 21:45 01/26/17 21:44 Latanoprost (Xalatan Oph Soln) 1 drops HS OP 12/28/16 21:00 01/27/17 20:59 12/30/16 21:40 1 DROPS Lorazepam (Ativan Tab) 0.5 mg TID PRN PO 12/27/16 21:45 01/26/17 21:44 12/28/16 20:49 0.5 MG Multivitamins/ Minerals (Multivitamin W/ Minerals Tab) 1 tab DAILY PO 12/28/16 09:00 01/27/17 08:59 12/31/16 08:21 1 TAB Nortriptyline HCl (Pamelor Cap) 25 mg HS PO 12/28/16 21:00 01/27/17 20:59 12/30/16 21:43 25 MG Ondansetron HCl (Zofran Odt) 4 mg Q6H PRN SL 12/27/16 21:45 01/26/17 21:44 12/28/16 08:25 4 MG Senna (Senokot Tab) 17.2 mg HS PO 12/28/16 21:00 01/27/17 20:59 12/30/16 21:42 17.2 MG Sodium Biphosphate/ Sodium Phosphate (Fleet Enema) 30 ml DAILY PRN W[place] 12/27/16 21:45 01/26/17 21:44 Tramadol HCl (Ultram Tab) 50 mg Q6 PRN PO 12/27/16 21:45 01/26/17 21:44 12/31/16 08:22 50 MG Ferrous Sulfate (Feosol Tab) 325 mg BID PO 12/28/16 09:00 01/27/17 08:59 12/31/16 08:24 325 MG Levofloxacin 750 mg/Prmx 150 ml @ 100 mls/hr Q24H IV 12/28/16 19:00 01/02/17 20:29 12/30/16 19:31 100 MLS/HR Diltiazem HCl (Cardizem Cd Cap) 180 mg DAILY PO 12/28/16 09:00 01/27/17 08:59 12/31/16 08:23 180 MG Warfarin Sodium (Coumadin Tab) 2 mg Mo@1600 PO 12/31/16 16:00 01/30/17 15:59 Gabapentin (Neurontin Cap) 200 mg BID@0800,1400 PO 12/28/16 08:00 01/27/17 07:59 12/31/16 08:22 200 MG Warfarin Sodium (Coumadin Tab) 4 mg SuTuWeThFrSa@1600 PO 12/28/16 16:00 01/27/17 15:59 12/30/16 15:57 4 MG Levofloxacin (Consult) 1 ea UD PRN N/A 12/27/16 23:15 01/26/17 23:14 Heparin Sodium (Porcine) (Heparin 10 Unit/ ml 5 ml Flush) 5 ml PRN PRN FLUSH 12/28/16 00:15 01/27/17 00:14 12/31/16 12:06 5 ML Lidocaine (Lidoderm Patch 5%) 1 patch DAILY@0900 TD 12/28/16 09:00 12/3/17 08:59 12/31/16 08:25 1 PATCH Miscellaneous (Remove Lidoderm Patch) 1 ea DAILY@2100 N/A 12/28/16 21:00 01/27/17 20:59 12/30/16 21:41 1 EA Daptomycin 400 mg/ Syringe 8 ml @ 4 mls/min DAILY@1200 IV 12/28/16 12:00 01/05/17 12:01 12/31/16 12:07 4 MLS/MIN Magnesium Oxide (Mag-Ox Tab) 400 mg BID PO 12/28/16 09:00 01/27/17 08:59 12/31/16 08:23 400 MG Albuterol/ Ipratropium (Duoneb) 3 ml QIDR INH 12/30/16 16:00 01/29/17 15:59 12/31/16 11:14 3 ML Vital Signs: Date Time Temp Pulse Resp B/P (MAP) Pulse Ox O2 Delivery O2 Flow Rate FiO2 12/31/16 11:37 36.5 97 18 110/62 (78) 93 Nasal Cannula 4.0 12/31/16 11:14 99 18 93 Nasal Cannula 4.0 12/31/16 08:00 Nasal Cannula 4.0 12/31/16 07:26 36.8 103 18 144/74 (97) 94 Room Air 12/31/16 07:10 103 18 91 Nasal Cannula 4.0 12/31/16 03:55 36.9 105 16 124/71 (88) 94 Nasal Cannula 4.0 12/30/16 23:37 37.3 107 19 130/68 (88) 98 Nasal Cannula 4.0 12/30/16 23:30 Nasal Cannula 4.0 12/30/16 20:00 Nasal Cannula 4.0 12/30/16 19:58 36.9 113 19 131/71 (91) 93 Nasal Cannula 4.0 12/30/16 19:07 106 18 93 Nasal Cannula 4.0 12/30/16 16:00 Nasal Cannula 4.0 12/30/16 15:15 94 18 97 Nasal Cannula 4.0 12/30/16 15:14 36.7 95 16 122/70 (87) 96 Nasal Cannula 4.0 Laboratory Results: Last 24 Hours Test 12/31/16 05:26 White Blood Count 12.13 K/uL Red Blood Count 2.67 M/uL Hemoglobin 7.4 g/dL Hematocrit 23.0 % Mean Corpuscular Volume 86.1 fL Mean Corpuscular Hemoglobin 27.7 pg Mean Corpuscular Hemoglobin Concent 32.2 g/dl Platelet Count 376 K/uL Mean Platelet Volume 8.4 fL Neutrophils (%) (Auto) 69.8 % Lymphocytes (%) (Auto) 12.9 % Monocytes (%) (Auto) 6.9 % Eosinophils (%) (Auto) 9.8 % Basophils (%) (Auto) 0.2 % Neutrophils # (Auto) 8.46 K/uL Lymphocytes # (Auto) 1.57 K/uL Monocytes # (Auto) 0.84 K/uL Eosinophils # (Auto) 1.19 K/uL Basophils # (Auto) 0.02 K/uL RDW Standard Deviation 51.1 fL RDW Coefficient of Variation 16.1 % Immature Granulocyte % (Auto) 0.4 % Immature Granulocyte # (Auto) 0.05 K/uL Red Blood Cell Morphology Unremarkable Prothrombin Time 27.3 SECONDS Prothromb Time International Ratio 2.5 Sodium Level 131 mmol/L Potassium Level 3.7 mmol/L Chloride Level 94 mmol/L Carbon Dioxide Level 29 mmol/L Anion Gap 8.0 mmol/L Blood Urea Nitrogen 15 mg/dl Creatinine 0.96 mg/dl Est Creatinine Clear Calc Drug Dose 51.9 ml/min Estimated GFR () 69.4 Estimated GFR (Non- 59.9 BUN/Creatinine Ratio 15.8 Random Glucose 97 mg/dl Calcium Level 8.7 mg/dl Magnesium Level 1.4 mg/dl Total Bilirubin 0.2 mg/dl Aspartate Amino Transf (AST/SGOT) 19 U/L Alanine Aminotransferase (ALT/SGPT) 15 U/L Alkaline Phosphatase 82 U/L Total Protein 7.2 gm/dl Albumin 1.9 gm/dl Globulin 5.3 gm/dl Albumin/Globulin Ratio 0.4 Immunoglobulin G 1790.0 mg/dL Immunoglobulin A 279.0 mg/dL Immunoglobulin M 177.0 mg/dL
[2016-12-31 15:30] LABS: RHEUMATOID FACTOR 12.6 U/mL (0-15)
[2016-12-31] MEDS ORDERED: WARFARIN SOD 4 MG TAB PO SCH (16:00)
--- NOTE | 2016-12-31 16:31 | Progress Note ---
Internal Med Progress Note Date of Service: Dec 31, 2016. Provider Documentation: Subjective: patient was given Lasix 20 mg PO for bilateral lower extremity edema , on nasal cannula, main issues have been shortness of breath, denies acute pain Physical Exam HEENT: on nasal cannula Neck: no JVD, trachea midline Lungs: fair air entry on nasal cannula Heart: mild tachycardia with heart rate around 100 bpm Abdomen: soft, nontender Extremities: bilateral lower extremity swelling ASSESSMENT & PLAN: This 71-year-old female presents with shortness of breath and found to have pneumonia. Pneumonia, community versus hospital acquired pneumonia. The patient has a history of MSSA in the blood cultures and wound cultures and she had two 6 weeks of antibiotics currently on daptomycin, supposed to get done on 2016. She received IV Levaquin in the ER which continued as 750 mg IV q24 hours . sputum culture 12/29/16 pending speciation, flu swab, legionella and mycoplasma tests pending results. pulmonary consult placed on 12/30/16 to assess for possibly increased infiltrates especially of right upper lobe based on CXR from 12/29/16. Further pulmonary recommendations on 01/01/17: send off IgE, Aspergillus antibody, Fungitell Left hip septic arthritis, initially finished 6 weeks of IV ceftriaxone and IV vancomycin and got reinfected and again status post I&D and currently on IV daptomycin, which she is supposed to get done by 01/04/2017. The patient is supposed to get left hip surgery once done with the antibiotics at a tertiary center. Continue IV daptomycin 400 mg daily. Pain control medications Blood culture on 12/27/16 no growth to date, repeat blood culture sent on 12/30/16 History of atrial fibrillation, continue diltiazem 180 mg daily and Coumadin. INR between 2 to 3. heart rate between 90s to 100 beats per minute, may need increased rate control medication if HR persistently above 110 bpm Ultrasound Lower extremity 12/31/16 Trace chronic appearing thrombus is questioned within the left common femoral vein. There are no additional findings concerning for deep venous thrombosis identified in the right or left lower extremity. The common femoral, superficial femoral, and popliteal veins are patent and normally compressible bilaterally. The greater saphenous vein and the profunda femoris vein at the junction with the common femoral vein are clear in both legs. The visualized calf veins are patent bilaterally. Subcutaneous soft tissue edema is present in both legs. patient has been receiving Lasix intermittently for the lower extremity swelling , order TTE of the heart for 01/01/17 Chronic anemia with a hemoglobin baseline around 8-9. Hgb between 7 to 8 during this admission. maintain active type and screen Hypertension controlled on diltiazem 180 mg daily electrolyte deficiencies: was hypokalemic and now potassium levels at goal, hypomagnesemia 1.7 on labs today and given 1 gram IV history of CKD but renal labs on this admission has been showing estimated GFR above 75 and generally stable renal function Deep venous thrombosis prophylaxis on Coumadin. Disposition: originally from rehab facility, admitted as inpatient Vital Signs: Date Time Temp Pulse Resp B/P (MAP) Pulse Ox O2 Delivery O2 Flow Rate FiO2 12/31/16 14:57 36.7 92 18 125/73 (90) 92 Nasal Cannula 4.0 12/31/16 12:00 Nasal Cannula 4.0 12/31/16 11:37 36.5 97 18 110/62 (78) 93 Nasal Cannula 4.0 12/31/16 11:14 99 18 93 Nasal Cannula 4.0 12/31/16 08:00 Nasal Cannula 4.0 12/31/16 07:26 36.8 103 18 144/74 (97) 94 Room Air 12/31/16 07:10 103 18 91 Nasal Cannula 4.0 12/31/16 03:55 36.9 105 16 124/71 (88) 94 Nasal Cannula 4.0 12/30/16 23:37 37.3 107 19 130/68 (88) 98 Nasal Cannula 4.0 12/30/16 23:30 Nasal Cannula 4.0 12/30/16 20:00 Nasal Cannula 4.0 12/30/16 19:58 36.9 113 19 131/71 (91) 93 Nasal Cannula 4.0 12/30/16 19:07 106 18 93 Nasal Cannula 4.0 Lab Results: Results Past 24 Hours Test 12/31/16 05:26 12/31/16 14:34 Range/Units White Blood Count 12.13 4.8-10.8 K/uL Red Blood Count 2.67 4.2-5.4 M/uL Hemoglobin 7.4 12.0-16.0 g/dL Hematocrit 23.0 37-47 % Mean Corpuscular Volume 86.1 80-100 fL Mean Corpuscular Hemoglobin 27.7 25-34 pg Mean Corpuscular Hemoglobin Concent 32.2 32-36 g/dl Platelet Count 376 130-400 K/uL Mean Platelet Volume 8.4 7.4-10.4 fL Neutrophils (%) (Auto) 69.8 % Lymphocytes (%) (Auto) 12.9 % Monocytes (%) (Auto) 6.9 % Eosinophils (%) (Auto) 9.8 % Basophils (%) (Auto) 0.2 % Neutrophils # (Auto) 8.46 1.4-6.5 K/uL Lymphocytes # (Auto) 1.57 1.2-3.4 K/uL Monocytes # (Auto) 0.84 0.11-0.59 K/uL Eosinophils # (Auto) 1.19 0-0.5 K/uL Basophils # (Auto) 0.02 0-0.2 K/uL RDW Standard Deviation 51.1 36.4-46.3 fL RDW Coefficient of Variation 16.1 11.5-14.5 % Immature Granulocyte % (Auto) 0.4 % Immature Granulocyte # (Auto) 0.05 0.00-0.02 K/uL Red Blood Cell Morphology Unremarkable Prothrombin Time 27.3 9.0-12.0 SECONDS Prothromb Time International Ratio 2.5 0.9-1.1 Sodium Level 131 136-145 mmol/L Potassium Level 3.7 3.5-5.1 mmol/L Chloride Level 94 98-107 mmol/L Carbon Dioxide Level 29 21-32 mmol/L Anion Gap 8.0 3-11 mmol/L Blood Urea Nitrogen 15 7-18 mg/dl Creatinine 0.96 0.60-1.20 mg/dl Est Creatinine Clear Calc Drug Dose 51.9 ml/min Estimated GFR () 69.4 Estimated GFR (Non- 59.9 BUN/Creatinine Ratio 15.8 10-20 Random Glucose 97 70-99 mg/dl Calcium Level 8.7 8.5-10.1 mg/dl Magnesium Level 1.4 1.8-2.4 mg/dl Total Bilirubin 0.2 0.2-1 mg/dl Aspartate Amino Transf (AST/SGOT) 19 15-37 U/L Alanine Aminotransferase (ALT/SGPT) 15 12-78 U/L Alkaline Phosphatase 82 45-117 U/L Total Protein 7.2 6.4-8.2 gm/dl Albumin 1.9 3.4-5.0 gm/dl Globulin 5.3 2.5-4.0 gm/dl Albumin/Globulin Ratio 0.4 0.9-2 Immunoglobulin G 1790.0 700-1600 mg/dL Immunoglobulin A 279.0 70-400 mg/dL Immunoglobulin M 177.0 40-230 mg/dL Erythrocyte Sedimentation Rate 32 0-21 mm/hr C-Reactive Protein 22.00 0-0.29 mg/dl Pro-B-Type Natriuretic Peptide 622 0-900 pg/ml Rheumatoid Factor 12.6 0-15 U/mL
--- NOTE | 2016-12-31 16:37 | DIAGNOSTIC IMAGING REPORT ---
ULTRASOUND BILATERAL LOWER EXTREMITY VENOUS CLINICAL HISTORY: Dyspnea. Pneumonia. Clinical concern for deep venous thrombosis. COMPARISON STUDY: Right lower extremity venous ultrasound dated 10/17/2016. Left lower extremity venous ultrasound dated 10/12/2016. TECHNIQUE: Real-time, grayscale, and color Doppler sonography of the deep veins of the right and left lower extremity was performed from the inguinal crease to the calf. Compression and augmentation were utilized. FINDINGS: Trace chronic appearing thrombus is questioned within the left common femoral vein. There are no additional findings concerning for deep venous thrombosis identified in the right or left lower extremity. The common femoral, superficial femoral, and popliteal veins are patent and normally compressible bilaterally. The greater saphenous vein and the profunda femoris vein at the junction with the common femoral vein are clear in both legs. The visualized calf veins are patent bilaterally. Subcutaneous soft tissue edema is present in both legs. IMPRESSION: 1. Question trace chronic thrombus within the left common femoral vein. 2. There is no sonographic evidence of acute deep venous thrombosis identified in the right or left lower extremity. Electronically signed by: Rivera Díaz M.D. 12/31/2016 4:36 PM Dictated Date/Time: 12/31/2016 4:34 PM
[2016-12-31] MEDS: WARFARIN SOD 2 MG TAB PO SCH (17:18)
[2016-12-31] MEDS: LEVOFLOXACIN / D5W 750 MG in PREMIXED IN D5W 150 ML IV SCH (20:46)
[2016-12-31] MEDS: SENNA 8.6 MG TAB PO SCH (20:48)
[2016-12-31] MEDS: GABAPENTIN 300 MG CAP PO SCH (20:49)
[2016-12-31] MEDS: NORTRIPTYLINE HCL 25 MG CAP PO SCH (20:49)
[2016-12-31] MEDS: LATANOPROST 0.005% OP SOLN 2.5 ML BTL OP SCH (20:50)
[2017-01-01] VITALS (15 sets, daily range): BP systolic 116–139; BP diastolic 54–80; PULSE 98–114; TEMP 36.7–38; O2SAT 90–97
[2017-01-01] MEDS: HYDROmorphone HCL 2 MG TAB PO PRN ×4 (05:14→22:17)
[2017-01-01 07:20] LABS: INR 2.3 (0.9-1.1); PROTHROMBIN TIME (PATIENT) 25.3 SECONDS (9.0-12.0)
[2017-01-01] MEDS: ALBUT/IPRATROP 3MG/0.5MG NEB 3 ML VIAL INH SCH ×4 (07:20→19:25)
[2017-01-01] MEDS ORDERED: PERFLUTREN LIPID MICROSPHERE (DEFINITY) IV ONE (08:11)
[2017-01-01] MEDS: FERROUS SULFATE 325 MG TAB PO SCH ×2 (09:06→22:16)
[2017-01-01] MEDS: MAGNESIUM OXIDE 400 MG TAB PO SCH ×2 (09:06→22:13)
[2017-01-01] MEDS: FAMOTIDINE 20 MG TAB PO SCH (09:07)
[2017-01-01] MEDS: DOCUSATE SODIUM 100 MG CAP PO SCH ×2 (09:07→22:16)
[2017-01-01] MEDS: DILTIAZEM HCL 180 MG CAPCR PO SCH (09:07)
[2017-01-01] MEDS: CLOTRIMAZOLE/BETAMETHASONE CR 15 GM TUBE EXT SCH ×2 (09:08→22:14)
[2017-01-01] MEDS: LIDODERM (LIDOCAINE) PATCH 5% TD SCH (09:08)
[2017-01-01] MEDS: GABAPENTIN 100 MG CAP PO SCH ×3 (09:08→22:14)
[2017-01-01] MEDS: CEROVITE ADV FORMULA TAB PO SCH (09:09)
[2017-01-01] MEDS: TRAMADOL HCL 50 MG TAB PO PRN (09:15)
--- NOTE | 2017-01-01 09:45 | ECHOCARDIOGRAM REPORT ---
*NOTICE TO RECEIVING DEMOCRAT AGENCY This information is strictly Confidential and protected under [place] law. [place] law prohibits you from making any further disclosure of this information unless further disclosure is expressly permitted by the written consent of the person to whom it pertains or is authorized by law. A general authorization for the release of medical or other information is not sufficient for this purpose. Hospital accepts no responsibility if the information is made available to any other person, INCLUDING THE PATIENT. Interpretation Summary * Name: ELLY BLEDSOE Study Date: 01/01/2017 06:48 AM BP: 116/63 mmHg * Patient Location: [facility]\S\N278\S\1 HR: 108 * : 1945 (M/d/yyy) Gender: Female Height: 63 in * Age: 71 yrs Ethnicity: CA Weight: 159 lb * Ordering Physician: John Milan * Referring Physician: Fabio Abernathy * Performed By: Radha Baez RDCS * * Reason For Study: Lower extremity edema * BSA: 1.8 m2 * -- Conclusions -- * Normal LV chamber size with mild concentric LVH. * Normal LV systolic function without regional wall motion abnormality, EF 60-65%. * Grade II diastolic dysfunction. * Aortic valve sclerosis mild, without significant aortic valvular stenosis. * Mild left atrial enlargement. Procedure Details * A complete two-dimensional transthoracic echocardiogram was performed (2D, M-mode, Doppler and color flow Doppler). * The study was technically difficult. * The study was technically difficult, but visualization was adequate with the administration of Definity ultrasound contrast. * There were technical limitations due to patient'spoor positioning * A contrast injection of Definity was performed to improve assessment of LV function. * Contrast was injected into an intravenous site in the left arm. * One vial of Definity ultrasound contrast was diluted in normal saline to a total volume of 10 ml. A total of '2' ml of solution was administered during imaging. * Lot # [id number] of Definity utilized for procedure. * Expiration date 1Dec18. * The attending nurse who injected the contrast agent was Ema Sprague RN. Left Ventricle * The left ventricle is normal in size. * There is mild concentric left ventricular hypertrophy. * Ejection Fraction = 60-65%. * The left ventricular wall motion is normal. Right Ventricle * The right ventricular cavity size is normal (basal dimension <4.2 cm in right ventricular apical 4-chamber view). * The right ventricular systolic function is normal as assessed by tricuspid annular plane systolic excursion (TAPSE) (normal >1.5 cm). Atria * The left atrium is mildly dilated. * Right atrial size is normal. * No ASD detected; PFO is not assessed. Mitral Valve * The mitral valve is normal in structure and function. Tricuspid Valve * The tricuspid valve is normal in structure and function. Aortic Valve * The aortic valve is tricuspid. The leaflet thickness if normal. There is no aortic stenosis, and no significant insufficiency. * Aortic valve sclerosis mild, without significant aortic valvular stenosis. * No hemodynamically significant valvular aortic stenosis. * There is no significant aortic regurgitation. Pulmonic Valve * The pulmonary valve is not well seen, but the Doppler examination is normal without significant regurgitation or stenosis. Great Vessels * The aortic root is normal size. Pericardium/Pleural * There is no pericardial effusion. Left Ventricular Diastolic Function * Diastolic dysfunction, Grade II (pseudonormalization pattern). MMode 2D Measurements and Calculations IVSd 0.94 cm IVSs 1.4 cm LVIDd 4.5 cm LVIDs 2.9 cm LVPWd 0.99 cm LVPWs 1.4 cm IVS/LVPW 0.96 FS 36.8 % EDV(Teich) 94.2 ml ESV(Teich) 31.3 ml EF(Teich) 66.8 % EDV(cubed) 93.4 ml ESV(cubed) 23.6 ml EF(cubed) 74.8 % % IVS thick 47.0 % % LVPW thick 45.3 % LV mass(C)d 147.8 grams LV mass(C)dI 84.3 grams/m\S\2 LV mass(C)s 133.9 grams LV mass(C)sI 76.3 grams/m\S\2 SV(Teich) 62.9 ml SI(Teich) 35.9 ml/m\S\2 SV(cubed) 69.8 ml SI(cubed) 39.8 ml/m\S\2 Ao root diam 3.3 cm Ao root area 8.7 cm\S\2 ACS 2.2 cm LA dimension 4.3 cm LA/Ao 1.3 LVAd ap4 28.9 cm\S\2 LVLd ap4 8.6 cm EDV(MOD-sp4) 80.3 ml EDV(sp4-el) 82.4 ml LVAs ap4 16.2 cm\S\2 LVLs ap4 7.1 cm ESV(MOD-sp4) 32.8 ml ESV(sp4-el) 31.4 ml EF(MOD-sp4) 59.2 % EF(sp4-el) 61.9 % LVAd ap2 29.3 cm\S\2 LVLd ap2 8.3 cm EDV(MOD-sp2) 87.9 ml EDV(sp2-el) 87.5 ml LVAs ap2 15.0 cm\S\2 LVLs ap2 6.6 cm ESV(MOD-sp2) 29.9 ml ESV(sp2-el) 28.9 ml EF(MOD-sp2) 66.0 % EF(sp2-el) 67.0 % LVLd %diff -3.22 % EDV(MOD-bp) 86.4 ml LVLs %diff -7.53 % ESV(MOD-bp) 32.6 ml EF(MOD-bp) 62.2 % SV(MOD-sp4) 47.5 ml SI(MOD-sp4) 27.1 ml/m\S\2 SV(MOD-sp2) 58.0 ml SI(MOD-sp2) 33.1 ml/m\S\2 SV(MOD-bp) 53.8 ml SI(MOD-bp) 30.7 ml/m\S\2 SV(sp4-el) 51.0 ml SI(sp4-el) 29.1 ml/m\S\2 SV(sp2-el) 58.6 ml SI(sp2-el) 33.4 ml/m\S\2 Doppler Measurements and Calculations MV E max segundo 105.7 cm/sec MV A max segundo 37.3 cm/sec MV E/A 2.8 MV dec time 0.16 sec Ao V2 max 171.0 cm/sec Ao max PG 11.7 mmHg Ao max PG (full) 6.4 mmHg LV V1 max PG 5.3 mmHg LV V1 max 115.1 cm/sec PA V2 max 129.2 cm/sec PA max PG 6.7 mmHg TR max segundo 251.5 cm/sec
--- NOTE | 2017-01-01 10:07 | CARDIOLOGY CONSULTATION ---
DATE OF CONSULTATION: 01/01/2017 DATE OF CONSULTATION: 01/01/2017 CONSULTATION REQUESTED BY: Dr. Milan. REASON FOR CONSULTATION: Patient requesting cardiology evaluation. HISTORY OF PRESENT ILLNESS: Ms. Cool is a very pleasant 71-year-old woman who has been seen by Dr. Harrison of our cardiology practice previously for history of paroxysmal atrial fibrillation. The patient presented to [facility] on 12/27/2016 with a complaint of shortness of breath. In the Emergency Department, she was found to be hypoxic with pneumonia and she was admitted to telemetry for antibiotics as well as supplemental oxygenation. Upon presentation, she was in sinus tachycardia and she has remained in sinus rhythm/sinus tachycardia throughout her hospitalization. She has not had any episodes of atrial fibrillation. She has been maintained on her outpatient Cardizem and Coumadin. Her INR has remained therapeutic. She was concerned of the management of her heart rates and she asked for cardiology to see her. Currently, she is resting comfortably in bed. She states that her breathing is somewhat improved from presentation; however, not significantly. Otherwise she denies any chest pain, palpitations, lightheadedness, dizziness, or syncope. She states that she has not felt as though she has gone back into atrial fibrillation. Of note, the patient was recently hospitalized at [facility] for a wound infection after hip surgery and the patient went into atrial fibrillation with rapid ventricular response at that time. She was started on Cardizem and anticoagulation and spontaneously converted to normal sinus rhythm on her own. PAST SURGICAL HISTORY: 1. Hernia repair. 2. Spinal surgery with scoliosis correction. 3. Hip surgery. 4. Colonoscopy. PAST MEDICAL HISTORY: 1. Paroxysmal atrial fibrillation on chronic anticoagulation with a CHADS-VASC score of 3. 2. Hypertension. 3. Dyslipidemia. 4. Avascular necrosis of the hip. 5. Stage III chronic kidney disease. FAMILY HISTORY: Noncontributory. SOCIAL HISTORY: The patient is a former smoker, quit in 2011. Drinks occasional alcohol. Denies any recreational drug use. REVIEW OF SYSTEMS: As per HPI, all other review of systems reviewed and negative at this time. ALLERGIES: 1. BRIMONIDINE TARTRATE EYEDROPS. 2. CODEINE. 3. LATEX. 4. NICKEL. 5. PERCOCET. 6. ROCEPHIN. 7. 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 MEDICATIONS CURRENTLY: 1. Cardizem-CD 180 mg daily. 2. Coumadin 2 mg daily as dictated by her INR. 3. Nebulizer treatments. 4. Neurontin. 5. Nortriptyline. 6. Lidoderm patch. 7. Colace. 8. Pepcid 9. Magnesium oxide. 10. Levofloxacin daily. 11. Daptomycin daily. PHYSICAL EXAMINATION: VITALS: Temperature 37.1, pulse 112, respiratory rate 12, blood pressure 125/74, saturating 93% on 4 liters nasal cannula. GENERAL: Awake, alert, oriented x3 in no acute distress. Nasal cannula in place. HEAD, EYES, EARS, NOSE, AND THROAT: Normocephalic, atraumatic. Pupils equal, round, and reactive to light and accommodation. Extraocular muscles intact. Anicteric sclerae. Moist mucous membranes. NECK: No JVD, no bruit. CARDIOVASCULAR: Regular but fast. PULMONARY: Scant bibasilar rhonchi with diffuse wheezing, no rales. ABDOMEN: Bowel sounds x4, soft. No rebound, guarding, tenderness. No organomegaly. EXTREMITIES: +2 bilateral lower extremity pitting edema. +2 pedal pulses bilaterally. SKIN: Warm and dry. TEST RESULTS: A 12-lead EKG performed today independently reviewed at this time shows sinus tachycardia at 112 beats per minute, normal axis, normal intervals, otherwise normal study. Review of telemetry monitoring shows sinus tachycardia, this is the predominant rhythm with no significant arrhythmias or ectopy. A 2D echocardiogram performed 09/28/2016 was read as normal LV chamber size and wall thickness, normal LV systolic function, EF 60-65%, no segmental left ventricular wall motion abnormalities were noted, grade 1 diastolic dysfunction, trace aortic regurgitation, no valvular lesions identified within the scope of this imaging study. IMPRESSION: 1. Paroxysmal atrial fibrillation, currently in normal sinus rhythm on chronic Coumadin anticoagulation. 2. Appropriate sinus tachycardia in the setting of hypoxemia. 3. Pneumonia with associated hypoxemia. RECOMMENDATIONS: It was my pleasure to see Ms. Cool in consultation today. The patient was counseled given the fact that she has remained in sinus rhythm despite her sinus tachycardia and ongoing active pulmonary issues that no further testing or intervention is necessary at this time. I would prefer allow her to be tachycardic into the 1-teens given the fact that this is a physiologic response to her hypoxemia, so will continue her current dose of Cardizem. Her Coumadin will be continued on a daily basis to maintain an INR of 2-3. Thank you very much for allowing me to participate in the care of your patient.
[2017-01-01] MEDS: DAPTOmycin IV 400 MG in SYRINGE 0 ML IV SCH (12:13)
--- NOTE | 2017-01-01 13:49 | DIAGNOSTIC IMAGING REPORT ---
VIDEO SWALLOW HISTORY: Aspiration assess for silent aspiration, please schedule per order TECHNIQUE: Video fluoroscopic evaluation of swallowing was performed in the AP and lateral projections by the speech pathology staff. The patient is fed nectar-thick and thin liquid barium, a barium coated wafer, and barium pudding. FLUOROSCOPY TIME: 2.1 minutes. COMPARISON STUDY: None. FINDINGS: There is normal hyoid excursion and epiglottic deflection. No significant penetration or aspiration identified. Swallowing function is within normal limits. IMPRESSION: 1. No aspiration identified. 2. Please see the speech pathologist report for detailed findings and recommendations. The above report was generated using voice recognition software. It may contain grammatical, syntax or spelling errors. Electronically signed by: Trip Leone M.D. 01/01/2017 1:48 PM Dictated Date/Time: 01/01/2017 1:47 PM
--- NOTE | 2017-01-01 14:25 | Progress Note ---
Subjective Date of Service: Jan 01, 2017. Subjective pt oob to chair, resting, remain on O2, afebrile. repeat sputum culture pending , blood cultures negative, urine legionella antigen negative. remains on abx, tolerating well. Problem List Medical Problems: (1) Abnormal white blood cell count Status: Acute (2) Anemia Status: Acute (3) Dehydration Status: Acute (4) Effusion, left hip Status: Acute (5) Fall Status: Acute (6) Fall Status: Acute (7) Fracture of neck of left femur Status: Acute (8) Hypomagnesemia Status: Acute (9) Hyponatremia Status: Acute (10) Hyponatremia Status: Acute (11) Left hip pain Status: Acute (12) Lumbar contusion Status: Acute (13) Lumbar contusion Status: Acute (14) Pelvic fracture Status: Acute (15) Pelvic fracture Status: Acute (16) PNA (pneumonia) Status: Acute (17) Sepsis Status: Acute (18) Septic arthritis Status: Acute (19) SOB (shortness of breath) Status: Acute (20) Tachycardia Status: Acute (21) UTI (urinary tract infection) Status: Acute Objective Vital Signs Date Time Temp Pulse Resp B/P (MAP) Pulse Ox O2 Delivery O2 Flow Rate FiO2 01/01/17 11:48 99 15 90 Nasal Cannula 4.0 01/01/17 11:29 37.5 107 136/80 (98) 95 4.0 01/01/17 11:19 100 95 01/01/17 08:00 Nasal Cannula 4.0 01/01/17 07:57 93 Nasal Cannula 4.0 01/01/17 07:55 93 Nasal Cannula 4.0 01/01/17 07:52 37.1 112 15 125/74 (91) 93 Nasal Cannula 4.0 01/01/17 07:23 103 22 91 Nasal Cannula 4.0 01/01/17 05:00 36.7 113 18 116/63 (80) 92 Nasal Cannula 4.0 01/01/17 04:00 Nasal Cannula 4.0 01/01/17 02:56 37.2 114 17 125/66 (85) 91 Humidified Oxygen 4.0 01/01/17 00:00 Nasal Cannula 4.0 12/31/16 23:40 36.9 108 17 133/78 (96) 90 Humidified Oxygen 4.0 12/31/16 21:04 36.7 113 18 136/75 (95) 95 Nasal Cannula 4.0 12/31/16 20:08 92 Nasal Cannula 4.0 12/31/16 19:15 104 22 93 Nasal Cannula 4.0 12/31/16 16:02 92 Nasal Cannula 4.0 12/31/16 14:57 36.7 92 18 125/73 (90) 92 Nasal Cannula 4.0 Physical Exam General Appearance: WD/WN Neck: supple Respiratory/Chest: normal breath sounds, no respiratory distress Cardiovascular: no edema Skin: normal color, no rash Laboratory Results Item Value Date Time Gram Stain - Final Resulted 12/31/16 2130 Sputum Expectorated Sputum Blood Culture - Preliminary Resulted 12/30/16 0534 Blood NO GROWTH TO DATE. Blood Culture - Preliminary Resulted 12/30/16 0421 Blood NO GROWTH TO DATE. Gram Stain - Final Complete 12/29/16 0452 Sputum Expectorated Sputum MRSA DNA Surveillance Screen - Final Complete 12/27/16 2310 Nasal Specimen Negative for MRSA by DNA Probe Blood Culture - Preliminary Resulted 12/27/16 1852 Blood NO GROWTH TO DATE. Blood Culture - Preliminary Resulted 12/27/16 1830 Blood NO GROWTH TO DATE. Last 24 Hours Test 12/31/16 14:34 01/01/17 06:33 Erythrocyte Sedimentation Rate 32 mm/hr C-Reactive Protein 22.00 mg/dl Pro-B-Type Natriuretic Peptide 622 pg/ml Rheumatoid Factor 12.6 U/mL Prothrombin Time 25.3 SECONDS Prothromb Time International Ratio 2.3 Assessment and Plan (1) PNA (pneumonia) Assessment & Plan: follow repeat sputum culture, continue abx. all cultures negative to date (2) Septic arthritis
[2017-01-01] MEDS: WARFARIN SOD 4 MG TAB PO SCH (16:16)
[2017-01-01] MEDS: LEVOFLOXACIN / D5W 750 MG in PREMIXED IN D5W 150 ML IV SCH (18:25)
--- NOTE | 2017-01-01 18:41 | Pulmonology Progress Note ---
Pulmonary Progress Note Date of Service Jan 01, 2017. Attending Dr. Talbert Subjective Patient seen and examined. She is feeling better from a respiratory point of view. She states is less short of breath and having less coughing. She is out of bed to chair. She is complaining of left hip pain and just received pain medications. Objective Vital signs reviewed. MAXIMUM TEMPERATURE 37.5, blood pressure 116/63-136/80, pulse 99-114, respiratory rate 16-22, pulse oximetry 90-97% on 4 L nasal cannula. Gen.: Awake, alert, oriented 3. Out of bed to chair. CVS: S1 and S2 irregularly irregular. Lungs: Good air entry bilaterally, no crackles or wheezes. Speaking in full sentences without respiratory distress. Abdomen: Soft, nontender, nondistended, bowel sounds positive Extremities: Left lower extremity greater than right lower extremity 3+ pitting edema, no clubbing, no cyanosis. Labs reviewed. IgG 1880, IgA 288, IgM 186 Urine Legionella not detected Mycoplasma pneumonia IgM pending Sputum culture from 12/29/2016 shows heavy normal diego. Blood cultures from 12/27/2016 and 12/30/2016 showing no growth to date. Imaging reviewed and reviewed by me. Medications reviewed. Assessment & Plan Hypoxemia. Right upper lobe pneumonia . Eosinophilia. Anemia of chronic disease. Hypoalbuminemia. Right Hiatal hernia. MSSA left hip. Atrial fibrillation. Today she is feeling better. She is breathing much better. Speech and swallow negative for aspiration. TTE shows diastolic dysfunction. 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 She is on anticoagulation for atrial fibrillation. IgE, Aspergillus antibody, Fungitell are still pending. Urine Legionella is negative. Mycoplasma IgM still pending. ALETA and ANCA screens were negative in September. Continue with treatment for pneumonia with Levaquin and daptomycin for right hip , per ID recommendations. Continue with oxygen supplementation to maintain SaO2 above 92%. Repeat CBC with differential to monitor for eosinophils Continue to optimize blood pressure and heart rate. She'll benefit from full PFTs as an outpatient. Continue with flutter valve. She also has a right Morgagni hernia, which should be reevaluated when she is medically optimized. Continue the PPI. Replete electrolytes per primary team. Continue with Coumadin for anticoagulation. per primary team. Data Medications: Current Inpatient Medications Medications (Trade) Dose Ordered Sig/Viviane Route Start Time Stop Time Status Last Admin Dose Admin Al Hydrox/Mg Hydrox/Simethicone (Maalox Max Susp) 15 ml Q4H PRN PO 12/27/16 21:45 01/26/17 21:44 Magnesium Hydroxide (Milk Of Magnesia Susp) 30 ml Q12H PRN PO 12/27/16 21:45 01/26/17 21:44 Ondansetron HCl (Zofran Inj) 4 mg Q6H PRN IV 12/27/16 21:45 01/26/17 21:44 12/31/16 08:22 4 MG Nitroglycerin (Nitrostat Tab) 0.4 mg UD PRN SL 12/27/16 21:45 01/26/17 21:44 Polyethylene (Miralax Powder Packet) 17 gm DAILY PRN PO 12/27/16 21:45 01/26/17 21:44 12/30/16 13:52 17 GM Acetaminophen (Tylenol Tab) 500 mg Q4 PRN PO 12/27/16 21:45 01/26/17 21:44 Bisacodyl (Dulcolax Tab) 5 mg UD PRN PO 12/27/16 21:45 01/26/17 21:44 Bisacodyl (Dulcolax Supp) 10 mg DAILY PRN OH 12/27/16 21:45 01/26/17 21:44 Betamethasone/ Clotrimazole (Lotrisone Crm) 1 appln BID EXT 12/28/16 09:00 01/27/17 08:59 01/01/17 09:08 1 APPLN Docusate Sodium (coLACE CAP) 100 mg BID PO 12/28/16 09:00 01/27/17 08:59 01/01/17 09:07 100 MG Famotidine (Pepcid Tab) 20 mg QAM PO 12/28/16 09:00 01/27/17 08:59 01/01/17 09:07 20 MG Gabapentin (Neurontin Cap) 300 mg HS PO 12/28/16 21:00 01/27/17 20:59 12/31/16 20:49 300 MG Hydromorphone HCl (Dilaudid Tab) 4 mg Q4 PRN PO 12/27/16 21:45 01/10/17 21:44 01/01/17 16:17 4 MG Hydroxyzine HCl (Vistaril Tab) 25 mg Q6H PRN PO 12/27/16 21:45 01/26/17 21:44 Latanoprost (Xalatan Oph Soln) 1 drops HS OP 12/28/16 21:00 01/27/17 20:59 12/31/16 20:50 1 DROPS Lorazepam (Ativan Tab) 0.5 mg TID PRN PO 12/27/16 21:45 01/26/17 21:44 12/28/16 20:49 0.5 MG Multivitamins/ Minerals (Multivitamin W/ Minerals Tab) 1 tab DAILY PO 12/28/16 09:00 01/27/17 08:59 01/01/17 09:09 1 TAB Nortriptyline HCl (Pamelor Cap) 25 mg HS PO 12/28/16 21:00 01/27/17 20:59 12/31/16 20:49 25 MG Ondansetron HCl (Zofran Odt) 4 mg Q6H PRN SL 12/27/16 21:45 01/26/17 21:44 12/28/16 08:25 4 MG Senna (Senokot Tab) 17.2 mg HS PO 12/28/16 21:00 01/27/17 20:59 12/31/16 20:48 17.2 MG Sodium Biphosphate/ Sodium Phosphate (Fleet Enema) 30 ml DAILY PRN OH 12/27/16 21:45 01/26/17 21:44 Tramadol HCl (Ultram Tab) 50 mg Q6 PRN PO 12/27/16 21:45 01/26/17 21:44 01/01/17 09:15 50 MG Ferrous Sulfate (Feosol Tab) 325 mg BID PO 12/28/16 09:00 01/27/17 08:59 01/01/17 09:06 325 MG Levofloxacin 750 mg/Prmx 150 ml @ 100 mls/hr Q24H IV 12/28/16 19:00 01/02/17 20:29 12/31/16 20:46 100 MLS/HR Diltiazem HCl (Cardizem Cd Cap) 180 mg DAILY PO 12/28/16 09:00 01/27/17 08:59 01/01/17 09:07 180 MG Warfarin Sodium (Coumadin Tab) 2 mg Mo@1600 PO 12/31/16 16:00 01/30/17 15:59 12/31/16 17:18 2 MG Gabapentin (Neurontin Cap) 200 mg BID@0800,1400 PO 12/28/16 08:00 01/27/17 07:59 01/01/17 14:08 200 MG Warfarin Sodium (Coumadin Tab) 4 mg SuTuWeThFrSa@1600 PO 12/28/16 16:00 01/27/17 15:59 01/01/17 16:16 4 MG Levofloxacin (Consult) 1 ea UD PRN N/A 12/27/16 23:15 01/26/17 23:14 Heparin Sodium (Porcine) (Heparin 10 Unit/ ml 5 ml Flush) 5 ml PRN PRN FLUSH 12/28/16 00:15 01/27/17 00:14 01/01/17 12:14 5 ML Lidocaine (Lidoderm Patch 5%) 1 patch DAILY@0900 TD 12/28/16 09:00 01/27/17 08:59 01/01/17 09:08 1 PATCH Miscellaneous (Remove Lidoderm Patch) 1 ea DAILY@2100 N/A 12/28/16 21:00 01/27/17 20:59 12/31/16 20:47 1 EA Daptomycin 400 mg/ Syringe 8 ml @ 4 mls/min DAILY@1200 IV 12/28/16 12:00 01/05/17 12:01 01/01/17 12:13 4 MLS/MIN Magnesium Oxide (Mag-Ox Tab) 400 mg BID PO 12/28/16 09:00 01/27/17 08:59 01/01/17 09:06 400 MG Albuterol/ Ipratropium (Duoneb) 3 ml QIDR INH 12/30/16 16:00 01/29/17 15:59 01/01/17 16:36 3 ML I & O: 24-Hour Column 01/02/17 08:00 Intake Total 380 ml Output Total 200 ml Balance 180 ml Vital Signs: Date Time Temp Pulse Resp B/P (MAP) Pulse Ox O2 Delivery O2 Flow Rate FiO2 01/01/17 16:21 99 16 97 Nasal Cannula 4.0 01/01/17 16:00 Nasal Cannula 4.0 01/01/17 15:26 37.2 99 18 129/73 (91) 96 4.0 01/01/17 12:00 Nasal Cannula 4.0 01/01/17 11:48 99 15 90 Nasal Cannula 4.0 01/01/17 11:29 37.5 107 136/80 (98) 95 4.0 01/01/17 11:19 100 95 01/01/17 08:00 Nasal Cannula 4.0 01/01/17 07:57 93 Nasal Cannula 4.0 01/01/17 07:55 93 Nasal Cannula 4.0 01/01/17 07:52 37.1 112 15 125/74 (91) 93 Nasal Cannula 4.0 01/01/17 07:23 103 22 91 Nasal Cannula 4.0 01/01/17 05:00 36.7 113 18 116/63 (80) 92 Nasal Cannula 4.0 01/01/17 04:00 Nasal Cannula 4.0 01/01/17 02:56 37.2 114 17 125/66 (85) 91 Humidified Oxygen 4.0 01/01/17 00:00 Nasal Cannula 4.0 12/31/16 23:40 36.9 108 17 133/78 (96) 90 Humidified Oxygen 4.0 12/31/16 21:04 36.7 113 18 136/75 (95) 95 Nasal Cannula 4.0 12/31/16 20:08 92 Nasal Cannula 4.0 12/31/16 19:15 104 22 93 Nasal Cannula 4.0 Laboratory Results: Last 24 Hours Test 01/01/17 06:33 Prothrombin Time 25.3 SECONDS Prothromb Time International Ratio 2.3
--- NOTE | 2017-01-01 19:16 | Progress Note ---
Internal Med Progress Note Date of Service: Jan 01, 2017. Provider Documentation: SUBJECTIVE: sitting on the chair comfortably sob is better today denies chest pain afebrile no nausea OBJECTIVE: Vital Signs-as noted below Exam: General-alert and oriented. Not in distress ENT-normal hearing Neck-no neck masses Lungs- cta b/l no wheezing or crackles Heart-s1 and s2 heard regular rate and rhythm no murmurs Abdomen-soft bowel sounds present no tenderness present no distension Extremities-lower extremity edema present more on left lower extremity no erythema Neuro-alert and oriented moves extremities Lab data as noted below. ASSESSMENT & PLAN: This 71-year-old female presents with shortness of breath and found to have pneumonia. Pneumonia, community versus hospital acquired pneumonia. The patient has a history of MSSA in the blood cultures and wound cultures and she had two 6 weeks of antibiotics currently on daptomycin, supposed to get done on 2016. She received IV Levaquin in the ER which continued as 750 mg IV q24 hours . cx no growth so far improving to continue levaquin ID and Pulmonary on board and appreciate inputs. Left hip septic arthritis, initially finished 6 weeks of IV ceftriaxone and IV vancomycin and got reinfected and again status post I&D and currently on IV daptomycin, which she is supposed to get done by 01/04/2017. Plan for left hip surgery in [place] on 01/18 Antibiotics as per ID History of atrial fibrillation, on diltiazem 180 mg daily and Coumadin. INR 2.3 cardiology consulted-appreciate inputs. Ultrasound Lower extremity 12/31/16 Trace chronic appearing thrombus is questioned within the left common femoral vein. on Coumadin Chronic anemia with a hemoglobin baseline around 8-9. Hgb between 7 to 8 during this admission. maintain active type and screen will f/u labs Hypertension controlled on diltiazem 180 mg daily electrolyte deficiencies: replace. f/u labs. history of CKD but renal labs on this admission has been showing estimated GFR above 75 and generally stable renal function Deep venous thrombosis prophylaxis on Coumadin. DISPOSITION to be determined Vital Signs: Date Time Temp Pulse Resp B/P (MAP) Pulse Ox O2 Delivery O2 Flow Rate FiO2 01/01/17 16:21 99 16 97 Nasal Cannula 4.0 01/01/17 16:00 Nasal Cannula 4.0 01/01/17 15:26 37.2 99 18 129/73 (91) 96 4.0 01/01/17 12:00 Nasal Cannula 4.0 01/01/17 11:48 99 15 90 Nasal Cannula 4.0 01/01/17 11:29 37.5 107 136/80 (98) 95 4.0 01/01/17 11:19 100 95 01/01/17 08:00 Nasal Cannula 4.0 01/01/17 07:57 93 Nasal Cannula 4.0 01/01/17 07:55 93 Nasal Cannula 4.0 01/01/17 07:52 37.1 112 15 125/74 (91) 93 Nasal Cannula 4.0 01/01/17 07:23 103 22 91 Nasal Cannula 4.0 01/01/17 05:00 36.7 113 18 116/63 (80) 92 Nasal Cannula 4.0 01/01/17 04:00 Nasal Cannula 4.0 01/01/17 02:56 37.2 114 17 125/66 (85) 91 Humidified Oxygen 4.0 01/01/17 00:00 Nasal Cannula 4.0 12/31/16 23:40 36.9 108 17 133/78 (96) 90 Humidified Oxygen 4.0 12/31/16 21:04 36.7 113 18 136/75 (95) 95 Nasal Cannula 4.0 12/31/16 20:08 92 Nasal Cannula 4.0 12/31/16 19:15 104 22 93 Nasal Cannula 4.0 Lab Results: Results Past 24 Hours Test 01/01/17 06:33 Range/Units Prothrombin Time 25.3 9.0-12.0 SECONDS Prothromb Time International Ratio 2.3 0.9-1.1 Microbiology Results 12/31/16 Gram Stain - Final, Resulted 12/31/16 Sputum Culture, Resulted Pending
[2017-01-01] MEDS: LATANOPROST 0.005% OP SOLN 2.5 ML BTL OP SCH (22:13)
[2017-01-01] MEDS: NORTRIPTYLINE HCL 25 MG CAP PO SCH (22:15)
[2017-01-01] MEDS: GABAPENTIN 300 MG CAP PO SCH (22:16)
[2017-01-01] MEDS: SENNA 8.6 MG TAB PO SCH (22:17)
[2017-01-01] MEDS: POLYETHYLENE (MIRALAX) 17 GM PACK PO PRN (22:30)
[2017-01-02] VITALS (19 sets, daily range): BP systolic 106–147; BP diastolic 60–87; PULSE 75–107; TEMP 36.3–37.2; O2SAT 93–97
[2017-01-02] MEDS: HYDROmorphone HCL 2 MG TAB PO PRN ×3 (05:49→19:10)
[2017-01-02] MEDS: ALBUT/IPRATROP 3MG/0.5MG NEB 3 ML VIAL INH SCH ×4 (07:13→20:00)
[2017-01-02 07:15] LABS: INR 2.1 (0.9-1.1); PROTHROMBIN TIME (PATIENT) 22.9 SECONDS (9.0-12.0)
[2017-01-02 08:45] LABS: BUN/CREATININE RATIO 17.3 (10-20); CALCIUM 9.3 mg/dl (8.5-10.1); CREATININE 0.88 mg/dl (0.60-1.20); MAGNESIUM 1.6 mg/dl (1.8-2.4); POTASSIUM 3.9 mmol/L (3.5-5.1)
[2017-01-02 08:57] LABS: BASO % 0.2 %; BASO ABS # 0.03 K/uL (0-0.2); EOS % 11.6 %; HEMATOCRIT 24.8 % (37-47); IG% 0.4 %; LYMPH % 8.9 %; LYMPH ABS # 1.23 K/uL (1.2-3.4); MEAN CELL VOLUME 86.1 fL (80-100); MEAN CORPUSCULAR HEMOGLOBIN 26.4 pg (25-34); MEAN CORPUSCULAR HGB CONC 30.6 g/dl (32-36); MEAN PLATELET VOLUME 8.7 fL (7.4-10.4); NEUT % 71.9 %; PLATELET COUNT 428 K/uL (130-400); RED BLOOD COUNT 2.88 M/uL (4.2-5.4); WHITE BLOOD COUNT 13.85 K/uL (4.8-10.8)
[2017-01-02] MEDS: FAMOTIDINE 20 MG TAB PO SCH (09:00)
[2017-01-02] MEDS: DILTIAZEM HCL 180 MG CAPCR PO SCH (09:00)
[2017-01-02] MEDS: CLOTRIMAZOLE/BETAMETHASONE CR 15 GM TUBE EXT SCH ×2 (09:00→20:58)
[2017-01-02] MEDS: TRAMADOL HCL 50 MG TAB PO PRN ×3 (09:00→21:12)
[2017-01-02] MEDS: MAGNESIUM OXIDE 400 MG TAB PO SCH ×2 (09:00→21:03)
[2017-01-02] MEDS: GABAPENTIN 100 MG CAP PO SCH ×2 (09:00→14:29)
[2017-01-02] MEDS: DOCUSATE SODIUM 100 MG CAP PO SCH ×2 (09:01→21:02)
[2017-01-02] MEDS: FERROUS SULFATE 325 MG TAB PO SCH ×2 (09:01→21:04)
[2017-01-02] MEDS: LIDODERM (LIDOCAINE) PATCH 5% TD SCH (09:01)
[2017-01-02] MEDS: CEROVITE ADV FORMULA TAB PO SCH (09:01)
[2017-01-02] MEDS: ONDANSETRON INJ 2 MG/ML 2 ML VIAL IV PRN (09:08)
[2017-01-02 09:24] LABS: COMPLETE YES; VACUOLIZATION 1+
--- NOTE | 2017-01-02 10:01 | Progress Note ---
Subjective Date of Service: Jan 02, 2017. Subjective Pt evaluation today including: conversation w/ patient, physical exam, chart review, lab review pt seen in followup, remains on abx. breathing improved, O2 now 2L, no sob, cp, intermittent dry cough. sputum culture pending, all blood cultures negative. tolerating abx. no n/v/d/abd pain. no f/c, but tmax 38 overnight, asymptomatic. All remaining ros reviewed and are negative. Problem List Medical Problems: (1) Abnormal white blood cell count Status: Acute (2) Anemia Status: Acute (3) Dehydration Status: Acute (4) Effusion, left hip Status: Acute (5) Fall Status: Acute (6) Fall Status: Acute (7) Fracture of neck of left femur Status: Acute (8) Hypomagnesemia Status: Acute (9) Hyponatremia Status: Acute (10) Hyponatremia Status: Acute (11) Left hip pain Status: Acute (12) Lumbar contusion Status: Acute (13) Lumbar contusion Status: Acute (14) Pelvic fracture Status: Acute (15) Pelvic fracture Status: Acute (16) PNA (pneumonia) Status: Acute (17) Sepsis Status: Acute (18) Septic arthritis Status: Acute (19) SOB (shortness of breath) Status: Acute (20) Tachycardia Status: Acute (21) UTI (urinary tract infection) Status: Acute Objective Vital Signs Date Time Temp Pulse Resp B/P (MAP) Pulse Ox O2 Delivery O2 Flow Rate FiO2 01/02/17 07:32 36.6 97 18 121/62 (81) 93 Nasal Cannula 4.0 01/02/17 07:15 97 16 93 Nasal Cannula 4.0 01/02/17 03:30 37.2 98 16 120/70 (87) 96 Nasal Cannula 4.0 Humidified Oxygen 01/02/17 00:05 Nasal Cannula 4.0 01/01/17 23:41 37.1 01/01/17 23:37 38.0 106 16 139/70 (93) 97 Nasal Cannula 4.0 Humidified Oxygen 01/01/17 20:05 Nasal Cannula 4.0 01/01/17 20:00 36.8 111 20 116/54 (74) 97 Nasal Cannula 2.0 01/01/17 19:25 98 16 93 Nasal Cannula 2.0 01/01/17 16:21 99 16 97 Nasal Cannula 4.0 01/01/17 16:00 Nasal Cannula 4.0 01/01/17 15:26 37.2 99 18 129/73 (91) 96 4.0 01/01/17 12:00 Nasal Cannula 4.0 01/01/17 11:48 99 15 90 Nasal Cannula 4.0 01/01/17 11:29 37.5 107 136/80 (98) 95 4.0 01/01/17 11:19 100 95 Physical Exam General Appearance: WD/WN, no apparent distress Eyes: normal inspection, EOMI Neck: supple Respiratory/Chest: lungs clear, normal breath sounds Cardiovascular: regular rate, rhythm, no edema Abdomen: non tender, soft Extremities: non-tender, no pedal edema Neurologic/Psychiatric: alert, oriented x 3 Skin: normal color, no rash Laboratory Results Item Value Date Time Gram Stain - Final Resulted 12/31/16 2130 Sputum Expectorated Sputum Blood Culture - Preliminary Resulted 12/30/16 0534 Blood NO GROWTH TO DATE. Blood Culture - Preliminary Resulted 12/30/16 0421 Blood NO GROWTH TO DATE. Gram Stain - Final Complete 12/29/16 0452 Sputum Expectorated Sputum Blood Culture - Final Complete 12/27/16 1852 Blood NO GROWTH Blood Culture - Final Complete 12/27/16 1830 Blood NO GROWTH Last 24 Hours Test 01/02/17 06:49 01/02/17 07:49 Prothrombin Time 22.9 SECONDS Prothromb Time International Ratio 2.1 White Blood Count 13.85 K/uL Red Blood Count 2.88 M/uL Hemoglobin 7.6 g/dL Hematocrit 24.8 % Mean Corpuscular Volume 86.1 fL Mean Corpuscular Hemoglobin 26.4 pg Mean Corpuscular Hemoglobin Concent 30.6 g/dl Platelet Count 428 K/uL Mean Platelet Volume 8.7 fL Neutrophils (%) (Auto) 71.9 % Lymphocytes (%) (Auto) 8.9 % Monocytes (%) (Auto) 7.0 % Eosinophils (%) (Auto) 11.6 % Basophils (%) (Auto) 0.2 % Neutrophils # (Auto) 9.95 K/uL Lymphocytes # (Auto) 1.23 K/uL Monocytes # (Auto) 0.97 K/uL Eosinophils # (Auto) 1.61 K/uL Basophils # (Auto) 0.03 K/uL RDW Standard Deviation 50.7 fL RDW Coefficient of Variation 15.8 % Immature Granulocyte % (Auto) 0.4 % Immature Granulocyte # (Auto) 0.06 K/uL Toxic Vacuolation 1+ Sodium Level 131 mmol/L Potassium Level 3.9 mmol/L Chloride Level 94 mmol/L Carbon Dioxide Level 29 mmol/L Anion Gap 8.0 mmol/L Blood Urea Nitrogen 15 mg/dl Creatinine 0.88 mg/dl Est Creatinine Clear Calc Drug Dose 56.9 ml/min Estimated GFR () 77.2 Estimated GFR (Non- 66.6 BUN/Creatinine Ratio 17.3 Random Glucose 102 mg/dl Calcium Level 9.3 mg/dl Magnesium Level 1.6 mg/dl Assessment and Plan (1) PNA (pneumonia) Assessment & Plan: follow repeat sputum culture, continue abx. all cultures negative to date (2) Septic arthritis
--- NOTE | 2017-01-02 10:06 | Cardiology Follow-Up ---
Subjective Subjective Date of Service: Jan 02, 2017. Pt evaluation today including: conversation w/ patient, physical exam, chart review, lab review, review of studies, review of inpatient medication list Additional Details: Pt seen and examined, states that her breathing is marginally improved. Continues to deny cp, palpitations, lightheadedness or dizziness. Tele reviewed: sinus/sinus tach 90's-110's. Problem List Medical Problems: (1) Abnormal white blood cell count Status: Acute (2) Anemia Status: Acute (3) Dehydration Status: Acute (4) Effusion, left hip Status: Acute (5) Fall Status: Acute (6) Fall Status: Acute (7) Fracture of neck of left femur Status: Acute (8) Hypomagnesemia Status: Acute (9) Hyponatremia Status: Acute (10) Hyponatremia Status: Acute (11) Left hip pain Status: Acute (12) Lumbar contusion Status: Acute (13) Lumbar contusion Status: Acute (14) Pelvic fracture Status: Acute (15) Pelvic fracture Status: Acute (16) PNA (pneumonia) Status: Acute (17) Sepsis Status: Acute (18) Septic arthritis Status: Acute (19) SOB (shortness of breath) Status: Acute (20) Tachycardia Status: Acute (21) UTI (urinary tract infection) Status: Acute Review of Systems Constitutional: + weakness, + fatigue Respiratory: + cough, + sputum, + shortness of breath, + dyspnea on exertion, No see HPI, No wheezing, No dyspnea at rest, No hemoptysis, No problem reported Cardiac: + edema, No see HPI, No chest pain, No orthopnea, No PND, No claudication, No palpitations, No problem reported Musculoskeletal: + joint pain Neurologic: + weakness, + balance problems Endo: + fatigue Objective Vital Signs Last Vital Signs Documentation Date Time Temp Pulse Resp B/P (MAP) Pulse Ox O2 Delivery O2 Flow Rate FiO2 01/02/17 07:32 36.6 97 18 121/62 (81) 93 Nasal Cannula 4.0 Physical Exam: General Appearance: WD/WN, no apparent distress, + thin Eyes: bilateral eyes normal inspection, bilateral eyes PERRL, bilateral eyes EOMI ENT: normal ENT inspection, hearing grossly normal, pharynx normal Neck: supple, no adenopathy, thyroid normal, no JVD, no carotid bruits, trachea midline Respiratory/Chest: chest non-tender, no respiratory distress, + decreased breath sounds, + accessory muscle use, + rhonchi Cardiovascular: regular rate, rhythm, no edema, no JVD, no murmur, + tachycardia, + gallop/S4 Abdomen: normal bowel sounds, non tender, soft, no organomegaly Extremities: normal range of motion, non-tender, no calf tenderness, + pedal edema (+2 b/l LE pitting edema) Neurologic/Psychiatric: rn hematology II-XII nml as tested, no motor/sensory deficits, alert, normal mood/affect, oriented x 3 Skin: normal color, warm/dry, no rash Assessment and Plan 1. PAF has remained in sinus appropriate sinus tach given pulmonary status will hold off on further rate control, cont current dose of diltiazem cont coumadin with goal INR of 2-3 2. anemia patient states that it has been a chronic issue for a few months now reportedly GI work up negative, has not been seen by hematology recommend 1 unit PRBC would consider hematology eval as well 3. Hypoxia still requiring O2
[2017-01-02] MEDS ORDERED: NURSING VERBAL MED ORDER ONE (11:45)
[2017-01-02] MEDS ORDERED: ACETAMINOPHEN 325 MG TAB PO SCH (12:00)
[2017-01-02] MEDS: DAPTOmycin IV 400 MG in SYRINGE 0 ML IV SCH (12:14)
[2017-01-02] MEDS ORDERED: FLUCONAZOLE 50 MG TAB PO ONE (12:45)
[2017-01-02] MEDS ORDERED: FUROSEMIDE INJ 20 MG in SYRINGE 0 ML IV SCH (14:00)
[2017-01-02] MEDS: BISACODYL 5 MG TABEC PO PRN (15:39)
--- NOTE | 2017-01-02 15:57 | Pulmonology Progress Note ---
Pulmonary Progress Note Date of Service Jan 02, 2017. Attending Dr. Talbert Subjective Patient continues to improve. She states that her breathing is easier today. Note that the patient's eosinophil count continues to slowly increase. Discussed this with both Dr. Talbert and Dr. Fletcher. Very slight concern for eosinophilic pneumonia from Daptomycin use, but patient is improving and has not been treated with steroids. Patient did video swallow completed yesterday which showed no aspiration. Medications reviewed: First my 20 mg daily, DuoNeb Levaquin 750 mg daily, daptomycin Labs reviewed: WBC 13.85 Hgb 7.6 Plt count 423 Eosinophil # 1.61 Objective Vital signs reviewed: Afebrile heart rate 92-107 respiratory rate 16 to 20, blood pressure 112/67, SpO2 93-95% currently on 4 liters nasal cannula. General: Patient is awake, alert, cooperative, and in no acute distress. Well developed. Well-nourished. Skin: Normal appearance, texture, and temperature. No apparent rash or ecchymoses. HEENT: Normocephalic and atraumatic. Eyes are anicteric and non-erythematous. EOMI c PERRLA. Hearing intact and without difficulty. Nose appears normal and without drainage. Trachea midline. Thyroid appears normal, and neck is supple. Lungs: Overall clear to auscultation. Mildly decreased breath sounds. No accessory muscle use. Chest is nontender to palpation Heart: Regular rate and rhythm. Normal S1 and S2 heard. No S3/S4, rubs, murmurs , or gallops appreciated. Abdomen: Active bowel sounds heard throughout all 4 quadrants. Abdomen is soft and nontender with no organomegally or masses to palpation. Extremities: Freely moving extremities during exam. Neuro: Alert and oriented X3. CN II-XII grossly intact. Sensation and motor function grossly intact. Psych: Mood and affect are normal. Assessment & Plan Hypoxemia. Right upper lobe pneumonia . Eosinophilia. Anemia of chronic disease. Hypoalbuminemia. Right Hiatal hernia. MSSA left hip. Atrial fibrillation. Patient continues to feel better. Video swallow showed no evidence of aspiration. She is on anticoagulation for atrial fibrillation. IgE, Aspergillus antibody, Fungitell are still pending. Urine Legionella is negative. Mycoplasma IgM negative. Continue with treatment for pneumonia with Levaquin and daptomycin for right hip , per ID recommendations. Continue with oxygen supplementation to maintain SaO2 above 92%. Recommend titrating O2 as tolerated. Differential for eosinophilia morning with Dr. Talbert and Dr. Fletcher. Feel that likely is not an easy since pneumonia secondary to daptomycin patient is ultimately getting better and treated steroids point. If she would to worsen consider addition steroids to her current regimen in a short tapering manor. Continue to optimize blood pressure and heart rate. She will need full PFTs as an outpatient. Continue with flutter valve. Continue the PPI. Replete electrolytes per primary team. Continue with Coumadin for anticoagulation. per primary team. Data Medications: Current Inpatient Medications Medications (Trade) Dose Ordered Sig/Viviane Route Start Time Stop Time Status Last Admin Dose Admin Al Hydrox/Mg Hydrox/Simethicone (Maalox Max Susp) 15 ml Q4H PRN PO 12/27/16 21:45 01/26/17 21:44 Magnesium Hydroxide (Milk Of Magnesia Susp) 30 ml Q12H PRN PO 12/27/16 21:45 01/26/17 21:44 Ondansetron HCl (Zofran Inj) 4 mg Q6H PRN IV 12/27/16 21:45 01/26/17 21:44 01/02/17 09:08 4 MG Nitroglycerin (Nitrostat Tab) 0.4 mg UD PRN SL 12/27/16 21:45 01/26/17 21:44 Polyethylene (Miralax Powder Packet) 17 gm DAILY PRN PO 12/27/16 21:45 01/26/17 21:44 01/01/17 22:30 17 GM Acetaminophen (Tylenol Tab) 500 mg Q4 PRN PO 12/27/16 21:45 01/26/17 21:44 01/01/17 23:59 500 MG Bisacodyl (Dulcolax Tab) 5 mg UD PRN PO 12/27/16 21:45 01/26/17 21:44 01/02/17 15:39 5 MG Bisacodyl (Dulcolax Supp) 10 mg DAILY PRN WA 12/27/16 21:45 01/26/17 21:44 Betamethasone/ Clotrimazole (Lotrisone Crm) 1 appln BID EXT 12/28/16 09:00 01/27/17 08:59 01/01/17 22:14 1 APPLN Docusate Sodium (coLACE CAP) 100 mg BID PO 12/28/16 09:00 01/27/17 08:59 01/02/17 09:01 100 MG Famotidine (Pepcid Tab) 20 mg QAM PO 12/28/16 09:00 01/27/17 08:59 01/02/17 09:00 20 MG Gabapentin (Neurontin Cap) 300 mg HS PO 12/28/16 21:00 01/27/17 20:59 01/01/17 22:16 300 MG Hydromorphone HCl (Dilaudid Tab) 4 mg Q4 PRN PO 12/27/16 21:45 01/10/17 21:44 01/02/17 12:14 4 MG Hydroxyzine HCl (Vistaril Tab) 25 mg Q6H PRN PO 12/27/16 21:45 01/26/17 21:44 Latanoprost (Xalatan Oph Soln) 1 drops HS OP 12/28/16 21:00 01/27/17 20:59 01/01/17 22:13 1 DROPS Lorazepam (Ativan Tab) 0.5 mg TID PRN PO 12/27/16 21:45 01/26/17 21:44 12/28/16 20:49 0.5 MG Multivitamins/ Minerals (Multivitamin W/ Minerals Tab) 1 tab DAILY PO 12/28/16 09:00 01/27/17 08:59 01/02/17 09:01 1 TAB Nortriptyline HCl (Pamelor Cap) 25 mg HS PO 12/28/16 21:00 01/27/17 20:59 01/01/17 22:15 25 MG Ondansetron HCl (Zofran Odt) 4 mg Q6H PRN SL 12/27/16 21:45 01/26/17 21:44 12/28/16 08:25 4 MG Senna (Senokot Tab) 17.2 mg HS PO 12/28/16 21:00 01/27/17 20:59 01/01/17 22:17 17.2 MG Sodium Biphosphate/ Sodium Phosphate (Fleet Enema) 30 ml DAILY PRN [place] 12/27/16 21:45 01/26/17 21:44 Tramadol HCl (Ultram Tab) 50 mg Q6 PRN PO 12/27/16 21:45 01/26/17 21:44 01/02/17 15:39 50 MG Ferrous Sulfate (Feosol Tab) 325 mg BID PO 12/28/16 09:00 01/27/17 08:59 01/02/17 09:01 325 MG Levofloxacin 750 mg/Prmx 150 ml @ 100 mls/hr Q24H IV 12/28/16 19:00 01/02/17 20:29 01/01/17 18:25 100 MLS/HR Diltiazem HCl (Cardizem Cd Cap) 180 mg DAILY PO 12/28/16 09:00 01/27/17 08:59 01/02/17 09:00 180 MG Warfarin Sodium (Coumadin Tab) 2 mg Mo@1600 PO 12/31/16 16:00 01/30/17 15:59 12/31/16 17:18 2 MG Gabapentin (Neurontin Cap) 200 mg BID@0800,1400 PO 12/28/16 08:00 01/27/17 07:59 01/02/17 14:29 200 MG Warfarin Sodium (Coumadin Tab) 4 mg SuTuWeThFrSa@1600 PO 12/28/16 16:00 01/27/17 15:59 01/01/17 16:16 4 MG Levofloxacin (Consult) 1 ea UD PRN N/A 12/27/16 23:15 01/26/17 23:14 Heparin Sodium (Porcine) (Heparin 10 Unit/ ml 5 ml Flush) 5 ml PRN PRN FLUSH 12/28/16 00:15 01/27/17 00:14 01/01/17 12:14 5 ML Lidocaine (Lidoderm Patch 5%) 1 patch DAILY@0900 TD 12/28/16 09:00 01/27/17 08:59 01/02/17 09:01 1 PATCH Miscellaneous (Remove Lidoderm Patch) 1 ea DAILY@2100 N/A 12/28/16 21:00 01/27/17 20:59 01/01/17 21:00 1 EA Daptomycin 400 mg/ Syringe 8 ml @ 4 mls/min DAILY@1200 IV 12/28/16 12:00 01/05/17 12:01 01/02/17 12:14 4 MLS/MIN Magnesium Oxide (Mag-Ox Tab) 400 mg BID PO 12/28/16 09:00 01/27/17 08:59 01/02/17 09:00 400 MG Albuterol/ Ipratropium (Duoneb) 3 ml QIDR INH 12/30/16 16:00 01/29/17 15:59 01/02/17 14:17 3 ML Acetaminophen (Tylenol Tab) 650 mg 1200 PO 01/02/17 12:00 01/02/17 16:00 01/02/17 12:09 650 MG Furosemide 20 mg/ Syringe 2 ml @ 4 mls/min 1400 IV 01/02/17 14:00 01/02/17 18:00 I & O: 24-Hour Column 01/03/17 08:00 Intake Total 420 ml Output Total 200 ml Balance 220 ml Vital Signs: Date Time Temp Pulse Resp B/P (MAP) Pulse Ox O2 Delivery O2 Flow Rate FiO2 01/02/17 14:18 94 16 95 Nasal Cannula 4.0 01/02/17 13:40 36.3 92 16 112/67 94 3.0 01/02/17 12:00 Nasal Cannula 3.0 01/02/17 11:31 36.5 107 20 125/71 (89) 93 Nasal Cannula 4.0 01/02/17 11:26 99 16 94 Nasal Cannula 4.0 01/02/17 08:00 Nasal Cannula 3.0 01/02/17 07:32 36.6 97 18 121/62 (81) 93 Nasal Cannula 4.0 01/02/17 07:15 97 16 93 Nasal Cannula 4.0 01/02/17 03:30 37.2 98 16 120/70 (87) 96 Nasal Cannula 4.0 Humidified Oxygen 01/02/17 00:05 Nasal Cannula 4.0 01/01/17 23:41 37.1 01/01/17 23:37 38.0 106 16 139/70 (93) 97 Nasal Cannula 4.0 Humidified Oxygen 01/01/17 20:05 Nasal Cannula 4.0 01/01/17 20:00 36.8 111 20 116/54 (74) 97 Nasal Cannula 2.0 01/01/17 19:25 98 16 93 Nasal Cannula 2.0 01/01/17 16:21 99 16 97 Nasal Cannula 4.0 01/01/17 16:00 Nasal Cannula 4.0 Laboratory Results: Last 24 Hours Test 01/02/17 06:49 01/02/17 07:49 Prothrombin Time 22.9 SECONDS Prothromb Time International Ratio 2.1 White Blood Count 13.85 K/uL Red Blood Count 2.88 M/uL Hemoglobin 7.6 g/dL Hematocrit 24.8 % Mean Corpuscular Volume 86.1 fL Mean Corpuscular Hemoglobin 26.4 pg Mean Corpuscular Hemoglobin Concent 30.6 g/dl Platelet Count 428 K/uL Mean Platelet Volume 8.7 fL Neutrophils (%) (Auto) 71.9 % Lymphocytes (%) (Auto) 8.9 % Monocytes (%) (Auto) 7.0 % Eosinophils (%) (Auto) 11.6 % Basophils (%) (Auto) 0.2 % Neutrophils # (Auto) 9.95 K/uL Lymphocytes # (Auto) 1.23 K/uL Monocytes # (Auto) 0.97 K/uL Eosinophils # (Auto) 1.61 K/uL Basophils # (Auto) 0.03 K/uL RDW Standard Deviation 50.7 fL RDW Coefficient of Variation 15.8 % Immature Granulocyte % (Auto) 0.4 % Immature Granulocyte # (Auto) 0.06 K/uL Toxic Vacuolation 1+ Sodium Level 131 mmol/L Potassium Level 3.9 mmol/L Chloride Level 94 mmol/L Carbon Dioxide Level 29 mmol/L Anion Gap 8.0 mmol/L Blood Urea Nitrogen 15 mg/dl Creatinine 0.88 mg/dl Est Creatinine Clear Calc Drug Dose 56.9 ml/min Estimated GFR () 77.2 Estimated GFR (Non- 66.6 BUN/Creatinine Ratio 17.3 Random Glucose 102 mg/dl Calcium Level 9.3 mg/dl Magnesium Level 1.6 mg/dl
[2017-01-02] MEDS: WARFARIN SOD 4 MG TAB PO SCH (16:08)
--- NOTE | 2017-01-02 18:19 | Progress Note ---
Internal Med Progress Note Date of Service: Jan 02, 2017. Provider Documentation: SUBJECTIVE: sitting on the chair comfortably has chronic right shoulder pain no chest pain or sob no other complaints OBJECTIVE: Vital Signs-as noted below Exam: General-alert and oriented. Not in distress ENT-normal hearing Neck-no neck masses Lungs- cta b/l no wheezing or crackles Heart-s1 and s2 heard regular rate and rhythm no murmurs Abdomen-soft bowel sounds present no tenderness present no distension Extremities-lower extremity edema present more on left lower extremity no erythema Neuro-alert and oriented moves extremities Lab data as noted below. ASSESSMENT & PLAN: This 71-year-old female presents with shortness of breath and found to have pneumonia. Pneumonia, community versus hospital acquired pneumonia. The patient has a history of MSSA in the blood cultures and wound cultures and she had two 6 weeks of antibiotics currently on daptomycin, supposed to get done on 2016. She received IV Levaquin in the ER which continued as 750 mg IV q24 hours . cx no growth so far improving to continue Levaquin ID and Pulmonary on board and appreciate inputs. stable Left hip septic arthritis, initially finished 6 weeks of IV ceftriaxone and IV vancomycin and got reinfected and again status post I&D and currently on IV daptomycin, which she is supposed to get done by 01/04/2017. Plan for left hip surgery in [place] on 01/18 Antibiotics as per ID stable History of atrial fibrillation, on diltiazem 180 mg daily and Coumadin. INR 2.1 today cardiology consulted-appreciate inputs. Ultrasound Lower extremity 12/31/16 Trace chronic appearing thrombus is questioned within the left common femoral vein. on Coumadin Chronic anemia with a hemoglobin baseline around 8-9. Hgb between 7 to 8 during this admission. will transfuse two units prbc consult heme/onco for chronic anemia Hypertension controlled on diltiazem 180 mg daily electrolyte deficiencies: replace. f/u labs. history of CKD but renal labs on this admission has been showing estimated GFR above 75 and generally stable renal function Deep venous thrombosis prophylaxis on Coumadin. DISPOSITION pt/ot possible d/c in 1-2 days if stable Vital Signs: Date Time Temp Pulse Resp B/P (MAP) Pulse Ox O2 Delivery O2 Flow Rate FiO2 01/02/17 16:24 36.6 87 18 117/64 96 01/02/17 16:00 Nasal Cannula 3.0 01/02/17 16:00 37.2 88 16 113/67 94 3.0 01/02/17 14:50 36.9 87 16 114/60 94 3.0 01/02/17 14:20 36.7 75 16 119/63 95 3.0 01/02/17 14:18 94 16 95 Nasal Cannula 4.0 01/02/17 14:05 36.9 88 16 106/60 93 3.0 01/02/17 13:40 36.3 92 16 112/67 94 3.0 01/02/17 12:00 Nasal Cannula 3.0 01/02/17 11:31 36.5 107 20 125/71 (89) 93 Nasal Cannula 4.0 01/02/17 11:26 99 16 94 Nasal Cannula 4.0 01/02/17 08:00 Nasal Cannula 3.0 01/02/17 07:32 36.6 97 18 121/62 (81) 93 Nasal Cannula 4.0 01/02/17 07:15 97 16 93 Nasal Cannula 4.0 01/02/17 03:30 37.2 98 16 120/70 (87) 96 Nasal Cannula 4.0 Humidified Oxygen 01/02/17 00:05 Nasal Cannula 4.0 01/01/17 23:41 37.1 01/01/17 23:37 38.0 106 16 139/70 (93) 97 Nasal Cannula 4.0 Humidified Oxygen 01/01/17 20:05 Nasal Cannula 4.0 01/01/17 20:00 36.8 111 20 116/54 (74) 97 Nasal Cannula 2.0 01/01/17 19:25 98 16 93 Nasal Cannula 2.0 Lab Results: Results Past 24 Hours Test 01/02/17 06:49 01/02/17 07:49 Range/Units Prothrombin Time 22.9 9.0-12.0 SECONDS Prothromb Time International Ratio 2.1 0.9-1.1 White Blood Count 13.85 4.8-10.8 K/uL Red Blood Count 2.88 4.2-5.4 M/uL Hemoglobin 7.6 12.0-16.0 g/dL Hematocrit 24.8 37-47 % Mean Corpuscular Volume 86.1 80-100 fL Mean Corpuscular Hemoglobin 26.4 25-34 pg Mean Corpuscular Hemoglobin Concent 30.6 32-36 g/dl Platelet Count 428 130-400 K/uL Mean Platelet Volume 8.7 7.4-10.4 fL Neutrophils (%) (Auto) 71.9 % Lymphocytes (%) (Auto) 8.9 % Monocytes (%) (Auto) 7.0 % Eosinophils (%) (Auto) 11.6 % Basophils (%) (Auto) 0.2 % Neutrophils # (Auto) 9.95 1.4-6.5 K/uL Lymphocytes # (Auto) 1.23 1.2-3.4 K/uL Monocytes # (Auto) 0.97 0.11-0.59 K/uL Eosinophils # (Auto) 1.61 0-0.5 K/uL Basophils # (Auto) 0.03 0-0.2 K/uL RDW Standard Deviation 50.7 36.4-46.3 fL RDW Coefficient of Variation 15.8 11.5-14.5 % Immature Granulocyte % (Auto) 0.4 % Immature Granulocyte # (Auto) 0.06 0.00-0.02 K/uL Toxic Vacuolation 1+ Sodium Level 131 136-145 mmol/L Potassium Level 3.9 3.5-5.1 mmol/L Chloride Level 94 98-107 mmol/L Carbon Dioxide Level 29 21-32 mmol/L Anion Gap 8.0 3-11 mmol/L Blood Urea Nitrogen 15 7-18 mg/dl Creatinine 0.88 0.60-1.20 mg/dl Est Creatinine Clear Calc Drug Dose 56.9 ml/min Estimated GFR () 77.2 Estimated GFR (Non- 66.6 BUN/Creatinine Ratio 17.3 10-20 Random Glucose 102 70-99 mg/dl Calcium Level 9.3 8.5-10.1 mg/dl Magnesium Level 1.6 1.8-2.4 mg/dl
[2017-01-02] MEDS: LEVOFLOXACIN / D5W 750 MG in PREMIXED IN D5W 150 ML IV SCH (19:11)
--- NOTE | 2017-01-02 20:47 | Medical Consult ---
Consultation Date of Consultation: Jan 02, 2017. Attending Physician: Xavier James MD History of Present Illness Hematology/Oncology consult: Evaluation management of anemia. Date of consultation: 01/02/[address] James. HPI: 71-year-old female, who is admitted at [facility] on 12/27/2016 for left hip MSSA infection, she had received several antibiotic courses in the past (Rocephin, vancomycin, daptomycin), found to have left neck femur fracture and joint effusion, plan for hip replacement surgery at tertiary [facility] in the near future. [employer] consulted for evaluation of anemia, I reviewed her chart, her hemoglobin level has remained on the lower side around 8-10 g/dL in the last few months since September,. She denies any bleeding from any sites, she had a fever earlier which has improved, she denies any increasing coughing, no nausea or vomiting, fair appetite, some weight loss present. No leg edema. She is on oral iron replacement therapy twice a day, has experienced some constipation. She also had a possible community-acquired pneumonia which has improved. REVIEW OF SYSTEMS: GENERAL: Weight loss present, feeling slightly weak and tired,, no fever, sweats or chills at present. SKIN: No skin rash, no bruising. HEAD: No new headache, no dizziness. EYES: No recent change in the vision, no diplopia, EARS: No earache no tinnitus, NOSE: No epistaxis, No nasal discharge or stuffiness, MOUTH: No sores, no dysphagia, no hoarseness of voice, NECK: No lumps, No swelling in thyroid area. No stiffness. PULMONARY: No cough, mild shortness of breath present, she ambulates slowly but she cannot put significant weight, no hemoptysis, no chest pain, No wheezing. CARDIOVASCULAR: No anginal chest pain, no PND, no orthopnea. No palpitation, no leg edema. No syncope. GASTROINTESTINAL: No abdominal pain, no nausea or vomiting. No diarrhea, No constipation. No blood in stool or black tarry stools. No abdominal distention. UROLOGIC: No burning urination. No hematuria. MUSCULOSKELETAL: Left hip joint pain present HEMATOLOGIC: No anemia, no bleeding disorder, No bruising. No history of blood transfusion. NEUROLOGIC: No seizures, no focal weakness, no speech difficulty, No memory disturbances. Tingling and numbness of the extremities present, she is on Neurontin therapy. PSYCHIATRIC: Some anxiety and depression present, she is on Pamelor. No psychosis. SLEEP: No sleep disorder. Past medical and surgical history: -hypertension, hyperlipidemia, chronic hyponatremia, septic arthritis involving the left hip since September,, she had ceftriaxone earlier followed by vancomycin, -paroxysmal atrial fibrillation, on Coumadin therapy. Social history: History of smoking present in the past, history of ETOH abuse in the past. 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 Family history: Not significant Medications: Please review her chart for detailed list of medications that she is on. Allergies: Please review her chart full list of medications that she is allergic to. On exam: - Alert and oriented x3, well built woman, not in any distress. - HEENT: no icterus, no pallor, Throat: Normal. - Neck: No palpable cervical lymphadenopathy. - Chest: clear to auscultation. - Abdomen: soft, nontender, no hepatomegaly, no splenomegaly. - No focal neuro deficit. - Extremities: no finger clubbing, no leg edema. Lab: Earlier in September,, her hemoglobin level was around 11.4 g/dL, since then she received 4 units of PRBC, received additional 2 units of PRBC today (2016). -WBC 04139, H&H of 7.6/24.8, Platelet count of 428,000, ANC 9900, absolute lymphocyte count 1200 (01/02/2017) -ESR--> 32 - BUN/Creat: 15/0.8, calcium 9.3 (01/02/2017) -Normal liver function test the other than albumin level of 1.9. -Vitamin B12--> 1230, Ferritin level--> 322, iron saturation 17% (10/18/2016) -IgG level--> 1880, IgA level 288, IgM 186 -Rheumatoid factor--> negative. ALETA--> negative. - INR 2.1 (01/02/2017) -Joint fluid culture--> Staphylococcus aureus (11/22/2016) -stool for C difficile--> negative. Imaging studies: -CT scan of the abdomen pelvis done on 11/20/2016 showed progressive left hip septic arthritis with increased size of the left hip effusion measuring 5.7 cm fluid collection. Cortical destruction at the base of femoral neck noted. -CT scan of the chest done on 12/27/2016--> no evidence of pulmonary embolism, small right pleural effusion, mild mediastinal hilar lymphadenopathy noted. Right upper lobe airspace opacities noted. - Bilateral lower extremity Doppler evaluation done on 12/31/2016 showed chronic thrombus changes involving the left common femoral vein, no sonographic evidence of acute DVT noted. ASSESSMENT AND PLAN: 71-year-old female, who has left hip septic arthritis going on since September,, has some baseline chronic anemia since then with hemoglobin level between 8-9 g/dL, she had received blood transfusion support since then, during this hospitalization her hemoglobin level has remained on the lower side, received 2 units of PRBC during this hospitalization, no evidence of iron deficiency noted, she had a normal Vitamin B12 level earlier, normal kidney and liver function test. Anemia appears to be related to the underlying chronic infection related to the left hip joint, platelet count is on the higher side which could be reactive in nature, PERRLA for leukocytosis also related to the infections. She is on oral iron replacement therapy has experienced some constipation, she is on stool softener and Senokot, I would consider for stopping oral iron replacement therapy. She could receive intravenous iron therapy in the form of Venofer to replenish the iron storage in the future if she has evidence of iron deficiency. I would consider blood transfusion as needed in her case. No further workup for anemia indicated at this time. Thanks for the consultation. Dr. Levon Lopez Hem/Onc (This note was completed using the dictation program Fluency Direct. As such, there may be misspellings, word substitutions, or other variations that should not change the essence of the clinical content of this encounter note. If there is need for further clarification, please direct questions to the provider listed above.) Past Medical/Surgical History Medical Problems: (1) Abnormal white blood cell count Status: Acute (2) Anemia Status: Acute (3) Dehydration Status: Acute (4) Effusion, left hip Status: Acute (5) Fall Status: Acute (6) Fall Status: Acute (7) Fracture of neck of left femur Status: Acute (8) Hypomagnesemia Status: Acute (9) Hyponatremia Status: Acute (10) Hyponatremia Status: Acute (11) Left hip pain Status: Acute (12) Lumbar contusion Status: Acute (13) Lumbar contusion Status: Acute (14) Pelvic fracture Status: Acute (15) Pelvic fracture Status: Acute (16) PNA (pneumonia) Status: Acute (17) Sepsis Status: Acute (18) Septic arthritis Status: Acute (19) SOB (shortness of breath) Status: Acute (20) Tachycardia Status: Acute (21) UTI (urinary tract infection) Status: Acute Family History FH: esophageal cancer FATHER Social History Smoking Status: Former Smoker Drug Use: none Marital Status: single Housing Status: lives with family Occupation Status: retired Allergies Coded Allergies: Brimonidine (Verified Allergy, Intermediate, OTHER-SEE COMMENT, 11/21/16) Toxic conjunctivitis Ceftriaxone (Verified Allergy, Intermediate, RASH, 11/26/16) Vancomycin (Verified Allergy, Intermediate, red jez syndrome, 11/26/16) pt reports the only way she was able to tolerate vanco was if it was given over a 4 hour period iv and was given hydroxyzine 25mg every 6 hours around the clock for 24 hours Codeine (Verified Allergy, Mild, GI SYMPTOMS, 11/26/16) Latex1 -Allergic Contact Dermititis (Verified Allergy, Mild, RASH, 11/21/16 ) Oxycodone (Verified Allergy, Mild, GI SYMPTOMS-TYL. W/CODEINE OK, 11/26/16) PT STATES "CAN TAKE TYENOL W/CODIENE WITH OUT ANY DIFFICULTY". Nickel (Verified Allergy, Unknown, RASH, 11/21/16) Diphenhydramine (Verified Adverse Reaction, Intermediate, Hyper, 11/26/16) as per patient opposite effect Current Inpatient Medications Current Inpatient Medications Medications (Trade) Dose Ordered Sig/Viviane Route Start Time Stop Time Status Last Admin Dose Admin Al Hydrox/Mg Hydrox/Simethicone (Maalox Max Susp) 15 ml Q4H PRN PO 12/27/16 21:45 01/26/17 21:44 Magnesium Hydroxide (Milk Of Magnesia Susp) 30 ml Q12H PRN PO 12/27/16 21:45 01/26/17 21:44 Ondansetron HCl (Zofran Inj) 4 mg Q6H PRN IV 12/27/16 21:45 01/26/17 21:44 01/02/17 09:08 4 MG Nitroglycerin (Nitrostat Tab) 0.4 mg UD PRN SL 12/27/16 21:45 01/26/17 21:44 Polyethylene (Miralax Powder Packet) 17 gm DAILY PRN PO 12/27/16 21:45 01/26/17 21:44 01/01/17 22:30 17 GM Acetaminophen (Tylenol Tab) 500 mg Q4 PRN PO 12/27/16 21:45 01/26/17 21:44 01/01/17 23:59 500 MG Bisacodyl (Dulcolax Tab) 5 mg UD PRN PO 12/27/16 21:45 01/26/17 21:44 01/02/17 15:39 5 MG Bisacodyl (Dulcolax Supp) 10 mg DAILY PRN IA 12/27/16 21:45 01/26/17 21:44 Betamethasone/ Clotrimazole (Lotrisone Crm) 1 appln BID EXT 12/28/16 09:00 01/27/17 08:59 01/01/17 22:14 1 APPLN Docusate Sodium (coLACE CAP) 100 mg BID PO 12/28/16 09:00 01/27/17 08:59 01/02/17 09:01 100 MG Famotidine (Pepcid Tab) 20 mg QAM PO 12/28/16 09:00 01/27/17 08:59 01/02/17 09:00 20 MG Gabapentin (Neurontin Cap) 300 mg HS PO 12/28/16 21:00 01/27/17 20:59 01/01/17 22:16 300 MG Hydromorphone HCl (Dilaudid Tab) 4 mg Q4 PRN PO 12/27/16 21:45 01/10/17 21:44 01/02/17 19:10 4 MG Hydroxyzine HCl (Vistaril Tab) 25 mg Q6H PRN PO 12/27/16 21:45 01/26/17 21:44 Latanoprost (Xalatan Oph Soln) 1 drops HS OP 12/28/16 21:00 01/27/17 20:59 01/01/17 22:13 1 DROPS Lorazepam (Ativan Tab) 0.5 mg TID PRN PO 12/27/16 21:45 01/26/17 21:44 12/28/16 20:49 0.5 MG Multivitamins/ Minerals (Multivitamin W/ Minerals Tab) 1 tab DAILY PO 12/28/16 09:00 01/27/17 08:59 01/02/17 09:01 1 TAB Nortriptyline HCl (Pamelor Cap) 25 mg HS PO 12/28/16 21:00 01/27/17 20:59 01/01/17 22:15 25 MG Ondansetron HCl (Zofran Odt) 4 mg Q6H PRN SL 12/27/16 21:45 01/26/17 21:44 12/28/16 08:25 4 MG Senna (Senokot Tab) 17.2 mg HS PO 12/28/16 21:00 01/27/17 20:59 01/01/17 22:17 17.2 MG Sodium Biphosphate/ Sodium Phosphate (Fleet Enema) 30 ml DAILY PRN IA 12/27/16 21:45 01/26/17 21:44 Tramadol HCl (Ultram Tab) 50 mg Q6 PRN PO 12/27/16 21:45 01/26/17 21:44 01/02/17 15:39 50 MG Ferrous Sulfate (Feosol Tab) 325 mg BID PO 12/28/16 09:00 01/27/17 08:59 01/02/17 09:01 325 MG Diltiazem HCl (Cardizem Cd Cap) 180 mg DAILY PO 12/28/16 09:00 01/27/17 08:59 01/02/17 09:00 180 MG Warfarin Sodium (Coumadin Tab) 2 mg Mo@1600 PO 12/31/16 16:00 01/30/17 15:59 12/31/16 17:18 2 MG Gabapentin (Neurontin Cap) 200 mg BID@0800,1400 PO 12/28/16 08:00 01/27/17 07:59 01/02/17 14:29 200 MG Warfarin Sodium (Coumadin Tab) 4 mg SuTuWeThFrSa@1600 PO 12/28/16 16:00 01/27/17 15:59 01/02/17 16:08 4 MG Levofloxacin (Consult) 1 ea UD PRN N/A 12/27/16 23:15 01/26/17 23:14 Heparin Sodium (Porcine) (Heparin 10 Unit/ ml 5 ml Flush) 5 ml PRN PRN FLUSH 12/28/16 00:15 01/27/17 00:14 01/01/17 12:14 5 ML Lidocaine (Lidoderm Patch 5%) 1 patch DAILY@0900 TD 12/28/16 09:00 01/27/17 08:59 01/02/17 09:01 1 PATCH Miscellaneous (Remove Lidoderm Patch) 1 ea DAILY@2100 N/A 12/28/16 21:00 01/27/17 20:59 01/01/17 21:00 1 EA Daptomycin 400 mg/ Syringe 8 ml @ 4 mls/min DAILY@1200 IV 12/28/16 12:00 01/05/17 12:01 01/02/17 12:14 4 MLS/MIN Magnesium Oxide (Mag-Ox Tab) 400 mg BID PO 12/28/16 09:00 01/27/17 08:59 01/02/17 09:00 400 MG Albuterol/ Ipratropium (Duoneb) 3 ml QIDR INH 12/30/16 16:00 01/29/17 15:59 01/02/17 20:00 3 ML Physical Exam Date Time Temp Pulse Resp B/P (MAP) Pulse Ox O2 Delivery O2 Flow Rate FiO2 01/02/17 20:45 95 16 94 Nasal Cannula 4.0 01/02/17 16:24 36.6 87 18 117/64 96 01/02/17 16:00 Nasal Cannula 3.0 01/02/17 16:00 37.2 88 16 113/67 94 3.0 01/02/17 14:50 36.9 87 16 114/60 94 3.0 01/02/17 14:20 36.7 75 16 119/63 95 3.0 01/02/17 14:18 94 16 95 Nasal Cannula 4.0 01/02/17 14:05 36.9 88 16 106/60 93 3.0 01/02/17 13:40 36.3 92 16 112/67 94 3.0 01/02/17 12:00 Nasal Cannula 3.0 01/02/17 11:31 36.5 107 20 125/71 (89) 93 Nasal Cannula 4.0 01/02/17 11:26 99 16 94 Nasal Cannula 4.0 01/02/17 08:00 Nasal Cannula 3.0 01/02/17 07:32 36.6 97 18 121/62 (81) 93 Nasal Cannula 4.0 01/02/17 07:15 97 16 93 Nasal Cannula 4.0 01/02/17 03:30 37.2 98 16 120/70 (87) 96 Nasal Cannula 4.0 Humidified Oxygen 01/02/17 00:05 Nasal Cannula 4.0 01/01/17 23:41 37.1 01/01/17 23:37 38.0 106 16 139/70 (93) 97 Nasal Cannula 4.0 Humidified Oxygen Laboratory Results Last 24 Hours Test 01/02/17 06:49 01/02/17 07:49 Prothrombin Time 22.9 SECONDS Prothromb Time International Ratio 2.1 White Blood Count 13.85 K/uL Red Blood Count 2.88 M/uL Hemoglobin 7.6 g/dL Hematocrit 24.8 % Mean Corpuscular Volume 86.1 fL Mean Corpuscular Hemoglobin 26.4 pg Mean Corpuscular Hemoglobin Concent 30.6 g/dl Platelet Count 428 K/uL Mean Platelet Volume 8.7 fL Neutrophils (%) (Auto) 71.9 % Lymphocytes (%) (Auto) 8.9 % Monocytes (%) (Auto) 7.0 % Eosinophils (%) (Auto) 11.6 % Basophils (%) (Auto) 0.2 % Neutrophils # (Auto) 9.95 K/uL Lymphocytes # (Auto) 1.23 K/uL Monocytes # (Auto) 0.97 K/uL Eosinophils # (Auto) 1.61 K/uL Basophils # (Auto) 0.03 K/uL RDW Standard Deviation 50.7 fL RDW Coefficient of Variation 15.8 % Immature Granulocyte % (Auto) 0.4 % Immature Granulocyte # (Auto) 0.06 K/uL Toxic Vacuolation 1+ Sodium Level 131 mmol/L Potassium Level 3.9 mmol/L Chloride Level 94 mmol/L Carbon Dioxide Level 29 mmol/L Anion Gap 8.0 mmol/L Blood Urea Nitrogen 15 mg/dl Creatinine 0.88 mg/dl Est Creatinine Clear Calc Drug Dose 56.9 ml/min Estimated GFR () 77.2 Estimated GFR (Non- 66.6 BUN/Creatinine Ratio 17.3 Random Glucose 102 mg/dl Calcium Level 9.3 mg/dl Magnesium Level 1.6 mg/dl
[2017-01-02] MEDS: LATANOPROST 0.005% OP SOLN 2.5 ML BTL OP SCH (21:01)
[2017-01-02] MEDS: SENNA 8.6 MG TAB PO SCH (21:02)
[2017-01-02] MEDS: NORTRIPTYLINE HCL 25 MG CAP PO SCH (21:02)
[2017-01-02] MEDS: GABAPENTIN 300 MG CAP PO SCH (21:03)
[2017-01-02] MEDS: POLYETHYLENE (MIRALAX) 17 GM PACK PO PRN (21:08)
[2017-01-03] VITALS (17 sets, daily range): BP systolic 102–136; BP diastolic 63–73; PULSE 87–111; TEMP 36.5–37; O2SAT 81–98
[2017-01-03] MEDS: HYDROmorphone HCL 2 MG TAB PO PRN ×4 (00:57→21:37)
[2017-01-03] MEDS: ALBUT/IPRATROP 3MG/0.5MG NEB 3 ML VIAL INH SCH ×4 (07:22→20:13)
[2017-01-03] MEDS: LORAZEPAM 0.5 MG TAB PO PRN (07:52)
[2017-01-03] MEDS: CEROVITE ADV FORMULA TAB PO SCH (07:53)
[2017-01-03] MEDS: DILTIAZEM HCL 180 MG CAPCR PO SCH (07:53)
[2017-01-03] MEDS: CLOTRIMAZOLE/BETAMETHASONE CR 15 GM TUBE EXT SCH ×2 (07:53→21:38)
[2017-01-03] MEDS: GABAPENTIN 100 MG CAP PO SCH ×2 (07:53→13:34)
[2017-01-03] MEDS: FERROUS SULFATE 325 MG TAB PO SCH ×2 (07:53→21:39)
[2017-01-03] MEDS: DOCUSATE SODIUM 100 MG CAP PO SCH ×2 (07:54→21:39)
[2017-01-03] MEDS: FAMOTIDINE 20 MG TAB PO SCH (07:54)
[2017-01-03] MEDS: MAGNESIUM OXIDE 400 MG TAB PO SCH ×2 (07:55→21:39)
[2017-01-03] MEDS: LIDODERM (LIDOCAINE) PATCH 5% TD SCH (07:55)
[2017-01-03 07:58] LABS: BASO % 0.2 %; BASO ABS # 0.03 K/uL (0-0.2); COMPLETE YES; EOS % 11.6 %; HEMATOCRIT 28.1 % (37-47); IG% 0.3 %; LYMPH % 14.2 %; LYMPH ABS # 1.72 K/uL (1.2-3.4); MEAN CELL VOLUME 83.9 fL (80-100); MEAN CORPUSCULAR HEMOGLOBIN 26.9 pg (25-34); MEAN PLATELET VOLUME 8.1 fL (7.4-10.4); MONO % 7.3 %; NEUT % 66.4 %; PLATELET COUNT 340 K/uL (130-400); RED BLOOD COUNT 3.35 M/uL (4.2-5.4); WHITE BLOOD COUNT 12.12 K/uL (4.8-10.8)
[2017-01-03] MEDS: ONDANSETRON INJ 2 MG/ML 2 ML VIAL IV PRN (08:04)
[2017-01-03 08:06] LABS: INR 2.1 (0.9-1.1); PROTHROMBIN TIME (PATIENT) 23.5 SECONDS (9.0-12.0)
[2017-01-03 08:31] LABS: BUN/CREATININE RATIO 19.9 (10-20); CALCIUM 9.2 mg/dl (8.5-10.1); CREATININE 0.87 mg/dl (0.60-1.20); MAGNESIUM 1.5 mg/dl (1.8-2.4); POTASSIUM 3.6 mmol/L (3.5-5.1)
--- NOTE | 2017-01-03 10:55 | Cardiology Follow-Up ---
Subjective Subjective Date of Service: Jan 03, 2017. Pt evaluation today including: conversation w/ patient, physical exam, chart review, lab review, review of studies, review of inpatient medication list Additional Details: Pt seen and examined, oob in chair, states that she's feeling much better after transfusion; breathing and strength have improved. Denies cp, palpitations or lightheadedness. Tele reviewed: sinus tach without arrhythmia. Problem List Medical Problems: (1) Abnormal white blood cell count Status: Acute (2) Anemia Status: Acute (3) Dehydration Status: Acute (4) Effusion, left hip Status: Acute (5) Fall Status: Acute (6) Fall Status: Acute (7) Fracture of neck of left femur Status: Acute (8) Hypomagnesemia Status: Acute (9) Hyponatremia Status: Acute (10) Hyponatremia Status: Acute (11) Left hip pain Status: Acute (12) Lumbar contusion Status: Acute (13) Lumbar contusion Status: Acute (14) Pelvic fracture Status: Acute (15) Pelvic fracture Status: Acute (16) PNA (pneumonia) Status: Acute (17) Sepsis Status: Acute (18) Septic arthritis Status: Acute (19) SOB (shortness of breath) Status: Acute (20) Tachycardia Status: Acute (21) UTI (urinary tract infection) Status: Acute Review of Systems Constitutional: + weakness, + fatigue Respiratory: + cough, + sputum, + shortness of breath, + dyspnea on exertion, No see HPI, No wheezing, No dyspnea at rest, No hemoptysis, No problem reported Cardiac: + edema, No see HPI, No chest pain, No orthopnea, No PND, No claudication, No palpitations, No problem reported Musculoskeletal: + joint pain Neurologic: + weakness, + balance problems Endo: + fatigue Objective Vital Signs Last Vital Signs Documentation Date Time Temp Pulse Resp B/P (MAP) Pulse Ox O2 Delivery O2 Flow Rate FiO2 01/03/17 07:25 108 16 93 Nasal Cannula 3.0 01/03/17 07:14 36.7 127/67 (87) Physical Exam: General Appearance: WD/WN, no apparent distress, + thin Eyes: bilateral eyes normal inspection, bilateral eyes PERRL, bilateral eyes EOMI ENT: normal ENT inspection, hearing grossly normal, pharynx normal Neck: supple, no adenopathy, thyroid normal, no JVD, no carotid bruits, trachea midline Respiratory/Chest: chest non-tender, no respiratory distress, + decreased breath sounds, + accessory muscle use, + rhonchi Cardiovascular: regular rate, rhythm, no edema, no JVD, no murmur, + tachycardia, + gallop/S4 Abdomen: normal bowel sounds, non tender, soft, no organomegaly Extremities: normal range of motion, non-tender, no calf tenderness, + pedal edema (+2 b/l LE pitting edema) Neurologic/Psychiatric: roving changer II-XII nml as tested, no motor/sensory deficits, alert, normal mood/affect, oriented x 3 Skin: normal color, warm/dry, no rash Assessment and Plan 1. PAF has remained in sinus appropriate sinus tach given pulmonary status will hold off on further rate control, cont current dose of diltiazem cont coumadin with goal INR of 2-3 2. anemia s/p transfusion appreciate hematology input 3. Hypoxia still requiring O2 no role for continued tele monitoring from cardiac standpoint
[2017-01-03] MEDS: DAPTOmycin IV 400 MG in SYRINGE 0 ML IV SCH (13:33)
[2017-01-03] MEDS ORDERED: LEVOFLOXACIN 750 MG TAB PO SCH (14:00)
[2017-01-03] MEDS: MAGNESIUM SULFATE 1GM / D5W 1 GM in PREMIXED IN D5W 100 ML IV SCH ×2 (14:23→15:40)
--- NOTE | 2017-01-03 14:58 | Progress Note ---
Subjective Date of Service: Jan 03, 2017. Subjective continues on abx, afebrile. decreased O2 needs. wbc decreased slightly. no overnight events. for hip surgery on 01/18 Problem List Medical Problems: (1) Abnormal white blood cell count Status: Acute (2) Anemia Status: Acute (3) Dehydration Status: Acute (4) Effusion, left hip Status: Acute (5) Fall Status: Acute (6) Fall Status: Acute (7) Fracture of neck of left femur Status: Acute (8) Hypomagnesemia Status: Acute (9) Hyponatremia Status: Acute (10) Hyponatremia Status: Acute (11) Left hip pain Status: Acute (12) Lumbar contusion Status: Acute (13) Lumbar contusion Status: Acute (14) Pelvic fracture Status: Acute (15) Pelvic fracture Status: Acute (16) PNA (pneumonia) Status: Acute (17) Sepsis Status: Acute (18) Septic arthritis Status: Acute (19) SOB (shortness of breath) Status: Acute (20) Tachycardia Status: Acute (21) UTI (urinary tract infection) Status: Acute Objective Vital Signs Date Time Temp Pulse Resp B/P (MAP) Pulse Ox O2 Delivery O2 Flow Rate FiO2 01/03/17 12:00 Nasal Cannula 3.0 01/03/17 11:47 36.9 101 20 125/67 (86) 91 Nasal Cannula 2.5 01/03/17 11:27 102 16 91 Nasal Cannula 3.0 01/03/17 08:00 Nasal Cannula 3.0 01/03/17 07:25 108 16 93 Nasal Cannula 3.0 01/03/17 07:14 36.7 110 127/67 (87) 81 Nasal Cannula 4.0 01/03/17 04:01 Nasal Cannula 3.0 01/03/17 02:50 37.0 105 18 128/70 (89) 90 01/03/17 00:05 Nasal Cannula 3.0 01/02/17 23:47 37.0 101 16 137/72 (93) 97 01/02/17 20:45 95 16 94 Nasal Cannula 4.0 01/02/17 20:05 Nasal Cannula 3.0 01/02/17 19:15 36.7 95 18 132/81 95 3.0 01/02/17 18:15 36.6 91 18 126/76 95 3.0 01/02/17 17:45 36.5 94 18 147/87 93 3.0 01/02/17 17:15 37.0 94 18 144/77 95 3.0 01/02/17 16:40 37.0 94 20 134/73 94 01/02/17 16:24 36.6 87 18 117/64 96 01/02/17 16:00 Nasal Cannula 3.0 01/02/17 16:00 37.2 88 16 113/67 94 3.0 Laboratory Results Item Value Date Time Gram Stain - Final Resulted 12/31/16 2130 Sputum Expectorated Sputum Blood Culture - Preliminary Resulted 12/30/16 0534 Blood NO GROWTH TO DATE. Blood Culture - Preliminary Resulted 12/30/16 0421 Blood NO GROWTH TO DATE. Blood Culture - Final Complete 12/27/16 1852 Blood NO GROWTH Blood Culture - Final Complete 12/27/16 1830 Blood NO GROWTH Gram Stain - Final Complete 12/31/16 2130 Sputum Expectorated Sputum Last 24 Hours Test 01/03/17 07:46 White Blood Count 12.12 K/uL Red Blood Count 3.35 M/uL Hemoglobin 9.0 g/dL Hematocrit 28.1 % Mean Corpuscular Volume 83.9 fL Mean Corpuscular Hemoglobin 26.9 pg Mean Corpuscular Hemoglobin Concent 32.0 g/dl Platelet Count 340 K/uL Mean Platelet Volume 8.1 fL Neutrophils (%) (Auto) 66.4 % Lymphocytes (%) (Auto) 14.2 % Monocytes (%) (Auto) 7.3 % Eosinophils (%) (Auto) 11.6 % Basophils (%) (Auto) 0.2 % Neutrophils # (Auto) 8.04 K/uL Lymphocytes # (Auto) 1.72 K/uL Monocytes # (Auto) 0.89 K/uL Eosinophils # (Auto) 1.40 K/uL Basophils # (Auto) 0.03 K/uL RDW Standard Deviation 51.4 fL RDW Coefficient of Variation 16.8 % Immature Granulocyte % (Auto) 0.3 % Immature Granulocyte # (Auto) 0.04 K/uL Prothrombin Time 23.5 SECONDS Prothromb Time International Ratio 2.1 Sodium Level 131 mmol/L Potassium Level 3.6 mmol/L Chloride Level 94 mmol/L Carbon Dioxide Level 29 mmol/L Anion Gap 8.0 mmol/L Blood Urea Nitrogen 17 mg/dl Creatinine 0.87 mg/dl Est Creatinine Clear Calc Drug Dose 58.0 ml/min Estimated GFR () 78.2 Estimated GFR (Non- 67.5 BUN/Creatinine Ratio 19.9 Random Glucose 85 mg/dl Calcium Level 9.2 mg/dl Magnesium Level 1.5 mg/dl Assessment and Plan (1) PNA (pneumonia) Assessment & Plan: follow repeat sputum culture, continue abx. all cultures negative to date (2) Septic arthritis Assessment & Plan: continue dapto through surgery
[2017-01-03] MEDS: WARFARIN SOD 4 MG TAB PO SCH (15:47)
[2017-01-03] MEDS: TRAMADOL HCL 50 MG TAB PO PRN (16:03)
[2017-01-03] MEDS ORDERED: ACETAMINOPHEN 325 MG TAB PO ONE (16:30)
[2017-01-03] MEDS ORDERED: FUROSEMIDE INJ 40 MG in SYRINGE 0 ML IV ONE (16:45)
--- NOTE | 2017-01-03 16:52 | DIAGNOSTIC IMAGING REPORT ---
CHEST ONE VIEW PORTABLE CLINICAL HISTORY: 71 years-old Female presenting with pneumonia. TECHNIQUE: Portable upright AP view of the chest was obtained. COMPARISON: 12/29/2016. FINDINGS: Atherosclerosis of aortic arch. Cardiac silhouette normal in size. Persistent right upper lobe reticular and hazy opacity. Previously noted opacity in the upper left lung on CT from 12/27/2016 is not well appreciated on this radiograph. No large pleural effusion or pneumothorax. Underlying emphysema better appreciated on CT as well. Degenerative changes of the bilateral glenohumeral joints. Prominent right Morgagni hernia evident. IMPRESSION: 1. Overall stable appearance of the right upper lobe opacities consistent with pneumonia. Left upper lobe opacities better appreciated on recent CT. Electronically signed by: Zaki Rubio M.D. 01/03/2017 4:51 PM Dictated Date/Time: 01/03/2017 4:48 PM
--- NOTE | 2017-01-03 16:54 | Pulmonology Progress Note ---
Pulmonary Progress Note Date of Service Jan 03, 2017. Attending Dr. Talbert Subjective Patient is feeling much improved today. She continues to be very fatigued because she states that her roommate has kept her up every night. Her labs were reviewed today. Her white blood cell count was 12.12. Hemoglobin 9.0. The eosinophilic 1.40. Her creatinine was 0.87/BUN 17. Sputum culture continues to show moderate normal diego and is finalized. She did have a repeat chest x-ray today, and the image was viewed by me today. Right upper lobe airspace opacity still noted and slightly more prominent on today's x-ray. Right diaphragmatic hernia again noted, and also slightly more prominent today 's chest x-ray. Patient overall feels that her breathing is stable. She continues on IV daptomycin for her septic arthritis. She continues to have mild cough, but producing sputum. Objective Vital signs reviewed: Patient been afebrile. HR 92-104 RR 16-20 SaO2 91-92% on 3.0 L General: Patient is awake, alert, cooperative, and in no acute distress. Well developed. Well-nourished. Skin: Normal appearance, texture, and temperature. No apparent rash or ecchymoses. HEENT: Normocephalic and atraumatic. Eyes are anicteric and non-erythematous. EOMI c PERRLA. Hearing intact and without difficulty. Nose appears normal and without drainage. Trachea midline. Thyroid appears normal, and neck is supple. Lungs: Overall clear to auscultation. Mildly decreased breath sounds. No accessory muscle use. Chest is nontender to palpation Heart: Regular rate and rhythm. Normal S1 and S2 heard. No S3/S4, rubs, murmurs , or gallops appreciated. Abdomen: Active bowel sounds. Extremities: Freely moving extremities during exam. Neuro: Alert and oriented X3. CN II-XII grossly intact. Sensation and motor function grossly intact. Psych: Mood and affect are normal. Assessment & Plan Hypoxemia Right upper lobe pneumonia Eosinophilia Anemia of chronic disease Hypoalbuminemia Right Hiatal hernia MSSA left hip Atrial fibrillation Patient continues to feel better. Video swallow showed no evidence of aspiration. She is on anticoagulation for atrial fibrillation. IgE, Aspergillus antibody, Fungitell are still pending. Continue with treatment for pneumonia with Levaquin and daptomycin for right hip , per ID recommendations. Continue with oxygen supplementation to maintain SaO2 above 92%. Continue titrating O2 as tolerated. Continue to optimize blood pressure and heart rate. She will need full PFTs as an outpatient and follow up with the [facility] Pulmonary department Continue with flutter valve. Continue the PPI. Replete electrolytes per primary team. Continue with Coumadin for anticoagulation. per primary team. Patient likely would benefit from diaphragmatic hernia repair to optimize her respiratory status. Overall, patient improving from a pulmonary perspective. She may require a 2- step O2 test prior to discharge, but otherwise continue recommendations from Infectious Disease. Pulmonary will sign off. Follow up with Pulmonary as outpatient following D/C. Please call with questions or changes in respiratory status. Thank you Data Medications: Current Inpatient Medications Medications (Trade) Dose Ordered Sig/Viviane Route Start Time Stop Time Status Last Admin Dose Admin Al Hydrox/Mg Hydrox/Simethicone (Maalox Max Susp) 15 ml Q4H PRN PO 12/27/16 21:45 01/26/17 21:44 Magnesium Hydroxide (Milk Of Magnesia Susp) 30 ml Q12H PRN PO 12/27/16 21:45 01/26/17 21:44 Ondansetron HCl (Zofran Inj) 4 mg Q6H PRN IV 12/27/16 21:45 01/26/17 21:44 01/03/17 08:04 4 MG Nitroglycerin (Nitrostat Tab) 0.4 mg UD PRN SL 12/27/16 21:45 01/26/17 21:44 Polyethylene (Miralax Powder Packet) 17 gm DAILY PRN PO 12/27/16 21:45 01/26/17 21:44 01/02/17 21:08 17 GM Acetaminophen (Tylenol Tab) 500 mg Q4 PRN PO 12/27/16 21:45 01/26/17 21:44 01/01/17 23:59 500 MG Bisacodyl (Dulcolax Tab) 5 mg UD PRN PO 12/27/16 21:45 01/26/17 21:44 01/02/17 15:39 5 MG Bisacodyl (Dulcolax Supp) 10 mg DAILY PRN [place] 12/27/16 21:45 01/26/17 21:44 Betamethasone/ Clotrimazole (Lotrisone Crm) 1 appln BID EXT 12/28/16 09:00 12/3/17 08:59 01/03/17 07:53 1 APPLN Docusate Sodium (coLACE CAP) 100 mg BID PO 12/28/16 09:00 01/27/17 08:59 01/03/17 07:54 100 MG Famotidine (Pepcid Tab) 20 mg QAM PO 12/28/16 09:00 01/27/17 08:59 01/03/17 07:54 20 MG Gabapentin (Neurontin Cap) 300 mg HS PO 12/28/16 21:00 01/27/17 20:59 01/02/17 21:03 300 MG Hydromorphone HCl (Dilaudid Tab) 4 mg Q4 PRN PO 12/27/16 21:45 01/10/17 21:44 01/03/17 14:24 4 MG Hydroxyzine HCl (Vistaril Tab) 25 mg Q6H PRN PO 12/27/16 21:45 01/26/17 21:44 Latanoprost (Xalatan Oph Soln) 1 drops HS OP 12/28/16 21:00 01/27/17 20:59 01/02/17 21:01 1 DROPS Lorazepam (Ativan Tab) 0.5 mg TID PRN PO 12/27/16 21:45 01/26/17 21:44 01/03/17 07:52 0.5 MG Multivitamins/ Minerals (Multivitamin W/ Minerals Tab) 1 tab DAILY PO 12/28/16 09:00 01/27/17 08:59 01/03/17 07:53 1 TAB Nortriptyline HCl (Pamelor Cap) 25 mg HS PO 12/28/16 21:00 01/27/17 20:59 01/02/17 21:02 25 MG Ondansetron HCl (Zofran Odt) 4 mg Q6H PRN SL 12/27/16 21:45 01/26/17 21:44 12/28/16 08:25 4 MG Senna (Senokot Tab) 17.2 mg HS PO 12/28/16 21:00 01/27/17 20:59 01/02/17 21:02 17.2 MG Sodium Biphosphate/ Sodium Phosphate (Fleet Enema) 30 ml DAILY PRN [place] 12/27/16 21:45 01/26/17 21:44 Tramadol HCl (Ultram Tab) 50 mg Q6 PRN PO 12/27/16 21:45 01/26/17 21:44 01/03/17 16:03 50 MG Ferrous Sulfate (Feosol Tab) 325 mg BID PO 12/28/16 09:00 01/27/17 08:59 01/03/17 07:53 325 MG Diltiazem HCl (Cardizem Cd Cap) 180 mg DAILY PO 12/28/16 09:00 01/27/17 08:59 01/03/17 07:53 180 MG Warfarin Sodium (Coumadin Tab) 2 mg Mo@1600 PO 12/31/16 16:00 01/30/17 15:59 12/31/16 17:18 2 MG Gabapentin (Neurontin Cap) 200 mg BID@0800,1400 PO 12/28/16 08:00 01/27/17 07:59 01/03/17 13:34 200 MG Warfarin Sodium (Coumadin Tab) 4 mg SuTuWeThFrSa@1600 PO 12/28/16 16:00 01/27/17 15:59 01/03/17 15:47 4 MG Heparin Sodium (Porcine) (Heparin 10 Unit/ ml 5 ml Flush) 5 ml PRN PRN FLUSH 12/28/16 00:15 01/27/17 00:14 01/01/17 12:14 5 ML Lidocaine (Lidoderm Patch 5%) 1 patch DAILY@0900 TD 12/28/16 09:00 01/27/17 08:59 01/03/17 07:55 1 PATCH Miscellaneous (Remove Lidoderm Patch) 1 ea DAILY@2100 N/A 12/28/16 21:00 01/27/17 20:59 01/02/17 20:58 1 EA Daptomycin 400 mg/ Syringe 8 ml @ 4 mls/min DAILY@1200 IV 12/28/16 12:00 01/17/17 11:59 01/03/17 13:33 4 MLS/MIN Magnesium Oxide (Mag-Ox Tab) 400 mg BID PO 12/28/16 09:00 01/27/17 08:59 01/03/17 07:55 400 MG Albuterol/ Ipratropium (Duoneb) 3 ml QIDR INH 11/5/17 16:00 01/29/17 15:59 01/03/17 15:04 3 ML Levofloxacin (Levaquin Tab) 750 mg DAILY@11 PO 01/03/17 14:00 01/10/17 13:59 01/03/17 13:33 750 MG Furosemide 40 mg/ Syringe 4 ml @ 4 mls/min NOW ONCE IV 01/03/17 16:45 01/03/17 16:46 I & O: 24-Hour Column 01/04/17 07:59 Intake Total 275 ml Output Total 400 ml Balance -125 ml Vital Signs: Date Time Temp Pulse Resp B/P (MAP) Pulse Ox O2 Delivery O2 Flow Rate FiO2 01/03/17 15:28 36.8 92 20 115/64 (81) 92 Nasal Cannula 3.0 01/03/17 15:05 104 16 91 Nasal Cannula 3.0 01/03/17 12:00 Nasal Cannula 3.0 01/03/17 11:47 36.9 101 20 125/67 (86) 91 Nasal Cannula 2.5 01/03/17 11:27 102 16 91 Nasal Cannula 3.0 01/03/17 08:00 Nasal Cannula 3.0 01/03/17 07:25 108 16 93 Nasal Cannula 3.0 01/03/17 07:14 36.7 110 127/67 (87) 81 Nasal Cannula 4.0 01/03/17 04:01 Nasal Cannula 3.0 01/03/17 02:50 37.0 105 18 128/70 (89) 90 01/03/17 00:05 Nasal Cannula 3.0 01/02/17 23:47 37.0 101 16 137/72 (93) 97 01/02/17 20:45 95 16 94 Nasal Cannula 4.0 01/02/17 20:05 Nasal Cannula 3.0 01/02/17 19:15 36.7 95 18 132/81 95 3.0 01/02/17 18:15 36.6 91 18 126/76 95 3.0 01/02/17 17:45 36.5 94 18 147/87 93 3.0 01/02/17 17:15 37.0 94 18 144/77 95 3.0 01/02/17 16:40 37.0 94 20 134/73 94 Laboratory Results: Last 24 Hours Test 01/03/17 07:46 White Blood Count 12.12 K/uL Red Blood Count 3.35 M/uL Hemoglobin 9.0 g/dL Hematocrit 28.1 % Mean Corpuscular Volume 83.9 fL Mean Corpuscular Hemoglobin 26.9 pg Mean Corpuscular Hemoglobin Concent 32.0 g/dl Platelet Count 340 K/uL Mean Platelet Volume 8.1 fL Neutrophils (%) (Auto) 66.4 % Lymphocytes (%) (Auto) 14.2 % Monocytes (%) (Auto) 7.3 % Eosinophils (%) (Auto) 11.6 % Basophils (%) (Auto) 0.2 % Neutrophils # (Auto) 8.04 K/uL Lymphocytes # (Auto) 1.72 K/uL Monocytes # (Auto) 0.89 K/uL Eosinophils # (Auto) 1.40 K/uL Basophils # (Auto) 0.03 K/uL RDW Standard Deviation 51.4 fL RDW Coefficient of Variation 16.8 % Immature Granulocyte % (Auto) 0.3 % Immature Granulocyte # (Auto) 0.04 K/uL Prothrombin Time 23.5 SECONDS Prothromb Time International Ratio 2.1 Sodium Level 131 mmol/L Potassium Level 3.6 mmol/L Chloride Level 94 mmol/L Carbon Dioxide Level 29 mmol/L Anion Gap 8.0 mmol/L Blood Urea Nitrogen 17 mg/dl Creatinine 0.87 mg/dl Est Creatinine Clear Calc Drug Dose 58.0 ml/min Estimated GFR () 78.2 Estimated GFR (Non- 67.5 BUN/Creatinine Ratio 19.9 Random Glucose 85 mg/dl Calcium Level 9.2 mg/dl Magnesium Level 1.5 mg/dl
--- NOTE | 2017-01-03 18:12 | Progress Note ---
Internal Med Progress Note Date of Service: Jan 03, 2017. Provider Documentation: SUBJECTIVE: resting comfortably sob is ok has cough afebrile ambulated some in room OBJECTIVE: Vital Signs-as noted below Exam: General-alert and oriented. Not in distress ENT-normal hearing Neck-no neck masses Lungs- cta b/l no wheezing or crackles Heart-s1 and s2 heard regular rate and rhythm no murmurs Abdomen-soft bowel sounds present no tenderness present no distension Extremities-lower extremity edema present more on left lower extremity no erythema Neuro-alert and oriented moves extremities Lab data as noted below. ASSESSMENT & PLAN: This 71-year-old female presents with shortness of breath and found to have pneumonia. Pneumonia, community versus hospital acquired pneumonia. The patient has a history of MSSA in the blood cultures and wound cultures and she had two 6 weeks of antibiotics currently on daptomycin, supposed to get done on 2016. She received IV Levaquin in the ER which continued as 750 mg IV q24 hours . cx no growth so far improving to continue Levaquin total of 10days. repeat cxr today stable appearance ID and Pulmonary on board and appreciate inputs. stable Left hip septic arthritis, initially finished 6 weeks of IV ceftriaxone and IV vancomycin and got reinfected and again status post I&D and currently on IV daptomycin, which she is supposed to get done by 01/04/2017. Plan for left hip surgery in [place] on 01/18 Antibiotics as per ID. To continue iv daptomycin until surgery on 01/18 stable History of atrial fibrillation, on diltiazem 180 mg daily and Coumadin. INR 2.1 today cardiology consulted-appreciate inputs. Ultrasound Lower extremity 12/31/16 Trace chronic appearing thrombus is questioned within the left common femoral vein. on Coumadin Chronic anemia with a hemoglobin baseline around 8-9. Hgb between 7 to 8 during this admission. will transfuse two units prbc consult heme/onco for chronic anemia Hypertension controlled on diltiazem 180 mg daily electrolyte deficiencies: replace. f/u labs. history of CKD but renal labs on this admission has been showing estimated GFR above 75 and generally stable renal function Deep venous thrombosis prophylaxis on Coumadin. DISPOSITION pt/ot social service for d/c planning possible d/c in 1-2 days if stable Vital Signs: Date Time Temp Pulse Resp B/P (MAP) Pulse Ox O2 Delivery O2 Flow Rate FiO2 01/03/17 17:14 36.5 97 16 131/73 01/03/17 15:28 36.8 92 20 115/64 (81) 92 Nasal Cannula 3.0 01/03/17 15:05 104 16 91 Nasal Cannula 3.0 01/03/17 12:00 Nasal Cannula 3.0 01/03/17 11:47 36.9 101 20 125/67 (86) 91 Nasal Cannula 2.5 01/03/17 11:27 102 16 91 Nasal Cannula 3.0 01/03/17 08:00 Nasal Cannula 3.0 01/03/17 07:25 108 16 93 Nasal Cannula 3.0 01/03/17 07:14 36.7 110 127/67 (87) 81 Nasal Cannula 4.0 01/03/17 04:01 Nasal Cannula 3.0 01/03/17 02:50 37.0 105 18 128/70 (89) 90 01/03/17 00:05 Nasal Cannula 3.0 01/02/17 23:47 37.0 101 16 137/72 (93) 97 01/02/17 20:45 95 16 94 Nasal Cannula 4.0 01/02/17 20:05 Nasal Cannula 3.0 01/02/17 19:15 36.7 95 18 132/81 95 3.0 01/02/17 18:15 36.6 91 18 126/76 95 3.0 Lab Results: Results Past 24 Hours Test 01/03/17 07:46 Range/Units White Blood Count 12.12 4.8-10.8 K/uL Red Blood Count 3.35 4.2-5.4 M/uL Hemoglobin 9.0 12.0-16.0 g/dL Hematocrit 28.1 37-47 % Mean Corpuscular Volume 83.9 80-100 fL Mean Corpuscular Hemoglobin 26.9 25-34 pg Mean Corpuscular Hemoglobin Concent 32.0 32-36 g/dl Platelet Count 340 130-400 K/uL Mean Platelet Volume 8.1 7.4-10.4 fL Neutrophils (%) (Auto) 66.4 % Lymphocytes (%) (Auto) 14.2 % Monocytes (%) (Auto) 7.3 % Eosinophils (%) (Auto) 11.6 % Basophils (%) (Auto) 0.2 % Neutrophils # (Auto) 8.04 1.4-6.5 K/uL Lymphocytes # (Auto) 1.72 1.2-3.4 K/uL Monocytes # (Auto) 0.89 0.11-0.59 K/uL Eosinophils # (Auto) 1.40 0-0.5 K/uL Basophils # (Auto) 0.03 0-0.2 K/uL RDW Standard Deviation 51.4 36.4-46.3 fL RDW Coefficient of Variation 16.8 11.5-14.5 % Immature Granulocyte % (Auto) 0.3 % Immature Granulocyte # (Auto) 0.04 0.00-0.02 K/uL Prothrombin Time 23.5 9.0-12.0 SECONDS Prothromb Time International Ratio 2.1 0.9-1.1 Sodium Level 131 136-145 mmol/L Potassium Level 3.6 3.5-5.1 mmol/L Chloride Level 94 98-107 mmol/L Carbon Dioxide Level 29 21-32 mmol/L Anion Gap 8.0 3-11 mmol/L Blood Urea Nitrogen 17 7-18 mg/dl Creatinine 0.87 0.60-1.20 mg/dl Est Creatinine Clear Calc Drug Dose 58.0 ml/min Estimated GFR () 78.2 Estimated GFR (Non- 67.5 BUN/Creatinine Ratio 19.9 10-20 Random Glucose 85 70-99 mg/dl Calcium Level 9.2 8.5-10.1 mg/dl Magnesium Level 1.5 1.8-2.4 mg/dl
[2017-01-03] MEDS ORDERED: MAGNESIUM OXIDE 400 MG TAB PO SCH (21:00)
[2017-01-03] MEDS: LATANOPROST 0.005% OP SOLN 2.5 ML BTL OP SCH (21:38)
[2017-01-03] MEDS: GABAPENTIN 300 MG CAP PO SCH (21:41)
[2017-01-03] MEDS: SENNA 8.6 MG TAB PO SCH (21:42)
[2017-01-03] MEDS: NORTRIPTYLINE HCL 25 MG CAP PO SCH (21:42)
[2017-01-04] VITALS (9 sets, daily range): BP systolic 112–149; BP diastolic 68–78; PULSE 94–119; TEMP 36.4–36.9; O2SAT 91–95
[2017-01-04] MEDS: TRAMADOL HCL 50 MG TAB PO PRN ×2 (00:10→17:10)
[2017-01-04] MEDS: ALBUT/IPRATROP 3MG/0.5MG NEB 3 ML VIAL INH SCH ×4 (07:06→19:34)
[2017-01-04 07:52] LABS: BASO % 0.3 %; BASO ABS # 0.03 K/uL (0-0.2); COMPLETE YES; EOS % 12.6 %; HEMATOCRIT 31.4 % (37-47); IG% 0.3 %; LYMPH % 12.8 %; LYMPH ABS # 1.49 K/uL (1.2-3.4); MEAN CELL VOLUME 84.2 fL (80-100); MEAN CORPUSCULAR HEMOGLOBIN 28.2 pg (25-34); MEAN CORPUSCULAR HGB CONC 33.4 g/dl (32-36); MEAN PLATELET VOLUME 8.2 fL (7.4-10.4); MONO % 6.9 %; NEUT % 67.1 %; PLATELET COUNT 350 K/uL (130-400); RED BLOOD COUNT 3.73 M/uL (4.2-5.4); WHITE BLOOD COUNT 11.63 K/uL (4.8-10.8)
[2017-01-04] MEDS: LIDODERM (LIDOCAINE) PATCH 5% TD SCH (07:55)
[2017-01-04] MEDS: FAMOTIDINE 20 MG TAB PO SCH (07:55)
[2017-01-04] MEDS: DILTIAZEM HCL 180 MG CAPCR PO SCH (07:55)
[2017-01-04] MEDS: DOCUSATE SODIUM 100 MG CAP PO SCH ×2 (07:56→20:47)
[2017-01-04] MEDS: GABAPENTIN 100 MG CAP PO SCH ×2 (07:56→12:50)
[2017-01-04] MEDS: CEROVITE ADV FORMULA TAB PO SCH (07:56)
[2017-01-04] MEDS: FERROUS SULFATE 325 MG TAB PO SCH ×2 (07:56→20:47)
[2017-01-04] MEDS: CLOTRIMAZOLE/BETAMETHASONE CR 15 GM TUBE EXT SCH ×2 (07:57→20:48)
[2017-01-04] MEDS: MAGNESIUM OXIDE 400 MG TAB PO SCH ×2 (07:57→20:47)
[2017-01-04 08:28] LABS: BUN/CREATININE RATIO 25.2 (10-20); CALCIUM 9.5 mg/dl (8.5-10.1); CREATININE 0.77 mg/dl (0.60-1.20); MAGNESIUM 1.6 mg/dl (1.8-2.4); POTASSIUM 3.2 mmol/L (3.5-5.1)
[2017-01-04] MEDS: ONDANSETRON INJ 2 MG/ML 2 ML VIAL IV PRN (08:37)
[2017-01-04] MEDS: HYDROmorphone HCL 2 MG TAB PO PRN ×3 (08:38→21:06)
--- NOTE | 2017-01-04 09:54 | Cardiology Follow-Up ---
Subjective Subjective Date of Service: Jan 04, 2017. Pt evaluation today including: conversation w/ patient, physical exam, chart review, lab review, review of studies, review of inpatient medication list Additional Details: Pt seen and examined, states that she's tired after a restless night due to her roommate. Otherwise, breathing is improving but does not feel she can go without O2 yet. Denies cp, sob, palpitations, lightheadedness or dizziness. Tele reviewed: sinus rhythm/sinus tach Problem List Medical Problems: (1) Abnormal white blood cell count Status: Acute (2) Anemia Status: Acute (3) Dehydration Status: Acute (4) Effusion, left hip Status: Acute (5) Fall Status: Acute (6) Fall Status: Acute (7) Fracture of neck of left femur Status: Acute (8) Hypomagnesemia Status: Acute (9) Hyponatremia Status: Acute (10) Hyponatremia Status: Acute (11) Left hip pain Status: Acute (12) Lumbar contusion Status: Acute (13) Lumbar contusion Status: Acute (14) Pelvic fracture Status: Acute (15) Pelvic fracture Status: Acute (16) PNA (pneumonia) Status: Acute (17) Sepsis Status: Acute (18) Septic arthritis Status: Acute (19) SOB (shortness of breath) Status: Acute (20) Tachycardia Status: Acute (21) UTI (urinary tract infection) Status: Acute Review of Systems Constitutional: + weakness, + fatigue Respiratory: + cough, + sputum, + shortness of breath, + dyspnea on exertion, No see HPI, No wheezing, No dyspnea at rest, No hemoptysis, No problem reported Cardiac: + edema, No see HPI, No chest pain, No orthopnea, No PND, No claudication, No palpitations, No problem reported Musculoskeletal: + joint pain Neurologic: + weakness, + balance problems Endo: + fatigue Objective Vital Signs Last Vital Signs Documentation Date Time Temp Pulse Resp B/P (MAP) Pulse Ox O2 Delivery O2 Flow Rate FiO2 01/04/17 07:49 36.9 101 18 125/72 (89) 91 Nasal Cannula 3.0 Physical Exam: General Appearance: WD/WN, no apparent distress, + thin Eyes: bilateral eyes normal inspection, bilateral eyes PERRL, bilateral eyes EOMI ENT: normal ENT inspection, hearing grossly normal, pharynx normal Neck: supple, no adenopathy, thyroid normal, no JVD, no carotid bruits, trachea midline Respiratory/Chest: chest non-tender, no respiratory distress, + decreased breath sounds, + accessory muscle use, + rhonchi Cardiovascular: regular rate, rhythm, no edema, no JVD, no murmur, + tachycardia, + gallop/S4 Abdomen: normal bowel sounds, non tender, soft, no organomegaly Extremities: normal range of motion, non-tender, no calf tenderness, + pedal edema (+2 b/l LE pitting edema) Neurologic/Psychiatric: ferry terminal agent II-XII nml as tested, no motor/sensory deficits, alert, normal mood/affect, oriented x 3 Skin: normal color, warm/dry, no rash Assessment and Plan 1. PAF has remained in sinus appropriate sinus tach given pulmonary status will hold off on further rate control, cont current dose of diltiazem cont coumadin with goal INR of 2-3 2. anemia s/p transfusion appreciate hematology input 3. Hypoxia still requiring O2 no role for continued tele monitoring from cardiac standpoint will sign off, please call with questions or concerns
--- NOTE | 2017-01-04 10:45 | Progress Note ---
Subjective Date of Service: Jan 04, 2017. Subjective Pt evaluation today including: conversation w/ patient, physical exam, chart review, lab review pt feeling better, breathing improved, cough less, O2 titering down. remains on abx, surgery now scheduled for 01/18. Awaiting d/c. no cp, no wheeze, no abd pain, no n/v/d. All remaining ros reviewed and are negative. Problem List Medical Problems: (1) Abnormal white blood cell count Status: Acute (2) Anemia Status: Acute (3) Dehydration Status: Acute (4) Effusion, left hip Status: Acute (5) Fall Status: Acute (6) Fall Status: Acute (7) Fracture of neck of left femur Status: Acute (8) Hypomagnesemia Status: Acute (9) Hyponatremia Status: Acute (10) Hyponatremia Status: Acute (11) Left hip pain Status: Acute (12) Lumbar contusion Status: Acute (13) Lumbar contusion Status: Acute (14) Pelvic fracture Status: Acute (15) Pelvic fracture Status: Acute (16) PNA (pneumonia) Status: Acute (17) Sepsis Status: Acute (18) Septic arthritis Status: Acute (19) SOB (shortness of breath) Status: Acute (20) Tachycardia Status: Acute (21) UTI (urinary tract infection) Status: Acute Objective Vital Signs Date Time Temp Pulse Resp B/P (MAP) Pulse Ox O2 Delivery O2 Flow Rate FiO2 01/04/17 08:00 Nasal Cannula 2.0 01/04/17 07:49 36.9 101 18 125/72 (89) 91 Nasal Cannula 3.0 01/04/17 07:06 101 16 92 Nasal Cannula 3.0 01/04/17 04:00 Nasal Cannula 3.0 01/04/17 03:54 36.7 107 20 142/69 (93) 91 Nasal Cannula 3.0 01/04/17 00:00 Nasal Cannula 3.0 01/03/17 23:41 36.7 87 16 124/69 (87) 98 Nasal Cannula 3.0 01/03/17 20:55 36.5 88 16 110/65 95 3.0 01/03/17 20:15 Nasal Cannula 3.0 01/03/17 20:13 99 16 93 Nasal Cannula 3.0 01/03/17 20:05 36.5 88 18 102/63 95 01/03/17 18:50 36.5 89 16 118/65 94 3.0 01/03/17 18:20 36.6 90 16 136/66 94 3.0 01/03/17 17:50 36.6 95 18 118/67 95 3.0 01/03/17 17:35 36.9 111 16 126/72 94 3.0 01/03/17 17:14 36.5 97 16 131/73 01/03/17 16:15 92 Nasal Cannula 3.0 01/03/17 15:28 36.8 92 20 115/64 (81) 92 Nasal Cannula 3.0 01/03/17 15:05 104 16 91 Nasal Cannula 3.0 01/03/17 12:00 Nasal Cannula 3.0 01/03/17 11:47 36.9 101 20 125/67 (86) 91 Nasal Cannula 2.5 01/03/17 11:27 102 16 91 Nasal Cannula 3.0 Physical Exam General Appearance: WD/WN, no apparent distress Eyes: normal inspection, EOMI Neck: supple Respiratory/Chest: lungs clear, normal breath sounds, no respiratory distress Cardiovascular: regular rate, rhythm, no edema Abdomen: soft Extremities: non-tender, no pedal edema Neurologic/Psychiatric: alert, oriented x 3 Skin: normal color, no rash Laboratory Results Item Value Date Time Gram Stain - Final Complete 12/31/16 2130 Sputum Expectorated Sputum Blood Culture - Final Complete 12/30/16 0534 Blood NO GROWTH Blood Culture - Final Complete 12/30/16 0421 Blood NO GROWTH Gram Stain - Final Complete 12/29/16 0452 Sputum Expectorated Sputum Blood Culture - Final Complete 12/27/16 1852 Blood NO GROWTH Blood Culture - Final Complete 12/27/16 1830 Blood NO GROWTH Last 24 Hours Test 01/04/17 07:36 White Blood Count 11.63 K/uL Red Blood Count 3.73 M/uL Hemoglobin 10.5 g/dL Hematocrit 31.4 % Mean Corpuscular Volume 84.2 fL Mean Corpuscular Hemoglobin 28.2 pg Mean Corpuscular Hemoglobin Concent 33.4 g/dl Platelet Count 350 K/uL Mean Platelet Volume 8.2 fL Neutrophils (%) (Auto) 67.1 % Lymphocytes (%) (Auto) 12.8 % Monocytes (%) (Auto) 6.9 % Eosinophils (%) (Auto) 12.6 % Basophils (%) (Auto) 0.3 % Neutrophils # (Auto) 7.81 K/uL Lymphocytes # (Auto) 1.49 K/uL Monocytes # (Auto) 0.80 K/uL Eosinophils # (Auto) 1.47 K/uL Basophils # (Auto) 0.03 K/uL RDW Standard Deviation 49.3 fL RDW Coefficient of Variation 16.0 % Immature Granulocyte % (Auto) 0.3 % Immature Granulocyte # (Auto) 0.03 K/uL Sodium Level 131 mmol/L Potassium Level 3.2 mmol/L Chloride Level 92 mmol/L Carbon Dioxide Level 28 mmol/L Anion Gap 11.0 mmol/L Blood Urea Nitrogen 19 mg/dl Creatinine 0.77 mg/dl Est Creatinine Clear Calc Drug Dose 64.3 ml/min Estimated GFR () 90.7 Estimated GFR (Non- 78.2 BUN/Creatinine Ratio 25.2 Random Glucose 97 mg/dl Calcium Level 9.5 mg/dl Magnesium Level 1.6 mg/dl Assessment and Plan (1) PNA (pneumonia) Assessment & Plan: will stop levaquin today, continue supportive care. all cultures negative, no further recs at this time. (2) Septic arthritis Assessment & Plan: continue dapto with weekly labs until surgery. can follow with ID as outpt.
[2017-01-04] MEDS ORDERED: POTASSIUM CHLORIDE 20 MEQ TABCR PO ONE (11:30)
[2017-01-04] MEDS: DAPTOmycin IV 400 MG in SYRINGE 0 ML IV SCH (12:50)
[2017-01-04] MEDS: FUROSEMIDE INJ 20 MG in SYRINGE 0 ML IV SCH (12:51)
[2017-01-04 13:36] LABS: ASPERGILLUS FLAVUS Negative (Negative); ASPERGILLUS FUMIGATUS Negative (Negative); ASPERGILLUS NIGER Negative (Negative); FUNGITELL (1-3)-B-D-GLUCAN* <31 pg/mL; FUNGITELL INTERP NEGATIVE; IMMUNOGLOBULIN E TC 24620E 129 KU/L (<115)
[2017-01-04] MEDS: WARFARIN SOD 4 MG TAB PO SCH (15:57)
--- NOTE | 2017-01-04 17:22 | Progress Note ---
Internal Med Progress Note Date of Service: Jan 04, 2017. Provider Documentation: SUBJECTIVE: resting comfortably says sob and cough is better ambulating little eating ok awaiting placement OBJECTIVE: Vital Signs-as noted below Exam: General-alert and oriented. Not in distress ENT-normal hearing Neck-no neck masses Lungs- cta b/l no wheezing or crackles Heart-s1 and s2 heard regular rate and rhythm no murmurs Abdomen-soft bowel sounds present no tenderness present no distension Extremities-lower extremity edema present more on left lower extremity no erythema Neuro-alert and oriented moves extremities Lab data as noted below. ASSESSMENT & PLAN: This 71-year-old female presents with shortness of breath and found to have pneumonia. Pneumonia, community versus hospital acquired pneumonia. The patient has a history of MSSA in the blood cultures and wound cultures and she had two 6 weeks of antibiotics currently on daptomycin, supposed to get done on 2016. She received IV Levaquin in the ER which continued as 750 mg IV q24 hours . cx no growth so far improving to continue Levaquin total of 10days#8. repeat cxr103/05/16 stable appearance ID and Pulmonary on board and appreciate inputs. stable Left hip septic arthritis, initially finished 6 weeks of IV ceftriaxone and IV vancomycin and got reinfected and again status post I&D and currently on IV daptomycin, which she is supposed to get done by 01/04/2017. Plan for left hip surgery in [place] on 01/18 Antibiotics as per ID. To continue iv daptomycin until surgery on 01/18 stable History of atrial fibrillation, on diltiazem 180 mg daily and Coumadin. INR 2.1 cardiology consulted-appreciate inputs. Ultrasound Lower extremity 12/31/16 Trace chronic appearing thrombus is questioned within the left common femoral vein. on Coumadin acute on chronic diastolic chf? lower extremity edema iv Lasix daily will monitor Chronic anemia with a hemoglobin baseline around 8-9. Hgb between 7 to 8 during this admission. s/p transfused three units prbc. hb 10.5 today consulted heme/onco for chronic anemia and appreciate inputs Hypertension controlled on diltiazem 180 mg daily electrolyte deficiencies: replace. f/u labs. history of CKD but renal labs on this admission has been showing estimated GFR above 75 and generally stable renal function Deep venous thrombosis prophylaxis on Coumadin. DISPOSITION pt/ot social service for d/c planning await placement to facility that accepts iv daptomycin Vital Signs: Date Time Temp Pulse Resp B/P (MAP) Pulse Ox O2 Delivery O2 Flow Rate FiO2 01/04/17 16:00 Nasal Cannula 2.0 01/04/17 15:32 99 16 95 Nasal Cannula 2.0 01/04/17 12:31 36.4 119 18 133/76 (95) 93 Room Air 01/04/17 12:00 Nasal Cannula 2.0 01/04/17 10:46 115 26 91 Nasal Cannula 2.0 01/04/17 08:00 Nasal Cannula 2.0 01/04/17 07:49 36.9 101 18 125/72 (89) 91 Nasal Cannula 3.0 01/04/17 07:06 101 16 92 Nasal Cannula 3.0 01/04/17 04:00 Nasal Cannula 3.0 01/04/17 03:54 36.7 107 20 142/69 (93) 91 Nasal Cannula 3.0 01/04/17 00:00 Nasal Cannula 3.0 01/03/17 23:41 36.7 87 16 124/69 (87) 98 Nasal Cannula 3.0 01/03/17 20:55 36.5 88 16 110/65 95 3.0 01/03/17 20:15 Nasal Cannula 3.0 01/03/17 20:13 99 16 93 Nasal Cannula 3.0 01/03/17 20:05 36.5 88 18 102/63 95 01/03/17 18:50 36.5 89 16 118/65 94 3.0 01/03/17 18:20 36.6 90 16 136/66 94 3.0 01/03/17 17:50 36.6 95 18 118/67 95 3.0 01/03/17 17:35 36.9 111 16 126/72 94 3.0 Lab Results: Results Past 24 Hours Test 01/04/17 07:36 Range/Units White Blood Count 11.63 4.8-10.8 K/uL Red Blood Count 3.73 4.2-5.4 M/uL Hemoglobin 10.5 12.0-16.0 g/dL Hematocrit 31.4 37-47 % Mean Corpuscular Volume 84.2 80-100 fL Mean Corpuscular Hemoglobin 28.2 25-34 pg Mean Corpuscular Hemoglobin Concent 33.4 32-36 g/dl Platelet Count 350 130-400 K/uL Mean Platelet Volume 8.2 7.4-10.4 fL Neutrophils (%) (Auto) 67.1 % Lymphocytes (%) (Auto) 12.8 % Monocytes (%) (Auto) 6.9 % Eosinophils (%) (Auto) 12.6 % Basophils (%) (Auto) 0.3 % Neutrophils # (Auto) 7.81 1.4-6.5 K/uL Lymphocytes # (Auto) 1.49 1.2-3.4 K/uL Monocytes # (Auto) 0.80 0.11-0.59 K/uL Eosinophils # (Auto) 1.47 0-0.5 K/uL Basophils # (Auto) 0.03 0-0.2 K/uL RDW Standard Deviation 49.3 36.4-46.3 fL RDW Coefficient of Variation 16.0 11.5-14.5 % Immature Granulocyte % (Auto) 0.3 % Immature Granulocyte # (Auto) 0.03 0.00-0.02 K/uL Sodium Level 131 136-145 mmol/L Potassium Level 3.2 3.5-5.1 mmol/L Chloride Level 92 98-107 mmol/L Carbon Dioxide Level 28 21-32 mmol/L Anion Gap 11.0 3-11 mmol/L Blood Urea Nitrogen 19 7-18 mg/dl Creatinine 0.77 0.60-1.20 mg/dl Est Creatinine Clear Calc Drug Dose 64.3 ml/min Estimated GFR () 90.7 Estimated GFR (Non- 78.2 BUN/Creatinine Ratio 25.2 10-20 Random Glucose 97 70-99 mg/dl Calcium Level 9.5 8.5-10.1 mg/dl Magnesium Level 1.6 1.8-2.4 mg/dl
[2017-01-04] MEDS: SENNA 8.6 MG TAB PO SCH (20:47)
[2017-01-04] MEDS: GABAPENTIN 300 MG CAP PO SCH (20:47)
[2017-01-04] MEDS: NORTRIPTYLINE HCL 25 MG CAP PO SCH (20:47)
[2017-01-04] MEDS: LATANOPROST 0.005% OP SOLN 2.5 ML BTL OP SCH (20:48)
[2017-01-05] VITALS (9 sets, daily range): BP systolic 117–128; BP diastolic 72–73; PULSE 80–121; TEMP 36.2–36.8; O2SAT 90–96
[2017-01-05] MEDS: TRAMADOL HCL 50 MG TAB PO PRN ×2 (04:52→15:05)
[2017-01-05] MEDS: ALBUT/IPRATROP 3MG/0.5MG NEB 3 ML VIAL INH SCH ×4 (07:03→19:13)
[2017-01-05] MEDS: FERROUS SULFATE 325 MG TAB PO SCH ×2 (07:54→21:39)
[2017-01-05] MEDS: DILTIAZEM HCL 180 MG CAPCR PO SCH (07:54)
[2017-01-05] MEDS: FAMOTIDINE 20 MG TAB PO SCH (07:54)
[2017-01-05] MEDS: MAGNESIUM OXIDE 400 MG TAB PO SCH ×2 (07:55→21:38)
[2017-01-05] MEDS: CEROVITE ADV FORMULA TAB PO SCH (07:55)
[2017-01-05] MEDS: DOCUSATE SODIUM 100 MG CAP PO SCH ×2 (07:55→21:38)
[2017-01-05] MEDS: GABAPENTIN 100 MG CAP PO SCH ×2 (07:55→12:37)
[2017-01-05] MEDS: LIDODERM (LIDOCAINE) PATCH 5% TD SCH (08:01)
[2017-01-05] MEDS: CLOTRIMAZOLE/BETAMETHASONE CR 15 GM TUBE EXT SCH ×2 (08:02→21:36)
[2017-01-05] MEDS: FUROSEMIDE INJ 20 MG in SYRINGE 0 ML IV SCH (08:25)
[2017-01-05 08:29] LABS: INR 2.1 (0.9-1.1); PROTHROMBIN TIME (PATIENT) 23.5 SECONDS (9.0-12.0)
[2017-01-05 08:49] LABS: BUN/CREATININE RATIO 22.1 (10-20); CALCIUM 9.5 mg/dl (8.5-10.1); CREATININE 0.82 mg/dl (0.60-1.20); MAGNESIUM 1.4 mg/dl (1.8-2.4); POTASSIUM 3.8 mmol/L (3.5-5.1)
[2017-01-05] MEDS: HYDROmorphone HCL 2 MG TAB PO PRN ×3 (10:40→21:37)
[2017-01-05] MEDS: DAPTOmycin IV 400 MG in SYRINGE 0 ML IV SCH (12:37)
[2017-01-05] MEDS: BISACODYL 5 MG TABEC PO PRN ×2 (12:41→21:48)
[2017-01-05] MEDS: WARFARIN SOD 4 MG TAB PO SCH (14:56)
[2017-01-05] MEDS: MAGNESIUM SULFATE 1GM / D5W 1 GM in PREMIXED IN D5W 100 ML IV SCH ×2 (14:56→16:07)
--- NOTE | 2017-01-05 17:58 | Progress Note ---
Internal Med Progress Note Date of Service: Jan 05, 2017. Provider Documentation: SUBJECTIVE: resting comfortably on the chair says sob on and off ambulating little no other complaints OBJECTIVE: Vital Signs-as noted below Exam: General-alert and oriented. Not in distress ENT-normal hearing Neck-no neck masses Lungs- cta b/l no wheezing or crackles Heart-s1 and s2 heard regular rate and rhythm no murmurs Abdomen-soft bowel sounds present no tenderness present no distension Extremities-lower extremity edema present more on left lower extremity no erythema Neuro-alert and oriented moves extremities Lab data as noted below. ASSESSMENT & PLAN: This 71-year-old female presents with shortness of breath and found to have pneumonia. Pneumonia, community versus hospital acquired pneumonia. The patient has a history of MSSA in the blood cultures and wound cultures and she had two 6 weeks of antibiotics currently on daptomycin, supposed to get done on 2016. She received IV Levaquin in the ER which continued as 750 mg IV q24 hours . cx no growth so far improving to continue Levaquin total of 10days#9. repeat cxr103/05/16 stable appearance ID and Pulmonary on board and appreciate inputs. stable plan for placement. Left hip septic arthritis, initially finished 6 weeks of IV ceftriaxone and IV vancomycin and got reinfected and again status post I&D and currently on IV daptomycin, which she is supposed to get done by 01/04/2017. Plan for left hip surgery in [place] on 01/18 Antibiotics as per ID. To continue iv daptomycin until surgery on 01/18 stable Stable conditions: History of atrial fibrillation, on diltiazem 180 mg daily and Coumadin. INR 2.1 cardiology consulted-appreciate inputs. Ultrasound Lower extremity 12/31/16 Trace chronic appearing thrombus is questioned within the left common femoral vein. on Coumadin acute on chronic diastolic chf? lower extremity edema iv Lasix daily will monitor Chronic anemia with a hemoglobin baseline around 8-9. Hgb between 7 to 8 during this admission. s/p transfused three units prbc. hb 10.5 today consulted heme/onco for chronic anemia and appreciate inputs Hypertension controlled on diltiazem 180 mg daily electrolyte deficiencies: replace. f/u labs. history of CKD but renal labs on this admission has been showing estimated GFR above 75 and generally stable renal function Deep venous thrombosis prophylaxis on Coumadin. DISPOSITION pt/ot social service for d/c planning await placement to facility that accepts iv daptomycin Vital Signs: Date Time Temp Pulse Resp B/P (MAP) Pulse Ox O2 Delivery O2 Flow Rate FiO2 01/05/17 16:27 Nasal Cannula 3.0 01/05/17 15:32 36.8 97 22 124/72 (89) 93 Nasal Cannula 3.0 01/05/17 15:29 85 18 96 Nasal Cannula 2.0 01/05/17 12:30 Nasal Cannula 3.0 01/05/17 11:32 36.2 100 20 117/73 (88) 92 Nasal Cannula 3.0 01/05/17 11:19 88 18 91 Nasal Cannula 2.0 01/05/17 08:15 Nasal Cannula 3.0 01/05/17 07:53 36.4 109 20 128/73 (91) 90 Nasal Cannula 2.0 01/05/17 07:03 119 18 92 Nasal Cannula 2.0 01/05/17 04:08 36.8 121 16 120/73 (89) 91 Nasal Cannula 2.0 01/05/17 04:00 Nasal Cannula 2.0 01/05/17 00:00 Nasal Cannula 2.0 01/04/17 22:53 36.8 109 17 149/78 (101) 91 Nasal Cannula 2.0 01/04/17 20:00 Nasal Cannula 2.0 01/04/17 19:50 36.6 108 17 112/68 (83) 94 Nasal Cannula 2.0 01/04/17 19:34 94 18 95 Nasal Cannula 2.0 Lab Results: Results Past 24 Hours Test 01/05/17 08:07 Range/Units Prothrombin Time 23.5 9.0-12.0 SECONDS Prothromb Time International Ratio 2.1 0.9-1.1 Sodium Level 132 136-145 mmol/L Potassium Level 3.8 3.5-5.1 mmol/L Chloride Level 94 98-107 mmol/L Carbon Dioxide Level 30 21-32 mmol/L Anion Gap 8.0 3-11 mmol/L Blood Urea Nitrogen 18 7-18 mg/dl Creatinine 0.82 0.60-1.20 mg/dl Est Creatinine Clear Calc Drug Dose 60.7 ml/min Estimated GFR () 84.0 Estimated GFR (Non- 72.5 BUN/Creatinine Ratio 22.1 10-20 Random Glucose 94 70-99 mg/dl Calcium Level 9.5 8.5-10.1 mg/dl Magnesium Level 1.4 1.8-2.4 mg/dl
[2017-01-05] MEDS ORDERED: MAGNESIUM OXIDE 400 MG TAB PO SCH (21:00)
[2017-01-05] MEDS: LATANOPROST 0.005% OP SOLN 2.5 ML BTL OP SCH (21:36)
[2017-01-05] MEDS: GABAPENTIN 300 MG CAP PO SCH (21:37)
[2017-01-05] MEDS: SENNA 8.6 MG TAB PO SCH (21:39)
[2017-01-05] MEDS: NORTRIPTYLINE HCL 25 MG CAP PO SCH (21:40)
[2017-01-06] VITALS (12 sets, daily range): BP systolic 108–126; BP diastolic 68–72; PULSE 99–110; TEMP 36.6–37; O2SAT 90–97
[2017-01-06] MEDS: HYDROmorphone HCL 2 MG TAB PO PRN ×4 (05:07→21:14)
[2017-01-06 06:41] LABS: INR 2.3 (0.9-1.1); PROTHROMBIN TIME (PATIENT) 25.9 SECONDS (9.0-12.0)
[2017-01-06] MEDS: ALBUT/IPRATROP 3MG/0.5MG NEB 3 ML VIAL INH SCH ×4 (07:16→19:00)
[2017-01-06] MEDS: CLOTRIMAZOLE/BETAMETHASONE CR 15 GM TUBE EXT SCH ×2 (08:42→21:03)
[2017-01-06] MEDS: LIDODERM (LIDOCAINE) PATCH 5% TD SCH (08:45)
[2017-01-06] MEDS: FUROSEMIDE INJ 20 MG in SYRINGE 0 ML IV SCH (08:47)
[2017-01-06] MEDS: GABAPENTIN 100 MG CAP PO SCH ×2 (08:50→14:06)
[2017-01-06] MEDS: DILTIAZEM HCL 180 MG CAPCR PO SCH (08:50)
[2017-01-06] MEDS: DOCUSATE SODIUM 100 MG CAP PO SCH ×2 (08:50→21:07)
[2017-01-06] MEDS: FERROUS SULFATE 325 MG TAB PO SCH ×2 (08:50→21:06)
[2017-01-06] MEDS: FAMOTIDINE 20 MG TAB PO SCH (08:51)
[2017-01-06] MEDS: CEROVITE ADV FORMULA TAB PO SCH (08:51)
[2017-01-06] MEDS: MAGNESIUM OXIDE 400 MG TAB PO SCH ×2 (08:51→21:06)
[2017-01-06] MEDS: DAPTOmycin IV 400 MG in SYRINGE 0 ML IV SCH (12:30)
[2017-01-06] MEDS: TRAMADOL HCL 50 MG TAB PO PRN (12:37)
[2017-01-06] MEDS: WARFARIN SOD 4 MG TAB PO SCH (17:03)
--- NOTE | 2017-01-06 17:51 | Progress Note ---
Internal Med Progress Note Date of Service: Jan 06, 2017. Provider Documentation: SUBJECTIVE: resting comfortably on the chair sob is same ambulating makes her sob has cough with sputum afebrile eating ok moved bowels today OBJECTIVE: Vital Signs-as noted below Exam: General-alert and oriented. Not in distress ENT-normal hearing Neck-no neck masses Lungs- cta b/l no wheezing or crackles Heart-s1 and s2 heard regular rate and rhythm no murmurs Abdomen-soft bowel sounds present no tenderness present no distension Extremities-lower extremity edema present more on left lower extremity no erythema Neuro-alert and oriented moves extremities Lab data as noted below. ASSESSMENT & PLAN: This 71-year-old female presents with shortness of breath and found to have pneumonia.Patient has hx o left hip septic arthritis and bacteremia with MSSA. Completed 6 week course with Rocephin and vancomycin. Again got infected with MSSA and currently on second course with iv daptomycin as she did not tolerated Rocephin and vanco earlier. Transferred from rehab because of sob and found to have upper lobes pneumonia. Completed course with Levaquin. Seen by pulmonary. Initially Iv daptomycin for septic arthritis last dose supposed to be on and left hip arthroplasty immediately at [place] but since developed pneumonia surgery postponed to 01/18/17. Needs to be on iv daptomycin until surgery. Awaiting placement to facility which approves iv daptomycin. Pneumonia, community versus hospital acquired pneumonia. The patient has a history of MSSA in the blood cultures and wound cultures and she had two 6 weeks of antibiotics currently on daptomycin, supposed to get done on 2016. She received IV Levaquin in the ER which continued as 750 mg IV q24 hours . cx no growth so far improving completed 8 day course of Levaquin . repeat cxr103/05/16 stable appearance ID and Pulmonary on board and appreciate inputs. still has cough with sputum- will f/u repeat cxr in am 01/07/17 plan for placement. Left hip septic arthritis, initially finished 6 weeks of IV ceftriaxone and IV vancomycin and got reinfected and again status post I&D and currently on IV daptomycin, which she is supposed to get done by 01/04/2017. Plan for left hip surgery in [place] on 01/18 Antibiotics as per ID. To continue iv daptomycin until surgery on 11/24 as per ID stable History of atrial fibrillation, on diltiazem 180 mg daily and Coumadin. INR 2.3 cardiology consulted-appreciate inputs. Ultrasound Lower extremity 12/31/16 Trace chronic appearing thrombus is questioned within the left common femoral vein. on Coumadin acute on chronic diastolic chf? lower extremity edema iv Lasix 20mg daily f/u labs will monitor Chronic anemia with a hemoglobin baseline around 8-9. Hgb between 7 to 8 during this admission. s/p transfused three units prbc. hb 10.5 . f/u labs consulted heme/onco for chronic anemia and appreciate inputs Hypertension controlled on diltiazem 180 mg daily electrolyte deficiencies: replace. f/u labs. history of CKD but renal labs on this admission has been showing estimated GFR above 75 and generally stable renal function Deep venous thrombosis prophylaxis on Coumadin. DISPOSITION pt/ot social service for d/c planning await placement to facility that accepts iv daptomycin Vital Signs: Date Time Temp Pulse Resp B/P (MAP) Pulse Ox O2 Delivery O2 Flow Rate FiO2 01/06/17 19:01 106 14 93 Nasal Cannula 3.0 01/06/17 16:00 94 Nasal Cannula 3.0 01/06/17 15:07 100 14 96 Nasal Cannula 3.0 01/06/17 15:04 36.8 99 22 119/72 (88) 93 Nasal Cannula 3.0 01/06/17 12:00 36.7 108 20 108/70 (83) 96 Nasal Cannula 3.0 01/06/17 12:00 90 Nasal Cannula 3.0 01/06/17 11:16 102 14 95 Nasal Cannula 3.0 01/06/17 08:00 90 Nasal Cannula 3.0 01/06/17 07:50 36.6 105 20 115/68 (84) 90 Nasal Cannula 3.0 01/06/17 07:16 103 18 97 Nasal Cannula 3.0 01/06/17 04:00 Nasal Cannula 3.0 01/06/17 03:52 37.0 102 20 123/71 (88) 92 Nasal Cannula 2.0 Humidified Oxygen 01/06/17 00:00 Nasal Cannula 3.0 01/06/17 00:00 36.7 102 20 126/72 (90) 93 Nasal Cannula 3.0 01/05/17 20:17 36.6 103 20 117/72 (87) 94 Nasal Cannula 3.0 01/05/17 20:00 Nasal Cannula 3.0 Lab Results: Results Past 24 Hours Test 01/06/17 05:38 Range/Units Prothrombin Time 25.9 9.0-12.0 SECONDS Prothromb Time International Ratio 2.3 0.9-1.1
[2017-01-06] MEDS ORDERED: BENZONATATE 100MG CAP PO PRN (20:30)
[2017-01-06] MEDS: LATANOPROST 0.005% OP SOLN 2.5 ML BTL OP SCH (21:03)
[2017-01-06] MEDS: GABAPENTIN 300 MG CAP PO SCH (21:06)
[2017-01-06] MEDS: SENNA 8.6 MG TAB PO SCH (21:07)
[2017-01-06] MEDS: NORTRIPTYLINE HCL 25 MG CAP PO SCH (21:07)
[2017-01-07] VITALS (15 sets, daily range): BP systolic 117–143; BP diastolic 64–87; PULSE 92–121; TEMP 36.6–37.1; O2SAT 92–96
[2017-01-07 06:00] LABS: BASO % 0.4 %; BASO ABS # 0.04 K/uL (0-0.2); COMPLETE YES; EOS % 12.2 %; HEMATOCRIT 31.3 % (37-47); IG% 0.4 %; LYMPH % 15.4 %; LYMPH ABS # 1.46 K/uL (1.2-3.4); MEAN CELL VOLUME 84.8 fL (80-100); MEAN CORPUSCULAR HEMOGLOBIN 27.1 pg (25-34); MEAN CORPUSCULAR HGB CONC 31.9 g/dl (32-36); MONO % 9.3 %; NEUT % 62.3 %; PLATELET COUNT 332 K/uL (130-400); RED BLOOD COUNT 3.69 M/uL (4.2-5.4)
[2017-01-07 06:26] LABS: CREATININE 0.85 mg/dl (0.60-1.20); INR 2.5 (0.9-1.1); MAGNESIUM 1.4 mg/dl (1.8-2.4); POTASSIUM 3.5 mmol/L (3.5-5.1); PROTHROMBIN TIME (PATIENT) 27.9 SECONDS (9.0-12.0)
[2017-01-07] MEDS: ALBUT/IPRATROP 3MG/0.5MG NEB 3 ML VIAL INH SCH ×4 (07:08→19:10)
--- NOTE | 2017-01-07 08:09 | DIAGNOSTIC IMAGING REPORT ---
CHEST ONE VIEW PORTABLE CLINICAL HISTORY: 71 years-old Female presenting with pneumonia . TECHNIQUE: Portable upright AP view of the chest was obtained. COMPARISON: 01/03/[address] from 12/27/2016.. FINDINGS: Left upper extremity PICC terminates in the lower SVC. Atherosclerosis of aortic arch. Cardiac silhouette normal in size. Persistent right upper lobe opacity. Left upper lobe opacity seen on CT from 12/27/2016 is not immediately apparent. Overall decrease in lung aeration with increased bandlike opacities at the lung bases. Minimal blunting of the right costophrenic angle. No pneumothorax. Degenerative changes of the bilateral glenohumeral joints and spine. Right Morgagni hernia again noted. IMPRESSION: 1. Overall worse in lung aeration with interval development of bibasilar atelectasis. 2. Stable appearance of the right upper lobe consolidation, consistent with pneumonia. Left upper lobe opacities better appreciated on most recent CT. 3. Possible trace right pleural effusion. Electronically signed by: Zaki Rubio M.D. 01/07/2017 8:07 AM Dictated Date/Time: 01/07/2017 8:04 AM
[2017-01-07] MEDS: FAMOTIDINE 20 MG TAB PO SCH (08:56)
[2017-01-07] MEDS: DOCUSATE SODIUM 100 MG CAP PO SCH ×2 (08:56→21:43)
[2017-01-07] MEDS: GABAPENTIN 100 MG CAP PO SCH ×2 (08:57→13:07)
[2017-01-07] MEDS: FERROUS SULFATE 325 MG TAB PO SCH ×2 (08:57→21:44)
[2017-01-07] MEDS: MAGNESIUM OXIDE 400 MG TAB PO SCH ×2 (08:57→21:44)
[2017-01-07] MEDS: DILTIAZEM HCL 180 MG CAPCR PO SCH (08:57)
[2017-01-07] MEDS: CEROVITE ADV FORMULA TAB PO SCH (08:57)
[2017-01-07] MEDS: FUROSEMIDE INJ 20 MG in SYRINGE 0 ML IV SCH (08:58)
[2017-01-07] MEDS: CLOTRIMAZOLE/BETAMETHASONE CR 15 GM TUBE EXT SCH ×2 (08:58→21:47)
[2017-01-07] MEDS: LIDODERM (LIDOCAINE) PATCH 5% TD SCH (08:58)
[2017-01-07] MEDS: HYDROmorphone HCL 2 MG TAB PO PRN ×2 (09:08→15:55)
[2017-01-07] MEDS: DAPTOmycin IV 400 MG in SYRINGE 0 ML IV SCH (12:54)
[2017-01-07] MEDS: TRAMADOL HCL 50 MG TAB PO PRN ×2 (13:00→21:43)
[2017-01-07] MEDS: WARFARIN SOD 2 MG TAB PO SCH (15:56)
--- NOTE | 2017-01-07 19:19 | Progress Note ---
Internal Med Progress Note Date of Service: Jan 07, 2017. Provider Documentation: SUBJECTIVE: on 2 L 02 feel frustrated with ongoing illness and set backs still having significant ANNA mobility is restricted due to hypoxia cough and wheezing improved no fever or chills OBJECTIVE: Vital Signs-as noted below Exam: General-no sign of distress Eyes-sclera non icteric , PERRLA/EOMI ENT-normal exam Neck-no thyromegaly , trachea midline Lungs-wheeze with expiration Heart-regular S1/S2 Abdomen-soft, non tender , bowel sound active Extremities-no lower ext edema Neuro-AAO X3 , no focal deficit Lab data as noted below. ASSESSMENT & PLAN: Pneumonia, community versus hospital acquired pneumonia. The patient has a history of MSSA in the blood cultures and wound cultures and she had two 6 weeks of antibiotics currently on daptomycin, supposed to get done on 01/04/2017. She received IV Levaquin in the ER which continued as 750 mg IV q24 hours . cx no growth so far completed 8 day course of Levaquin . repeat cxr103/05/16 stable appearance ID and Pulmonary on board and appreciate inputs. Left hip septic arthritis initially finished 6 weeks of IV ceftriaxone and IV vancomycin and got reinfected and again status post I&D currently on IV daptomycin, Plan for left hip surgery in [place] on 01/18 Per ID recommend to continue iv daptomycin until surgery on 01/18 History of atrial fibrillation on diltiazem 180 mg daily and Coumadin. follow daily INR cardiology consulted-appreciate inputs. LOWER EXT DVT Ultrasound Lower extremity 12/31/16 Trace chronic appearing thrombus is questioned within the left common femoral vein. on Coumadin acute on chronic diastolic chf lower extremity edema iv Lasix 20mg daily will change to PO vol status stable Chronic anemia with a hemoglobin baseline around 8-9. Hgb between 7 to 8 during this admission. s/p transfused three units prbc. hb 10.5 . f/u labs consulted heme/onco for chronic anemia and appreciate inputs Hypertension controlled on diltiazem 180 mg daily Deep venous thrombosis prophylaxis on Coumadin. DISPOSITION pt/ot social service for d/c planning awaiting SNF placement Vital Signs: Date Time Temp Pulse Resp B/P (MAP) Pulse Ox O2 Delivery O2 Flow Rate FiO2 01/07/17 19:56 36.7 108 20 138/72 (94) 96 2.0 01/07/17 19:10 103 14 92 Nasal Cannula 2.0 01/07/17 16:00 92 Nasal Cannula 2.0 01/07/17 15:24 36.8 98 18 137/87 (104) 92 Nasal Cannula 1.0 01/07/17 15:20 98 14 92 Nasal Cannula 2.0 01/07/17 12:00 94 Nasal Cannula 3.0 01/07/17 11:10 105 14 95 Nasal Cannula 3.0 01/07/17 11:08 36.7 105 18 143/80 (101) 94 Nasal Cannula 2.0 01/07/17 08:00 94 Nasal Cannula 3.0 01/07/17 07:34 36.6 92 18 118/72 (87) 92 01/07/17 07:11 95 16 94 Nasal Cannula 3.0 01/07/17 04:34 37.1 94 18 117/71 (86) 94 Nasal Cannula 3.0 01/07/17 04:00 Nasal Cannula 3.0 01/07/17 00:03 36.9 121 18 121/64 (83) 93 Nasal Cannula 3.0 01/07/17 00:00 Nasal Cannula 3.0 Lab Results: Results Past 24 Hours Test 01/07/17 05:43 Range/Units White Blood Count 9.50 4.8-10.8 K/uL Red Blood Count 3.69 4.2-5.4 M/uL Hemoglobin 10.0 12.0-16.0 g/dL Hematocrit 31.3 37-47 % Mean Corpuscular Volume 84.8 80-100 fL Mean Corpuscular Hemoglobin 27.1 25-34 pg Mean Corpuscular Hemoglobin Concent 31.9 32-36 g/dl Platelet Count 332 130-400 K/uL Mean Platelet Volume 8.0 7.4-10.4 fL Neutrophils (%) (Auto) 62.3 % Lymphocytes (%) (Auto) 15.4 % Monocytes (%) (Auto) 9.3 % Eosinophils (%) (Auto) 12.2 % Basophils (%) (Auto) 0.4 % Neutrophils # (Auto) 5.92 1.4-6.5 K/uL Lymphocytes # (Auto) 1.46 1.2-3.4 K/uL Monocytes # (Auto) 0.88 0.11-0.59 K/uL Eosinophils # (Auto) 1.16 0-0.5 K/uL Basophils # (Auto) 0.04 0-0.2 K/uL RDW Standard Deviation 50.3 36.4-46.3 fL RDW Coefficient of Variation 16.2 11.5-14.5 % Immature Granulocyte % (Auto) 0.4 % Immature Granulocyte # (Auto) 0.04 0.00-0.02 K/uL Prothrombin Time 27.9 9.0-12.0 SECONDS Prothromb Time International Ratio 2.5 0.9-1.1 Sodium Level 132 136-145 mmol/L Potassium Level 3.5 3.5-5.1 mmol/L Chloride Level 94 98-107 mmol/L Carbon Dioxide Level 30 21-32 mmol/L Anion Gap 8.0 3-11 mmol/L Blood Urea Nitrogen 20 7-18 mg/dl Creatinine 0.85 0.60-1.20 mg/dl Est Creatinine Clear Calc Drug Dose 57.6 ml/min Estimated GFR () 80.5 Estimated GFR (Non- 69.4 BUN/Creatinine Ratio 24.0 10-20 Random Glucose 92 70-99 mg/dl Calcium Level 9.0 8.5-10.1 mg/dl Magnesium Level 1.4 1.8-2.4 mg/dl
[2017-01-07] MEDS ORDERED: MAGNESIUM OXIDE 400 MG TAB PO SCH (21:00)
[2017-01-07] MEDS: SENNA 8.6 MG TAB PO SCH (21:45)
[2017-01-07] MEDS: GABAPENTIN 300 MG CAP PO SCH (21:45)
[2017-01-07] MEDS: NORTRIPTYLINE HCL 25 MG CAP PO SCH (21:46)
[2017-01-07] MEDS: LATANOPROST 0.005% OP SOLN 2.5 ML BTL OP SCH (21:46)
[2017-01-08] VITALS (9 sets, daily range): BP systolic 113–133; BP diastolic 70–75; PULSE 89–108; TEMP 36.4–36.9; O2SAT 86–97
[2017-01-08] MEDS: HYDROmorphone HCL 2 MG TAB PO PRN ×3 (02:14→15:35)
[2017-01-08] MEDS: ALBUT/IPRATROP 3MG/0.5MG NEB 3 ML VIAL INH SCH ×2 (06:57→15:32)
[2017-01-08 07:01] LABS: BASO % 0.3 %; BASO ABS # 0.03 K/uL (0-0.2); COMPLETE YES; EOS % 11.9 %; IG% 0.6 %; LYMPH % 15.4 %; MEAN CELL VOLUME 85.7 fL (80-100); MEAN CORPUSCULAR HEMOGLOBIN 27.8 pg (25-34); MEAN CORPUSCULAR HGB CONC 32.4 g/dl (32-36); MEAN PLATELET VOLUME 8.2 fL (7.4-10.4); MONO % 7.2 %; NEUT % 64.6 %; PLATELET COUNT 344 K/uL (130-400); RED BLOOD COUNT 3.85 M/uL (4.2-5.4); WHITE BLOOD COUNT 10.36 K/uL (4.8-10.8)
[2017-01-08 07:17] LABS: INR 2.4 (0.9-1.1)
[2017-01-08 07:32] LABS: CALCIUM 9.3 mg/dl (8.5-10.1); CREATININE 0.81 mg/dl (0.60-1.20); MAGNESIUM 1.5 mg/dl (1.8-2.4); POTASSIUM 3.6 mmol/L (3.5-5.1)
[2017-01-08] MEDS: GABAPENTIN 100 MG CAP PO SCH ×2 (08:52→13:50)
[2017-01-08] MEDS: DOCUSATE SODIUM 100 MG CAP PO SCH (08:52)
[2017-01-08] MEDS: CEROVITE ADV FORMULA TAB PO SCH (08:53)
[2017-01-08] MEDS: MAGNESIUM OXIDE 400 MG TAB PO SCH (08:55)
[2017-01-08] MEDS: FAMOTIDINE 20 MG TAB PO SCH (08:56)
[2017-01-08] MEDS: DILTIAZEM HCL 180 MG CAPCR PO SCH (08:57)
[2017-01-08] MEDS: LIDODERM (LIDOCAINE) PATCH 5% TD SCH (08:58)
[2017-01-08] MEDS: CLOTRIMAZOLE/BETAMETHASONE CR 15 GM TUBE EXT SCH (08:59)
[2017-01-08] MEDS ORDERED: FUROSEMIDE 20 MG TAB PO SCH (09:00)
[2017-01-08] MEDS: FERROUS SULFATE 325 MG TAB PO SCH (10:17)
[2017-01-08] MEDS: DAPTOmycin IV 400 MG in SYRINGE 0 ML IV SCH (11:40)
[2017-01-08] MEDS: TRAMADOL HCL 50 MG TAB PO PRN (13:55)
[2017-01-08] MEDS ORDERED: HYDR4TAB2 PO (14:41)
[2017-01-08] MEDS ORDERED: CRDCD180 PO (14:41)
[2017-01-08] MEDS ORDERED: LSX20 PO (14:41)
[2017-01-08] MEDS ORDERED: DAPTOMYCIN IV (14:41)
[2017-01-08] MEDS ORDERED: ATV5 PO (14:41)
[2017-01-08] MEDS ORDERED: MGNO400 PO (14:41)
[2017-01-08] MEDS ORDERED: TRAM-10 PO (14:41)
--- NOTE | 2017-01-08 14:42 | Discharge Instructions ---
Discharge Instructions Date of Service Jan 08, 2017. Admission Reason for Admission: Pna, Sob Discharge Discharge Diagnosis / Problem: PNEUMONIA /LEFT HIP SEPTIC ARTHRITIS Discharge Goals Goal(s): Increase independence, Improve disease control, Diagnostic testing, Therapeutic intervention Activity Recommendations Activity Level: Assistance Required Therapies: Physical Therapy, Occupational Therapy . Additional Information Patient informed of condition: Yes Advance Directives: No DNR: No Level of Care: Skilled Communicable Disease: No Prognosis: Stable Talbert Catheter: No Instructions / Follow-Up Instructions / Follow-Up FOLLOW UP WITH ORTHOPEDICS IN [place] FOR LEFT HIP REPLACEMENT SURGERY Current Hospital Diet Patient's current hospital diet: AHA Diet (Heart Healthy) Discharge Diet Recommended Diet: AHA Diet (Heart Healthy) Pending Studies Studies pending at discharge: no Medical Emergencies . Who to Call and When: Medical Emergencies: If at any time you feel your situation is an emergency, please call 911 immediately. . Non-Emergent Contact Non-Emergency issues call your: Primary Care Provider . . "Provider Documentation" section prepared by Maria T Wright. . Core Measure Problem Core Measures: None
[2017-01-08] MEDS ORDERED: IPRASOL4 INH (15:01)
--- NOTE | 2017-01-08 15:12 | Progress Note ---
Internal Med Progress Note Date of Service: Jan 08, 2017. Provider Documentation: SUBJECTIVE: feels the same , thinks breathing has improved a bit no cough able to ambulate in room with minimum SOB accepted at [facility] with IV Daptomycin stable to be discharged to [facility] today OBJECTIVE: Vital Signs-as noted below Exam: General-no sign of distress Eyes-sclera non icteric , PERRLA/EOMI ENT-normal exam Neck-no thyromegaly , trachea midline Lungs-wheeze with expiration Heart-regular S1/S2 Abdomen-soft, non tender , bowel sound active Extremities-no lower ext edema Neuro-AAO X3 , no focal deficit Lab data as noted below. ASSESSMENT & PLAN: Pneumonia, community versus hospital acquired pneumonia. The patient has a history of MSSA in the blood cultures and wound cultures and she had two 6 weeks of antibiotics currently on daptomycin, supposed to get done on 01/04/2017. She received IV Levaquin in the ER which continued as 750 mg IV q24 hours . cx no growth so far completed 8 day course of Levaquin . repeat cxr103/05/16 stable appearance ID and Pulmonary on board and appreciate inputs. respiratory status remains stable transfer to SNF today Left hip septic arthritis initially finished 6 weeks of IV ceftriaxone and IV vancomycin and got reinfected and again status post I&D currently on IV daptomycin, Plan for left hip surgery in [place] on 01/18 Per ID recommend pt will continue iv daptomycin until surgery on 01/18 History of atrial fibrillation on diltiazem 180 mg daily and Coumadin. follow daily INR cardiology consulted-appreciate inputs. LOWER EXT DVT Ultrasound Lower extremity 12/31/16 Trace chronic appearing thrombus is questioned within the left common femoral vein. on Coumadin acute on chronic diastolic chf compensated cont Lasix 20 mg daily vol status stable Chronic anemia with a hemoglobin baseline around 8-9. Hgb between 7 to 8 during this admission. s/p transfused three units prbc. hb 10.5 . 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 DISPOSITION transfer to [facility] today Vital Signs: Date Time Temp Pulse Resp B/P (MAP) Pulse Ox O2 Delivery O2 Flow Rate FiO2 01/08/17 14:22 36.9 95 18 113/71 (85) 93 2.0 01/08/17 12:00 97 Nasal Cannula 3.0 01/08/17 11:33 36.6 108 18 133/70 (91) 97 Nasal Cannula 3.0 01/08/17 10:05 93 Nasal Cannula 2.0 01/08/17 09:33 Nasal Cannula 2.0 01/08/17 07:26 36.4 89 19 130/73 (92) 93 Nasal Cannula 2.0 01/08/17 06:57 96 16 86 Nasal Cannula 2.0 01/08/17 04:00 36.6 95 20 131/75 (93) 93 2.0 01/08/17 04:00 Nasal Cannula 2.0 01/08/17 00:00 Nasal Cannula 2.0 01/07/17 23:47 36.6 102 17 118/69 (85) 92 Nasal Cannula 2.0 01/07/17 20:00 96 Nasal Cannula 2.0 01/07/17 19:56 36.7 108 20 138/72 (94) 96 2.0 01/07/17 19:10 103 14 92 Nasal Cannula 2.0 01/07/17 16:00 92 Nasal Cannula 2.0 01/07/17 15:24 36.8 98 18 137/87 (104) 92 Nasal Cannula 1.0 01/07/17 15:20 98 14 92 Nasal Cannula 2.0 Lab Results: Results Past 24 Hours Test 01/08/17 06:17 Range/Units White Blood Count 10.36 4.8-10.8 K/uL Red Blood Count 3.85 4.2-5.4 M/uL Hemoglobin 10.7 12.0-16.0 g/dL Hematocrit 33.0 37-47 % Mean Corpuscular Volume 85.7 80-100 fL Mean Corpuscular Hemoglobin 27.8 25-34 pg Mean Corpuscular Hemoglobin Concent 32.4 32-36 g/dl Platelet Count 344 130-400 K/uL Mean Platelet Volume 8.2 7.4-10.4 fL Neutrophils (%) (Auto) 64.6 % Lymphocytes (%) (Auto) 15.4 % Monocytes (%) (Auto) 7.2 % Eosinophils (%) (Auto) 11.9 % Basophils (%) (Auto) 0.3 % Neutrophils # (Auto) 6.69 1.4-6.5 K/uL Lymphocytes # (Auto) 1.60 1.2-3.4 K/uL Monocytes # (Auto) 0.75 0.11-0.59 K/uL Eosinophils # (Auto) 1.23 0-0.5 K/uL Basophils # (Auto) 0.03 0-0.2 K/uL RDW Standard Deviation 51.4 36.4-46.3 fL RDW Coefficient of Variation 16.2 11.5-14.5 % Immature Granulocyte % (Auto) 0.6 % Immature Granulocyte # (Auto) 0.06 0.00-0.02 K/uL Prothrombin Time 27.0 9.0-12.0 SECONDS Prothromb Time International Ratio 2.4 0.9-1.1 Sodium Level 132 136-145 mmol/L Potassium Level 3.6 3.5-5.1 mmol/L Chloride Level 93 98-107 mmol/L Carbon Dioxide Level 32 21-32 mmol/L Anion Gap 7.0 3-11 mmol/L Blood Urea Nitrogen 20 7-18 mg/dl Creatinine 0.81 0.60-1.20 mg/dl Est Creatinine Clear Calc Drug Dose 59.7 ml/min Estimated GFR () 85.3 Estimated GFR (Non- 73.6 BUN/Creatinine Ratio 24.0 10-20 Random Glucose 90 70-99 mg/dl Calcium Level 9.3 8.5-10.1 mg/dl Magnesium Level 1.5 1.8-2.4 mg/dl
--- NOTE | 2017-01-08 15:16 | Discharge Summary ---
Discharge Summary Date of Service Jan 08, 2017. Discharge Summary Admission Date: Dec 27, 2016 at 21:52 Discharge Date: Jan 08, 2017 Discharge Disposition: long term facility ([facility] ) Principal Diagnosis: PNEUMONIA /LEFT HIP SEPTIC ARTHRITIS Consultations: ORTHOPEDICS ID PULMONOLOGY CARDIOLOGY Medication Reconciliation New Medications: Diltiazem HCl (Diltiazem HCl ER) 180 Mg Capcr 180 MG PO DAILY for 30 Days, #30 TAB Furosemide (Furosemide) 20 Mg Tab 20 MG PO QAM for 30 Days, #30 TAB Ipratropium-Albuterol (Duoneb) 3 Ml Nebu 3 ML INH QIDR PRN for Wheezing for 30 Days Lorazepam (Lorazepam) 0.5 Mg Tab 0.5 MG PO TID PRN for Anxiety, #10 TAB Magnesium Oxide (Magnesium-Oxide) 400 Mg Tab 400 MG PO BID for 30 Days, #60 TAB Changed Medications: [Daptomycin] () 400 MG IV DAILY (Changed from: STOP 01/05/17) CONTINUE TILL 01/18/17 PRIOR TO SURGERY Continued Medications: Acetaminophen (Tylenol) 500 Mg Tab 500 MG PO Q4 PRN for Pain or Fever, TAB Bisacodyl (Dulcolax) 10 Mg Sup 10 MG AR DAILY PRN for Constipation, SUP Bisacodyl (Dulcolax) 5 Mg Tab 1 TAB PO PRN for Constipation for 1 Day, #2 TAB Clotrimazole W/ Betamethasone (Lotrisone) 1 Cre Cre 1 APPLN TOP AMPM for 5 Days, #15 GM Docusate Sodium (Docusate Sodium) 100 Mg Cap 1 CAP PO BID for 7 Days, #14 CAP Famotidine (Pepcid) 20 Mg Tab 20 MG PO QAM, TAB Ferrous Sulfate (Kp Ferrous Sulfate) 325 Mg Tab 325 MG PO BID, TAB Gabapentin (Neurontin) 300 Mg Cap 300 MG PO HS, CAP Gabapentin (Neurontin) 100 Mg Cap 200 MG PO BID, CAP morning and afternoon Hydromorphone Hcl (Dilaudid) 4 Mg Tab 4 MG PO Q3HRS PRN for Pain, #10 TAB (This prescription has been renewed) Hydroxyzine Hcl (Atarax) 25 Mg Tab 25 MG PO Q6H PRN for Dizziness or Vertigo, TAB Latanoprost (Xalatan 0.005% Oph Nanci) 0.005 % Nanci 1 DROPS OP HS for 90 Days, #7.5 ML 3 Refills Lidocaine (Lidoderm Patch 5%) 1 Ea Tdsy 1 PATCH TOP DAILY REMOVE HS Magnesium Hydroxide (Milk Of Magnesia) 30 Ml Susp 30 ML PO DAILY PRN for Constipation, ML Multiple Vitamins W/ Minerals (Centrum Silver Adult 50+) 1 Tab Tab 1 TAB PO DAILY Nortriptyline (Pamelor) 25 Mg Cap 25 MG PO HS, CAP Ondasetron Odt (Zofran Odt) 4 Mg Tab 4 MG SL Q6H PRN for Nausea or Vomiting, #6 TAB Polyethylene Glycol 3350 (Miralax) 1 Pow Pow 17 GM PO DAILY PRN for Constipation, #255 GM Senna (Senokot) 8.6 Mg Tab 2 TAB PO HS, TAB Sodium Phosphate/Biphosphate (Fleet Enema) Atyler 1 EA AR DAILY PRN for Constipation, BTL Tramadol (Ultram) 50 Mg Tab 50 MG PO Q6 PRN for Pain, #10 TAB (This prescription has been renewed) Warfarin Sodium (Coumadin) 2 Mg Tab 4 MG PO UD, #30 TAB coumadin 4mg po daily except saturday coumadin 2mg po daily on saturday Discontinued Medications: Lorazepam (Ativan) 0.5 Mg Tab 0.5 MG PO ONCE PRN for Anxiety, TAB Admission Information HPI (per Admitting provider): DATE OF ADMISSION: 12/27/2016 CHIEF COMPLAINT: Shortness of breath. HISTORY OF PRESENT ILLNESS: This is a 71-year-old male with past medical history significant for hypertension, chronic anemia, baseline hemoglobin of 8, paroxysmal atrial fibrillation on Coumadin, hyperlipidemia, past tobacco use, chronic hyponatremia, history of septic arthritis left hip with MSSA, status post IV Rocephin which was later changed to vancomycin course and completed 6 weeks of course. After completion of antibiotics again she came back with fever and at that time she was found to have fracture of the left neck femur with volume loss and some joint effusion. She again had I&D done. The cultures again grew MSSA and she was started on another 6-week course of IV daptomycin, which she is supposed to get done by 2016, and once she has cleared up infection, there is a plan for hip replacement at a tertiary center. Patient is currently at a rehab, yesterday when she was doing PT she developed cough and she was getting more progressively short of breath and she was brought in here and she also has a mild temperature spike. She is having some difficulty speaking secondary to shortness of breath, saturating okay on 3 liters. Denies any headaches, no blurred vision, no dizziness, no chest pain, no nausea, no vomiting, no abdominal pain. Appetite not great today. Normal bowel and bladder movements. ALLERGIES: BRIMONIDINE, CEFTRIAXONE, CODEINE, DIPHENHYDRAMINE, LATEX, NICKEL, OXYCODONE, VANCOMYCIN. PAST MEDICAL HISTORY: As mentioned above. PAST SURGICAL HISTORY: Hernia repair, paraventricular nerve block, left hip I&Ds. SOCIAL HISTORY: Past tobacco with history of chronic alcoholic intake in the past. 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 FAMILY HISTORY: Significant for esophageal cancer. MEDICATIONS: Currently the patient is on Tylenol 500 mg p.o. q. 4 hours p.r.n., Dulcolax 10 mg per rectal daily p.r.n., bisacodyl 5 mg tablet p.o. p.r.n., Lotrisone cream, diltiazem CD 180 mg p.o. daily, Colace 100 mg p.o. b.i.d., famotine 20 mg p.o. a.m., ferrous sulfate 325 mg p.o. b.i.d., gabapentin 300 mg p.o. at bedtime, gabapentin 200 mg p.o. b.i.d., hydromorphone 4 mg p.o. q. 6 hours p.r.n., hydroxyzine 25 mg p.o. q. 6 hours p.r.n., latanoprost ophthalmic drops, Ativan 0.5 p.o. daily p.r.n., nortriptyline 25 mg p.o. at bedtime, multivitamin with minerals 1 tablet p.o. daily, tramadol 50 mg p.o. q. 6 hours p.r.n., Coumadin 4 mg p.o. daily except on Saturday and 2 mg on Saturday, daptomycin IV 400 mg daily. Physical Exam (per Admitting): REVIEW OF SYMPTOMS: As per HPI. Rest of review of symptoms is negative. PHYSICAL EXAMINATION: GENERAL: The patient is of moderate build, not in distress. VITAL SIGNS: Temperature 37.6, pulse 90, respiratory rate 20, blood pressure 133/68, oxygen 96% on 3 liters. HEENT: No pallor, no icterus. Pupils equal, round, reactive to light. NECK: No JVD, no neck masses, no carotid bruits. CARDIOVASCULAR: S1, S2 heard, regular rate and rhythm, no murmur, no gallop. RESPIRATORY SYSTEM: Normal AP diameter, somewhat labored breathing. No wheezing, no crackles heard. ABDOMEN: Soft, bowel sounds present. Nontender. No distention. CENTRAL NERVOUS SYSTEM: Cranial nerves II-XII grossly intact. Nonfocal. EXTREMITIES: No edema, no erythema. Left hip postsurgical site no erythema or drainage seen. Hospital Course Pneumonia, community versus hospital acquired pneumonia. The patient has a history of MSSA in the blood cultures and wound cultures and she had two 6 weeks of antibiotics currently on daptomycin, supposed to get done on 01/04/2017. She received IV Levaquin in the ER which continued as 750 mg IV q24 hours . cx no growth so far completed 8 day course of Levaquin . repeat cxr103/05/16 stable appearance ID and Pulmonary on board and appreciate inputs. respiratory status remains stable transfer to SNF today Left hip septic arthritis initially finished 6 weeks of IV ceftriaxone and IV vancomycin and got reinfected and again status post I&D currently on IV daptomycin, Plan for left hip surgery in [place] on 01/18 Per ID recommend pt will continue iv daptomycin until surgery on 01/18 History of atrial fibrillation on diltiazem 180 mg daily and Coumadin. follow daily INR cardiology consulted-appreciate inputs. LOWER EXT DVT Ultrasound Lower extremity 12/31/16 Trace chronic appearing thrombus is questioned within the left common femoral vein. on Coumadin acute on chronic diastolic chf compensated cont Lasix 20 mg daily vol status stable Chronic anemia with a hemoglobin baseline around 8-9. Hgb between 7 to 8 during this admission. s/p transfused three units prbc. hb 10.5 . 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 DISPOSITION transfer to [facility] today Total time spent on discharge = 40 mins This includes examination of the patient, discharge planning, medication reconciliation, and communication with other providers. Discharge Instructions Discharge Instructions Date of Service Jan 08, 2017. Admission Reason for Admission: Pna, Sob Discharge Discharge Diagnosis / Problem: PNEUMONIA /LEFT HIP SEPTIC ARTHRITIS Discharge Goals Goal(s): Increase independence, Improve disease control, Diagnostic testing, Therapeutic intervention Activity Recommendations Activity Level: Assistance Required Therapies: Physical Therapy, Occupational Therapy . Additional Information Patient informed of condition: Yes Advance Directives: No DNR: No Level of Care: Skilled Communicable Disease: No Prognosis: Stable Talbert Catheter: No Instructions / Follow-Up Instructions / Follow-Up FOLLOW UP WITH ORTHOPEDICS IN [place] FOR LEFT HIP REPLACEMENT SURGERY Current Hospital Diet Patient's current hospital diet: AHA Diet (Heart Healthy) Discharge Diet Recommended Diet: AHA Diet (Heart Healthy) Pending Studies Studies pending at discharge: no Medical Emergencies . Who to Call and When: Medical Emergencies: If at any time you feel your situation is an emergency, please call 911 immediately. . Non-Emergent Contact Non-Emergency issues call your: Primary Care Provider . . "Provider Documentation" section prepared by Maria T Wright. . Core Measure Problem Core Measures: None
[2017-01-08] MEDS: WARFARIN SOD 4 MG TAB PO SCH (15:26)
== END 2017-01-08 16:07 | DRG 193 ==
LOC: EDBD 17:36 → C.EDB 17:37 → C.MSICU 21:52 → EDBEDREQ 22:01 → ENRESERV 22:05 → C.MED 12-28 17:30
PROVIDERS: ADMIT Hospitalist; ATTEND Hospitalist
DX: J18.9 Pneumonia, unspecified organism (principal); I50.33 Acute on chronic diastolic (congestive) heart failure; M00.052 Staphylococcal arthritis, left hip; I13.0 Hypertensive heart and chronic kidney disease with heart failure and stage 1 through stage 4 chronic kidney disease, or unspecified chronic kidney disease; I82.512 Chronic embolism and thrombosis of left femoral vein; Z87.891 Personal history of nicotine dependence; Z79.01 Long term (current) use of anticoagulants; D64.9 Anemia, unspecified; I48.0 Paroxysmal atrial fibrillation; E78.5 Hyperlipidemia, unspecified; E83.42 Hypomagnesemia; N18.3 Chronic kidney disease, stage 3 (moderate); Z80.0 Family history of malignant neoplasm of digestive organs; Z79.2 Long term (current) use of antibiotics; Z96.642 Presence of left artificial hip joint; E87.6 Hypokalemia; M41.9 Scoliosis, unspecified; J43.9 Emphysema, unspecified

== ENCOUNTER → 2017-03-11 | Outpatient (CLI) | payer OTHER ==
[~2017-03-11] MED LIST changes: +ACET-1256 PO; -ACET325T96 PO; +ATV5 PO; +BISA-16 PO; -CALC1TAB56 PO; +CLOTCRE TOP; +CRDCD180 PO; -DILT-113 PO; +DOCU100C31 PO; +FAMO20TA11 PO; +FERR1TAB13 PO; +GABA-112 PO; +HYDR-3124 PO; -HYDR2TAB48 PO; +HYDR4TAB2 PO; +IPRASOL4 INH; +LATA0.009 OP; +LSX20 PO; +MGNO400 PO; +MOML PO; +MULT-845 PO; +NF656 TOP; +NORT25CA PO; +ONDA4TAB10 SL; +POLY335019 PO; +SENN-61 PO; -SENN-65 PO; -TRAV0.00 OPB; +WARF2TAB PO; -WARF2TAB8 PO; -WARF4TAB8 PO
[2017-03-11 12:13] LABS: INR 1.4 (0.9-1.1)
== END | disposition home or self-care (01) ==
LOC: C.LABSPEC 14:00
PROVIDERS: ATTEND Family Medicine
DX: Z79.01 Long term (current) use of anticoagulants (principal); Z51.81 Encounter for therapeutic drug level monitoring

== ENCOUNTER → 2017-03-18 | Outpatient (CLI) | payer OTHER ==
[2017-03-18 12:34] LABS: INR 1.7 (0.9-1.1)
== END | disposition home or self-care (01) ==
LOC: C.LABSPEC 15:56
PROVIDERS: ATTEND Family Medicine
DX: Z79.01 Long term (current) use of anticoagulants (principal)

== ENCOUNTER → 2017-03-25 | Outpatient (CLI) | payer OTHER ==
[2017-03-25 12:41] LABS: INR 1.5 (0.9-1.1)
== END | disposition home or self-care (01) ==
LOC: C.LABSPEC 15:47
PROVIDERS: ATTEND Family Medicine
DX: Z79.01 Long term (current) use of anticoagulants (principal); Z51.81 Encounter for therapeutic drug level monitoring

== ENCOUNTER 2018-03-29 13:42 | Observation (INO) ==
[2018-03-29] MEDS ORDERED: methylPREDNISolone 125 MG/2 ML VIAL IV STA (14:09)
[2018-03-29] MEDS ORDERED: ALBUT/IPRATROP 3MG/0.5MG NEB 3 ML VIAL INH STA (14:09)
[2018-03-29] MEDS ORDERED: SODIUM CHLORIDE 0.9% 1000ML 1,000 ML IV SCH (14:15)
[2018-03-29 14:16] LABS: Basophils # (auto) 0.03 K/uL (0-0.2); Basophils % (auto) 0.4 %; Eosinophils # (auto) 0.26 K/uL (0-0.5); Eosinophils % (auto) 3.8 %; Hematocrit (blood only) 40.6 % (37-47); Hemoglobin 13.4 g/dL (12.0-16.0); Immature Granulocytes # (auto) 0.02 K/uL (0.00-0.02); Immature Granulocytes % (auto) 0.3 %; Lymphocytes # (auto) 2.06 K/uL (1.2-3.4); Lymphocytes % (auto) 29.9 %; Mean Corpuscular Volume 97.6 fL (80-100); Mean Platelet Volume 10.7 fL (7.4-10.4); Monocytes # (auto) 0.46 K/uL (0.11-0.59); Monocytes % (auto) 6.7 %; Neutrophils # (auto) 4.05 K/uL (1.4-6.5); Neutrophils % (auto) 58.9 %; Platelet Count 230 K/uL (130-400); Red Blood Count 4.16 M/uL (4.2-5.4); White Blood Count 6.88 K/uL (4.8-10.8)
[2018-03-29 14:28] LABS: Alanine Aminotransferase 22 U/L (12-78); Albumin Level 3.9 gm/dl (3.4-5.0); Aspartate Aminotransferase 16 U/L (15-37); BUN Creatinine Ratio 29.1 (10-20); Blood Urea Nitrogen 38 mg/dl (7-18); Calcium 9.9 mg/dl (8.5-10.1); Carbon Dioxide 27 mmol/L (21-32); Chloride 100 mmol/L (98-107); Creatinine Clr Calc Pharmacy 34.8 ml/min; Est GFR (African American) 48.2; Est GFR (Non-African American) 41.6; Glucose 86 mg/dl (70-99); Potassium 3.4 mmol/L (3.5-5.1); Sodium 137 mmol/L (136-145)
[2018-03-29 14:32] LABS: Albumin Globulin Ratio 0.9 (0.9-2); Alkaline Phosphatase 114 U/L (45-117); Bilirubin,Total 0.6 mg/dl (0.2-1); Globulin 4.6 gm/dl (2.5-4.0); Total Protein 8.5 gm/dl (6.4-8.2); Troponin I < 0.015 ng/ml (0-0.045)
[2018-03-29 14:35] LABS: INR 3.1 (0.9-1.1); Partial Thromboplastin Ratio 1.5; Partial Thromboplastin Time 39.2 Seconds (21.0-31.0); Prothrombin Time 29.3 Seconds (9.0-12.0)
[2018-03-29 14:44] LABS: Appearance Urine Clear (Clear); Bilirubin Urine Negative (Negative); Color Urine Yellow; Glucose Urine UA Negative (Negative); Ketones Urine Negative (Negative); Leukocyte Esterase Urine Negative (Negative); Nitrite Urine Negative (Negative); Protein Urine Negative (Negative); Specific Gravity Urine 1.007 (1.000-1.030); Urobilinogen Urine Negative (Negative); pH Urine 6.5 (4.5-7.5)
[2018-03-29 15:18] LABS: Influenza A virus by PCR Neg for Influ A (Neg); Influenza B virus by PCR Neg for Influ B (Neg)
--- NOTE | 2018-03-29 15:20 | XRay Report ---
XR chest 1V portable CLINICAL HISTORY: 72 years-old Female presenting with Dyspnea. TECHNIQUE: Portable upright AP view of the chest was obtained. COMPARISON: 09/01/2017. FINDINGS: Atherosclerosis of the aortic arch. Tortuosity of the thoracic aorta secondary to moderate dextroscol iosis of the lower thoracic spine. Cardiac silhouette normal in size. Chronic elevation of the right hemidiaphragm. Lungs otherwise clear. Mild hyperinflation on the left. No focal opacity. No large eff usion or pneumothorax. Degenerative changes of the thoracic spine. Degenerative changes of the glenoh umeral joints superior subluxation of the humeral heads. Upper abdomen normal. IMPRESSION: 1. Chronic elevation of the right hemidiaphragm. 2. Findings suggest emphysema. No focal infiltrate to suggest pneumonia. Electronically signed by: Zaki Rubio M.D. 03/29/2018 3:18 PM
[2018-03-29] MEDS ORDERED: POTASSIUM CHLORIDE 10 MEQ TABCR PO STA (15:54)
[2018-03-29 16:46] LABS: Magnesium 1.6 mg/dl (1.8-2.4)
--- NOTE | 2018-03-29 17:24 | History & Physical Report ---
Date of Service March 29, 2018 Assessment & Plan (1) SOB (shortness of breath): Likely COPD Exacerbation DD: panic attack, R/O ACS Nocturnal Hypoxemia as per records--Currently not using Oxygen Former Tobacco use Patient also is not on inhalers CXR:Chronic elevation of the right hemidiaphragm. Findings suggest emphysema. No focal infiltrate to suggest pneumonia. Influenza Screen: Negative Received IV solumedrol, bronchodilators in ED Pro calcitonin: normal Start on Nebs, Prednisone Oxygen support as needed Check Nocturnal Oximetry Study Initial Troponin Negative Check ECHO for wall motion abnormality Repeat EKG in AM Trend Troponin Hypokalemia Hypomagnesemia Replace electrolytes as needed Monitor RASHEL on CKD III: Likely prerenal Hold Lasix, Lisinopril IV fluids Monitor renal function HTN: Stable Continue Diltiazem Hold Lisinopril 2/2 RASHEL P. Afib: Continue Diltiazem Continue Coumadin for anticoagulation Monitor PT/INR:3.1 H/O septic arthritis of left hip with MSSA H/O Avascular necrosis S/P multiple d�bridements Continue home medications Monitor H/O PE, DVT On Co[place]umadin INR: 3.1 Mild Ascending Thoracic Aortic Aneurysm: FU as outpatient GERD: Continue Pepcid DVT Px: on Coumadin Code Status Full Code History of Present Illness Chief Complaint: Shortness of Breath Primary Care Provider: Jeremiah Alvarado MD Patient is a 72 yr female with PMH of HTN, paroxysmal atrial fibrillation on Coumadin, hyperlipidemia, past tobacco use, chronic hyponatremia per records, H/ O septic arthritis of left hip with MSSA with multiple d�bridements, H/O PE, DVT , nocturnal hypoxia but currently not using oxygen, CKD III, Hypomagnesemia, COPD as per records and other problems presents with history of shortness of breath since this morning 3 AM. Patient initially thought shortness of breath is secondary to indigestion and took Pepcid which did not help. Patient continued to have shortness of breath and so came to ED for further evaluation. Patient received Solu-medrol and Nebs treatment in ER which improved her symptoms. Patient reports chronic cough with expectoration which is unchanged. She states she has not been eating well since a couple of days. Her Sats were low 90s when checked by EMT. Patient states having panic attack many years ago and currently denies any issues. Denies any history of chest pain, palpitations , dizziness, wheezing, fever, chills, headache, nausea, vomiting, abdominal pain , diarrhea, dysuria, recent change in medications. Allergies Allergy/AdvReac Type Severity Reaction Status Date / Time brimonidine Allergy Intermediate OTHER-SEE Verified 03/29/18 15:02 COMMENT ceftriaxone Allergy Intermediate RASH Verified 03/29/18 15:02 chlorhexidine Allergy Intermediate RASH Verified 03/29/18 15:02 vancomycin Allergy Intermediate red jez Verified 03/29/18 15:02 syndrome codeine Allergy Mild GI SYMPTOMS Verified 03/29/18 15:02 latex Allergy Mild RASH Verified 03/29/18 15:02 oxycodone Allergy Mild GI Verified 03/29/18 15:02 SYMPTOMS-TYL. W/CODEINE OK nickel Allergy Unknown RASH Verified 03/29/18 15:02 diphenhydramine AdvReac Intermediate Hyper Verified 03/29/18 15:02 Home Medications Home Medications Medication Instructions Recorded Confirmed Type acetaminophen 500 mg tablet 500 mg PO Q4H PRN 12/30/17 03/29/18 History aspirin 81 mg tablet,delayed 81 mg PO DAILY 12/30/17 03/29/18 History release calcium carbonate-vitamin D3 500 1 tab PO DAILY tab 12/30/17 03/29/18 History mg(1,250 mg)-600 unit chewable tablet diltiazem ER 180 mg capsule,24 180 mg PO DAILY 12/30/17 03/29/18 History hr,extended release docusate sodium 100 mg capsule 100 mg PO BID 12/30/17 03/29/18 History famotidine 20 mg tablet 20 mg PO DAILY PRN 12/30/17 03/29/18 History ferrous sulfate 325 mg (65 mg 325 mg PO DAILY tab 12/30/17 03/29/18 History iron) tablet latanoprost 0.005 % eye drops 1 drops OP QPM 12/30/17 03/29/18 History humavgzw-hdpncim-voic-lutein tablet 1 tab PO DAILY tab 12/30/17 03/29/18 History ondansetron 4 mg disintegrating 4 mg PO Q6H PRN tab 12/30/17 03/29/18 History tablet tramadol 50 mg tablet 50 mg PO Q6H 12/30/17 03/29/18 History warfarin 6 mg tablet 6 mg PO QPM tab 12/30/17 03/29/18 History gabapentin 300 mg capsule 300 mg PO TID #90 cap 01/23/18 03/29/18 Rx furosemide [Lasix] 40 mg PO DAILY 03/29/18 03/29/18 History lisinopril 5 mg PO DAILY 03/29/18 03/29/18 History sennosides-docusate sodium 1 tab PO HS 03/29/18 03/29/18 History [Senokot-S] Past Med/Surg History Medical History Asthma (Chronic) COPD (chronic obstructive pulmonary disease) (Chronic) Hypertension (Chronic) Chronic low back pain (Chronic) Lumbar disc disease (Chronic) Dyslipidemia (Chronic) Atrial fibrillation (Chronic) Anemia (Chronic) Hyponatremia (Chronic) CKD (chronic kidney disease), stage III (Chronic) AVN (avascular necrosis of bone) (Chronic) Septic arthritis Osteoarthritis Pulmonary embolism Atrial fibrillation (Chronic) Kidney disease (Chronic) Osteoarthritis (Chronic) History of pulmonary embolism (Resolved) Osteomyelitis (Resolved) Avascular necrosis of bone Hypertension Surgical History History of hip surgery (Resolved) S/P inguinal hernia repair (Chronic) S/P epidural steroid injection (Chronic) History of incision and drainage (Resolved) left hip History of surgery removal of left acetabulum Social History marital status: Current Living Situation: Family current occupational status: retired Other Information That Helps Us Care for You: No Feels Safe at Home: Yes Safety Concerns: Feels Safe At This Time Smoking Status: Former smoker Do You Dip or Chew Tobacco: No Second Hand Exposure: No Tobacco Cessation Education Requested by Patient: No Hx Alcohol Use: Yes Alcohol type: wine Alcohol Intake Frequency: other Hx Substance Use: No Beliefs That Will Affect Care: None Preferred Language: Malagasy Communication Ability: Effective Crucible Furnace Tender Required: No Review of Systems All systems reviewed & are unremarkable except as noted in HPI & below Physical Exam 2 Vital Signs (Past 24 Hours): Last Vital Signs Temp 36.5 C 03/29/18 13:59 Pulse 94 H 03/29/18 17:15 Resp 20 03/29/18 17:15 BP 105/73 03/29/18 17:15 Pulse Ox 95 03/29/18 17:15 Physical Exam: Physical Exam: Vitals signs as noted above General Appearance:Moderately built and nourished, no apparent distress Head: normocephalic, Atraumatic Eyes: normal inspection, EOMI Neck: supple, Trachea midline Respiratory/Chest: Decreased breath sounds, CTA Cardiovascular: S1, S2, + systolic murmur Abdomen/GI:Soft, Non tender, Bowel sounds present Extremities/Musculoskelatal:normal inspection, Trace B/L pedal edema Neurologic/Psych:AAOX3, grossly no focal neurological deficits Skin: normal color, warm Results & Data Laboratory Results Short CBC 03/29/18 03/29/18 Range/Units 13:30 13:30 WBC 6.88 (4.8-10.8) K/uL Hgb 13.4 (12.0-16.0) g/dL Hct 40.6 (37-47) % Plt Count 230 (130-400) K/uL Sodium 137 (136-145) mmol/L BMP 03/29/18 13:30 Sodium 137 Potassium 3.4 L Chloride 100 Carbon Dioxide 27 BUN 38 H Creatinine 1.29 H Glucose 86 Calcium 9.9 Cardiac Enzymes 03/29/18 Range/Units 13:30 Troponin I < 0.015 (0-0.045) ng/ml Liver Function 03/29/18 Range/Units 13:30 Total Bilirubin 0.6 (0.2-1) mg/dl AST 16 (15-37) U/L ALT 22 (12-78) U/L Alkaline Phosphatase 114 (45-117) U/L Albumin 3.9 (3.4-5.0) gm/dl Urine 03/29/18 Range/Units 14:25 Urine Color Yellow Urine Appearance Clear (Clear) Urine pH 6.5 (4.5-7.5) Ur Specific [place] 1.007 (1.000-1.030) Urine Protein Negative (Negative) Urine Glucose (UA) Negative (Negative) Diagnostic Findings CXR: 1.Chronic elevation of the right hemidiaphragm. 2. Findings suggest emphysema. No focal infiltrate to suggest pneumonia. Medications Administered Home Medications Medication Instructions Recorded Confirmed acetaminophen 500 mg tablet 500 mg PO Q4H PRN 12/30/17 03/29/18 aspirin 81 mg tablet,delayed 81 mg PO DAILY 12/30/17 03/29/18 release calcium carbonate-vitamin D3 500 1 tab PO DAILY tab 12/30/17 03/29/18 mg(1,250 mg)-600 unit chewable tablet diltiazem ER 180 mg capsule,24 180 mg PO DAILY 12/30/17 03/29/18 hr,extended release docusate sodium 100 mg capsule 100 mg PO BID 12/30/17 03/29/18 famotidine 20 mg tablet 20 mg PO DAILY PRN 12/30/17 03/29/18 ferrous sulfate 325 mg (65 mg 325 mg PO DAILY tab 12/30/17 03/29/18 iron) tablet latanoprost 0.005 % eye drops 1 drops OP QPM 12/30/17 03/29/18 uhmchfte-vshqgwc-wbxn-lutein tablet 1 tab PO DAILY tab 12/30/17 03/29/18 ondansetron 4 mg disintegrating 4 mg PO Q6H PRN tab 12/30/17 03/29/18 tablet tramadol 50 mg tablet 50 mg PO Q6H 12/30/17 03/29/18 warfarin 6 mg tablet 6 mg PO QPM tab 12/30/17 03/29/18 furosemide [Lasix] 40 mg PO DAILY 03/29/18 03/29/18 lisinopril 5 mg PO DAILY 03/29/18 03/29/18 sennosides-docusate sodium 1 tab PO HS 03/29/18 03/29/18 [Senokot-S] Previous Rx's Medication Instructions Recorded gabapentin 300 mg capsule 300 mg PO TID #90 cap 01/23/18 ECG Additional Comments: EKG: Sinus Tachycardia, Non specific ST-T wave changes, QTC:437
--- NOTE | 2018-03-29 17:47 | Emergency Department Note ---
Entered by Fanny Peres acting as a scribe for History of Present Illness General Chief complaint: Shortness of Breath/Dyspnea Stated complaint: sob Source: patient Mode of arrival: EMS Limitations: no limitations History of Present Illness Provider complaint: Shortness of breath Onset (ago): hour(s) (around 0300 today) Location: chest Radiation: non-radiation Pain Consistency: + other (worsening) Quality: + other (shortness of breath) Relieved By: + medication (breathing treatments) and + rest Exacerbated By: + other (exertion) Associated symptoms: + cough (baseline) and + other (Additional symptoms: prather ashen appearance. Denies: diarrhea, swelling to the extremities); no chest pain and no nausea/vomiting Treatments prior to arrival: other (breathing treatments) The patient is a 72 year old female with a history of COPD, asthma, hypertension , dyslipidemia, chronic low back pain, osteoarthritis, lumbar disc disease, stage 3 chronic kidney disease, avascular necrosis of bone, and PE who presents to the Emergency Room with complaints of worsening shortness of breath starting around 0300 today. The patient reports that she initially thought her symptom was secondary to a panic attack but it has not improved. She notes that her shortness of breath worsens with exertion and slightly improves with rest and breathing treatments. She also complains of a baseline cough but denies any nausea, vomiting, diarrhea, chest pain, and swelling to the extremities. Per nurse, the patient appeared prather and ashen when EMS arrived on scene. The patient reports that she is on Coumadin for atrial fibrillation and her INR was 3.3 yesterday. She adds that she does not normally wear oxygen and that she has no history of heart failure. No other exacerbating or remitting factors. Home Medications Home Medications Medication Instructions Recorded Confirmed Type acetaminophen 500 mg tablet 500 mg PO Q4H PRN 12/30/17 03/29/18 History aspirin 81 mg tablet,delayed 81 mg PO DAILY 12/30/17 03/29/18 History release calcium carbonate-vitamin D3 500 1 tab PO DAILY tab 12/30/17 03/29/18 History mg(1,250 mg)-600 unit chewable tablet diltiazem ER 180 mg capsule,24 180 mg PO DAILY 12/30/17 03/29/18 History hr,extended release docusate sodium 100 mg capsule 100 mg PO BID 12/30/17 03/29/18 History famotidine 20 mg tablet 20 mg PO DAILY PRN 12/30/17 03/29/18 History ferrous sulfate 325 mg (65 mg 325 mg PO DAILY tab 12/30/17 03/29/18 History iron) tablet latanoprost 0.005 % eye drops 1 drops OP QPM 12/30/17 03/29/18 History vvqoamgj-ovnnvbc-agsz-lutein tablet 1 tab PO DAILY tab 12/30/17 03/29/18 History ondansetron 4 mg disintegrating 4 mg PO Q6H PRN tab 12/30/17 03/29/18 History tablet tramadol 50 mg tablet 50 mg PO Q6H 12/30/17 03/29/18 History warfarin 6 mg tablet 6 mg PO QPM tab 12/30/17 03/29/18 History gabapentin 300 mg capsule 300 mg PO TID #90 cap 01/23/18 03/29/18 Rx furosemide [Lasix] 40 mg PO DAILY 03/29/18 03/29/18 History lisinopril 5 mg PO DAILY 03/29/18 03/29/18 History sennosides-docusate sodium 1 tab PO HS 03/29/18 03/29/18 History [Senokot-S] Allergies Allergy/AdvReac Type Severity Reaction Status Date / Time brimonidine Allergy Intermediate OTHER-SEE Verified 03/29/18 15:02 COMMENT ceftriaxone Allergy Intermediate RASH Verified 03/29/18 15:02 chlorhexidine Allergy Intermediate RASH Verified 03/29/18 15:02 vancomycin Allergy Intermediate red jez Verified 03/29/18 15:02 syndrome codeine Allergy Mild GI SYMPTOMS Verified 03/29/18 15:02 latex Allergy Mild RASH Verified 03/29/18 15:02 oxycodone Allergy Mild GI Verified 03/29/18 15:02 SYMPTOMS-TYL. W/CODEINE OK nickel Allergy Unknown RASH Verified 03/29/18 15:02 diphenhydramine AdvReac Intermediate Hyper Verified 03/29/18 15:02 Past Med/Surg History Medical History Asthma (Chronic) COPD (chronic obstructive pulmonary disease) (Chronic) Hypertension (Chronic) Chronic low back pain (Chronic) Lumbar disc disease (Chronic) Dyslipidemia (Chronic) Atrial fibrillation (Chronic) Anemia (Chronic) Hyponatremia (Chronic) CKD (chronic kidney disease), stage III (Chronic) AVN (avascular necrosis of bone) (Chronic) Septic arthritis Osteoarthritis Pulmonary embolism Atrial fibrillation (Chronic) Kidney disease (Chronic) Osteoarthritis (Chronic) History of pulmonary embolism (Resolved) Osteomyelitis (Resolved) Avascular necrosis of bone Hypertension Surgical History History of hip surgery (Resolved) S/P inguinal hernia repair (Chronic) S/P epidural steroid injection (Chronic) History of incision and drainage (Resolved) left hip History of surgery removal of left acetabulum Social History marital status: current occupational status: retired Feels Safe at Home: Yes Smoking Status: Former smoker Hx Alcohol Use: Yes (socially) Hx Substance Use: No Preferred Language: Danish Review of Systems See HPI for pertinent positives & negatives. and A total of 10 systems reviewed and were otherwise negative Physical Exam Vital Signs Vital Signs - 24 hr 03/29/18 13:59 03/29/18 14:14 03/29/18 15:30 Temperature 36.5 C Temperature Source Oral Sepsis Recent Fever Within 48 Hours No Sepsis New/Unexplained Change in Mental Status No Sepsis Action Taken by Nursing No Action Required Pulse Rate Pulse Rate [Left Finger] 89 110 H Pulse Rhythm [Left Finger] Regular Pulse Strength [Left Finger] Normal Respiratory Rate 18 18 Respiratory Effort / Characteristics Non-Labored Spontaneous Non-Labored Spontaneous Respiratory Depth Normal Normal Respiratory Pattern Regular Regular Blood Pressure Blood Pressure [Left Arm] 142/72 H 133/83 Blood Pressure Mean [Left Arm] 95 99 Blood Pressure Position [Left Arm] Lying Lying Pulse Oximetry 96 96 95 Oxygen Delivery Method Room Air Room Air Room Air 03/29/18 16:46 03/29/18 17:15 Temperature Temperature Source Sepsis Recent Fever Within 48 Hours Sepsis New/Unexplained Change in Mental Status Sepsis Action Taken by Nursing Pulse Rate 94 H Pulse Rate [Left Finger] 95 H Pulse Rhythm [Left Finger] Regular Pulse Strength [Left Finger] Normal Respiratory Rate 18 20 Respiratory Effort / Characteristics Non-Labored Spontaneous Respiratory Depth Normal Respiratory Pattern Regular Blood Pressure 105/73 Blood Pressure [Left Arm] 122/64 Blood Pressure Mean [Left Arm] 83 Blood Pressure Position [Left Arm] Lying Pulse Oximetry 94 95 Oxygen Delivery Method Room Air Room Air GENERAL: Sitting up in bed, alert, chronically ill appearing, well nourished, no distress, non-toxic, talking in full sentences EYE EXAM: normal conjunctiva. OROPHARYNX: no exudate, no erythema, lips, buccal mucosa, and tongue normal and mucous membranes are moist NECK: supple, no nuchal rigidity, no adenopathy, non-tender LUNGS: Diffuse wheezing bilaterally. Normal chest wall mechanics HEART: no murmurs, S1 normal and S2 normal ABDOMEN: abdomen soft, non-tender, normo-active bowel, sounds, no masses, no rebound or guarding. BACK: Back is symmetrical on inspection and there is no deformity, no midline tenderness, no CVA tenderness. SKIN: no rashes and no bruising UPPER EXTREMITIES: upper extremities are grossly normal. LOWER EXTREMITIES: No pitting edema. Calves equal bilaterally. NEURO EXAM: Normal sensorium, cranial nerves II-XII grossly intact, normal speech, no gross weakness of arms, no gross weakness of legs. Gross sensation intact. Course ED COURSE: Vital signs were reviewed and were normal. The patients medical record was reviewed The above diagnostic studies were performed and reviewed. ED treatments and interventions as stated above. 1403: The patient was evaluated in room A3. A complete history and physical examination was performed. 1544: I reviewed the patient's case with Gucci Fermin PA-C. Cynthia will evaluate the patient for further management. 1548: Upon reevaluation, the patient is resting. I discussed my findings with the patient and she understands and agrees with the treatment plan. Based on the patients age, coexisting illnesses, exam and lab findings the decision to treat as an inpatient was made. The patient remained stable while under my care. The patient will be evaluated for further management. Consultations Consultation #1: I reviewed the patient's case with Gucci Fermin PA-C. Cynthia will evaluate the patient for further management. Time: 15:44 Administered Medications Discontinued Medications Albuterol (Duoneb) 6 ml INH NOW STA Stop: 03/29/18 14:10 Last Admin: 03/29/18 14:35 Dose: 6 ml Sodium Chloride (Nss 1000ml) 1,000 mls @ 999 mls/hr IV .Q1H1M CAN Stop: 03/29/18 15:15 Last Infusion: 03/29/18 15:36 Dose: 0 mls/hr Admin: 03/29/18 14:35 Dose: 999 mls/hr Methylprednisolone (Solumedrol) 125 mg IV NOW STA Stop: 03/29/18 14:10 Last Admin: 03/29/18 14:35 Dose: 125 mg Potassium Chloride (Klor-Con M10) 40 meq PO NOW STA Stop: 03/29/18 15:55 Last Admin: 03/29/18 16:45 Dose: 40 meq Medical Decision Making Differential Diagnosis Differential diagnosis: Etiologies such as infections, reactive airway disease, COPD, pneumonia, pleural effusion, pulmonary edema, ARDS, pneumothorax, CHF, cardiac ischemia, cardiac tamponade, dysrhythmia, anemia, pulmonary embolism, musculoskeletal, gastrointestinal process, as well as others were entertained. Medical Records Attestation: I reviewed the patient's medical records. Home Medications Current Medication List: was personally reviewed by me Laboratory Data Attestation: I reviewed the patient's lab results. Result diagrams: 03/29/18 13:30 03/29/18 13:30 Lab Results 03/29/18 03/29/18 03/29/18 Range/Units 13:30 13:30 13:30 WBC 6.88 (4.8-10.8) K/uL RBC 4.16 L (4.2-5.4) M/uL Hgb 13.4 (12.0-16.0) g/dL Hct 40.6 (37-47) % MCV 97.6 (80-100) fL MCH 32.2 (25-34) pg MCHC 33.0 (32-36) g/dL RDW Std Deviation 50.0 H (36.4-46.3) fL RDW Coeff of Jimmy 14.0 (11.5-14.5) % Plt Count 230 (130-400) K/uL MPV 10.7 H (7.4-10.4) fL Immature Gran % (Auto) 0.3 % Neut % (Auto) 58.9 % Lymph % (Auto) 29.9 % [place] % (Auto) 6.7 % Eos % (Auto) 3.8 % Baso % (Auto) 0.4 % Immature Gran # (Auto) 0.02 (0.00-0.02) K/uL Neut # (Auto) 4.05 (1.4-6.5) K/uL Lymph # (Auto) 2.06 (1.2-3.4) K/uL [place] # (Auto) 0.46 (0.11-0.59) K/uL Eos # (Auto) 0.26 (0-0.5) K/uL Baso # (Auto) 0.03 (0-0.2) K/uL PT 29.3 H (9.0-12.0) Seconds INR 3.1 H (0.9-1.1) APTT 39.2 H (21.0-31.0) Seconds PTT Ratio 1.5 Sodium 137 (136-145) mmol/L Potassium 3.4 L (3.5-5.1) mmol/L Chloride 100 (98-107) mmol/L Carbon Dioxide 27 (21-32) mmol/L Anion Gap 10.0 (3-11) BUN 38 H (7-18) mg/dl Creatinine 1.29 H (0.6-1.2) mg/dl Est Cr Clr Drug Dosing 34.8 ml/min Est GFR ( Amer) 48.2 Est GFR (Non-Af Amer) 41.6 BUN/Creatinine Ratio 29.1 H (10-20) Glucose 86 (70-99) mg/dl Calcium 9.9 (8.5-10.1) mg/dl Magnesium 1.6 L (1.8-2.4) mg/dl Total Bilirubin 0.6 (0.2-1) mg/dl AST 16 (15-37) U/L ALT 22 (12-78) U/L Alkaline Phosphatase 114 (45-117) U/L Troponin I < 0.015 (0-0.045) ng/ml Total Protein 8.5 H (6.4-8.2) gm/dl Albumin 3.9 (3.4-5.0) gm/dl Globulin 4.6 H (2.5-4.0) gm/dl Albumin/Globulin Ratio 0.9 (0.9-2) Urine Color Urine Appearance (Clear) Urine pH (4.5-7.5) Ur Specific [place] (1.000-1.030) Urine Protein (Negative) Urine Glucose (UA) (Negative) Urine Ketones (Negative) Urine Blood (Negative) Urine Nitrite (Negative) Urine Bilirubin (Negative) Urine Urobilinogen (Negative) Ur Leukocyte Esterase (Negative) Influenza Type A (PCR) (Neg) Influenza Type B (PCR) (Neg) 03/29/18 03/29/18 Range/Units 14:25 14:25 WBC (4.8-10.8) K/uL RBC (4.2-5.4) M/uL Hgb (12.0-16.0) g/dL Hct (37-47) % MCV (80-100) fL MCH (25-34) pg MCHC (32-36) g/dL RDW Std Deviation (36.4-46.3) fL RDW Coeff of Jimmy (11.5-14.5) % Plt Count (130-400) K/uL MPV (7.4-10.4) fL Immature Gran % (Auto) % Neut % (Auto) % Lymph % (Auto) % [place] % (Auto) % Eos % (Auto) % Baso % (Auto) % Immature Gran # (Auto) (0.00-0.02) K/uL Neut # (Auto) (1.4-6.5) K/uL Lymph # (Auto) (1.2-3.4) K/uL [place] # (Auto) (0.11-0.59) K/uL Eos # (Auto) (0-0.5) K/uL Baso # (Auto) (0-0.2) K/uL PT (9.0-12.0) Seconds INR (0.9-1.1) APTT (21.0-31.0) Seconds PTT Ratio Sodium (136-145) mmol/L Potassium (3.5-5.1) mmol/L Chloride (98-107) mmol/L Carbon Dioxide (21-32) mmol/L Anion Gap (3-11) BUN (7-18) mg/dl Creatinine (0.6-1.2) mg/dl Est Cr Clr Drug Dosing ml/min Est GFR ( Amer) Est GFR (Non-Af Amer) BUN/Creatinine Ratio (10-20) Glucose (70-99) mg/dl Calcium (8.5-10.1) mg/dl Magnesium (1.8-2.4) mg/dl Total Bilirubin (0.2-1) mg/dl AST (15-37) U/L ALT (12-78) U/L Alkaline Phosphatase (45-117) U/L Troponin I (0-0.045) ng/ml Total Protein (6.4-8.2) gm/dl Albumin (3.4-5.0) gm/dl Globulin (2.5-4.0) gm/dl Albumin/Globulin Ratio (0.9-2) Urine Color Yellow Urine Appearance Clear (Clear) Urine pH 6.5 (4.5-7.5) Ur Specific [place] 1.007 (1.000-1.030) Urine Protein Negative (Negative) Urine Glucose (UA) Negative (Negative) Urine Ketones Negative (Negative) Urine Blood Negative (Negative) Urine Nitrite Negative (Negative) Urine Bilirubin Negative (Negative) Urine Urobilinogen Negative (Negative) Ur Leukocyte Esterase Negative (Negative) Influenza Type A (PCR) Neg for Influ A (Neg) Influenza Type B (PCR) Neg for Influ B (Neg) Imaging Data Radiologist's Impression: Radiology results as stated below per my review and the radiologist's interpretation: XR chest 1V portable CLINICAL HISTORY: 72 years-old Female presenting with Dyspnea. TECHNIQUE: Portable upright AP view of the chest was obtained. COMPARISON: 09/01/2017. FINDINGS: Atherosclerosis of the aortic arch. Tortuosity of the thoracic aorta secondary to moderate dextroscoliosis of the lower thoracic spine. Cardiac silhouette normal in size. Chronic elevation of the right hemidiaphragm. Lungs otherwise clear. Mild hyperinflation on the left. No focal opacity. No large effusion or pneumothorax. Degenerative changes of the thoracic spine. Degenerative changes of the glenohumeral joints superior subluxation of the humeral heads. Upper abdomen normal. IMPRESSION: 1. Chronic elevation of the right hemidiaphragm. 2. Findings suggest emphysema. No focal infiltrate to suggest pneumonia. Electronically signed by: Zaki Rubio M.D. 03/29/2018 3:18 PM ECG Data Attestation: I personally reviewed and interpreted this ECG as follows: Indication: SOB/dyspnea Rate (beats per minute): 102 Rhythm: sinus tachycardia Findings: + other (normal axis), + Q waves (septal) and + ST depression (in lateral, high lateral, and inferior leads) Comparison ECG Date: from (09/03/17) Change: the following changes noted (Septal Q waves are new. ST depression in lateral leads are worse. ST depression in inferior leads are slightly worse.) Blood Pressure Blood Pressure Findings: Elevated blood pressure Blood Pressure Disposition: elevated BP felt to be situational MDM Narrative Patient is a 72-year-old female who presents the ER via EMS for shortness of breath. Per EMS she was ashen prather and in moderate distress on arrival. She was given a neb treatment prior to arrival here did feel improved. She is a history of COPD/asthma. Upon arrival she is found to be still short of breath. Labs were obtained and showed no significant leukocytosis or anemia. INR was supratherapeutic at 3.0. PE was not pursued secondary to this. BMP with mild hypokalemia at 3.4. Creatinine was at 1.29. LFTs and troponin was negative. Chest x-ray with no acute pathology. Patient was given neb treatments and steroids. She was updated bedside. She did feel slightly better. EKG did show new changes but with a negative troponin uncertain if this is new or old. Discussed with the hospitalist and the patient. Family was updated bedside. She will be observed overnight. Impression & Plan SOB (shortness of breath), COPD exacerbation, Acute electrocardiogram changes Discharge Plan Visit Data Chief Complaint: Shortness of Breath/Dyspnea Stated Complaint: sob ED Provider: Franko Maki Discharge Problem: SOB (shortness of breath), COPD exacerbation, Acute electrocardiogram changes Patient Disposition: Admitted As Inpatient Discharge Instructions Interventions: ED Discharge Assessment Last Done: 03/29/18 17:15 The scribe's documentation has been prepared under my direction and personally reviewed by me in its entirety. I confirm that the note above accurately reflects all work, treatment, procedures, and medical decision making performed by me.
[2018-03-29] MEDS ORDERED: NITROGLYCERIN SL 0.4 MG/TAB TAB SL PRN (18:01)
[2018-03-29] MEDS ORDERED: FAMOTIDINE 20 MG TAB PO PRN (18:01)
[2018-03-29] MEDS ORDERED: ONDANSETRON INJ 2 MG/ML 2 ML VIAL IV PRN (18:01)
[2018-03-29] MEDS ORDERED: WARFARIN SOD 1 MG TAB PO ONE (18:01)
[2018-03-29] MEDS ORDERED: NSS + 20MEQ KCL 20 MEQ/1,000 ML BAG IV ONE (18:30)
[2018-03-29] MEDS: MAGNESIUM SULFATE / D5W 1 GM/100 ML BAG IV SCH ×2 (19:39→20:37)
[2018-03-29] MEDS: ALBUT/IPRATROP 3MG/0.5MG NEB 3 ML VIAL NEB SCH (20:13)
[2018-03-29] MEDS: DOCUSATE SODIUM/SENNA 50/8.6MG TAB PO SCH (20:38)
[2018-03-29] MEDS: DOCUSATE SODIUM 100 MG CAP PO SCH (20:39)
[2018-03-29] MEDS: GABAPENTIN 300 MG CAP PO SCH (20:40)
[2018-03-29] MEDS: LATANOPROST 0.005% OP SOLN 2.5 ML BTL OP SCH (20:40)
[2018-03-29] MEDS: CALCIUM 600MG + VIT D 400 IU TAB PO SCH (21:08)
[2018-03-29] MEDS: TRAMADOL HCL 50 MG TABLET PO PRN (22:44)
[2018-03-30] MEDS: ACETAMINOPHEN 325 MG TAB PO PRN ×2 (03:11→08:15)
[2018-03-30 06:32] LABS: Hematocrit (blood only) 35.5 % (37-47); Hemoglobin 11.5 g/dL (12.0-16.0); Mean Corpuscular Hgb Conc 32.4 g/dL (32-36); Mean Corpuscular Volume 98.9 fL (80-100); Mean Platelet Volume 10.6 fL (7.4-10.4); Platelet Count 193 K/uL (130-400); RDW Standard Deviation 50.3 fL (36.4-46.3); Red Blood Count 3.59 M/uL (4.2-5.4); White Blood Count 6.54 K/uL (4.8-10.8)
[2018-03-30 06:46] LABS: INR 2.2 (0.9-1.1); Prothrombin Time 21.6 Seconds (9.0-12.0)
[2018-03-30] MEDS: ALBUT/IPRATROP 3MG/0.5MG NEB 3 ML VIAL NEB SCH ×4 (06:56→18:47)
[2018-03-30 07:21] LABS: BUN Creatinine Ratio 33.5 (10-20); Calcium 9.8 mg/dl (8.5-10.1); Creatinine Clr Calc Pharmacy 42.8 ml/min; Est GFR (African American) 61.9; Est GFR (Non-African American) 53.4; Magnesium 2.2 mg/dl (1.8-2.4)
[2018-03-30] MEDS: DOCUSATE SODIUM 100 MG CAP PO SCH ×2 (08:10→20:40)
[2018-03-30] MEDS: FERROUS SULFATE 325 MG TAB PO SCH (08:11)
[2018-03-30] MEDS: ASPIRIN 81 MG ECTAB PO SCH (08:11)
[2018-03-30] MEDS: GABAPENTIN 300 MG CAP PO SCH ×3 (08:11→20:40)
[2018-03-30] MEDS: dilTIAZem ER 180 MG CAPCR PO SCH (08:12)
[2018-03-30] MEDS: TRAMADOL HCL 50 MG TABLET PO PRN ×2 (08:15→22:20)
[2018-03-30] MEDS ORDERED: CALCIUM 600MG + VIT D 400 IU TAB PO SCH (09:00)
[2018-03-30] MEDS ORDERED: predniSONE 20 MG TAB PO SCH (09:00)
--- NOTE | 2018-03-30 17:04 | Hospitalist Progress Note ---
Date of Service March 30, 2018 Assessment & Plan (1) SOB (shortness of breath): Likely COPD Exacerbation DD: panic attack, R/O ACS Nocturnal Hypoxemia as per records--Currently not using Oxygen prior to admission Former Tobacco use Patient also is not on inhalers CXR:Chronic elevation of the right hemidiaphragm. Findings suggest emphysema. No focal infiltrate to suggest pneumonia. Influenza Screen: Negative Received IV solumedrol, bronchodilators in ED Pro calcitonin: normal Continue Nebs, Prednisone taper Oxygen support as needed Nocturnal Oximetry Study: Needs Oxygen at bedtime 2 step: Did not qualify for oxygen Troponin X 2: Negative ECHO: pending Will need Sleep Study and PFTs as outpatient Hypokalemia Hypomagnesemia Replace electrolytes as needed Monitor RASHEL on CKD III: Likely prerenal Resolved Hold Lasix Resume Lisinopril as able Received IV fluids Monitor renal function HTN: Continue Diltiazem Resume Lisinopril P. Afib: Continue Diltiazem Continue Coumadin for anticoagulation Monitor PT/INR:2.2 H/O septic arthritis of left hip with MSSA H/O Avascular necrosis S/P multiple d�bridements Continue home medications Monitor H/O PE, DVT On Coaumadin INR therapeutic Mild Ascending Thoracic Aortic Aneurysm: FU as outpatient GERD: Continue Pepcid DVT Px: on Coumadin Code Status Full Code Subjective Patient is seen and examined at bedside She qualifies for nocturnal oxygen on Oximetry study She feels less SOB today Denies chest pain, dizziness, nausea, abd pain Offers no other comaplints ECHO pending Physical Exam 2 Vital Signs (Past 24 Hours): Last Vital Signs Temp 36.8 C 03/30/18 14:53 Pulse 99 H 03/30/18 15:04 Resp 17 03/30/18 15:04 BP 164/79 H 03/30/18 14:53 Pulse Ox 94 03/30/18 15:04 Physical Exam: Physical Exam: Vitals signs as noted above General Appearance:Moderately built and nourished, no apparent distress Head: normocephalic, Atraumatic Eyes: normal inspection, EOMI Neck: supple, Trachea midline Respiratory/Chest: Normal breath sounds, CTA Cardiovascular: S1, S2, + systolic murmur Abdomen/GI:Soft, Non tender, Bowel sounds present Extremities/Musculoskelatal:normal inspection, Trace B/L pedal edema Neurologic/Psych:AAOX3, grossly no focal neurological deficits Skin: normal color, warm Results & Data Laboratory Results Short CBC 03/30/18 Range/Units 05:55 WBC 6.54 (4.8-10.8) K/uL Hgb 11.5 L (12.0-16.0) g/dL Hct 35.5 L (37-47) % Plt Count 193 (130-400) K/uL BMP 03/30/18 05:55 Sodium 138 Potassium 5.0 D Chloride 106 Carbon Dioxide 28 BUN 35 H Creatinine 1.05 Glucose 162 H Calcium 9.8 Cardiac Enzymes 03/29/18 Range/Units 19:17 Troponin I < 0.015 (0-0.045) ng/ml
[2018-03-30] MEDS: WARFARIN SOD 4 MG TAB PO SCH (17:06)
[2018-03-30] MEDS: LISINOPRIL 5 MG TAB PO SCH (18:34)
[2018-03-30] MEDS: LATANOPROST 0.005% OP SOLN 2.5 ML BTL OP SCH (20:39)
[2018-03-30] MEDS: CALCIUM 600MG + VIT D 400 IU TAB PO SCH (20:40)
[2018-03-30] MEDS: DOCUSATE SODIUM/SENNA 50/8.6MG TAB PO SCH (20:40)
[2018-03-31 06:12] LABS: Hemoglobin 10.9 g/dL (12.0-16.0); Mean Corpuscular Hgb Conc 32.1 g/dL (32-36); Mean Corpuscular Volume 100.9 fL (80-100); Platelet Count 180 K/uL (130-400); RDW Coefficient of Variation 14.3 % (11.5-14.5); RDW Standard Deviation 52.6 fL (36.4-46.3); Red Blood Count 3.37 M/uL (4.2-5.4); White Blood Count 12.85 K/uL (4.8-10.8)
[2018-03-31 06:33] LABS: INR 2.8 (0.9-1.1); Prothrombin Time 26.7 Seconds (9.0-12.0)
[2018-03-31 06:43] LABS: BUN Creatinine Ratio 33.1 (10-20); Calcium 9.4 mg/dl (8.5-10.1); Creatinine Clr Calc Pharmacy 41.6 ml/min; Est GFR (African American) 59.8; Est GFR (Non-African American) 51.6; Potassium 4.2 mmol/L (3.5-5.1)
[2018-03-31] MEDS: ALBUT/IPRATROP 3MG/0.5MG NEB 3 ML VIAL NEB SCH ×4 (07:00→18:59)
[2018-03-31] MEDS: DOCUSATE SODIUM 100 MG CAP PO SCH ×2 (08:19→20:42)
[2018-03-31] MEDS: GABAPENTIN 300 MG CAP PO SCH ×3 (08:20→20:42)
[2018-03-31] MEDS: FERROUS SULFATE 325 MG TAB PO SCH (08:20)
[2018-03-31] MEDS: ASPIRIN 81 MG ECTAB PO SCH (08:20)
[2018-03-31] MEDS: dilTIAZem ER 180 MG CAPCR PO SCH (08:21)
[2018-03-31] MEDS: LISINOPRIL 5 MG TAB PO SCH (08:21)
[2018-03-31] MEDS: predniSONE 20 MG TAB PO SCH (08:23)
[2018-03-31] MEDS ORDERED: predniSONE 10 MG TABLET PO SCH (09:00)
[2018-03-31] MEDS: FUROSEMIDE 40 MG TAB PO SCH (10:45)
--- NOTE | 2018-03-31 11:20 | Hospitalist Progress Note ---
Date of Service March 31, 2018 Assessment & Plan (1) SOB (shortness of breath): Likely mild COPD Exacerbation DD: panic attack, Nocturnal hypoxemia Nocturnal Hypoxemia as per records--Currently not using Oxygen prior to admission Former Tobacco use Patient also is not on inhalers CXR:Chronic elevation of the right hemidiaphragm. Findings suggest emphysema. No focal infiltrate to suggest pneumonia. Influenza Screen: Negative Received IV solumedrol, bronchodilators in ED Pro calcitonin: normal Continue Nebs, Prednisone taper Oxygen support as needed Nocturnal Oximetry Study: Needs Oxygen at bedtime 2 step: Did not qualify for oxygen Troponin X 2: Negative ECHO:No regional wall motion abnormalities Will need Sleep Study and PFTs as outpatient No signs of volume overload Advised to follow up with Cardiology as outpatient given Grade II diastolic dysfunction Hypokalemia Hypomagnesemia Replace electrolytes as needed Monitor RASHEL on CKD III: Likely prerenal Resolved Resume Lasix Resume Lisinopril as able Received IV fluids Monitor renal function HTN: Continue Diltiazem, lisinopril P. Afib: Continue Diltiazem Continue Coumadin for anticoagulation Monitor PT/INR:2.8 H/O septic arthritis of left hip with MSSA H/O Avascular necrosis S/P multiple d�bridements Continue home medications Monitor H/O PE, DVT On [place]adin INR therapeutic Mild Ascending Thoracic Aortic Aneurysm: FU as outpatient GERD: Continue Pepcid DVT Px: on Coumadin Code Status Full Code Subjective Patient is seen and examined at bedside Doing well today No new complaints Denies chest pain, dyspnea, dizziness, nausea, abd pain Physical Exam 2 Vital Signs (Past 24 Hours): Last Vital Signs Temp 36.4 C L 03/31/18 07:26 Pulse 86 03/31/18 11:02 Resp 16 03/31/18 11:02 BP 119/70 03/31/18 07:26 Pulse Ox 96 03/31/18 11:02 Physical Exam: Physical Exam: Vitals signs as noted above General Appearance:Moderately built and nourished, no apparent distress Head: normocephalic, Atraumatic Eyes: normal inspection, EOMI Neck: supple, Trachea midline Respiratory/Chest: Normal breath sounds, CTA Cardiovascular: S1, S2, + systolic murmur Abdomen/GI:Soft, Non tender, Bowel sounds present Extremities/Musculoskelatal:normal inspection, Trace B/L pedal edema Neurologic/Psych:AAOX3, grossly no focal neurological deficits Skin: normal color, warm Results & Data Laboratory Results Short CBC 03/31/18 Range/Units 06:01 WBC 12.85 H (4.8-10.8) K/uL Hgb 10.9 L (12.0-16.0) g/dL Hct 34.0 L (37-47) % Plt Count 180 (130-400) K/uL [facility] 03/31/18 06:01 Sodium 139 Potassium 4.2 D Chloride 105 Carbon Dioxide 28 BUN 36 H Creatinine 1.08 Glucose 115 H Calcium 9.4 Diagnostic Findings Short CBC 03/31/18 Range/Units 06:01 WBC 12.85 H (4.8-10.8) K/uL Hgb 10.9 L (12.0-16.0) g/dL Hct 34.0 L (37-47) % Plt Count 180 (130-400) K/uL [facility] 03/31/18 06:01 Sodium 139 Potassium 4.2 D Chloride 105 Carbon Dioxide 28 BUN 36 H Creatinine 1.08 Glucose 115 H Calcium 9.4
--- NOTE | 2018-03-31 11:29 | Discharge Summary ---
Date of Service March 31, 2018 Admission HPI Per Admitting Provider Patient is a 72 yr female with PMH of HTN, paroxysmal atrial fibrillation on Coumadin, hyperlipidemia, past tobacco use, chronic hyponatremia per records, H/ O septic arthritis of left hip with MSSA with multiple d�bridements, H/O PE, DVT , nocturnal hypoxia but currently not using oxygen, CKD III, Hypomagnesemia, COPD as per records and other problems presents with history of shortness of breath since this morning 3 AM. Patient initially thought shortness of breath is secondary to indigestion and took Pepcid which did not help. Patient continued to have shortness of breath and so came to ED for further evaluation. Patient received Solu-medrol and Nebs treatment in ER which improved her symptoms. Patient reports chronic cough with expectoration which is unchanged. She states she has not been eating well since a couple of days. Her Sats were low 90s when checked by EMT. Patient states having panic attack many years ago and currently denies any issues. Denies any history of chest pain, palpitations , dizziness, wheezing, fever, chills, headache, nausea, vomiting, abdominal pain , diarrhea, dysuria, recent change in medications. Admission Exam Per Admitting Provider Physical Exam: Vitals signs as noted above General Appearance:Moderately built and nourished, no apparent distress Head: normocephalic, Atraumatic Eyes: normal inspection, EOMI Neck: supple, Trachea midline Respiratory/Chest: Normal breath sounds, CTA Cardiovascular: S1, S2, + systolic murmur Abdomen/GI:Soft, Non tender, Bowel sounds present Extremities/Musculoskelatal:normal inspection, Trace B/L pedal edema Neurologic/Psych:AAOX3, grossly no focal neurological deficits Skin: normal color, warm Principal Diagnosis Discharge Information Discharge Diagnosis Nocturnal hypoxemia Hypokalemia Hypomagnesemia RASHEL on CKD III Possible Mild COPD Discharge Goals Decrease discomfort,Improve function,Improve disease control Discharge Activity Limitations Resume your previous activity Discharge Data Allergies Allergy/AdvReac Type Severity Reaction Status Date / Time brimonidine Allergy Intermediate OTHER-SEE Verified 03/29/18 15:02 COMMENT ceftriaxone Allergy Intermediate RASH Verified 03/29/18 15:02 chlorhexidine Allergy Intermediate RASH Verified 03/29/18 15:02 vancomycin Allergy Intermediate red jez Verified 03/29/18 15:02 syndrome codeine Allergy Mild GI SYMPTOMS Verified 03/29/18 15:02 latex Allergy Mild RASH Verified 03/29/18 15:02 oxycodone Allergy Mild GI Verified 03/29/18 15:02 SYMPTOMS-TYL. W/CODEINE OK nickel Allergy Unknown RASH Verified 03/29/18 15:02 diphenhydramine AdvReac Intermediate Hyper Verified 03/29/18 15:02 Consultations 03/29/18 15:44 ED Decision to Admit Stat 03/29/18 18:01 Consult Case Management - Discharge Planning Routine Procedures Performed CXR: 1. Chronic elevation of the right hemidiaphragm. 2. Findings suggest emphysema. No focal infiltrate to suggest pneumonia. Hospital Course (1) SOB (shortness of breath): Likely mild COPD Exacerbation DD: panic attack, Nocturnal hypoxemia Nocturnal Hypoxemia as per records--Currently not using Oxygen prior to admission Former Tobacco use Patient also is not on inhalers CXR:Chronic elevation of the right hemidiaphragm. Findings suggest emphysema. No focal infiltrate to suggest pneumonia. Influenza Screen: Negative Received IV solumedrol, bronchodilators in ED Pro calcitonin: normal Continue Nebs, Prednisone taper Oxygen support as needed Nocturnal Oximetry Study: Needs Oxygen at bedtime 2 step: Did not qualify for oxygen Troponin X 2: Negative ECHO:No regional wall motion abnormalities Will need Sleep Study and PFTs as outpatient No signs of volume overload Advised to follow up with Cardiology as outpatient given Grade II diastolic dysfunction Hypokalemia Hypomagnesemia Replace electrolytes as needed Monitor RASHEL on CKD III: Likely prerenal Resolved Resume Lasix Resume Lisinopril as able Received IV fluids Monitor renal function HTN: Continue Diltiazem, lisinopril P. Afib: Continue Diltiazem Continue Coumadin for anticoagulation Monitor PT/INR:2.8 H/O septic arthritis of left hip with MSSA H/O Avascular necrosis S/P multiple d�bridements Continue home medications Monitor H/O PE, DVT On Coaumadin INR therapeutic Mild Ascending Thoracic Aortic Aneurysm: FU as outpatient GERD: Continue Pepcid DVT Px: on Coumadin Code Status Full Code Total Time Total Time Spent Total Time Spent (In Minutes): 39 minutes Total Time Includes: Examination of the Patient, Discharge Planning, Medication Reconciliation and Other Discharge Plan Discharge Items Patient Disposition: Home - Self-Care Reason For Visit: COPD EXCERBATION Discharge Diagnosis: Nocturnal hypoxemia Hypokalemia Hypomagnesemia RASHEL on CKD III Possible Mild COPD Discharge Goals: Decrease discomfort, Improve disease control and Improve function Activity: Resume your previous activity Non-emergency contact: Primary Care Provider and Buffing Wheel Operator Call non-emergency contact if: you have any medication questions, your symptoms worsen, your pain is not controlled, your pain is worsening, your pain is unusual for you, your pain is concerning for you and you have a fever Diet: Heart Healthy Addtl Provider Instructions: Follow up with your PCP on Apr 03, 2018 at 11:00AM Follow up with your Buffing Wheel Operator on Apr 11, 2018 at 12:45AM Follow up with [facility] for adjustment of your Coumadin dosing Use Oxygen 2 liters via Nasal Cannula at bedtime as advised Get Sleep Study and Lung function tests as outpatient as advised Seek immediate medical attention if your symptoms reoccur or worsen Prescriptions: Continue latanoprost [Xalatan] 0.005 % drops 1 drops OP QPM RF: 0 diltiazem HCl [Tiazac] 180 mg capsule,extended release 24 hr 180 mg PO DAILY RF: 0 aspirin [Adult Low Dose Aspirin] 81 mg tablet,delayed release (DR/EC) 81 mg PO DAILY RF: 0 tramadol 50 mg tablet 50 mg PO Q6H RF: 0 acetaminophen [Tylenol Extra Strength] 500 mg tablet 500 mg PO Q4H PRN (Reason: Fever Or Pain) RF: 0 warfarin [Coumadin] 6 mg tablet 6 mg PO QPM RF: 0 famotidine [Pepcid] 20 mg tablet 20 mg PO DAILY PRN (Reason: Indigestion) RF: 0 ferrous sulfate 325 mg (65 mg iron) tablet 325 mg PO DAILY RF: 0 docusate sodium [Colace] 100 mg capsule 100 mg PO BID RF: 0 ondansetron 4 mg tablet,disintegrating 4 mg PO Q6H PRN (Reason: Nausea) RF: 0 flsiszbe-lfthdfx-ewen-lutein tablet 1 tab PO DAILY RF: 0 calcium carbonate-vitamin D3 500 mg(1,250mg) -600 unit tablet,chewable 1 tab PO DAILY RF: 0 gabapentin 300 mg capsule 300 mg PO TID Qty: 90 RF: 2 furosemide [Lasix] 40 mg Tablet 40 mg PO DAILY RF: 0 lisinopril 5 mg Tablet 5 mg PO DAILY RF: 0 sennosides-docusate sodium [Senokot-S] 8.6-50 mg Tablet 1 tab PO HS RF: 0 Stand-Alone Forms: [facility] Discharge Orders: Discharge Order (Routine); Ordered 03/31/18 Ordered By: Josesito Valera Admission Data Admit Date/Time: 03/29/18 17:38 Attending Provider: Josesito Valera Admit Provider: Josesito Valera Primary Care Provider: Jeremiah Alvarado Other Providers: Julien Baez Service: Telemetry Medical Other Interventions: Discharge Summary Assessment (RN) Last Done: 03/31/18 16:13 Pending Studies at Discharge: No
[2018-03-31] MEDS: WARFARIN SOD 4 MG TAB PO SCH (16:34)
--- NOTE | 2018-03-31 16:49 | Communication Note ---
Date of Service: March 31, 2018 Updated by Case management that patient would need Insurance Auth for setting up home oxygen. Patient willing stay till tomorrow until home oxygen is arranged.
[2018-03-31] MEDS: LATANOPROST 0.005% OP SOLN 2.5 ML BTL OP SCH (20:43)
[2018-03-31] MEDS: CALCIUM 600MG + VIT D 400 IU TAB PO SCH (20:44)
[2018-03-31] MEDS: DOCUSATE SODIUM/SENNA 50/8.6MG TAB PO SCH (20:44)
[2018-03-31] MEDS: TRAMADOL HCL 50 MG TABLET PO PRN (22:45)
[2018-04-01 06:31] LABS: INR 2.8 (0.9-1.1); Prothrombin Time 26.8 Seconds (9.0-12.0)
[2018-04-01] MEDS: ALBUT/IPRATROP 3MG/0.5MG NEB 3 ML VIAL NEB SCH ×3 (07:02→15:05)
[2018-04-01] MEDS: LISINOPRIL 5 MG TAB PO SCH (08:27)
[2018-04-01] MEDS: FERROUS SULFATE 325 MG TAB PO SCH (08:27)
[2018-04-01] MEDS: DOCUSATE SODIUM 100 MG CAP PO SCH (08:27)
[2018-04-01] MEDS: GABAPENTIN 300 MG CAP PO SCH ×2 (08:27→13:49)
[2018-04-01] MEDS: dilTIAZem ER 180 MG CAPCR PO SCH (08:27)
[2018-04-01] MEDS: ASPIRIN 81 MG ECTAB PO SCH (08:27)
[2018-04-01] MEDS: predniSONE 20 MG TAB PO SCH (08:27)
[2018-04-01] MEDS: FUROSEMIDE 40 MG TAB PO SCH (08:27)
[2018-04-01] MEDS: TRAMADOL HCL 50 MG TABLET PO PRN (08:31)
--- NOTE | 2018-04-01 13:36 | Discharge Summary ---
Date of Service April 01, 2018 Admission HPI Per Admitting Provider Patient is a 72 yr female with PMH of HTN, paroxysmal atrial fibrillation on Coumadin, hyperlipidemia, past tobacco use, chronic hyponatremia per records, H/ O septic arthritis of left hip with MSSA with multiple d�bridements, H/O PE, DVT , nocturnal hypoxia but currently not using oxygen, CKD III, Hypomagnesemia, COPD as per records and other problems presents with history of shortness of breath since this morning 3 AM. Patient initially thought shortness of breath is secondary to indigestion and took Pepcid which did not help. Patient continued to have shortness of breath and so came to ED for further evaluation. Patient received Solu-medrol and Nebs treatment in ER which improved her symptoms. Patient reports chronic cough with expectoration which is unchanged. She states she has not been eating well since a couple of days. Her Sats were low 90s when checked by EMT. Patient states having panic attack many years ago and currently denies any issues. Denies any history of chest pain, palpitations , dizziness, wheezing, fever, chills, headache, nausea, vomiting, abdominal pain , diarrhea, dysuria, recent change in medications. Discharge Data Allergies Allergy/AdvReac Type Severity Reaction Status Date / Time brimonidine Allergy Intermediate OTHER-SEE Verified 03/29/18 15:02 COMMENT ceftriaxone Allergy Intermediate RASH Verified 03/29/18 15:02 chlorhexidine Allergy Intermediate RASH Verified 03/29/18 15:02 vancomycin Allergy Intermediate red jez Verified 03/29/18 15:02 syndrome codeine Allergy Mild GI SYMPTOMS Verified 03/29/18 15:02 latex Allergy Mild RASH Verified 03/29/18 15:02 oxycodone Allergy Mild GI Verified 03/29/18 15:02 SYMPTOMS-TYL. W/CODEINE OK nickel Allergy Unknown RASH Verified 03/29/18 15:02 diphenhydramine AdvReac Intermediate Hyper Verified 03/29/18 15:02 Consultations 03/29/18 15:44 ED Decision to Admit Stat 03/29/18 18:01 Consult Case Management - Discharge Planning Routine Hospital Course (1) SOB (shortness of breath): Likely mild COPD Exacerbation DD: panic attack, Nocturnal hypoxemia Nocturnal Hypoxemia as per records--Currently not using Oxygen prior to admission Former Tobacco use Patient also is not on inhalers CXR:Chronic elevation of the right hemidiaphragm. Findings suggest emphysema. No focal infiltrate to suggest pneumonia. Influenza Screen: Negative Received IV solumedrol, bronchodilators in ED Pro calcitonin: normal Continue Nebs, Prednisone taper Oxygen support as needed Nocturnal Oximetry Study: Needs Oxygen at bedtime 2 step: Did not qualify for oxygen Troponin X 2: Negative ECHO:No regional wall motion abnormalities Will need Sleep Study and PFTs as outpatient No signs of volume overload Advised to follow up with Cardiology as outpatient given Grade II diastolic dysfunction Hypokalemia Hypomagnesemia Replace electrolytes as needed Monitor RASHEL on CKD III: Likely prerenal Resolved Resume Lasix Resume Lisinopril as able Received IV fluids Monitor renal function HTN: Continue Diltiazem, lisinopril P. Afib: Continue Diltiazem Continue Coumadin for anticoagulation Monitor PT/INR:2.8 H/O septic arthritis of left hip with MSSA H/O Avascular necrosis S/P multiple d�bridements Continue home medications Monitor H/O PE, DVT On Coaumadin INR therapeutic Mild Ascending Thoracic Aortic Aneurysm: FU as outpatient GERD: Continue Pepcid DVT Px: on Coumadin Code Status Full Code Discharge Plan Discharge Items Patient Disposition: Home - Self-Care Reason For Visit: COPD EXCERBATION Discharge Diagnosis: Nocturnal hypoxemia Hypokalemia Hypomagnesemia RASHEL on CKD III Possible Mild COPD Discharge Goals: Decrease discomfort, Improve disease control and Improve function Activity: Resume your previous activity Non-emergency contact: Primary Care Provider and Wreath Machine Operator Call non-emergency contact if: you have any medication questions, your symptoms worsen, your pain is not controlled, your pain is worsening, your pain is unusual for you, your pain is concerning for you and you have a fever Diet: Heart Healthy Addtl Provider Instructions: Follow up with your PCP on Apr 03, 2018 at 11:00AM Follow up with your Wreath Machine Operator on Apr 11, 2018 at 12:45AM Follow up with Coumadin Clinic for adjustment of your Coumadin dosing Use Oxygen 2 liters via Nasal Cannula at bedtime as advised Get Sleep Study and Lung function tests as outpatient as advised Seek immediate medical attention if your symptoms reoccur or worsen Prescriptions: Continue latanoprost [Xalatan] 0.005 % drops 1 drops OP QPM RF: 0 diltiazem HCl [Tiazac] 180 mg capsule,extended release 24 hr 180 mg PO DAILY RF: 0 aspirin [Adult Low Dose Aspirin] 81 mg tablet,delayed release (DR/EC) 81 mg PO DAILY RF: 0 tramadol 50 mg tablet 50 mg PO Q6H RF: 0 acetaminophen [Tylenol Extra Strength] 500 mg tablet 500 mg PO Q4H PRN (Reason: Fever Or Pain) RF: 0 warfarin [Coumadin] 6 mg tablet 6 mg PO QPM RF: 0 famotidine [Pepcid] 20 mg tablet 20 mg PO DAILY PRN (Reason: Indigestion) RF: 0 ferrous sulfate 325 mg (65 mg iron) tablet 325 mg PO DAILY RF: 0 docusate sodium [Colace] 100 mg capsule 100 mg PO BID RF: 0 ondansetron 4 mg tablet,disintegrating 4 mg PO Q6H PRN (Reason: Nausea) RF: 0 reqnmkit-hsbloho-myjy-lutein tablet 1 tab PO DAILY RF: 0 calcium carbonate-vitamin D3 500 mg(1,250mg) -600 unit tablet,chewable 1 tab PO DAILY RF: 0 gabapentin 300 mg capsule 300 mg PO TID Qty: 90 RF: 2 furosemide [Lasix] 40 mg Tablet 40 mg PO DAILY RF: 0 lisinopril 5 mg Tablet 5 mg PO DAILY RF: 0 sennosides-docusate sodium [Senokot-S] 8.6-50 mg Tablet 1 tab PO HS RF: 0 Stand-Alone Forms: [facility] Discharge Orders: Discharge Order (Routine); Ordered 03/31/18 Ordered By: Josesito Valera Admission Data Admit Date/Time: 03/29/18 17:38 Attending Provider: John Kim Admit Provider: Josesito Valera Primary Care Provider: Jeremiah Alvarado Other Providers: Julien Baez Service: Telemetry Medical Other Interventions: Discharge Summary Assessment (RN) Last Done: 03/31/18 16:13 Pending Studies at Discharge: No
[2018-04-01] MEDS: WARFARIN SOD 4 MG TAB PO SCH (15:50)
== END 2018-04-01 17:54 | disposition home or self-care (01) ==
LOC: ED 13:42 → 2N 17:15 → INTOOBSV 17:38 → SUATTDRO 17:38

== ENCOUNTER 2018-07-02 09:32 | Inpatient (IN) ==
[2018-07-02] MEDS ORDERED: SODIUM CHLORIDE 0.9% 500 ML IV SCH (10:15)
[2018-07-02] MEDS ORDERED: SODIUM CHLORIDE 0.9% 250 ML IV PRN ×3 (10:19→14:09)
--- NOTE | 2018-07-02 10:26 | XRay Report ---
XR chest 1V portable CLINICAL HISTORY: weakness COMPARISON STUDY: March 29, 2018 FINDINGS: There is elevation/eventration of the right hemidiaphragm with colonic interposition. The c ardiac and mediastinal contours remain stable. There is no acute parenchymal consolidation. There is no failure. There are no pleural effusions. Arthritic changes are present within the shoulders with e rosion of distal clavicles.[ IMPRESSION: 1. Stable elevation/eventration right hemidiaphragm with colonic interposition 2. No acute findings. Electronically signed by: Reggie Cota M.D. 07/02/2018 10:24 AM
[2018-07-02 10:53] LABS: Basophils # (auto) 0.02 K/uL (0-0.2); Basophils % (auto) 0.3 %; Eosinophils # (auto) 0.24 K/uL (0-0.5); Eosinophils % (auto) 3.7 %; Hematocrit (blood only) 21.1 % (37-47); Hemoglobin 7.3 g/dL (12.0-16.0); Immature Granulocytes # (auto) 0.02 K/uL (0.00-0.02); Immature Granulocytes % (auto) 0.3 %; Lymphocytes # (auto) 1.93 K/uL (1.2-3.4); Mean Corpuscular Hgb Conc 34.6 g/dL (32-36); Mean Corpuscular Volume 95.9 fL (80-100); Mean Platelet Volume 9.8 fL (7.4-10.4); Monocytes # (auto) 0.55 K/uL (0.11-0.59); Monocytes % (auto) 8.5 %; Neutrophils # (auto) 3.68 K/uL (1.4-6.5); Neutrophils % (auto) 57.2 %; Platelet Count 217 K/uL (130-400); RDW Coefficient of Variation 14.1 % (11.5-14.5); RDW Standard Deviation 48.1 fL (36.4-46.3); White Blood Count 6.44 K/uL (4.8-10.8)
[2018-07-02 11:09] LABS: RBC Morphology Unremarkable
[2018-07-02 11:11] LABS: INR 2.5 (0.9-1.1); Partial Thromboplastin Ratio 1.3; Partial Thromboplastin Time 34.1 Seconds (21.0-31.0); Prothrombin Time 24.2 Seconds (9.0-12.0)
[2018-07-02 11:15] LABS: Alanine Aminotransferase 19 U/L (12-78); Albumin Level 3.3 gm/dl (3.4-5.0); Aspartate Aminotransferase 16 U/L (15-37); Blood Urea Nitrogen 78 mg/dl (7-18); Calcium 8.9 mg/dl (8.5-10.1); Carbon Dioxide 23 mmol/L (21-32); Chloride 106 mmol/L (98-107); Creatinine Clr Calc Pharmacy 33.4 ml/min; Est GFR (African American) 48.7; Glucose 100 mg/dl (70-99); Magnesium 1.8 mg/dl (1.8-2.4); Potassium 3.4 mmol/L (3.5-5.1); Sodium 137 mmol/L (136-145)
[2018-07-02 11:26] LABS: Albumin Globulin Ratio 1.1 (0.9-2); Alkaline Phosphatase 73 U/L (45-117); Bilirubin,Total 0.2 mg/dl (0.2-1); Globulin 3.1 gm/dl (2.5-4.0); Total Protein 6.4 gm/dl (6.4-8.2); Troponin I < 0.015 ng/ml (0-0.045)
[2018-07-02] MEDS ORDERED: SODIUM CHLORIDE 0.9% 1000ML 500 ML IV ONE (11:36)
[2018-07-02] MEDS ORDERED: SODIUM CHLORIDE 0.9% 1000ML 1,000 ML IV SCH ×2 (11:45→14:09)
[2018-07-02] MEDS ORDERED: PHYTONADIONE 5 MG in SODIUM CHLORIDE 0.9% 50 ML IV ONE (12:14)
[2018-07-02] MEDS ORDERED: PANTOprazole 80 MG in DEXTROSE 5% 100 ML IV SCH (12:45)
[2018-07-02] MEDS ORDERED: POTASSIUM CHLORIDE 20 MEQ TABCR PO STA (12:48)
--- NOTE | 2018-07-02 13:11 | History & Physical Report ---
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 While in ED her H&H was noted to be 7.3/21.1, INR 2.5. INR on 06/27 was 4.9 She had elevated bun/cr at 78/1.28. CXR no acute abn and ecg revealed NSR. She remained hemodynamically stable. +FOBT She was ordered IVF but was hesitant to receive given that, "I did not take my Lasix today or yesterday I do not want to get volume overloaded." She declined 1L fluid bolus She was ordered to receive VIT K IV 5mg and PPI bolus/gtt. admit to PCU Transfuse 1 unit PRBC Continue PPI bolus/gtt monitor h/h q6h consult GI Stop warfarin and ASA hold lasix in setting of hypovolemia, monitor closely for volume overload (3) Acute kidney injury superimposed on chronic kidney disease: Baseline creatinine 1.29 with hx of CKD stage 3 BUN/creatinine 78 and 1.28 with a ratio of 61 Prerenal secondary to hypovolemia 1 unit PRBC ordered along with fluid resuscitation Patient is very reluctant to aggressive IVF resuscitation and refused 1 L fluid bolus in ED but is currently receiving 1 unit PRBC monitor bmp (4) Hypokalemia: replete monitor bmp (5) Hypertension: Patient actually with intermittent hypotension given anemia and hypovolemia Hold oral antihypertensives Patient's lisinopril was stopped on 07/01 at PCP secondary to hypotension (6) Atrial fibrillation: Continue diltiazem with parameters for rate/rhythm control Discontinue Coumadin in setting of acute GI bleed 5 mg of vitamin K was ordered in ED Repeat INR in a.m. (7) COPD (chronic obstructive pulmonary disease): No acute exacerbation Not on ICS/LABA or SONY former hx of tobacco abuse (8) Chronic low back pain: Continue gabapentin and tramadol (9) History of pulmonary embolism: Stop warfarin given GIB occurred in August 2017 after stopping warfarin for routine colonoscopy, tiny R PE (10) DVT prophylaxis: SCDs given probable GIB and new onset anemia Full Code Disposition: Discharge to home when able Follow-up: PCP Dr. Johnston upon discharge Patient was seen and examined in collaboration with Dr. Simms, please see addendum Attending Addendum: care coordinated with MARGARET Sousa notes please refer to her notes for full details, I agree with her notes patient seen and examined, records reviewed by myself as well on exam, patient seen resting in bed, comfortable not in distress feels somewhat better compared to admission still feels somewhat weak denies active dyspnea, chest pain, dizziness, palpitations no other symptoms VS noted and reviewed oriented x 3 , not in distress, speaks in sentences with no effort nor accessory muscle use normal rate, regular rhythm, no murmurs clear breath sounds bilaterally non distended, soft, nontender no bipedal edema, erythema, warmth no neuro deficits WBC 6.4 Hg 7.3 Crea 1.28 ASSESSMENT AND PLAN ANEMIA, LIKELY SECONDARY TO ACACUTE BLOOD LOSS HOLD ASA, Coumadin Vit K given at the ER GI consulted, for EGD tomorrow HYPOTENSION HOLD Lasix, Lisinopril monitor BP closely other diagnoses and plan of care as per MARGARET Sousa notes Velasquez Simms MD History of Present Illness Chief Complaint: Dizziness and low bp x 2 days. 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 Patient elicits approximately 1 week ago her grandchildren had a GI illness. She thought she contracted it as she had one episode of abdominal pain with diarrhea that his since subsided. She overall has felt ill, fatigued for the past week. Given her symptoms she opted to check her blood pressure 2 days ago which was 80/50. She also noticed lightheadedness and dizziness when hill ing position and going from sitting to standing. Further she elicits ANNA. Given symptoms she presented to PCP yesterday who recommended to stop lisinopril and hold Lasix for now. Lab work was ordered which revealed a hemoglobin and hematocrit of 7.7 and 23.4 on 07/01. Given those results she was recommended to seek ED. Outside of diarrhea 1 week ago she denies any other GI complaints. She denies fever, chills, sweats, chest pain, shortness breath at rest, palpitation, nausea, vomiting, abdominal pain, dysuria, hematuria, increase in urgency or frequency with urination. She denies bright red blood in stool. She does list to having dark tarry stools but is on iron and, "did not think anything of it. States she has been on iron since 2017 after she was found to be anemic. Overall her appetite has been decreased but she has been tolerating p.o. intake. Her last colonoscopy was 02/04/2018 which revealed polyps x2 as well as known sigmoid diverticulosis. She denies history of GI bleeding despite being on Coumadin for prior EGD. While in ED her H&H was noted to be 7.3/21.1, INR 2.5. INR on 06/27 was 4.9 She had elevated bun/cr at 78/1.28. CXR no acute abn and ecg revealed NSR. She remained hemodynamically stable. She was ordered IVF but was hesitant to receive given that, "I did not take my Lasix today I do not want to get volume overloaded." She received VIT K IV 5mg and was started on PPI bolus/gtt. Allergies Allergy/AdvReac Type Severity Reaction Status Date / Time brimonidine Allergy Intermediate OTHER-SEE Verified 07/02/18 10:23 COMMENT ceftriaxone Allergy Intermediate RASH Verified 07/02/18 10:23 chlorhexidine Allergy Intermediate RASH Verified 07/02/18 10:23 vancomycin Allergy Intermediate red jez Verified 07/02/18 10:23 syndrome codeine Allergy Mild GI SYMPTOMS Verified 07/02/18 10:23 latex Allergy Mild RASH Verified 07/02/18 10:23 oxycodone Allergy Mild GI Verified 07/02/18 10:23 SYMPTOMS-TYL. W/CODEINE OK nickel Allergy Unknown RASH Verified 07/02/18 10:23 diphenhydramine AdvReac Intermediate Hyper Verified 07/02/18 10:23 Home Medications Home Medications Medication Instructions Recorded Confirmed Type acetaminophen 500 mg tablet 500 mg PO Q4H PRN 12/30/17 07/02/18 History aspirin 81 mg tablet,delayed 81 mg PO DAILY 12/30/17 07/02/18 History release calcium carbonate-vitamin D3 500 2 tab PO DAILY tab 12/30/17 07/02/18 History mg(1,250 mg)-600 unit chewable tablet diltiazem ER 180 mg capsule,24 180 mg PO DAILY 12/30/17 07/02/18 History hr,extended release docusate sodium 100 mg capsule 100 mg PO BID 12/30/17 07/02/18 History famotidine 20 mg tablet 20 mg PO DAILY PRN 12/30/17 07/02/18 History ferrous sulfate 325 mg (65 mg 325 mg PO DAILY tab 12/30/17 07/02/18 History iron) tablet mzkkinqd-acpxuck-pbep-lutein tablet 1 tab PO DAILY tab 12/30/17 07/02/18 History ondansetron 4 mg disintegrating 4 mg PO Q6H PRN tab 12/30/17 07/02/18 History tablet furosemide [Lasix] 40 mg PO DAILY 03/29/18 07/02/18 History sennosides-docusate sodium 1 tab PO HS 03/29/18 07/02/18 History [Senokot-S] tramadol 50 mg tablet 50 mg PO Q6H PRN #90 tab 05/19/18 07/02/18 Rx gabapentin 300 mg capsule 300 mg PO TID #90 cap 06/03/18 07/02/18 Rx warfarin 4 mg tablet 4 mg PO .COMPLEX 06/17/18 07/02/18 History warfarin 6 mg tablet 6 mg PO .COMPLEX tab 06/17/18 07/02/18 History travoprost [Travatan Z] 1 drp OPHTHALMIC (EYE) PM 07/02/18 07/02/18 History Past Med/Surg History Medical History Sigmoid diverticulosis (Chronic) History of pulmonary embolism (Chronic) Glaucoma (Chronic) History of bacteremia (Chronic) MSSA Asthma (Chronic) COPD (chronic obstructive pulmonary disease) (Chronic) Hypertension (Chronic) Chronic low back pain (Chronic) Lumbar disc disease (Chronic) Dyslipidemia (Chronic) Atrial fibrillation (Chronic) Anemia (Chronic) Hyponatremia (Chronic) CKD (chronic kidney disease), stage III (Chronic) AVN (avascular necrosis of bone) (Chronic) Atrial fibrillation (Chronic) Kidney disease (Chronic) Osteoarthritis (Chronic) History of pulmonary embolism (Resolved) Osteomyelitis (Resolved) Septic arthritis (Resolved) Avascular necrosis of bone Hypertension Osteoarthritis Pulmonary embolism Surgical History History of colonoscopy with polypectomy (Chronic) History of hip surgery (Resolved) S/P inguinal hernia repair (Chronic) S/P epidural steroid injection (Chronic) History of incision and drainage (Resolved) left hip History of surgery removal of left acetabulum Family History Father Esophageal cancer Social History Preferred Language: Spanish Communication Ability: Effective Beliefs That Will Affect Care: None marital status: Current Living Situation: Family 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 Physical Exam Physical Exam: Gen: WD/WN, F, NAD, sitting up in bed, pleasant but flat affected, conversing easily Head: Normocephalic, Atraumatic Eyes: Sclera normal, no conjunctival injection, PERRLA, EOMI ENT: Gross hearing intact, normal pharynx, mucous membranes moist Neck: supple, no adenopathy, No JVD, no bruit, Resp: Clear to auscultation b/l, no wheeze, rales, rhonchi. Normal insp/exp effort, no accessory muscle use CV: Regular rate, regular rhythm, 1/6 RUEL noted RUSB, no rub, gallop, or ectopy Abd: +BS x 4, soft, nontender, nondistended Musculoskeletal: moves extremities active rom x 4, strength intact, good electric organ assembler and checker strength Extremities: No edema bilaterally, pedal pulses +2 and equal Skin: warm, moist, no rash, negative turgor, cap refill < 2sec, + ecchymosis to b/l lower ext Neuro: Alert and oriented x 3, speech normal, good mood/affect, cran nerve 2-12 intact grossly : deferred Results & Data Vital Signs (Past 12 Hours) Vital Signs Temp Pulse Pulse Resp BP BP Pulse Ox 07/02/18 10:10 99 H 96 H 15 118/66 100 07/02/18 09:37 36.7 C 100 H 20 112/70 96 Laboratory Results Short CBC 07/02/18 Range/Units 10:37 WBC 6.44 (4.8-10.8) K/uL Hgb 7.3 L (12.0-16.0) g/dL Hct 21.1 L (37-47) % Plt Count 217 (130-400) K/uL BMP 07/02/18 10:37 Sodium 137 Potassium 3.4 L Chloride 106 Carbon Dioxide 23 BUN 78 H Creatinine 1.28 H Glucose 100 H Calcium 8.9 Cardiac Enzymes 07/02/18 Range/Units 10:37 Troponin I < 0.015 (0-0.045) ng/ml Liver Function 07/02/18 Range/Units 10:37 Total Bilirubin 0.2 (0.2-1) mg/dl AST 16 (15-37) U/L ALT 19 (12-78) U/L Alkaline Phosphatase 73 (45-117) U/L Albumin 3.3 L (3.4-5.0) gm/dl Diagnostic Findings CXR: IMPRESSION: 1. Stable elevation/eventration right hemidiaphragm with colonic interposition 2. No acute findings. Medications Administered Discontinued Medications Sodium Chloride (Nss) 500 mls @ 999 mls/hr IV .Q31M CAN Stop: 07/02/18 10:45 Last Admin: 07/02/18 12:17 Dose: Not Given Documented by: [id number] Sodium Chloride (Nss 1000ml) 500 mls @ 999 mls/hr IV .Q31M ONE Stop: 07/02/18 12:06 Last Infusion: 07/02/18 12:57 Dose: 0 mls/hr Documented by: [id number] Admin: 07/02/18 12:16 Dose: 999 mls/hr Documented by: [id number] ECG Rhythm: normal sinus Findings: + 1st degree AV block and + PAC Code Status & VTE Plan Code Status Full Code VTE Prophylaxis Plan VTE Prophylaxis will be ordered: Yes Reason for no VTE drug order: Contraindicated (1) GI bleed GI bleed type/associated pathology: unspecified gastrointestinal hemorrhage type Qualified Code(s): K92.2 - Gastrointestinal hemorrhage, unspecified (2) Atrial fibrillation Atrial fibrillation type: paroxysmal Qualified Code(s): I48.0 - Paroxysmal atrial fibrillation (3) Hypertension Hypertension type: essential hypertension Qualified Code(s): I10 - Essential (primary) hypertension
[2018-07-02] MEDS: PANTOprazole 40 MG in DEXTROSE 5% 100 ML IV SCH ×2 (13:37→19:18)
[2018-07-02] MEDS ORDERED: ONDANSETRON INJ 2 MG/ML 2 ML VIAL IV PRN (14:09)
[2018-07-02] MEDS ORDERED: MAGNESIUM HYDROXIDE SUSP 30 ML UDC PO PRN (14:09)
[2018-07-02] MEDS ORDERED: POLYETHYLENE (MIRALAX) 17 GM PACK PO PRN (14:09)
[2018-07-02] MEDS ORDERED: ACETAMINOPHEN 325 MG TAB PO PRN (14:09)
[2018-07-02] MEDS ORDERED: ALUMINUM/MAGNESIUM SUSP 30 ML UDC PO PRN (14:09)
[2018-07-02] MEDS ORDERED: FAMOTIDINE 20 MG TAB PO PRN (14:09)
--- NOTE | 2018-07-02 14:27 | Gastrointestinal Consultation ---
Date of Consultation July 02, 2018 Assessment & Plan (1) Anemia: (2) GI bleed: Pt is a 72 y/o female presented w symptomatic anemia (Hgb 7, baseline 13), stools black and previously a bit tarry appearing, FOBT positive. She had been on Coumadin for hx of PE, Afib, last week INR around 5, currently 2.5. Denies hx of NSAIDs uses. Pt never had EGD evaluation. Hx of colonoscopies in 2012, 2018 w findings of diverticulosis and adenoma polyp. - Agree w blood tranfusion, monitor H/H closely. - Ok for CL diet but NPO after midnight - EGD tomorrow to r/o source of UGI bleed - PPI bolus and gtt - Reverse INR and repeat coag labs tomorrow Supervising Physician Co-Signing Physician Notes I have personally seen and examined the patient with TAVO Reyes on 07/02/2018. Her note reflects my exam and findings. I agree with her impression and plan. Most c/w GI bleeding from ASA use and overanticoagulation. Follow H/H and PPI Tx. Will arrange upper endoscopy. Aiden Campos M.D. History of Present Illness Reason for Consultation: UGI bleed Requesting Physician: Dr. Velasquez Simms Attending Physician: Dr. Aiden Campos History of Present Illness Pt is a 72 y/o female w PMHx noted below who was sent to ED after noted to have anemia noted on outpt labs. She has hx of Afib, PE on Coumadin. Last Go checked INR at home and it was around 5, told to hold a dose of Coumadin and then resumed normal dose. She noted that some family member had "GI bug" symptoms. She had mild nausea, no vomiting, diarrhea. Feels weak. She went to PCP's office yesterday, noted BP lower in 80s/50s. CBC and BMP obtained which resulted today and showed Hgb down in 7s, baseline 13. BUN/Cr also up from baseline. Repeat labs here showed H/H 7.3/21.1, PT/INR 24.2/2.5. She was given Vit K 5mg IV. BUN/Cr 78/1.2. LFTs normal. CXR w/o acute findings. She denies any signs of large hematomas, bleeding wounds, hematuria, or vaginal bleeding. She does note she is on iron supplements and stools have always been black but last week appears a bit tarry. Subsequent BM more formed but also black. She does have intermittent hematochezia at times related to hemorrhoids. Stools tested FOBT positive. Hx of colonoscopy in 2012, 2018 w diverticulosis and adenoma polyps. Hx of tobacco use but had quit. ETOh 1-2 servings (wine, mixed drinks). Father w hx of esophageal ca. Denies any NSAIDs. Allergies Allergy/AdvReac Type Severity Reaction Status Date / Time brimonidine Allergy Intermediate OTHER-SEE Verified 07/02/18 10:23 COMMENT ceftriaxone Allergy Intermediate RASH Verified 07/02/18 10:23 chlorhexidine Allergy Intermediate RASH Verified 07/02/18 10:23 vancomycin Allergy Intermediate red jez Verified 07/02/18 10:23 syndrome codeine Allergy Mild GI SYMPTOMS Verified 07/02/18 10:23 latex Allergy Mild RASH Verified 07/02/18 10:23 oxycodone Allergy Mild GI Verified 07/02/18 10:23 SYMPTOMS-TYL. W/CODEINE OK nickel Allergy Unknown RASH Verified 07/02/18 10:23 diphenhydramine AdvReac Intermediate Hyper Verified 07/02/18 10:23 Home Medications Home Medications Medication Instructions Recorded Confirmed Type acetaminophen 500 mg tablet 500 mg PO Q4H PRN 12/30/17 07/02/18 History aspirin 81 mg tablet,delayed 81 mg PO DAILY 12/30/17 07/02/18 History release calcium carbonate-vitamin D3 500 2 tab PO DAILY tab 12/30/17 07/02/18 History mg(1,250 mg)-600 unit chewable tablet diltiazem ER 180 mg capsule,24 180 mg PO DAILY 12/30/17 07/02/18 History hr,extended release docusate sodium 100 mg capsule 100 mg PO BID 12/30/17 07/02/18 History famotidine 20 mg tablet 20 mg PO DAILY PRN 12/30/17 07/02/18 History ferrous sulfate 325 mg (65 mg 325 mg PO DAILY tab 12/30/17 07/02/18 History iron) tablet nfrffefy-lziivzf-qsyy-lutein tablet 1 tab PO DAILY tab 12/30/17 07/02/18 H istory ondansetron 4 mg disintegrating 4 mg PO Q6H PRN tab 12/30/17 07/02/18 History tablet furosemide [Lasix] 40 mg PO DAILY 03/29/18 07/02/18 History sennosides-docusate sodium 1 tab PO HS 03/29/18 07/02/18 History [Senokot-S] tramadol 50 mg tablet 50 mg PO Q6H PRN #90 tab 05/19/18 07/02/18 Rx gabapentin 300 mg capsule 300 mg PO TID #90 cap 06/03/18 07/02/18 Rx warfarin 4 mg tablet 4 mg PO .COMPLEX 06/17/18 07/02/18 History warfarin 6 mg tablet 6 mg PO .COMPLEX tab 06/17/18 07/02/18 History travoprost [Travatan Z] 1 drp OPHTHALMIC (EYE) PM 07/02/18 07/02/18 History Patient History Medical History Sigmoid diverticulosis (Chronic) History of pulmonary embolism (Chronic) Glaucoma (Chronic) History of bacteremia (Chronic) MSSA Asthma (Chronic) COPD (chronic obstructive pulmonary disease) (Chronic) Hypertension (Chronic) Chronic low back pain (Chronic) Lumbar disc disease (Chronic) Dyslipidemia (Chronic) Atrial fibrillation (Chronic) Anemia (Chronic) Hyponatremia (Chronic) CKD (chronic kidney disease), stage III (Chronic) AVN (avascular necrosis of bone) (Chronic) Atrial fibrillation (Chronic) Kidney disease (Chronic) Osteoarthritis (Chronic) History of pulmonary embolism (Resolved) Osteomyelitis (Resolved) Septic arthritis (Resolved) Avascular necrosis of bone Hypertension Osteoarthritis Pulmonary embolism Surgical History History of colonoscopy with polypectomy (Chronic) History of hip surgery (Resolved) S/P inguinal hernia repair (Chronic) S/P epidural steroid injection (Chronic) History of incision and drainage (Resolved) left hip History of surgery removal of left acetabulum Family History Father Esophageal cancer Social History Preferred Language: Tajik Communication Ability: Effective Beliefs That Will Affect Care: None marital status: Current Living Situation: Family 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 Other Information That Helps Us Care for You: No Feels Safe at Home: Yes Safety Concerns: Feels Safe At This Time Smoking Status: Former smoker Second Hand Exposure: No Hx Alcohol Use: Yes Alcohol type: wine Alcohol Intake Frequency Comment: 2 drinks daily Hx Substance Use: No Review of Systems Review of Systems: All systems reviewed & are unremarkable except as noted in HPI & below Physical Exam Constitutional: WD/WN, vitals as above well groomed, cooperative and comfortable Eyes: PERRL, conjunctivae normal, anicteric sclerae ENMT: external ear and nose normal, oropharynx normal Respiratory: normal respiratory effort, lungs clear to auscultation Cardiovascular: RRR, no murmur, no edema Gastrointestinal (Abdomen): normal bowel sounds, soft, nontender, no hepatosplenomegaly Skin: no rashes, warm and dry no jaundice Neurologic: Motor/Sensory: no asterixis Psychiatric: A+Ox3, euthymic affect Lymphatic: no lymphedema Results & Data Vital Signs (Past 12 Hours) Vital Signs Temp Pulse Pulse Resp BP BP Pulse Ox 07/02/18 13:02 81 10 L 96 07/02/18 13:00 37.2 C 82 9 L 102/60 98 07/02/18 12:59 79 12 100/54 L 100 07/02/18 12:54 37 C 82 16 92/48 L 97 07/02/18 12:50 36.9 C 79 18 100/64 100 07/02/18 12:47 84 7 L 92/48 L 99 07/02/18 12:40 81 15 07/02/18 12:30 82 14 07/02/18 12:20 85 11 L 07/02/18 12:10 87 14 07/02/18 12:00 84 9 L 07/02/18 11:50 90 17 07/02/18 11:40 89 8 L 07/02/18 11:30 96 H 20 07/02/18 11:20 94 H 8 L 07/02/18 11:10 89 10 L 07/02/18 11:00 94 H 18 98 07/02/18 10:50 95 H 13 96 07/02/18 10:40 110 H 20 07/02/18 10:30 95 H 8 L 07/02/18 10:20 100 H 14 07/02/18 10:16 102 H 13 07/02/18 10:14 102 H 12 116/64 98 07/02/18 10:13 101 H 7 L 121/61 99 07/02/18 10:10 99 H 96 H 15 118/66 100 07/02/18 09:37 36.7 C 100 H 20 112/70 96 Laboratory Results Laboratory Results - last 72 hr 07/02/18 07/02/18 07/02/18 10:37 10:37 10:37 WBC 6.44 RBC 2.20 L Hgb 7.3 L Hct 21.1 L MCV 95.9 MCH 33.2 MCHC 34.6 RDW Std Deviation 48.1 H RDW Coeff of Jimmy 14.1 Plt Count 217 MPV 9.8 Immature Gran % (Auto) 0.3 Neut % (Auto) 57.2 Lymph % (Auto) 30.0 Pope % (Auto) 8.5 Eos % (Auto) 3.7 Baso % (Auto) 0.3 Immature Gran # (Auto) 0.02 Neut # (Auto) 3.68 Lymph # (Auto) 1.93 Pope # (Auto) 0.55 Eos # (Auto) 0.24 Baso # (Auto) 0.02 RBC Morphology Unremarkable PT 24.2 H INR 2.5 H APTT 34.1 H PTT Ratio 1.3 Sodium 137 Potassium 3.4 L Chloride 106 Carbon Dioxide 23 Anion Gap 8.0 BUN 78 H Creatinine 1.28 H Est Cr Clr Drug Dosing 33.4 Est GFR ( Amer) 48.7 Est GFR (Non-Af Amer) 42.0 BUN/Creatinine Ratio 61.0 H Glucose 100 H Calcium 8.9 Magnesium 1.8 Total Bilirubin 0.2 AST 16 ALT 19 Alkaline Phosphatase 73 Troponin I < 0.015 Total Protein 6.4 Albumin 3.3 L Globulin 3.1 Albumin/Globulin Ratio 1.1 TSH 2.550 Blood Type Antibody Screen Crossmatch 07/02/18 10:37 WBC RBC Hgb Hct MCV MCH MCHC RDW Std Deviation RDW Coeff of Jimmy Plt Count MPV Immature Gran % (Auto) Neut % (Auto) Lymph % (Auto) Pope % (Auto) Eos % (Auto) Baso % (Auto) Immature Gran # (Auto) Neut # (Auto) Lymph # (Auto) Pope # (Auto) Eos # (Auto) Baso # (Auto) RBC Morphology PT INR APTT PTT Ratio Sodium Potassium Chloride Carbon Dioxide Anion Gap BUN Creatinine Est Cr Clr Drug Dosing Est GFR ( Amer) Est GFR (Non-Af Amer) BUN/Creatinine Ratio Glucose Calcium Magnesium Total Bilirubin AST ALT Alkaline Phosphatase Troponin I Total Protein Albumin Globulin Albumin/Globulin Ratio TSH Blood Type B Positive Antibody Screen NEGATIVE Crossmatch See Detail (1) GI bleed GI bleed type/associated pathology: unspecified gastrointestinal hemorrhage type Qualified Code(s): K92.2 - Gastrointestinal hemorrhage, unspecified
--- NOTE | 2018-07-02 16:18 | Emergency Department Note ---
Entered by Dulce Bal acting as a scribe for Brigid Viera MD History of Present Illness General Chief complaint: Hypotension Stated complaint: WEAKNESS, HYPOTNESION Time Seen by Provider: 07/02/18 09:54 Source: patient History of Present Illness Provider complaint: abnormal blood work Onset (ago): hour(s) (today) Location: left and right Quality: + other (high WBC, low CBC) Associated symptoms: + denies other symptoms (denies urinary symptoms and abdominal pain) and + other (dizziness, one episode of diarrhea, hypotensive); no fever/chills The patient is a 72 year old female who presents to the Emergency Department with complaints of abnormal blood work today. The patient states that her white count was high and that she had a low CBC. She reports a history of kidney disease. The patient states that she felt dizzy over the last week and did have an episode of diarrhea. She states that she has also been hypotensive. The patient states that she was at her doctor's office yesterday and states that her systolic pressure was under 100 and states that her blood pressure also dropped when she stood up. The patient denies having fevers and chills. The patient also denies abdominal pain and urinary symptoms. She states that she is on Coumadin and states that her last INR was 5 and that her Coumadin was held 5 days ago. Home Medications Home Medications Medication Instructions Recorded Confirmed Type acetaminophen 500 mg tablet 500 mg PO Q4H PRN 12/30/17 07/02/18 History calcium carbonate-vitamin D3 500 2 tab PO DAILY tab 12/30/17 07/02/18 History mg(1,250 mg)-600 unit chewable tablet diltiazem ER 180 mg capsule,24 180 mg PO DAILY 12/30/17 07/02/18 History hr,extended release docusate sodium 100 mg capsule 100 mg PO BID 12/30/17 07/02/18 History famotidine 20 mg tablet 20 mg PO DAILY PRN 12/30/17 07/02/18 History ferrous sulfate 325 mg (65 mg 325 mg PO DAILY tab 12/30/17 07/02/18 History iron) tablet ybmxlhoc-oeektnx-lbql-lutein tablet 1 tab PO DAILY tab 12/30/17 07/02/18 History ondansetron 4 mg disintegrating 4 mg PO Q6H PRN tab 12/30/17 07/02/18 History tablet sennosides-docusate sodium 1 tab PO HS 03/29/18 07/02/18 History [Senokot-S] tramadol 50 mg tablet 50 mg PO Q6H PRN #90 tab 05/19/18 07/02/18 Rx gabapentin 300 mg capsule 300 mg PO TID #90 cap 06/03/18 07/02/18 Rx warfarin 4 mg tablet 4 mg PO .COMPLEX 06/17/18 07/02/18 History warfarin 6 mg tablet 6 mg PO .COMPLEX tab 06/17/18 07/02/18 History Travatan Z 1 drp OPHTHALMIC (EYE) PM 07/02/18 07/02/18 History pantoprazole 40 mg PO QAM 30 Days #30 tab 07/04/18 Rx Allergies Allergy/AdvReac Type Severity Reaction Status Date / Time brimonidine Allergy Intermediate OTHER-SEE Verified 07/02/18 10:23 COMMENT ceftriaxone Allergy Intermediate RASH Verified 07/02/18 10:23 chlorhexidine Allergy Intermediate RASH Verified 07/02/18 10:23 vancomycin Allergy Intermediate red jez Verified 07/02/18 10:23 syndrome codeine Allergy Mild GI SYMPTOMS Verified 07/02/18 10:23 latex Allergy Mild RASH Verified 07/02/18 10:23 oxycodone Allergy Mild GI Verified 07/02/18 10:23 SYMPTOMS-TYL. W/CODEINE OK nickel Allergy Unknown RASH Verified 07/02/18 10:23 diphenhydramine AdvReac Intermediate Hyper Verified 07/02/18 10:23 Past Med/Surg History Medical History Sigmoid diverticulosis (Chronic) History of pulmonary embolism (Chronic) Glaucoma (Chronic) History of bacteremia (Chronic) MSSA Asthma (Chronic) COPD (chronic obstructive pulmonary disease) (Chronic) Hypertension (Chronic) Chronic low back pain (Chronic) Lumbar disc disease (Chronic) Dyslipidemia (Chronic) Atrial fibrillation (Chronic) Anemia (Chronic) Hyponatremia (Chronic) CKD (chronic kidney disease), stage III (Chronic) AVN (avascular necrosis of bone) (Chronic) Atrial fibrillation (Chronic) Kidney disease (Chronic) Osteoarthritis (Chronic) History of pulmonary embolism (Resolved) Osteomyelitis (Resolved) Septic arthritis (Resolved) Avascular necrosis of bone Hypertension Osteoarthritis Pulmonary embolism Surgical History History of colonoscopy with polypectomy (Chronic) History of hip surgery (Resolved) S/P inguinal hernia repair (Chronic) S/P epidural steroid injection (Chronic) History of incision and drainage (Resolved) left hip History of surgery removal of left acetabulum Family History Father Esophageal cancer Social History Preferred Language: Maori Communication Ability: Effective Beliefs That Will Affect Care: None marital status: Current Living Situation: Family 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 and A total of 10 systems reviewed and were otherwise negative Physical Exam Vital Signs Vital Signs - 24 hr 07/02/18 09:37 07/02/18 10:10 07/02/18 10:13 Temperature 36.7 C Temperature Source Oral Sepsis Recent Fever Within 48 Hours No Sepsis Action Taken by Nursing No Action Required Pulse Rate - Lying 98 H Pulse Rate - Sitting 102 H Pulse Rate - Standing 104 H Pulse Rate 100 H 99 H 101 H Pulse Rate [Apical] 96 H Pulse Rate from SpO2 Sensor 100 H Pulse Rhythm Pulse Strength Respiratory Rate 20 15 7 L Respiratory Effort / Characteristics Non-Labored Non-Labored Respiratory Depth Normal Normal Blood Pressure - Lying 121/61 Blood Pressure - Sitting 116/64 Blood Pressure- Standing 124/69 Blood Pressure 112/70 121/61 Blood Pressure [Left Arm] 118/66 Blood Pressure Mean 84 81 Blood Pressure Mean [Left Arm] 83 Blood Pressure Position Sitting Blood Pressure Position [Left Arm] Lying Pulse Oximetry 96 100 99 Oxygen Delivery Method Room Air Oxygen Flow Rate 07/02/18 10:14 07/02/18 10:16 07/02/18 10:20 Temperature Temperature Source Sepsis Recent Fever Within 48 Hours Sepsis Action Taken by Nursing Pulse Rate - Lying Pulse Rate - Sitting Pulse Rate - Standing Pulse Rate 102 H 102 H 100 H Pulse Rate [Apical] Pulse Rate from SpO2 Sensor 103 H Pulse Rhythm Pulse Strength Respiratory Rate 12 13 14 Respiratory Effort / Characteristics Respiratory Depth Blood Pressure - Lying Blood Pressure - Sitting Blood Pressure- Standing Blood Pressure 116/64 Blood Pressure [Left Arm] Blood Pressure Mean 81 Blood Pressure Mean [Left Arm] Blood Pressure Position Blood Pressure Position [Left Arm] Pulse Oximetry 98 Oxygen Delivery Method Oxygen Flow Rate 07/02/18 10:30 07/02/18 10:40 07/02/18 10:50 Temperature Temperature Source Sepsis Recent Fever Within 48 Hours Sepsis Action Taken by Nursing Pulse Rate - Lying Pulse Rate - Sitting Pulse Rate - Standing Pulse Rate 95 H 110 H 95 H Pulse Rate [Apical] Pulse Rate from SpO2 Sensor 93 H Pulse Rhythm Pulse Strength Respiratory Rate 8 L 20 13 Respiratory Effort / Characteristics Respiratory Depth Blood Pressure - Lying Blood Pressure - Sitting Blood Pressure- Standing Blood Pressure Blood Pressure [Left Arm] Blood Pressure Mean Blood Pressure Mean [Left Arm] Blood Pressure Position Blood Pressure Position [Left Arm] Pulse Oximetry 96 Oxygen Delivery Method Oxygen Flow Rate 07/02/18 11:00 07/02/18 11:10 07/02/18 11:20 Temperature Temperature Source Sepsis Recent Fever Within 48 Hours Sepsis Action Taken by Nursing Pulse Rate - Lying Pulse Rate - Sitting Pulse Rate - Standing Pulse Rate 94 H 89 94 H Pulse Rate [Apical] Pulse Rate from SpO2 Sensor 94 H Pulse Rhythm Pulse Strength Respiratory Rate 18 10 L 8 L Respiratory Effort / Characteristics Respiratory Depth Blood Pressure - Lying Blood Pressure - Sitting Blood Pressure- Standing Blood Pressure Blood Pressure [Left Arm] Blood Pressure Mean Blood Pressure Mean [Left Arm] Blood Pressure Position Blood Pressure Position [Left Arm] Pulse Oximetry 98 Oxygen Delivery Method Oxygen Flow Rate 07/02/18 11:30 07/02/18 11:40 07/02/18 11:50 Temperature Temperature Source Sepsis Recent Fever Within 48 Hours Sepsis Action Taken by Nursing Pulse Rate - Lying Pulse Rate - Sitting Pulse Rate - Standing Pulse Rate 96 H 89 90 Pulse Rate [Apical] Pulse Rate from SpO2 Sensor Pulse Rhythm Pulse Strength Respiratory Rate 20 8 L 17 Respiratory Effort / Characteristics Respiratory Depth Blood Pressure - Lying Blood Pressure - Sitting Blood Pressure- Standing Blood Pressure Blood Pressure [Left Arm] Blood Pressure Mean Blood Pressure Mean [Left Arm] Blood Pressure Position Blood Pressure Position [Left Arm] Pulse Oximetry Oxygen Delivery Method Oxygen Flow Rate 07/02/18 12:00 07/02/18 12:10 07/02/18 12:17 Temperature Temperature Source Sepsis Recent Fever Within 48 Hours Sepsis Action Taken by Nursing Pulse Rate - Lying Pulse Rate - Sitting Pulse Rate - Standing Pulse Rate 84 87 Pulse Rate [Apical] Pulse Rate from SpO2 Sensor Pulse Rhythm Pulse Strength Respiratory Rate 9 L 14 Respiratory Effort / Characteristics Respiratory Depth Blood Pressure - Lying Blood Pressure - Sitting Blood Pressure- Standing Blood Pressure Blood Pressure [Left Arm] Blood Pressure Mean Blood Pressure Mean [Left Arm] Blood Pressure Position Blood Pressure Position [Left Arm] Pulse Oximetry Oxygen Delivery Method Room Air Oxygen Flow Rate 07/02/18 12:20 07/02/18 12:30 07/02/18 12:40 Temperature Temperature Source Sepsis Recent Fever Within 48 Hours Sepsis Action Taken by Nursing Pulse Rate - Lying Pulse Rate - Sitting Pulse Rate - Standing Pulse Rate 85 82 81 Pulse Rate [Apical] Pulse Rate from SpO2 Sensor Pulse Rhythm Pulse Strength Respiratory Rate 11 L 14 15 Respiratory Effort / Characteristics Respiratory Depth Blood Pressure - Lying Blood Pressure - Sitting Blood Pressure- Standing Blood Pressure Blood Pressure [Left Arm] Blood Pressure Mean Blood Pressure Mean [Left Arm] Blood Pressure Position Blood Pressure Position [Left Arm] Pulse Oximetry Oxygen Delivery Method Oxygen Flow Rate 07/02/18 12:47 07/02/18 12:50 07/02/18 12:54 Temperature 37 C Temperature Source Oral Sepsis Recent Fever Within 48 Hours Sepsis Action Taken by Nursing Pulse Rate - Lying Pulse Rate - Sitting Pulse Rate - Standing Pulse Rate 84 81 82 Pulse Rate [Apical] Pulse Rate from SpO2 Sensor 83 80 Pulse Rhythm Pulse Strength Respiratory Rate 7 L 9 L 16 Respiratory Effort / Characteristics Respiratory Depth Blood Pressure - Lying Blood Pressure - Sitting Blood Pressure- Standing Blood Pressure 92/48 L 92/48 L Blood Pressure [Left Arm] Blood Pressure Mean 62 62 Blood Pressure Mean [Left Arm] Blood Pressure Position Lying Blood Pressure Position [Left Arm] Pulse Oximetry 99 97 97 Oxygen Delivery Method Oxygen Flow Rate 0 07/02/18 12:59 07/02/18 13:00 07/02/18 13:02 Temperature 37.2 C Temperature Source Oral Sepsis Recent Fever Within 48 Hours Sepsis Action Taken by Nursing Pulse Rate - Lying Pulse Rate - Sitting Pulse Rate - Standing Pulse Rate 79 82 81 Pulse Rate [Apical] Pulse Rate from SpO2 Sensor 82 81 84 Pulse Rhythm Pulse Strength Respiratory Rate 12 9 L 10 L Respiratory Effort / Characteristics Respiratory Depth Blood Pressure - Lying Blood Pressure - Sitting Blood Pressure- Standing Blood Pressure 100/54 L 102/60 Blood Pressure [Left Arm] Blood Pressure Mean 69 74 Blood Pressure Mean [Left Arm] Blood Pressure Position Sitting Blood Pressure Position [Left Arm] Pulse Oximetry 100 98 96 Oxygen Delivery Method Oxygen Flow Rate 0 07/02/18 13:50 07/02/18 14:24 Temperature 36.9 C 36.9 C Temperature Source Oral Oral Sepsis Recent Fever Within 48 Hours Sepsis Action Taken by Nursing Pulse Rate - Lying Pulse Rate - Sitting Pulse Rate - Standing Pulse Rate 79 79 Pulse Rate [Apical] Pulse Rate from SpO2 Sensor Pulse Rhythm Regular Regular Pulse Strength Normal Normal Respiratory Rate 18 16 Respiratory Effort / Characteristics Respiratory Depth Blood Pressure - Lying Blood Pressure - Sitting Blood Pressure- Standing Blood Pressure 100/64 92/57 L Blood Pressure [Left Arm] Blood Pressure Mean 76 68 Blood Pressure Mean [Left Arm] Blood Pressure Position Sitting Sitting Blood Pressure Position [Left Arm] Pulse Oximetry 100 99 Oxygen Delivery Method Oxygen Flow Rate Vital signs reviewed. General: Chronically ill-appearing female, in no significant distress. HEENT: No scleral icterus, PERRLA, neck supple. Pale conjunctiva. Atraumatic. Cardiovascular: Regular rate and rhythm, no extra sounds. Pulmonary: Clear to auscultation bilaterally, normal work of breathing. Abdomen: Soft, mild diffuse tenderness, nondistended, positive bowel sounds. Musculoskeletal: Atraumatic, no peripheral edema. Rectal: Guaiac positive stool. Normal rectal mucosa. Neurologic: Patient awake alert and oriented x 3 Skin: Warm, dry, no rash Course 1002: The patient was evaluated in room B4B. A history and physical were performed. 1136: I discussed the patient's case with Regina Duckworth who will evaluate the patient for further management. 1154: I consented the patient for blood. She verbalized agreement and understanding of the treatment plan. Consultations Consultation #1: Regina Duckworth Time: 11:36 Administered Medications Discontinued Medications Diltiazem HCl (Tiazac) 180 mg PO DAILY [facility] Stop: 08/02/18 08:59 Last Admin: 07/04/18 08:12 Dose: Not Given Documented by: [id number] Admin: 07/03/18 08:23 Dose: 180 mg Documented by: [id number] Docusate Sodium (Colace) 100 mg PO BID [facility] Stop: 08/01/18 20:59 Last Admin: 07/04/18 08:15 Dose: 100 mg Documented by: [id number] Admin: 07/03/18 20:40 Dose: 100 mg Documented by: [id number] Admin: 07/03/18 08:24 Dose: 100 mg Documented by: [id number] Admin: 07/02/18 20:21 Dose: Not Given Documented by: [id number] Ferrous Sulfate (Feosol) 325 mg PO DAILY CAN Stop: 08/02/18 08:59 Last Admin: 07/03/18 09:19 Dose: Not Given Documented by: [id number] Ferrous Sulfate (Feosol) 325 mg PO HS CAN Stop: 08/02/18 08:59 Last Admin: 07/03/18 20:40 Dose: 325 mg Documented by: [id number] Gabapentin (Neurontin) 300 mg PO TID [facility] Stop: 08/01/18 14:08 Last Admin: 07/04/18 14:09 Dose: 300 mg Documented by: [id number] Admin: 07/04/18 08:15 Dose: 300 mg Documented by: [id number] Admin: 07/03/18 20:41 Dose: 300 mg Documented by: [id number] Admin: 07/03/18 13:23 Dose: 300 mg Documented by: [id number] Admin: 07/03/18 08:24 Dose: 300 mg Documented by: [id number] Admin: 07/02/18 20:18 Dose: 300 mg Documented by: [id number] Admin: 07/02/18 16:55 Dose: 300 mg Documented by: [id number] Glycopyrrolate (Robinul) Confirm Administered Dose 0.4 mg .ROUTE .STK-MED ONE Stop: 07/03/18 10:52 Last Admin: 07/03/18 12:03 Dose: Not Given Documented by: [id number] Sodium Chloride (Nss) 500 mls @ 999 mls/hr IV .Q31M [facility] Stop: 07/02/18 10:45 Last Admin: 07/02/18 12:17 Dose: Not Given Documented by: [id number] Sodium Chloride (Nss 1000ml) 500 mls @ 999 mls/hr IV .Q31M ONE Stop: 07/02/18 12:06 Last Infusion: 07/02/18 12:57 Dose: 0 mls/hr Documented by: [id number] Admin: 07/02/18 12:16 Dose: 999 mls/hr Documented by: [id number] Sodium Chloride (Nss 1000ml) 1,000 mls @ 125 mls/hr IV .Q8H [facility] Stop: 08/01/18 11:44 Last Admin: 07/02/18 14:17 Dose: Not Given Documented by: [id number] Phytonadione 5 mg/ Sodium (Chloride) 50.5 mls @ 101 mls/hr IV ONE ONE Stop: 07/02/18 12:43 Last Infusion: 07/02/18 14:16 Dose: 0 mls/hr Documented by: [id number] Admin: 07/02/18 13:37 Dose: 101 mls/hr Documented by: [id number] Pantoprazole Sodium 80 mg/ (Dextrose) 120 mls @ 480 mls/hr IV TODAY@1245 [facility] Stop: 07/02/18 12:59 Last Infusion: 07/02/18 14:16 Dose: 0 mls/hr Documented by: [id number] Admin: 07/02/18 13:37 Dose: 480 mls/hr Documented by: [id number] Pantoprazole Sodium 40 mg/ (Dextrose) 100 mls @ 20 mls/hr IV Q5H [facility] Stop: 07/04/18 12:59 Last Admin: 07/03/18 11:48 Dose: Not Given Documented by: [id number] Infusion: 07/03/18 11:48 Dose: 0 mls/hr Documented by: [id number] Infusion: 07/03/18 11:47 Dose: 0 mls/hr Documented by: [id number] Infusion: 07/03/18 10:22 Dose: 0 mls/hr Documented by: [id number] Admin: 07/03/18 05:44 Dose: 20 mls/hr Documented by: [id number] Infusion: 07/03/18 05:32 Dose: 20 mls/hr Documented by: [id number] Admin: 07/03/18 00:32 Dose: 20 mls/hr Documented by: [id number] Infusion: 07/03/18 00:18 Dose: 20 mls/hr Documented by: [id number] Admin: 07/02/18 19:18 Dose: 20 mls/hr Documented by: [id number] Infusion: 07/02/18 18:37 Dose: 20 mls/hr Documented by: [id number] Admin: 07/02/18 13:37 Dose: 20 mls/hr Documented by: [id number] Sodium Chloride (Nss 1000ml) 1,000 mls @ 60 mls/hr IV .[id number] CAN Stop: 07/03/18 06:48 Last Admin: 07/02/18 16:55 Dose: Not Given Documented by: [id number] Lidocaine HCl (Xylocaine 2%) Confirm Administered Dose 4 ml INFIL .STK-MED ONE Stop: 07/03/18 10:52 Last Admin: 07/03/18 12:03 Dose: Not Given Documented by: [id number] Magnesium Hydroxide (Milk Of Magnesia) 30 ml PO Q12H PRN PRN Reason: Constipation Stop: 08/01/18 14:08 Last Admin: 07/04/18 08:16 Dose: 30 ml Documented by: [id number] Multivitamins/Minerals (Caltrate Plus) 2 tab PO DAILY CAN Stop: 08/02/18 08:59 Last Admin: 07/03/18 09:19 Dose: Not Given Documented by: [id number] Multivitamins/Minerals (Multivitamin W/ Minerals Tab) 1 tab PO DAILY CAN Stop: 08/02/18 08:59 Last Admin: 07/03/18 09:19 Dose: Not Given Documented by: [id number] Multivitamins/Minerals (Caltrate Plus) 2 tab PO HS CAN Stop: 08/02/18 08:59 Last Admin: 07/03/18 21:50 Dose: 2 tab Documented by: [id number] Multivitamins/Minerals (Multivitamin W/ Minerals Tab) 1 tab PO HS CAN Stop: 08/02/18 08:59 Last Admin: 07/03/18 20:40 Dose: 1 tab Documented by: [id number] Ondansetron HCl (Zofran) Confirm Administered Dose 4 mg .ROUTE .STK-MED ONE Stop: 07/03/18 10:52 Last Admin: 07/03/18 12:03 Dose: Not Given Documented by: [id number] Pantoprazole Sodium (Protonix) 40 mg PO QAM CAN Stop: 08/03/18 08:59 Last Admin: 07/04/18 08:15 Dose: 40 mg Documented by: [id number] Polyethylene Glycol (Miralax Powder Packet) 17 gm PO DAILY PRN PRN Reason: Constipation Stop: 08/01/18 14:08 Last Admin: 07/04/18 10:33 Dose: 17 gm Documented by: [id number] Potassium Chloride (Klor-Con M20) 20 meq PO NOW STA Stop: 07/02/18 12:49 Last Admin: 07/02/18 17:33 Dose: 20 meq Documented by: [id number] Propofol (Diprivan) Confirm Administered Dose 200 mg IV .STK-MED ONE Stop: 07/03/18 10:52 Last Admin: 07/03/18 12:02 Dose: Not Given Documented by: [id number] Senna/Docusate Sodium (Senokot S) 1 tab PO HS CAN Stop: 08/01/18 20:59 Last Admin: 07/03/18 20:41 Dose: 1 tab Documented by: [id number] Admin: 07/02/18 20:18 Dose: 1 tab Documented by: [id number] Tramadol HCl (Ultram) 50 mg PO Q6H PRN PRN Reason: pain Stop: 08/01/18 14:08 Last Admin: 07/03/18 22:14 Dose: 50 mg Documented by: [id number] Admin: 07/02/18 23:37 Dose: 50 mg Documented by: [id number] Medical Decision Making Differential Diagnosis Differential diagnosis: Etiologies such as esophagitis, variceal bleed, [place]er[place], [place]-Manzo tear, gastritis, peptic ulcer disease, AVM, inflammatory bowel disease, ischemia, diverticulosis, colitis, malignancy, coagulopathy, thrombocytopenia, fissure, hemorrhoid, epistaxis , as well as others were entertained. Medical Records Attestation: I reviewed the patient's medical records. Home Medications Current Medication List: was personally reviewed by me Laboratory Data Attestation: I reviewed the patient's lab results. Result diagrams: 07/04/18 10:31 07/04/18 05:38 Lab Results 07/02/18 07/02/18 07/02/18 Range/Units 10:37 10:37 10:37 WBC 6.44 (4.8-10.8) K/uL RBC 2.20 L (4.2-5.4) M/uL Hgb 7.3 L (12.0-16.0) g/dL Hct 21.1 L (37-47) % MCV 95.9 (80-100) fL MCH 33.2 (25-34) pg MCHC 34.6 (32-36) g/dL RDW Std Deviation 48.1 H (36.4-46.3) fL RDW Coeff of Jimmy 14.1 (11.5-14.5) % Plt Count 217 (130-400) K/uL MPV 9.8 (7.4-10.4) fL Immature Gran % (Auto) 0.3 % Neut % (Auto) 57.2 % Lymph % (Auto) 30.0 % [place] % (Auto) 8.5 % Eos % (Auto) 3.7 % Baso % (Auto) 0.3 % Immature Gran # (Auto) 0.02 (0.00-0.02) K/uL Neut # (Auto) 3.68 (1.4-6.5) K/uL Lymph # (Auto) 1.93 (1.2-3.4) K/uL [place] # (Auto) 0.55 (0.11-0.59) K/uL Eos # (Auto) 0.24 (0-0.5) K/uL Baso # (Auto) 0.02 (0-0.2) K/uL RBC Morphology Unremarkable Polychromasia PT 24.2 H (9.0-12.0) Seconds INR 2.5 H (0.9-1.1) APTT 34.1 H (21.0-31.0) Seconds PTT Ratio 1.3 Sodium 137 (136-145) mmol/L Potassium 3.4 L (3.5-5.1) mmol/L Chloride 106 (98-107) mmol/L Carbon Dioxide 23 (21-32) mmol/L Anion Gap 8.0 (3-11) BUN 78 H (7-18) mg/dl Creatinine 1.28 H (0.6-1.2) mg/dl Est Cr Clr Drug Dosing 33.4 ml/min Est GFR ( Amer) 48.7 Est GFR (Non-Af Amer) 42.0 BUN/Creatinine Ratio 61.0 H (10-20) Glucose 100 H (70-99) mg/dl Calcium 8.9 (8.5-10.1) mg/dl Magnesium 1.8 (1.8-2.4) mg/dl Total Bilirubin 0.2 (0.2-1) mg/dl AST 16 (15-37) U/L ALT 19 (12-78) U/L Alkaline Phosphatase 73 (45-117) U/L Troponin I < 0.015 (0-0.045) ng/ml Total Protein 6.4 (6.4-8.2) gm/dl Albumin 3.3 L (3.4-5.0) gm/dl Globulin 3.1 (2.5-4.0) gm/dl Albumin/Globulin Ratio 1.1 (0.9-2) TSH 2.550 (0.300-4.500) uIu/ml Urine Color Urine Appearance (Clear) Urine pH (4.5-7.5) Ur Specific [place] (1.000-1.030) Urine Protein (Negative) Urine Glucose (UA) (Negative) Urine Ketones (Negative) Urine Blood (Negative) Urine Nitrite (Negative) Urine Bilirubin (Negative) Urine Urobilinogen (Negative) Ur Leukocyte Esterase (Negative) Urine WBC (Auto) (0-5) /hpf Urine RBC (Auto) (0-4) /hpf U Hyaline Cast (Auto) (0-5) /lpf U Epithel Cells (Auto) (0-5) /lpf Urine Bacteria (Auto) (Negative) Blood Type Antibody Screen Crossmatch 07/02/18 07/02/18 07/02/18 Range/Units 10:37 17:30 18:00 WBC (4.8-10.8) K/uL RBC (4.2-5.4) M/uL Hgb 8.5 L (12.0-16.0) g/dL Hct 24.6 L (37-47) % MCV (80-100) fL MCH (25-34) pg MCHC (32-36) g/dL RDW Std Deviation (36.4-46.3) fL RDW Coeff of Jimmy (11.5-14.5) % Plt Count (130-400) K/uL MPV (7.4-10.4) fL Immature Gran % (Auto) % Neut % (Auto) % Lymph % (Auto) % [place] % (Auto) % Eos % (Auto) % Baso % (Auto) % Immature Gran # (Auto) (0.00-0.02) K/uL Neut # (Auto) (1.4-6.5) K/uL Lymph # (Auto) (1.2-3.4) K/uL [place] # (Auto) (0.11-0.59) K/uL Eos # (Auto) (0-0.5) K/uL Baso # (Auto) (0-0.2) K/uL RBC Morphology Polychromasia PT (9.0-12.0) Seconds INR (0.9-1.1) APTT (21.0-31.0) Seconds PTT Ratio Sodium (136-145) mmol/L Potassium (3.5-5.1) mmol/L Chloride (98-107) mmol/L Carbon Dioxide (21-32) mmol/L Anion Gap (3-11) BUN (7-18) mg/dl Creatinine (0.6-1.2) mg/dl Est Cr Clr Drug Dosing ml/min Est GFR ( Amer) Est GFR (Non-Af Amer) BUN/Creatinine Ratio (10-20) Glucose (70-99) mg/dl Calcium (8.5-10.1) mg/dl Magnesium (1.8-2.4) mg/dl Total Bilirubin (0.2-1) mg/dl AST (15-37) U/L ALT (12-78) U/L Alkaline Phosphatase (45-117) U/L Troponin I (0-0.045) ng/ml Total Protein (6.4-8.2) gm/dl Albumin (3.4-5.0) gm/dl Globulin (2.5-4.0) gm/dl Albumin/Globulin Ratio (0.9-2) TSH (0.300-4.500) uIu/ml Urine Color Yellow Urine Appearance Clear (Clear) Urine pH 5.0 (4.5-7.5) Ur Specific [place] 1.018 (1.000-1.030) Urine Protein Negative (Negative) Urine Glucose (UA) Negative (Negative) Urine Ketones Negative (Negative) Urine Blood Negative (Negative) Urine Nitrite Negative (Negative) Urine Bilirubin Negative (Negative) Urine Urobilinogen Negative (Negative) Ur Leukocyte Esterase 1+ H (Negative) Urine WBC (Auto) 5-10 H (0-5) /hpf Urine RBC (Auto) 0-4 (0-4) /hpf U Hyaline Cast (Auto) 1-5 (0-5) /lpf U Epithel Cells (Auto) >30 H (0-5) /lpf Urine Bacteria (Auto) Negative (Negative) Blood Type B Positive Antibody Screen NEGATIVE Crossmatch See Detail 07/02/18 07/03/18 07/03/18 Range/Units 23:03 03:15 03:15 WBC 6.97 (4.8-10.8) K/uL RBC 2.53 L (4.2-5.4) M/uL Hgb 8.6 L 8.2 L (12.0-16.0) g/dL Hct 24.0 L 23.7 L (37-47) % MCV 93.7 (80-100) fL MCH 32.4 (25-34) pg MCHC 34.6 (32-36) g/dL RDW Std Deviation 52.5 H (36.4-46.3) fL RDW Coeff of Jimmy 15.6 H (11.5-14.5) % Plt Count 200 (130-400) K/uL MPV 9.2 (7.4-10.4) fL Immature Gran % (Auto) % Neut % (Auto) % Lymph % (Auto) % [place] % (Auto) % Eos % (Auto) % Baso % (Auto) % Immature Gran # (Auto) (0.00-0.02) K/uL Neut # (Auto) (1.4-6.5) K/uL Lymph # (Auto) (1.2-3.4) K/uL [place] # (Auto) (0.11-0.59) K/uL Eos # (Auto) (0-0.5) K/uL Baso # (Auto) (0-0.2) K/uL RBC Morphology Polychromasia PT 13.1 H (9.0-12.0) Seconds INR 1.3 H (0.9-1.1) APTT (21.0-31.0) Seconds PTT Ratio Sodium (136-145) mmol/L Potassium (3.5-5.1) mmol/L Chloride (98-107) mmol/L Carbon Dioxide (21-32) mmol/L Anion Gap (3-11) BUN (7-18) mg/dl Creatinine (0.6-1.2) mg/dl Est Cr Clr Drug Dosing ml/min Est GFR ( Amer) Est GFR (Non-Af Amer) BUN/Creatinine Ratio (10-20) Glucose (70-99) mg/dl Calcium (8.5-10.1) mg/dl Magnesium (1.8-2.4) mg/dl Total Bilirubin (0.2-1) mg/dl AST (15-37) U/L ALT (12-78) U/L Alkaline Phosphatase (45-117) U/L Troponin I (0-0.045) ng/ml Total Protein (6.4-8.2) gm/dl Albumin (3.4-5.0) gm/dl Globulin (2.5-4.0) gm/dl Albumin/Globulin Ratio (0.9-2) TSH (0.300-4.500) uIu/ml Urine Color Urine Appearance (Clear) Urine pH (4.5-7.5) Ur Specific [place] (1.000-1.030) Urine Protein (Negative) Urine Glucose (UA) (Negative) Urine Ketones (Negative) Urine Blood (Negative) Urine Nitrite (Negative) Urine Bilirubin (Negative) Urine Urobilinogen (Negative) Ur Leukocyte Esterase (Negative) Urine WBC (Auto) (0-5) /hpf Urine RBC (Auto) (0-4) /hpf U Hyaline Cast (Auto) (0-5) /lpf U Epithel Cells (Auto) (0-5) /lpf Urine Bacteria (Auto) (Negative) Blood Type Antibody Screen Crossmatch 07/03/18 07/03/18 07/03/18 Range/Units 03:15 06:26 13:06 WBC (4.8-10.8) K/uL RBC (4.2-5.4) M/uL Hgb 8.7 L 8.4 L (12.0-16.0) g/dL Hct 24.7 L 24.3 L (37-47) % MCV (80-100) fL MCH (25-34) pg MCHC (32-36) g/dL RDW Std Deviation (36.4-46.3) fL RDW Coeff of Jimmy (11.5-14.5) % Plt Count (130-400) K/uL MPV (7.4-10.4) fL Immature Gran % (Auto) % Neut % (Auto) % Lymph % (Auto) % [place] % (Auto) % Eos % (Auto) % Baso % (Auto) % Immature Gran # (Auto) (0.00-0.02) K/uL Neut # (Auto) (1.4-6.5) K/uL Lymph # (Auto) (1.2-3.4) K/uL [place] # (Auto) (0.11-0.59) K/uL Eos # (Auto) (0-0.5) K/uL Baso # (Auto) (0-0.2) K/uL RBC Morphology Polychromasia PT (9.0-12.0) Seconds INR (0.9-1.1) APTT (21.0-31.0) Seconds PTT Ratio Sodium 138 (136-145) mmol/L Potassium 3.5 (3.5-5.1) mmol/L Chloride 110 H (98-107) mmol/L Carbon Dioxide 24 (21-32) mmol/L Anion Gap 4.0 (3-11) BUN 48 H (7-18) mg/dl Creatinine 0.93 D (0.6-1.2) mg/dl Est Cr Clr Drug Dosing 46.2 ml/min Est GFR ( Amer) 71.7 Est GFR (Non-Af Amer) 61.8 BUN/Creatinine Ratio 51.3 H (10-20) Glucose 92 (70-99) mg/dl Calcium 8.5 (8.5-10.1) mg/dl Magnesium (1.8-2.4) mg/dl Total Bilirubin (0.2-1) mg/dl AST (15-37) U/L ALT (12-78) U/L Alkaline Phosphatase (45-117) U/L Troponin I (0-0.045) ng/ml Total Protein (6.4-8.2) gm/dl Albumin (3.4-5.0) gm/dl Globulin (2.5-4.0) gm/dl Albumin/Globulin Ratio (0.9-2) TSH (0.300-4.500) uIu/ml Urine Color Urine Appearance (Clear) Urine pH (4.5-7.5) Ur Specific [place] (1.000-1.030) Urine Protein (Negative) Urine Glucose (UA) (Negative) Urine Ketones (Negative) Urine Blood (Negative) Urine Nitrite (Negative) Urine Bilirubin (Negative) Urine Urobilinogen (Negative) Ur Leukocyte Esterase (Negative) Urine WBC (Auto) (0-5) /hpf Urine RBC (Auto) (0-4) /hpf U Hyaline Cast (Auto) (0-5) /lpf U Epithel Cells (Auto) (0-5) /lpf Urine Bacteria (Auto) (Negative) Blood Type Antibody Screen Crossmatch 07/04/18 07/04/18 07/04/18 Range/Units 05:38 05:38 10:31 WBC 6.86 (4.8-10.8) K/uL RBC 2.30 L (4.2-5.4) M/uL Hgb 7.6 L 8.7 L (12.0-16.0) g/dL Hct 22.0 L (37-47) % MCV 95.7 (80-100) fL MCH 33.0 (25-34) pg MCHC 34.5 (32-36) g/dL RDW Std Deviation 52.9 H (36.4-46.3) fL RDW Coeff of Jimmy 15.7 H (11.5-14.5) % Plt Count 206 (130-400) K/uL MPV 9.1 (7.4-10.4) fL Immature Gran % (Auto) 0.4 % Neut % (Auto) 50.5 % Lymph % (Auto) 32.4 % [place] % (Auto) 9.8 % Eos % (Auto) 6.3 % Baso % (Auto) 0.6 % Immature Gran # (Auto) 0.03 H (0.00-0.02) K/uL Neut # (Auto) 3.47 (1.4-6.5) K/uL Lymph # (Auto) 2.22 (1.2-3.4) K/uL [place] # (Auto) 0.67 H (0.11-0.59) K/uL Eos # (Auto) 0.43 (0-0.5) K/uL Baso # (Auto) 0.04 (0-0.2) K/uL RBC Morphology Polychromasia 1+ PT (9.0-12.0) Seconds INR (0.9-1.1) APTT (21.0-31.0) Seconds PTT Ratio Sodium 139 (136-145) mmol/L Potassium 3.8 (3.5-5.1) mmol/L Chloride 109 H (98-107) mmol/L Carbon Dioxide 25 (21-32) mmol/L Anion Gap 5.0 (3-11) BUN 27 H (7-18) mg/dl Creatinine 1.06 (0.6-1.2) mg/dl Est Cr Clr Drug Dosing 40.5 ml/min Est GFR ( Amer) 61.2 Est GFR (Non-Af Amer) 52.8 BUN/Creatinine Ratio 25.7 H (10-20) Glucose 91 (70-99) mg/dl Calcium 8.2 L (8.5-10.1) mg/dl Magnesium (1.8-2.4) mg/dl Total Bilirubin (0.2-1) mg/dl AST (15-37) U/L ALT (12-78) U/L Alkaline Phosphatase (45-117) U/L Troponin I (0-0.045) ng/ml Total Protein (6.4-8.2) gm/dl Albumin (3.4-5.0) gm/dl Globulin (2.5-4.0) gm/dl Albumin/Globulin Ratio (0.9-2) TSH (0.300-4.500) uIu/ml Urine Color Urine Appearance (Clear) Urine pH (4.5-7.5) Ur Specific [place] (1.000-1.030) Urine Protein (Negative) Urine Glucose (UA) (Negative) Urine Ketones (Negative) Urine Blood (Negative) Urine Nitrite (Negative) Urine Bilirubin (Negative) Urine Urobilinogen (Negative) Ur Leukocyte Esterase (Negative) Urine WBC (Auto) (0-5) /hpf Urine RBC (Auto) (0-4) /hpf U Hyaline Cast (Auto) (0-5) /lpf U Epithel Cells (Auto) (0-5) /lpf Urine Bacteria (Auto) (Negative) Blood Type Antibody Screen Crossmatch 07/04/18 Range/Units 10:31 WBC (4.8-10.8) K/uL RBC (4.2-5.4) M/uL Hgb (12.0-16.0) g/dL Hct (37-47) % MCV (80-100) fL MCH (25-34) pg MCHC (32-36) g/dL RDW Std Deviation (36.4-46.3) fL RDW Coeff of Jimmy (11.5-14.5) % Plt Count (130-400) K/uL MPV (7.4-10.4) fL Immature Gran % (Auto) % Neut % (Auto) % Lymph % (Auto) % [place] % (Auto) % Eos % (Auto) % Baso % (Auto) % Immature Gran # (Auto) (0.00-0.02) K/uL Neut # (Auto) (1.4-6.5) K/uL Lymph # (Auto) (1.2-3.4) K/uL [place] # (Auto) (0.11-0.59) K/uL Eos # (Auto) (0-0.5) K/uL Baso # (Auto) (0-0.2) K/uL RBC Morphology Polychromasia PT 10.4 (9.0-12.0) Seconds INR 1.0 (0.9-1.1) APTT (21.0-31.0) Seconds PTT Ratio Sodium (136-145) mmol/L Potassium (3.5-5.1) mmol/L Chloride (98-107) mmol/L Carbon Dioxide (21-32) mmol/L Anion Gap (3-11) BUN (7-18) mg/dl Creatinine (0.6-1.2) mg/dl Est Cr Clr Drug Dosing ml/min Est GFR ( Amer) Est GFR (Non-Af Amer) BUN/Creatinine Ratio (10-20) Glucose (70-99) mg/dl Calcium (8.5-10.1) mg/dl Magnesium (1.8-2.4) mg/dl Total Bilirubin (0.2-1) mg/dl AST (15-37) U/L ALT (12-78) U/L Alkaline Phosphatase (45-117) U/L Troponin I (0-0.045) ng/ml Total Protein (6.4-8.2) gm/dl Albumin (3.4-5.0) gm/dl Globulin (2.5-4.0) gm/dl Albumin/Globulin Ratio (0.9-2) TSH (0.300-4.500) uIu/ml Urine Color Urine Appearance (Clear) Urine pH (4.5-7.5) Ur Specific [place] (1.000-1.030) Urine Protein (Negative) Urine Glucose (UA) (Negative) Urine Ketones (Negative) Urine Blood (Negative) Urine Nitrite (Negative) Urine Bilirubin (Negative) Urine Urobilinogen (Negative) Ur Leukocyte Esterase (Negative) Urine WBC (Auto) (0-5) /hpf Urine RBC (Auto) (0-4) /hpf U Hyaline Cast (Auto) (0-5) /lpf U Epithel Cells (Auto) (0-5) /lpf Urine Bacteria (Auto) (Negative) Blood Type Antibody Screen Crossmatch Imaging Data Radiologist's Impression: Radiology results as stated below per my review and the radiologist's interpretation: XR chest 1V portable CLINICAL HISTORY: weakness COMPARISON STUDY: March 29, 2018 FINDINGS: There is elevation/eventration of the right hemidiaphragm with colonic interposition. The cardiac and mediastinal contours remain stable. There is no acute parenchymal consolidation. There is no failure. There are no pleural effusions. Arthritic changes are present within the shoulders with erosion of distal clavicles.[ IMPRESSION: 1. Stable elevation/eventration right hemidiaphragm with colonic interposition 2. No acute findings. Electronically signed by: Reggie Cota M.D. 07/02/2018 10:24 AM ECG Data Attestation: I personally reviewed and interpreted this ECG as follows: Indication: other (hypotension) Rate (beats per minute): 98 Rhythm: sinus rhythm Findings: + other (QTC 436, previous septal infarct), + 1st degree AV block and + PAC; no ST depression, no ST elevation and no acute ischemic change Blood Pressure Blood Pressure Findings: Normal blood pressure MDM Narrative This patient was evaluated and appeared to be in no significant distress. IV access was obtained and laboratory work was drawn. Patient's blood pressure has improved with IV hydration. Laboratory work reveals a hemoglobin of 7.2. INR is therapeutic however in the setting of a GI bleed, she was given 5 mg of IV vitamin K. Patient was also ordered an IV Protonix bolus of 80 mg. Due to the anemia, patient was typed and crossed for 1 unit of PRBCs with 1 unit to hold. She was consented for blood transfusion as her hemoglobin is less than 8. Patient is guaiac positive from below with no acute rectal bleeding. Case was discussed with the hospitalist service will evaluate the patient for further management. Patient is aware of the plan and agrees. Impression & Plan GI bleed, Supratherapeutic INR Critical Care Time I have personally spent 35 minutes of critical care time in the direct management of this patient. This includes bedside care, interpretation of diagnostic studies, and testing, discussion with consultants, patient, and family members, and other required patient management activities. This 35 minutes is in excess of all separately billable procedures. Critical Care Time: Yes Total Critical Care Time: 35 Discharge Plan Visit Data *Final* Discharge Date/Time: 07/02/18 15:34 Chief Complaint: Hypotension Stated Complaint: WEAKNESS, HYPOTNESION ED Provider: Brigid Viera Discharge Problem: GI bleed, Supratherapeutic INR Patient Disposition: Admitted As Inpatient Discharge Instructions Interventions: ED Discharge Assessment Last Done: 07/02/18 15:34 Discharge Problem: GI bleed Qualifiers: GI bleed type/associated pathology: unspecified gastrointestinal hemorrhage t ype Qualified Code(s): K92.2 - Gastrointestinal hemorrhage, unspecified The scribe's documentation has been prepared under my direction and personally reviewed by me in its entirety. I confirm that the note above accurately reflects all work, treatment, procedures, and medical decision making performed by me.
[2018-07-02] MEDS: GABAPENTIN 300 MG CAP PO SCH ×2 (16:55→20:18)
[2018-07-02 18:00] LABS: Appearance Urine Clear (Clear); Bacteria Urine Automated Negative (Negative); Bilirubin Urine Negative (Negative); Blood Urine Negative (Negative); Color Urine Yellow; Epithelial Cell Urine Auto >30 /lpf (0-5); Glucose Urine UA Negative (Negative); Ketones Urine Negative (Negative); Leukocyte Esterase Urine 1+ (Negative); Nitrite Urine Negative (Negative); Protein Urine Negative (Negative); RBC Urine Automated 0-4 /hpf (0-4); Specific Gravity Urine 1.018 (1.000-1.030); Urobilinogen Urine Negative (Negative)
[2018-07-02 18:24] LABS: Hematocrit (blood only) 24.6 % (37-47); Hemoglobin 8.5 g/dL (12.0-16.0)
[2018-07-02] MEDS: DOCUSATE SODIUM 100 MG CAP PO SCH ×2 (20:17→20:21)
[2018-07-02] MEDS: TRAVOPROST Z 0.004% OPH SOLN 2.5 ML BTL OP SCH (20:18)
[2018-07-02] MEDS: DOCUSATE SODIUM/SENNA 50/8.6MG TAB PO SCH (20:18)
[2018-07-02 23:16] LABS: Hemoglobin 8.6 g/dL (12.0-16.0)
[2018-07-02] MEDS: TRAMADOL HCL 50 MG TABLET PO PRN (23:37)
[2018-07-03] MEDS: PANTOprazole 40 MG in DEXTROSE 5% 100 ML IV SCH ×3 (00:32→11:48)
[2018-07-03 03:27] LABS: Hematocrit (blood only) 23.7 % (37-47); Hemoglobin 8.2 g/dL (12.0-16.0); Mean Corpuscular Hgb Conc 34.6 g/dL (32-36); Mean Corpuscular Volume 93.7 fL (80-100); Mean Platelet Volume 9.2 fL (7.4-10.4); Platelet Count 200 K/uL (130-400); RDW Coefficient of Variation 15.6 % (11.5-14.5); RDW Standard Deviation 52.5 fL (36.4-46.3); Red Blood Count 2.53 M/uL (4.2-5.4); White Blood Count 6.97 K/uL (4.8-10.8)
[2018-07-03 03:40] LABS: INR 1.3 (0.9-1.1); Prothrombin Time 13.1 Seconds (9.0-12.0)
[2018-07-03 03:50] LABS: BUN Creatinine Ratio 51.3 (10-20); Calcium 8.5 mg/dl (8.5-10.1); Creatinine Clr Calc Pharmacy 46.2 ml/min; Est GFR (African American) 71.7; Est GFR (Non-African American) 61.8; Potassium 3.5 mmol/L (3.5-5.1)
[2018-07-03 07:03] LABS: Hematocrit (blood only) 24.7 % (37-47); Hemoglobin 8.7 g/dL (12.0-16.0)
[2018-07-03] MEDS: dilTIAZem ER 180 MG CAPCR PO SCH (08:23)
[2018-07-03] MEDS: GABAPENTIN 300 MG CAP PO SCH ×3 (08:24→20:41)
[2018-07-03] MEDS: DOCUSATE SODIUM 100 MG CAP PO SCH ×2 (08:24→20:40)
[2018-07-03] MEDS ORDERED: FERROUS SULFATE 325 MG TAB PO SCH ×2 (09:00→21:00)
[2018-07-03] MEDS ORDERED: CALCIUM 600MG + VIT D 400 IU TAB PO SCH ×2 (09:00→21:00)
[2018-07-03] MEDS ORDERED: CEROVITE ADV FORMULA TAB PO SCH ×2 (09:00→21:00)
[2018-07-03] MEDS ORDERED: Nursing to Pharmacy Communication ONE (09:08)
--- NOTE | 2018-07-03 09:22 | Hospitalist Progress Note ---
Date of Service July 03, 2018 Assessment & Plan (1) GI bleed: (2) Anemia: This is a 72-year-old female has a significant past medical history of PAF on Coumadin, HTN, HLD, COPD, CKD stage III, COPD, hypomagnesemia, glaucoma, history of MSSA bacteremia, history of AVN left hip status post [place] procedure, history of tiny right lung PE while off coumadin for colonoscopy who presents to [facility] secondary to low blood pressure and dizziness x2 days. While in ED her H&H was noted to be 7.3/21.1, INR 2.5. INR on 06/27 was 4.9 She had elevated bun/cr at 78/1.28. CXR no acute abn and ecg revealed NSR. She remained hemodynamically stable. +FOBT She was ordered IVF but was hesitant to receive given that, "I did not take my Lasix today or yesterday I do not want to get volume overloaded." She declined 1L fluid bolus She was ordered to receive VIT K IV 5mg and PPI bolus/gtt. -- s/p 1 unit pRBC Hg 8.8 -- s/p EGD (+) gastritis -- Protonix daily advance diet -- will discuss with GI re: restarting ASA, Coumadin hold lasix in setting of hypovolemia, monitor closely for volume overload (3) Acute kidney injury superimposed on chronic kidney disease: Baseline creatinine 1.29 with hx of CKD stage 3 BUN/creatinine 78 and 1.28 with a ratio of 61 Prerenal secondary to hypovolemia crea back to baseline (4) Hypokalemia: resolved (5) Hypertension: Patient actually with intermittent hypotension given anemia and hypovolemia Hold oral antihypertensives to prevent hypotension Patient's lisinopril was stopped on 07/01 at PCP secondary to hypotension (6) Atrial fibrillation: Continue diltiazem with parameters for rate/rhythm control Discontinue Coumadin in setting of acute GI bleed 5 mg of vitamin K was ordered in ED inr 1.3 (7) COPD (chronic obstructive pulmonary disease): No acute exacerbation Not on ICS/LABA or SONY former hx of tobacco abuse (8) Chronic low back pain: Continue gabapentin and tramadol (9) History of pulmonary embolism: Stop warfarin given GIB occurred in August 2017 after stopping warfarin for routine colonoscopy, tiny R PE (10) DVT prophylaxis: SCDs given probable GIB and new onset anemia Full Code Disposition: Discharge to home when able Follow-up: PCP Dr. Johnston upon discharge Subjective ff up for GI bleed seen resting in bed, comfortable states she feels fine overall denies abdominal pain, melena/hematochezia no chest pain, dyspnea, palpitations, dizziness Review of Systems Review of Systems: All systems reviewed & are unremarkable except as noted in HPI & below Physical Exam Physical Exam: General- oriented x 3, not in distress, speaks in sentences with no effort or accessory muscle use Eyes- anicteric Neck- no JVD Lungs- clear BS BL no crackles no wheezing Heart- normal rate, regular rhythm; no murmurs Abdomen- normal bowel sounds, nondistended, soft, nontender Extremities- no pretibial edema, no calf tenderness Neuro- alert, oriented x 3; no gross focal neurologic deficits Skin- warm & dry Results & Data Vital Signs (Past 12 Hours) Vital Signs Temp Pulse Pulse Resp BP Pulse Ox 07/03/18 07:37 36.5 C 73 18 112/72 96 07/03/18 03:41 36.8 C 81 18 113/70 96 07/03/18 00:00 83 07/02/18 23:29 36.9 C 84 18 106/66 96 Laboratory Results Laboratory Results - last 24 hr 07/02/18 07/02/18 07/02/18 10:37 17:30 18:00 WBC RBC Hgb 8.5 L Hct 24.6 L MCV MCH MCHC RDW Std Deviation RDW Coeff of Jimmy Plt Count MPV PT INR Sodium Potassium Chloride Carbon Dioxide Anion Gap BUN Creatinine Est Cr Clr Drug Dosing Est GFR ( Amer) Est GFR (Non-Af Amer) BUN/Creatinine Ratio Glucose Calcium Urine Color Yellow Urine Appearance Clear Urine pH 5.0 Ur Specific [place] 1.018 Urine Protein Negative Urine Glucose (UA) Negative Urine Ketones Negative Urine Blood Negative Urine Nitrite Negative Urine Bilirubin Negative Urine Urobilinogen Negative Ur Leukocyte Esterase 1+ H Urine WBC (Auto) 5-10 H Urine RBC (Auto) 0-4 U Hyaline Cast (Auto) 1-5 U Epithel Cells (Auto) >30 H Urine Bacteria (Auto) Negative Crossmatch See Detail 07/02/18 07/03/18 07/03/18 23:03 03:15 03:15 WBC 6.97 RBC 2.53 L Hgb 8.6 L 8.2 L Hct 24.0 L 23.7 L MCV 93.7 MCH 32.4 MCHC 34.6 RDW Std Deviation 52.5 H RDW Coeff of Jimmy 15.6 H Plt Count 200 MPV 9.2 PT 13.1 H INR 1.3 H Sodium Potassium Chloride Carbon Dioxide Anion Gap BUN Creatinine Est Cr Clr Drug Dosing Est GFR ( Amer) Est GFR (Non-Af Amer) BUN/Creatinine Ratio Glucose Calcium Urine Color Urine Appearance Urine pH Ur Specific [place] Urine Protein Urine Glucose (UA) Urine Ketones Urine Blood Urine Nitrite Urine Bilirubin Urine Urobilinogen Ur Leukocyte Esterase Urine WBC (Auto) Urine RBC (Auto) U Hyaline Cast (Auto) U Epithel Cells (Auto) Urine Bacteria (Auto) Crossmatch 07/03/18 07/03/18 07/03/18 03:15 06:26 13:06 WBC RBC Hgb 8.7 L 8.4 L Hct 24.7 L 24.3 L MCV MCH MCHC RDW Std Deviation RDW Coeff of Jimmy Plt Count MPV PT INR Sodium 138 Potassium 3.5 Chloride 110 H Carbon Dioxide 24 Anion Gap 4.0 BUN 48 H Creatinine 0.93 D Est Cr Clr Drug Dosing 46.2 Est GFR ( Amer) 71.7 Est GFR (Non-Af Amer) 61.8 BUN/Creatinine Ratio 51.3 H Glucose 92 Calcium 8.5 Urine Color Urine Appearance Urine pH Ur Specific [place] Urine Protein Urine Glucose (UA) Urine Ketones Urine Blood Urine Nitrite Urine Bilirubin Urine Urobilinogen Ur Leukocyte Esterase Urine WBC (Auto) Urine RBC (Auto) U Hyaline Cast (Auto) U Epithel Cells (Auto) Urine Bacteria (Auto) Crossmatch (1) GI bleed GI bleed type/associated pathology: unspecified gastrointestinal hemorrhage type Qualified Code(s): K92.2 - Gastrointestinal hemorrhage, unspecified (2) Atrial fibrillation Atrial fibrillation type: paroxysmal Qualified Code(s): I48.0 - Paroxysmal atrial fibrillation (3) Hypertension Hypertension type: essential hypertension Qualified Code(s): I10 - Essential (primary) hypertension
--- NOTE | 2018-07-03 10:45 | Anesthesiology Consultation ---
Date of Service July 03, 2018 Assessment & Plan (1) Encounter for pre-operative examination: Chart Review Chart Review: Acceptable Risk for Surgery and Patient NOT seen in Pre Admission Testing Consults Requested none History Surgery Operation Date: 07/03/18 08:30 Proposed Procedures p Esophagogastroduodenoscopy Dr Campos - Aiden Campos Height/Weight Height: 5 ft Weight: 63.5 kg Allergies Allergy/AdvReac Type Severity Reaction Status Date / Time brimonidine Allergy Intermediate OTHER-SEE Verified 07/02/18 10:23 COMMENT ceftriaxone Allergy Intermediate RASH Verified 07/02/18 10:23 chlorhexidine Allergy Intermediate RASH Verified 07/02/18 10:23 vancomycin Allergy Intermediate red jez Verified 07/02/18 10:23 syndrome codeine Allergy Mild GI SYMPTOMS Verified 07/02/18 10:23 latex Allergy Mild RASH Verified 07/02/18 10:23 oxycodone Allergy Mild GI Verified 07/02/18 10:23 SYMPTOMS-TYL. W/CODEINE OK nickel Allergy Unknown RASH Verified 07/02/18 10:23 diphenhydramine AdvReac Intermediate Hyper Verified 07/02/18 10:23 Medications Home Medications Medication Instructions Recorded Confirmed Last Taken acetaminophen 500 mg tablet 500 mg PO Q4H PRN 12/30/17 07/02/18 Unknown aspirin 81 mg tablet,delayed 81 mg PO DAILY 12/30/17 07/02/18 07/02/18 release calcium carbonate-vitamin D3 500 2 tab PO DAILY tab 12/30/17 07/02/18 03/29/18 mg(1,250 mg)-600 unit chewable tablet diltiazem ER 180 mg capsule,24 180 mg PO DAILY 12/30/17 07/02/18 07/02/18 hr,extended release docusate sodium 100 mg capsule 100 mg PO BID 12/30/17 07/02/18 03/29/18 famotidine 20 mg tablet 20 mg PO DAILY PRN 12/30/17 07/02/18 Unknown ferrous sulfate 325 mg (65 mg 325 mg PO DAILY tab 12/30/17 07/02/18 03/29/18 iron) tablet ididoscj-gddyvcj-mcxt-lutein tablet 1 tab PO DAILY tab 12/30/17 07/02/18 03/29/18 ondansetron 4 mg disintegrating 4 mg PO Q6H PRN tab 12/30/17 07/02/18 Unknown tablet furosemide [Lasix] 40 mg PO DAILY 03/29/18 07/02/18 06/30/18 sennosides-docusate sodium 1 tab PO HS 03/29/18 07/02/18 Unknown [Senokot-S] tramadol 50 mg tablet 50 mg PO Q6H PRN #90 tab 05/19/18 07/02/18 Unknown gabapentin 300 mg capsule 300 mg PO TID #90 cap 06/03/18 07/02/18 Unknown warfarin 4 mg tablet 4 mg PO .COMPLEX 06/17/18 07/02/18 Unknown warfarin 6 mg tablet 6 mg PO .COMPLEX tab 06/17/18 07/02/18 Unknown travoprost [Travatan Z] 1 drp OPHTHALMIC (EYE) PM 07/02/18 07/02/18 Unknown Active Medications Generic Name Dose Route Start Last Admin Trade Name Freq PRN Reason Stop Dose Admin Diltiazem HCl 180 mg 07/03/18 09:00 07/03/18 08:23 Tiazac PO 08/02/18 08:59 180 mg DAILY CAN Administration Docusate Sodium 100 mg 07/02/18 21:00 07/03/18 08:24 Colace PO 08/01/18 20:59 100 mg BID CAN Administration Gabapentin 300 mg 07/02/18 14:09 07/03/18 08:24 Neurontin PO 08/01/18 14:08 300 mg TID CAN Administration Pantoprazole Sodium 40 mg/ 100 mls @ 20 mls/hr 07/02/18 13:00 07/03/18 10:22 Dextrose IV 07/04/18 12:59 0 mls/hr Q5H CAN Infusion Senna/Docusate Sodium 1 tab 07/02/18 21:00 07/02/18 20:18 Senokot S PO 08/01/18 20:59 1 tab HS CAN Administration Tramadol HCl 50 mg 07/02/18 14:09 07/02/18 23:37 Ultram PO 08/01/18 14:08 50 mg Q6H PRN Administration pain NPO Date Last Intake of Fluids: 07/02/18 Time Last Intake of Fluids: 11:59 Date Last Intake of Solids: 07/01/18 Time Last Intake of Solids: 18:00 Past Medical History Medical History Sigmoid diverticulosis (Chronic) History of pulmonary embolism (Chronic) Glaucoma (Chronic) History of bacteremia (Chronic) MSSA Asthma (Chronic) COPD (chronic obstructive pulmonary disease) (Chronic) Hypertension (Chronic) Chronic low back pain (Chronic) Lumbar disc disease (Chronic) Dyslipidemia (Chronic) Atrial fibrillation (Chronic) Anemia (Chronic) Hyponatremia (Chronic) CKD (chronic kidney disease), stage III (Chronic) AVN (avascular necrosis of bone) (Chronic) Atrial fibrillation (Chronic) Kidney disease (Chronic) Osteoarthritis (Chronic) History of pulmonary embolism (Resolved) Osteomyelitis (Resolved) Septic arthritis (Resolved) Avascular necrosis of bone Hypertension Osteoarthritis Pulmonary embolism Past Family History Family History Father Esophageal cancer Past Surgical History Surgical History History of colonoscopy with polypectomy (Chronic) History of hip surgery (Resolved) S/P inguinal hernia repair (Chronic) S/P epidural steroid injection (Chronic) History of incision and drainage (Resolved) left hip History of surgery removal of left acetabulum Social History Smoking Status: Former smoker Hx Alcohol Use: Yes Alcohol type: wine alcohol intake frequency: a few times a week Hx Substance Use: No Physical Exam Vital Signs Last Vital Signs Temp 36.8 C 07/03/18 10:23 Pulse 97 H 07/03/18 10:23 Resp 18 07/03/18 10:23 BP 132/68 07/03/18 10:23 Pulse Ox 97 07/03/18 10:23 Testing Laboratory Results 07/03/18 06:26 07/03/18 03:15 Blood Type B Positive 07/02/18 10:37 Antibody Screen NEGATIVE 07/02/18 10:37 PT 13.1 Seconds (9.0-12.0) H 07/03/18 03:15 INR 1.3 (0.9-1.1) H 07/03/18 03:15 APTT 34.1 Seconds (21.0-31.0) H 07/02/18 10:37 Urine Color Yellow 07/02/18 17:30 Urine Appearance Clear (Clear) 07/02/18 17:30 Urine pH 5.0 (4.5-7.5) 07/02/18 17:30 Ur Specific [place] 1.018 (1.000-1.030) 07/02/18 17:30 Urine Protein Negative (Negative) 07/02/18 17:30 Urine Glucose (UA) Negative (Negative) 07/02/18 17:30 Urine Ketones Negative (Negative) 07/02/18 17:30 Urine Nitrite Negative (Negative) 07/02/18 17:30 Ur Leukocyte Esterase 1+ (Negative) H 07/02/18 17:30 Urine WBC (Auto) 5-10 /hpf (0-5) H 07/02/18 17:30 Urine RBC (Auto) 0-4 /hpf (0-4) 07/02/18 17:30 U Hyaline Cast (Auto) 1-5 /lpf (0-5) 07/02/18 17:30 U Epithel Cells (Auto) >30 /lpf (0-5) H 07/02/18 17:30 Urine Bacteria (Auto) Negative (Negative) 07/02/18 17:30
[2018-07-03] MEDS ORDERED: ONDANSETRON INJ 2 MG/ML 2 ML VIAL ONE (10:51)
[2018-07-03] MEDS ORDERED: LIDOCAINE HCL 2% 2 ML VIAL/AMP(20MG/ML) INFIL ONE (10:51)
[2018-07-03] MEDS ORDERED: PROPOFOL IV EMULSION 10 MG/ML 20 ML VIAL IV ONE (10:51)
[2018-07-03] MEDS ORDERED: GLYCOPYRROLATE 0.2 MG/ML VIAL ONE (10:51)
--- NOTE | 2018-07-03 11:00 | History & Physical Report ---
Date of Service July 03, 2018 Assessment & Plan (1) GI bleeding: stable for EGD History of Present Illness Chief Complaint: GI bleeding Primary Care Provider: Jeremiah Alvarado MD pt with hx of GI bleeding for EGD Allergies Allergy/AdvReac Type Severity Reaction Status Date / Time brimonidine Allergy Intermediate OTHER-SEE Verified 07/02/18 10:23 COMMENT ceftriaxone Allergy Intermediate RASH Verified 07/02/18 10:23 chlorhexidine Allergy Intermediate RASH Verified 07/02/18 10:23 vancomycin Allergy Intermediate red jez Verified 07/02/18 10:23 syndrome codeine Allergy Mild GI SYMPTOMS Verified 07/02/18 10:23 latex Allergy Mild RASH Verified 07/02/18 10:23 oxycodone Allergy Mild GI Verified 07/02/18 10:23 SYMPTOMS-TYL. W/CODEINE OK nickel Allergy Unknown RASH Verified 07/02/18 10:23 diphenhydramine AdvReac Intermediate Hyper Verified 07/02/18 10:23 Home Medications Home Medications Medication Instructions Recorded Confirmed Type acetaminophen 500 mg tablet 500 mg PO Q4H PRN 12/30/17 07/02/18 History aspirin 81 mg tablet,delayed 81 mg PO DAILY 12/30/17 07/02/18 History release calcium carbonate-vitamin D3 500 2 tab PO DAILY tab 12/30/17 07/02/18 History mg(1,250 mg)-600 unit chewable tablet diltiazem ER 180 mg capsule,24 180 mg PO DAILY 12/30/17 07/02/18 History hr,extended release docusate sodium 100 mg capsule 100 mg PO BID 12/30/17 07/02/18 History famotidine 20 mg tablet 20 mg PO DAILY PRN 12/30/17 07/02/18 History ferrous sulfate 325 mg (65 mg 325 mg PO DAILY tab 12/30/17 07/02/18 History iron) tablet oyzipemx-uqnpjdg-sidn-lutein tablet 1 tab PO DAILY tab 12/30/17 07/02/18 History ondansetron 4 mg disintegrating 4 mg PO Q6H PRN tab 12/30/17 07/02/18 History tablet furosemide [Lasix] 40 mg PO DAILY 03/29/18 07/02/18 History sennosides-docusate sodium 1 tab PO HS 03/29/18 07/02/18 History [Senokot-S] tramadol 50 mg tablet 50 mg PO Q6H PRN #90 tab 05/19/18 07/02/18 Rx gabapentin 300 mg capsule 300 mg PO TID #90 cap 06/03/18 07/02/18 Rx warfarin 4 mg tablet 4 mg PO .COMPLEX 06/17/18 07/02/18 History warfarin 6 mg tablet 6 mg PO .COMPLEX tab 06/17/18 07/02/18 History travoprost [Travatan Z] 1 drp OPHTHALMIC (EYE) PM 07/02/18 07/02/18 History Past Med/Surg History Medical History Sigmoid diverticulosis (Chronic) History of pulmonary embolism (Chronic) Glaucoma (Chronic) History of bacteremia (Chronic) MSSA Asthma (Chronic) COPD (chronic obstructive pulmonary disease) (Chronic) Hypertension (Chronic) Chronic low back pain (Chronic) Lumbar disc disease (Chronic) Dyslipidemia (Chronic) Atrial fibrillation (Chronic) Anemia (Chronic) Hyponatremia (Chronic) CKD (chronic kidney disease), stage III (Chronic) AVN (avascular necrosis of bone) (Chronic) Atrial fibrillation (Chronic) Kidney disease (Chronic) Osteoarthritis (Chronic) History of pulmonary embolism (Resolved) Osteomyelitis (Resolved) Septic arthritis (Resolved) Avascular necrosis of bone Hypertension Osteoarthritis Pulmonary embolism Surgical History History of colonoscopy with polypectomy (Chronic) History of hip surgery (Resolved) S/P inguinal hernia repair (Chronic) S/P epidural steroid injection (Chronic) History of incision and drainage (Resolved) left hip History of surgery removal of left acetabulum Family History Father Esophageal cancer Social History Preferred Language: Slovenian Communication Ability: Effective Beliefs That Will Affect Care: None marital status: Current Living Situation: Family 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 Other Information That Helps Us Care for You: No Feels Safe at Home: Yes Safety Concerns: Feels Safe At This Time Smoking Status: Former smoker Second Hand Exposure: No Hx Alcohol Use: Yes Alcohol type: wine Alcohol Intake Frequency Comment: 2 drinks daily Hx Substance Use: No Physical Exam Vital Signs (Past 24 Hours): Last Vital Signs Temp 36.8 C 07/03/18 10:23 Pulse 97 H 07/03/18 10:23 Resp 18 07/03/18 10:23 BP 132/68 07/03/18 10:23 Pulse Ox 97 07/03/18 10:23 Constitutional: WD/WN, vitals as above Respiratory: normal respiratory effort, lungs clear to auscultation Cardiovascular: RRR, no murmur, no edema Gastrointestinal (Abdomen): normal bowel sounds, soft, nontender, no hepatosplenomegaly Code Status & VTE Plan VTE Prophylaxis Plan VTE Prophylaxis will be ordered: Yes Reason for no VTE drug order: Contraindicated
--- NOTE | 2018-07-03 11:25 | GI REPORT ---
Patient Name: Keena Cool Procedure Date: 07/03/2018 11:03 AM Date of : 1945 Admit Type: Inpatient Age: 72 Gender: Female Attending MD: Aiden Campos MD Procedure: Upper GI endoscopy Providers: Aiden Campos MD Referring MD: Jeremiah Alvarado, Rosemarie Garzon Md Indications: Melena Medicines: See the Anesthesia note for documentation of the administered medications Complications: No immediate complications. Estimated Blood Loss: Estimated blood loss: none. Procedure: Pre-Anesthesia Assessment: - Prior to the procedure, a History and Physical was performed, and patient medications, allergies and sensitivities were reviewed. The patient's tolerance of previous anesthesia was reviewed. - The risks and benefits of the procedure and the sedation options and risks were discussed with the patient. All questions were answered and informed consent was obtained. - Patient identification and proposed procedure were verified prior to the procedure by the physician and the nurse. The procedure was verified in the pre-procedure area. - Pre-procedure physical examination revealed no contraindications to sedation. - After reviewing the risks and benefits, the patient was deemed in satisfactory condition to undergo the procedure. After obtaining informed consent, the endoscope was passed under direct vision. Throughout the procedure, the patient's blood pressure, pulse, and oxygen saturations were monitored continuously. The Endoscope was introduced through the mouth, and advanced to the third part of duodenum. The upper GI endoscopy was accomplished without difficulty. The patient tolerated the procedure well. Findings: The esophagus was normal. Scattered moderate inflammation was found in the gastric antrum. The examined duodenum was normal. The cardia and gastric fundus were normal on retroflexion. Impression: - Normal esophagus. - Gastritis. - Normal examined duodenum. - No specimens collected. - No active bleeding seen. Recommendation: - Return patient to hospital ni for ongoing care. - Cont PPI daily as an out patient. - Keep tight control of INR. Aiden Campos M.D. Aiden Campos MD 07/03/2018 11:25:10 AM This report has been signed electronically. Note Initiated On: 07/03/2018 11:03 AM Number of Addenda: 0 I attest to the content of the Intraoperative Record and orders documented therein, exceptions below {[id number]}
[2018-07-03 13:19] LABS: Hematocrit (blood only) 24.3 % (37-47); Hemoglobin 8.4 g/dL (12.0-16.0)
--- NOTE | 2018-07-03 14:50 | Anesthesiology Progress Note ---
Date of Service July 03, 2018 Anesthesia Post Procedure Vital Signs Vital Signs: Temp Pulse Pulse Pulse Resp BP BP 07/03/18 13:10 90 16 07/03/18 12:55 88 16 07/03/18 12:40 85 16 07/03/18 12:25 84 18 07/03/18 12:10 36.6 C 83 18 07/03/18 11:51 89 16 112/73 07/03/18 11:36 94 H 16 126/70 07/03/18 11:21 95 H 16 109/66 07/03/18 10:23 36.8 C 97 H 18 132/68 07/03/18 07:37 36.5 C 73 18 112/72 07/03/18 03:41 36.8 C 81 18 113/70 07/03/18 00:00 83 07/02/18 23:29 36.9 C 84 18 106/66 07/02/18 19:00 36.8 C 79 18 110/66 07/02/18 16:00 79 07/02/18 15:30 36.9 C 115/66 BP Pulse Ox 07/03/18 13:10 99/64 L 96 07/03/18 12:55 101/66 95 07/03/18 12:40 99/64 L 96 07/03/18 12:25 101/68 97 07/03/18 12:10 112/78 96 07/03/18 11:51 98 07/03/18 11:36 98 07/03/18 11:21 96 07/03/18 10:23 97 07/03/18 07:37 96 07/03/18 03:41 96 07/03/18 00:00 07/02/18 23:29 96 07/02/18 19:00 95 07/02/18 16:00 07/02/18 15:30 98 Pain Intensity Back: Pain Intensity: 4 Transfer of Care Handoff Completed per policy Notes Mental Status: alert / awake / arousable Patient Amnestic to Procedure: Yes Nausea / Vomiting: adequately controlled Pain: adequately controlled Airway Patency, RR, SpO2: stable & adequate BP & HR: stable & adequate Hydration State: stable & adequate Anesthetic Complications: no major complications apparent and Pt Satisfied with anesthetic care
[2018-07-03] MEDS: DOCUSATE SODIUM/SENNA 50/8.6MG TAB PO SCH (20:41)
[2018-07-03] MEDS: TRAVOPROST Z 0.004% OPH SOLN 2.5 ML BTL OP SCH (20:41)
[2018-07-03] MEDS: TRAMADOL HCL 50 MG TABLET PO PRN (22:14)
[2018-07-04 06:00] LABS: Basophils # (auto) 0.04 K/uL (0-0.2); Basophils % (auto) 0.6 %; Eosinophils # (auto) 0.43 K/uL (0-0.5); Eosinophils % (auto) 6.3 %; Hemoglobin 7.6 g/dL (12.0-16.0); Immature Granulocytes # (auto) 0.03 K/uL (0.00-0.02); Immature Granulocytes % (auto) 0.4 %; Lymphocytes # (auto) 2.22 K/uL (1.2-3.4); Lymphocytes % (auto) 32.4 %; Mean Corpuscular Hgb Conc 34.5 g/dL (32-36); Mean Corpuscular Volume 95.7 fL (80-100); Mean Platelet Volume 9.1 fL (7.4-10.4); Monocytes # (auto) 0.67 K/uL (0.11-0.59); Monocytes % (auto) 9.8 %; Neutrophils # (auto) 3.47 K/uL (1.4-6.5); Neutrophils % (auto) 50.5 %; Platelet Count 206 K/uL (130-400); RDW Coefficient of Variation 15.7 % (11.5-14.5); RDW Standard Deviation 52.9 fL (36.4-46.3); White Blood Count 6.86 K/uL (4.8-10.8)
[2018-07-04 06:34] LABS: BUN Creatinine Ratio 25.7 (10-20); Calcium 8.2 mg/dl (8.5-10.1); Creatinine Clr Calc Pharmacy 40.5 ml/min; Est GFR (African American) 61.2; Est GFR (Non-African American) 52.8; Potassium 3.8 mmol/L (3.5-5.1)
[2018-07-04 06:36] LABS: Polychromasia 1+
[2018-07-04] MEDS: dilTIAZem ER 180 MG CAPCR PO SCH (08:12)
[2018-07-04] MEDS: DOCUSATE SODIUM 100 MG CAP PO SCH (08:15)
[2018-07-04] MEDS: GABAPENTIN 300 MG CAP PO SCH ×2 (08:15→14:09)
[2018-07-04] MEDS ORDERED: PANTOprazole 40 MG TAB PO SCH (09:00)
[2018-07-04 10:58] LABS: Prothrombin Time 10.4 Seconds (9.0-12.0)
--- NOTE | 2018-07-04 14:40 | Hospitalist Progress Note ---
Date of Service July 04, 2018 Assessment & Plan (1) GI bleed: (2) Anemia: This is a 72-year-old female has a significant past medical history of PAF on Coumadin, HTN, HLD, COPD, CKD stage III, COPD, hypomagnesemia, glaucoma, history of MSSA bacteremia, history of AVN left hip status post Girdlestone procedure, history of tiny right lung PE while off coumadin for colonoscopy who presents to [facility] secondary to low blood pressure and dizziness x2 days. While in ED her H&H was noted to be 7.3/21.1, INR 2.5. INR on 06/27 was 4.9 She had elevated bun/cr at 78/1.28. CXR no acute abn and ecg revealed NSR. She remained hemodynamically stable. +FOBT She was ordered IVF but was hesitant to receive given that, "I did not take my Lasix today or yesterday I do not want to get volume overloaded." She declined 1L fluid bolus She was ordered to receive VIT K IV 5mg and PPI bolus/gtt. -- s/p 1 unit pRBC Hg improved from 7.3 to 8.8, remained stable since transfusion -- s/p EGD by Dr. Campos gastritis Findings: The esophagus was normal. Scattered moderate inflammation was found in the gastric antrum. The examined duodenum was normal. The cardia and gastric fundus were normal on retroflexion. Impression: - Normal esophagus. - Gastritis. - Normal examined duodenum. - No specimens collected. - No active bleeding seen. Recommendation: - Return patient to hospital ni for ongoing care. - Cont PPI daily as an out patient. - Keep tight control of INR. --Discharge plan: Protonix daily Monitor INR closely to avoid supratherapeutic INR Discontinue aspirin (3) Acute kidney injury superimposed on chronic kidney disease: Baseline creatinine 1.29 with hx of CKD stage 3 BUN/creatinine 78 and 1.28 with a ratio of 61 Prerenal secondary to hypovolemia crea back to baseline (4) Hypokalemia: resolved (5) Hypertension: His blood pressure remained on the low normal side Systolic BP in the 90s and discharged today Hold Lasix until seen by primary care physician Patient advised to discontinue lisinopril also Aspirin discontinued in light of GI bleed --Monitor blood pressure and follow-up with PCP next week (6) Atrial fibrillation: Continue diltiazem 5 mg of vitamin K was ordered in ED inr 1.0 Resume Coumadin We will touch base with Coumadin clinic to update them Patient advised to check INR on Saturday and report to Coumadin clinic on Saturday (7) COPD (chronic obstructive pulmonary disease): No acute exacerbation Not on ICS/LABA or SONY former hx of tobacco abuse (8) Chronic low back pain: Continue gabapentin and tramadol (9) History of pulmonary embolism: Coumadin resumed (10) DVT prophylaxis: SCDs given Full Code Disposition: Discharged home Follow-up with PCP on Saturday, July 09 Follow-up with Coumadin clinic on Saturday Case discussed in detail and at length with patient, she is agreeable comfortable plan of care, all questions answered Subjective FF UP FOR ANEMIA, POSSIBLE GI BLEED seen resting in bedside chair , comfortable states she feels much better overall denies melena/hematochezia no abdominal pain tolerating diet well denies chest pain, dyspnea, palpitations, nausea no other symptoms states she is ready and would like to be discharged today Review of Systems Review of Systems: All systems reviewed & are unremarkable except as noted in HPI & below Physical Exam Physical Exam: General- oriented x 3, not in distress, speaks in sentences with no effort or accessory muscle use Eyes- anicteric Neck- no JVD Lungs- clear BS BL no rales no wheezing Heart- normal rate, regular rhythm; no murmurs Abdomen- normal bowel sounds, nondistended, soft, nontender Extremities- no pretibial edema, no calf tenderness Neuro- alert, oriented x 3; no gross focal neurologic deficits Skin- warm & dry Results & Data Vital Signs (Past 12 Hours) Vital Signs Temp Pulse Pulse Pulse Resp BP Pulse Ox 07/04/18 14:29 36.8 C 73 91 H 18 108/70 94 07/04/18 11:25 36.8 C 91 H 18 108/70 94 07/04/18 08:00 89 07/04/18 07:50 36.9 C 89 18 94/59 L 94 07/04/18 03:10 36.8 C 88 18 93/53 L 94 Laboratory Results Laboratory Results - last 24 hr 07/04/18 07/04/18 07/04/18 05:38 05:38 10:31 WBC 6.86 RBC 2.30 L Hgb 7.6 L 8.7 L Hct 22.0 L MCV 95.7 MCH 33.0 MCHC 34.5 RDW Std Deviation 52.9 H RDW Coeff of Jimmy 15.7 H Plt Count 206 MPV 9.1 Immature Gran % (Auto) 0.4 Neut % (Auto) 50.5 Lymph % (Auto) 32.4 Beadle % (Auto) 9.8 Eos % (Auto) 6.3 Baso % (Auto) 0.6 Immature Gran # (Auto) 0.03 H Neut # (Auto) 3.47 Lymph # (Auto) 2.22 Beadle # (Auto) 0.67 H Eos # (Auto) 0.43 Baso # (Auto) 0.04 Polychromasia 1+ PT INR Sodium 139 Potassium 3.8 Chloride 109 H Carbon Dioxide 25 Anion Gap 5.0 BUN 27 H Creatinine 1.06 Est Cr Clr Drug Dosing 40.5 Est GFR ( Amer) 61.2 Est GFR (Non-Af Amer) 52.8 BUN/Creatinine Ratio 25.7 H Glucose 91 Calcium 8.2 L 07/04/18 10:31 WBC RBC Hgb Hct MCV MCH MCHC RDW Std Deviation RDW Coeff of Jimmy Plt Count MPV Immature Gran % (Auto) Neut % (Auto) Lymph % (Auto) Beadle % (Auto) Eos % (Auto) Baso % (Auto) Immature Gran # (Auto) Neut # (Auto) Lymph # (Auto) Beadle # (Auto) Eos # (Auto) Baso # (Auto) Polychromasia PT 10.4 INR 1.0 Sodium Potassium Chloride Carbon Dioxide Anion Gap BUN Creatinine Est Cr Clr Drug Dosing Est GFR ( Amer) Est GFR (Non-Af Amer) BUN/Creatinine Ratio Glucose Calcium (1) GI bleed GI bleed type/associated pathology: unspecified gastrointestinal hemorrhage type Qualified Code(s): K92.2 - Gastrointestinal hemorrhage, unspecified (2) Hypertension Hypertension type: essential hypertension Qualified Code(s): I10 - Essential (primary) hypertension (3) Atrial fibrillation Atrial fibrillation type: paroxysmal Qualified Code(s): I48.0 - Paroxysmal atrial fibrillation
--- NOTE | 2018-07-04 14:41 | Discharge Summary ---
Date of Service July 04, 2018 Admission HPI Per Admitting Provider pt with hx of GI bleeding for EGD Admission Exam Per Admitting Provider Gen: WD/WN, F, NAD, sitting up in bed, pleasant but flat affected, conversing easily Head: Normocephalic, Atraumatic Eyes: Sclera normal, no conjunctival injection, PERRLA, EOMI ENT: Gross hearing intact, normal pharynx, mucous membranes moist Neck: supple, no adenopathy, No JVD, no bruit, Resp: Clear to auscultation b/l, no wheeze, rales, rhonchi. 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 Extremities: No edema bilaterally, pedal pulses +2 and equal Skin: warm, moist, no rash, negative turgor, cap refill < 2sec, + ecchymosis to b/l lower ext Neuro: Alert and oriented x 3, speech normal, good mood/affect, cran nerve 2-12 intact grossly : deferred Principal Diagnosis Anemia, likely secondary to upper GI bleed, in the setting of Coumadin and aspirin use Discharge Exam General- oriented x 3, not in distress, speaks in sentences with no effort or accessory muscle use Eyes- anicteric Neck- no JVD Lungs- clear BS BL no rales no wheezing Heart- normal rate, regular rhythm; no murmurs Abdomen- normal bowel sounds, nondistended, soft, nontender Extremities- no pretibial edema, no calf tenderness Neuro- alert, oriented x 3; no gross focal neurologic deficits Skin- warm & dry Discharge Data Allergies Allergy/AdvReac Type Severity Reaction Status Date / Time brimonidine Allergy Intermediate OTHER-SEE Verified 07/02/18 10:23 COMMENT ceftriaxone Allergy Intermediate RASH Verified 07/02/18 10:23 chlorhexidine Allergy Intermediate RASH Verified 07/02/18 10:23 vancomycin Allergy Intermediate red jez Verified 07/02/18 10:23 syndrome codeine Allergy Mild GI SYMPTOMS Verified 07/02/18 10:23 latex Allergy Mild RASH Verified 07/02/18 10:23 oxycodone Allergy Mild GI Verified 07/02/18 10:23 SYMPTOMS-TYL. W/CODEINE OK nickel Allergy Unknown RASH Verified 07/02/18 10:23 diphenhydramine AdvReac Intermediate Hyper Verified 07/02/18 10:23 Consultations 07/02/18 11:38 ED Decision to Admit Stat 07/02/18 12:45 Consult Gastroenterology Routine 07/02/18 14:09 Consult Case Management - Discharge Planning Routine Procedures Performed Operation Date: 07/03/18 08:30 Actual Procedures p Esophagogastroduodenoscopy - Aiden Campos Hospital Course (1) GI bleed: (2) Anemia: This is a 72-year-old female has a significant past medical history of PAF on Coumadin, HTN, HLD, COPD, CKD stage III, COPD, hypomagnesemia, glaucoma, history of MSSA bacteremia, history of AVN left hip status post Girdlestone procedure, history of tiny right lung PE while off coumadin for colonoscopy who presents to [facility] secondary to low blood pressure and dizziness x2 days. While in ED her H&H was noted to be 7.3/21.1, INR 2.5. INR on 06/27 was 4.9 She had elevated bun/cr at 78/1.28. CXR no acute abn and ecg revealed NSR. She remained hemodynamically stable. +FOBT She was ordered to receive VIT K IV 5mg and PPI bolus/gtt. -- s/p 1 unit pRBC Hg improved from 7.3 to 8.8, remained stable since transfusion Placed on Protonix drip No recurrence of melena or hematochezia while admitted -- s/p EGD by Dr. Campos gastritis Findings: The esophagus was normal. Scattered moderate inflammation was found in the gastric antrum. The examined duodenum was normal. The cardia and gastric fundus were normal on retroflexion. Impression: - Normal esophagus. - Gastritis. - Normal examined duodenum. - No specimens collected. - No active bleeding seen. Recommendation: - Return patient to hospital ni for ongoing care. - Cont PPI daily as an out patient. - Keep tight control of INR. --Discharge plan: Protonix daily Monitor INR closely to avoid supratherapeutic INR Discontinue aspirin (3) Acute kidney injury superimposed on chronic kidney disease: Baseline creatinine 1.29 with hx of CKD stage 3 BUN/creatinine 78 and 1.28 with a ratio of 61 Prerenal secondary to hypovolemia crea back to baseline (4) Hypokalemia: resolved (5) Hypertension: His blood pressure remained on the low normal side Systolic BP in the 90s and discharged today Hold Lasix until seen by primary care physician Patient advised to discontinue lisinopril also Aspirin discontinued in light of GI bleed --Monitor blood pressure and follow-up with PCP next week (6) Atrial fibrillation: Continue diltiazem 5 mg of vitamin K was ordered in ED inr 1.0 Resume Coumadin will touch base with Coumadin clinic to update regarding patient's Coumadin dosing and INR check Patient advised to check INR on Saturday and report to Coumadin clinic on Saturday (7) COPD (chronic obstructive pulmonary disease): No acute exacerbation Not on ICS/LABA or SONY former hx of tobacco abuse (8) Chronic low back pain: Continue gabapentin and tramadol (9) History of pulmonary embolism: Coumadin resumed (10) DVT prophylaxis: SCDs given Disposition: Discharged home Follow-up with PCP on Saturday, July 09 Follow-up with Coumadin clinic on Saturday 13 Case discussed in detail and at length with patient, she is agreeable comfortable plan of care, all questions answered Total Time Total Time Spent Total Time Spent (In Minutes): 50 minutes Discharge Plan Discharge Items Patient Disposition: Home - Self-Care Reason For Visit: GIB Discharge Diagnosis: ANEMIA, LIKELY FROM UPPER GI BLEED Discharge Goals: Diagnostic testing and Therapeutic intervention Activity: As commented below Activity Comment: RESUME ACTIVITY GRADUALLY TOLERATED Lifting: Wait until after follow-up appointment Exercise/Sports: Wait until after follow-up appointment Driving/Machine Use Comment: NO DRIVING UNTIL CLEARED BY PRIMARY CARE PHYSICIAN Non-emergency contact: Primary Care Provider Call non-emergency contact if: you have any medication questions, your symptoms worsen and you have a fever Follow-up/Referrals: Jeremiah Ascencio MD [Primary Care Provider] - 07/09/18 12:45 pm Diet: Regular Addtl Provider Instructions: PLEASE HOLD LASIX AND LISINOPRIL UNTIL RE-EVALUATED BY DR. ASCENCIO. CALL PRIMARY CARE PHYSICIAN OR RETURN TO THE ER IMMEDIATELY IF WITH RECURRENCE/WORSENING OF SYMPTOMS, BLOOD IN THE STOOL, WEAKNESS, DIZZINESS, SHORTNESS OF BREATH. Prescriptions: New pantoprazole 40 mg Tablet,Delayed Release (Dr/Ec) 40 mg PO QAM 30 Days Qty: 30 RF: 0 Continued diltiazem HCl [Tiazac] 180 mg capsule,extended release 24 hr 180 mg PO DAILY RF: 0 acetaminophen [Tylenol Extra Strength] 500 mg tablet 500 mg PO Q4H PRN (Reason: Fever Or Pain) RF: 0 famotidine [Pepcid] 20 mg tablet 20 mg PO DAILY PRN (Reason: Indigestion) RF: 0 ferrous sulfate 325 mg (65 mg iron) tablet 325 mg PO DAILY RF: 0 docusate sodium [Colace] 100 mg capsule 100 mg PO BID RF: 0 ondansetron 4 mg tablet,disintegrating 4 mg PO Q6H PRN (Reason: Nausea) RF: 0 hrobxney-iwpmaaz-xjdt-lutein tablet 1 tab PO DAILY RF: 0 calcium carbonate-vitamin D3 500 mg(1,250mg) -600 unit tablet,chewable 2 tab PO DAILY RF: 0 warfarin 4 mg tablet 4 mg PO .COMPLEX RF: 0 warfarin 6 mg tablet 6 mg PO .COMPLEX RF: 0 tramadol 50 mg tablet 50 mg PO Q6H PRN (Reason: pain) Qty: 90 RF: 0 gabapentin 300 mg capsule 300 mg PO TID Qty: 90 RF: 2 sennosides-docusate sodium [Senokot-S] 8.6-50 mg Tablet 1 tab PO HS RF: 0 Travatan Z 0.004 % Drops 1 drp OPHTHALMIC (EYE) PM RF: 0 Discontinued aspirin [Adult Low Dose Aspirin] 81 mg tablet,delayed release (DR/EC) 81 mg PO DAILY RF: 0 furosemide [Lasix] 40 mg Tablet 40 mg PO DAILY RF: 0 Stand-Alone Forms: [facility] Discharge Orders: Discharge Order (Routine); Ordered 07/04/18 Ordered By: Velasquez Simms Admission Data Admit Date/Time: 07/02/18 12:45 Attending Provider: Velasquez Simms Admit Provider: Velasquez Simms Primary Care Provider: Jeremiah Ascencio Other Providers: Amina Gr Donald S. Service: Telemetry Medical Other Interventions: Discharge Summary Assessment (RN) Last Done: 07/04/18 14:29
== END 2018-07-04 18:03 | disposition home or self-care (01) | DRG 378 ==
LOC: ED 09:32 → 2S 12:45 → 2N 07-03 21:18